=== PATIENT | male | born 1960 | race Caucasian/White ===

== ENCOUNTER 2017-03-24 09:18 | Outpatient (RCR) | payer MEDICARE, OTHER ==
[~2017-03-24 09:18] MED LIST: ALPR2TAB2 PO; ALPR2TAB6 PO; ASP81CT; CARI350T PO; DULO60CA6 PO; HYDR-3720 PO; HYDROCODONE; LISI10TA2 PO; LNS30CCR; LOTREL; OMEP20CA12; QUET50TA21 PO; SIMV20TA3 PO; SMV20T; WARF2.5T56 PO
== END 2017-04-02 12:17 | disposition home or self-care (01) ==
PROVIDERS: ATTEND Orthopaedic Surgery
DX: Z47.1 Aftercare following joint replacement surgery (principal); Z96.651 Presence of right artificial knee joint

== ENCOUNTER 2017-11-22 06:23 | Outpatient (CLI) | payer MEDICARE, OTHER ==
[~2017-11-22] VITALS: Ht 175.3 cm; Wt 81.6 kg
[2017-11-22] MEDS ORDERED: CARB200T PO (15:56)
[2017-11-22] MEDS ORDERED: ALPR2TAB6 PO (15:56)
[2017-11-22] MEDS ORDERED: DULO20CA18 PO (15:56)
[2017-11-22] MEDS ORDERED: LISI-552 PO (15:56)
[2017-11-22] MEDS ORDERED: PANT40TA3 PO (15:56)
[2017-11-22] MEDS ORDERED: MEMA10TA22 PO (15:56)
[2017-11-22] MEDS ORDERED: HYDR-3820 PO (15:56)
[2017-11-22] MEDS ORDERED: PRAV20TA3 PO (15:56)
[2017-11-22] MEDS ORDERED: CARV12.52 PO (15:56)
== END 2017-11-22 15:57 ==
LOC: PREOP 06:23
PROVIDERS: ATTEND Surgery
DX: Z01.818 Encounter for other preprocedural examination (principal)

== ENCOUNTER 2017-11-24 09:55 | Day surgery (SDC) | payer MEDICARE, OTHER ==
[~2017-11-24] VITALS: Ht 175.3 cm; Wt 81.6 kg
[~2017-11-24 09:55] MED LIST changes: +CARB200T PO; +CARV12.52 PO; +DULO20CA18 PO; +HYDR-3820 PO; +LISI-552 PO; +MEMA10TA22 PO; +PANT40TA3 PO; +PRAV20TA3 PO
[2017-11-24] MEDS ORDERED: fentaNYL INJECTION 100 MCG/2 ML AMP IVP PRN (10:15)
[2017-11-24] MEDS ORDERED: LIDOCAINE JELLY 2% (XYLOCAINE) 5 ML TUBE MM PRN (10:15)
[2017-11-24] MEDS ORDERED: MIDAZOLAM 2 MG/2 ML (VERSED) VIAL IVP PRN (10:15)
--- NOTE | 2017-11-24 10:25 | Conscious Sedation/ASA ---
Conscious Sedation Pre-Proced Time Reviewed: 10:20 ASA Class: 3 Airway Mallampati Classification: ([place] appropriate class) I. II. III, IV Lungs Heart ASA score ASA 1: a normal healthy patient ASA 2: a patient with a mild systemic disease (mid diabetes, controlled hypertension, obesity ASA 3: a patient with a severe systemic disease that limits activity (angina , COPD, prior Myocardial infarction) ASA 4: a patient with an incapacitating disease that is a constant threat to life (CHF, renal failure) ASA 5: a moribund patient not expected to survive 24 hrs. (ruptured aneurysm) ASA 6: a declared brain patient whose organs are being harvested. For emergent operations, add the letter E after the classification Grade 2 Sedation Plan: Analgesia, Amnesia, Plan communicated to team members, Discussed options with patient/fam, Discussed risks with patient/fam Note The patient is an appropriate candidate to undergo the planned procedure, sedation, and anesthesia. The patient immediately re-assessed prior to indication. SIENA MULLIGAN MD November 24, 2017 10:25 am
--- NOTE | 2017-11-24 10:29 | Progress Note-Pre Operative ---
Pre-Operative Progress Note H&P Reviewed The H&P was reviewed, patient examined and no changes noted. Date Seen by Provider: November 24, 2017 Time Seen by Provider: 10:20 Date H&P Reviewed: November 24, 2017 Time H&P Reviewed: 10:20 Pre-Operative Diagnosis: GERD, hx polyp SIENA MULLIGAN MD November 24, 2017 10:28 am
[2017-11-24] MEDS ORDERED: ACETAMINOPHEN 325 MG TABLET/CAPLET (TYLENOL) PO PRN (10:30)
[2017-11-24] MEDS ORDERED: ONDANSETRON 4 MG/2 ML (SDV) Z0FRAN IV PRN (10:30)
[2017-11-24] MEDS ORDERED: morphine INJ 10 MG/ML 1ML (SYR OR VIAL) IV PRN (10:30)
[2017-11-24] MEDS: NS IV 500 ML 500 ML IV SCH ×2 (10:30→13:40)
[2017-11-24] MEDS ORDERED: HYDROcodone/APAP 5 MG/325 MG (LORTAB) TAB PO PRN (10:30)
[2017-11-24 10:40] VITALS: BP 136/89
[2017-11-24] MEDS ORDERED: MIDAZOLAM 2 MG/2 ML (VERSED) VIAL ONE ×6 (11:41→13:26)
[2017-11-24] MEDS ORDERED: fentaNYL INJECTION 100 MCG/2 ML AMP ONE (11:41)
[2017-11-24] MEDS ORDERED: LIDOCAINE JELLY 2% (XYLOCAINE) 5 ML TUBE ONE (11:41)
[2017-11-24] MEDS ORDERED: HURRICAINE EXT TUBE (BENZOCAINE) ONE (11:42)
[2017-11-24] MEDS ORDERED: PROPOFOL INJECTION 50 ML IV ONE ×2 (12:12→13:05)
[2017-11-24] MEDS ORDERED: PHENYLEPHRINE 100 MCG/ML 10 ML (ANESTHESIA) SYR ONE (13:20)
[2017-11-24] MEDS ORDERED: NS IV 500 ML 500 ML ONE (13:31)
--- NOTE | 2017-11-24 13:58 | Progress Note-Post Operative ---
Post-Operative Progess Note Surgeon (s)/Flasher Adjuster (s) Surgeon SIENA MULLIGAN MD Flasher Adjuster: none Pre-Operative Diagnosis GERD, hx polyp Post-Operative Diagnosis reflux esophagitis(class B), no HH, mild-mod gastritis. chronic stage 1 ext and int hemorrhoids, mild sigmoid diverticulosis. Procedure & Operative Findings Date of Procedure 11/24/17 Procedure Performed/Findings EGD with bx. Colonoscopy. Anesthesia Type MAC Estimated Blood Loss Estimated blood loss (mL): minimal Specimens/Packing Specimens Removed GE jxn, antrum SIENA MULLIGAN MD November 24, 2017 13:58
[2017-11-24] MEDS ORDERED: HURRICAINE EXT TUBE (BENZOCAINE) XX ONE (14:00)
--- NOTE | 2017-11-24 14:00 | Discharge Inst-Surgical ---
D/C Lap Instructions-ESE Follow Up PRN Activity as tolerated High Fiber Diet 25g or more per day Avoid Alcohol, Caffeine, Spicy [place] and Acid foods. Drink 64 fluid oz or more of fluids per day. Symptoms to Report: Fever over 101 degree F, Nausea/Vomiting If any problems/questions: Contact your physician or go to Emergency Room SIENA MULLIGAN MD November 24, 2017 14:00
[2017-11-24 14:05] VITALS: BP 99/54
[2017-11-24 14:30] VITALS: BP 99/74
[2017-11-24 14:35] VITALS: BP 99/74
--- NOTE | 2017-11-24 14:51 | Anesthesia-General Post-Op ---
MAC Patient Condition Mental Status/LOC: Same as Preop Cardiovascular: Satisfactory Nausea/Vomiting: Absent Respiratory: Satisfactory Pain: Controlled Complications: Absent Post Op Complications Complications None Follow Up Care/Instructions Patient Instructions None needed. Anesthesiology Discharge Order Discharge Order Patient is doing well, no complaints, stable vital signs, no apparent adverse anesthesia problems. OSITO HERNANDEZ DO November 24, 2017 14:51
--- NOTE | 2017-11-24 23:29 | OPERATIVE REPORT ---
DATE OF SERVICE: 11/24/2017 ATTENDING PRIMARY CARE PHYSICIAN: Dr. Eid. PREOPERATIVE DIAGNOSES: Recurrent gastroesophageal reflux disease, screening colonoscopy. POSTOPERATIVE DIAGNOSES: Reflux esophagitis class B, no recurrent hiatal hernia, mild to moderate gastritis. Chronic stage II external and internal hemorrhoids, mild sigmoid diverticulosis. PROCEDURE: EGD with biopsy and colonoscopy. SURGEON: Siena Mulligan MD. ANESTHESIA: Monitored anesthesia care. ESTIMATED BLOOD LOSS: Minimal. FINDINGS: EGD reflux esophagitis class B. Recurrent previous wrap, no recurrent hiatal hernia, mild to moderate gastritis, no formal ulcerations, polyps or any neoplasms. Pylorus and duodenum appeared normal with no distal obstructions. Colonoscopy chronic stage I external and internal hemorrhoids, not actively edematous nor inflamed and no bleeding. There was a mild sigmoid diverticulosis. The remainder of the colon was normal. DISPOSITION: The patient tolerated the procedure well. INDICATIONS: The patient is a 57-year-old male who has had recurrent episodes of epigastric burning sensation as well as crampy pain. He has had a longstanding history of gastroesophageal reflux disease and found to have a hiatal hernia and underwent a hiatal hernia repair as well as a Hill gastropexy in 2006. He reports that this helped with his reflux type of symptoms; however, in the past several months, he reports mild recurrent episodes of discomfort in the epigastric region. He does have positive risk factors including taking nonsteroidal anti-inflammatories as well as chewing tobacco. He also is in need of a followup screening colonoscopy. His last one was approximately 10 years ago. He states that he did have a polyp, which was a tubular adenoma. DESCRIPTION OF PROCEDURE: The patient was brought to the endoscopy suite, laid in the left lateral decubitus position. After adequate IV pain and sedating medications and monitored anesthesia care, the mouthpiece was applied. Endoscope was placed in the mouth, visualizing the pharynx and hypopharyngeal region. Vocal cords, epiglottis and vallecula identified and appeared to be normal. The endoscope was then gently intubated in the esophageal opening and esophagus insufflated. The endoscope was then advanced to the first, second and third portions of the esophagus; at the level of the GE junction, a reflux esophagitis class B identified. There were no ulcers or strictures identified in this region. A biopsy was taken using forceps with visualization of good hemostasis. The endoscope was then easily advanced into the stomach and endoscope retroflexed visualizing no recurrent hiatal hernia with intact previous antireflux procedure. There was a mild to moderate gastritis. No formal ulcers, polyps or any neoplasms identified. A biopsy was taken of the antrum for H. pylori with forceps with visualization of good hemostasis. The endoscope was then advanced to the pylorus and the first and second portions of duodenum, which appeared normal with no distal obstructions. The endoscope was then slowly withdrawn while taking a second look and suctioning of residual air with no additional findings. The patient tolerated this portion of the procedure well. We will recommend the necessary lifestyle and diet accommodation including cessation of caffeinated beverages as well as chewing tobacco as well as small and more frequent meals, avoidance of eating at night as well as head elevation while lying supine. He also needs to avoid caffeine, spicy, greasy and acidic foods. Under the same monitored anesthesia care, we then proceeded with the colonoscopy portion of the procedure. A digital rectal examination was performed, which revealed chronic stage I external and internal hemorrhoids, not actively edematous nor inflamed and no bleeding. Normal sphincter tone was felt and there were no palpable masses. Prostate gland was palpable and appeared normal. The endoscope was then intubated to the anus and rectum gently insufflated. The endoscope was then advanced through the valves of [place] in the rectum with no polyps or any neoplasms identified. We then proceeded through the sigmoid colon where mild sigmoid diverticulosis identified. The endoscope was then advanced to the remainder of the descending, transverse and ascending colon to the cecum. These segments were normal. There were no polyps or any neoplasms identified throughout the colon or rectum. The endoscope was then slowly withdrawn while taking a second look and suctioning of residual air with no additional findings. The patient tolerated the procedure well. We will recommend a high-fiber diet with at least 30 grams of fiber per day as well as at least 64 fluid ounces of water daily to promote soft stools on a daily basis. He does not need another colonoscopy for another 10 years. 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
== END 2017-11-24 14:35 | disposition home or self-care (01) ==
LOC: ENDO 09:55
PROVIDERS: ATTEND Surgery
DX: Z12.11 Encounter for screening for malignant neoplasm of colon (principal); K21.0 Gastro-esophageal reflux disease with esophagitis; K29.70 Gastritis, unspecified, without bleeding; K57.30 Diverticulosis of large intestine without perforation or abscess without bleeding; K64.1 Second degree hemorrhoids; F17.220 Nicotine dependence, chewing tobacco, uncomplicated; Z86.010 Personal history of colon polyps; I10 Essential (primary) hypertension; E78.00 Pure hypercholesterolemia, unspecified; F03.90 Unspecified dementia, unspecified severity, without behavioral disturbance, psychotic disturbance, mood disturbance, and anxiety; F41.9 Anxiety disorder, unspecified; F32.9 Major depressive disorder, single episode, unspecified; Z79.899 Other long term (current) drug therapy; Z95.1 Presence of aortocoronary bypass graft
CPT/HCPCS: 43239; G0105; 88305

== ENCOUNTER → 2018-11-17 | Outpatient (CLI) | payer MEDICARE, OTHER ==
[2018-11-17 08:37] LABS: BASOPHILS % (AUTO) 0 % (0-10); EOSINOPHILS # (AUTO) 0.1 10^3/uL (0.0-0.3); EOSINOPHILS % (AUTO) 1 % (0-10); HEMATOCRIT 44 % (40-54); HEMOGLOBIN 15.4 G/DL (13.3-17.7); LYMPHOCYTES # (AUTO) 1.6 X 10^3 (1.0-4.0); LYMPHOCYTES % (AUTO) 23 % (12-44); MEAN CORPUSCULAR HEMOGLOBIN 30 PG (25-34); MEAN CORPUSCULAR HGB CONC 35 G/DL (32-36); MEAN CORPUSCULAR VOLUME 85 FL (80-99); MONOCYTES # (AUTO) 1.1 X 10^3 (0.0-1.0); MONOCYTES % (AUTO) 16 % (0-12); NEUTROPHILS # (AUTO) 4.2 X 10^3 (1.8-7.8); NEUTROPHILS % (AUTO) 60 % (42-75); PLATELET COUNT 229 10^3/uL (130-400)
--- NOTE | 2018-11-17 08:57 | Diagnostic Imaging Report ---
PROCEDURE: CT abdomen and pelvis without contrast. TECHNIQUE: Multiple contiguous axial images were obtained through the abdomen and pelvis without the use of intravenous contrast. Auto Exposure Controls were utilized during the CT exam to meet ALARA standards for radiation dose reduction. INDICATION: Generalized abdominal pain with nausea, vomiting and diarrhea. Correlation is made with prior study from 07/25/2013. Lung bases demonstrate scarring or atelectasis in the left lower lobe. No discrete liver mass is identified. The gallbladder is surgically absent. No biliary ductal dilatation is seen. There is some atrophy to the pancreas. Spleen is normal in size. No adrenal mass is detected. No renal calculi or hydronephrosis is identified. Cystic mass left kidney posteriorly measures 3.2 cm compared with 0.2 cm on prior study from 2013. Aorta is heavily calcified but nonaneurysmal. Bowel loops appear to be of normal caliber. No obstruction is seen. There is no ascites. The bladder is decompressed. No inflammatory process is seen. No definite abdominal or pelvic lymphadenopathy is detected. Bony structures are nonacute. IMPRESSION: 1. Left basilar atelectasis or scarring. 2. No acute feature in the abdomen or pelvis is identified. Dictated by: Dictated on workstation # [id number]
[2018-11-17 08:58] LABS: ALANINE AMINOTRANSFERASE 20 U/L (0-55); ALBUMIN 4.2 GM/DL (3.2-4.5); ALKALINE PHOSPHATASE 95 U/L (40-136); AMYLASE 36 U/L (25-125); BILIRUBIN,TOTAL 0.5 MG/DL (0.1-1.0); BUN/CREATININE RATIO 12; CALCIUM 9.2 MG/DL (8.5-10.1); CARBON DIOXIDE 27 MMOL/L (21-32); CHLORIDE 94 MMOL/L (98-107); CREATININE SERUM 0.97 MG/DL (0.60-1.30); GFR ESTIMATED > 60; GLUCOSE 108 MG/DL (70-105); LIPASE 15 U/L (8-78); POTASSIUM 3.2 MMOL/L (3.6-5.0); SODIUM 133 MMOL/L (135-145); TOTAL PROTEIN 7.2 GM/DL (6.4-8.2)
== END ==
LOC: RAD 08:21
PROVIDERS: ATTEND Nurse Practitioner Family
DX: R10.84 Generalized abdominal pain (principal); R11.2 Nausea with vomiting, unspecified; R19.7 Diarrhea, unspecified; Z90.49 Acquired absence of other specified parts of digestive tract
CPT/HCPCS: 36415; 74176; 80053; 82150; 83690; 85025

== ENCOUNTER → 2019-12-08 | Outpatient (CLI) | payer MEDICARE, OTHER ==
[~2019-12-08] MED LIST changes: +ACHYD1T PO; +CATHETER FLUSH 10 ML SYR IV PRN; -DULO20CA18 PO; +DULO20CA19 PO; +HOLD METFORMIN - RECEIVED CONTRAST 20 ML VIAL IV SCH; -HYDR-3820 PO; +IOHEXOL 350 MG/ML 100 ML (OMNIPAQUE 350) VIAL IV ONE; -MEMA10TA22 PO; +MEMA10TA57 PO; +NS 100 ML (IVPB) BAG IV ONE; +RT-ALBUTEROL SULF 2.5 MG/3 ML PRE-MIX VIAL INH ONE
[2019-12-08 14:29] LABS: BUN/CREATININE RATIO 9; CREATININE SERUM 0.93 MG/DL (0.60-1.30); GFR ESTIMATED > 60
[2019-12-08 16:20] LABS: ABG BASE EXCESS -1.1 MMOL/L (-2.5-2.5); ABG OXYGEN SATURATION 97 % (94-100); ABG PCO2 40 MMHG (35-45); ABG PH 7.38 (7.37-7.43); ABG PO2 89 MMHG (79-93); ABG TCO2 24.5 MMOL/L (21.0-31.0); ALLENS TEST YES-POS; INSPIRED O2 RA; PATIENT TEMP 36.7; VENTILATOR NO
--- NOTE | 2019-12-08 18:56 | Diagnostic Imaging Report ---
CT CHEST W TECHNIQUE: Multiple contiguous axial images were obtained through the chest with the use of intravenous contrast. All CT scans use one or more of the following dose optimizing techniques: automated exposure control, MA and/or KvP adjustment based on a patient size and exam type, or iterative reconstruction. INDICATION: Shortness of breath COMPARISON: CT chest from 12/17/2010 FINDINGS: Lungs and airway: No endoluminal nodule within the trachea. Left basilar bandlike atelectasis/scar is present. There is small amount of right basilar linear atelectasis. No pulmonary mass or nodule that would suggest neoplastic process. Pleura: No pleural effusion or pneumothorax. Heart and mediastinum: Thyroid is normal were seen. No supraclavicular or axillary lymphadenopathy. No mediastinal, hilar or juxtaphrenic lymphadenopathy. The heart is enlarged and has undergone CABG. No pericardial effusion. Normal caliber thoracic aorta. Esophagus is unremarkable. Upper abdomen: Cholecystectomy. No acute abnormality upper abdomen. Musculoskeletal: Sternotomy. No worrisome focal osseous lesions. IMPRESSION: 1. No acute abnormality in the chest. 2. No features of neoplasm. 3. Chronic left basilar linear atelectasis/scar. Dictated by: Dictated on workstation # [id number]
== END ==
LOC: RT 13:50
PROVIDERS: ATTEND Nurse Practitioner Family
DX: J98.4 Other disorders of lung (principal); R06.02 Shortness of breath; R05 Cough; Z95.1 Presence of aortocoronary bypass graft; Z90.49 Acquired absence of other specified parts of digestive tract; Z98.890 Other specified postprocedural states
CPT/HCPCS: 36415; 36600; 71260; 82565; 82805; 84520; 94060; 94726; 94729

== ENCOUNTER → 2020-01-04 | Outpatient (CLI) | payer MEDICARE, OTHER ==
[~2020-01-04] MED LIST changes: -CATHETER FLUSH 10 ML SYR IV PRN; -HOLD METFORMIN - RECEIVED CONTRAST 20 ML VIAL IV SCH; -IOHEXOL 350 MG/ML 100 ML (OMNIPAQUE 350) VIAL IV ONE; -NS 100 ML (IVPB) BAG IV ONE; -RT-ALBUTEROL SULF 2.5 MG/3 ML PRE-MIX VIAL INH ONE
== END ==
LOC: CARD 09:33
PROVIDERS: ATTEND Internal Medicine Cardiovascular Disease
DX: I34.0 Nonrheumatic mitral (valve) insufficiency (principal); R55 Syncope and collapse; E78.5 Hyperlipidemia, unspecified; I10 Essential (primary) hypertension; I25.10 Atherosclerotic heart disease of native coronary artery without angina pectoris; R00.2 Palpitations
CPT/HCPCS: 93306

== ENCOUNTER → 2020-01-08 | Outpatient (CLI) | payer MEDICARE, OTHER ==
[~2020-01-08] VITALS: Ht 175 cm; Wt 85.0 kg
[~2020-01-08] MED LIST changes: +CATHETER FLUSH 10 ML SYR IV PRN; +REGADENOSON 0.4 MG/5 ML SYR (LEXISCAN) IV ONE
[2020-01-08 11:42] VITALS: BP 155/97
--- NOTE | 2020-01-08 11:42 | Cardiology Stress Test Report ---
Stress Test Report Date of Procedure/Referring: Date of Procedure: Jan 08, 2020 PCP Josue Carver MD Admitting Physician Endy Grimm MD Indications: Syncope Baseline Heart Rate: 60 Baseline Blood Pressure: Blood Pressure Systolic: 155 Blood Pressure Diastolic: 97 Baseline EKG: Baseline EKG: Sinus rhythm Summary After explaining the procedure to the patient, he signed a consent and then br ought to the stress nuclear laboratory. Patient received 0.4 mg Lexiscan for stress test, ECG, heart rate and blood pressure were monitored continuously. Resting and stress dose of radio tracer were injected, imaging was acquired and reviewed in short axis, horizontal long axis and vertical long axis views. TID: 1.03 SSS: 9 SDS: 4 EF: 68 1. Patient tolerated Lexiscan well 2. Diaphragmatic attenuation with decreased uptake involving the whole inferior wall and inferolateral wall with mild reversibility 3. Normal left ventricular size, EF 68 percent JOSUE CARVER MD Jan 08, 2020 11:42
== END ==
LOC: CARD 07:56
PROVIDERS: ATTEND Internal Medicine Cardiovascular Disease
DX: I25.10 Atherosclerotic heart disease of native coronary artery without angina pectoris (principal); R00.2 Palpitations; I10 Essential (primary) hypertension; E78.5 Hyperlipidemia, unspecified; J98.6 Disorders of diaphragm
CPT/HCPCS: 78452; 93017; A9502

== ENCOUNTER → 2020-01-10 | Outpatient (CLI) | payer MEDICARE ==
[~2020-01-10] MED LIST changes: +ATOR40TA70 PO; +CARV25TA PO; -CATHETER FLUSH 10 ML SYR IV PRN; +CETI10TA17 PO; +DONE10TA41 PO; +HYDR25TA4 PO; +ISOS30TA3 PO; +LIPA1CAP67 PO; +LISI40TA PO; +METO5TAB2 PO; +MONT10TA26 PO; +PRAZ2CAP2 PO; +QUET100T PO; -REGADENOSON 0.4 MG/5 ML SYR (LEXISCAN) IV ONE; +RT-ALBUINH INH; +TOPI50TA13 PO; +TRZ50T PO; +VORT20TA PO
== END ==
LOC: LABNPT 06:59
PROVIDERS: ATTEND Internal Medicine Cardiovascular Disease
DX: Z01.812 Encounter for preprocedural laboratory examination (principal); Z20.828 Contact with and (suspected) exposure to other viral communicable diseases
CPT/HCPCS: 87635

== ENCOUNTER 2020-01-12 07:06 | Day surgery (SDC) | payer MEDICARE, OTHER ==
[2020-01-12] VITALS (12 sets, daily range): BP systolic 121–176; BP diastolic 80–89
[~2020-01-12] VITALS: Ht 175 cm; Wt 87.0 kg
[~2020-01-12 07:06] MED LIST changes: -ATOR40TA70 PO; -CARV25TA PO; -CETI10TA17 PO; -DONE10TA41 PO; -HYDR25TA4 PO; -ISOS30TA3 PO; -LIPA1CAP67 PO; -LISI40TA PO; -METO5TAB2 PO; -MONT10TA26 PO; -PRAZ2CAP2 PO; -QUET100T PO; -RT-ALBUINH INH; -TOPI50TA13 PO; -TRZ50T PO; -VORT20TA PO
[2020-01-12] MEDS ORDERED: NS IV 1000 ML 1,000 ML ONE (07:26)
[2020-01-12] MEDS ORDERED: LIDOCAINE 1% INJ 20 ML 20 ML VIAL ONE (07:26)
[2020-01-12] MEDS ORDERED: HEParin (CATH LAB) 2,000 ML IV ONE (07:26)
[2020-01-12] MEDS ORDERED: NS IV 1000 ML 1,000 ML IV SCH ×2 (07:30→09:26)
[2020-01-12 07:56] LABS: HEMOGLOBIN 13.9 G/DL (13.3-17.7); MEAN PLATELET VOLUME 8.7 FL (7.4-10.4); RED CELL DISTRIBUTION WIDTH 13.6 % (10.0-14.5); WHITE BLOOD COUNT 6.2 10^3/uL (4.3-11.0)
[2020-01-12 07:59] LABS: BILIRUBIN,URINE NEGATIVE (NEGATIVE); CLARITY,URINE CLEAR; COLOR,URINE YELLOW; GLUCOSE, URINE (UA) NEGATIVE (NEGATIVE); KETONES,URINE NEGATIVE (NEGATIVE); LEUKOCYTE ESTERASE ,URINE NEGATIVE (NEGATIVE); NITRITE,URINE NEGATIVE (NEGATIVE); PH,URINE 5.5 (5-9); PROTEIN,URINE NEGATIVE (NEGATIVE)
[2020-01-12] MEDS ORDERED: LIPA1CAP67 PO (08:03)
[2020-01-12] MEDS ORDERED: DONE10TA41 PO (08:03)
[2020-01-12] MEDS ORDERED: RT-ALBUINH INH (08:03)
[2020-01-12] MEDS ORDERED: QUET100T PO (08:03)
[2020-01-12] MEDS ORDERED: ATOR40TA70 PO (08:03)
[2020-01-12] MEDS ORDERED: ISOS30TA3 PO (08:03)
[2020-01-12] MEDS ORDERED: MONT10TA26 PO (08:03)
[2020-01-12] MEDS ORDERED: METO5TAB2 PO (08:03)
[2020-01-12] MEDS ORDERED: HYDR25TA4 PO (08:03)
[2020-01-12] MEDS ORDERED: PRAZ2CAP2 PO (08:03)
[2020-01-12] MEDS ORDERED: TRZ50T PO (08:03)
[2020-01-12] MEDS ORDERED: CETI10TA17 PO (08:03)
[2020-01-12] MEDS ORDERED: VORT20TA PO (08:03)
[2020-01-12] MEDS ORDERED: LISI40TA PO (08:03)
[2020-01-12] MEDS ORDERED: TOPI50TA13 PO (08:03)
[2020-01-12] MEDS ORDERED: CARV25TA PO (08:03)
[2020-01-12 08:14] LABS: BACTERIA,URINE NEGATIVE /HPF; WBC,URINE RARE /HPF
[2020-01-12 08:16] LABS: PROTHROMBIN TIME PATIENT 13.3 SEC (12.2-14.7)
[2020-01-12 08:24] LABS: ALBUMIN 4.2 GM/DL (3.2-4.5); BILIRUBIN,TOTAL 0.4 MG/DL (0.1-1.0); CALCIUM 8.7 MG/DL (8.5-10.1); CREATININE SERUM 1.23 MG/DL (0.60-1.30); POTASSIUM 3.4 MMOL/L (3.6-5.0); TOTAL PROTEIN 7.1 GM/DL (6.4-8.2)
[2020-01-12] MEDS ORDERED: MIDAZOLAM 5 MG/5 ML (VERSED) VIAL ONE (08:32)
[2020-01-12] MEDS ORDERED: fentaNYL INJECTION 100 MCG/2 ML AMP ONE (08:32)
--- NOTE | 2020-01-12 08:47 | Cardiac Procedure Note-CS/ASA ---
Pre-Procedure Note Pre-Op Procedure Note H&P Reviewed The H&P was reviewed, patient examined and no changes noted. Date H&P Reviewed: Jan 12, 2020 Time H&P Reviewed: 08:47 Conscious Sedation Pre-Proced Time 08:47 ASA Score 3 For ASA 3 and 4: Consider anesthesia and medical clearance. Also, for patients with a history of failed moderate sedation consider anesthesia. Airway Lungs Heart ASA score ASA 1: a normal healthy patient ASA 2: a patient with a mild systemic disease (mid diabetes, controlled hypertension, obesity x ASA 3: a patient with a severe systemic disease that limits activity (angina, COPD, prior Myocardial infarction) ASA 4: a patient with an incapacitating disease that is a constant threat to life (CHF, renal failure) ASA 5: a moribund patient not expected to survive 24 hrs. (ruptured aneurysm) ASA 6: a declared brain- patient whose organs are being harvested. For emergent operations, add the letter E after the classification Mallampati Classification Grade 3 Sedation Plan Analgesia, Amnesia, Plan communicated to team members, Discussed options with patient/fam, Discussed risks with patient/fam The patient is an appropriate candidate to undergo the planned procedure, sedation, and anesthesia. The patient immediately re-assessed prior to indication. JOSUE SWENSON MD Jan 12, 2020 08:47
[2020-01-12] MEDS ORDERED: PATIENT MAY USE OWN MEDS, ALL PO SCH (09:30)
--- NOTE | 2020-01-12 09:31 | Discharge Inst-Post CATH ---
Discharge Inst-CATH/EP Problems Reviewed?: Yes Post Cardiac Cath/EP D/C Inst Follow Up/Plan Appointment with Dr Carver's office in 2-4 weeks <b>CARDIAC CATH/EP PROCEDURE DISCHARGE INSTRUCTIONS</b> ACTIVITY * Go Home directly and rest. * Limit activity of the leg (or wrist if it was used) for 7 days including aerobics, swimming, jogging, bicycling, etc. * Restrict stair-climbing for 7 days if possible, if not, climb up with your non-cath leg, then bring together on the same step. * Avoid lifting, pushing, pulling or excessive movement of the affected extremity for 7 days. * Customary sexual activity may be resumed after 2 days-use caution not to use a position that strains or causes pain to the affected extremity. * No driving for 24 hours. * NO SMOKING. * Avoid straining for bowel movements for 7 days. * Gentle walking on level ground is allowed. * Returning to work will depend on the type of procedure and the results. Your doctor will discuss this with you. CALL YOUR DOCTOR FOR ANY OF THE FOLLOWING: *If bleeding from the puncture site occurs- Apply gentle pressure to site with clean cloth and call your doctor or EMS. * If a knot or lump forms under the skin, increases in size, or causes pain. * If bruising appears to be worsening or moving further down your leg instead of disappearing. * Temperature above 101 F. CARE OF YOUR GROIN INCISION; * Bruising or purple discoloration of the skin near the puncture site is common. * You may shower only, no bathtub bathing for 5 days. Be careful to avoid slipping as your leg may feel stiff. * If a closure device was used on your femoral artery, please see the attached guide regarding care of the device and your leg. * Leave dressing on FOR 24 hours. CARE OF YOUR WRIST INCISION; * Bruising or purple discoloration of the skin near the puncture site is common. * You may shower. * DO NOT submerge wrist. * Leave dressing on FOR 24 hours. JOSUE CARVER MD Jan 12, 2020 9:31 am
--- NOTE | 2020-01-12 09:37 | Cardiac Cath Report ---
Cardiac Cath Report Physician (s)/Family Service Worker (s) Physician JOSUE SWENSON MD Pre-Procedure Diagnosis Pre-Procedure Diagnosis: coronary artery disease Post-Procedure Note Procedure Start Date: Jan 12, 2020 Name of Procedure: Left heart catheterization Vein graft angiogram MCFADDEN angiogram Findings/Procedure Note PROCEDURE NOTE: 60-year-old gentleman with history of coronary artery disease, CABG, has been having chest pain, had an abnormal stress test scheduled for cardiac catheterization possible PTCA. After explaining the procedure to the patient, all pros and cons were explained, all questions were answered. The patient signed the consent and then he was placed on the cardiac catheterization laboratory. Groin was prepped SL fashion local anesthesia was used. Sheath placed in the right femoral artery. Alexandra right and left catheter were used to access the coronary system.Vein Graft evaluated. MCFADDEN evaluated. Pigtail was used to access the left ventricular cavity. Left ventriculogram was done At the end of the procedure the sheath was removed. Closure device was used FINDINGS: Hemodynamics LV 122/19, end-diastolic pressure of 19 Aorta 123/60 mean of 88 ANATOMY: Left Main has severe disease Left Anterior Descending is occluded, competitive flow through the MCFADDEN and a vein graft to the diagonal Left Circumflex is occluded, competitive flow through the vein graft to the obtuse marginal Right Coronory Artery is occluded, competitive flow through the vein graft to the right coronary artery MCFADDEN to LAD is patent with excellent flow Vein Graft evaluation showed 3 vein graft: Vein graft to the right coronary artery is patent with excellent flow distally, small vessel disease Vein graft/jump graft to the diagonal and obtuse marginal branch is patent with excellent flow distally, small vessel disease LV Gram was done showing normal left ventricular size with mild diffuse hypokine noel, estimated ejection fraction 50 percent CONCLUSION: 1. Patent MCFADDEN to LAD, vein graft to right coronary artery, vein graft/jump graft to the diagonal and obtuse marginal branches and MCFADDEN to LAD with excellent flow distally, small vessel disease distally noted 2. Severe [place] coronary artery disease, corrected by the bypasses described above 3. Normal left ventricular size, mild diffuse hypokinesia, EF 50 percent DISCUSSION AND RECOMMENDATION: Medical therapy is recommended no intervention is warranted Anesthesia Type: Conscious Sedation Estimated blood loss (mL): 25 ml Contrast Amount: 90 ml Total Radiation Dose: 638 mGy Post-Procedure Diagnosis Post-operative diagnosis: Coronary artery disease Chest pain Hypertension Hyperlipidemia JOSUE SWENSON MD Jan 12, 2020 9:37 am
--- NOTE | 2020-01-12 11:07 | Diagnostic Imaging Report ---
INDICATION: Pre-heart catheterization. Patient has chest pain and coronary artery disease. Time of exam: 7:53 AM Comparison is made with prior chest from 07/19/2014. Changes of median sternotomy and CABG noted. Left hemidiaphragm is elevated. There is resultant left basilar subsegmental atelectasis. Otherwise, the lungs are clear. Pulmonary vascularity is normal. There is no effusion or pneumothorax. IMPRESSION: Left basilar subsegmental atelectasis. No acute feature is detected. Dictated by: Dictated on workstation # [id number]
--- OUTSIDE RECORDS SUMMARY | 2020-01-12 11:23 | XMS REPORT ---
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 100-240 Hospita 04-2 [Mass/Vol] Interpreta mg/dL l 020 tion Code Distric 09:11-0 t [address] [place] [address] ([id number]) Cholesterol in HDL 44 mg/dL Invalid 30-85 Hospita 02-0 4-2 [Mass/Vol] Interpreta mg/dL l 020 tion Code Distric 09:11-0 t [address] [place] [address] ([id number]) Cholesterol in LDL 144 mg/dL High 0-100 Hospita 02-0 4-2 [Mass/Vol] mg/dL l 020 Distric 09:11-0 t [address] [place] [address] ([id number]) Cholesterol in VLDL 18 mg/dL Invalid 0-42 mg/dL Hospita 2 [Mass/Vol] Interpreta l 020 tion Code Distric 09:11-0 t [address] [place] [address] ([id number]) Cholesterol.total/Ch 4.7 {ratio} Invalid 3.7-6.7 Hospita olesterol in HDL Interpreta l 020 [Mass ratio] tion Code Distric 09:-0 t [address] [place] [address] ([id number]) Creatinine 0.94 mg/dL Invalid 0.50-1.50 Hospita 2 [Mass/Vol] Interpreta mg/dL l 020 tion Code Distric 09:11-0 t [address] [place] [address] ([id number]) Eosinophils (Bld) 0.1 10*3/uL Invalid 0.0-0.7 Hospita 2 [#/Vol] Interpreta K/uL l 020 tion Code Distric 09:11-0 t [address] [place] [address] ([id number]) Eosinophils/100 WBC 2.1 % Invalid 0.0-7.0 % Hospita 10-04 (Bld) Interpreta l 020 tion Code Distric 09:11-0 t #1 of 500 [facility] () Erythrocyte 12.6 % Invalid 11.6-14.8 Hospita distribution width Interpreta % l 020 (RBC) [Ratio] tion Code Distric 09:11-0 t #1 of 500 [facility] () GFR/1.73 sq 82 mL/min/{1.73_m2} Invalid >59 Hospita 0 2-04-2 M.predicted MDRD Interpreta mL/min/1.7 l 020 (S/P/Bld) [Vol tion Code 3m2 Distric 09:11-0 rate/Area] t [address] [place] [address] () Globulin (S) 2.8 g/dL Invalid 2.3-3.5 Hospita [Mass/Vol] Interpreta g/dL l 020 tion Code Distric 09:11-0 t [address] [place] [address] () Glucose [Mass/Vol] 111 mg/dL High 70-110 Hospita 02-0 4-2 mg/dL l 020 Distric 09:11-0 t [address] [place] [address] ([id number]) HCO3 (P) [Moles/Vol] 28 Invalid 22-33 Hospita Interpreta mEq/L l 020 tion Code Distric 09:11-0 t [address] [place] [address] () Hematocrit (Bld) 44.1 % Invalid 42.0-52.0 Hospita [Volume fraction] Interpreta % l 020 tion Code Distric 09:11-0 t [address] [place] [address] ([id number]) Hemoglobin (Bld) 15.6 g/dL Invalid 14.0-17.0 Hospita 08-08- 2 [Mass/Vol] Interpreta g/dL l 020 tion Code Distric 09:11-0 t [address] [place] [address] () Lymphocytes (Bld) 0.86 10*3/uL Invalid 0.60-3.40 Hospita [#/Vol] Interpreta K/uL l 020 tion Code Distric 09:11-0 t [address] [place] [address] ([id number]) Lymphocytes/100 WBC 20.2 % Invalid 10.0-50.0 Hospita 02- 04-2 (Bld) Interpreta % l 020 tion Code Distric 09:11-0 t #1 of 500 [facility] ([id number]) MCH (RBC) [Entitic 31.0 pg Invalid 27.0-31.2 Hospita 02-0 4-2 mass] Interpreta pg l 020 tion Code Distric 09:11-0 t #1 of 500 [facility] ([id number]) MCHC (RBC) 35.4 g/dL Invalid 32.0-36.0 Hospita 08-08-2 [Mass/Vol] Interpreta g/dL l 020 tion Code Distric 09:11-0 t #1 of 500 [facility] ([id number]) MCV (RBC) [Entitic 87.5 fL Invalid 80.0-97.0 Hospita 02-0 4-2 vol] Interpreta fL l 020 tion Code Distric 09:11-0 t #1 of 500 [facility] (63726) Monocytes (Bld) 0.7 10*3/uL Invalid 0.0-0.9 Hospita 08-08 -2 [#/Vol] Interpreta K/uL l 020 tion Code Distric 09:11-0 t #1 of 500 [facility] ([id number]) Monocytes/100 WBC 16.2 % High 0.0-12.0 % Hospita 02-0 4-2 (Bld) l 020 Distric 09:11-0 t #1 of 500 [facility] (52403) Neutrophils (Bld) 2.61 10*3/uL Invalid 2.00-6.90 Hospita 04-2 [#/Vol] Interpreta K/uL l 020 tion Code Distric 09:11-0 t #1 of 500 [facility] ([id number]) Neutrophils/100 WBC 61.3 % Invalid 37.0-80.0 Hospita 04-2 (Bld) Interpreta % l 020 tion Code Distric 09:11-0 t #1 of 500 [facility] (76137) Osmolality Calc 281 Invalid 280-295 Hospita 08-08-2 [Osmolality] Interpreta l 020 tion Code Distric 09:11-0 t #1 of 500 [facility] ([id number]) Platelet mean volume 9.7 fL Invalid 7.4-10.0 Hospita -2 (Bld) [Entitic vol] Interpreta fL l 020 tion Code Distric 09:11-0 t [address] [place] [address] () Platelets (Bld) 217 10*3/uL Invalid 150-400 Hospita 08-082 [#/Vol] Interpreta K/uL l 020 tion Code Distric 09:11-0 t [address] [place] [address] () Potassium 3.5 mmol/L Invalid 3.5-5.3 Hospita [Moles/Vol] Interpreta mmol/L l 020 tion Code Distric 09:11-0 t [address] [place] [address] () Protein [Mass/Vol] 7.4 g/dL Invalid 6.0-8.3 Hospita 02-0 4-2 Interpreta g/dL l 020 tion Code Distric 09:11-0 t [address] [place] [address] () RBC (Bld) [#/Vol] 5.04 10*6/uL Invalid 4.20-5.40 Hospita Interpreta M/uL l 020 tion Code Distric 09:11-0 t [address] [place] [address] () Sodium [Moles/Vol] 136 mmol/L Invalid 134-148 Hospita 10-04 Interpreta mmol/L l 020 tion Code Distric 09:11-0 t [address] [place] [address] () Triglyceride 90 mg/dL Invalid 35-160 Hospita 2 [Mass/Vol] Interpreta mg/dL l 020 tion Code Distric 09:11-0 t [address] [place] [address] () TSH Qn 0.58 Invalid 0.32-5.00 Hospita 2 Interpreta mIU/mL l 020 tion Code Distric 09:11-0 t [address] [place] [address] () Urea nitrogen 10 mg/dL Invalid 5-25 mg/dL Hospita 2 [Mass/Vol] Interpreta l 020 tion Code Distric 09:11-0 t [address] [place] [address] () WBC (Bld) [#/Vol] 4.26 10*3/uL Low 5.00-10.00 Hospita 0 2-04-2 K/uL l 020 Distric 09:11-0 t #1 of 500 [facility] ([id number]) laboratory on 2018-12-23 Base excess standard -1.00 Low 1.80-4.20 Hospita Calc (BldA) mmol/L l 019 [Moles/Vol] Distric 12:15-0 t #1 of 400 [facility] () CO2 (Bld) [Partial 41 Invalid 35-45 Hospita - 1-2 pressure] Interpreta mm/Hg l 019 tion Code Distric 12:15-0 t #1 of 400 [facility] () HCO3 (BldMV) 24 Invalid 20-31 Hospita [Moles/Vol] Interpreta mmol/L l 019 tion Code Distric 12:15-0 t #1 of 400 [facility] () Oxygen adjusted to 80 Invalid 80-95 Hospita 12-04 1-2 patient's actual Interpreta mm/Hg l 019 temperature (BldA) tion Code Distric 12:15-0 [Partial pressure] t #1 of 400 [facility] () Oxygen saturation 96 Invalid 95-100 % [facility] to 0.5 Interpreta l 019 (BldA) [Partial tion Code Distric 12:15-0 pressure] t #1 of 400 [facility] ([id number]) pH (Bld) 7.38 [pH] Invalid 7.35-7.45 Hospita Interpreta l 019 tion Code Distric 12:15-0 t #1 of 400 [facility] ([id number]) laboratory on 2018-12-22 F. tularensis IgG Negative Invalid Negative [facility] 12-22 (S) [Titer] Interpreta ([id number]) 019 tion Code 07:24-0 400 F. tularensis IgM Negative Invalid Negative [facility] 12-22 (S) [Titer] Interpreta ([id number]) 019 tion Code 07:24-0 400 laboratory on 2018-12-21 B. burgdorferi IgM <0.80 Invalid 0.00-0.79 [facility] 06- 9-2 IA Qn (S) Interpreta index ([id number]) 019 tion Code 12:22-0 400 R. rickettsii IgM Qn 0.30 Invalid 0.00-0.89 [facility] 06 -19-2 (S) Interpreta index ([id number]) 019 tion Code 05:01-0 400 laboratory on 2018-12-20 A. phagocytophilum Negative Invalid Neg:<1:64 [facility] 06-1 8-2 IgG IF (S) [Titer] Interpreta ([id number]) 019 tion Code 14:33-0 400 A. phagocytophilum Negative Invalid Neg:<1:20 [facility] 06-1 8-2 IgM IF (S) [Titer] Interpreta ([id number]) 019 tion Code 14:53-0 400 E. chaffeensis IgG Negative Invalid Neg:<1:64 [facility] 06-1 8-2 IF (S) [Titer] Interpreta ([id number]) 019 tion Code 14:33-0 400 E. chaffeensis IgM Negative Invalid Neg:<1:20 [facility] 06-1 8-2 IF (S) [Titer] Interpreta ([id number]) 019 tion Code 14:53-0 400 laboratory on 2018-12-18 R. rickettsii IgG IA Negative Invalid Negative [facility] 16-2 Ql (S) Interpreta ([id number]) 019 tion Code 18:03-0 400 laboratory on 2018-12-17 B. burgdorferi <0.91 Invalid 0.00-0.90 [facility] 15-2 IgG+IgM Qn (S) Interpreta ISR ([id number]) 019 tion Code 05:03-0 400 not yet categorized on 2018-12-15 CULTURE SOURCE drawn @ [facility] l 019 Distric 15:30-0 t #1 of 400 [facility] ([id number]) CULTURE SOURCE drawn @ [facility] l 019 Distric 16:00-0 t #1 of 400 [facility] ([id number]) E. CHAFFEENSIS (HME) Negative Invalid NEG:<1:64 [facility] Interpre[facility] l 019 tion Code Distric 15:30-0 t #1 of 400 [facility] ([id number]) E. CHAFFEENSIS (HME) Negative Invalid NEG:<1:20 Hospita IGM TITER Interpreta l 019 tion Code Distric 15:30-0 t [address] [place] [address] ([id number]) [facility] Distric 15:30-0 t [address] [place] [address] ([id number]) FRANCISELLA Negative Invalid NEGATIVE [facility] TULARENSIS IGG Interpreta l 019 tion Code Distric 15:30-0 t [address] [place] [address] ([id number]) FRANCISELLA Negative [facility]IVE [facility] TULARENSIS IGM Interpreta l 019 tion Code Distric 15:30-0 t [address] [place] [address] ([id number]) HGE IGG TITER Negative Invalid NEG:<1:64 [facility] Interpreta l 019 tion Code Distric 15:30-0 t [address] [place] [address] ([id number]) HGE IGM TITER Negative Invalid NEG:<1:[address] Interpreta l 019 tion Code Distric 15:30-0 t [address] [place] [address] ([id number]) LYME DISEASE AB, <0.80 Invalid 0.00-0.79 [facility] QUANT, IGM Interpreta INDEX l 019 tion Code Distric 15:30-0 t [address] [place] [address] ([id number]) LYME IGG/IGM AB <0.91 Invalid 0.00-0.90 [facility] Interpreta ISR l 019 tion Code Distric 15:30-0 t [address] [place] [address] ([id number]) MEDIA PLATED Setup at 21:26 on 12/15/2018 [facility] Blood Culture Media Position [id number] l 019 Distric 15:30-0 t [address] [place] [address] ([id number]) MEDIA PLATED Setup at 21:25 on 12/15/2018 [facility] Blood Culture Media Position A11 l 019 Distric 16:00-0 t [address] [place] [address] ([id number]) PRELIM CULTURE Negative [facility] RESULTS l 019 Distric 15:30-0 t [address] [place] [address] ([id number]) RMSF, IGG, EIA Negative Invalid NEGATIVE [facility] Interpreta l 019 tion Code Distric 15:30-0 t [address] [place] [address] ([id number]) CIERRA MTN SPOTTED 0.30 Invalid 0.00-0.89 Hospita 12-15 -2 FEVER, IGM Interpreta INDEX l 019 tion Code Distric 15:30-0 t [address] [place] [address] ([id number]) laboratory on 2018-12-15 Albumin BCG dye 3.9 Invalid 3.6-5.1 Hospita 12-15-2 [Mass/Vol] Interpreta g/dL l 019 tion Code Distric 15:30-0 t [address] [place] [address] ([id number]) ALP [Catalytic 120 U/L Invalid 35-130 U/L Hospita activity/Vol] Interpreta l 019 tion Code Distric 15:30-0 t [address] [place] [address] ([id number]) ALT [Catalytic 22 U/L Invalid 6-45 U/L Hospita activity/Vol] Interpreta l 019 tion Code Distric 15:30-0 t [address] [place] [address] ([id number]) Anion gap 14 mmol/L Invalid 6-14 Hospita 12-15-2 [Moles/Vol] Interpreta l 019 tion Code Distric 15:30-0 t [address] [place] [address] ([id number]) AST [Catalytic 16 U/L Invalid 2-40 U/L Hospita activity/Vol] Interpreta l 019 tion Code Distric 15:30-0 t [address] [place] [address] ([id number]) Basophils (Bld) 0.0 10*3/uL Invalid 0.0-0.2 Hospita 12-15 -2 [#/Vol] Interpreta K/uL l 019 tion Code Distric 15:30-0 [address] [place] [address] ([id number]) Basophils/100 WBC 0.30 % Invalid 0.00-2.50 Hospita 12-15 -2 (Bld) Interpreta % l 019 tion Code Distric 15:30-0 t [address] [place] [address] ([id number]) Bilirubin [Mass/Vol] 0.3 mg/dL Invalid 0.2-1.2 Hospita -2 Interpreta mg/dL l 019 tion Code Distric 15:30-0 t [address] [place] [address] ([id number]) Calcium [Mass/Vol] 9.4 mg/dL Invalid 8.3-10.4 Hospita 06-1 3-2 Interpreta mg/dL l 019 tion Code Distric 15:30-0 t [address] [place] [address] ([id number]) Chloride [Moles/Vol] 95 mmol/L Invalid 95-114 Hospita 06 -13-2 Interpreta mmol/L l 019 tion Code Distric 15:30-0 t [address] [place] [address] ([id number]) Creatinine 0.90 mg/dL Invalid 0.50-1.50 Hospita 06-13-2 [Mass/Vol] Interpreta mg/dL l 019 tion Code Distric 15:30-0 t [address] [place] [address] ([id number]) CRP [Mass/Vol] 0.19 Invalid 0.00-0.50 Hospita 13-2 Interpreta mg/dL l 019 tion Code Distric 15:30-0 [address] [place] [address] ([id number]) Eosinophils (Bld) 1.3 10*3/uL High 0.0-0.7 Hospita -2 [#/Vol] K/uL l 019 Distric 15:30-0 t [address] [place] [address] ([id number]) Eosinophils/100 WBC 12.2 % High 0.0-7.0 % Hospita -2 (Bld) l 019 Distric 15:30-0 [address] [place] [address] ([id number]) Erythrocyte 13.2 % Invalid 11.6-14.8 Hospita 13-2 distribution width Interpreta % l 019 (RBC) [Ratio] tion Code Distric 15:30-0 t [address] [place] [address] ([id number]) GFR/1.73 sq 86 mL/min/{1.73_m2} Invalid >59 Hospita 0 6-13-2 M.predicted MDRD Interpreta mL/min/1.7 l 019 (S/P/Bld) [Vol tion Code 3m2 Distric 15:30-0 rate/Area] t [address] [place] [address] ([id number]) Globulin (S) 2.4 g/dL Invalid 2.3-3.5 Hospita 06-13-2 [Mass/Vol] Interpreta g/dL l 019 tion Code Distric 15:30-0 t [address] [place] [address] ([id number]) Glucose [Mass/Vol] 136 mg/dL High 70-110 Hospita 06- 3-2 mg/dL l 019 Distric 15:30-0 t [address] [place] [address] () HCO3 (P) [Moles/Vol] 27 Invalid 22-33 Hospita -2 Interpreta mEq/L l 019 tion Code Distric 15:30-0 t [address] [place] [address] () Hematocrit (Bld) 43.5 % Invalid 42.0-52.0 Hospita [Volume fraction] Interpreta % l 019 tion Code Distric 15:30-0 t [address] [place] [address] () Hemoglobin (Bld) 15.0 g/dL Invalid 14.0-17.0 Hospita [Mass/Vol] Interpreta g/dL l 019 tion Code Distric 15:30-0 [address] [place] [address] () Lymphocytes (Bld) 1.85 10*3/uL Invalid 0.60-3.40 Hospita 2 [#/Vol] Interpreta K/uL l 019 tion Code Distric 15:30-0 t [address] [place] [address] () Lymphocytes/100 WBC 17.0 % Invalid 10.0-50.0 Hospita 2 (Bld) Interpreta % l 019 tion Code Distric 15:30-0 [address] [place] [address] ([id number]) MCH (RBC) [Entitic 29.8 pg Invalid 27.0-31.2 Hospita -1 3-2 mass] Interpreta pg l 019 tion Code Distric 15:30-0 [address] [place] [address] ([id number]) MCHC (RBC) 34.5 g/dL Invalid 32.0-36.0 Hospita 12-15-2 [Mass/Vol] Interpreta g/dL l 019 tion Code Distric 15:30-0 [address] [place] [address] ([id number]) MCV (RBC) [Entitic 86.3 fL Invalid 80.0-97.0 Hospita 06-1 3-2 vol] Interpreta fL l 019 tion Code Distric 15:30-0 [address] [place] [address] ([id number]) Monocytes (Bld) 1.0 10*3/uL High 0.0-0.9 Hospita 12-15 -2 [#/Vol] K/uL l 019 Distric 15:30-0 [address] [place] [address] ([id number]) Monocytes/100 WBC 9.3 % Invalid 0.0-12.0 % Hospita 06-1 3-2 (Bld) Interpreta l 019 tion Code Distric 15:30-0 [address] [place] [address] ([id number]) Neutrophils (Bld) 6.65 10*3/uL Invalid 2.00-6.90 Hospita -2 [#/Vol] Interpreta K/uL l 019 tion Code Distric 15:30-0 t [address] [place] [address] ([id number]) Neutrophils/100 WBC 61.2 % Invalid 37.0-80.0 Hospita -2 (Bld) Interpreta % l 019 tion Code Distric 15:30-0 [address] [place] [address] ([id number]) Osmolality Calc 276 Low 280-295 Hospita [Osmolality] l 019 Distric 15:30-0 t [address] [place] [address] ([id number]) Platelet mean volume 9.1 fL Invalid 7.4-10.0 Hospita -2 (Bld) [Entitic vol] Interpreta fL l 019 tion Code Distric 15:30-0 [address] [place] [address] ([id number]) Platelets (Bld) 212 10*3/uL Invalid 150-400 Hospita 12-152 [#/Vol] Interpreta K/uL l 019 tion Code Distric 15:30-0 [address] [place] [address] ([id number]) Potassium 3.4 mmol/L Low 3.5-5.3 Hospita 13-2 [Moles/Vol] mmol/L l 019 Distric 15:30-0 t [address] [place] [address] ([id number]) Protein [Mass/Vol] 6.3 g/dL Invalid 6.0-8.3 Hospita 06-1 3-2 Interpreta g/dL l 019 tion Code Distric 15:30-0 [address] [place] [address] ([id number]) RBC (Bld) [#/Vol] 5.04 10*6/uL Invalid 4.20-5.40 Hospita Interpreta M/uL l 019 tion Code Distric 15:30-0 t #1 of 400 [facility] ([id number]) Sodium [Moles/Vol] 133 mmol/L Low 134-148 Hospita mmol/L l 019 Distric 15:30-0 t #1 of 400 [facility] ([id number]) Urea nitrogen 9 mg/dL Invalid 5-25 mg/dL Hospita [Mass/Vol] Interpreta l 019 tion Code Distric 15:30-0 t #1 of 400 [facility] ([id number]) WBC (Bld) [#/Vol] 10.87 10*3/uL High 5.00-10.00 Hospita K/uL l 019 Distric 15:30-0 [address] [place] [address] ([id number]) laboratory on 2018-11-21 Metanephrine (24H U) 157 Invalid 45-290 [facility] 05 -20-2 [Mass/Time] Interpreta ug/24 hr ([id number]) 019 tion Code 18:26-0 400 Metanephrines (24H 131 Invalid Undefined [facility] 05-2 0-2 U) [Mass/Vol] Interpreta ug/L ([id number]) 019 tion Code 18:26-0 400 Normetanephrine (24H 440 Invalid 82-500 [facility] 05 -20-2 U) [Mass/Time] Interpreta ug/24 hr ([id number]) 019 tion Code 18:26-0 400 Normetanephrine (24H 367 Invalid Undefined [facility] 05 -20-2 U) [Mass/Vol] Interpreta ug/L ([id number]) 019 tion Code 18:26-0 400 not yet categorized on 2018-11-15 CULTURE SOURCE Left Arm Hospita l 019 Distric 17:47-0 t [address] [place] [address] ([id number]) CULTURE SOURCE Right Arm Hospita l 019 Distric 17:47-0 t [address] [place] [address] ([id number]) FINAL CULTURE Negative Hospita RESULTS l 019 Distric 17:47-0 t [address] [place] [address] ([id number]) MEDIA PLATED Blood Culture Media Position A13 Hospita 11-15-2 l 019 Distric 17:47-0 t [address] [place] [address] ([id number]) MEDIA PLATED Blood Culture Media Position C45 Hospita 11-15-2 l 019 Distric 17:47-0 t [address] [place] [address] ([id number]) METANEPHRINE, U,24HR 157 Invalid 45-290 Hospita -2 Interpreta UG/24 HR l 019 tion Code Distric 15:04-0 t [address] [place] [address] ([id number]) METANEPHRINE, UR 131 Invalid UNDEFINED Hospita 11-15- 2 Interpreta UG/L l 019 tion Code Distric 15:04-0 t [address] [place] [address] ([id number]) NORMETANEPHR.,U,24H 440 Invalid 82-500 Hospita -2 Interpreta UG/24 HR l 019 tion Code Distric 15:04-0 t [address] [place] [address] ([id number]) NORMETANEPHRINE, UR 367 Invalid UNDEFINED Hospita -2 Interpreta UG/L l 019 tion Code Distric 15:04-0 t [address] [place] [address] ([id number]) PRELIM CULTURE Negative Hospita RESULTS l 019 Distric 17:47-0 [address] [place] [address] ([id number]) laboratory on 2018-06-28 Albumin BCG dye 4.0 Invalid 3.6-5.1 Hospita 06-28-2 [Mass/Vol] Interpreta g/dL l 018 tion Code Distric 15:15-0 t [address] [place] [address] ([id number]) ALP [Catalytic 90 U/L Invalid 35-130 U/L Hospita 06-28-2 activity/Vol] Interpreta l 018 tion Code Distric 15:15-0 t [address] [place] [address] ([id number]) ALT [Catalytic 40 U/L Invalid 6-45 U/L Hospita 06-28-2 activity/Vol] Interpreta l 018 tion Code Distric 15:15-0 t [address] [place] [address] ([id number]) Amylase [Catalytic 25 U/L Invalid 20-100 U/L Hospita -2 activity/Vol] Interpreta l 018 tion Code Distric 15:15-0 t #1 of [address] [facility] ([id number]) Anion gap 17 mmol/L High 6-14 Hospita 06-28-2 [Moles/Vol] l 018 Distric 15:15-0 t #1 of [address] [facility] ([id number]) AST [Catalytic 26 U/L Invalid 2-40 U/L Hospita 06-28-2 activity/Vol] Interpreta l 018 tion Code Distric 15:15-0 t #1 of 500 [facility] ([id number]) Basophils (Bld) 0.0 10*3/uL Invalid 0.0-0.2 Hospita 06-28 -2 [#/Vol] Interpreta K/uL l 018 tion Code Distric 15:15-0 t #1 of 500 [facility] ([id number]) Basophils/100 WBC 0.20 % Invalid 0.00-2.50 Hospita 06-28 -2 (Bld) Interpreta % l 018 tion Code Distric 15:15-0 t [address] [place] [address] ([id number]) Bilirubin [Mass/Vol] 0.4 mg/dL Invalid 0.2-1.2 Hospita -2 Interpreta mg/dL l 018 tion Code Distric 15:15-0 t [address] [place] [address] ([id number]) Calcium [Mass/Vol] 9.5 mg/dL Invalid 8.3-10.4 Hospita 12-2 5-2 Interpreta mg/dL l 018 tion Code Distric 15:15-0 t #1 of 500 [facility] ([id number]) Chloride [Moles/Vol] 88 mmol/L Low 95-114 Hospita 25-2 mmol/L l 018 Distric 15:15-0 t #1 of 500 [facility] ([id number]) Creatinine 0.91 mg/dL Invalid 0.50-1.50 Hospita 25-2 [Mass/Vol] Interpreta mg/dL l 018 tion Code Distric 15:15-0 t [address] [place] [address] ([id number]) Eosinophils (Bld) 0.0 10*3/uL Invalid 0.0-0.7 Hospita 25-2 [#/Vol] Interpreta K/uL l 018 tion Code Distric 15:15-0 t [address] [place] [address] ([id number]) Eosinophils/100 WBC 0.3 % Invalid 0.0-7.0 % Hospita -2 (Bld) Interpreta l 018 tion Code Distric 15:15-0 t #1 of 500 [facility] () Erythrocyte 12.6 % Invalid 11.6-14.8 Hospita 06-28-2 distribution width Interpreta % l 018 (RBC) [Ratio] tion Code Distric 15:15-0 t #1 of 500 [facility] () GFR/1.73 sq 85 mL/min/{1.73_m2} Invalid >59 Hospita 1 2-25-2 M.predicted MDRD Interpreta mL/min/1.7 l 018 (S/P/Bld) [Vol tion Code 3m2 Distric 15:15-0 rate/Area] t #1 of 500 [facility] () Globulin (S) 3.5 g/dL Invalid 2.3-3.5 Hospita 25-2 [Mass/Vol] Interpreta g/dL l 018 tion Code Distric 15:15-0 t [address] [place] [address] ([id number]) Glucose [Mass/Vol] 143 mg/dL High 70-110 Hospita 12-2 5-2 mg/dL l 018 Distric 15:15-0 t [address] [place] [address] ([id number]) HCO3 (P) [Moles/Vol] 30 Invalid 22-33 Hospita -2 Interpreta mEq/L l 018 tion Code Distric 15:15-0 t #1 of 500 [facility] ([id number]) Hematocrit (Bld) 37.4 % Low 42.0-52.0 Hospita 25- 2 [Volume fraction] % l 018 Distric 15:15-0 t #1 of 500 [facility] ([id number]) Hemoglobin (Bld) 13.1 g/dL Low 14.0-17.0 Hospita 12-25- 2 [Mass/Vol] g/dL l 018 Distric 15:15-0 t #1 of 500 [facility] ([id number]) Lipase [Catalytic 17 U/L Invalid 7-59 U/L Hospita 06-28 -2 activity/Vol] Interpreta l 018 tion Code Distric 15:15-0 t #1 of 500 [facility] ([id number]) Lymphocytes (Bld) 1.06 10*3/uL Invalid 0.60-3.40 Hospita [#/Vol] Interpreta K/uL l 018 tion Code Distric 15:15-0 t #1 of 500 [facility] ([id number]) Lymphocytes/100 WBC 8.9 % Low 10.0-50.0 Hospita (Bld) % l 018 Distric 15:15-0 t #1 of 500 [facility] () MCH (RBC) [Entitic 30.7 pg Invalid 27.0-31.2 [facility] 08 09- mass] Interpreta pg l 018 tion Code Distric 15:15-0 t #1 of 500 [facility] () MCHC (RBC) 35.0 g/dL Invalid 32.0-36.0 [facility] [[facility]] Interpreta g/dL l 018 tion Code Distric 15:15-0 t #1 of 500 [facility] ([id number]) MCV (RBC) [Entitic 87.6 fL Invalid 80.0-97.0 [facility] 06-05 5-2 vol] Interpreta fL l 018 tion Code Distric 15:15-0 t #1 of 500 [facility] ([id number]) Monocytes (Bld) 1.0 10*3/uL High 0.0-0.9 [facility] 06-28 [#/Vol] K/uL l 018 Distric 15:15-0 t #1 of 500 [facility] ([id number]) Monocytes/100 WBC 8.2 % Invalid 0.0-12.0 % [facility] 11-03 (Bld) Interpreta l 018 tion Code Distric 15:15-0 t #1 of 500 [facility] ([id number]) Neutrophils (Bld) 9.81 10*3/uL High 2.00-6.90 Hospita [#/Vol] K/uL l 018 Distric 15:15-0 t #1 of 500 [facility] (23699) Neutrophils/100 WBC 82.4 % High 37.0-80.0 [facility] ([facility] % l 018 Distric 15:15-0 t #1 of 500 [facility] ([id number]) Osmolality Calc 273 Low 280-295 Hospita 06-28-2 [Osmolality] l 018 Distric 15:15-0 t #1 of 500 [facility] ([id number]) Platelet mean volume 8.1 fL Invalid 7.4-10.0 Hospita -2 (Bld) [Entitic vol] Interpreta fL l 018 tion Code Distric 15:15-0 t #1 of 500 [facility] ([id number]) Platelets (Bld) 427 10*3/uL High 150-400 Hospita 06-28 [#/Vol] K/uL l 018 Distric 15:15-0 t #1 of 500 [facility] ([id number]) Potassium 3.1 Result Verified by Repeat Analysis Low 3.5-5. 3 Hospita 06-28-2 [Moles/Vol] mmol/L l 018 Distric 15:15-0 t #1 of 500 [facility] ([id number]) Protein [Mass/Vol] 7.5 g/dL Invalid 6.0-8.3 Hospita 12-2 5-2 Interpreta g/dL l 018 tion Code Distric 15:15-0 t #1 of 500 [facility] ([id number]) RBC (Bld) [#/Vol] 4.27 10*6/uL Invalid 4.20-5.40 Hospita -2 Interpreta M/uL l 018 tion Code Distric 15:15-0 t #1 of 500 [facility] ([id number]) Sodium [Moles/Vol] 132 mmol/L Low 134-148 Hospita -2 mmol/L l 018 Distric 15:15-0 t [address] [place] [address] ([id number]) Urea nitrogen 5 mg/dL Invalid 5-25 mg/dL Hospita 06-28-2 [Mass/Vol] Interpreta l 018 tion Code Distric 15:15-0 t [address] [place] [address] ([id number]) WBC (Bld) [#/Vol] 11.90 10*3/uL High 5.00-10.00 Hospita 25-2 K/uL l 018 Distric 15:15-0 t [address] [place] [address] () not yet categorized on 2018-03-10 Holter monitor study 48 Hour Complete Invalid Hospita Interpreta l 018 tion Code Distric 10:22-0 t [address] [place] [address] ([id number]) not yet categorized on 2018-02-17 Urine Volume Urine Volume Sufficient (10mL) Invalid Hospita Interpreta l 018 tion Code Distric 15:42-0 t [address] [place] [address] ([id number]) Culture to follow Abnormal Hospita l 018 Distric 15:42-0 t [address] [place] [address] ([id number]) laboratory on 2018-02-17 Bacteria LM Ql 1+ Abnormal Hospita (Urine sed) l 018 Distric 15:42-0 t [address] [place] [address] ([id number]) Bilirubin Confirm Ql N/A Abnormal Negative Hospita (U) l 018 Distric 15:42-0 t [address] [place] [address] ([id number]) Bilirubin Ql (U) Negative Invalid Negative [facility] Interpreta l 018 tion Code Distric 15:42-0 t [address] [place] [address] ([id number]) Clarity (U) Clear Invalid Clear [facility] Interpreta l 018 tion Code Distric 15:42-0 t [address] [place] [address] ([id number]) Color (U) Yellow Invalid Colorless- Hospita Interpreta Lt. Yellow l 018 tion Code Distric 15:42-0 t [address] [place] [address] ([id number]) Epithelial 0-5/HPF Abnormal [facility] cells.squamous l 018 LM.HPF (Urine sed) Distric 15:42-0 [#/Area] t [address] [place] [address] ([id number]) Glucose Test strip Negative Invalid Negative Hospita - 6-2 (U) [Mass/Vol] Interpreta l 018 tion Code Distric 15:42-0 t [address] [place] [address] (74562) Hemoglobin Ql (U) Negative Invalid Negative Hospita 02-17 Interpreta l 018 tion Code Distric 15:42-0 t [address] [place] [address] (41593) Ketones (U) Negative Invalid Negative [facility]ospita 02-17- [Mass/Vol] Interpreta l 018 tion Code Distric 15:42-0 t [address] [place] [address] ([id number]) Leukocyte esterase Negative Invalid Negative [facility] 08 6-2 Test strip Ql (U) Interpreta l 018 tion Code Distric 15:42-0 t [address] [place] [address] ([id number]) Mucus Ql (Urine sed) 1+ Abnormal Hospita 02-17 l 018 Distric 15:42-0 t [address] [place] [address] ([id number]) Nitrite Ql (U) Negative Invalid Negative [facility]ospita Interpreta l 018 tion Code Distric 15:42-0 t [address] [place] [address] (36806) pH (U) 6.0 [pH] Invalid 5-8.5 Hospita Interpreta l 018 tion Code Distric 15:42-0 [address] [place] [address] ([id number]) Protein (U) Negative Invalid Negative [facility] [Mass/Vol] Interpreta l 018 tion Code Distric 15:42-0 t [address] [place] [address] ([id number]) RBC LM.HPF (Urine 2-5/HPF Abnormal Hospita sed) [#/Area] l 018 Distric 15:42-0 t [address] [place] [address] (61286) Specific gravity (U) 1.025 Invalid 1.000-1.03 Hospita 0 [Rel density] Interpreta 0 l 018 tion Code Distric 15:42-0 t [address] [place] [address] (33801) Urobilinogen Qn (U) [id number] {Anayeli'U}/dL Abnormal 0.2-1.0 Hospita l 018 Distric 15:42-0 t [address] [place] [address] ([id number]) WBC LM.HPF (Urine 2-5/HPF Abnormal Hospita sed) [#/Area] l 018 Distric 15:42-0 t [address] [place] [address] ([id number]) laboratory on 2017-12-16 Bacteria identified Note Invalid [facility] 2 Anaer cx Nom (Unsp Interpreta ([id number]) 018 spec) tion Code 19:12-0 400 laboratory on 2017-06-02 Albumin BCG dye 4.0 Invalid 3.6-5.1 Not [Mass/Vol] Interpreta g/dL Availab 017 tion Code le 12:23-0 (80520) 500 ALP [Catalytic 120 U/L Invalid 35-130 U/L Not activity/Vol] Interpreta Availab 017 tion Code le 12:23-0 (21301) 500 ALT [Catalytic 12 U/L Invalid 6-45 U/L Not activity/Vol] Interpreta Availab 017 tion Code le 12:23-0 (47124) 500 Anion gap 13 mmol/L Invalid 6-14 Not [Moles/Vol] Interpreta Availab 017 tion Code le 12:23-0 (58158) 500 AST [Catalytic 13 U/L Invalid 2-40 U/L Not activity/Vol] Interpreta Availab 017 tion Code le 12:230 (57010) 500 Basophils (Bld) 0.0 10*3/uL Invalid 0.0-0.2 [#/Vol] Interpreta K/uL 017 tion Code 11: 500 Basophils/100 WBC 0.20 % Invalid 0.00-2.50 (Bld) Interpreta % 017 tion Code 11:-0 500 Bilirubin [Mass/Vol] 0.2 mg/dL Invalid 0.2-1.2 Not Interpreta mg/dL Availab 017 tion Code le 12:23-0 (28152) 500 Calcium [Mass/Vol] 9.0 mg/dL Invalid 8.3-10.4 Not 05-06 9-2 Interpreta mg/dL Availab 017 tion Code le 12:0 (10951) 500 Chloride [Moles/Vol] 105 mmol/L Invalid 95-114 Not 1 Interpreta mmol/L Availab 017 tion Code le 12:23-0 (36007) 500 Creatinine 0.78 mg/dL Invalid 0.50-1.50 Not [Mass/Vol] Interpreta mg/dL Availab 017 tion Code le 12:23-0 (56505) 500 Eosinophils (Bld) 0.2 10*3/uL Invalid 0.0-0.7 [#/Vol] Interpreta K/uL 017 tion Code 11:23-0 500 Eosinophils/100 WBC 2.4 % Invalid 0.0-7.0 % (Bld) Interpreta 017 tion Code 11:23-0 500 Erythrocyte 13.8 % Invalid 11.6-14.8 distribution width Interpreta % 017 (RBC) [Ratio] tion Code 11:23-0 500 GFR/1.73 sq 102 mL/min/{1.73_m2} Invalid >59 Not M.predicted MDRD Interpreta mL/min/1.7 Availab 017 (S/P/Bld) [Vol tion Code 3m2 le 12:23-0 rate/Area] (02869) 500 Globulin (S) 3.1 g/dL Invalid 2.3-3.5 Not [Mass/Vol] Interpreta g/dL Availab 017 tion Code le 12:23-0 (94743) 500 Glucose [Mass/Vol] 116 mg/dL High 70-110 Not 05-06 9-2 mg/dL Availab 017 le 12:23-0 (50765) 500 HCO3 (P) [Moles/Vol] 30 Invalid 22-33 Not Interpreta mEq/L Availab 017 tion Code le 12:23-0 (90390) 500 Hematocrit (Bld) 45.3 % Invalid 42.0-52.0 [Volume fraction] Interpreta % 017 tion Code 11:23-0 500 Hemoglobin (Bld) 14.9 g/dL Invalid 14.0-17.0 [Mass/Vol] Interpreta g/dL 017 tion Code 11:23-0 500 Lipase [Catalytic 8 U/L Invalid 7-59 U/L Not 06-02 activity/Vol] Interpreta Availab 017 tion Code le 12:23-0 (38342) 500 Lymphocytes (Bld) 1.69 10*3/uL Invalid 0.60-3.40 [#/Vol] Interpreta K/uL 017 tion Code 11:23-0 500 Lymphocytes/100 WBC 19.5 % Invalid 10.0-50.0 (Bld) Interpreta % 017 tion Code 11:23-0 500 MCH (RBC) [Entitic 29.4 pg Invalid 27.0-31.2 mass] Interpreta pg 017 tion Code 11:23-0 500 MCHC (RBC) 32.9 g/dL Invalid 32.0-36.0 [Mass/Vol] Interpreta g/dL 017 tion Code 11:23-0 500 MCV (RBC) [Entitic 89.5 fL Invalid 80.0-97.0 vol] Interpreta fL 017 tion Code 11:23-0 500 Monocytes (Bld) 1.2 10*3/uL High 0.0-0.9 [#/Vol] K/uL 017 11:23-0 500 Monocytes/100 WBC 13.7 % High 0.0-12.0 % (Bld) 017 11:23-0 500 Neutrophils (Bld) 5.55 10*3/uL Invalid 2.00-6.90 [#/Vol] Interpreta K/uL 017 tion Code 11:23-0 500 Neutrophils/100 WBC 64.2 % Invalid 37.0-80.0 (Bld) Interpreta % 017 tion Code 11:23-0 500 Osmolality Calc 296 High 280-295 Not [Osmolality] Availab 017 le 12:23-0 (68783) 500 Platelet mean volume 9.3 fL Invalid 7.4-10.0 06-02 (Bld) [Entitic vol] Interpreta fL 017 tion Code 11:23-0 500 Platelets (Bld) 281 10*3/uL Invalid 150-400 [#/Vol] Interpreta K/uL 017 tion Code 11:23-0 500 Potassium 4.0 mmol/L Invalid 3.5-5.3 Not [Moles/Vol] Interpreta mmol/L Availab 017 tion Code le 12:23-0 (93025) 500 Protein [Mass/Vol] 7.1 g/dL Invalid 6.0-8.3 Not 05-06 9-2 Interpreta g/dL Availab 017 tion Code le 12:23-0 (32568) 500 RBC (Bld) [#/Vol] 5.06 10*6/uL Invalid 4.20-5.40 Interpreta M/uL 017 tion Code 11:-0 500 Sodium [Moles/Vol] 144 mmol/L Invalid 134-148 Not Interpreta mmol/L Availab 017 tion Code le 12: () 500 TSH Qn 0.89 Invalid 0.32-5.00 Not Interpreta mIU/mL Availab 017 tion Code le 12: (23907) 500 Urea nitrogen 8 mg/dL Invalid 5-25 mg/dL Not [Mass/Vol] Interpreta Availab 017 tion Code le 12: (77089) 500 WBC (Bld) [#/Vol] 8.66 10*3/uL Invalid 5.00-10.00 Interpreta K/uL 017 tion Code 11: 500 laboratory on 2017-03-28 Albumin BCG dye 3.4 Low 3.6-5.1 Not [Mass/Vol] g/dL Availab 017 le 06:250 (10412) 400 ALP [Catalytic 84 U/L Invalid 35-130 U/L Not activity/Vol] Interpreta Availab 017 tion Code le 06:0 (24321) 400 ALT [Catalytic 20 U/L Invalid 6-45 U/L Not activity/Vol] Interpreta Availab 017 tion Code le 06:250 (26791) 400 Anion gap 15 mmol/L High 6-14 Not [Moles/Vol] Availab 017 le 06:25-0 (30071) 400 AST [Catalytic 14 U/L Invalid 2-40 U/L Not activity/Vol] Interpreta Availab 017 tion Code le 06:25-0 (57712) 400 Basophils (Bld) 0.0 10*3/uL Invalid 0.0-0.2 Not 03-28 [#/Vol] Interpreta K/uL Availab 017 tion Code le 06:250 (55942) 400 Basophils/100 WBC 0.20 % Invalid 0.00-2.50 Not 03-28 (Bld) Interpreta % Availab 017 tion Code le 06:25-0 (09068) 400 Bilirubin [Mass/Vol] 0.4 mg/dL Invalid 0.2-1.2 Not Interpreta mg/dL Availab 017 tion Code le 06:25-0 (21551) 400 Calcium [Mass/Vol] 8.7 mg/dL Invalid 8.3-10.4 Not 03-06 4-2 Interpreta mg/dL Availab 017 tion Code le 06:25-0 (34066) 400 Chloride [Moles/Vol] 107 mmol/L Invalid 95-114 Not 0 Interpreta mmol/L Availab 017 tion Code le 06:25-0 (31173) 400 Creatinine 0.80 mg/dL Invalid 0.50-1.50 Not [Mass/Vol] Interpreta mg/dL Availab 017 tion Code le 06:25-0 (15332) 400 Eosinophils (Bld) 0.1 10*3/uL Invalid 0.0-0.7 Not [#/Vol] Interpreta K/uL Availab 017 tion Code le 06:25-0 (30551) 400 Eosinophils/100 WBC 1.5 % Invalid 0.0-7.0 % Not (Bld) Interpreta Availab 017 tion Code le 06:25-0 (13486) 400 Erythrocyte 13.0 % Invalid 11.6-14.8 Not distribution width Interpreta % Availab 017 (RBC) [Ratio] tion Code le 06:25-0 (27082) 400 GFR/1.73 sq 99 mL/min/{1.73_m2} Invalid >59 Not 0 M.predicted MDRD Interpreta mL/min/1.7 Avail[facility] 017 (S/P/Bld) [Vol tion Code 3m2 le 06:25-0 rate/Area] (62221) 400 Globulin (S) 3.0 g/dL Invalid 2.3-3.5 Not [Mass/Vol] Interpreta g/dL Availab 017 tion Code le 06:25-0 (08199) 400 Glucose [Mass/Vol] 108 mg/dL Invalid 70-110 Not 09-2 4-2 Interpreta mg/dL Availab 017 tion Code le 06:25-0 (25986) 400 HCO3 (P) [Moles/Vol] 19 Low 22-33 Not 24-2 mEq/L Availab 017 le 06:25-0 (49755) 400 Hematocrit (Bld) 31.0 % Low 42.0-52.0 Not 03-28- 2 [Volume fraction] % Availab 017 le 06:25-0 (49732) 400 Hemoglobin (Bld) 10.3 g/dL Low 14.0-17.0 Not 24- 2 [Mass/Vol] g/dL Availab 017 le 06:25-0 (35718) 400 Lymphocytes (Bld) 0.95 10*3/uL Invalid 0.60-3.40 Not -2 [#/Vol] Interpreta K/uL Availab 017 tion Code le 06:25-0 (94878) 400 Lymphocytes/100 WBC 11.1 % Invalid 10.0-50.0 Not -2 (Bld) Interpreta % Availab 017 tion Code le 06:25-0 (03091) 400 MCH (RBC) [Entitic 29.6 pg Invalid 27.0-31.2 Not 09-2 4-2 mass] Interpreta pg Availab 017 tion Code le 06:25-0 (60247) 400 MCHC (RBC) 33.2 g/dL Invalid 32.0-36.0 Not 24-2 [Mass/Vol] Interpreta g/dL Availab 017 tion Code le 06:25-0 (69964) 400 MCV (RBC) [Entitic 89.1 fL Invalid 80.0-97.0 Not 09-2 4-2 vol] Interpreta fL Availab 017 tion Code le 06:25-0 (94078) 400 Monocytes (Bld) 0.8 10*3/uL Invalid 0.0-0.9 Not 24 -2 [#/Vol] Interpreta K/uL Availab 017 tion Code le 06:25-0 (93543) 400 Monocytes/100 WBC 9.2 % Invalid 0.0-12.0 % Not -2 4-2 (Bld) Interpreta Availab 017 tion Code le 06:25-0 (87645) 400 Neutrophils (Bld) 6.69 10*3/uL Invalid 2.00-6.90 Not [#/Vol] Interpreta K/uL Availab 017 tion Code le 06:25-0 (56163) 400 Neutrophils/100 WBC 78.0 % Invalid 37.0-80.0 Not (Bld) Interpreta % Availab 017 tion Code le 06:25-0 (66460) 400 Osmolality Calc 281 Invalid 280-295 Not [Osmolality] Interpreta Availab 017 tion Code le 06:25-0 (06509) 400 Platelet mean volume 7.9 fL Invalid 7.4-10.0 Not (Bld) [Entitic vol] Interpreta fL Availab 017 tion Code le 06:25-0 (15634) 400 Platelets (Bld) 493 10*3/uL High 150-400 Not 03-28 [#/Vol] K/uL Availab 017 le 06:25-0 (68588) 400 Potassium 4.1 mmol/L Invalid 3.5-5.3 Not [Moles/Vol] Interpreta mmol/L Availab 017 tion Code le 06:25-0 (74500) 400 Protein [Mass/Vol] 6.4 g/dL Invalid 6.0-8.3 Not 03-06 4-2 Interpreta g/dL Availab 017 tion Code le 06:25-0 (69712) 400 RBC (Bld) [#/Vol] 3.48 10*6/uL Low 4.20-5.40 Not M/uL Availab 017 le 06:25-0 (39227) 400 Sodium [Moles/Vol] 137 mmol/L Invalid 134-148 Not Interpreta mmol/L Availab 017 tion Code le 06:25-0 (25656) 400 Urea nitrogen 6 mg/dL Invalid 5-25 mg/dL Not [Mass/Vol] Interpreta Availab 017 tion Code le 06:25-0 (83921) 400 WBC (Bld) [#/Vol] 8.58 10*3/uL Invalid 5.00-10.00 Not 0 03-28- Interpreta K/uL Availab 017 tion Code le 06:25-0 (30992) 400 laboratory on 2017-03-27 Basophils (Bld) 0.0 10*3/uL Invalid 0.0-0.2 Not 03-27 [#/Vol] Interpreta K/uL Availab 017 tion Code le 08:00-0 (33488) 400 Basophils/100 WBC 0.30 % Invalid 0.00-2.50 Not 03-27 (Bld) Interpreta % Availab 017 tion Code le 08:00-0 (69846) 400 Eosinophils (Bld) 0.2 10*3/uL Invalid 0.0-0.7 Not [#/Vol] Interpreta K/uL Availab 017 tion Code le 08:00-0 (99545) 400 Eosinophils/100 WBC 2.6 % Invalid 0.0-7.0 % Not (Bld) Interpreta Availab 017 tion Code le 08:00-0 (73395) 400 Erythrocyte 12.9 % Invalid 11.6-14.8 Not distribution width Interpreta % Availab 017 (RBC) [Ratio] tion Code le 08:00-0 (31614) 400 Hematocrit (Bld) 29.7 % Low 42.0-52.0 Not [Volume fraction] % Availab 017 le 08:00-0 (01321) 400 Hemoglobin (Bld) 9.4 g/dL Low 14.0-17.0 Not [Mass/Vol] g/dL Availab 017 le 08:00-0 (35369) 400 Lactate [Mass/Vol] 7.4 Invalid 4.5-19.8 Not 03-06 3-2 Interpreta mg/dL Availab 017 tion Code le 08:00-0 (42510) 400 Lymphocytes (Bld) 1.10 10*3/uL Invalid 0.60-3.40 Not [#/Vol] Interpreta K/uL Availab 017 tion Code le 08:00-0 (84365) 400 Lymphocytes/100 WBC 14.4 % Invalid 10.0-50.0 Not (Bld) Interpreta % Availab 017 tion Code le 08:00-0 (59368) 400 MCH (RBC) [Entitic 29.1 pg Invalid 27.0-31.2 Not 03-06 3-2 mass] Interpreta pg Availab 017 tion Code le 08:00-0 (06577) 400 MCHC (RBC) 31.6 g/dL Low 32.0-36.0 Not [Mass/Vol] g/dL Availab 017 le 08:00-0 (14929) 400 MCV (RBC) [Entitic 92.0 fL Invalid 80.0-97.0 Not 03-06 3-2 vol] Interpreta fL Availab 017 tion Code le 08:00-0 (33435) 400 Monocytes (Bld) 0.8 10*3/uL Invalid 0.0-0.9 Not 03-27 [#/Vol] Interpreta K/uL Availab 017 tion Code le 08:00-0 (57493) 400 Monocytes/100 WBC 11.0 % Invalid 0.0-12.0 % Not 03-06-2 (Bld) Interpreta Availab 017 tion Code le 08:00-0 (99928) 400 Neutrophils (Bld) 5.50 10*3/uL Invalid 2.00-6.90 Not [#/Vol] Interpreta K/uL Availab 017 tion Code le 08:00-0 (85960) 400 Neutrophils/100 WBC 71.7 % Invalid 37.0-80.0 Not (Bld) Interpreta % Availab 017 tion Code le 08:00-0 (49883) 400 Platelet mean volume 8.0 fL Invalid 7.4-10.0 Not (Bld) [Entitic vol] Interpreta fL Availab 017 tion Code le 08:00-0 (53489) 400 Platelets (Bld) 484 10*3/uL High 150-400 Not 03-27 [#/Vol] K/uL Availab 017 le 08:00-0 (36931) 400 RBC (Bld) [#/Vol] 3.23 10*6/uL Low 4.20-5.40 Not 09 -23-2 M/uL Availab 017 le 08:00-0 (94425) 400 WBC (Bld) [#/Vol] 7.66 10*3/uL Invalid 5.00-10.00 Not 0 Interpreta K/uL Availab 017 tion Code le 08:00-0 (70182) 400 not yet categorized on 2017-03-26 CULTURE SOURCE SECOND BLOOD SITE Invalid Not 03-26 Interpreta Avail[facility] 017 tion Code le 22:36-0 (13738) 400 FINAL CULTURE Negative Invalid Not RESULTS Interpreta [facility]ail[facility] 017 tion Code le 22:36-0 (76049) 400 MEDIA PLATED Blood Culture Media Position A13 Invalid Not Interpreta Avail[facility] 017 tion Code le 22:36-0 (28140) 400 PRELIM CULTURE Negative Invalid Not RESULTS Interpreta Avail[facility] 017 tion Code le 22:36-0 (58338) 400 Urine Volume Urine Volume Sufficient (10mL) Invalid Not Interpreta Availab 017 tion Code le 22:36-0 ([id number]) 400 Urine Saved if Culture Needed (48hrs from Abnormal Not time of collection) [facility] 017 le 22:36-0 ([id number]) 400 laboratory on 2017-03-26 Bacteria LM Ql Negative Invalid Not (Urine sed) [facility] tion Code le 22:36-0 ([id number]) 400 Bilirubin Confirm Ql N/A Abnormal Negative Not (U) [facility] 017 le 22:36-0 ([id number]) 400 Bilirubin Ql (U) Negative Invalid Negative Not [facility] tion Code le 22:36-0 ([id number]) 400 Clarity (U) Clear Invalid Clear Not [facility] tion Code le 22:36-0 ([id number]) 400 Color (U) Yellow Invalid Colorless- Not Interpreta Lt. Yellow [facility] tion Code le 22:36-0 ([id number]) 400 Glucose Test strip Negative Invalid Negative Not 03-06 2-2 (U) [Mass/Vol] [facility] tion Code le 22:36-0 ([id number]) 400 Hemoglobin Ql (U) Negative Invalid Negative Not 03-26 [facility] tion Code le 22:36-0 ([id number]) 400 INR Coag (Platelet 1.3 Invalid 1.0-4.0 Not 03-06 poor plasma or [facility] blood) [Relative tion Code le 22:36-0 time] ([id number]) 400 Ketones (U) Negative Invalid Negative Not [Mass/Vol] [facility] tion Code le 22:36-0 (05655) 400 Leukocyte esterase Negative Invalid Negative Not 03-06 Test strip Ql (U) [facility] tion Code le 22:36-0 (45293) 400 Nitrite Ql (U) Negative Invalid Negative Not [facility] tion Code le 22:36-0 (66976) 400 pH (U) 7.0 [pH] Invalid 5-8.5 Not [facility] tion Code le 22:36-0 ([id number]) 400 Protein (U) Negative Invalid Negative Not [Mass/Vol] [facility] tion Code le 22:36-0 ([id number]) 400 PT Coag (PPP) [Time] 14.8 s High 9.9-12.8 Not Sec [facility] 017 le 22:36-0 ([id number]) 400 RBC LM.HPF (Urine Negative Invalid Not sed) [#/Area] [facility] tion Code le 22:36-0 ([id number]) 400 Specific gravity (U) 1.015 Invalid 1.000-1.03 Not 0 [Rel density] Interpreta 0 [facility]17 tion Code le 22:36-0 (10109) 400 Urobilinogen Qn (U) 0.399996686 {Anayeli'U}/dL Abnormal 0.2-1.0 Not [facility] 017 le 22:36-0 (29745) 400 WBC LM.HPF (Urine Nothing Seen on Microscopic Invalid Not sed) [#/Area] [facility] tion Code le 22:36-0 ([id number]) 400 Yeast.budding Ql No Yeast present Invalid Not 03-06 (Urine sed) [facility] tion Code le 22:36-0 (25630) 400 not yet categorized on 2016-11-20 CULTURE SOURCE VOID Not [facility]17 le 13:17-0 (21757) 400 FINAL CULTURE No Growth 48 hours Invalid Not 11-20 RESULTS [facility] tion Code le 13:17-0 ([id number]) 400 MEDIA PLATED Setup at 12:39 on 11/20/2016 Not [facility] 017 le 13:17-0 ([id number]) 400 PRELIM CULTURE No Growth 24 hours Not RESULTS [facility] le 13:17-0 (86052) 400 Social History No Information Vital Signs Date Time Vital Sign Value Performing Clinician Facil ity 12-08-2019 Body temperature 36.7 NA NA PENDING L OCATION [facility] 12:05-0400 ([id number]) 12-08-2019 SaO2% (BldA) [Mass 97 % NA NA PENDING LOCATION [facility] 12:050400 fraction] ([id number]) 10-16-2013 Body height 175.26 cm [facility] [id number] Other Phone: [facility] ([id number]) 10-16-2013 Body temperature 97.8 [degF] [facility] 10:38-0400 Other Phone: [facility] ([id number]) 10-16-2013 Body weight 84.37 kg [facility] [id number] Other Phone: [facility] ([id number]) 09-07-2013 Body height 175.26 cm Doctor [facility] 12:39-0500 [facility] ([id number]) 09-07-2013 Body weight 84.01 kg [facility] 12:39-0500 [facility] ([id number]) Functional Status The data below is from unstructured sources Query Response Date Berhane rded Comprehension Ability Understands Co ncepts July 24, 2014 1:00pm Mental Status No Information History general Narrative - Reported Note Date & Note Facility Type History general Narrative - Reported Type Medical Major depressive disorder, recurrent, moderate History Medical Other and unspecified hyper lipidemia History Medical Anxiety disorder, unspecifi ed History Medical Generalized anxiety disorde r History Medical Major depressive disorder, single episode, unspecified History Medical Attention deficit disorder of childhood without mention of History hyperactivity Medical Attention deficit hyperacti vity disorder History Medical Pain in joint, lower leg History Medical Essential (primary) hyperte nsion History Medical PTSD History Surgical knee replacement x4 RT knee History Hospitalizatio UTI 12/04/2015 n History [facility] ([id number]) Summary Purpose eClinicalWorks SubmissioneClinicalWorks SubmissioneClinicalWorks SubmissioneClinicalWorks SubmissioneClinicalWorks SubmissioneClinicalWorks SubmissioneClinicalWorks SubmissioneClinicalWorks Submission Advance Directives Directive Response Recor ded Date/Time Advance Directives No 7:00am Health Care Power of Electric Frying Pan Repairer No 07/24/14 7:00am Organ Donor Yes 07/24/14 7:00am Directive Response Recor ded Date/Time Advance Directives No 7:00am Health Care Power of Electric Frying Pan Repairer No 07/24/14 7:00am Organ Donor Yes 07/24/14 7:00am Resuscitation Status Full Code 07/24/14 7:00am Directive Response Recor ded Date/Time Advance Directives No 10:39am Health Care Power of Electric Frying Pan Repairer No 11/24/17 10:39am Organ Donor Yes 11/24/17 10:39am Resuscitation Status Full Code 11/24/17 10:39am Discharge Instructions No hospital discharge instructions. Patient Instructions Physician Instructions New, Converted or Re-Newed RX: RX Given to Pt/Family Patient Instructions See printed TKA instructions Goal/Follow Up Appt.: F/U in tres office 2 1/2 weeks Patient Instructions: see DC instructions WBAT with walker, Walking Assistive Device: Cane, Walker Elevate Extremity: Elevate Above Heart Driving Instructions: No Driving/Refer to Incentive Spirometry: Every 2 Hours While Awake Discharge Diet: No Restrictions Symptoms to Report to Physicia: Extremity Discoloration, Numbness/Tingling, Swelling Increased, Bleeding Excessive, Fever Over 101 Degrees F, Pain/Pressure in Chest If Any Problems/Questions/Issu: Contact Your Physician Infection Signs and Symptoms: Increased Redness, Foul Odor of Wound, Increased Drainage, Increased Swelling, Temperature Above 101 F Bathing Instructions: Shower Operative Area Clean and Dry: You May Remove Bandage Stitches/[place]/Dermabond Dis: Care of [place] Polar Care: Yes-As Instructed No hospital discharge instruction information available. Additional Source Comments This clinical document has been generated using [employer] software that has been certified by the Office of the National Coordinator for Health Information Technology (ONC 15.99.04.3023.Diam.[id number]) and the National [employer] for [employer] (NCQA, as an eMeasure certified technology). FOR RECORDS PERTAINING TO PATIENTS WHO ARE OR HAVE BEEN ENROLLED IN A CHEMICAL D EPENDENCY/SUBSTANCE ABUSE PROGRAM, SOME INFORMATION MAY BE OMITTED. This clinica l summary was aggregated from multiple sources. Caution should be exercised in using it in the provision of clinical care. This summary normalizes information from multiple sources, and as a consequence, information in this document may ma terially change the coding, format and clinical context of patient data. In primo tion, data may be omitted in some cases. CLINICAL DECISIONS SHOULD BE BASED ON T HE PRIMARY CLINICAL RECORDS. [employer] provides no warranty or guara ntee of the accuracy or completeness of information in this document.The followi ng information is based on time limited clinical information UNRECOGNIZED CONTENT PROVIDED BELOW FOR UNRECOGNIZED SECTION REASON FOR VISIT [id number]
--- OUTSIDE RECORDS SUMMARY | 2020-01-12 11:24 | XMS REPORT ---
Author Author Cj PADILLA Organization [facility] [place] Address [address] [place] [address] Care Team Providers Care Beehive Kiln Supervisor Name Role Phone JUAN JOSÉ PADILLA Unavailable PROBLEMS Type Condition ICD9-CM Code MSS02-WO Code Onset Dates Condition S tatus SNOMED Code Problem Pain in joint, lower leg 719.46 Activ e 128023598 Problem Attention deficit disorder o f childhood 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 314.00 Active 03656353 Problem Essential hypertension, benign 401.1 Active 6341471 Problem Anxiety state, unspecified 300.00 Act disha 944800321 Problem Other and unspecified hyperlipidemia 272.4 Active 39672980 Problem Major depressive disorder, recurrent episode, moderate 296 .32 Active 03523916 Problem PTSD (post-traumatic stress disorder) F43.10 Active 76344243 Problem Generalized anxiety disorder 300.02 A ctive 22655523 Problem Anxiety F41.9 Active 58514908 Problem Depressive disorder, not elsewhere classified 311 Active 68998701 Problem Attention deficit hyperactivity disorder F90.9 Active 480588555 Problem Major depression F32.9 Active 370 418524 Problem Generalized anxiety disorder F41.1 A ctive 69827880 Problem Major depressive disorder, recurrent, moderate F33 .1 Active [id number] ALLERGIES No Information ENCOUNTERS Encounter Location Date Diagnosis [facility] [place] [address] [id number] [address] [place] [id number] May, [facility] [place] [address] [id number] [address] [place] [phone] May, Major depressive disorder, r ecurrent, moderate F33.1 ; Anxiety F41.9 ; PTSD (post-traumatic stress disorder) F43.10 and Neurocognitive disorder R41.9 [facility] [place] [address] [facility] [id number] [address] [place] [phone] Jun, [facility] [place] [address] [id number] [address] [place] [id number] May, Generalized anxiety disorder F41.1 ; Major depression F32.9 and Attention deficit hyperactivity disorder F90.9 [facility] [place] [address] [facility] [id number] [address] [place] [phone] Feb, [facility] [place] [address] [facility] [id number] [address] [place] [phone] Jan, [facility] [place] [address] [facility] [id number] [address] [place] [phone] Dec, [facility] [place] [address] [facility] [id number] [address] [place] [phone] Dec, [facility] [place] [address] [facility] [id number] [address] [place] [phone] Dec, Generalized anxiety disorder F41.1 ; Major depression F32.9 and Attention deficit hyperactivity disorder F90.9 [facility] [place] [address] [facility] [id number] [address] [place] [phone] Oct, [facility] [place] [address] [facility] [id number] [address] [place] [phone] Oct, [facility] [place] [address] [facility] [id number] [address] [place] [phone] Sep, [facility] [place] [address] [facility] [id number] [address] [place] [phone] Sep, [facility] [place] [address] [facility] [id number] [address] [place] [phone] Aug, [facility] [place] [address] [facility] [id number] [address] [place] [id number] Aug, Generalized anxiety disorder F41.1 ; Major depression F32.9 and Attention deficit hyperactivity disorder F90.9 [facility] [place] [address] [facility] [id number] [address] [place] [phone] Aug, [facility] [place] [address] [facility] [id number] [address] [place] [phone] Aug, [facility] [place] [address] [facility] [id number] [address] [place] [phone] Jun, [facility] [place] [address] [facility] [id number] [address] [place] [phone] Jun, [facility] [place] [address] [facility] [id number] [address] [place] [phone] Jun, Attention deficit hyperactiv ity disorder F90.9 ; Generalized anxiety disorder F41.1 and Major depression F32.9 [facility] [place] [address] [facility] [id number] [address] [place] [id number] Jun, [facility] [place] [address] [facility] [id number] [address] [place] [phone] Apr, [facility] [place] [address] [facility] [id number] [address] [place] [id number] Mar, [facility] [place] [address] [facility] [id number] [address] [place] [phone] Mar, [facility] [place] [address] [facility] [id number] [address] [place] [phone] Feb, ADD (attention deficit disor nerissa) 314.00 ; Major depressive disorder, recurrent episode, moderate 296.32 and Generalized anxiety disorder 300.02 [facility] [place] [address] [facility] [id number] [address] [place] [phone] Feb, [facility] [place] [address] [facility] [id number] [address] [place] [phone] Feb, [facility] [place] [address] [facility] [id number] [address] [place] [id number] Jan, [facility] [place] [address] [facility] [id number] [address] [place] [phone] Jan, [facility] [place] [address] [facility] [id number] [address] [place] [phone] Jan, [facility] [place] [address] [facility] [id number] [address] [place] [phone] Jan, [facility] [place] [address] [id number] [address] [place] [phone] Dec, [facility] [place] [address] [id number] [address] [place] [phone] Dec, [facility] [place] [address] [facility] [id number] [address] [place] [phone] Dec, [facility] [place] [address] [id number] [address] [place] [id number] November, Attention deficit disorder o f childhood 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 314.00 ; Generalized anxiety disorder 300.02 and Major depressive disorder, recurrent episode, moderate 296.32 [facility] [place] [address] [id number] [address] [place] [id number] November, [facility] [place] [address] [id number] [address] [place] [phone] November, [facility] [place] [address] [id number] [address] [place] [phone] November, Anxiety state 300.00 [facility] [place] [address] [id number] [address] [place] [phone] Oct, [facility] [place] [address] [facility] [id number] [address] [place] [phone] Oct, [facility] [place] [address] [id number] [address] [place] [phone] Sep, [facility] [place] [address] [id number] [address] [place] [phone] Sep, [facility] [place] [address] [id number] [address] [place] [phone] Sep, [facility] [place] [address] [facility] [id number] [address] [place] [phone] Sep, [facility] [place] [address] [facility] [id number] [address] [place] [phone] Sep, [facility] [address] [id number] [address] [place] [address], [place] [id number] Sep, [facility] [address] [id number] [address] [place] [address], [place] [id number] Aug, 2014 [facility] [address] [id number] [address] [place] [address], [place] [id number] Aug, 2014 [facility] [address] [id number] [address] [place] [address], [place] [id number] Aug, 2014 [facility] [address] [id number] [address] [place] [address], [place] [id number] Aug, 2014 [facility] [address] [id number] [address] [place] [address], [place] [id number] Aug, 2014 [facility] [address] [id number] [address] [place] [address], [place] [id number] Aug, [facility] [address] [id number] [address] [place] [address], [place] [id number] Aug, [facility] [address] [id number] [address] [place] [address], [place] [id number] Aug, [facility] [address] [id number] [address] [place] [address], [place] [id number] Jul, [facility] [address] [id number] [address] [place] [address], [place] [id number] Jul, [facility] [address] [id number] [address] [place] [phone] Jul, [facility] [address] [id number] [address] [place] [address], [place] [id number] Jul, [facility] [address] [id number] [address] [place] [address], [place] [id number] Jul, [facility] [address] [id number] [address] [place] [phone] Jul, [facility] [address] [id number] [address] [place] [phone] Jun, [facility] [address] [id number] [address] [place] [address], [place] [id number] Jun, [facility] [address] [id number] [address] [place] [address], [place] [id number] Jun, [facility] [address] [id number] [address] [place] [address], [place] [id number] Jun, [facility] [address] [id number] [address] [place] [address], [place] [id number] Jun, [facility] [address] [id number] [address] [place] [address], [place] [id number] Jun, [facility] [address] [id number] [address] [place] [address], [place] [id number] May, [facility] [address] [id number] [address] [place] [address], [place] [id number] May, [facility] [address] [id number] [address] [place] [address], [place] [id number] May, [facility] [address] [id number] [address] [place] [address], [place] [id number] May, [facility] [address] [id number] [address] [place] [address], [place] [address] May, [facility] [address] [id number] [address] [place] [address], [place] [address] May, [facility] [address] [id number] [address] [place] [address], [place] [address] May, [facility] [address] [id number] [address] [place] [address], [place] [id number] May, [facility] [address] [id number] [address] [place] [address], [place] [address] May, [facility] [address] [id number] [address] [place] [address], [place] [id number] May, [facility] [address] [id number] [address] [place] [address], [place] [id number] Apr, [facility] [address] [id number] [address] [place] [address], [place] [id number] Apr, [facility] [address] [id number] [address] [place] [address], [place] [id number] Apr, [facility] [address] [id number] [address] [place] [address], [place] [id number] Apr, [facility] [address] [id number] [address] [place] [address], [place] [id number] Apr, [facility] [address] [id number] [address] [place] [address], [place] [address] Apr, [facility] [address] [id number] [address] [place] [address], [place] [id number] Apr, [facility] [address] [id number] [address] [place] [address], [place] [id number] Apr, [facility] [address] [id number] [address] [place] [address], [place] [id number] 15 Mar, 2014 [facility] [address] [id number] [address] [place] [address], [place] [id number] 15 Mar, 2014 [facility] [address] [id number] [address] [place] [address], [place] [address] Mar, [facility] [address] [id number] [address] [place] [address], [place] [address] Mar, [facility] [address] [id number] [address] [place] [address], [place] [address] Mar, [facility] [address] [id number] [address] [place] [address], [place] [address] Mar, [facility] [address] [id number] [address] [place] [address], [place] [id number] Feb, [facility] [address] [id number] [address] [place] [address], [place] [address] Feb, [facility] [address] [id number] [facility] [place] [address] Feb, [facility] [address] [id number] [facility] [place] [address] Feb, [facility] [address] [id number] [facility] [place] [address] Feb, [facility] [address] [id number] [address] [place] [address], [place] [id number] Feb, [facility] [address] [id number] [address] [place] [address], [place] [address] Jan, [facility] [address] [id number] [address] [place] [address], [place] [address] Jan, [facility] [address] [id number] [address] [place] [address], [place] [address] Jan, [facility] [address] [id number] [address] [place] [address], [place] [address] Jan, [facility] [address] [id number] [address] [place] [address], [place] [address] Jan, [facility] [address] [id number] [address] [place] [address], [place] [address] Jan, [facility] [address] [id number] [address] [place] [address], [place] [address] Dec, [facility] [address] [id number] [address] [place] [address], [place] [address] Dec, [facility] [address] [id number] [address] [place] [address], [place] [address] Dec, [facility] [address] [id number] [address] [place] [address], [place] [address] Dec, [facility] [address] [id number] [address] [place] [address], [place] [address] Dec, [facility] [address] [id number] [address] [place] [address], [place] [address] November, [facility] [address] [id number] [address] [place] [address], [place] [id number] November, [facility] [address] [id number] [address] [place] [address], [place] [address] November, [facility] [address] [id number] [address] [place] [address], [place] [id number] November, [facility] [address] [id number] [address] [place] [address], [place] [id number] November, [facility] [address] [id number] [address] [place] [address], [place] [id number] November, [facility] [address] [id number] [address] [place] [address], [place] [address] November, [facility] [address] [id number] [address] [place] [address], [place] [address] November, [facility] [address] [id number] [address] [place] [address], [place] [address] Oct, [facility] [address] [id number] [address] [place] [address], [place] [id number] Oct, [facility] [address] [id number] [address] [place] [address], [place] [id number] Oct, [facility] [address] [id number] [address] [place] [address], [place] [address] Oct, [facility] [address] [id number] [address] [place] [address], [place] [address] Oct, [facility] [address] [id number] [address] [place] [address], [place] [address] Oct, [facility] [address] [id number] [address] [place] [address], [place] [address] Sep, [facility] [address] [id number] [address] [place] [address], [place] [address] Sep, [facility] [address] [id number] [facility] [place] [id number] 06 Sep, 2013 [facility] [address] [id number] [address] [place] [address], [place] [id number] 06 Sep, 2013 [facility] [address] [id number] [address] [place] [address], [place] [id number] 04 Sep, 2013 [facility] [address] [id number] [address] [place] [address], [place] [address] Sep, [facility] [address] [id number] [address] [place] [address], [place] [id number] Aug, [facility] [address] [id number] [address] [place] [address], [place] [id number] Aug, [facility] [address] [id number] [address] [place] [address], [place] [address] Jul, [facility] [address] [id number] [address] [place] [address], [place] [id number] Jul, [facility] [address] [id number] [address] [place] [address], [place] [address] Jul, [facility] [address] [id number] [address] [place] [address], [place] [id number] Jul, [facility] [address] [id number] [address] [place] [address], [place] [address] Jul, [facility] [address] [id number] [address] [place] [address], [place] [address] Jul, [facility] [address] [id number] [address] [place] [address], [place] [id number] Jul, [facility] [address] [id number] [address] [place] [address], [place] [id number] Jul, [facility] [address] [id number] [address] [place] [address], [place] [id number] Jul, [facility] [address] [id number] [address] [place] [address], [place] [id number] Jul, [facility] [address] [id number] [address] [place] [address], [place] [id number] Jul, [facility] [address] [id number] [address] [place] [address], [place] [id number] Jul, [facility] [address] [id number] [address] [place] [address], [place] [id number] Jun, [facility] [address] [id number] [address] [place] [address], [place] [id number] Jun, [facility] [address] [id number] [address] [place] [address], [place] [id number] Jun, [facility] [address] [id number] [address] [place] [address], [place] [id number] Jun, [facility] [address] [id number] [address] [place] [address], [place] [id number] Jun, [facility] [address] [id number] [address] [place] [address], [place] [id number] Jun, [facility] [address] [id number] [address] [place] [address], [place] [id number] Jun, [facility] [address] [id number] [address] [place] [address], [place] [id number] Jun, [facility] [address] [id number] [address] [place] [address], [place] [id number] 18 May, 2013 [facility] [address] [id number] [address] [place] [address], [place] [id number] 18 May, 2013 [facility] [address] [id number] [address] [place] [address], [place] [id number] 13 May, 2013 [facility] [address] [id number] [address] [place] [address], [place] [id number] 13 May, 2013 [facility] [address] [id number] [address] [place] [address], [place] [id number] 10 Apr, 2013 [facility] [address] [id number] [address] [place] [id number] 10 Apr, 2013 [facility] [place] [address] [facility] [id number] [address] [place] [id number] Apr, [facility] [place] [address] [facility] [id number] [address] [place] [id number] Mar, [facility] [place] [address] [facility] [id number] [address] [place] [id number] Feb, [facility] [place] [address] [facility] [id number] [address] [place] [id number] Jan, [facility] [place] [address] [facility] [id number] [address] [place] [id number] Jan, [facility] [place] [address] [facility] [id number] [address] [place] [id number] Jan, IMMUNIZATIONS No Known Immunizations SOCIAL HISTORY Never Assessed REASON FOR VISIT PLAN OF CARE VITAL SIGNS MEDICATIONS Unknown Medications RESULTS No Results PROCEDURES No Known procedures INSTRUCTIONS MEDICATIONS ADMINISTERED No Known Medications MEDICAL (GENERAL) HISTORY Type Description Date Medical History Major depressive disorder, recurrent, mo derate Medical History Other and unspecified hyperlipidemia Medical History Anxiety disorder, unspecified Medical History Generalized anxiety disorder Medical History Major depressive disorder, single episod e, unspecified Medical History Attention deficit disorder o f childhood 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 Medical History Attention deficit hyperactivity disorder Medical History Pain in joint, lower leg Medical History Essential (primary) hypertension Medical History PTSD Surgical History knee replacement x4 RT knee Hospitalization History UTI 12/04/2015
--- OUTSIDE RECORDS SUMMARY | 2020-01-12 11:24 | XMS REPORT ---
Author Author Cj PADILLA Organization [facility] Address [address] [place] [address] Care Team Providers Care Political Reporter Name Role Phone JUAN JOSÉ PADILLA Unavailable PROBLEMS Type Condition ICD9-CM Code OSX04-FB Code Onset Dates Condition S tatus SNOMED Code Problem Pain in joint, lower leg 719.46 Activ e 893349395 Problem Attention deficit disorder o f childhood 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 314.00 Active 49073916 Problem Essential hypertension, benign 401.1 Active 0379124 Problem Anxiety state, unspecified 300.00 Act disha 223076819 Problem Other and unspecified hyperlipidemia 272.4 Active 53267493 Problem Major depressive disorder, recurrent episode, moderate 296 .32 Active 29762629 Problem PTSD (post-traumatic stress disorder) F43.10 Active 24714665 Problem Generalized anxiety disorder 300.02 A ctive 58628918 Problem Anxiety F41.9 Active 72873425 Problem Depressive disorder, not elsewhere classified 311 Active 32662260 Problem Attention deficit hyperactivity disorder F90.9 Active 111335471 Problem Major depression F32.9 Active 370 470536 Problem Generalized anxiety disorder F41.1 A ctive 79189657 Problem Major depressive disorder, recurrent, moderate F33 .1 Active 24385522 ALLERGIES No Information ENCOUNTERS Encounter Location Date Diagnosis [facility] [address] [id number] [address] [place] [id number] May, [facility] [address] [id number] [address] [place] [address] May, Major depressive disorder, r ecurrent, moderate F33.1 ; Anxiety F41.9 ; PTSD (post-traumatic stress disorder) F43.10 and Neurocognitive disorder R41.9 [facility] [address] [facility] [id number] [address] [place] [address] Jun, [facility] [address] [id number] [address] [place] [address] May, Generalized anxiety disorder F41.1 ; Major depression F32.9 and Attention deficit hyperactivity disorder F90.9 [facility] [address] [facility] [id number] [address] [place] [phone] Feb, [facility] [address] [facility] [id number] [address] [place] [phone] Jan, [facility] [address] [facility] [id number] [address] [place] [phone] Dec, [facility] [address] [facility] [id number] [address] [place] [address] Dec, [facility] [address] [facility] [id number] [address] [place] [address] Dec, Generalized anxiety disorder F41.1 ; Major depression F32.9 and Attention deficit hyperactivity disorder F90.9 [facility] [address] [facility] [id number] [address] [place] [address] Oct, [facility] [address] [facility] [id number] [address] [place] [address] Oct, [facility] [address] [facility] [id number] [address] [place] [phone] Sep, [facility] [address] [facility] [id number] [address] [place] [address] Sep, [facility] [address] [facility] [id number] [address] [place] [phone] Aug, [facility] [address] [facility] [id number] [address] [place] [phone] Aug, Generalized anxiety disorder F41.1 ; Major depression F32.9 and Attention deficit hyperactivity disorder F90.9 [facility] [address] [facility] [id number] [address] [place] [phone] Aug, [facility] [address] [facility] [id number] [address] [place] [phone] Aug, [facility] [address] [facility] [id number] [address] [place] [phone] Jun, [facility] [address] [facility] [id number] [address] [place] [phone] Jun, [facility] [address] [facility] [id number] [address] [place] [phone] Jun, Attention deficit hyperactiv ity disorder F90.9 ; Generalized anxiety disorder F41.1 and Major depression F32.9 [facility] [address] [facility] [id number] [address] [place] [phone] Jun, [facility] [address] [facility] [id number] [address] [place] [address] Apr, [facility] [address] [facility] [id number] [address] [place] [phone] Mar, [facility] [address] [facility] [id number] [address] [place] [phone] Mar, [facility] [address] [facility] [id number] [address] [place] [phone] Feb, ADD (attention deficit disor nerissa) 314.00 ; Major depressive disorder, recurrent episode, moderate 296.32 and Generalized anxiety disorder 300.02 [facility] [address] [facility] [id number] [address] [place] [address] Feb, [facility] [address] [facility] [id number] [address] [place] [phone] Feb, [facility] [address] [facility] [id number] [address] [place] [phone] Jan, [facility] [address] [facility] [id number] [address] [place] [phone] Jan, [facility] [address] [facility] [id number] [address] [place] [phone] Jan, [facility] [address] [facility] [id number] [address] [place] [phone] Jan, [facility] [address] [id number] [address] [place] [address] Dec, [facility] [address] [id number] [address] [place] [phone] Dec, [facility] [address] [facility] [id number] [address] [place] [phone] Dec, [facility] [address] [id number] [address] [place] [address] November, Attention deficit disorder o f childhood 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 314.00 ; Generalized anxiety disorder 300.02 and Major depressive disorder, recurrent episode, moderate 296.32 [facility] [address] [id number] [address] [place] [address] November, [facility] [address] [id number] [address] [place] [phone] November, [facility] [address] [id number] [address] [place] [address] November, Anxiety state 300.00 [facility] [address] [id number] [address] [place] [phone] Oct, [facility] [address] [facility] [id number] [address] [place] [phone] Oct, [facility] [address] [id number] [address] [place] [phone] Sep, [facility] [address] [id number] [address] [place] [address] Sep, [facility] [address] [id number] [address] [place] [phone] Sep, [facility] [address] [facility] [id number] [address] [place] [phone] Sep, [facility] [address] [facility] [id number] [address] [place] [phone] Sep, [facility] [address] [id number] [address] [place] [address], [place] [address] Sep, [facility] [address] [id number] [address] [place] [address], [place] [address] Aug, 2014 [facility] [address] [id number] [address] [place] [address], [place] [address] Aug, 2014 [facility] [address] [id number] [address] [place] [address], [place] [address] Aug, 2014 [facility] [address] [id number] [address] [place] [address], [place] [address] Aug, 2014 [facility] [address] [id number] [address] [place] [address], [place] [address] Aug, 2014 [facility] [address] [id number] [address] [place] [address], [place] [address] Aug, [facility] [address] [id number] [address] [place] [address], [place] [address] Aug, [facility] [address] [id number] [address] [place] [address], [place] [address] Aug, [facility] [address] [id number] [address] [place] [address], [place] [address] Jul, [facility] [address] [id number] [address] [place] [address], [place] [address] Jul, [facility] [address] [id number] [address] [place] [phone] Jul, [facility] [address] [id number] [address] [place] [address], [place] [address] Jul, [facility] [address] [id number] [address] [place] [address], [place] [address] Jul, [facility] [address] [id number] [address] [place] [id number] Jul, [facility] [address] [id number] [address] [place] [phone] Jun, [facility] [address] [id number] [address] [place] [address], [place] [address] Jun, [facility] [address] [id number] [address] [place] [address], [place] [address] Jun, [facility] [address] [id number] [address] [place] [address], [place] [address] Jun, [facility] [address] [id number] [address] [place] [address], [place] [address] Jun, [facility] [address] [id number] [address] [place] [address], [place] [address] Jun, [facility] [address] [id number] [address] [place] [address], [place] [address] May, [facility] [address] [id number] [address] [place] [address], [place] [address] May, [facility] [address] [id number] [address] [place] [address], [place] [address] May, [facility] [address] [id number] [address] [place] [address], [place] [address] May, [facility] [address] [id number] [address] [place] [address], [place] [address] May, [facility] [address] [id number] [address] [place] [address], [place] [address] May, [facility] [address] [id number] [address] [place] [address], [place] [address] May, [facility] [address] [id number] [address] [place] [address], [place] [address] May, [facility] [address] [id number] [address] [place] [address], [place] [address] May, [facility] [address] [id number] [address] [place] [address], [place] [address] May, [facility] [address] [id number] [address] [place] [address], [place] [address] Apr, [facility] [address] [id number] [address] [place] [address], [place] [address] Apr, [facility] [address] [id number] [address] [place] [address], [place] [address] Apr, [facility] [address] [id number] [address] [place] [address], [place] [address] Apr, [facility] [address] [id number] [address] [place] [address], [place] [address] Apr, [facility] [address] [id number] [address] [place] [address], [place] [address] Apr, [facility] [address] [id number] [address] [place] [address], [place] [address] Apr, [facility] [address] [id number] [address] [place] [address], [place] [address] Apr, [facility] [address] [id number] [address] [place] [address], [place] [address] 15 Mar, 2014 [facility] [address] [id number] [address] [place] [address], [place] [address] 15 Mar, 2014 [facility] [address] [id number] [address] [place] [address], [place] [address] Mar, [facility] [address] [id number] [address] [place] [address], [place] [address] Mar, [facility] [address] [id number] [address] [place] [address], [place] [address] Mar, [facility] [address] [id number] [address] [place] [address], [place] [address] Mar, [facility] [address] [id number] [address] [place] [address], [place] [address] Feb, [facility] [address] [id number] [address] [place] [address], [place] [address] Feb, [facility] [address] [id number] [facility] [place] [address] Feb, [facility] [address] [id number] [facility] [place] [address] Feb, [facility] [address] [id number] [facility] [place] [address] Feb, [facility] [address] [id number] [address] [place] [address], [place] [address] Feb, [facility] [address] [id number] [address] [place] [address], [place] [address] Jan, [facility] [address] [id number] [address] [place] [address], [place] [address] Jan, [facility] [address] [id number] [address] [place] [address], [place] [address] Jan, [facility] [address] [id number] [address] [place] [address], [place] [address] Jan, [facility] [address] [id number] [address] [place] [address], [place] [address] Jan, [facility] [address] [id number] [address] [place] [address], [place] [address] Jan, [facility] [address] [id number] [address] [place] [address], [place] [address] Dec, [facility] [address] [id number] [address] [place] [address], [place] [address] Dec, [facility] [address] [id number] [address] [place] [address], [place] [address] Dec, [facility] [address] [id number] [address] [place] [address], [place] [address] Dec, [facility] [address] [id number] [address] [place] [address], [place] [address] Dec, [facility] [address] [id number] [address] [place] [address], [place] [address] November, [facility] [address] [id number] [address] [place] [address], [place] [address] November, [facility] [address] [id number] [address] [place] [address], [place] [address] November, [facility] [address] [id number] [address] [place] [address], [place] [address] November, [facility] [address] [id number] [address] [place] [address], [place] [address] November, [facility] [address] [id number] [address] [place] [address], [place] [address] November, [facility] [address] [id number] [address] [place] [address], [place] [address] November, [facility] [address] [id number] [address] [place] [address], [place] [address] November, [facility] [address] [id number] [address] [place] [address], [place] [address] Oct, [facility] [address] [id number] [address] [place] [address], [place] [address] Oct, [facility] [address] [id number] [address] [place] [address], [place] [address] Oct, [facility] [address] [id number] [address] [place] [address], [place] [address] Oct, [facility] [address] [id number] [address] [place] [address], [place] [address] Oct, [facility] [address] [id number] [address] [place] [address], [place] [address] Oct, [facility] [address] [id number] [address] [place] [address], [place] [address] Sep, [facility] [address] [id number] [address] [place] [address], [place] [address] Sep, [facility] [address] [id number] [facility] [place] [address] 06 Sep, 2013 [facility] [address] [id number] [address] [place] [address], [place] [address] 06 Sep, 2013 [facility] [address] [id number] [address] [place] [address], [place] [address] 04 Sep, 2013 [facility] [address] [id number] [address] [place] [address], [place] [address] Sep, [facility] [address] [id number] [address] [place] [address], [place] [address] Aug, [facility] [address] [id number] [address] [place] [address], [place] [address] Aug, [facility] [address] [id number] [address] [place] [address], [place] [address] Jul, [facility] [address] [id number] [address] [place] [address], [place] [address] Jul, [facility] [address] [id number] [address] [place] [address], [place] [address] Jul, [facility] [address] [id number] [address] [place] [address], [place] [address] Jul, [facility] [address] [id number] [address] [place] [address], [place] [address] Jul, [facility] [address] [id number] [address] [place] [address], [place] [address] Jul, [facility] [address] [id number] [address] [place] [address], [place] [address] Jul, [facility] [address] [id number] [address] [place] [address], [place] [address] Jul, [facility] [address] [id number] [address] [place] [address], [place] [address] Jul, [facility] [address] [id number] [address] [place] [address], [place] [address] Jul, [facility] [address] [id number] [address] [place] [address], [place] [address] Jul, [facility] [address] [id number] [address] [place] [address], [place] [address] Jul, [facility] [address] [id number] [address] [place] [address], [place] [address] Jun, [facility] [address] [id number] [address] [place] [address], [place] [address] Jun, [facility] [address] [id number] [address] [place] [address], [place] [address] Jun, [facility] [address] [id number] [address] [place] [address], [place] [id number] Jun, [facility] [address] [id number] [address] [place] [address], [place] [id number] Jun, [facility] [address] [id number] [address] [place] [address], [place] [id number] Jun, [facility] [address] [id number] [address] [place] [address], [place] [id number] Jun, [facility] [address] [id number] [address] [place] [address], [place] [id number] Jun, [facility] [address] [id number] [address] [place] [address], [place] [id number] 18 May, 2013 [facility] [address] [id number] [address] [place] [address], [place] [id number] 18 May, 2013 [facility] [address] [id number] [address] [place] [address], [place] [id number] 13 May, 2013 [facility] [address] [id number] [address] [place] [address], [place] [id number] 13 May, 2013 [facility] [address] [id number] [address] [place] [address], [place] [id number] 10 Apr, 2013 [facility] [address] [id number] [address] [place] [id number] 10 Apr, 2013 [facility] [address] [facility] [id number] [address] [place] [id number] Apr, [facility] [address] [facility] [id number] [address] [place] [id number] Mar, [facility] [address] [facility] [id number] [address] [place] [phone] Feb, [facility] [address] [facility] [id number] [address] [place] [id number] Jan, [facility] [address] [facility] [id number] [address] [place] [phone] Jan, [facility] [address] [facility] [id number] [address] [place] [phone] Jan, IMMUNIZATIONS No Known Immunizations SOCIAL HISTORY [...]
--- OUTSIDE RECORDS SUMMARY | 2020-01-12 11:24 | XMS REPORT ---
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 Name Role Phone JUAN JOSÉ PADILLA Unavailable PROBLEMS Type Condition ICD9-CM Code ANO23-LG Code Onset Dates Condition S tatus SNOMED Code Problem Pain in joint, lower leg 719.46 Activ e 746166407 Problem Attention deficit disorder o f childhood 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 314.00 Active 51475665 Problem Essential hypertension, benign 401.1 Active 9256337 Problem Anxiety state, unspecified 300.00 Act disha 155355994 Problem Other and unspecified hyperlipidemia 272.4 Active 15471210 Problem Major depressive disorder, recurrent episode, moderate 296 .32 Active 65251210 Problem PTSD (post-traumatic stress disorder) F43.10 Active 31034090 Problem Generalized anxiety disorder 300.02 A ctive 55399366 Problem Anxiety F41.9 Active 61179602 Problem Depressive disorder, not elsewhere classified 311 Active 04636851 Problem Attention deficit hyperactivity disorder F90.9 Active 956914784 Problem Major depression F32.9 Active 370 769533 Problem Generalized anxiety disorder F41.1 A ctive 65481525 Problem Major depressive disorder, recurrent, moderate F33 .1 Active 46065493 ALLERGIES No Information ENCOUNTERS Encounter Location Date Diagnosis [facility] [address] [id number] [address] [place] [address] May, [facility] [address] [id number] [address] [place] [address] May, Major depressive disorder, r ecurrent, moderate F33.1 ; Anxiety F41.9 ; PTSD (post-traumatic stress disorder) F43.10 and Neurocognitive disorder R41.9 [facility] [address] [facility] [id number] [address] [place] [address] Jun, [facility] [address] [id number] [address] [place] [address] May, Generalized anxiety disorder F41.1 ; Major depression F32.9 and Attention deficit hyperactivity disorder F90.9 [facility] [address] [facility] [id number] [address] [place] [address] Feb, [facility] [address] [facility] [id number] [address] [place] [address] Jan, [facility] [address] [facility] [id number] [address] [place] [address] Dec, [facility] [address] [facility] [id number] [address] [place] [address] Dec, [facility] [address] [facility] [id number] [address] [place] [address] Dec, Generalized anxiety disorder F41.1 ; Major depression F32.9 and Attention deficit hyperactivity disorder F90.9 [facility] [address] [facility] [id number] [address] [place] [address] Oct, [facility] [address] [facility] [id number] [address] [place] [address] Oct, [facility] [address] [facility] [id number] [address] [place] [address] Sep, [facility] [address] [facility] [id number] [address] [place] [address] Sep, [facility] [address] [facility] [id number] [address] [place] [address] Aug, [facility] [address] [facility] [id number] [address] [place] [address] Aug, Generalized anxiety disorder F41.1 ; Major depression F32.9 and Attention deficit hyperactivity disorder F90.9 [facility] [address] [facility] [id number] [address] [place] [address] Aug, [facility] [address] [facility] [id number] [address] [place] [address] Aug, [facility] [address] [facility] [id number] [address] [place] [address] Jun, [facility] [address] [facility] [id number] [address] [place] [address] Jun, [facility] [address] [facility] [id number] [address] [place] [address] Jun, Attention deficit hyperactiv ity disorder F90.9 ; Generalized anxiety disorder F41.1 and Major depression F32.9 [facility] [address] [facility] [id number] [address] [place] [address] Jun, [facility] [address] [facility] [id number] [address] [place] [address] Apr, [facility] [address] [facility] [id number] [address] [place] [address] Mar, [facility] [address] [facility] [id number] [address] [place] [address] Mar, [facility] [address] [facility] [id number] [address] [place] [address] Feb, ADD (attention deficit disor nerissa) 314.00 ; Major depressive disorder, recurrent episode, moderate 296.32 and Generalized anxiety disorder 300.02 [facility] [address] [facility] [id number] [address] [place] [address] Feb, [facility] [address] [facility] [id number] [address] [place] [address] Feb, [facility] [address] [facility] [id number] [address] [place] [address] Jan, [facility] [address] [facility] [id number] [address] [place] [address] Jan, [facility] [address] [facility] [id number] [address] [place] [address] Jan, [facility] [address] [facility] [id number] [address] [place] [address] Jan, [facility] [address] [id number] [address] [place] [address] Dec, [facility] [address] [id number] [address] [place] [address] Dec, [facility] [address] [facility] [id number] [address] [place] [address] Dec, [facility] [address] [id number] [address] [place] [address] November, Attention deficit disorder o f childhood 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 314.00 ; Generalized anxiety disorder 300.02 and Major depressive disorder, recurrent episode, moderate 296.32 [facility] [address] [id number] [address] [place] [address] November, [facility] [address] [id number] [address] [place] [address] November, [facility] [address] [id number] [address] [place] [address] November, Anxiety state 300.00 [facility] [address] [id number] [address] [place] [address] Oct, [facility] [address] [facility] [id number] [address] [place] [address] Oct, [facility] [address] [id number] [address] [place] [address] Sep, [facility] [address] [id number] [address] [place] [address] Sep, [facility] [address] [id number] [address] [place] [address] Sep, [facility] [address] [facility] [id number] [address] [place] [address] Sep, [facility] [address] [facility] [id number] [address] [place] [address] Sep, [facility] [address] [id number] [address] [place] [address], [place] [address] Sep, [facility] [address] [id number] [address] [place] [address], [place] [address] Aug, 2014 [facility] [address] [id number] [address] [place] [address], [place] [address] Aug, 2014 [facility] [address] [id number] [address] [place] [address], [place] [address] Aug, 2014 [facility] [address] [id number] [address] [place] [address], [place] [address] Aug, 2014 [facility] [address] [id number] [address] [place] [address], [place] [address] Aug, 2014 [facility] [address] [id number] [address] [place] [address], [place] [address] Aug, [facility] [address] [id number] [address] [place] [address], [place] [address] Aug, [facility] [address] [id number] [address] [place] [address], [place] [address] Aug, [facility] [address] [id number] [address] [place] [address], [place] [address] Jul, [facility] [address] [id number] [address] [place] [address], [place] [address] Jul, [facility] [address] [id number] [address] [place] [address] Jul, [facility] [address] [id number] [address] [place] [address], [place] [address] Jul, [facility] [address] [id number] [address] [place] [address], [place] [address] Jul, [facility] [address] [id number] [address] [place] [address] Jul, [facility] [address] [id number] [address] [place] [address] Jun, [facility] [address] [id number] [address] [place] [address], [place] [address] Jun, [facility] [address] [id number] [address] [place] [address], [place] [address] Jun, [facility] [address] [id number] [address] [place] [address], [place] [address] Jun, [facility] [address] [id number] [address] [place] [address], [place] [address] Jun, [facility] [address] [id number] [address] [place] [address], [place] [address] Jun, [facility] [address] [id number] [address] [place] [address], [place] [address] May, [facility] [address] [id number] [address] [place] [address], [place] [address] May, [facility] [address] [id number] [address] [place] [address], [place] [address] May, [facility] [address] [id number] [address] [place] [address], [place] [address] May, [facility] [address] [id number] [address] [place] [address], [place] [address] May, [facility] [address] [id number] [address] [place] [address], [place] [address] May, [facility] [address] [id number] [address] [place] [address], [place] [address] May, [facility] [address] [id number] [address] [place] [address], [place] [address] May, [facility] [address] [id number] [address] [place] [address], [place] [address] May, [facility] [address] [id number] [address] [place] [address], [place] [address] May, [facility] [address] [id number] [address] [place] [address], [place] [address] Apr, [facility] [address] [id number] [address] [place] [address], [place] [address] Apr, [facility] [address] [id number] [address] [place] [address], [place] [address] Apr, [facility] [address] [id number] [address] [place] [address], [place] [address] Apr, [facility] [address] [id number] [address] [place] [address], [place] [address] Apr, [facility] [address] [id number] [address] [place] [address], [place] [address] Apr, [facility] [address] [id number] [address] [place] [address], [place] [address] Apr, [facility] [address] [id number] [address] [place] [address], [place] [address] Apr, [facility] [address] [id number] [address] [place] [address], [place] [address] 15 Mar, 2014 [facility] [address] [id number] [address] [place] [address], [place] [address] 15 Mar, 2014 [facility] [address] [id number] [address] [place] [address], [place] [address] Mar, [facility] [address] [id number] [address] [place] [address], [place] [address] Mar, [facility] [address] [id number] [address] [place] [address], [place] [address] Mar, [facility] [address] [id number] [address] [place] [address], [place] [address] Mar, [facility] [address] [id number] [address] [place] [address], [place] [address] Feb, [facility] [address] [id number] [address] [place] [address], [place] [address] Feb, [facility] [address] [id number] [facility] [place] [address] Feb, [facility] [address] [id number] [facility] [place] [address] Feb, [facility] [address] [id number] [facility] [place] [address] Feb, [facility] [address] [id number] [address] [place] [address], [place] [address] Feb, [facility] [address] [id number] [address] [place] [address], [place] [address] Jan, [facility] [address] [id number] [address] [place] [address], [place] [address] Jan, [facility] [address] [id number] [address] [place] [address], [place] [address] Jan, [facility] [address] [id number] [address] [place] [address], [place] [address] Jan, [facility] [address] [id number] [address] [place] [address], [place] [address] Jan, [facility] [address] [id number] [address] [place] [address], [place] [address] Jan, [facility] [address] [id number] [address] [place] [address], [place] [address] Dec, [facility] [address] [id number] [address] [place] [address], [place] [address] Dec, [facility] [address] [id number] [address] [place] [address], [place] [address] Dec, [facility] [address] [id number] [address] [place] [address], [place] [address] Dec, [facility] [address] [id number] [address] [place] [address], [place] [address] Dec, [facility] [address] [id number] [address] [place] [address], [place] [address] November, [facility] [address] [id number] [address] [place] [address], [place] [address] November, [facility] [address] [id number] [address] [place] [address], [place] [address] November, [facility] [address] [id number] [address] [place] [address], [place] [address] November, [facility] [address] [id number] [address] [place] [address], [place] [address] November, [facility] [address] [id number] [address] [place] [address], [place] [address] November, [facility] [address] [id number] [address] [place] [address], [place] [address] November, [facility] [address] [id number] [address] [place] [address], [place] [address] November, [facility] [address] [id number] [address] [place] [address], [place] [address] Oct, [facility] [address] [id number] [address] [place] [address], [place] [address] Oct, [facility] [address] [id number] [address] [place] [address], [place] [address] Oct, [facility] [address] [id number] [address] [place] [address], [place] [address] Oct, [facility] [address] [id number] [address] [place] [address], [place] [address] Oct, [facility] [address] [id number] [address] [place] [address], [place] [address] Oct, [facility] [address] [id number] [address] [place] [address], [place] [address] Sep, [facility] [address] [id number] [address] [place] [address], [place] [address] Sep, [facility] [address] [id number] [facility] [place] [address] 06 Sep, 2013 [facility] [address] [id number] [address] [place] [address], [place] [address] 06 Sep, 2013 [facility] [address] [id number] [address] [place] [address], [place] [address] 04 Sep, 2013 [facility] [address] [id number] [address] [place] [address], [place] [address] Sep, [facility] [address] [id number] [address] [place] [address], [place] [address] Aug, [facility] [address] [id number] [address] [place] [address], [place] [address] Aug, [facility] [address] [id number] [address] [place] [address], [place] [address] Jul, [facility] [address] [id number] [address] [place] [address], [place] [address] Jul, [facility] [address] [id number] [address] [place] [address], [place] [address] Jul, [facility] [address] [id number] [address] [place] [address], [place] [address] Jul, [facility] [address] [id number] [address] [place] [address], [place] [address] Jul, [facility] [address] [id number] [address] [place] [address], [place] [address] Jul, [facility] [address] [id number] [address] [place] [address], [place] [address] Jul, [facility] [address] [id number] [address] [place] [address], [place] [address] Jul, [facility] [address] [id number] [address] [place] [address], [place] [address] Jul, [facility] [address] [id number] [address] [place] [address], [place] [address] Jul, [facility] [address] [id number] [address] [place] [address], [place] [address] Jul, [facility] [address] [id number] [address] [place] [address], [place] [address] Jul, [facility] [address] [id number] [address] [place] [address], [place] [address] Jun, [facility] [address] [id number] [address] [place] [address], [place] [address] Jun, [facility] [address] [id number] [address] [place] [address], [place] [address] Jun, [facility] [address] [id number] [address] [place] [address], [place] [address] Jun, [facility] [address] [id number] [address] [place] [address], [place] [address] Jun, [facility] [address] [id number] [address] [place] [address], [place] [address] Jun, [facility] [address] [id number] [address] [place] [address], [place] [address] Jun, [facility] [address] [id number] [address] [place] [address], [place] [address] Jun, [facility] [address] [id number] [address] [place] [address], [place] [address] 18 May, 2013 [facility] [address] [id number] [address] [place] [address], [place] [id number] 18 May, 2013 [facility] [address] [id number] [address] [place] [address], [place] [address] 13 May, 2013 [facility] [address] [id number] [address] [place] [address], [place] [address] 13 May, 2013 [facility] [address] [id number] [address] [place] [address], [place] [address] 10 Apr, 2013 [facility] [address] [id number] [address] [place] [phone] 10 Apr, 2013 [facility] [address] [facility] [id number] [address] [place] [id number] Apr, [facility] [address] [facility] [id number] [address] [place] [id number] Mar, [facility] [address] [facility] [id number] [address] [place] [id number] Feb, [facility] [address] [facility] [id number] [address] [place] [id number] Jan, [facility] [address] [facility] [id number] [address] [place] [id number] Jan, [facility] [address] [facility] [id number] [address] [place] [id number] Jan, IMMUNIZATIONS No Known Immunizations SOCIAL HISTORY [...]
--- OUTSIDE RECORDS SUMMARY | 2020-01-12 11:24 | XMS REPORT ---
Author Author Cj PADILLA Organization [facility] Address [address] [place] [address] Care Team Providers Care Sales Floor Team Member Name Role Phone JUAN JOSÉ PADILLA Unavailable PROBLEMS Type Condition ICD9-CM Code [id number] Code Onset Dates Condition S tatus SNOMED Code Problem Pain in joint, lower leg 719.46 Activ e 127120732 Problem Attention deficit disorder o f childhood 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 314.00 Active 91899481 Problem Essential hypertension, benign 401.1 Active 5095660 Problem Anxiety state, unspecified 300.00 Act disha 892839817 Problem Other and unspecified hyperlipidemia 272.4 Active 27023881 Problem Major depressive disorder, recurrent episode, moderate 296 .32 Active 03900109 Problem PTSD (post-traumatic stress disorder) F43.10 Active 68230219 Problem Generalized anxiety disorder 300.02 A ctive 98612741 Problem Anxiety F41.9 Active 34096236 Problem Depressive disorder, not elsewhere classified 311 Active 01958618 Problem Attention deficit hyperactivity disorder F90.9 Active 836839782 Problem Major depression F32.9 Active 370 754578 Problem Generalized anxiety disorder F41.1 A ctive 94789623 Problem Major depressive disorder, recurrent, moderate F33 .1 Active 17550563 ALLERGIES No Information ENCOUNTERS Encounter Location Date Diagnosis [facility] [address] [id number] [address] [place] [address] May, [facility] [address] [id number] [address] [place] [address] May, Major depressive disorder, r ecurrent, moderate F33.1 ; Anxiety F41.9 ; PTSD (post-traumatic stress disorder) F43.10 and Neurocognitive disorder R41.9 [facility] [address] [facility] [id number] [address] [place] [address] Jun, [facility] [address] [id number] [address] [place] [address] May, Generalized anxiety disorder F41.1 ; Major depression F32.9 and Attention deficit hyperactivity disorder F90.9 [facility] [address] [facility] [id number] [address] [place] [address] Feb, [facility] [address] [facility] [id number] [address] [place] [address] Jan, [facility] [address] [facility] [id number] [address] [place] [address] Dec, [facility] [address] [facility] [id number] [address] [place] [address] Dec, [facility] [address] [facility] [id number] [address] [place] [address] Dec, Generalized anxiety disorder F41.1 ; Major depression F32.9 and Attention deficit hyperactivity disorder F90.9 [facility] [address] [facility] [id number] [address] [place] [address] Oct, [facility] [address] [facility] [id number] [address] [place] [address] Oct, [facility] [address] [facility] [id number] [address] [place] [address] Sep, [facility] [address] [facility] [id number] [address] [place] [address] Sep, [facility] [address] [facility] [id number] [address] [place] [address] Aug, [facility] [address] [facility] [id number] [address] [place] [phone] Aug, Generalized anxiety disorder F41.1 ; Major depression F32.9 and Attention deficit hyperactivity disorder F90.9 [facility] [address] [facility] [id number] [address] [place] [phone] Aug, [facility] [address] [facility] [id number] [address] [place] [address] Aug, [facility] [address] [facility] [id number] [address] [place] [phone] Jun, [facility] [address] [facility] [id number] [address] [place] [phone] Jun, [facility] [address] [facility] [id number] [address] [place] [address] Jun, Attention deficit hyperactiv ity disorder F90.9 ; Generalized anxiety disorder F41.1 and Major depression F32.9 [facility] [address] [facility] [id number] [address] [place] [address] Jun, [facility] [address] [facility] [id number] [address] [place] [phone] Apr, [facility] [address] [facility] [id number] [address] [place] [address] Mar, [facility] [address] [facility] [id number] [address] [place] [address] Mar, [facility] [address] [facility] [id number] [address] [place] [phone] Feb, ADD (attention deficit disor nerissa) 314.00 ; Major depressive disorder, recurrent episode, moderate 296.32 and Generalized anxiety disorder 300.02 [facility] [address] [facility] [id number] [address] [place] [address] Feb, [facility] [address] [facility] [id number] [address] [place] [address] Feb, [facility] [address] [facility] [id number] [address] [place] [address] Jan, [facility] [address] [facility] [id number] [address] [place] [phone] Jan, [facility] [address] [facility] [id number] [address] [place] [address] Jan, [facility] [address] [facility] [id number] [address] [place] [phone] Jan, [facility] [address] [id number] [address] [place] [address] Dec, [facility] [address] [id number] [address] [place] [phone] Dec, [facility] [address] [facility] [id number] [address] [place] [address] Dec, [facility] [address] [id number] [address] [place] [address] November, Attention deficit disorder o f childhood 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 314.00 ; Generalized anxiety disorder 300.02 and Major depressive disorder, recurrent episode, moderate 296.32 [facility] [address] [id number] [address] [place] [address] November, [facility] [address] [id number] [address] [place] [address] November, [facility] [address] [id number] [address] [place] [address] November, Anxiety state 300.00 [facility] [address] [id number] [address] [place] [address] Oct, [facility] [address] [facility] [id number] [address] [place] [address] Oct, [facility] [address] [id number] [address] [place] [phone] Sep, [facility] [address] [id number] [address] [place] [phone] Sep, [facility] [address] [id number] [address] [place] [phone] Sep, [facility] [address] [facility] [id number] [address] [place] [phone] Sep, [facility] [address] [facility] [id number] [address] [place] [address] Sep, [facility] [address] [id number] [address] [place] [address], [place] [address] Sep, [facility] [address] [id number] [address] [place] [address], [place] [address] Aug, 2014 [facility] [address] [id number] [address] [place] [address], [place] [address] Aug, 2014 [facility] [address] [id number] [address] [place] [address], [place] [address] Aug, 2014 [facility] [address] [id number] [address] [place] [address], [place] [address] Aug, 2014 [facility] [address] [id number] [address] [place] [address], [place] [address] Aug, 2014 [facility] [address] [id number] [address] [place] [address], [place] [address] Aug, [facility] [address] [id number] [address] [place] [address], [place] [address] Aug, [facility] [address] [id number] [address] [place] [address], [place] [address] Aug, [facility] [address] [id number] [address] [place] [address], [place] [address] Jul, [facility] [address] [id number] [address] [place] [address], [place] [address] Jul, [facility] [address] [id number] [address] [place] [phone] Jul, [facility] [address] [id number] [address] [place] [address], [place] [address] Jul, [facility] [address] [id number] [address] [place] [address], [place] [address] Jul, [facility] [address] [id number] [address] [place] [phone] Jul, [facility] [address] [id number] [address] [place] [phone] Jun, [facility] [address] [id number] [address] [place] [address], [place] [address] Jun, [facility] [address] [id number] [address] [place] [address], [place] [address] Jun, [facility] [address] [id number] [address] [place] [address], [place] [address] Jun, [facility] [address] [id number] [address] [place] [address], [place] [address] Jun, [facility] [address] [id number] [address] [place] [address], [place] [address] Jun, [facility] [address] [id number] [address] [place] [address], [place] [address] May, [facility] [address] [id number] [address] [place] [address], [place] [address] May, [facility] [address] [id number] [address] [place] [address], [place] [address] May, [facility] [address] [id number] [address] [place] [address], [place] [address] May, [facility] [address] [id number] [address] [place] [address], [place] [address] May, [facility] [address] [id number] [address] [place] [address], [place] [address] May, [facility] [address] [id number] [address] [place] [address], [place] [address] May, [facility] [address] [id number] [address] [place] [address], [place] [address] May, [facility] [address] [id number] [address] [place] [address], [place] [address] May, [facility] [address] [id number] [address] [place] [address], [place] [address] May, [facility] [address] [id number] [address] [place] [address], [place] [address] Apr, [facility] [address] [id number] [address] [place] [address], [place] [address] Apr, [facility] [address] [id number] [address] [place] [address], [place] [address] Apr, [facility] [address] [id number] [address] [place] [address], [place] [address] Apr, [facility] [address] [id number] [address] [place] [address], [place] [address] Apr, [facility] [address] [id number] [address] [place] [address], [place] [address] Apr, [facility] [address] [id number] [address] [place] [address], [place] [address] Apr, [facility] [address] [id number] [address] [place] [address], [place] [address] Apr, [facility] [address] [id number] [address] [place] [address], [place] [address] 15 Mar, 2014 [facility] [address] [id number] [address] [place] [address], [place] [address] 15 Mar, 2014 [facility] [address] [id number] [address] [place] [address], [place] [address] Mar, [facility] [address] [id number] [address] [place] [address], [place] [address] Mar, [facility] [address] [id number] [address] [place] [address], [place] [address] Mar, [facility] [address] [id number] [address] [place] [address], [place] [address] Mar, [facility] [address] [id number] [address] [place] [address], [place] [address] Feb, [facility] [address] [id number] [address] [place] [address], [place] [address] Feb, [facility] [address] [id number] [facility] [place] [address] Feb, [facility] [address] [id number] [facility] [place] [address] Feb, [facility] [address] [id number] [facility] [place] [address] Feb, [facility] [address] [id number] [address] [place] [address], [place] [address] Feb, [facility] [address] [id number] [address] [place] [address], [place] [address] Jan, [facility] [address] [id number] [address] [place] [address], [place] [address] Jan, [facility] [address] [id number] [address] [place] [address], [place] [address] Jan, [facility] [address] [id number] [address] [place] [address], [place] [address] Jan, [facility] [address] [id number] [address] [place] [address], [place] [address] Jan, [facility] [address] [id number] [address] [place] [address], [place] [address] Jan, [facility] [address] [id number] [address] [place] [address], [place] [address] Dec, [facility] [address] [id number] [address] [place] [address], [place] [address] Dec, [facility] [address] [id number] [address] [place] [address], [place] [address] Dec, [facility] [address] [id number] [address] [place] [address], [place] [address] Dec, [facility] [address] [id number] [address] [place] [address], [place] [address] Dec, [facility] [address] [id number] [address] [place] [address], [place] [address] November, [facility] [address] [id number] [address] [place] [address], [place] [address] November, [facility] [address] [id number] [address] [place] [address], [place] [address] November, [facility] [address] [id number] [address] [place] [address], [place] [address] November, [facility] [address] [id number] [address] [place] [address], [place] [address] November, [facility] [address] [id number] [address] [place] [address], [place] [address] November, [facility] [address] [id number] [address] [place] [address], [place] [address] November, [facility] [address] [id number] [address] [place] [address], [place] [address] November, [facility] [address] [id number] [address] [place] [address], [place] [address] Oct, [facility] [address] [id number] [address] [place] [address], [place] [address] Oct, [facility] [address] [id number] [address] [place] [address], [place] [address] Oct, [facility] [address] [id number] [address] [place] [address], [place] [address] Oct, [facility] [address] [id number] [address] [place] [address], [place] [address] Oct, [facility] [address] [id number] [address] [place] [address], [place] [address] Oct, [facility] [address] [id number] [address] [place] [address], [place] [address] Sep, [facility] [address] [id number] [address] [place] [address], [place] [address] Sep, [facility] [address] [id number] [facility] [place] [address] 06 Sep, 2013 [facility] [address] [id number] [address] [place] [address], [place] [address] 06 Sep, 2013 [facility] [address] [id number] [address] [place] [address], [place] [address] 04 Sep, 2013 [facility] [address] [id number] [address] [place] [address], [place] [address] Sep, [facility] [address] [id number] [address] [place] [address], [place] [address] Aug, [facility] [address] [id number] [address] [place] [address], [place] [address] Aug, [facility] [address] [id number] [address] [place] [address], [place] [address] Jul, [facility] [address] [id number] [address] [place] [address], [place] [address] Jul, [facility] [address] [id number] [address] [place] [address], [place] [address] Jul, [facility] [address] [id number] [address] [place] [address], [place] [address] Jul, [facility] [address] [id number] [address] [place] [address], [place] [address] Jul, [facility] [address] [id number] [address] [place] [address], [place] [address] Jul, [facility] [address] [id number] [address] [place] [address], [place] [address] Jul, [facility] [address] [id number] [address] [place] [address], [place] [address] Jul, [facility] [address] [id number] [address] [place] [address], [place] [address] Jul, [facility] [address] [id number] [address] [place] [address], [place] [address] Jul, [facility] [address] [id number] [address] [place] [address], [place] [address] Jul, [facility] [address] [id number] [address] [place] [address], [place] [address] Jul, [facility] [address] [id number] [address] [place] [address], [place] [address] Jun, [facility] [address] [id number] [address] [place] [address], [place] [address] Jun, [facility] [address] [id number] [address] [place] [address], [place] [address] Jun, [facility] [address] [id number] [address] [place] [address], [place] [address] Jun, [facility] [address] [id number] [address] [place] [address], [place] [address] Jun, [facility] [address] [id number] [address] [place] [address], [place] [address] Jun, [facility] [address] [id number] [address] [place] [address], [place] [address] Jun, [facility] [address] [id number] [address] [place] [address], [place] [address] Jun, [facility] [address] [id number] [address] [place] [address], [place] [address] 18 May, 2013 [facility] [address] [id number] [address] [place] [address], [place] [phone] 18 May, 2013 [facility] [address] [id number] [address] [place] [address], [place] [address] 13 May, 2013 [facility] [address] [id number] [address] [place] [address], [place] [address] 13 May, 2013 [facility] [address] [id number] [address] [place] [address], [place] [address] 10 Apr, 2013 [facility] [address] [id number] [address] [place] [id number] 10 Apr, 2013 [facility] [address] [facility] [id number] [address] [place] [phone] Apr, [facility] [address] [facility] [id number] [address] [place] [id number] Mar, [facility] [address] [facility] [id number] [address] [place] [phone] Feb, [facility] [address] [facility] [id number] [address] [place] [id number] Jan, [facility] [address] [facility] [id number] [address] [place] [phone] Jan, [facility] [address] [facility] [id number] [address] [place] [phone] Jan, IMMUNIZATIONS No Known Immunizations SOCIAL HISTORY [...]
--- OUTSIDE RECORDS SUMMARY | 2020-01-12 11:25 | XMS REPORT ---
Author Author Cj Agudelo Doctor Organization [facility] Address Unknown Phone Unavailable Care Team Providers Care Service Order Dispatcher Name Role Phone Migration, Doctor Unavailable Unavailable PROBLEMS Type Condition ICD9-CM Code TPR55-UN Code Onset Dates Condition S tatus SNOMED Code Problem Pain in joint, lower leg 719.46 Activ e 797234586 Problem Attention deficit disorder o f childhood 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 314.00 Active 99572125 Problem Essential hypertension, benign 401.1 Active 5708524 Problem Anxiety state, unspecified 300.00 Act disha 377609240 Problem Other and unspecified hyperlipidemia 272.4 Active 19705935 Problem Major depressive disorder, recurrent episode, moderate 296 .32 Active 12451301 Problem PTSD (post-traumatic stress disorder) F43.10 Active 23508225 Problem Generalized anxiety disorder 300.02 A ctive 58307410 Problem Anxiety F41.9 Active 72417288 Problem Depressive disorder, not elsewhere classified 311 Active 07302430 Problem Attention deficit hyperactivity disorder F90.9 Active 095380646 Problem Major depression F32.9 Active 370 017762 Problem Generalized anxiety disorder F41.1 A ctive 02602470 Problem Major depressive disorder, recurrent, moderate F33 .1 Active 18801457 ALLERGIES No Information ENCOUNTERS Encounter Location Date Diagnosis [place] [address] [place] [id number] [address] [place] [address] May, [place] [address] [place] [id number] [address] [place] [address] May, Major depressive disorder, r ecurrent, moderate F33.1 ; Anxiety F41.9 ; PTSD (post-traumatic stress disorder) F43.10 and Neurocognitive disorder R41.9 [place] [place] [id number] [address] [place] [address] Jun, [place] [place] [id number] [address] [place] [address] 16 May, 2016 Generalized anxiety disorder F41.1 ; Major depression F32.9 and Attention deficit hyperactivity disorder F90.9 [facility] [address] [id number] [address] [place] [address] Feb, [facility] [address] [id number] [address] [place] [address] Jan, [facility] [address] [id number] [address] [place] [address] Dec, [facility] [address] [id number] [address] [place] [address] Dec, [facility] [address] [id number] [address] [place] [address] Dec, Generalized anxiety disorder F41.1 ; Major depression F32.9 and Attention deficit hyperactivity disorder F90.9 [facility] [address] [id number] [address] [place] [phone] Oct, [facility] [address] [id number] [address] [place] [phone] Oct, [facility] [address] [id number] [address] [place] [address] Sep, [facility] [address] [id number] [address] [place] [address] Sep, [facility] [address] [id number] [address] [place] [address] Aug, [facility] [address] [id number] [address] [place] [address] Aug, Generalized anxiety disorder F41.1 ; Major depression F32.9 and Attention deficit hyperactivity disorder F90.9 [facility] [address] [id number] [address] [place] [id number] 05 Aug, 2015 [facility] [address] [id number] [address] [place] [address] Aug, [facility] [address] [id number] [address] [place] [address] Jun, [facility] [address] [facility] [id number] [address] [place] [address] Jun, [facility] [address] [facility] [id number] [address] [place] [address] Jun, Attention deficit hyperactiv ity disorder F90.9 ; Generalized anxiety disorder F41.1 and Major depression F32.9 [facility] [address] [facility] [id number] [address] [place] [phone] Jun, [facility] [address] [facility] [id number] [address] [place] [address] Apr, [facility] [address] [facility] [id number] [address] [place] [phone] Mar, [facility] [address] [facility] [id number] [address] [place] [address] Mar, [facility] [address] [place] [id number] [address] [place] [address] Feb, ADD (attention deficit disor nerissa) 314.00 ; Major depressive disorder, recurrent episode, moderate 296.32 and Generalized anxiety disorder 300.02 [facility] [address] [facility] [id number] [address] [place] [phone] Feb, [facility] [address] [facility] [id number] [address] [place] [phone] Feb, [facility] [address] [facility] [id number] [address] [place] [address] Jan, [facility] [address] [facility] [id number] [address] [place] [address] Jan, [facility] [address] [facility] [id number] [address] [place] [phone] Jan, [facility] [address] [facility] [id number] [address] [place] [phone] Jan, [facility] [address] [id number] [address] [place] [phone] 15 Dec, 2014 [facility] [address] [id number] [address] [place] [phone] Dec, [facility] [address] [id number] [address] [place] [address] Dec, [facility] [address] [id number] [address] [place] [address] November, Attention deficit disorder o f childhood 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 314.00 ; Generalized anxiety disorder 300.02 and Major depressive disorder, recurrent episode, moderate 296.32 [facility] [address] [id number] [address] [place] [address] November, [facility] [address] [id number] [address] [place] [address] November, [facility] [address] [facility] [id number] [address] [place] [address] November, Anxiety state 300.00 [facility] [address] [id number] [address] [place] [address] Oct, [facility] [address] [id number] [address] [place] [phone] Oct, [facility] [address] [id number] [address] [place] [phone] Sep, [facility] [address] [id number] [address] [place] [phone] Sep, [facility] [address] [id number] [address] [place] [phone] Sep, [facility] [address] [id number] [address] [place] [phone] Sep, [facility] [address] [id number] [address] [place] [phone] Sep, [facility] [address] [id number] [address] [place] [phone] Sep, [facility] [address] [id number] [address] [place] [address], [place] [address] Aug, [facility] [address] [id number] [address] [place] [address], [place] [address] Aug, [facility] [address] [id number] [address] [place] [address], [place] [address] Aug, [facility] [address] [id number] [address] [place] [address], [place] [address] Aug, 2014 [facility] [address] [id number] [address] [place] [address], [place] [address] Aug, [facility] [address] [id number] [address] [place] [address], [place] [address] Aug, [facility] [address] [id number] [address] [place] [address], [place] [address] Aug, [facility] [address] [id number] [address] [place] [address], [place] [address] Aug, [facility] [address] [id number] [address] [place] [address], [place] [address] Jul, [facility] [address] [id number] [address] [place] [address], [place] [address] Jul, [facility] [address] [id number] [address] [place] [address], [place] [address] Jul, [facility] [address] [id number] [address] [place] [address], [place] [address] Jul, [facility] [address] [id number] [address] [place] [address], [place] [address] Jul, [facility] [address] [id number] [address] [place] [address], [place] [address] Jul, [facility] [address] [id number] [address] [place] [address], [place] [address] Jun, [facility] [address] [id number] [address] [place] [address], [place] [address] 29 Jun, 2014 [facility] [address] [id number] [address] [place] [address], [place] [address] Jun, [facility] [address] [id number] [address] [place] [address], [place] [address] Jun, [facility] [address] [id number] [address] [place] [address], [place] [address] Jun, [facility] [address] [id number] [address] [place] [address], [place] [address] Jun, [facility] [address] [id number] [address] [place] [address], [place] [address] May, [facility] [address] [id number] [address] [place] [address], [place] [address] May, [facility] [address] [id number] [address] [place] [address], [place] [address] May, [facility] [address] [id number] [address] [place] [address], [place] [address] May, [facility] [address] [id number] [address] [place] [address], [place] [address] May, [facility] [address] [id number] [address] [place] [address], [place] [address] May, [facility] [address] [id number] [address] [place] [address], [place] [address] May, [facility] [address] [id number] [address] [place] [address], [place] [address] May, [facility] [address] [id number] [address] [place] [address], [place] [address] May, [facility] [address] [id number] [address] [place] [address], [place] [address] 10 May, 2014 [facility] [address] [id number] [address] [place] [address], [place] [address] Apr, [facility] [address] [id number] [address] [place] [address], [place] [address] Apr, [facility] [address] [id number] [address] [place] [address], [place] [address] Apr, [facility] [address] [id number] [address] [place] [address], [place] [address] Apr, [facility] [address] [id number] [address] [place] [address], [place] [address] Apr, [facility] [address] [id number] [address] [place] [address], [place] [address] Apr, [facility] [address] [id number] [address] [place] [address], [place] [address] Apr, [facility] [address] [id number] [address] [place] [address], [place] [address] Apr, [facility] [address] [id number] [address] [place] [address], [place] [address] 15 Mar, 2014 [facility] [address] [id number] [address] [place] [address], [place] [address] 15 Mar, 2014 [facility] [address] [id number] [address] [place] [phone] Mar, [facility] [address] [id number] [address] [place] [address] Mar, [facility] [address] [id number] [address] [place] [id number] 08 Mar, 2014 [facility] [address] [id number] [address] [place] [address], [place] [address] Mar, [facility] [address] [id number] [address] [place] [address], [place] [address] Feb, [facility] [address] [id number] [address] [place] [phone] Feb, [facility] [address] [id number] [address] [place] [address] Feb, [facility] [address] [id number] [facility] [place] [address] Feb, [facility] [address] [id number] [address] [place] [address], [place] [address] Feb, [facility] [address] [id number] [address] [place] [address], [place] [address] Feb, [facility] [address] [id number] [address] [place] [address], [place] [address] Jan, [facility] [address] [id number] [address] [place] [address], [place] [address] Jan, [facility] [address] [id number] [address] [place] [address], [place] [address] Jan, [facility] [address] [id number] [address] [place] [address], [place] [address] Jan, [facility] [address] [id number] [address] [place] [address], [place] [address] Jan, [facility] [address] [id number] [address] [place] [address], [place] [address] Jan, [facility] [address] [id number] [address] [place] [address], [place] [address] Dec, [facility] [address] [id number] [address] [place] [address], [place] [address] Dec, [facility] [address] [id number] [address] [place] [address], [place] [address] Dec, [facility] [address] [id number] [address] [place] [address], [place] [address] Dec, [facility] [address] [id number] [address] [place] [address], [place] [address] Dec, [facility] [address] [id number] [address] [place] [address], [place] [address] November, [facility] [address] [id number] [facility] [place] [address] November, [facility] [address] [id number] [facility] [place] [address] November, [facility] [address] [id number] [address] [place] [address], [place] [address] November, [facility] [address] [id number] [address] [place] [address], [place] [address] November, [facility] [address] [id number] [address] [place] [address], [place] [address] November, [facility] [address] [id number] [address] [place] [address], [place] [address] November, [facility] [address] [id number] [address] [place] [address], [place] [address] November, [facility] [address] [id number] [address] [place] [address], [place] [address] Oct, [facility] [address] [id number] [address] [place] [address], [place] [address] Oct, [facility] [address] [id number] [address] [place] [address], [place] [address] Oct, [facility] [address] [id number] [address] [place] [address], [place] [address] Oct, [facility] [address] [id number] [address] [place] [address], [place] [address] Oct, [facility] [address] [id number] [address] [place] [address], [place] [address] Oct, [facility] [address] [id number] [address] [place] [address], [place] [address] Sep, [facility] [address] [id number] [address] [place] [address], [place] [address] Sep, [facility] [address] [id number] [address] [place] [address], [place] [address] Sep, [facility] [address] [id number] [facility] [place] [address] Sep, [facility] [address] [id number] [address] [place] [address], [place] [address] Sep, [facility] [address] [id number] [address] [place] [address], [place] [address] Sep, [facility] [address] [id number] [address] [place] [address], [place] [address] Aug, [facility] [address] [id number] [address] [place] [address], [place] [address] Aug, [facility] [address] [id number] [address] [place] [address], [place] [address] Jul, [facility] [address] [id number] [address] [place] [address], [place] [address] Jul, [facility] [address] [id number] [address] [place] [address], [place] [address] Jul, [facility] [address] [id number] [address] [place] [address], [place] [address] Jul, [facility] [address] [id number] [address] [place] [address], [place] [address] Jul, [facility] [address] [id number] [address] [place] [address], [place] [address] Jul, [facility] [address] [id number] [address] [place] [address], [place] [address] Jul, [facility] [address] [id number] [address] [place] [address], [place] [address] Jul, [facility] [address] [id number] [address] [place] [address], [place] [address] Jul, [facility] [address] [id number] [address] [place] [address], [place] [address] Jul, [facility] [address] [id number] [address] [place] [address], [place] [address] 07 Jul, 2013 [facility] [address] [id number] [address] [place] [address], [place] [address] 07 Jul, 2013 [facility] [address] [id number] [address] [place] [address], [place] [address] 23 Jun, 2013 [facility] [address] [id number] [address] [place] [address], [place] [address] Jun, [facility] [address] [id number] [address] [place] [address], [place] [address] Jun, [facility] [address] [id number] [address] [place] [address], [place] [address] Jun, [facility] [address] [id number] [address] [place] [address], [place] [address] Jun, [facility] [address] [id number] [address] [place] [address], [place] [address] Jun, [facility] [address] [id number] [address] [place] [address], [place] [address] Jun, [facility] [address] [id number] [address] [place] [address], [place] [address] Jun, [facility] [address] [id number] [address] [place] [address], [place] [address] 18 May, 2013 [facility] [address] [id number] [address] [place] [address], [place] [address] 18 May, 2013 [facility] [address] [id number] [address] [place] [address], [place] [address] 13 May, 2013 [facility] [address] [id number] [address] [place] [address], [place] [address] 13 May, 2013 [facility] [address] [id number] [address] [place] [address], [place] [address] 10 Apr, 2013 [facility] [address] [id number] [address] [place] [address], [place] [phone] 10 Apr, 2013 [facility] [address] [facility] [id number] [address] [place] [phone] Apr, [facility] [address] [facility] [id number] [address] [place] [phone] Mar, [facility] [address] [facility] [id number] [address] [place] [id number] Feb, [facility] [address] [facility] [id number] [address] [place] [id number] Jan, [facility] [address] [facility] [id number] [address] [place] [phone] Jan, [facility] [address] [facility] [id number] [address] [place] [phone] Jan, IMMUNIZATIONS No Known Immunizations SOCIAL HISTORY [...]
--- OUTSIDE RECORDS SUMMARY | 2020-01-12 11:25 | XMS REPORT ---
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 Name Role Phone JUAN JOSÉ PADILLA Unavailable PROBLEMS Type Condition ICD9-CM Code VJR29-HS Code Onset Dates Condition S tatus SNOMED Code Problem Pain in joint, lower leg 719.46 Activ e 885284808 Problem Attention deficit disorder o f childhood 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 314.00 Active 96183159 Problem Essential hypertension, benign 401.1 Active 6624428 Problem Anxiety state, unspecified 300.00 Act disha 315735048 Problem Other and unspecified hyperlipidemia 272.4 Active 41523667 Problem Major depressive disorder, recurrent episode, moderate 296 .32 Active 41363791 Problem PTSD (post-traumatic stress disorder) F43.10 Active 93112361 Problem Generalized anxiety disorder 300.02 A ctive 96477193 Problem Anxiety F41.9 Active 91670318 Problem Depressive disorder, not elsewhere classified 311 Active 42320310 Problem Attention deficit hyperactivity disorder F90.9 Active 498953762 Problem Major depression F32.9 Active 370 152933 Problem Generalized anxiety disorder F41.1 A ctive 81266821 Problem Major depressive disorder, recurrent, moderate F33 .1 Active [id number] ALLERGIES No Information ENCOUNTERS Encounter Location Date Diagnosis [facility] [address] [id number] [address] [place] [address] May, [facility] [address] [id number] [address] [place] [address] May, Major depressive disorder, r ecurrent, moderate F33.1 ; Anxiety F41.9 ; PTSD (post-traumatic stress disorder) F43.10 and Neurocognitive disorder R41.9 [facility] [address] [facility] [id number] [address] [place] [address] Jun, [facility] [address] [id number] [address] [place] [address] May, Generalized anxiety disorder F41.1 ; Major depression F32.9 and Attention deficit hyperactivity disorder F90.9 [facility] [address] [facility] [id number] [address] [place] [address] Feb, [facility] [address] [facility] [id number] [address] [place] [address] Jan, [facility] [address] [facility] [id number] [address] [place] [address] Dec, [facility] [address] [facility] [id number] [address] [place] [address] Dec, [facility] [address] [facility] [id number] [address] [place] [address] Dec, Generalized anxiety disorder F41.1 ; Major depression F32.9 and Attention deficit hyperactivity disorder F90.9 [facility] [address] [facility] [id number] [address] [place] [address] Oct, [facility] [address] [facility] [id number] [address] [place] [address] Oct, [facility] [address] [facility] [id number] [address] [place] [address] Sep, [facility] [address] [facility] [id number] [address] [place] [address] Sep, [facility] [address] [facility] [id number] [address] [place] [address] Aug, [facility] [address] [facility] [id number] [address] [place] [address] Aug, Generalized anxiety disorder F41.1 ; Major depression F32.9 and Attention deficit hyperactivity disorder F90.9 [facility] [address] [facility] [id number] [address] [place] [address] Aug, [facility] [address] [facility] [id number] [address] [place] [address] Aug, [facility] [address] [facility] [id number] [address] [place] [address] Jun, [facility] [address] [facility] [id number] [address] [place] [address] Jun, [facility] [address] [facility] [id number] [address] [place] [address] Jun, Attention deficit hyperactiv ity disorder F90.9 ; Generalized anxiety disorder F41.1 and Major depression F32.9 [facility] [address] [facility] [id number] [address] [place] [address] Jun, [facility] [address] [facility] [id number] [address] [place] [address] Apr, [facility] [address] [facility] [id number] [address] [place] [address] Mar, [facility] [address] [facility] [id number] [address] [place] [address] Mar, [facility] [address] [facility] [id number] [address] [place] [address] Feb, ADD (attention deficit disor nerissa) 314.00 ; Major depressive disorder, recurrent episode, moderate 296.32 and Generalized anxiety disorder 300.02 [facility] [address] [facility] [id number] [address] [place] [address] Feb, [facility] [address] [facility] [id number] [address] [place] [address] Feb, [facility] [address] [facility] [id number] [address] [place] [address] Jan, [facility] [address] [facility] [id number] [address] [place] [address] Jan, [facility] [address] [facility] [id number] [address] [place] [address] Jan, [facility] [address] [facility] [id number] [address] [place] [address] Jan, [facility] [address] [id number] [address] [place] [address] Dec, [facility] [address] [id number] [address] [place] [address] Dec, [facility] [address] [facility] [id number] [address] [place] [address] Dec, [facility] [address] [id number] [address] [place] [address] November, Attention deficit disorder o f childhood 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 314.00 ; Generalized anxiety disorder 300.02 and Major depressive disorder, recurrent episode, moderate 296.32 [facility] [address] [id number] [address] [place] [address] November, [facility] [address] [id number] [address] [place] [address] November, [facility] [address] [id number] [address] [place] [address] November, Anxiety state 300.00 [facility] [address] [id number] [address] [place] [address] Oct, [facility] [address] [facility] [id number] [address] [place] [address] Oct, [facility] [address] [id number] [address] [place] [address] Sep, [facility] [address] [id number] [address] [place] [address] Sep, [facility] [address] [id number] [address] [place] [address] Sep, [facility] [address] [facility] [id number] [address] [place] [address] Sep, [facility] [address] [facility] [id number] [address] [place] [address] Sep, [facility] [address] [id number] [address] [place] [address], [place] [address] Sep, [facility] [address] [id number] [address] [place] [address], [place] [address] Aug, 2014 [facility] [address] [id number] [address] [place] [address], [place] [address] Aug, 2014 [facility] [address] [id number] [address] [place] [address], [place] [address] Aug, 2014 [facility] [address] [id number] [address] [place] [address], [place] [address] Aug, 2014 [facility] [address] [id number] [address] [place] [address], [place] [address] Aug, 2014 [facility] [address] [id number] [address] [place] [address], [place] [address] Aug, [facility] [address] [id number] [address] [place] [address], [place] [address] Aug, [facility] [address] [id number] [address] [place] [address], [place] [address] Aug, [facility] [address] [id number] [address] [place] [address], [place] [address] Jul, [facility] [address] [id number] [address] [place] [address], [place] [address] Jul, [facility] [address] [id number] [address] [place] [address] Jul, [facility] [address] [id number] [address] [place] [address], [place] [address] Jul, [facility] [address] [id number] [address] [place] [address], [place] [address] Jul, [facility] [address] [id number] [address] [place] [address] Jul, [facility] [address] [id number] [address] [place] [address] Jun, [facility] [address] [id number] [address] [place] [address], [place] [address] Jun, [facility] [address] [id number] [address] [place] [address], [place] [address] Jun, [facility] [address] [id number] [address] [place] [address], [place] [address] Jun, [facility] [address] [id number] [address] [place] [address], [place] [address] Jun, [facility] [address] [id number] [address] [place] [address], [place] [address] Jun, [facility] [address] [id number] [address] [place] [address], [place] [address] May, [facility] [address] [id number] [address] [place] [address], [place] [address] May, [facility] [address] [id number] [address] [place] [address], [place] [address] May, [facility] [address] [id number] [address] [place] [address], [place] [address] May, [facility] [address] [id number] [address] [place] [address], [place] [address] May, [facility] [address] [id number] [address] [place] [address], [place] [address] May, [facility] [address] [id number] [address] [place] [address], [place] [address] May, [facility] [address] [id number] [address] [place] [address], [place] [address] May, [facility] [address] [id number] [address] [place] [address], [place] [address] May, [facility] [address] [id number] [address] [place] [address], [place] [address] May, [facility] [address] [id number] [address] [place] [address], [place] [address] Apr, [facility] [address] [id number] [address] [place] [address], [place] [address] Apr, [facility] [address] [id number] [address] [place] [address], [place] [address] Apr, [facility] [address] [id number] [address] [place] [address], [place] [address] Apr, [facility] [address] [id number] [address] [place] [address], [place] [address] Apr, [facility] [address] [id number] [address] [place] [address], [place] [address] Apr, [facility] [address] [id number] [address] [place] [address], [place] [address] Apr, [facility] [address] [id number] [address] [place] [address], [place] [address] Apr, [facility] [address] [id number] [address] [place] [address], [place] [address] 15 Mar, 2014 [facility] [address] [id number] [address] [place] [address], [place] [address] 15 Mar, 2014 [facility] [address] [id number] [address] [place] [address], [place] [address] Mar, [facility] [address] [id number] [address] [place] [address], [place] [address] Mar, [facility] [address] [id number] [address] [place] [address], [place] [address] Mar, [facility] [address] [id number] [address] [place] [address], [place] [address] Mar, [facility] [address] [id number] [address] [place] [address], [place] [address] Feb, [facility] [address] [id number] [address] [place] [address], [place] [address] Feb, [facility] [address] [id number] [facility] [place] [address] Feb, [facility] [address] [id number] [facility] [address] Feb, [facility] [address] [id number] [facility] [place] [address] Feb, [facility] [address] [id number] [address] [place] [address], [place] [address] Feb, [facility] [address] [id number] [address] [place] [address], [place] [address] Jan, [facility] [address] [id number] [address] [place] [address], [place] [address] Jan, [facility] [address] [id number] [address] [place] [address], [place] [address] Jan, [facility] [address] [id number] [address] [place] [address], [place] [address] Jan, [facility] [address] [id number] [address] [place] [address], [place] [address] Jan, [facility] [address] [id number] [address] [place] [address], [place] [address] Jan, [facility] [address] [id number] [address] [place] [address], [place] [address] Dec, [facility] [address] [id number] [address] [place] [address], [place] [address] Dec, [facility] [address] [id number] [address] [place] [address], [place] [address] Dec, [facility] [address] [id number] [address] [place] [address], [place] [address] Dec, [facility] [address] [id number] [address] [place] [address], [place] [address] Dec, [facility] [address] [id number] [address] [place] [address], [place] [address] November, [facility] [address] [id number] [address] [place] [address], [place] [address] November, [facility] [address] [id number] [address] [place] [address], [place] [address] November, [facility] [address] [id number] [address] [place] [address], [place] [address] November, [facility] [address] [id number] [address] [place] [address], [place] [address] November, [facility] [address] [id number] [address] [place] [address], [place] [address] November, [facility] [address] [id number] [address] [place] [address], [place] [address] November, [facility] [address] [id number] [address] [place] [address], [place] [address] November, [facility] [address] [id number] [address] [place] [address], [place] [address] Oct, [facility] [address] [id number] [address] [place] [address], [place] [address] Oct, [facility] [address] [id number] [address] [place] [address], [place] [address] Oct, [facility] [address] [id number] [address] [place] [address], [place] [address] Oct, [facility] [address] [id number] [address] [place] [address], [place] [address] Oct, [facility] [address] [id number] [address] [place] [address], [place] [address] Oct, [facility] [address] [id number] [address] [place] [address], [place] [address] Sep, [facility] [address] [id number] [address] [place] [address], [place] [address] Sep, [facility] [address] [id number] [facility] [address] 06 Sep, 2013 [facility] [address] [id number] [address] [place] [address], [place] [address] 06 Sep, 2013 [facility] [address] [id number] [address] [place] [address], [place] [address] 04 Sep, 2013 [facility] [address] [id number] [address] [place] [address], [place] [address] Sep, [facility] [address] [id number] [address] [place] [address], [place] [address] Aug, [facility] [address] [id number] [address] [place] [address], [place] [address] Aug, [facility] [address] [id number] [address] [place] [address], [place] [address] Jul, [facility] [address] [id number] [address] [place] [address], [place] [address] Jul, [facility] [address] [id number] [address] [place] [address], [place] [address] Jul, [facility] [address] [id number] [address] [place] [address], [place] [address] Jul, [facility] [address] [id number] [address] [place] [address], [place] [address] Jul, [facility] [address] [id number] [address] [place] [address], [place] [address] Jul, [facility] [address] [id number] [address] [place] [address], [place] [address] Jul, [facility] [address] [id number] [address] [place] [address], [place] [address] Jul, [facility] [address] [id number] [address] [place] [address], [place] [address] Jul, [facility] [address] [id number] [address] [place] [address], [place] [address] Jul, [facility] [address] [id number] [address] [place] [address], [place] [address] Jul, [facility] [address] [id number] [address] [place] [address], [place] [address] Jul, [facility] [address] [id number] [address] [place] [address], [place] [address] Jun, [facility] [address] [id number] [address] [place] [address], [place] [address] Jun, [facility] [address] [id number] [address] [place] [address], [place] [address] Jun, [facility] [address] [id number] [address] [place] [address], [place] [address] Jun, [facility] [address] [id number] [address] [place] [address], [place] [address] Jun, [facility] [address] [id number] [address] [place] [address], [place] [address] Jun, [facility] [address] [id number] [address] [place] [address], [place] [address] Jun, [facility] [address] [id number] [address] [place] [address], [place] [address] Jun, [facility] [address] [id number] [address] [place] [address], [place] [address] 18 May, 2013 [facility] [address] [id number] [address] [place] [address], [place] [address] 18 May, 2013 [facility] [address] [id number] [address] [place] [address], [place] [address] 13 May, 2013 [facility] [address] [id number] [address] [place] [address], [place] [address] 13 May, 2013 [facility] [address] [id number] [address] [place] [address], [place] [address] 10 Apr, 2013 [facility] [address] [id number] [address] [place] [id number] 10 Apr, 2013 [facility] [address] [facility] [id number] [address] [place] [id number] Apr, [facility] [address] [facility] [id number] [address] [place] [id number] Mar, [facility] [address] [facility] [id number] [address] [place] [id number] Feb, [facility] [address] [facility] [id number] [address] [place] [id number] Jan, [facility] [address] [facility] [id number] [address] [place] [phone] Jan, [facility] [address] [facility] [id number] [address] [place] [phone] Jan, IMMUNIZATIONS No Known Immunizations SOCIAL HISTORY [...]
--- OUTSIDE RECORDS SUMMARY | 2020-01-12 11:25 | XMS REPORT ---
Author Author Cj PADILLA Organization [facility] Address [address] [place] [address] Care Team Providers Care [employer] Name Role Phone JUAN JOSÉ PADILLA Unavailable PROBLEMS Type Condition ICD9-CM Code HMA81-BO Code Onset Dates Condition S tatus SNOMED Code Problem Pain in joint, lower leg 719.46 Activ e 603038411 Problem Attention deficit disorder o f childhood 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 314.00 Active 30290014 Problem Essential hypertension, benign 401.1 Active 9686193 Problem Anxiety state, unspecified 300.00 Act disha 059332585 Problem Other and unspecified hyperlipidemia 272.4 Active 56012427 Problem Major depressive disorder, recurrent episode, moderate 296 .32 Active 33719447 Problem PTSD (post-traumatic stress disorder) F43.10 Active 25217079 Problem Generalized anxiety disorder 300.02 A ctive 98587411 Problem Anxiety F41.9 Active 09024440 Problem Depressive disorder, not elsewhere classified 311 Active 39387056 Problem Attention deficit hyperactivity disorder F90.9 Active 906507611 Problem Major depression F32.9 Active 370 671979 Problem Generalized anxiety disorder F41.1 A ctive 93549282 Problem Major depressive disorder, recurrent, moderate F33 .1 Active 92048874 ALLERGIES No Information ENCOUNTERS Encounter Location Date Diagnosis [facility] [address] [id number] [address] [place] [address] May, [facility] [address] [id number] [address] [place] [address] May, Major depressive disorder, r ecurrent, moderate F33.1 ; Anxiety F41.9 ; PTSD (post-traumatic stress disorder) F43.10 and Neurocognitive disorder R41.9 [facility] [address] [facility] [id number] [address] [place] [address] Jun, [facility] [address] [id number] [address] [place] [address] May, Generalized anxiety disorder F41.1 ; Major depression F32.9 and Attention deficit hyperactivity disorder F90.9 [facility] [address] [facility] [id number] [address] [place] [address] Feb, [facility] [address] [facility] [id number] [address] [place] [address] Jan, [facility] [address] [facility] [id number] [address] [place] [address] Dec, [facility] [address] [facility] [id number] [address] [place] [address] Dec, [facility] [address] [facility] [id number] [address] [place] [address] Dec, Generalized anxiety disorder F41.1 ; Major depression F32.9 and Attention deficit hyperactivity disorder F90.9 [facility] [address] [facility] [id number] [address] [place] [address] Oct, [facility] [address] [facility] [id number] [address] [place] [address] Oct, [facility] [address] [facility] [id number] [address] [place] [address] Sep, [facility] [address] [facility] [id number] [address] [place] [address] Sep, [facility] [address] [facility] [id number] [address] [place] [address] Aug, [facility] [address] [facility] [id number] [address] [place] [address] Aug, Generalized anxiety disorder F41.1 ; Major depression F32.9 and Attention deficit hyperactivity disorder F90.9 [facility] [address] [facility] [id number] [address] [place] [address] Aug, [facility] [address] [facility] [id number] [address] [place] [address] Aug, [facility] [address] [facility] [id number] [address] [place] [address] Jun, [facility] [address] [facility] [id number] [address] [place] [address] Jun, [facility] [address] [facility] [id number] [address] [place] [address] Jun, Attention deficit hyperactiv ity disorder F90.9 ; Generalized anxiety disorder F41.1 and Major depression F32.9 [facility] [address] [facility] [id number] [address] [place] [address] Jun, [facility] [address] [facility] [id number] [address] [place] [address] Apr, [facility] [address] [facility] [id number] [address] [place] [address] Mar, [facility] [address] [facility] [id number] [address] [place] [address] Mar, [facility] [address] [facility] [id number] [address] [place] [address] Feb, ADD (attention deficit disor nerissa) 314.00 ; Major depressive disorder, recurrent episode, moderate 296.32 and Generalized anxiety disorder 300.02 [facility] [address] [facility] [id number] [address] [place] [address] Feb, [facility] [address] [facility] [id number] [address] [place] [address] Feb, [facility] [address] [facility] [id number] [address] [place] [address] Jan, [facility] [address] [facility] [id number] [address] [place] [address] Jan, [facility] [address] [facility] [id number] [address] [place] [address] Jan, [facility] [address] [facility] [id number] [address] [place] [address] Jan, [facility] [address] [id number] [address] [place] [address] Dec, [facility] [address] [id number] [address] [place] [address] Dec, [facility] [address] [facility] [id number] [address] [place] [address] Dec, [facility] [address] [id number] [address] [place] [address] November, Attention deficit disorder o f childhood 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 314.00 ; Generalized anxiety disorder 300.02 and Major depressive disorder, recurrent episode, moderate 296.32 [facility] [address] [id number] [address] [place] [address] November, [facility] [address] [id number] [address] [place] [address] November, [facility] [address] [id number] [address] [place] [address] November, Anxiety state 300.00 [facility] [address] [id number] [address] [place] [address] Oct, [facility] [address] [facility] [id number] [address] [place] [address] Oct, [facility] [address] [id number] [address] [place] [address] Sep, [facility] [address] [id number] [address] [place] [address] Sep, [facility] [address] [id number] [address] [place] [address] Sep, [facility] [address] [facility] [id number] [address] [place] [address] Sep, [facility] [address] [facility] [id number] [address] [place] [address] Sep, [facility] [address] [id number] [address] [place] [address], [place] [address] Sep, [facility] [address] [id number] [address] [place] [address], [place] [address] Aug, 2014 [facility] [address] [id number] [address] [place] [address], [place] [address] Aug, 2014 [facility] [address] [id number] [address] [place] [address], [place] [address] Aug, 2014 [facility] [address] [id number] [address] [place] [address], [place] [address] Aug, 2014 [facility] [address] [id number] [address] [place] [address], [place] [address] Aug, 2014 [facility] [address] [id number] [address] [place] [address], [place] [address] Aug, [facility] [address] [id number] [address] [place] [address], [place] [address] Aug, [facility] [address] [id number] [address] [place] [address], [place] [address] Aug, [facility] [address] [id number] [address] [place] [address], [place] [address] Jul, [facility] [address] [id number] [address] [place] [address], [place] [address] Jul, [facility] [address] [id number] [address] [place] [address] Jul, [facility] [address] [id number] [address] [place] [address], [place] [address] Jul, [facility] [address] [id number] [address] [place] [address], [place] [address] Jul, [facility] [address] [id number] [address] [place] [address] Jul, [facility] [address] [id number] [address] [place] [address] Jun, [facility] [address] [id number] [address] [place] [address], [place] [address] Jun, [facility] [address] [id number] [address] [place] [address], [place] [address] Jun, [facility] [address] [id number] [address] [place] [address], [place] [address] Jun, [facility] [address] [id number] [address] [place] [address], [place] [address] Jun, [facility] [address] [id number] [address] [place] [address], [place] [address] Jun, [facility] [address] [id number] [address] [place] [address], [place] [address] May, [facility] [address] [id number] [address] [place] [address], [place] [address] May, [facility] [address] [id number] [address] [place] [address], [place] [address] May, [facility] [address] [id number] [address] [place] [address], [place] [address] May, [facility] [address] [id number] [address] [place] [address], [place] [address] May, [facility] [address] [id number] [address] [place] [address], [place] [address] May, [facility] [address] [id number] [address] [place] [address], [place] [address] May, [facility] [address] [id number] [address] [place] [address], [place] [address] May, [facility] [address] [id number] [address] [place] [address], [place] [address] May, [facility] [address] [id number] [address] [place] [address], [place] [address] May, [facility] [address] [id number] [address] [place] [address], [place] [address] Apr, [facility] [address] [id number] [address] [place] [address], [place] [address] Apr, [facility] [address] [id number] [address] [place] [address], [place] [address] Apr, [facility] [address] [id number] [address] [place] [address], [place] [address] Apr, [facility] [address] [id number] [address] [place] [address], [place] [address] Apr, [facility] [address] [id number] [address] [place] [address], [place] [address] Apr, [facility] [address] [id number] [address] [place] [address], [place] [address] Apr, [facility] [address] [id number] [address] [place] [address], [place] [address] Apr, [facility] [address] [id number] [address] [place] [address], [place] [address] 15 Mar, 2014 [facility] [address] [id number] [address] [place] [address], [place] [address] 15 Mar, 2014 [facility] [address] [id number] [address] [place] [address], [place] [address] Mar, [facility] [address] [id number] [address] [place] [address], [place] [address] Mar, [facility] [address] [id number] [address] [place] [address], [place] [address] Mar, [facility] [address] [id number] [address] [place] [address], [place] [address] Mar, [facility] [address] [id number] [address] [place] [address], [place] [address] Feb, [facility] [address] [id number] [address] [place] [address], [place] [address] Feb, [facility] [address] [id number] [facility] [place] [address] Feb, [facility] [address] [id number] [facility] [place] [address] Feb, [facility] [address] [id number] [facility] [place] [address] Feb, [facility] [address] [id number] [address] [place] [address], [place] [address] Feb, [facility] [address] [id number] [address] [place] [address], [place] [address] Jan, [facility] [address] [id number] [address] [place] [address], [place] [address] Jan, [facility] [address] [id number] [address] [place] [address], [place] [address] Jan, [facility] [address] [id number] [address] [place] [address], [place] [address] Jan, [facility] [address] [id number] [address] [place] [address], [place] [address] Jan, [facility] [address] [id number] [address] [place] [address], [place] [address] Jan, [facility] [address] [id number] [address] [place] [address], [place] [address] Dec, [facility] [address] [id number] [address] [place] [address], [place] [address] Dec, [facility] [address] [id number] [address] [place] [address], [place] [address] Dec, [facility] [address] [id number] [address] [place] [address], [place] [address] Dec, [facility] [address] [id number] [address] [place] [address], [place] [address] Dec, [facility] [address] [id number] [address] [place] [address], [place] [address] November, [facility] [address] [id number] [address] [place] [address], [place] [address] November, [facility] [address] [id number] [address] [place] [address], [place] [address] November, [facility] [address] [id number] [address] [place] [address], [place] [address] November, [facility] [address] [id number] [address] [place] [address], [place] [address] November, [facility] [address] [id number] [address] [place] [address], [place] [address] November, [facility] [address] [id number] [address] [place] [address], [place] [address] November, [facility] [address] [id number] [address] [place] [address], [place] [address] November, [facility] [address] [id number] [address] [place] [address], [place] [address] Oct, [facility] [address] [id number] [address] [place] [address], [place] [address] Oct, [facility] [address] [id number] [address] [place] [address], [place] [address] Oct, [facility] [address] [id number] [address] [place] [address], [place] [address] Oct, [facility] [address] [id number] [address] [place] [address], [place] [address] Oct, [facility] [address] [id number] [address] [place] [address], [place] [address] Oct, [facility] [address] [id number] [address] [place] [address], [place] [address] Sep, [facility] [address] [id number] [address] [place] [address], [place] [address] Sep, [facility] [address] [id number] [facility] [place] [address] 06 Sep, 2013 [facility] [address] [id number] [address] [place] [address], [place] [address] 06 Sep, 2013 [facility] [address] [id number] [address] [place] [address], [place] [address] 04 Sep, 2013 [facility] [address] [id number] [address] [place] [address], [place] [address] Sep, [facility] [address] [id number] [address] [place] [address], [place] [address] Aug, [facility] [address] [id number] [address] [place] [address], [place] [address] Aug, [facility] [address] [id number] [address] [place] [address], [place] [address] Jul, [facility] [address] [id number] [address] [place] [address], [place] [address] Jul, [facility] [address] [id number] [address] [place] [address], [place] [address] Jul, [facility] [address] [id number] [address] [place] [address], [place] [address] Jul, [facility] [address] [id number] [address] [place] [address], [place] [address] Jul, [facility] [address] [id number] [address] [place] [address], [place] [address] Jul, [facility] [address] [id number] [address] [place] [address], [place] [address] Jul, [facility] [address] [id number] [address] [place] [address], [place] [address] Jul, [facility] [address] [id number] [address] [place] [address], [place] [address] Jul, [facility] [address] [id number] [address] [place] [address], [place] [address] Jul, [facility] [address] [id number] [address] [place] [address], [place] [address] Jul, [facility] [address] [id number] [address] [place] [address], [place] [address] Jul, [facility] [address] [id number] [address] [place] [address], [place] [address] Jun, [facility] [address] [id number] [address] [place] [address], [place] [address] Jun, [facility] [address] [id number] [address] [place] [address], [place] [address] Jun, [facility] [address] [id number] [address] [place] [address], [place] [address] Jun, [facility] [address] [id number] [address] [place] [address], [place] [address] Jun, [facility] [address] [id number] [address] [place] [address], [place] [address] Jun, [facility] [address] [id number] [address] [place] [address], [place] [address] Jun, [facility] [address] [id number] [address] [place] [address], [place] [address] Jun, [facility] [address] [id number] [address] [place] [address], [place] [address] 18 May, 2013 [facility] [address] [id number] [address] [place] [address], [place] [address] 18 May, 2013 [facility] [address] [id number] [address] [place] [address], [place] [address] 13 May, 2013 [facility] [address] [id number] [address] [place] [address], [place] [address] 13 May, 2013 [facility] [address] [id number] [address] [place] [address], [place] [address] 10 Apr, 2013 [facility] [address] [id number] [address] [place] [address] 10 Apr, 2013 [facility] [address] [facility] [id number] [address] [place] [address] Apr, [facility] [address] [facility] [id number] [address] [place] [address] Mar, [facility] [address] [facility] [id number] [address] [place] [address] Feb, [facility] [address] [facility] [id number] [address] [place] [phone] Jan, [facility] [address] [facility] [id number] [address] [place] [phone] Jan, [facility] [address] [facility] [id number] [address] [place] [phone] Jan, IMMUNIZATIONS No Known Immunizations SOCIAL HISTORY [...]
--- OUTSIDE RECORDS SUMMARY | 2020-01-12 11:25 | XMS REPORT ---
Author Author Cj Mcdermott Organization [facility] Address Unknown Care Team Providers Care Reservations Clerk Name Role Phone JULIO Mcdermott Unavailable PROBLEMS Type Condition ICD9-CM Code [id number] Code Onset Dates Condition S tatus SNOMED Code Problem Pain in joint, lower leg 719.46 Activ e 883167952 Problem Attention deficit disorder o f childhood 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 314.00 Active 01312410 Problem Essential hypertension, benign 401.1 Active 4501732 Problem Anxiety state, unspecified 300.00 Act disha 896293324 Problem Other and unspecified hyperlipidemia 272.4 Active 83135546 Problem Major depressive disorder, recurrent episode, moderate 296 .32 Active 33875808 Problem PTSD (post-traumatic stress disorder) F43.10 Active 54969573 Problem Generalized anxiety disorder 300.02 A ctive 03726400 Problem Anxiety F41.9 Active 66971645 Problem Depressive disorder, not elsewhere classified 311 Active 58033348 Problem Attention deficit hyperactivity disorder F90.9 Active 764944674 Problem Major depression F32.9 Active 370 468087 Problem Generalized anxiety disorder F41.1 A ctive 83908972 Problem Major depressive disorder, recurrent, moderate F33 .1 Active [id number] ALLERGIES No Information ENCOUNTERS Encounter Location Date Diagnosis [facility] [address] [id number] [address] [place] [address] May, [facility] [address] [id number] [address] [place] [address] May, Major depressive disorder, r ecurrent, moderate F33.1 ; Anxiety F41.9 ; PTSD (post-traumatic stress disorder) F43.10 and Neurocognitive disorder R41.9 [facility] [address] [facility] [id number] [address] [place] [address] Jun, [facility] [address] [id number] [address] [place] [address] May, Generalized anxiety disorder F41.1 ; Major depression F32.9 and Attention deficit hyperactivity disorder F90.9 [facility] [address] [facility] [id number] [address] [place] [address] Feb, [facility] [address] [facility] [id number] [address] [place] [address] Jan, [facility] [address] [facility] [id number] [address] [place] [address] Dec, [facility] [address] [facility] [id number] [address] [place] [address] Dec, [facility] [address] [facility] [id number] [address] [place] [address] Dec, Generalized anxiety disorder F41.1 ; Major depression F32.9 and Attention deficit hyperactivity disorder F90.9 [facility] [address] [facility] [id number] [address] [place] [address] Oct, [facility] [address] [facility] [id number] [address] [place] [address] Oct, [facility] [address] [facility] [id number] [address] [place] [address] Sep, [facility] [address] [facility] [id number] [address] [place] [address] Sep, [facility] [address] [facility] [id number] [address] [place] [address] Aug, [facility] [address] [facility] [id number] [address] [place] [address] Aug, Generalized anxiety disorder F41.1 ; Major depression F32.9 and Attention deficit hyperactivity disorder F90.9 [facility] [address] [facility] [id number] [address] [place] [address] Aug, [facility] [address] [facility] [id number] [address] [place] [address] Aug, [facility] [address] [facility] [id number] [address] [place] [address] Jun, [facility] [address] [facility] [id number] [address] [place] [address] Jun, [facility] [address] [facility] [id number] [address] [place] [address] Jun, Attention deficit hyperactiv ity disorder F90.9 ; Generalized anxiety disorder F41.1 and Major depression F32.9 [facility] [address] [facility] [id number] [address] [place] [address] Jun, [facility] [address] [facility] [id number] [address] [place] [address] Apr, [facility] [address] [facility] [id number] [address] [place] [address] Mar, [facility] [address] [facility] [id number] [address] [place] [address] Mar, [facility] [address] [facility] [id number] [address] [place] [address] Feb, ADD (attention deficit disor nerissa) 314.00 ; Major depressive disorder, recurrent episode, moderate 296.32 and Generalized anxiety disorder 300.02 [facility] [address] [facility] [id number] [address] [place] [address] Feb, [facility] [address] [facility] [id number] [address] [place] [address] Feb, [facility] [address] [facility] [id number] [address] [place] [address] Jan, [facility] [address] [facility] [id number] [address] [place] [address] Jan, [facility] [address] [facility] [id number] [address] [place] [address] Jan, [facility] [address] [facility] [id number] [address] [place] [address] Jan, [facility] [address] [id number] [address] [place] [address] Dec, [facility] [address] [id number] [address] [place] [address] Dec, [facility] [address] [facility] [id number] [address] [place] [address] Dec, [facility] [address] [id number] [address] [place] [address] November, Attention deficit disorder o f childhood 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 314.00 ; Generalized anxiety disorder 300.02 and Major depressive disorder, recurrent episode, moderate 296.32 [facility] [address] [id number] [address] [place] [address] November, [facility] [address] [id number] [address] [place] [address] November, [facility] [address] [id number] [address] [place] [address] November, Anxiety state 300.00 [facility] [address] [id number] [address] [place] [address] Oct, [facility] [address] [facility] [id number] [address] [place] [address] Oct, [facility] [address] [id number] [address] [place] [address] Sep, [facility] [address] [id number] [address] [place] [address] Sep, [facility] [address] [id number] [address] [place] [address] Sep, [facility] [address] [facility] [id number] [address] [place] [address] Sep, [facility] [address] [facility] [id number] [address] [place] [address] Sep, [facility] [address] [id number] [address] [place] [address], [place] [address] Sep, [facility] [address] [id number] [address] [place] [address], [place] [address] Aug, 2014 [facility] [address] [id number] [address] [place] [address], [place] [address] Aug, 2014 [facility] [address] [id number] [address] [place] [address], [place] [address] Aug, 2014 [facility] [address] [id number] [address] [place] [address], [place] [address] Aug, 2014 [facility] [address] [id number] [address] [place] [address], [place] [address] Aug, 2014 [facility] [address] [id number] [address] [place] [address], [place] [address] Aug, [facility] [address] [id number] [address] [place] [address], [place] [address] Aug, [facility] [address] [id number] [address] [place] [address], [place] [address] Aug, [facility] [address] [id number] [address] [place] [address], [place] [address] Jul, [facility] [address] [id number] [address] [place] [address], [place] [address] Jul, [facility] [address] [id number] [address] [place] [address] Jul, [facility] [address] [id number] [address] [place] [address], [place] [address] Jul, [facility] [address] [id number] [address] [place] [address], [place] [address] Jul, [facility] [address] [id number] [address] [place] [address] Jul, [facility] [address] [id number] [address] [place] [address] Jun, [facility] [address] [id number] [address] [place] [address], [place] [address] Jun, [facility] [address] [id number] [address] [place] [address], [place] [address] Jun, [facility] [address] [id number] [address] [place] [address], [place] [address] Jun, [facility] [address] [id number] [address] [place] [address], [place] [address] Jun, [facility] [address] [id number] [address] [place] [address], [place] [address] Jun, [facility] [address] [id number] [address] [place] [address], [place] [address] May, [facility] [address] [id number] [address] [place] [address], [place] [address] May, [facility] [address] [id number] [address] [place] [address], [place] [address] May, [facility] [address] [id number] [address] [place] [address], [place] [address] May, [facility] [address] [id number] [address] [place] [address], [place] [address] May, [facility] [address] [id number] [address] [place] [address], [place] [address] May, [facility] [address] [id number] [address] [place] [address], [place] [address] May, [facility] [address] [id number] [address] [place] [address], [place] [address] May, [facility] [address] [id number] [address] [place] [address], [place] [address] May, [facility] [address] [id number] [address] [place] [address], [place] [address] May, [facility] [address] [id number] [address] [place] [address], [place] [address] Apr, [facility] [address] [id number] [address] [place] [address], [place] [address] Apr, [facility] [address] [id number] [address] [place] [address], [place] [address] Apr, [facility] [address] [id number] [address] [place] [address], [place] [address] Apr, [facility] [address] [id number] [address] [place] [address], [place] [address] Apr, [facility] [address] [id number] [address] [place] [address], [place] [address] Apr, [facility] [address] [id number] [address] [place] [address], [place] [address] Apr, [facility] [address] [id number] [address] [place] [address], [place] [address] Apr, [facility] [address] [id number] [address] [place] [address], [place] [address] 15 Mar, 2014 [facility] [address] [id number] [address] [place] [address], [place] [address] 15 Mar, 2014 [facility] [address] [id number] [address] [place] [address], [place] [address] Mar, [facility] [address] [id number] [address] [place] [address], [place] [address] Mar, [facility] [address] [id number] [address] [place] [address], [place] [address] Mar, [facility] [address] [id number] [address] [place] [address], [place] [address] Mar, [facility] [address] [id number] [address] [place] [address], [place] [address] Feb, [facility] [address] [id number] [address] [place] [address], [place] [address] Feb, [facility] [address] [id number] [facility] [place] [address] Feb, [facility] [address] [id number] [facility] [place] [address] Feb, [facility] [address] [id number] [facility] [place] [address] Feb, [facility] [address] [id number] [address] [place] [address], [place] [address] Feb, [facility] [address] [id number] [address] [place] [address], [place] [address] Jan, [facility] [address] [id number] [address] [place] [address], [place] [address] Jan, [facility] [address] [id number] [address] [place] [address], [place] [address] Jan, [facility] [address] [id number] [address] [place] [address], [place] [address] Jan, [facility] [address] [id number] [address] [place] [address], [place] [address] Jan, [facility] [address] [id number] [address] [place] [address], [place] [address] Jan, [facility] [address] [id number] [address] [place] [address], [place] [address] Dec, [facility] [address] [id number] [address] [place] [address], [place] [address] Dec, [facility] [address] [id number] [address] [place] [address], [place] [address] Dec, [facility] [address] [id number] [address] [place] [address], [place] [address] Dec, [facility] [address] [id number] [address] [place] [address], [place] [address] Dec, [facility] [address] [id number] [address] [place] [address], [place] [address] November, [facility] [address] [id number] [address] [place] [address], [place] [address] November, [facility] [address] [id number] [address] [place] [address], [place] [address] November, [facility] [address] [id number] [address] [place] [address], [place] [address] November, [facility] [address] [id number] [address] [place] [address], [place] [address] November, [facility] [address] [id number] [address] [place] [address], [place] [address] November, [facility] [address] [id number] [address] [place] [address], [place] [address] November, [facility] [address] [id number] [address] [place] [address], [place] [address] November, [facility] [address] [id number] [address] [place] [address], [place] [address] Oct, [facility] [address] [id number] [address] [place] [address], [place] [address] Oct, [facility] [address] [id number] [address] [place] [address], [place] [address] Oct, [facility] [address] [id number] [address] [place] [address], [place] [address] Oct, [facility] [address] [id number] [address] [place] [address], [place] [address] Oct, [facility] [address] [id number] [address] [place] [address], [place] [address] Oct, [facility] [address] [id number] [address] [place] [address], [place] [address] Sep, [facility] [address] [id number] [address] [place] [address], [place] [address] Sep, [facility] [address] [id number] [facility] [place] [address] 06 Sep, 2013 [facility] [address] [id number] [address] [place] [address], [place] [address] 06 Sep, 2013 [facility] [address] [id number] [address] [place] [address], [place] [address] 04 Sep, 2013 [facility] [address] [id number] [address] [place] [address], [place] [address] Sep, [facility] [address] [id number] [address] [place] [address], [place] [address] Aug, [facility] [address] [id number] [address] [place] [address], [place] [address] Aug, [facility] [address] [id number] [address] [place] [address], [place] [address] Jul, [facility] [address] [id number] [address] [place] [address], [place] [address] Jul, [facility] [address] [id number] [address] [place] [address], [place] [address] Jul, [facility] [address] [id number] [address] [place] [address], [place] [address] Jul, [facility] [address] [id number] [address] [place] [address], [place] [address] Jul, [facility] [address] [id number] [address] [place] [address], [place] [address] Jul, [facility] [address] [id number] [address] [place] [address], [place] [address] Jul, [facility] [address] [id number] [address] [place] [address], [place] [address] Jul, [facility] [address] [id number] [address] [place] [address], [place] [address] Jul, [facility] [address] [id number] [address] [place] [address], [place] [address] Jul, [facility] [address] [id number] [address] [place] [address], [place] [address] Jul, [facility] [address] [id number] [address] [place] [address], [place] [address] Jul, [facility] [address] [id number] [address] [place] [address], [place] [address] Jun, [facility] [address] [id number] [address] [place] [address], [place] [address] Jun, [facility] [address] [id number] [address] [place] [address], [place] [address] Jun, [facility] [address] [id number] [address] [place] [address], [place] [address] Jun, [facility] [address] [id number] [address] [place] [address], [place] [address] Jun, [facility] [address] [id number] [address] [place] [address], [place] [address] Jun, [facility] [address] [id number] [address] [place] [address], [place] [id number] Jun, [facility] [address] [id number] [address] [place] [address], [place] [id number] Jun, [facility] [address] [id number] [address] [place] [address], [place] [id number] 18 May, 2013 [facility] [address] [id number] [address] [place] [address], [place] [id number] 18 May, 2013 [facility] [address] [id number] [address] [place] [address], [place] [id number] 13 May, 2013 [facility] [address] [id number] [address] [place] [address], [place] [id number] 13 May, 2013 [facility] [address] [id number] [address] [place] [address], [place] [id number] 10 Apr, 2013 [facility] [address] [id number] [address] [place] [id number] 10 Apr, 2013 [facility] [address] [facility] [id number] [address] [place] [id number] Apr, [facility] [address] [facility] [id number] [address] [place] [id number] Mar, [facility] [address] [facility] [id number] [address] [place] [id number] Feb, [facility] [address] [facility] [id number] [address] [place] [id number] Jan, [facility] [address] [facility] [id number] [address] [place] [id number] Jan, [facility] [address] [facility] [id number] [address] [place] [phone] Jan, IMMUNIZATIONS No Known Immunizations SOCIAL HISTORY [...]
--- OUTSIDE RECORDS SUMMARY | 2020-01-12 11:25 | XMS REPORT ---
Author Author Cj Agudelo Doctor Organization [facility] Address Unknown Phone Unavailable Care Team Providers Care Surveillance Sensor Officer Name Role Phone Migration, Doctor Unavailable Unavailable PROBLEMS Type Condition ICD9-CM Code NCB18-MU Code Onset Dates Condition S tatus SNOMED Code Problem Pain in joint, lower leg 719.46 Activ e 531985345 Problem Attention deficit disorder o f childhood 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 314.00 Active 99661919 Problem Essential hypertension, benign 401.1 Active 8143946 Problem Anxiety state, unspecified 300.00 Act disha 565541636 Problem Other and unspecified hyperlipidemia 272.4 Active 80085164 Problem Major depressive disorder, recurrent episode, moderate 296 .32 Active 43288956 Problem PTSD (post-traumatic stress disorder) F43.10 Active 25082359 Problem Generalized anxiety disorder 300.02 A ctive 17102274 Problem Anxiety F41.9 Active 84246001 Problem Depressive disorder, not elsewhere classified 311 Active 02938439 Problem Attention deficit hyperactivity disorder F90.9 Active 657767092 Problem Major depression F32.9 Active 370 970379 Problem Generalized anxiety disorder F41.1 A ctive 71216054 Problem Major depressive disorder, recurrent, moderate F33 .1 Active 39041668 ALLERGIES No Information ENCOUNTERS Encounter Location Date Diagnosis [place] [id number] [address] [place] [address] May, [place] [id number] [address] [place] [address] May, Major depressive disorder, r ecurrent, moderate F33.1 ; Anxiety F41.9 ; PTSD (post-traumatic stress disorder) F43.10 and Neurocognitive disorder R41.9 [place] [address] [id number] [place] [address] Jun, [place] [address] [place] [id number] [place] [address] 16 May, 2016 Generalized anxiety disorder F41.1 ; Major depression F32.9 and Attention deficit hyperactivity disorder F90.9 [facility] [address] [id number] [address] [place] [address] Feb, [facility] [address] [id number] [address] [place] [address] Jan, [facility] [address] [id number] [address] [place] [address] Dec, [facility] [address] [id number] [address] [place] [address] Dec, [facility] [address] [id number] [address] [place] [address] Dec, Generalized anxiety disorder F41.1 ; Major depression F32.9 and Attention deficit hyperactivity disorder F90.9 [facility] [address] [id number] [address] [place] [address] Oct, [facility] [address] [id number] [address] [place] [address] Oct, [facility] [address] [id number] [address] [place] [address] Sep, [facility] [address] [id number] [address] [place] [address] Sep, [facility] [address] [id number] [address] [place] [address] Aug, [facility] [address] [id number] [address] [place] [address] Aug, Generalized anxiety disorder F41.1 ; Major depression F32.9 and Attention deficit hyperactivity disorder F90.9 [facility] [address] [id number] [address] [place] [address] 05 Aug, 2015 [facility] [address] [id number] [address] [place] [address] Aug, [facility] [address] [id number] [address] [place] [address] Jun, [facility] [address] [facility] [id number] [address] [place] [address] Jun, [facility] [address] [facility] [id number] [address] [place] [address] Jun, Attention deficit hyperactiv ity disorder F90.9 ; Generalized anxiety disorder F41.1 and Major depression F32.9 [facility] [address] [facility] [id number] [address] [place] [address] Jun, [facility] [address] [facility] [id number] [address] [place] [address] Apr, [facility] [address] [facility] [id number] [address] [place] [address] Mar, [facility] [address] [facility] [id number] [address] [place] [address] Mar, [facility] [id number] [address] [place] [address] Feb, ADD (attention deficit disor nerissa) 314.00 ; Major depressive disorder, recurrent episode, moderate 296.32 and Generalized anxiety disorder 300.02 [facility] [address] [facility] [id number] [address] [place] [address] Feb, [facility] [address] [facility] [id number] [address] [place] [address] Feb, [facility] [address] [facility] [id number] [address] [place] [address] Jan, [facility] [address] [facility] [id number] [address] [place] [address] Jan, [facility] [address] [facility] [id number] [address] [place] [address] Jan, [facility] [address] [facility] [id number] [address] [place] [address] Jan, [facility] [address] [id number] [address] [place] [address] 15 Dec, 2014 [facility] [address] [id number] [address] [place] [address] Dec, [facility] [address] [id number] [address] [place] [address] Dec, [facility] [address] [id number] [address] [place] [address] November, Attention deficit disorder o f childhood 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 314.00 ; Generalized anxiety disorder 300.02 and Major depressive disorder, recurrent episode, moderate 296.32 [facility] [address] [id number] [address] [place] [address] November, [facility] [address] [id number] [address] [place] [address] November, [facility] [address] [facility] [id number] [address] [place] [address] November, Anxiety state 300.00 [facility] [address] [id number] [address] [place] [address] Oct, [facility] [address] [id number] [address] [place] [address] Oct, [facility] [address] [id number] [address] [place] [address] Sep, [facility] [address] [id number] [address] [place] [address] Sep, [facility] [address] [id number] [address] [place] [address] Sep, [facility] [address] [id number] [address] [place] [address] Sep, [facility] [address] [id number] [address] [place] [address] Sep, [facility] [address] [id number] [address] [place] [address] Sep, [facility] [address] [id number] [address] [place] [address], [place] [address] Aug, [facility] [address] [id number] [address] [place] [address], [place] [address] Aug, [facility] [address] [id number] [address] [place] [address], [place] [address] Aug, [facility] [address] [id number] [address] [place] [address], [place] [address] Aug, 2014 [facility] [address] [id number] [address] [place] [address], [place] [address] Aug, [facility] [address] [id number] [address] [place] [address], [place] [address] Aug, [facility] [address] [id number] [address] [place] [address], [place] [address] Aug, [facility] [address] [id number] [address] [place] [address], [place] [address] Aug, [facility] [address] [id number] [address] [place] [address], [place] [address] Jul, [facility] [address] [id number] [address] [place] [address], [place] [address] Jul, [facility] [address] [id number] [address] [place] [address], [place] [address] Jul, [facility] [address] [id number] [address] [place] [address], [place] [address] Jul, [facility] [address] [id number] [address] [place] [address], [place] [address] Jul, [facility] [address] [id number] [address] [place] [address], [place] [address] Jul, [facility] [address] [id number] [address] [place] [address], [place] [address] Jun, [facility] [address] [id number] [address] [place] [address], [place] [address] 29 Jun, 2014 [facility] [address] [id number] [address] [place] [address], [place] [address] Jun, [facility] [address] [id number] [address] [place] [address], [place] [address] Jun, [facility] [address] [id number] [address] [place] [address], [place] [address] Jun, [facility] [address] [id number] [address] [place] [address], [place] [address] Jun, [facility] [address] [id number] [address] [place] [address], [place] [address] May, [facility] [address] [id number] [address] [place] [address], [place] [address] May, [facility] [address] [id number] [address] [place] [address], [place] [address] May, [facility] [address] [id number] [address] [place] [address], [place] [address] May, [facility] [address] [id number] [address] [place] [address], [place] [address] May, [facility] [address] [id number] [address] [place] [address], [place] [address] May, [facility] [address] [id number] [address] [place] [address], [place] [address] May, [facility] [address] [id number] [address] [place] [address], [place] [address] May, [facility] [address] [id number] [address] [place] [address], [place] [address] May, [facility] [address] [id number] [address] [place] [address], [place] [address] 10 May, 2014 [facility] [address] [id number] [address] [place] [address], [place] [address] Apr, [facility] [address] [id number] [address] [place] [address], [place] [address] Apr, [facility] [address] [id number] [address] [place] [address], [place] [address] Apr, [facility] [address] [id number] [address] [place] [address], [place] [address] Apr, [facility] [address] [id number] [address] [place] [address], [place] [address] Apr, [facility] [address] [id number] [address] [place] [address], [place] [address] Apr, [facility] [address] [id number] [address] [place] [address], [place] [address] Apr, [facility] [address] [id number] [address] [place] [address], [place] [address] Apr, [facility] [address] [id number] [address] [place] [address], [place] [address] 15 Mar, 2014 [facility] [address] [id number] [address] [place] [address], [place] [address] 15 Mar, 2014 [facility] [address] [id number] [address] [place] [address] Mar, [facility] [address] [id number] [address] [place] [address] Mar, [facility] [address] [id number] [address] [place] [address] 08 Mar, 2014 [facility] [address] [id number] [address] [place] [address], [place] [address] Mar, [facility] [address] [id number] [address] [place] [address], [place] [address] Feb, [facility] [address] [id number] [address] [place] [address] Feb, [facility] [address] [id number] [address] [place] [address] Feb, [facility] [address] [id number] [facility] [place] [address] Feb, [facility] [address] [id number] [address] [place] [address], [place] [address] Feb, [facility] [address] [id number] [address] [place] [address], [place] [address] Feb, [facility] [address] [id number] [address] [place] [address], [place] [address] Jan, [facility] [address] [id number] [address] [place] [address], [place] [address] Jan, [facility] [address] [id number] [address] [place] [address], [place] [address] Jan, [facility] [address] [id number] [address] [place] [address], [place] [address] Jan, [facility] [address] [id number] [address] [place] [address], [place] [address] Jan, [facility] [address] [id number] [address] [place] [address], [place] [address] Jan, [facility] [address] [id number] [address] [place] [address], [place] [address] Dec, [facility] [address] [id number] [address] [place] [address], [place] [address] Dec, [facility] [address] [id number] [address] [place] [address], [place] [address] Dec, [facility] [address] [id number] [address] [place] [address], [place] [address] Dec, [facility] [address] [id number] [address] [place] [address], [place] [address] Dec, [facility] [address] [id number] [address] [place] [address], [place] [address] November, [facility] [address] [id number] [facility] [place] [address] November, [facility] [address] [id number] [facility] [place] [address] November, [facility] [address] [id number] [address] [place] [address], [place] [address] November, [facility] [address] [id number] [address] [place] [address], [place] [address] November, [facility] [address] [id number] [address] [place] [address], [place] [address] November, [facility] [address] [id number] [address] [place] [address], [place] [address] November, [facility] [address] [id number] [address] [place] [address], [place] [address] November, [facility] [address] [id number] [address] [place] [address], [place] [address] Oct, [facility] [address] [id number] [address] [place] [address], [place] [address] Oct, [facility] [address] [id number] [address] [place] [address], [place] [address] Oct, [facility] [address] [id number] [address] [place] [address], [place] [address] Oct, [facility] [address] [id number] [address] [place] [address], [place] [address] Oct, [facility] [address] [id number] [address] [place] [address], [place] [address] Oct, [facility] [address] [id number] [address] [place] [address], [place] [address] Sep, [facility] [address] [id number] [address] [place] [address], [place] [address] Sep, [facility] [address] [id number] [address] [place] [address], [place] [address] Sep, [facility] [address] [id number] [facility] [place] [address] Sep, [facility] [address] [id number] [address] [place] [address], [place] [address] Sep, [facility] [address] [id number] [address] [place] [address], [place] [address] Sep, [facility] [address] [id number] [address] [place] [address], [place] [address] Aug, [facility] [address] [id number] [address] [place] [address], [place] [address] Aug, [facility] [address] [id number] [address] [place] [address], [place] [address] Jul, [facility] [address] [id number] [address] [place] [address], [place] [address] Jul, [facility] [address] [id number] [address] [place] [address], [place] [address] Jul, [facility] [address] [id number] [address] [place] [address], [place] [address] Jul, [facility] [address] [id number] [address] [place] [address], [place] [address] Jul, [facility] [address] [id number] [address] [place] [address], [place] [address] Jul, [facility] [address] [id number] [address] [place] [address], [place] [address] Jul, [facility] [address] [id number] [address] [place] [address], [place] [address] Jul, [facility] [address] [id number] [address] [place] [address], [place] [address] Jul, [facility] [address] [id number] [address] [place] [address], [place] [address] Jul, [facility] [address] [id number] [address] [place] [address], [place] [address] 07 Jul, 2013 [facility] [address] [id number] [address] [place] [address], [place] [address] 07 Jul, 2013 [facility] [address] [id number] [address] [place] [address], [place] [address] 23 Jun, 2013 [facility] [address] [id number] [address] [place] [address], [place] [address] Jun, [facility] [address] [id number] [address] [place] [address], [place] [address] Jun, [facility] [address] [id number] [address] [place] [address], [place] [address] Jun, [facility] [address] [id number] [address] [place] [address], [place] [address] Jun, [facility] [address] [id number] [address] [place] [address], [place] [address] Jun, [facility] [address] [id number] [address] [place] [address], [place] [address] Jun, [facility] [address] [id number] [address] [place] [address], [place] [address] Jun, [facility] [address] [id number] [address] [place] [address], [place] [address] 18 May, 2013 [facility] [address] [id number] [address] [place] [address], [place] [address] 18 May, 2013 [facility] [address] [id number] [address] [place] [address], [place] [address] 13 May, 2013 [facility] [address] [id number] [address] [place] [address], [place] [address] 13 May, 2013 [facility] [address] [id number] [address] [place] [address], [place] [address] 10 Apr, 2013 [facility] [address] [id number] [address] [place] [address], [place] [address] 10 Apr, 2013 [facility] [address] [facility] [id number] [address] [place] [address] Apr, [facility] [address] [facility] [id number] [address] [place] [address] Mar, [facility] [address] [facility] [id number] [address] [place] [address] Feb, [facility] [address] [facility] [id number] [address] [place] [address] Jan, [facility] [address] [facility] [id number] [address] [place] [address] Jan, [facility] [address] [facility] [id number] [address] [place] [address] Jan, IMMUNIZATIONS No Known Immunizations SOCIAL HISTORY [...]
--- OUTSIDE RECORDS SUMMARY | 2020-01-12 11:26 | XMS REPORT ---
Author Author Cj Agudelo Doctor Organization [facility] Address Unknown Phone Unavailable Care Team Providers Care Systems Programmer Name Role Phone Migration, Doctor Unavailable Unavailable PROBLEMS Type Condition ICD9-CM Code RBS90-CM Code Onset Dates Condition S tatus SNOMED Code Problem Pain in joint, lower leg 719.46 Activ e 786842147 Problem Attention deficit disorder o f childhood 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 314.00 Active 86314180 Problem Essential hypertension, benign 401.1 Active 3082538 Problem Anxiety state, unspecified 300.00 Act disha 449389786 Problem Other and unspecified hyperlipidemia 272.4 Active 82048411 Problem Major depressive disorder, recurrent episode, moderate 296 .32 Active 93310580 Problem PTSD (post-traumatic stress disorder) F43.10 Active 62560709 Problem Generalized anxiety disorder 300.02 A ctive 90698006 Problem Anxiety F41.9 Active 86579731 Problem Depressive disorder, not elsewhere classified 311 Active 36695117 Problem Attention deficit hyperactivity disorder F90.9 Active 252484652 Problem Major depression F32.9 Active 370 113684 Problem Generalized anxiety disorder F41.1 A ctive 20407964 Problem Major depressive disorder, recurrent, moderate F33 .1 Active 00667238 ALLERGIES No Information ENCOUNTERS Encounter Location Date Diagnosis [place] [address] [address] May, [place] [address] [address] May, Major depressive disorder, recurrent, mo derate F33.1 ; Anxiety F41.9 ; PTSD (post-traumatic stress disorder) F43.10 and Neurocognitive disorder R41.9 [place] [address] [address] Jun, [place] [address] [address] May, Generalized anxiety disorder F41.1 ; Luis Angel or depression F32.9 and Attention deficit hyperactivity disorder F90.9 [facility], [place] [address] [id number] [place] [address] Feb, [facility], [place] [address] [id number] [place] [address] Jan, [facility], [place] [address] [id number] [place] [address] Dec, [facility], [place] [address] [place] [id number] [place] [address] Dec, [facility], [place] [address] [id number] [place] [address] Dec, Generalized anxiety disorder F41.1 ; Luis Angel or depression F32.9 and Attention deficit hyperactivity disorder F90.9 [facility], [place] [address] [place] [id number] [place] [address] Oct, [facility], [place] [address] [id number] [place] [address] Oct, [facility], [place] [id number] [place] [address] Sep, [facility], [place] [address] [id number] [place] [address] Sep, [facility], [place] [address] [id number] [place] [address] Aug, [facility], [place] [address] [id number] [place] [address] Aug, Generalized anxiety disorder F41.1 ; Luis Angel or depression F32.9 and Attention deficit hyperactivity disorder F90.9 [facility], [place] [address] [id number] [place] [address] Aug, [facility], [place] [address] [place] [id number] [place] [address] Aug, [facility], [place] [address] [id number] [place] [address] Jun, [facility], [place] [address] [place] [id number] [place] [address] Jun, [facility], [place] [address] [id number] [place] [address] Jun, Attention deficit hyperactivity disorder F90.9 ; Generalized anxiety disorder F41.1 and Major depression F32.9 [facility], [place] [address] [place] [id number] [place] [address] Jun, [facility], [place] [address] [place] [id number] [place] [address] Apr, [facility], [place] [address] [place] [id number] [place] [address] Mar, [facility], [place] [address] [address] Mar, [facility], [place] [address] [place] [id number] [place] [address] Feb, ADD (attention deficit disorder) 314.00 ; Major depressive disorder, recurrent episode, moderate 296.32 and Generalized anxiety disorder 300.02 [facility], [place] [address] [place] [id number] [place] [address] Feb, [facility], [place] [address] [place] [id number] [place] [address] Feb, [facility], [place] [address] [place] [id number] [place] [address] Jan, [facility], [place] [address] [place] [id number] [place] [address] Jan, [facility], [place] [address] [place] [id number] [place] [address] Jan, [facility], [place] [address] [place] [id number] [place] [address] Jan, [facility], [place] [address] [place] [id number] [place] [address] Dec, [facility], [place] [address] [place] [id number] [place] [address] Dec, [facility], [place] [address] [place] [id number] [place] [address] Dec, [facility], [place] [address] [place] [id number] [place] [address] November, Attention deficit disorder of childhood 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 314.00 ; Generalized anxiety disorder 300.02 and Major depressive disorder, recurrent episode, moderate 296.32 [facility], [place] [address] [place] [id number] [place] [address] November, [facility], [place] [address] [address] November, [facility], [place] [address] [place] [id number] [place] [address] November, Anxiety state 300.00 [facility], [place] [address] [address] Oct, [facility], [place] [address] [address] Oct, [facility], [place] [address] [place] [id number] [place] [address] Sep, [facility], [place] [address] [place] [id number] [place] [address] Sep, [facility], [place] [address] [address] Sep, [facility], [place] [address] [place] [id number] [place] [address] Sep, [facility], [place] [address] [place] [id number] [place] [address] Sep, [facility], [place] [address] [place] [id number] [place] [address] Sep, [facility], [place] [address] [place] [id number] [place] [address] Aug, [facility], [place] [address] [place] [id number] [place] [address] Aug, [facility], [place] [address] [place] [address] [id number] [place] [address] Aug, [facility] [place] [facility] [address] [id number] [place] [address] Aug, 2014 [facility] [place] [facility] [address] [facility] [id number] [place] [address] Aug, 2014 [facility] [place] [facility] [address] [id number] [place] [address] Aug, 2014 [facility] [place] [facility] [address] [id number] [place] [address] Aug, [facility] [place] [facility] [address] [id number] [place] [address] Aug, [facility] [place] [facility] [address] [id number] [place] [address] Jul, [facility] [place] [facility] [address] [id number] [place] [address] Jul, [facility] [place] [facility] [address] [id number] [place] [address] Jul, [facility] [place] [facility] [address] [id number] [place] [address] Jul, [facility] [place] [facility] [address] [id number] [place] [address] Jul, [facility] [place] [facility] [address] [id number] [place] [address] Jul, [facility] [place] [facility] [address] [id number] [place] [address] Jun, [facility] [place] [facility] [address] [id number] [place] [address] Jun, [facility] [place] [facility] [address] [id number] [place] [address] Jun, [facility] [place] [facility] [address] [id number] [place] [address] Jun, [facility] [place] [facility] [address] [id number] [place] [address] Jun, [facility] [place] [facility] [address] [id number] [place] [address] Jun, [facility] [place] [facility] [address] [facility] [id number] [place] [address] May, [facility] [place] [facility] [address] [id number] [place] [address] May, [facility] [place] [facility] [address] [id number] [place] [address] May, [facility] [place] [facility] [address] [id number] [place] [address] May, [facility] [place] [facility] [address] [id number] [place] [address] May, [facility] [place] [facility] [address] [id number] [place] [address] May, [facility] [place] [facility] [address] [id number] [place] [address] May, [facility] [place] [facility] [address] [id number] [place] [address] May, [facility] [place] [facility] [address] [id number] [place] [address] May, [facility] [place] [facility] [address] [id number] [place] [address] May, [facility] [place] [facility] [address] [id number] [place] [address] Apr, [facility] [place] [facility] [address] [id number] [place] [address] Apr, [facility] [place] [facility] [address] [id number] [place] [address] Apr, [facility] [place] [facility] [address] [id number] [place] [address] Apr, [facility] [place] [facility] [address] [id number] [place] [address] Apr, [facility] [place] [facility] [address] [id number] [place] [address] Apr, [facility] [place] [facility] [address] [id number] [place] [address] Apr, [facility] [place] [facility] [address] [facility] [id number] [place] [address] Apr, [facility] [place] [facility] [address] [facility] [id number] [place] [address] Mar, [facility] [place] [facility] [address] [id number] [place] [address] 15 Mar, 2014 [facility] [place] [facility] [address] [facility] [id number] [place] [address] Mar, [facility] [place] [facility] [address] [facility] [id number] [place] [address] Mar, [facility] [place] [facility] [address] [id number] [place] [address] Mar, [facility] [place] [facility] [address] [id number] [place] [address] Mar, [facility] [place] [facility] [address] [id number] [place] [address] Feb, [facility] [place] [facility] [address] [id number] [place] [address] Feb, [facility] [place] [facility] [address] [id number] [place] [address] Feb, [facility] [place] [facility] [address] [id number] [place] [address] Feb, [facility] [place] [facility] [address] [id number] [place] [address] Feb, [facility] [place] [facility] [address] [facility] [id number] [place] [address] Feb, [facility] [place] [facility] [address] [id number] [place] [address] Jan, [facility] [place] [facility] [address] [id number] [place] [address] Jan, [facility] [place] [facility] [address] [id number] [place] [address] Jan, [facility] [place] [facility] [address] [id number] [place] [address] Jan, [facility] [place] [facility] [address] [facility] [id number] [place] [address] Jan, [facility] [place] [facility] [address] [facility] [id number] [place] [address] Jan, [facility] [place] [facility] [address] [facility] [id number] [place] [address] Dec, [facility] [place] [facility] [address] [facility] [id number] [place] [address] Dec, [facility] [place] [facility] [address] [facility] [id number] [place] [address] Dec, [facility] [place] [facility] [address] [facility] [id number] [place] [address] Dec, [facility] [place] [facility] [address] [id number] [place] [address] Dec, [facility] [place] [facility] [address] [facility] [id number] [place] [address] November, [facility] [place] [facility] [address] [id number] [place] [address] November, [facility] [place] [facility] [address] [id number] [place] [address] November, [facility] [place] [facility] [address] [id number] [place] [address] November, [facility] [place] [facility] [address] [facility] [id number] [place] [address] November, [facility] [place] [facility] [address] [facility] [id number] [place] [address] November, [facility] [place] [facility] [address] [facility] [id number] [place] [address] November, [facility] [place] [facility] [address] [id number] [place] [address] November, [facility] [place] [facility] [address] [id number] [place] [address] Oct, [facility] [place] [facility] [address] [facility] [id number] [place] [address] Oct, [facility] [place] [facility] [address] [facility] [id number] [place] [address] Oct, [facility] [place] [facility] [address] [id number] [place] [address] Oct, [facility] [place] [facility] [address] [id number] [place] [address] Oct, [facility] [place] [facility] [address] [facility] [id number] [place] [address] Oct, [facility] [place] [facility] [address] [id number] [place] [address] Sep, [facility] [place] [facility] [address] [id number] [place] [address] Sep, [facility] [place] [facility] [address] [id number] [place] [address] Sep, [facility] [place] [facility] [address] [id number] [place] [address] Sep, [facility] [place] [facility] [address] [id number] [place] [address] Sep, [facility] [place] [facility] [address] [id number] [place] [address] Sep, [facility] [place] [facility] [address] [id number] [place] [address] Aug, [facility] [place] [facility] [address] [facility] [id number] [place] [address] Aug, [facility] [place] [facility] [address] [id number] [place] [address] Jul, [facility] [place] [facility] [address] [id number] [place] [address] Jul, [facility] [place] [facility] [address] [id number] [place] [address] Jul, [facility] [place] [facility] [address] [id number] [place] [address] 17 Jul, 2013 [facility] [place] [facility] [address] [id number] [place] [address] 15 Jul, 2013 [facility] [place] [facility] [address] [id number] [place] [address] 15 Jul, 2013 [facility] [place] [facility] [address] [id number] [place] [address] 13 Jul, 2013 [facility] [place] [facility] [address] [id number] [place] [address] 13 Jul, 2013 [facility] [place] [facility] [address] [id number] [place] [address] 07 Jul, 2013 [facility] [place] [facility] [address] [id number] [place] [address] 07 Jul, 2013 [facility] [place] [facility] [address] [id number] [place] [address] 07 Jul, 2013 [facility] [place] [facility] [address] [id number] [place] [address] 07 Jul, 2013 [facility] [place] [facility] [address] [id number] [place] [address] Jun, [facility] [place] [facility] [address] [id number] [place] [address] 23 Jun, 2013 [facility] [place] [facility] [address] [id number] [place] [address] 20 Jun, 2013 [facility] [place] [facility] [address] [id number] [place] [address] 20 Jun, 2013 [facility] [place] [facility] [address] [id number] [place] [address] 13 Jun, 2013 [facility] [place] [facility] [address] [id number] [place] [address] 13 Jun, 2013 [facility] [place] [facility] [address] [id number] [place] [address] 11 Jun, 2013 [facility] [place] [facility] [address] [id number] [place] [address] Jun, [facility] [place] [id number] [place] [address] May, [facility] [place] [id number] [place] [address] May, [facility] [place] [id number] [place] [address] May, [facility], [place] [id number] [place] [address] May, [facility] [place] [id number] [place] [address] Apr, [facility] [place] [address] [address] Apr, [facility] [place] [id number] [place] [address] Apr, [facility], [place] [id number] [place] [address] Mar, [facility], [place] [id number] [place] [address] Feb, [facility], [place] [id number] [place] [address] Jan, [facility], [place] [id number] [place] [address] Jan, [facility], [place] [id number] [place] [address] Jan, IMMUNIZATIONS No Known Immunizations SOCIAL HISTORY [...]
--- OUTSIDE RECORDS SUMMARY | 2020-01-12 11:26 | XMS REPORT ---
Author Author Cj Agudelo Doctor Organization [facility] Address Unknown Phone Unavailable Care Team Providers Care Can Filler Name Role Phone Migration, Doctor Unavailable Unavailable PROBLEMS Type Condition ICD9-CM Code SNE90-SY Code Onset Dates Condition S tatus SNOMED Code Problem Pain in joint, lower leg 719.46 Activ e 786020382 Problem Attention deficit disorder o f childhood 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 314.00 Active 90875084 Problem Essential hypertension, benign 401.1 Active 7330839 Problem Anxiety state, unspecified 300.00 Act disha 294070666 Problem Other and unspecified hyperlipidemia 272.4 Active 97363138 Problem Major depressive disorder, recurrent episode, moderate 296 .32 Active 54345498 Problem PTSD (post-traumatic stress disorder) F43.10 Active 93502502 Problem Generalized anxiety disorder 300.02 A ctive 92798987 Problem Anxiety F41.9 Active 97187916 Problem Depressive disorder, not elsewhere classified 311 Active 10463205 Problem Attention deficit hyperactivity disorder F90.9 Active 557089075 Problem Major depression F32.9 Active 370 058666 Problem Generalized anxiety disorder F41.1 A ctive 12301773 Problem Major depressive disorder, recurrent, moderate F33 .1 Active 88024743 ALLERGIES No Information ENCOUNTERS Encounter Location Date Diagnosis [place] [address] [address] May, [place] [address] [address] May, Major depressive disorder, recurrent, mo derate F33.1 ; Anxiety F41.9 ; PTSD (post-traumatic stress disorder) F43.10 and Neurocognitive disorder R41.9 [place] [address] [address] Jun, [place] [address] [address] May, Generalized anxiety disorder F41.1 ; [place] or depression F32.9 and Attention deficit hyperactivity disorder F90.9 [facility] [address] [id number] [place] [address] Feb, [facility] [address] [id number] [place] [address] Jan, [facility] [address] [id number] [place] [address] Dec, [facility] [address] [place] [id number] [place] [address] Dec, [facility] [address] [id number] [place] [address] Dec, Generalized anxiety disorder F41.1 ; [place] or depression F32.9 and Attention deficit hyperactivity disorder F90.9 [facility] [address] [place] [id number] [place] [address] Oct, [facility] [address] [place] [id number] [place] [address] Oct, [facility] [address] [place] [address] [id number] [place] [address] Sep, [facility] [address] [id number] [place] [address] Sep, [facility] [address] [id number] [place] [address] Aug, [facility] [address] [place] [id number] [place] [address] Aug, Generalized anxiety disorder F41.1 ; [place] or depression F32.9 and Attention deficit hyperactivity disorder F90.9 [facility] [address] [place] [id number] [place] [address] Aug, [facility] [address] [place] [id number] [place] [address] Aug, [facility] [address] [id number] [place] [address] Jun, [facility] [address] [place] [id number] [place] [address] Jun, [facility] [address] [place] [id number] [place] [address] Jun, Attention deficit hyperactivity disorder F90.9 ; Generalized anxiety disorder F41.1 and Major depression F32.9 [facility] [address] [place] [id number] [place] [address] Jun, [facility] [address] [place] [id number] [place] [address] Apr, [facility] [address] [place] [id number] [place] [address] Mar, [facility] [address] [address] Mar, [facility] [address] [place] [id number] [place] [address] Feb, ADD (attention deficit disorder) 314.00 ; Major depressive disorder, recurrent episode, moderate 296.32 and Generalized anxiety disorder 300.02 [facility] [address] [place] [id number] [place] [address] Feb, [facility] [address] [place] [id number] [place] [address] Feb, [facility] [address] [place] [id number] [place] [address] Jan, [facility] [address] [place] [id number] [place] [address] Jan, [facility] [address] [place] [id number] [place] [address] Jan, [facility] [address] [place] [id number] [place] [address] Jan, [facility] [address] [place] [id number] [place] [address] Dec, [facility] [address] [place] [id number] [place] [address] Dec, [facility] [address] [place] [id number] [place] [address] Dec, [facility] [address] [place] [id number] [place] [address] November, Attention deficit disorder of childhood 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 314.00 ; Generalized anxiety disorder 300.02 and Major depressive disorder, recurrent episode, moderate 296.32 [facility] [address] [place] [id number] [place] [address] November, [facility] [address] [address] November, [facility] [address] [place] [id number] [place] [address] November, Anxiety state 300.00 [facility] [address] [address] Oct, [facility] [address] [address] Oct, [facility] [address] [place] [id number] [place] [address] Sep, [facility] [address] [place] [id number] [place] [address] Sep, [facility] [address] [address] Sep, [facility] [address] [place] [id number] [place] [address] Sep, [facility] [address] [place] [id number] [place] [address] Sep, [facility] [address] [place] [id number] [place] [address] Sep, [facility] [address] [place] [id number] [place] [address] Aug, [facility] [address] [place] [id number] [place] [address] Aug, [facility] [address] [place] [id number] [place] [address] Aug, [facility] [place] [facility] [address] [id number] [place] [address] Aug, 2014 [facility] [place] [facility] [address] [id number] [place] [address] Aug, 2014 [facility] [place] [facility] [address] [id number] [place] [address] Aug, 2014 [facility] [place] [facility] [address] [id number] [place] [address] Aug, [facility] [place] [facility] [address] [id number] [place] [address] Aug, [facility] [place] [facility] [address] [id number] [place] [address] Jul, [facility] [place] [facility] [address] [id number] [place] [address] Jul, [facility] [place] [facility] [address] [id number] [place] [address] Jul, [facility] [place] [facility] [address] [id number] [place] [address] Jul, [facility] [place] [facility] [address] [id number] [place] [address] Jul, [facility] [place] [facility] [address] [id number] [place] [address] Jul, [facility] [place] [facility] [address] [id number] [place] [address] Jun, [facility] [place] [facility] [address] [id number] [place] [address] Jun, [facility] [place] [facility] [address] [id number] [place] [address] Jun, [facility] [place] [facility] [address] [id number] [place] [address] Jun, [facility] [place] [facility] [address] [id number] [place] [address] Jun, [facility] [place] [facility] [address] [id number] [place] [address] Jun, [facility] [place] [facility] [address] [facility] [id number] [place] [address] May, [facility] [place] [facility] [address] [id number] [place] [address] May, [facility] [place] [facility] [address] [id number] [place] [address] May, [facility] [place] [facility] [address] [id number] [place] [address] May, [facility] [place] [facility] [address] [id number] [place] [address] May, [facility] [place] [facility] [address] [id number] [place] [address] May, [facility] [place] [facility] [address] [id number] [place] [address] May, [facility] [place] [facility] [address] [id number] [place] [address] May, [facility] [place] [facility] [address] [id number] [place] [address] May, [facility] [place] [facility] [address] [id number] [place] [address] May, [facility] [place] [facility] [address] [id number] [place] [address] Apr, [facility] [place] [facility] [address] [id number] [place] [address] Apr, [facility] [place] [facility] [address] [id number] [place] [address] Apr, [facility] [place] [facility] [address] [id number] [place] [address] Apr, [facility] [place] [facility] [address] [id number] [place] [address] Apr, [facility] [place] [facility] [address] [id number] [place] [address] Apr, [facility] [place] [facility] [address] [id number] [place] [address] Apr, [facility] [place] [facility] [address] [facility] [id number] [place] [address] Apr, [facility] [place] [facility] [address] [facility] [id number] [place] [address] Mar, [facility] [place] [facility] [address] [id number] [place] [address] 15 Mar, 2014 [facility] [place] [facility] [address] [facility] [id number] [place] [address] Mar, [facility] [place] [facility] [address] [facility] [id number] [place] [address] Mar, [facility] [place] [facility] [address] [id number] [place] [address] Mar, [facility] [place] [facility] [address] [id number] [place] [address] Mar, [facility] [place] [facility] [address] [id number] [place] [address] Feb, [facility] [place] [facility] [address] [id number] [place] [address] Feb, [facility] [place] [facility] [address] [id number] [place] [address] Feb, [facility] [place] [facility] [address] [id number] [place] [address] Feb, [facility] [place] [facility] [address] [id number] [place] [address] Feb, [facility] [place] [facility] [address] [facility] [id number] [place] [address] Feb, [facility] [place] [facility] [address] [id number] [place] [address] Jan, [facility] [place] [facility] [address] [id number] [place] [address] Jan, [facility] [place] [facility] [address] [id number] [place] [address] Jan, [facility] [place] [facility] [address] [id number] [facility] [address] Jan, [facility] [place] [facility] [address] [facility] [id number] [facility] [place] [address] Jan, [facility] [place] [facility] [address] [facility] [id number] [facility] [address] Jan, [facility] [place] [facility] [address] [facility] [id number] [place] [address] Dec, [facility] [place] [facility] [address] [facility] [id number] [place] [address] Dec, [facility] [place] [facility] [address] [facility] [id number] [facility] [address] Dec, [facility] [place] [facility] [address] [facility] [id number] [place] [address] Dec, [facility] [place] [facility] [address] [id number] [facility] [address] Dec, [facility] [place] [facility] [address] [facility] [id number] [facility] [address] November, [facility] [place] [facility] [address] [id number] [facility] [address] November, [facility] [place] [facility] [address] [id number] [place] [address] November, [facility] [place] [facility] [address] [id number] [place] [address] November, [facility] [place] [facility] [address] [facility] [id number] [facility] [address] November, [facility] [place] [facility] [address] [facility] [id number] [place] [address] November, [facility] [place] [facility] [address] [facility] [id number] [place] [address] November, [facility] [place] [facility] [address] [id number] [place] [address] November, [facility] [place] [facility] [address] [id number] [place] [address] Oct, [facility] [place] [facility] [address] [facility] [id number] [facility] [address] Oct, [facility] [place] [facility] [address] [facility] [id number] [place] [address] Oct, [facility] [place] [facility] [address] [id number] [place] [address] Oct, [facility] [place] [facility] [address] [id number] [place] [address] Oct, [facility] [place] [facility] [address] [facility] [id number] [place] [address] Oct, [facility] [place] [facility] [address] [id number] [place] [address] Sep, [facility] [place] [facility] [address] [id number] [place] [address] Sep, [facility] [place] [facility] [address] [id number] [place] [address] Sep, [facility] [place] [facility] [address] [id number] [place] [address] Sep, [facility] [place] [facility] [address] [id number] [place] [address] Sep, [facility] [place] [facility] [address] [id number] [place] [address] Sep, [facility] [place] [facility] [address] [id number] [place] [address] Aug, [facility] [place] [facility] [address] [facility] [id number] [place] [address] Aug, [facility] [place] [facility] [address] [id number] [place] [address] Jul, [facility] [place] [facility] [address] [id number] [place] [address] Jul, [facility] [place] [facility] [address] [id number] [place] [address] Jul, [facility] [place] [facility] [address] [id number] [place] [address] 17 Jul, 2013 [facility] [place] [facility] [address] [id number] [place] [address] 15 Jul, 2013 [facility] [place] [facility] [address] [id number] [place] [address] 15 Jul, 2013 [facility] [place] [facility] [address] [id number] [place] [address] 13 Jul, 2013 [facility] [place] [facility] [address] [id number] [place] [address] 13 Jul, 2013 [facility] [place] [facility] [address] [id number] [place] [address] 07 Jul, 2013 [facility] [place] [facility] [address] [id number] [place] [address] 07 Jul, 2013 [facility] [place] [facility] [address] [id number] [place] [address] 07 Jul, 2013 [facility] [place] [facility] [address] [id number] [place] [address] 07 Jul, 2013 [facility] [place] [facility] [address] [id number] [place] [address] Jun, [facility] [place] [facility] [address] [id number] [place] [address] 23 Jun, 2013 [facility] [place] [facility] [address] [id number] [place] [address] 20 Jun, 2013 [facility] [place] [facility] [address] [id number] [place] [address] 20 Jun, 2013 [facility] [place] [facility] [address] [id number] [place] [address] 13 Jun, 2013 [facility] [place] [facility] [address] [id number] [place] [address] 13 Jun, 2013 [facility] [place] [facility] [address] [id number] [place] [address] 11 Jun, 2013 [facility] [place] [facility] [address] [id number] [place] [address] Jun, [facility] [id number] [place] [address] May, [facility] [id number] [place] [address] May, [facility] [id number] [place] [address] May, [facility] [id number] [place] [address] May, [facility] [id number] [place] [address] Apr, [facility] [address] [address] Apr, [facility] [id number] [place] [address] Apr, [facility] [id number] [place] [address] Mar, [facility] [id number] [place] [address] Feb, [facility] [id number] [place] [address] Jan, [facility] [id number] [place] [address] Jan, [facility] [id number] [place] [address] Jan, IMMUNIZATIONS No Known Immunizations SOCIAL HISTORY [...]
--- OUTSIDE RECORDS SUMMARY | 2020-01-12 11:26 | XMS REPORT ---
Author Author Cj PADILLA Organization [facility] Address [address] [place] [address] Care Team Providers Care Counselor Camp Name Role Phone JUAN JOSÉ PADILLA Unavailable PROBLEMS Type Condition ICD9-CM Code [id number] Code Onset Dates Condition S tatus SNOMED Code Problem Pain in joint, lower leg 719.46 Activ e 735612910 Problem Attention deficit disorder o f childhood 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 314.00 Active 14158244 Problem Essential hypertension, benign 401.1 Active 9928420 Problem Anxiety state, unspecified 300.00 Act disha 837102456 Problem Other and unspecified hyperlipidemia 272.4 Active 25960661 Problem Major depressive disorder, recurrent episode, moderate 296 .32 Active 82360862 Problem PTSD (post-traumatic stress disorder) F43.10 Active 75809740 Problem Generalized anxiety disorder 300.02 A ctive 04770133 Problem Anxiety F41.9 Active 26900584 Problem Depressive disorder, not elsewhere classified 311 Active 46521896 Problem Attention deficit hyperactivity disorder F90.9 Active 697987188 Problem Major depression F32.9 Active 370 803912 Problem Generalized anxiety disorder F41.1 A ctive 03244826 Problem Major depressive disorder, recurrent, moderate F33 .1 Active 25115465 ALLERGIES No Information ENCOUNTERS Encounter Location Date Diagnosis [facility] [address] [id number] [address] [place] [phone] May, [facility] [address] [id number] [address] [place] [phone] May, Major depressive disorder, r ecurrent, moderate F33.1 ; Anxiety F41.9 ; PTSD (post-traumatic stress disorder) F43.10 and Neurocognitive disorder R41.9 [facility] [address] [facility] [id number] [address] [place] [phone] Jun, [facility] [address] [id number] [address] [place] [phone] May, Generalized anxiety disorder F41.1 ; Major depression F32.9 and Attention deficit hyperactivity disorder F90.9 [facility] [address] [facility] [id number] [address] [place] [phone] Feb, [facility] [address] [facility] [id number] [address] [place] [phone] Jan, [facility] [address] [facility] [id number] [address] [place] [phone] Dec, [facility] [address] [facility] [id number] [address] [place] [phone] Dec, [facility] [address] [facility] [id number] [address] [place] [phone] Dec, Generalized anxiety disorder F41.1 ; Major depression F32.9 and Attention deficit hyperactivity disorder F90.9 [facility] [address] [facility] [id number] [address] [place] [phone] Oct, [facility] [address] [facility] [id number] [address] [place] [phone] Oct, [facility] [address] [facility] [id number] [address] [place] [phone] Sep, [facility] [address] [facility] [id number] [address] [place] [phone] Sep, [facility] [address] [facility] [id number] [address] [place] [phone] Aug, [facility] [address] [facility] [id number] [address] [place] [phone] Aug, Generalized anxiety disorder F41.1 ; Major depression F32.9 and Attention deficit hyperactivity disorder F90.9 [facility] [address] [facility] [id number] [address] [place] [phone] Aug, [facility] [address] [facility] [id number] [address] [place] [phone] Aug, [facility] [address] [facility] [id number] [address] [place] [phone] Jun, [facility] [address] [facility] [id number] [address] [place] [phone] Jun, [facility] [address] [facility] [id number] [address] [place] [phone] Jun, Attention deficit hyperactiv ity disorder F90.9 ; Generalized anxiety disorder F41.1 and Major depression F32.9 [facility] [address] [facility] [id number] [address] [place] [phone] Jun, [facility] [address] [facility] [id number] [address] [place] [phone] Apr, [facility] [address] [facility] [id number] [address] [place] [phone] Mar, [facility] [address] [facility] [id number] [address] [place] [phone] Mar, [facility] [address] [facility] [id number] [address] [place] [phone] Feb, ADD (attention deficit disor nerissa) 314.00 ; Major depressive disorder, recurrent episode, moderate 296.32 and Generalized anxiety disorder 300.02 [facility] [address] [facility] [id number] [address] [place] [phone] Feb, [facility] [address] [facility] [id number] [address] [place] [phone] Feb, [facility] [address] [facility] [id number] [address] [place] [phone] Jan, [facility] [address] [facility] [id number] [address] [place] [phone] Jan, [facility] [address] [facility] [id number] [address] [place] [phone] Jan, [facility] [address] [facility] [id number] [address] [place] [phone] Jan, [facility] [address] [id number] [address] [place] [phone] Dec, [facility] [address] [id number] [address] [place] [phone] Dec, [facility] [address] [facility] [id number] [address] [place] [phone] Dec, [facility] [address] [id number] [address] [place] [phone] November, Attention deficit disorder o f childhood 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 314.00 ; Generalized anxiety disorder 300.02 and Major depressive disorder, recurrent episode, moderate 296.32 [facility] [address] [id number] [address] [place] [phone] November, [facility] [address] [id number] [address] [place] [phone] November, [facility] [address] [id number] [address] [place] [phone] November, Anxiety state 300.00 [facility] [address] [id number] [address] [place] [phone] Oct, [facility] [address] [facility] [id number] [address] [place] [phone] Oct, [facility] [address] [id number] [address] [place] [phone] Sep, [facility] [address] [id number] [address] [place] [phone] Sep, [facility] [address] [id number] [address] [place] [phone] Sep, [facility] [address] [facility] [id number] [address] [place] [phone] Sep, [facility] [address] [facility] [id number] [address] [place] [phone] Sep, [facility] [address] [id number] [address] [place] [address], [place] [address] Sep, [facility] [address] [id number] [address] [place] [address], [place] [address] Aug, 2014 [facility] [address] [id number] [address] [place] [address], [place] [address] Aug, 2014 [facility] [address] [id number] [address] [place] [address], [place] [address] Aug, 2014 [facility] [address] [id number] [address] [place] [address], [place] [address] Aug, 2014 [facility] [address] [id number] [address] [place] [address], [place] [address] Aug, 2014 [facility] [address] [id number] [address] [place] [address], [place] [address] Aug, [facility] [address] [id number] [address] [place] [address], [place] [address] Aug, [facility] [address] [id number] [address] [place] [address], [place] [address] Aug, [facility] [address] [id number] [address] [place] [address], [place] [address] Jul, [facility] [address] [id number] [address] [place] [address], [place] [address] Jul, [facility] [address] [id number] [address] [place] [phone] Jul, [facility] [address] [id number] [address] [place] [address], [place] [address] Jul, [facility] [address] [id number] [address] [place] [address], [place] [address] Jul, [facility] [address] [id number] [address] [place] [phone] Jul, [facility] [address] [id number] [address] [place] [phone] Jun, [facility] [address] [id number] [address] [place] [address], [place] [address] Jun, [facility] [address] [id number] [address] [place] [address], [place] [address] Jun, [facility] [address] [id number] [address] [place] [address], [place] [address] Jun, [facility] [address] [id number] [address] [place] [address], [place] [address] Jun, [facility] [address] [id number] [address] [place] [address], [place] [address] Jun, [facility] [address] [id number] [address] [place] [address], [place] [address] May, [facility] [address] [id number] [address] [place] [address], [place] [address] May, [facility] [address] [id number] [address] [place] [address], [place] [address] May, [facility] [address] [id number] [address] [place] [address], [place] [address] May, [facility] [address] [id number] [address] [place] [address], [place] [address] May, [facility] [address] [id number] [address] [place] [address], [place] [address] May, [facility] [address] [id number] [address] [place] [address], [place] [address] May, [facility] [address] [id number] [address] [place] [address], [place] [address] May, [facility] [address] [id number] [address] [place] [address], [place] [address] May, [facility] [address] [id number] [address] [place] [address], [place] [address] May, [facility] [address] [id number] [address] [place] [address], [place] [address] Apr, [facility] [address] [id number] [address] [place] [address], [place] [address] Apr, [facility] [address] [id number] [address] [place] [address], [place] [address] Apr, [facility] [address] [id number] [address] [place] [address], [place] [address] Apr, [facility] [address] [id number] [address] [place] [address], [place] [address] Apr, [facility] [address] [id number] [address] [place] [address], [place] [address] Apr, [facility] [address] [id number] [address] [place] [address], [place] [address] Apr, [facility] [address] [id number] [address] [place] [address], [place] [address] Apr, [facility] [address] [id number] [address] [place] [address], [place] [address] 15 Mar, 2014 [facility] [address] [id number] [address] [place] [address], [place] [address] 15 Mar, 2014 [facility] [address] [id number] [address] [place] [address], [place] [address] Mar, [facility] [address] [id number] [address] [place] [address], [place] [address] Mar, [facility] [address] [id number] [address] [place] [address], [place] [address] Mar, [facility] [address] [id number] [address] [place] [address], [place] [address] Mar, [facility] [address] [id number] [address] [place] [address], [place] [address] Feb, [facility] [address] [id number] [address] [place] [address], [place] [address] Feb, [facility] [address] [id number] [facility] [place] [address] Feb, [facility] [address] [id number] [facility] [place] [address] Feb, [facility] [address] [id number] [facility] [place] [address] Feb, [facility] [address] [id number] [address] [place] [address], [place] [address] Feb, [facility] [address] [id number] [address] [place] [address], [place] [address] Jan, [facility] [address] [id number] [address] [place] [address], [place] [address] Jan, [facility] [address] [id number] [address] [place] [address], [place] [address] Jan, [facility] [address] [id number] [address] [place] [address], [place] [address] Jan, [facility] [address] [id number] [address] [place] [address], [place] [address] Jan, [facility] [address] [id number] [address] [place] [address], [place] [address] Jan, [facility] [address] [id number] [address] [place] [address], [place] [address] Dec, [facility] [address] [id number] [address] [place] [address], [place] [address] Dec, [facility] [address] [id number] [address] [place] [address], [place] [address] Dec, [facility] [address] [id number] [address] [place] [address], [place] [address] Dec, [facility] [address] [id number] [address] [place] [address], [place] [address] Dec, [facility] [address] [id number] [address] [place] [address], [place] [address] November, [facility] [address] [id number] [address] [place] [address], [place] [address] November, [facility] [address] [id number] [address] [place] [address], [place] [address] November, [facility] [address] [id number] [address] [place] [address], [place] [address] November, [facility] [address] [id number] [address] [place] [address], [place] [address] November, [facility] [address] [id number] [address] [place] [address], [place] [address] November, [facility] [address] [id number] [address] [place] [address], [place] [address] November, [facility] [address] [id number] [address] [place] [address], [place] [address] November, [facility] [address] [id number] [address] [place] [address], [place] [address] Oct, [facility] [address] [id number] [address] [place] [address], [place] [address] Oct, [facility] [address] [id number] [address] [place] [address], [place] [address] Oct, [facility] [address] [id number] [address] [place] [address], [place] [address] Oct, [facility] [address] [id number] [address] [place] [address], [place] [address] Oct, [facility] [address] [id number] [address] [place] [address], [place] [address] Oct, [facility] [address] [id number] [address] [place] [address], [place] [address] Sep, [facility] [address] [id number] [address] [place] [address], [place] [address] Sep, [facility] [address] [id number] [facility] [address] 06 Sep, 2013 [facility] [address] [id number] [address] [place] [address], [place] [address] 06 Sep, 2013 [facility] [address] [id number] [address] [place] [address], [place] [address] 04 Sep, 2013 [facility] [address] [id number] [address] [place] [address], [place] [address] Sep, [facility] [address] [id number] [address] [place] [address], [place] [address] Aug, [facility] [address] [id number] [address] [place] [address], [place] [address] Aug, [facility] [address] [id number] [address] [place] [address], [place] [address] Jul, [facility] [address] [id number] [address] [place] [address], [place] [address] Jul, [facility] [address] [id number] [address] [place] [address], [place] [address] Jul, [facility] [address] [id number] [address] [place] [address], [place] [address] Jul, [facility] [address] [id number] [address] [place] [address], [place] [address] Jul, [facility] [address] [id number] [address] [place] [address], [place] [address] Jul, [facility] [address] [id number] [address] [place] [address], [place] [address] Jul, [facility] [address] [id number] [address] [place] [address], [place] [address] Jul, [facility] [address] [id number] [address] [place] [address], [place] [address] Jul, [facility] [address] [id number] [address] [place] [address], [place] [address] Jul, [facility] [address] [id number] [address] [place] [address], [place] [address] Jul, [facility] [address] [id number] [address] [place] [address], [place] [address] Jul, [facility] [address] [id number] [address] [place] [address], [place] [address] Jun, [facility] [address] [id number] [address] [place] [address], [place] [address] Jun, [facility] [address] [id number] [address] [place] [address], [place] [address] Jun, [facility] [address] [id number] [address] [place] [address], [place] [address] Jun, [facility] [address] [id number] [address] [place] [address], [place] [address] Jun, [facility] [address] [id number] [address] [place] [address], [place] [address] Jun, [facility] [address] [id number] [address] [place] [address], [place] [address] Jun, [facility] [address] [id number] [address] [place] [address], [place] [id number] Jun, [facility] [address] [id number] [address] [place] [address], [place] [id number] 18 May, 2013 [facility] [address] [id number] [address] [place] [address], [place] [id number] 18 May, 2013 [facility] [address] [id number] [address] [place] [address], [place] [id number] 13 May, 2013 [facility] [address] [id number] [address] [place] [address], [place] [id number] 13 May, 2013 [facility] [address] [id number] [address] [place] [address], [place] [id number] 10 Apr, 2013 [facility] [address] [id number] [address] [place] [phone] 10 Apr, 2013 [facility] [address] [facility] [id number] [address] [place] [phone] Apr, [facility] [address] [facility] [id number] [address] [place] [phone] Mar, [facility] [address] [facility] [id number] [address] [place] [phone] Feb, [facility] [address] [facility] [id number] [address] [place] [phone] Jan, [facility] [address] [facility] [id number] [address] [place] [phone] Jan, [facility] [address] [facility] [id number] [address] [place] [phone] Jan, IMMUNIZATIONS No Known Immunizations SOCIAL HISTORY [...]
--- OUTSIDE RECORDS SUMMARY | 2020-01-12 11:26 | XMS REPORT ---
Author Author Cj Agudelo Doctor Organization [facility] Address Unknown Phone Unavailable Care Team Providers Care Motor Driver Name Role Phone Migration, Doctor Unavailable Unavailable PROBLEMS Type Condition ICD9-CM Code [id number] Code Onset Dates Condition S tatus SNOMED Code Problem Pain in joint, lower leg 719.46 Activ e 731334026 Problem Attention deficit disorder o f childhood 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 314.00 Active 55281846 Problem Essential hypertension, benign 401.1 Active 0935321 Problem Anxiety state, unspecified 300.00 Act disha 351552165 Problem Other and unspecified hyperlipidemia 272.4 Active 48981395 Problem Major depressive disorder, recurrent episode, moderate 296 .32 Active 63498628 Problem PTSD (post-traumatic stress disorder) F43.10 Active 87229731 Problem Generalized anxiety disorder 300.02 A ctive 91566646 Problem Anxiety F41.9 Active 50746214 Problem Depressive disorder, not elsewhere classified 311 Active 35258462 Problem Attention deficit hyperactivity disorder F90.9 Active 895957420 Problem Major depression F32.9 Active 370 509441 Problem Generalized anxiety disorder F41.1 A ctive 22597199 Problem Major depressive disorder, recurrent, moderate F33 .1 Active 35747024 ALLERGIES No Information ENCOUNTERS Encounter Location Date Diagnosis [place] [address] [place] [id number] [address] [place] [address] May, [place] [address] [place] [id number] [address] [place] [address] May, Major depressive disorder, r ecurrent, moderate F33.1 ; Anxiety F41.9 ; PTSD (post-traumatic stress disorder) F43.10 and Neurocognitive disorder R41.9 [place] [address] [place] [id number] [address] [place] [address] Jun, [place] [address] [place] [id number] [address] [place] [address] 16 May, 2016 Generalized anxiety disorder F41.1 ; Major depression F32.9 and Attention deficit hyperactivity disorder F90.9 [facility] [place] [address] [id number] [address] [place] [address] Feb, [facility] [place] [address] [id number] [address] [place] [address] Jan, [facility] [place] [address] [id number] [address] [place] [address] Dec, [facility] [place] [address] [id number] [address] [place] [address] Dec, [facility] [place] [address] [id number] [address] [place] [address] Dec, Generalized anxiety disorder F41.1 ; Major depression F32.9 and Attention deficit hyperactivity disorder F90.9 [facility] [place] [address] [id number] [address] [place] [address] Oct, [facility] [place] [address] [id number] [address] [place] [address] Oct, [facility] [place] [address] [id number] [address] [place] [address] Sep, [facility] [place] [address] [id number] [address] [place] [address] Sep, [facility] [place] [address] [id number] [address] [place] [address] Aug, [facility] [place] [address] [id number] [address] [place] [address] Aug, Generalized anxiety disorder F41.1 ; Major depression F32.9 and Attention deficit hyperactivity disorder F90.9 [facility] [place] [address] [id number] [address] [place] [address] 05 Aug, 2015 [facility] [place] [address] [id number] [address] [place] [address] Aug, [facility] [place] [address] [id number] [address] [place] [address] Jun, [facility] [place] [address] [facility] [id number] [address] [place] [address] Jun, [facility] [place] [address] [facility] [id number] [address] [place] [address] Jun, Attention deficit hyperactiv ity disorder F90.9 ; Generalized anxiety disorder F41.1 and Major depression F32.9 [facility] [place] [address] [facility] [id number] [address] [place] [address] Jun, [facility] [place] [address] [facility] [id number] [address] [place] [address] Apr, [facility] [place] [address] [facility] [id number] [address] [place] [address] Mar, [facility] [place] [address] [facility] [id number] [address] [place] [address] Mar, [facility] [place] [address] [place] [id number] [address] [place] [address] Feb, ADD (attention deficit disor nerissa) 314.00 ; Major depressive disorder, recurrent episode, moderate 296.32 and Generalized anxiety disorder 300.02 [facility] [place] [address] [facility] [id number] [address] [place] [address] Feb, [facility] [place] [address] [facility] [id number] [address] [place] [address] Feb, [facility] [place] [address] [facility] [id number] [address] [place] [address] Jan, [facility] [place] [address] [facility] [id number] [address] [place] [address] Jan, [facility] [place] [address] [facility] [id number] [address] [place] [address] Jan, [facility] [place] [address] [facility] [id number] [address] [place] [address] Jan, [facility] [place] [address] [id number] [address] [place] [address] 15 Dec, 2014 [facility] [place] [address] [id number] [address] [place] [address] Dec, [facility] [place] [address] [id number] [address] [place] [address] Dec, [facility] [place] [address] [id number] [address] [place] [address] November, Attention deficit disorder o f childhood 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 314.00 ; Generalized anxiety disorder 300.02 and Major depressive disorder, recurrent episode, moderate 296.32 [facility] [place] [address] [id number] [address] [place] [address] November, [facility] [place] [address] [id number] [address] [place] [address] November, [facility] [place] [address] [facility] [id number] [address] [place] [address] November, Anxiety state 300.00 [facility] [place] [address] [id number] [address] [place] [address] Oct, [facility] [place] [address] [id number] [address] [place] [address] Oct, [facility] [place] [address] [id number] [address] [place] [address] Sep, [facility] [place] [address] [id number] [address] [place] [address] Sep, [facility] [place] [address] [id number] [address] [place] [address] Sep, [facility] [place] [address] [id number] [address] [place] [address] Sep, [facility] [place] [address] [id number] [address] [place] [address] Sep, [facility] [place] [address] [id number] [address] [place] [address] Sep, [facility] [address] [id number] [address] [place] [address], [place] [address] Aug, [facility] [address] [id number] [address] [place] [address], [place] [address] Aug, [facility] [address] [id number] [address] [place] [address], [place] [address] Aug, [facility] [address] [id number] [address] [place] [address], [place] [address] Aug, 2014 [facility] [address] [id number] [address] [place] [address], [place] [address] Aug, [facility] [address] [id number] [address] [place] [address], [place] [address] Aug, [facility] [address] [id number] [address] [place] [address], [place] [address] Aug, [facility] [address] [id number] [address] [place] [address], [place] [address] Aug, [facility] [address] [id number] [address] [place] [address], [place] [address] Jul, [facility] [address] [id number] [address] [place] [address], [place] [address] Jul, [facility] [address] [id number] [address] [place] [address], [place] [address] Jul, [facility] [address] [id number] [address] [place] [address], [place] [address] Jul, [facility] [address] [id number] [address] [place] [address], [place] [address] Jul, [facility] [address] [id number] [address] [place] [address], [place] [address] Jul, [facility] [address] [id number] [address] [place] [address], [place] [address] Jun, [facility] [address] [id number] [address] [place] [address], [place] [address] 29 Jun, 2014 [facility] [address] [id number] [address] [place] [address], [place] [address] Jun, [facility] [address] [id number] [address] [place] [address], [place] [address] Jun, [facility] [address] [id number] [address] [place] [address], [place] [address] Jun, [facility] [address] [id number] [address] [place] [address], [place] [address] Jun, [facility] [address] [id number] [address] [place] [address], [place] [address] May, [facility] [address] [id number] [address] [place] [address], [place] [address] May, [facility] [address] [id number] [address] [place] [address], [place] [address] May, [facility] [address] [id number] [address] [place] [address], [place] [address] May, [facility] [address] [id number] [address] [place] [address], [place] [address] May, [facility] [address] [id number] [address] [place] [address], [place] [address] May, [facility] [address] [id number] [address] [place] [address], [place] [address] May, [facility] [address] [id number] [address] [place] [address], [place] [address] May, [facility] [address] [id number] [address] [place] [address], [place] [address] May, [facility] [address] [id number] [address] [place] [address], [place] [address] 10 May, 2014 [facility] [address] [id number] [address] [place] [address], [place] [address] Apr, [facility] [address] [id number] [address] [place] [address], [place] [address] Apr, [facility] [address] [id number] [address] [place] [address], [place] [address] Apr, [facility] [address] [id number] [address] [place] [address], [place] [address] Apr, [facility] [address] [id number] [address] [place] [address], [place] [address] Apr, [facility] [address] [id number] [address] [place] [address], [place] [address] Apr, [facility] [address] [id number] [address] [place] [address], [place] [address] Apr, [facility] [address] [id number] [address] [place] [address], [place] [address] Apr, [facility] [address] [id number] [address] [place] [address], [place] [address] 15 Mar, 2014 [facility] [address] [id number] [address] [place] [address], [place] [address] 15 Mar, 2014 [facility] [address] [id number] [address] [place] [address] Mar, [facility] [address] [id number] [address] [place] [address] Mar, [facility] [address] [id number] [address] [place] [address] 08 Mar, 2014 [facility] [address] [id number] [address] [place] [address], [place] [address] Mar, [facility] [address] [id number] [address] [place] [address], [place] [address] Feb, [facility] [address] [id number] [address] [place] [address] Feb, [facility] [address] [id number] [address] [place] [address] Feb, [facility] [address] [id number] [facility] [place] [address] Feb, [facility] [address] [id number] [address] [place] [address], [place] [address] Feb, [facility] [address] [id number] [address] [place] [address], [place] [address] Feb, [facility] [address] [id number] [address] [place] [address], [place] [address] Jan, [facility] [address] [id number] [address] [place] [address], [place] [address] Jan, [facility] [address] [id number] [address] [place] [address], [place] [address] Jan, [facility] [address] [id number] [address] [place] [address], [place] [address] Jan, [facility] [address] [id number] [address] [place] [address], [place] [address] Jan, [facility] [address] [id number] [address] [place] [address], [place] [address] Jan, [facility] [address] [id number] [address] [place] [address], [place] [address] Dec, [facility] [address] [id number] [address] [place] [address], [place] [address] Dec, [facility] [address] [id number] [address] [place] [address], [place] [address] Dec, [facility] [address] [id number] [address] [place] [address], [place] [address] Dec, [facility] [address] [id number] [address] [place] [address], [place] [address] Dec, [facility] [address] [id number] [address] [place] [address], [place] [address] November, [facility] [address] [id number] [facility] [place] [address] November, [facility] [address] [id number] [facility] [place] [address] November, [facility] [address] [id number] [address] [place] [address], [place] [address] November, [facility] [address] [id number] [address] [place] [address], [place] [address] November, [facility] [address] [id number] [address] [place] [address], [place] [address] November, [facility] [address] [id number] [address] [place] [address], [place] [address] November, [facility] [address] [id number] [address] [place] [address], [place] [address] November, [facility] [address] [id number] [address] [place] [address], [place] [address] Oct, [facility] [address] [id number] [address] [place] [address], [place] [address] Oct, [facility] [address] [id number] [address] [place] [address], [place] [address] Oct, [facility] [address] [id number] [address] [place] [address], [place] [address] Oct, [facility] [address] [id number] [address] [place] [address], [place] [address] Oct, [facility] [address] [id number] [address] [place] [address], [place] [address] Oct, [facility] [address] [id number] [address] [place] [address], [place] [address] Sep, [facility] [address] [id number] [address] [place] [address], [place] [address] Sep, [facility] [address] [id number] [address] [place] [address], [place] [address] Sep, [facility] [address] [id number] [facility] [place] [address] Sep, [facility] [address] [id number] [address] [place] [address], [place] [address] Sep, [facility] [address] [id number] [address] [place] [address], [place] [address] Sep, [facility] [address] [id number] [address] [place] [address], [place] [address] Aug, [facility] [address] [id number] [address] [place] [address], [place] [address] Aug, [facility] [address] [id number] [address] [place] [address], [place] [address] Jul, [facility] [address] [id number] [address] [place] [address], [place] [address] Jul, [facility] [address] [id number] [address] [place] [address], [place] [address] Jul, [facility] [address] [id number] [address] [place] [address], [place] [address] Jul, [facility] [address] [id number] [address] [place] [address], [place] [address] Jul, [facility] [address] [id number] [address] [place] [address], [place] [address] Jul, [facility] [address] [id number] [address] [place] [address], [place] [address] Jul, [facility] [address] [id number] [address] [place] [address], [place] [address] Jul, [facility] [address] [id number] [address] [place] [address], [place] [address] Jul, [facility] [address] [id number] [address] [place] [address], [place] [address] Jul, [facility] [address] [id number] [address] [place] [address], [place] [address] 07 Jul, 2013 [facility] [address] [id number] [address] [place] [address], [place] [address] 07 Jul, 2013 [facility] [address] [id number] [address] [place] [address], [place] [address] 23 Jun, 2013 [facility] [address] [id number] [address] [place] [address], [place] [address] Jun, [facility] [address] [id number] [address] [place] [address], [place] [address] Jun, [facility] [address] [id number] [address] [place] [address], [place] [address] Jun, [facility] [address] [id number] [address] [place] [address], [place] [address] Jun, [facility] [address] [id number] [address] [place] [address], [place] [address] Jun, [facility] [address] [id number] [address] [place] [address], [place] [address] Jun, [facility] [address] [id number] [address] [place] [address], [place] [address] Jun, [facility] [address] [id number] [address] [place] [address], [place] [address] 18 May, 2013 [facility] [address] [id number] [address] [place] [address], [place] [address] 18 May, 2013 [facility] [address] [id number] [address] [place] [address], [place] [address] 13 May, 2013 [facility] [address] [id number] [address] [place] [address], [place] [address] 13 May, 2013 [facility] [address] [id number] [address] [place] [address], [place] [address] 10 Apr, 2013 [facility] [address] [id number] [address] [place] [address], [place] [address] 10 Apr, 2013 [facility] [place] [address] [facility] [id number] [address] [place] [id number] Apr, [facility] [place] [address] [facility] [id number] [address] [place] [id number] Mar, [facility] [place] [address] [facility] [id number] [address] [place] [id number] Feb, [facility] [place] [address] [facility] [id number] [address] [place] [id number] Jan, [facility] [place] [address] [facility] [id number] [address] [place] [id number] Jan, [facility] [place] [address] [facility] [id number] [address] [place] [id number] Jan, IMMUNIZATIONS No Known Immunizations SOCIAL HISTORY [...]
--- OUTSIDE RECORDS SUMMARY | 2020-01-12 11:26 | XMS REPORT ---
Author Author Cj Agudelo Doctor Organization [facility] Address Unknown Phone Unavailable Care Team Providers Care Project Lead Name Role Phone Migration, Doctor Unavailable Unavailable PROBLEMS Type Condition ICD9-CM Code DYL43-QD Code Onset Dates Condition S tatus SNOMED Code Problem Pain in joint, lower leg 719.46 Activ e 400791818 Problem Attention deficit disorder o f childhood 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 314.00 Active 78443727 Problem Essential hypertension, benign 401.1 Active 4255885 Problem Anxiety state, unspecified 300.00 Act disha 313644972 Problem Other and unspecified hyperlipidemia 272.4 Active 67869564 Problem Major depressive disorder, recurrent episode, moderate 296 .32 Active 33696573 Problem PTSD (post-traumatic stress disorder) F43.10 Active 63425720 Problem Generalized anxiety disorder 300.02 A ctive 99519793 Problem Anxiety F41.9 Active 06048599 Problem Depressive disorder, not elsewhere classified 311 Active 83250534 Problem Attention deficit hyperactivity disorder F90.9 Active 592321547 Problem Major depression F32.9 Active 370 608251 Problem Generalized anxiety disorder F41.1 A ctive 14033204 Problem Major depressive disorder, recurrent, moderate F33 .1 Active 15042041 ALLERGIES No Information ENCOUNTERS Encounter Location Date Diagnosis [place] [address] [address] May, [place] [address] [address] May, Major depressive disorder, recurrent, mo derate F33.1 ; Anxiety F41.9 ; PTSD (post-traumatic stress disorder) F43.10 and Neurocognitive disorder R41.9 [place] [address] [address] Jun, [place] [address] [address] May, Generalized anxiety disorder F41.1 ; Luis Angel or depression F32.9 and Attention deficit hyperactivity disorder F90.9 [facility] [address] [id number] [place] [address] Feb, [facility] [address] [id number] [place] [address] Jan, [facility] [address] [id number] [place] [address] Dec, [facility] [address] [place] [id number] [place] [address] Dec, [facility] [address] [id number] [place] [address] Dec, Generalized anxiety disorder F41.1 ; Luis Angel or depression F32.9 and Attention deficit hyperactivity disorder F90.9 [facility] [address] [place] [id number] [place] [address] Oct, [facility] [id number] [place] [address] Oct, [facility] [id number] [place] [address] Sep, [facility] [id number] [place] [address] Sep, [facility] [id number] [place] [address] Aug, [facility] [id number] [place] [address] Aug, Generalized anxiety disorder F41.1 ; Luis Angel or depression F32.9 and Attention deficit hyperactivity disorder F90.9 [facility] [id number] [place] [address] Aug, [facility] [id number] [place] [address] Aug, [facility] [address] [id number] [place] [address] Jun, [facility] [id number] [place] [address] Jun, [facility] [id number] [place] [address] Jun, Attention deficit hyperactivity disorder F90.9 ; Generalized anxiety disorder F41.1 and Major depression F32.9 [facility] [id number] [place] [address] Jun, [facility] [address] [place] [id number] [place] [address] Apr, [facility] [id number] [place] [address] Mar, [facility] [address] [address] Mar, [facility] [id number] [place] [address] Feb, ADD (attention deficit disorder) 314.00 ; Major depressive disorder, recurrent episode, moderate 296.32 and Generalized anxiety disorder 300.02 [facility] [id number] [place] [address] Feb, [facility] [id number] [place] [address] Feb, [facility] [id number] [place] [address] Jan, [facility] [id number] [place] [address] Jan, [facility] [id number] [place] [address] Jan, [facility] [id number] [place] [address] Jan, [facility] [id number] [place] [address] Dec, [facility] [address] [id number] [place] [address] Dec, [facility] [address] [id number] [place] [address] Dec, [facility] [id number] [place] [address] November, Attention deficit disorder of childhood 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 314.00 ; Generalized anxiety disorder 300.02 and Major depressive disorder, recurrent episode, moderate 296.32 [facility] [address] [place] [address] [id number] [place] [address] November, [facility] [address] [address] November, [facility] [address] [address] [id number] [place] [address] November, Anxiety state 300.00 [facility] [address] [address] Oct, [facility] [address] [address] Oct, [facility] [address] [place] [id number] [place] [address] Sep, [facility] [address] [place] [address] [id number] [place] [address] Sep, [facility] [address] [address] Sep, [facility] [address] [place] [address] [id number] [place] [address] Sep, [facility] [address] [place] [address] [id number] [place] [address] Sep, [facility] [address] [place] [address] [id number] [place] [address] Sep, [facility] [address] [place] [id number] [place] [address] Aug, [facility] [address] [place] [id number] [place] [address] Aug, [facility] [address] [place] [id number] [place] [address] Aug, [facility] [place] [facility] [address] [id number] [place] [address] Aug, 2014 [facility] [place] [facility] [address] [id number] [place] [address] Aug, 2014 [facility] [place] [facility] [address] [id number] [place] [address] Aug, 2014 [facility] [place] [facility] [address] [id number] [place] [address] Aug, [facility] [place] [facility] [address] [id number] [place] [address] Aug, [facility] [place] [facility] [address] [id number] [place] [address] Jul, [facility] [place] [facility] [address] [id number] [place] [address] Jul, [facility] [place] [facility] [address] [id number] [place] [address] Jul, [facility] [place] [facility] [address] [id number] [place] [address] Jul, [facility] [place] [facility] [address] [id number] [place] [address] Jul, [facility] [place] [facility] [address] [id number] [place] [address] Jul, [facility] [place] [facility] [address] [id number] [place] [address] Jun, [facility] [place] [facility] [address] [id number] [place] [address] Jun, [facility] [place] [facility] [address] [id number] [place] [address] Jun, [facility] [place] [facility] [address] [id number] [place] [address] Jun, [facility] [place] [facility] [address] [id number] [place] [address] Jun, [facility] [place] [facility] [address] [id number] [place] [address] Jun, [facility] [place] [facility] [address] [facility] [id number] [place] [address] May, [facility] [place] [facility] [address] [id number] [place] [address] May, [facility] [place] [facility] [address] [id number] [place] [address] May, [facility] [place] [facility] [address] [id number] [place] [address] May, [facility] [place] [facility] [address] [id number] [place] [address] May, [facility] [place] [facility] [address] [id number] [place] [address] May, [facility] [place] [facility] [address] [id number] [place] [address] May, [facility] [place] [facility] [address] [id number] [place] [address] May, [facility] [place] [facility] [address] [id number] [place] [address] May, [facility] [place] [facility] [address] [id number] [place] [address] May, [facility] [place] [facility] [address] [id number] [place] [address] Apr, [facility] [place] [facility] [address] [id number] [place] [address] Apr, [facility] [place] [facility] [address] [id number] [place] [address] Apr, [facility] [place] [facility] [address] [id number] [place] [address] Apr, [facility] [place] [facility] [address] [id number] [place] [address] Apr, [facility] [place] [facility] [address] [id number] [place] [address] Apr, [facility] [place] [facility] [address] [id number] [place] [address] Apr, [facility] [place] [facility] [address] [facility]] [id number] [place] [address] Apr, [facility] [place] [facility] [address] [facility]NOTE [facility]] [id number] [place] [address] Mar, [facility] [place] [facility] [address] [id number] [place] [address] 15 Mar, 2014 [facility] [place] [facility] [address] [facility]] [id number] [place] [address] Mar, [facility] [place] [facility] [address] [facility]] [id number] [place] [address] Mar, [facility] [place] [facility] [address] [id number] [place] [address] Mar, [facility] [place] [facility] [address] [id number] [place] [address] Mar, [facility] [place] [facility] [address] [id number] [place] [address] Feb, [facility] [place] [facility] [address] [id number] [place] [address] Feb, [facility] [place] [facility] [address] [id number] [place] [address] Feb, [facility] [place] [facility] [address] [id number] [place] [address] Feb, [facility] [place] [facility] [address] [id number] [place] [address] Feb, [facility] [place] [facility] [address] [facility]NOTE [facility]] [id number] [place] [address] Feb, [facility] [place] [facility] [address] [id number] [place] [address] Jan, [facility] [place] [facility] [address] [id number] [place] [address] Jan, [facility] [place] [facility] [address] [id number] [place] [address] Jan, [facility] [place] [facility] [address] [id number] [facility] [place] [address] Jan, [facility] [place] [facility] [address] [facility] [address]] [id number] [facility] [place] [place] [address] Jan, [facility] [place] [facility] [address] [facility] [address]] [id number] [facility] [place] [address] Jan, [facility] [place] [facility] [address] [facility]NOTE [facility]] [id number] [place] [address] Dec, [facility] [place] [facility] [address] [facility]NOTE [facility]] [id number] [place] [address] Dec, [facility] [place] [facility] [address] [facility] [address]] [id number] [facility] [place] [address] Dec, [facility] [place] [facility] [address] [facility]NOTE 3] [id number] [place] [address] Dec, [facility] [place] [facility] [address] [id number] [facility] [place] [address] Dec, [facility] [place] [facility] [address] [facility]] [id number] [facility] [place] [address] November, [facility] [place] [facility] [address] [id number] [facility] [place] [address] November, [facility] [place] [facility] [address] [id number] [place] [address] November, [facility] [place] [facility] [address] [id number] [place] [address] November, [facility] [place] [facility] [address] [facility]NOTE 3] [id number] [facility] [place] [address] November, [facility] [place] [facility] [address] [facility]NOTE [facility]] [id number] [place] [address] November, [facility] [place] [facility] [address] [facility]] [id number] [place] [address] November, [facility] [place] [facility] [address] [id number] [place] [address] November, [facility] [place] [facility] [address] [id number] [place] [address] Oct, [facility] [place] [facility] [address] [facility]NOTE [facility]] [id number] [facility] [place] [address] Oct, [facility] [place] [facility] [address] [facility]NOTE 3] [id number] [place] [address] Oct, [facility] [place] [facility] [address] [id number] [place] [address] Oct, [facility] [place] [facility] [address] [id number] [place] [address] Oct, [facility] [place] [facility] [address] [facility]] [id number] [place] [address] Oct, [facility] [place] [facility] [address] [id number] [place] [address] Sep, [facility] [place] [facility] [address] [id number] [place] [address] Sep, [facility] [place] [facility] [address] [id number] [place] [address] Sep, [facility] [place] [facility] [address] [id number] [place] [address] Sep, [facility] [place] [facility] [address] [id number] [place] [address] Sep, [facility] [place] [facility] [address] [id number] [place] [address] Sep, [facility] [place] [facility] [address] [id number] [place] [address] Aug, [facility] [place] [facility] [address] [facility]NOTE 3] [id number] [place] [address] Aug, [facility] [place] [facility] [address] [id number] [place] [address] Jul, [facility] [place] [facility] [address] [id number] [place] [address] Jul, [facility] [place] [facility] [address] [id number] [place] [address] Jul, [facility] [place] [facility] [address] [id number] [place] [address] 17 Jul, 2013 [facility] [place] [facility] [address] [id number] [place] [address] 15 Jul, 2013 [facility] [place] [facility] [address] [id number] [place] [address] 15 Jul, 2013 [facility] [place] [facility] [address] [id number] [place] [address] 13 Jul, 2013 [facility] [place] [facility] [address] [id number] [place] [address] 13 Jul, 2013 [facility] [place] [facility] [address] [id number] [place] [address] 07 Jul, 2013 [facility] [place] [facility] [address] [id number] [place] [address] 07 Jul, 2013 [facility] [place] [facility] [address] [id number] [place] [address] 07 Jul, 2013 [facility] [place] [facility] [address] [id number] [place] [address] 07 Jul, 2013 [facility] [place] [facility] [address] [id number] [place] [address] Jun, [facility] [place] [facility] [address] [id number] [place] [address] 23 Jun, 2013 [facility] [place] [facility] [address] [id number] [place] [address] 20 Jun, 2013 [facility] [place] [facility] [address] [id number] [place] [address] 20 Jun, 2013 [facility] [place] [facility] [address] [id number] [place] [address] 13 Jun, 2013 [facility] [place] [facility] [address] [id number] [place] [address] 13 Jun, 2013 [facility] [place] [facility] [address] [id number] [place] [address] 11 Jun, 2013 [facility] [place] [facility] [address] [id number] [place] [address] Jun, [facility] [id number] [place] [address] May, [facility] [id number] [place] [address] May, [facility] [id number] [place] [address] May, [facility] [id number] [place] [address] May, [facility] [id number] [place] [address] Apr, [facility] [address] [address] Apr, [facility] [id number] [place] [address] Apr, [facility] [id number] [place] [address] Mar, [facility] [id number] [place] [address] Feb, [facility] [id number] [place] [address] Jan, [facility] [id number] [place] [address] Jan, [facility] [id number] [place] [address] Jan, IMMUNIZATIONS No Known Immunizations SOCIAL HISTORY [...]
--- OUTSIDE RECORDS SUMMARY | 2020-01-12 11:27 | XMS REPORT ---
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 Name Role Phone JUAN JOSÉ PADILLA Unavailable PROBLEMS Type Condition ICD9-CM Code BIS16-HP Code Onset Dates Condition S tatus SNOMED Code Problem Pain in joint, lower leg 719.46 Activ e 187069531 Problem Attention deficit disorder o f childhood 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 314.00 Active 57369491 Problem Essential hypertension, benign 401.1 Active 8043368 Problem Anxiety state, unspecified 300.00 Act disha 700497595 Problem Other and unspecified hyperlipidemia 272.4 Active 29772502 Problem Major depressive disorder, recurrent episode, moderate 296 .32 Active 48219360 Problem PTSD (post-traumatic stress disorder) F43.10 Active 75744222 Problem Generalized anxiety disorder 300.02 A ctive 86055115 Problem Anxiety F41.9 Active 55258659 Problem Depressive disorder, not elsewhere classified 311 Active 51422052 Problem Attention deficit hyperactivity disorder F90.9 Active 619173978 Problem Major depression F32.9 Active 370 814302 Problem Generalized anxiety disorder F41.1 A ctive 80567885 Problem Major depressive disorder, recurrent, moderate F33 .1 Active 55211373 ALLERGIES No Information ENCOUNTERS Encounter Location Date Diagnosis [place] [id number] [address] May, [place] [address] [address] May, Major depressive disorder, recurrent, mo derate F33.1 ; Anxiety F41.9 ; PTSD (post-traumatic stress disorder) F43.10 and Neurocognitive disorder R41.9 [place] [address] [address] 13 Jun, 2016 [facility] [address] [address] May, Generalized anxiety disorder F41.1 ; Luis Angel or depression F32.9 and Attention deficit hyperactivity disorder F90.9 [facility] [address] [address] Feb, [facility] [address] [place] [id number] [place] [address] Jan, [facility] [address] [address] Dec, [facility] [address] [address] Dec, [facility] [address] [address] Dec, Generalized anxiety disorder F41.1 ; Luis Angel or depression F32.9 and Attention deficit hyperactivity disorder F90.9 [facility] [address] [address] Oct, [facility] [address] [address] Oct, [facility] [address] [address] Sep, [facility] [address] [address] Sep, [facility] [address] [address] Aug, [facility] [address] [address] Aug, Generalized anxiety disorder F41.1 ; Luis Angel or depression F32.9 and Attention deficit hyperactivity disorder F90.9 [facility] [address] [address] Aug, [facility] [address] [address] Aug, [facility] [address] [address] Jun, [facility] [address] [place] [id number] [place] [address] Jun, [facility] [address] [address] Jun, Attention deficit hyperactivity disorder F90.9 ; Generalized anxiety disorder F41.1 and Major depression F32.9 [facility] [address] [address] Jun, [facility] [address] [address] Apr, [facility] [address] [address] Mar, [facility] [address] [address] Mar, [facility] [address] [address] Feb, ADD (attention deficit disorder) 314.00 ; Major depressive disorder, recurrent episode, moderate 296.32 and Generalized anxiety disorder 300.02 [facility] [address] [address] Feb, [facility] [address] [address] Feb, [facility] [address] [address] Jan, [facility] [address] [address] Jan, [facility] [address] [address] Jan, [facility] [address] [address] Jan, [facility] [address] [place] [id number] [place] [address] Dec, [facility] [address] [address] Dec, [facility] [address] [place] [id number] [place] [address] Dec, [facility] [address] [place] [address] [id number] [place] [address] November, Attention deficit disorder of childhood 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 314.00 ; Generalized anxiety disorder 300.02 and Major depressive disorder, recurrent episode, moderate 296.32 [facility] [address] [place] [id number] [place] [address] November, [facility] [address] [place] [id number] [place] [address] November, [facility] [address] [place] [id number] [place] [address] November, Anxiety state 300.00 [facility] [address] [place] [id number] [place] [address] Oct, [facility] [address] [place] [id number] [place] [address] Oct, [facility] [address] [place] [id number] [place] [address] Sep, [facility] [address] [place] [id number] [place] [address] Sep, [facility] [address] [place] [id number] [place] [address] Sep, [facility] [address] [place] [id number] [place] [address] Sep, [facility] [address] [place] [id number] [place] [address] Sep, [facility] [address] [place] [id number] [place] [address] Sep, [facility] [address] [place] [id number] [place] [address] Aug, [facility] [address] [place] [id number] [place] [address] Aug, [facility] [address] [id number] [place] [address] 10 Aug, 2014 [facility] [address] [id number] [place] [address] Aug, 2014 [facility] [address] [id number] [place] [address] Aug, 2014 [facility] [address] [id number] [place] [address] Aug, 2014 [facility] [address] [id number] [place] [address] Aug, [facility] [address] [id number] [place] [address] Aug, [facility] [address] [id number] [place] [address] Jul, [facility] [address] [id number] [place] [address] Jul, [facility] [address] [id number] [place] [address] Jul, [facility] [address] [id number] [place] [address] Jul, [facility] [address] [id number] [place] [address] Jul, [facility] [address] [id number] [place] [address] Jul, [facility] [address] [id number] [place] [address] Jun, [facility] [address] [id number] [place] [address] Jun, [facility] [address] [id number] [place] [address] Jun, [facility] [address] [id number] [place] [address] Jun, [facility] [address] [id number] [place] [address] Jun, [facility] [address] [facility] [id number] [place] [address] Jun, [facility] [address] [facility] [id number] [place] [address] May, [facility] [address] [id number] [place] [address] May, [facility] [address] [id number] [place] [address] May, [facility] [address] [facility] [id number] [place] [address] May, [facility] [address] [id number] [place] [address] May, [facility] [address] [id number] [place] [address] May, [facility] [address] [id number] [place] [address] May, [facility] [address] [id number] [place] [address] May, [facility] [address] [id number] [place] [address] May, [facility] [address] [id number] [place] [address] May, [facility] [address] [id number] [place] [address] Apr, [facility] [address] [facility] [id number] [place] [address] Apr, [facility] [address] [id number] [place] [address] Apr, [facility] [address] [id number] [place] [address] Apr, [facility] [address] [id number] [place] [address] Apr, [facility] [address] [id number] [place] [address] Apr, [facility] [address] [id number] [place] [address] Apr, [facility] [address] [facility] [id number] [place] [address] Apr, [facility] [address] [id number] [place] [address] 15 Mar, 2014 [facility] [address] [facility] [id number] [place] [address] 15 Mar, 2014 [facility] [address] [id number] [place] [address] Mar, [facility] [address] [id number] [place] [address] Mar, [facility] [address] [id number] [place] [address] Mar, [facility] [address] [id number] [place] [address] Mar, [facility] [address] [id number] [place] [address] Feb, [facility] [address] [id number] [place] [address] Feb, [facility] [address] [id number] [place] [address] Feb, [facility] [address] [id number] [place] [address] Feb, [facility] [address] [facility] [id number] [place] [address] Feb, [facility] [address] [id number] [place] [address] Feb, [facility] [address] [id number] [place] [address] Jan, [facility] [address] [id number] [place] [address] Jan, [facility] [address] [id number] [place] [address] Jan, [facility] [address] [facility] [id number] [place] [address] Jan, [facility] [address] [facility] [id number] [place] [address] Jan, [facility] [address] [id number] [place] [address] Jan, [facility] [address] [facility] [id number] [place] [address] Dec, [facility] [address] [id number] [place] [address] Dec, [facility] [address] [id number] [place] [address] Dec, [facility] [address] [id number] [place] [address] Dec, [facility] [address] [id number] [place] [address] Dec, [facility] [address] [id number] [place] [address] November, [facility] [address] [id number] [place] [address] November, [facility] [address] [id number] [place] [address] November, [facility] [address] [id number] [place] [address] November, [facility] [address] [facility] [id number] [place] [address] November, [facility] [address] [id number] [place] [address] November, [facility] [address] [id number] [place] [address] November, [facility] [address] [id number] [place] [address] November, [facility] [address] [facility] [id number] [place] [address] Oct, [facility] [address] [facility] [id number] [place] [address] Oct, [facility] [address] [id number] [place] [address] Oct, [facility] [address] [id number] [place] [address] Oct, [facility] [address] [facility] [id number] [place] [address] Oct, [facility] [address] [id number] [place] [address] Oct, [facility] [address] [id number] [place] [address] Sep, [facility] [address] [id number] [place] [address] Sep, [facility] [address] [id number] [place] [address] Sep, [facility] [address] [id number] [place] [address] Sep, [facility] [address] [id number] [place] [address] Sep, [facility] [address] [id number] [place] [address] Sep, [facility] [address] [facility] [id number] [place] [address] Aug, [facility] [address] [facility] [id number] [place] [address] Aug, [facility] [address] [id number] [place] [address] Jul, [facility] [address] [id number] [place] [address] Jul, [facility] [address] [id number] [place] [address] 17 Jul, 2013 [facility] [address] [facility] [id number] [place] [address] 17 Jul, 2013 [facility] [address] [id number] [place] [address] 15 Jul, 2013 [facility] [address] [id number] [place] [address] 15 Jul, 2013 [facility] [address] [id number] [place] [address] 13 Jul, 2013 [facility] [address] [id number] [place] [address] Jul, [facility] [address] [id number] [place] [address] Jul, [facility] [address] [id number] [place] [address] Jul, [facility] [address] [id number] [place] [address] 07 Jul, 2013 [facility] [address] [id number] [place] [address] Jul, [facility] [address] [id number] [place] [address] Jun, [facility] [address] [id number] [place] [address] Jun, [facility] [address] [id number] [place] [address] Jun, [facility] [address] [id number] [place] [address] 20 Jun, 2013 [facility] [address] [id number] [place] [address] 13 Jun, 2013 [facility] [address] [id number] [place] [address] 13 Jun, 2013 [facility] [address] [id number] [place] [address] Jun, [facility] [address] [id number] [place] [address] Jun, [facility] [address] [id number] [place] [address] May, [facility] [id number] [place] [address] May, [facility] [address] [id number] [place] [address] May, [facility] [address] [id number] [place] [address] May, [facility] [id number] [place] [address] Apr, [facility] [id number] [place] [address] Apr, [facility] [id number] [place] [address] Apr, [facility] [id number] [place] [address] Mar, [facility] [id number] [place] [address] Feb, [facility] [id number] [place] [address] Jan, [facility] [id number] [place] [address] Jan, [facility] [id number] [place] [address] Jan, IMMUNIZATIONS No Known Immunizations SOCIAL HISTORY Never Assessed REASON FOR VISIT PLAN OF CARE VITAL SIGNS Height 69 in 2013-10-16 Weight 186 lbs 2013-10-16 Temperature 97.8 degrees Fahrenheit 2013-10-16 Heart Rate 90 bpm 2013-10-16 Respiratory Rate 20 2013-10-16 Blood pressure systolic 148 mmHg 2013-10-16 Blood pressure diastolic 82 mmHg 2013-10-16 MEDICATIONS Unknown Medications RESULTS No Results PROCEDURES Procedure Date Ordered Result Body Site URINALYSIS, AUTO, W/O SCOPE October 16, 2013 INSTRUCTIONS MEDICATIONS ADMINISTERED No Known Medications MEDICAL [...]
--- OUTSIDE RECORDS SUMMARY | 2020-01-12 11:27 | XMS REPORT ---
Author Author Cj Agudelo Doctor Organization [facility] Address Unknown Phone Unavailable Care Team Providers Care Evaluation Analyst Name Role Phone Migration, Doctor Unavailable Unavailable PROBLEMS Type Condition ICD9-CM Code [id number] Code Onset Dates Condition S tatus SNOMED Code Problem Pain in joint, lower leg 719.46 Activ e 101028531 Problem Attention deficit disorder o f childhood 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 314.00 Active 53745089 Problem Essential hypertension, benign 401.1 Active 8519111 Problem Anxiety state, unspecified 300.00 Act disha 721809253 Problem Other and unspecified hyperlipidemia 272.4 Active 52550444 Problem Major depressive disorder, recurrent episode, moderate 296 .32 Active 37013610 Problem PTSD (post-traumatic stress disorder) F43.10 Active 73057598 Problem Generalized anxiety disorder 300.02 A ctive 70170777 Problem Anxiety F41.9 Active 54452076 Problem Depressive disorder, not elsewhere classified 311 Active 15678203 Problem Attention deficit hyperactivity disorder F90.9 Active 614790447 Problem Major depression F32.9 Active 370 602490 Problem Generalized anxiety disorder F41.1 A ctive 76960266 Problem Major depressive disorder, recurrent, moderate F33 .1 Active 43469168 ALLERGIES No Information ENCOUNTERS Encounter Location Date Diagnosis [place] [address] [address] May, [place] [address] [address] May, Major depressive disorder, recurrent, mo derate F33.1 ; Anxiety F41.9 ; PTSD (post-traumatic stress disorder) F43.10 and Neurocognitive disorder R41.9 [place] [address] [address] Jun, [place] [address] [address] May, Generalized anxiety disorder F41.1 ; [place] or depression F32.9 and Attention deficit hyperactivity disorder F90.9 [facility] [address] [id number] [place] [address] Feb, [facility] [address] [id number] [place] [address] Jan, [facility] [address] [id number] [place] [address] Dec, [facility] [address] [place] [id number] [place] [address] Dec, [facility] [address] [id number] [place] [address] Dec, Generalized anxiety disorder F41.1 ; [place] or depression F32.9 and Attention deficit hyperactivity disorder F90.9 [facility] [address] [place] [id number] [place] [address] Oct, [facility] [address] [place] [id number] [place] [address] Oct, [facility] [address] [place] [id number] [place] [address] Sep, [facility] [address] [place] [id number] [place] [address] Sep, [facility] [address] [place] [id number] [place] [address] Aug, [facility] [address] [place] [id number] [place] [address] Aug, Generalized anxiety disorder F41.1 ; [place] Angel or depression F32.9 and Attention deficit hyperactivity disorder F90.9 [facility] [address] [place] [id number] [place] [address] Aug, [facility] [address] [place] [id number] [place] [address] Aug, [facility] [address] [id number] [place] [address] Jun, [facility] [address] [place] [id number] [place] [address] Jun, [facility] [address] [place] [id number] [place] [address] Jun, Attention deficit hyperactivity disorder F90.9 ; Generalized anxiety disorder F41.1 and Major depression F32.9 [facility] [address] [place] [id number] [place] [address] Jun, [facility] [address] [place] [id number] [place] [address] Apr, [facility] [address] [place] [id number] [place] [address] Mar, [facility] [address] [address] Mar, [facility] [address] [place] [id number] [place] [address] Feb, ADD (attention deficit disorder) 314.00 ; Major depressive disorder, recurrent episode, moderate 296.32 and Generalized anxiety disorder 300.02 [facility] [address] [place] [id number] [place] [address] Feb, [facility] [address] [place] [id number] [place] [address] Feb, [facility] [address] [place] [id number] [place] [address] Jan, [facility] [address] [place] [id number] [place] [address] Jan, [facility] [address] [place] [id number] [place] [address] Jan, [facility] [address] [place] [id number] [place] [address] Jan, [facility] [address] [place] [id number] [place] [address] Dec, [facility] [address] [place] [id number] [place] [address] Dec, [facility] [address] [place] [id number] [place] [address] Dec, [facility] [address] [place] [id number] [place] [address] November, Attention deficit disorder of childhood 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 314.00 ; Generalized anxiety disorder 300.02 and Major depressive disorder, recurrent episode, moderate 296.32 [facility] [address] [place] [id number] [place] [address] November, [facility] [address] [address] November, [facility] [address] [place] [id number] [place] [address] November, Anxiety state 300.00 [facility] [address] [address] Oct, [facility] [address] [address] Oct, [facility] [address] [place] [id number] [place] [address] Sep, [facility] [address] [place] [id number] [place] [address] Sep, [facility] [address] [address] Sep, [facility] [address] [place] [id number] [place] [address] Sep, [facility] [address] [place] [id number] [place] [address] Sep, [facility] [address] [place] [id number] [place] [address] Sep, [facility] [address] [place] [id number] [place] [address] Aug, [facility] [address] [place] [id number] [place] [address] Aug, [facility] [address] [place] [id number] [place] [address] Aug, [facility] [place] [facility] [address] [id number] [place] [address] Aug, 2014 [facility] [place] [facility] [address] [id number] [place] [address] Aug, 2014 [facility] [place] [facility] [address] [id number] [place] [address] Aug, 2014 [facility] [place] [facility] [address] [id number] [place] [address] Aug, [facility] [place] [facility] [address] [id number] [place] [address] Aug, [facility] [place] [facility] [address] [id number] [place] [address] Jul, [facility] [place] [facility] [address] [id number] [place] [address] Jul, [facility] [place] [facility] [address] [id number] [place] [address] Jul, [facility] [place] [facility] [address] [id number] [place] [address] Jul, [facility] [place] [facility] [address] [id number] [place] [address] Jul, [facility] [place] [facility] [address] [id number] [place] [address] Jul, [facility] [place] [facility] [address] [id number] [place] [address] Jun, [facility] [place] [facility] [address] [id number] [place] [address] Jun, [facility] [place] [facility] [address] [id number] [place] [address] Jun, [facility] [place] [facility] [address] [id number] [place] [address] Jun, [facility] [place] [facility] [address] [id number] [place] [address] Jun, [facility] [place] [facility] [address] [id number] [place] [address] Jun, [facility] [place] [facility] [address] [facility] [id number] [place] [address] May, [facility] [place] [facility] [address] [id number] [place] [address] May, [facility] [place] [facility] [address] [id number] [place] [address] May, [facility] [place] [facility] [address] [id number] [place] [address] May, [facility] [place] [facility] [address] [id number] [place] [address] May, [facility] [place] [facility] [address] [id number] [place] [address] May, [facility] [place] [facility] [address] [id number] [place] [address] May, [facility] [place] [facility] [address] [id number] [place] [address] May, [facility] [place] [facility] [address] [id number] [place] [address] May, [facility] [place] [facility] [address] [id number] [place] [address] May, [facility] [place] [facility] [address] [id number] [place] [address] Apr, [facility] [place] [facility] [address] [id number] [place] [address] Apr, [facility] [place] [facility] [address] [id number] [place] [address] Apr, [facility] [place] [facility] [address] [id number] [place] [address] Apr, [facility] [place] [facility] [address] [id number] [place] [address] Apr, [facility] [place] [facility] [address] [id number] [place] [address] Apr, [facility] [place] [facility] [address] [id number] [place] [address] Apr, [facility] [place] [facility] [address] [facility] [id number] [place] [address] Apr, [facility] [place] [facility] [address] [facility] [id number] [place] [address] Mar, [facility] [place] [facility] [address] [id number] [place] [address] 15 Mar, 2014 [facility] [place] [facility] [address] [facility] [id number] [place] [address] Mar, [facility] [place] [facility] [address] [facility] [id number] [place] [address] Mar, [facility] [place] [facility] [address] [id number] [place] [address] Mar, [facility] [place] [facility] [address] [id number] [place] [address] Mar, [facility] [place] [facility] [address] [id number] [place] [address] Feb, [facility] [place] [facility] [address] [id number] [place] [address] Feb, [facility] [place] [facility] [address] [id number] [place] [address] Feb, [facility] [place] [facility] [address] [id number] [place] [address] Feb, [facility] [place] [facility] [address] [id number] [place] [address] Feb, [facility] [place] [facility] [address] [facility] [id number] [place] [address] Feb, [facility] [place] [facility] [address] [id number] [place] [address] Jan, [facility] [place] [facility] [address] [id number] [place] [address] Jan, [facility] [place] [facility] [address] [id number] [place] [address] Jan, [facility] [place] [facility] [address] [id number] [facility] [place] [address] Jan, [facility] [place] [facility] [address] [facility] [id number] [facility] [place] [address] Jan, [facility] [place] [facility] [address] [facility] [id number] [facility] [place] [address] Jan, [facility] [place] [facility] [address] [facility] [id number] [place] [address] Dec, [facility] [place] [facility] [address] [facility] [id number] [place] [address] Dec, [facility] [place] [facility] [address] [facility] [id number] [facility] [place] [address] Dec, [facility] [place] [facility] [address] [facility] [id number] [place] [address] Dec, [facility] [place] [facility] [address] [id number] [facility] [place] [address] Dec, [facility] [place] [facility] [address] [facility] [id number] [facility] [place] [address] November, [facility] [place] [facility] [address] [id number] [facility] [place] [address] November, [facility] [place] [facility] [address] [id number] [place] [address] November, [facility] [place] [facility] [address] [id number] [place] [address] November, [facility] [place] [facility] [address] [facility] [id number] [facility] [place] [address] November, [facility] [place] [facility] [address] [facility] [id number] [place] [address] November, [facility] [place] [facility] [address] [facility] [id number] [place] [address] November, [facility] [place] [facility] [address] [id number] [place] [address] November, [facility] [place] [facility] [address] [id number] [place] [address] Oct, [facility] [place] [facility] [address] [facility] [id number] [facility] [place] [address] Oct, [facility] [place] [facility] [address] [facility] [id number] [place] [address] Oct, [facility] [place] [facility] [address] [id number] [place] [address] Oct, [facility] [place] [facility] [address] [id number] [place] [address] Oct, [facility] [place] [facility] [address] [facility] [id number] [place] [address] Oct, [facility] [place] [facility] [address] [id number] [place] [address] Sep, [facility] [place] [facility] [address] [id number] [place] [address] Sep, [facility] [place] [facility] [address] [id number] [place] [address] Sep, [facility] [place] [facility] [address] [id number] [place] [address] Sep, [facility] [place] [facility] [address] [id number] [place] [address] Sep, [facility] [place] [facility] [address] [id number] [place] [address] Sep, [facility] [place] [facility] [address] [id number] [place] [address] Aug, [facility] [place] [facility] [address] [facility] [id number] [place] [address] Aug, [facility] [place] [facility] [address] [id number] [place] [address] Jul, [facility] [place] [facility] [address] [id number] [place] [address] Jul, [facility] [place] [facility] [address] [id number] [place] [address] Jul, [facility] [place] [facility] [address] [id number] [place] [address] 17 Jul, 2013 [facility] [place] [facility] [address] [id number] [place] [address] 15 Jul, 2013 [facility] [place] [facility] [address] [id number] [place] [address] 15 Jul, 2013 [facility] [place] [facility] [address] [id number] [place] [address] 13 Jul, 2013 [facility] [place] [facility] [address] [id number] [place] [address] 13 Jul, 2013 [facility] [place] [facility] [address] [id number] [place] [address] 07 Jul, 2013 [facility] [place] [facility] [address] [id number] [place] [address] 07 Jul, 2013 [facility] [place] [facility] [address] [id number] [place] [address] 07 Jul, 2013 [facility] [place] [facility] [address] [id number] [place] [address] 07 Jul, 2013 [facility] [place] [facility] [address] [id number] [place] [address] Jun, [facility] [place] [facility] [address] [id number] [place] [address] 23 Jun, 2013 [facility] [place] [facility] [address] [id number] [place] [address] 20 Jun, 2013 [facility] [place] [facility] [address] [id number] [place] [address] 20 Jun, 2013 [facility] [place] [facility] [address] [id number] [place] [address] 13 Jun, 2013 [facility] [place] [facility] [address] [id number] [place] [address] 13 Jun, 2013 [facility] [place] [facility] [address] [id number] [place] [address] 11 Jun, 2013 [facility] [place] [facility] [address] [id number] [place] [address] Jun, [facility] [id number] [place] [address] May, [facility] [address] [place] [id number] [place] [address] May, [facility] [address] [place] [id number] [place] [address] May, [facility] [address] [id number] [place] [address] May, [facility] [id number] [place] [address] Apr, [facility] [address] [address] Apr, [facility] [address] [id number] [place] [address] Apr, [facility] [id number] [place] [address] Mar, [facility] [id number] [place] [address] Feb, [facility] [id number] [place] [address] Jan, [facility] [id number] [place] [address] Jan, [facility] [id number] [place] [address] Jan, IMMUNIZATIONS No Known Immunizations SOCIAL HISTORY [...]
--- OUTSIDE RECORDS SUMMARY | 2020-01-12 11:27 | XMS REPORT ---
Author Author Cj PADILLA Organization [facility] Address [address] [place] [address] Care Team Providers Care Contemporary Or Modern Dancer Name Role Phone JUAN JOSÉ PADILLA Unavailable PROBLEMS Type Condition ICD9-CM Code ZUE17-XO Code Onset Dates Condition S tatus SNOMED Code Problem Pain in joint, lower leg 719.46 Activ e 399217273 Problem Depressive disorder, not elsewhere classified 311 Active 45242612 Problem Essential hypertension, benign 401.1 Active 5243758 Problem Other and unspecified hyperlipidemia 272.4 Active 69530232 Problem Major depressive disorder, recurrent episode, moderate 296 .32 Active 96823519 Problem Attention deficit disorder o f childhood 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 314.00 Active 03153197 Problem Anxiety F41.9 Active 17958899 Problem Anxiety state, unspecified 300.00 Act disha 511175254 Problem PTSD (post-traumatic stress disorder) F43.10 Active 63061377 Problem Generalized anxiety disorder 300.02 A ctive 99223137 Problem Attention deficit hyperactivity disorder F90.9 Active 626505009 Problem Major depression F32.9 Active 370 537448 Problem Generalized anxiety disorder F41.1 A ctive 80054423 Problem Major depressive disorder, recurrent, moderate F33 .1 Active 36469398 ALLERGIES No Information ENCOUNTERS Encounter Location Date Diagnosis [facility] [address] [address] May, [facility] [address] [address] May, Major depressive disorder, recurrent, mo derate F33.1 ; Anxiety F41.9 ; PTSD (post-traumatic stress disorder) F43.10 and Neurocognitive disorder R41.9 [facility] [address] [address] 13 Jun, 2016 [facility] [address] [address] May, Generalized anxiety disorder F41.1 ; Luis Angel or depression F32.9 and Attention deficit hyperactivity disorder F90.9 [facility] [address] [address] Feb, [facility] [id number] [place] [address] Jan, [facility] [address] [address] Dec, [facility] [address] [address] Dec, [facility] [address] [address] Dec, Generalized anxiety disorder F41.1 ; Luis Angel or depression F32.9 and Attention deficit hyperactivity disorder F90.9 [facility] [address] [address] Oct, [facility] [address] [address] Oct, [facility] [address] [address] Sep, [facility] [address] [address] Sep, [facility] [address] [address] Aug, [facility] [address] [address] Aug, Generalized anxiety disorder F41.1 ; Luis Angel or depression F32.9 and Attention deficit hyperactivity disorder F90.9 [facility] [address] [address] Aug, [facility] [address] [address] Aug, [facility] [address] [address] Jun, [facility] [id number] [place] [address] Jun, [facility] [address] [address] Jun, Attention deficit hyperactivity disorder F90.9 ; Generalized anxiety disorder F41.1 and Major depression F32.9 [facility] [address] [address] Jun, [facility] [address] [address] Apr, [facility] [address] [address] Mar, [facility] [address] [address] Mar, [facility] [address] [address] Feb, ADD (attention deficit disorder) 314.00 ; Major depressive disorder, recurrent episode, moderate 296.32 and Generalized anxiety disorder 300.02 [facility] [address] [address] Feb, [facility] [address] [address] Feb, [facility] [address] [address] Jan, [facility] [address] [address] Jan, [facility] [address] [address] Jan, [facility] [address] [address] Jan, [facility] [id number] [place] [address] Dec, [facility] [address] [address] Dec, [facility] [id number] [place] [address] Dec, [facility] [id number] [place] [address] November, Attention deficit disorder of childhood 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 314.00 ; Generalized anxiety disorder 300.02 and Major depressive disorder, recurrent episode, moderate 296.32 [facility] [id number] [place] [address] November, [facility] [id number] [place] [address] November, [facility] [id number] [place] [address] November, Anxiety state 300.00 [facility] [id number] [place] [address] Oct, [facility] [id number] [place] [address] Oct, [facility] [id number] [place] [address] Sep, [facility] [id number] [place] [address] Sep, [facility] [id number] [place] [address] Sep, [facility] [id number] [place] [address] Sep, [facility] [id number] [place] [address] Sep, [facility] [id number] [place] [address] Sep, [facility] [id number] [place] [address] Aug, [facility] [id number] [place] [address] Aug, [facility] [address] [id number] [place] [address] 10 Aug, 2014 [facility] [address] [id number] [place] [address] Aug, 2014 [facility] [address] [id number] [place] [address] Aug, 2014 [facility] [address] [id number] [place] [address] Aug, 2014 [facility] [address] [id number] [place] [address] Aug, [facility] [address] [id number] [place] [address] Aug, [facility] [address] [id number] [place] [address] Jul, [facility] [address] [id number] [place] [address] Jul, [facility] [address] [id number] [place] [address] Jul, [facility] [address] [id number] [place] [address] Jul, [facility] [address] [id number] [place] [address] Jul, [facility] [address] [id number] [place] [address] Jul, [facility] [address] [id number] [place] [address] Jun, [facility] [address] [id number] [place] [address] Jun, [facility] [address] [id number] [place] [address] Jun, [facility] [address] [id number] [place] [address] Jun, [facility] [address] [id number] [place] [address] Jun, [facility] [address] [facility] [id number] [place] [address] Jun, [facility] [address] [facility] [id number] [place] [address] May, [facility] [address] [id number] [place] [address] May, [facility] [address] [id number] [place] [address] May, [facility] [address] [facility] [id number] [place] [address] May, [facility] [address] [id number] [place] [address] May, [facility] [address] [id number] [place] [address] May, [facility] [address] [id number] [place] [address] May, [facility] [address] [id number] [place] [address] May, [facility] [address] [id number] [place] [address] May, [facility] [address] [id number] [place] [address] May, [facility] [address] [id number] [place] [address] Apr, [facility] [address] [facility] [id number] [place] [address] Apr, [facility] [address] [id number] [place] [address] Apr, [facility] [address] [id number] [place] [address] Apr, [facility] [address] [id number] [place] [address] Apr, [facility] [address] [id number] [place] [address] Apr, [facility] [address] [id number] [place] [address] Apr, [facility] [address] [facility] [id number] [place] [address] Apr, [facility] [address] [id number] [place] [address] 15 Mar, 2014 [facility] [address] [facility] [id number] [place] [address] 15 Mar, 2014 [facility] [address] [id number] [place] [address] Mar, [facility] [address] [id number] [place] [address] Mar, [facility] [address] [id number] [place] [address] Mar, [facility] [address] [id number] [place] [address] Mar, [facility] [address] [id number] [place] [address] Feb, [facility] [address] [id number] [place] [address] Feb, [facility] [address] [id number] [place] [address] Feb, [facility] [address] [id number] [place] [address] Feb, [facility] [address] [facility] [id number] [place] [address] Feb, [facility] [address] [id number] [place] [address] Feb, [facility] [address] [id number] [place] [address] Jan, [facility] [address] [id number] [place] [address] Jan, [facility] [address] [id number] [place] [address] Jan, [facility] [address] [facility] [id number] [place] [address] Jan, [facility] [address] [facility] [id number] [place] [address] Jan, [facility] [address] [id number] [place] [address] Jan, [facility] [address] [facility] [id number] [place] [address] Dec, [facility] [address] [id number] [place] [address] Dec, [facility] [address] [id number] [place] [address] Dec, [facility] [address] [id number] [place] [address] Dec, [facility] [address] [id number] [place] [address] Dec, [facility] [address] [id number] [place] [address] November, [facility] [address] [id number] [place] [address] November, [facility] [address] [id number] [place] [address] November, [facility] [address] [id number] [place] [address] November, [facility] [address] [facility] [id number] [place] [address] November, [facility] [address] [id number] [place] [address] November, [facility] [address] [id number] [place] [address] November, [facility] [address] [id number] [place] [address] November, [facility] [address] [facility] [id number] [place] [address] Oct, [facility] [address] [facility] [id number] [place] [address] Oct, [facility] [address] [id number] [place] [address] Oct, [facility] [address] [id number] [place] [address] Oct, [facility] [address] [facility] [id number] [place] [address] Oct, [facility] [address] [id number] [place] [address] Oct, [facility] [address] [id number] [place] [address] Sep, [facility] [address] [id number] [place] [address] Sep, [facility] [address] [id number] [place] [address] Sep, [facility] [address] [id number] [place] [address] Sep, [facility] [address] [id number] [place] [address] Sep, [facility] [address] [id number] [place] [address] Sep, [facility] [address] [facility] [id number] [place] [address] Aug, [facility] [address] [facility] [id number] [place] [address] Aug, [facility] [address] [id number] [place] [address] Jul, [facility] [address] [id number] [place] [address] Jul, [facility] [address] [id number] [place] [address] 17 Jul, 2013 [facility] [address] [facility] [id number] [place] [address] 17 Jul, 2013 [facility] [address] [id number] [place] [address] 15 Jul, 2013 [facility] [address] [id number] [place] [address] 15 Jul, 2013 [facility] [address] [id number] [place] [address] 13 Jul, 2013 [facility] [address] [id number] [place] [address] Jul, [facility] [address] [id number] [place] [address] Jul, [facility] [address] [id number] [place] [address] Jul, [facility] [address] [id number] [place] [address] 07 Jul, 2013 [facility] [address] [id number] [place] [address] Jul, [facility] [address] [id number] [place] [address] Jun, [facility] [address] [id number] [place] [address] Jun, [facility] [address] [id number] [place] [address] Jun, [facility] [address] [id number] [place] [address] 20 Jun, 2013 [facility] [address] [id number] [place] [address] 13 Jun, 2013 [facility] [address] [id number] [place] [address] 13 Jun, 2013 [facility] [address] [id number] [place] [address] Jun, [facility] [address] [id number] [place] [address] Jun, [facility] [id number] [place] [address] May, [facility] [address] [id number] [place] [address] May, [facility] [id number] [place] [address] May, [facility] [id number] [place] [address] May, [facility] [id number] [place] [address] Apr, [facility] [id number] [place] [address] Apr, [facility] [id number] [place] [address] Apr, [facility] [id number] [place] [address] Mar, [facility] [id number] [place] [address] Feb, [facility] [id number] [place] [address] Jan, [facility] [id number] [place] [address] Jan, [facility] [id number] [place] [address] Jan, IMMUNIZATIONS No Known Immunizations SOCIAL HISTORY [...]
--- OUTSIDE RECORDS SUMMARY | 2020-01-12 11:27 | XMS REPORT ---
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 Active 30032327 Problem Essential hypertension, benign 401.1 Active 0978480 Problem Anxiety state, unspecified 300.00 Act disha 887387855 Problem Other and unspecified hyperlipidemia 272.4 Active 79180402 Problem Major depressive disorder, recurrent episode, moderate 296 .32 Active 58649019 Problem PTSD (post-traumatic stress disorder) F43.10 Active 22916889 Problem Generalized anxiety disorder 300.02 A ctive 77926621 Problem Anxiety F41.9 Active 29274855 Problem Depressive disorder, not elsewhere classified 311 Active 26560476 Problem Attention deficit hyperactivity disorder F90.9 Active 989093943 Problem Major depression F32.9 Active 370 027447 Problem Generalized anxiety disorder F41.1 A ctive 92200475 Problem Major depressive disorder, recurrent, moderate F33 .1 Active [id number] ALLERGIES No Information ENCOUNTERS Encounter Location Date Diagnosis [place] [id number] [address] May, [place] [address] [address] May, Major depressive disorder, recurrent, mo derate F33.1 ; Anxiety F41.9 ; PTSD (post-traumatic stress disorder) F43.10 and Neurocognitive disorder R41.9 [place] [address] [address] 13 Jun, 2016 [facility] [address] [address] May, Generalized anxiety disorder F41.1 ; Luis Angel or depression F32.9 and Attention deficit hyperactivity disorder F90.9 [facility] [address] [address] Feb, [facility] [address] [place] [id number] [place] [address] Jan, [facility] [address] [address] Dec, [facility] [address] [address] Dec, [facility] [address] [address] Dec, Generalized anxiety disorder F41.1 ; Luis Angel or depression F32.9 and Attention deficit hyperactivity disorder F90.9 [facility] [address] [address] Oct, [facility] [address] [address] Oct, [facility] [address] [address] Sep, [facility] [address] [address] Sep, [facility] [address] [address] Aug, [facility] [address] [address] Aug, Generalized anxiety disorder F41.1 ; Luis Angel or depression F32.9 and Attention deficit hyperactivity disorder F90.9 [facility] [address] [address] Aug, [facility] [address] [address] Aug, [facility] [address] [address] Jun, [facility] [address] [place] [id number] [place] [address] Jun, [facility] [address] [address] Jun, Attention deficit hyperactivity disorder F90.9 ; Generalized anxiety disorder F41.1 and Major depression F32.9 [facility] [address] [address] Jun, [facility] [address] [address] Apr, [facility] [address] [address] Mar, [facility] [address] [address] Mar, [facility] [address] [address] Feb, ADD (attention deficit disorder) 314.00 ; Major depressive disorder, recurrent episode, moderate 296.32 and Generalized anxiety disorder 300.02 [facility] [address] [address] Feb, [facility] [address] [address] Feb, [facility] [address] [address] Jan, [facility] [address] [address] Jan, [facility] [address] [address] Jan, [facility] [address] [address] Jan, [facility] [address] [place] [address] [id number] [place] [address] Dec, [facility] [address] [address] Dec, [facility] [address] [place] [id number] [place] [address] Dec, [facility] [address] [place] [address] [id number] [place] [address] November, Attention deficit disorder of childhood 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 314.00 ; Generalized anxiety disorder 300.02 and Major depressive disorder, recurrent episode, moderate 296.32 [facility] [address] [place] [id number] [place] [address] November, [facility] [address] [place] [id number] [place] [address] November, [facility] [address] [place] [address] [id number] [place] [address] November, Anxiety state 300.00 [facility] [address] [place] [id number] [place] [address] Oct, [facility] [address] [place] [address] [id number] [place] [address] Oct, [facility] [address] [place] [address] [id number] [place] [address] Sep, [facility] [address] [place] [address] [id number] [place] [address] Sep, [facility] [address] [place] [address] [id number] [place] [address] Sep, [facility] [address] [place] [address] [id number] [place] [address] Sep, [facility] [address] [place] [address] [id number] [place] [address] Sep, [facility] [address] [place] [address] [id number] [place] [address] Sep, [facility] [address] [place] [address] [id number] [place] [address] Aug, [facility] [address] [place] [address] [id number] [place] [address] Aug, [facility] [address] [id number] [place] [address] 10 Aug, 2014 [facility] [address] [id number] [place] [address] Aug, 2014 [facility] [address] [id number] [place] [address] Aug, 2014 [facility] [address] [id number] [place] [address] Aug, 2014 [facility] [address] [id number] [place] [address] Aug, [facility] [address] [id number] [place] [address] Aug, [facility] [address] [id number] [place] [address] Jul, [facility] [address] [id number] [place] [address] Jul, [facility] [address] [id number] [place] [address] Jul, [facility] [address] [id number] [place] [address] Jul, [facility] [address] [id number] [place] [address] Jul, [facility] [address] [id number] [place] [address] Jul, [facility] [address] [id number] [place] [address] Jun, [facility] [address] [id number] [place] [address] Jun, [facility] [address] [id number] [place] [address] Jun, [facility] [address] [id number] [place] [address] Jun, [facility] [address] [id number] [place] [address] Jun, [facility] [address] [facility] [id number] [place] [address] Jun, [facility] [address] [facility] [id number] [place] [address] May, [facility] [address] [id number] [place] [address] May, [facility] [address] [id number] [place] [address] May, [facility] [address] [facility] [id number] [place] [address] May, [facility] [address] [id number] [place] [address] May, [facility] [address] [id number] [place] [address] May, [facility] [address] [id number] [place] [address] May, [facility] [address] [id number] [place] [address] May, [facility] [address] [id number] [place] [address] May, [facility] [address] [id number] [place] [address] May, [facility] [address] [id number] [place] [address] Apr, [facility] [address] [facility] [id number] [place] [address] Apr, [facility] [address] [id number] [place] [address] Apr, [facility] [address] [id number] [place] [address] Apr, [facility] [address] [id number] [place] [address] Apr, [facility] [address] [id number] [place] [address] Apr, [facility] [id number] [place] [address] Apr, [facility] [address] [facility] [id number] [place] [address] Apr, [facility] [address] [id number] [place] [address] 15 Mar, 2014 [facility] [address] [facility] [id number] [place] [address] 15 Mar, 2014 [facility] [address] [id number] [place] [address] Mar, [facility] [address] [id number] [place] [address] Mar, [facility] [address] [id number] [place] [address] Mar, [facility] [address] [id number] [place] [address] Mar, [facility] [address] [id number] [place] [address] Feb, [facility] [address] [id number] [place] [address] Feb, [facility] [address] [id number] [place] [address] Feb, [facility] [address] [id number] [place] [address] Feb, [facility] [address] [facility] [id number] [place] [address] Feb, [facility] [address] [id number] [place] [address] Feb, [facility] [address] [id number] [place] [address] Jan, [facility] [address] [id number] [place] [address] Jan, [facility] [address] [id number] [place] [address] Jan, [facility] [address] [facility] [id number] [place] [address] Jan, [facility] [address] [facility] [id number] [place] [address] Jan, [facility] [address] [id number] [place] [address] Jan, [facility] [address] [facility] [id number] [place] [address] Dec, [facility] [address] [id number] [place] [address] Dec, [facility] [address] [id number] [place] [address] Dec, [facility] [address] [id number] [place] [address] Dec, [facility] [address] [id number] [place] [address] Dec, [facility] [address] [id number] [place] [address] November, [facility] [address] [id number] [place] [address] November, [facility] [address] [id number] [place] [address] November, [facility] [address] [id number] [place] [address] November, [facility] [address] [facility] [id number] [place] [address] November, [facility] [address] [id number] [place] [address] November, [facility] [address] [id number] [place] [address] November, [facility] [address] [id number] [place] [address] November, [facility] [address] [facility] [id number] [place] [address] Oct, [facility] [address] [facility] [id number] [place] [address] Oct, [facility] [address] [id number] [place] [address] Oct, [facility] [address] [id number] [place] [address] Oct, [facility] [address] [facility] [id number] [place] [address] Oct, [facility] [address] [id number] [place] [address] Oct, [facility] [address] [id number] [place] [address] Sep, [facility] [address] [id number] [place] [address] Sep, [facility] [address] [id number] [place] [address] Sep, [facility] [address] [id number] [place] [address] Sep, [facility] [address] [id number] [place] [address] Sep, [facility] [address] [id number] [place] [address] Sep, [facility] [address] [facility] [id number] [place] [address] Aug, [facility] [address] [facility] [id number] [place] [address] Aug, [facility] [address] [id number] [place] [address] Jul, [facility] [address] [id number] [place] [address] Jul, [facility] [address] [id number] [place] [address] 17 Jul, 2013 [facility] [address] [facility] [id number] [place] [address] 17 Jul, 2013 [facility] [address] [id number] [place] [address] 15 Jul, 2013 [facility] [address] [id number] [place] [address] 15 Jul, 2013 [facility] [address] [id number] [place] [address] 13 Jul, 2013 [facility] [address] [id number] [place] [address] Jul, [facility] [address] [id number] [place] [address] Jul, [facility] [address] [id number] [place] [address] Jul, [facility] [address] [id number] [place] [address] 07 Jul, 2013 [facility] [address] [id number] [place] [address] Jul, [facility] [address] [id number] [place] [address] Jun, [facility] [address] [id number] [place] [address] Jun, [facility] [address] [id number] [place] [address] Jun, [facility] [address] [id number] [place] [address] 20 Jun, 2013 [facility] [address] [id number] [place] [address] 13 Jun, 2013 [facility] [address] [id number] [place] [address] 13 Jun, 2013 [facility] [address] [id number] [place] [address] Jun, [facility] [address] [id number] [place] [address] Jun, [facility] [id number] [place] [address] May, [facility] [address] [id number] [place] [address] May, [facility] [id number] [place] [address] May, [facility] [id number] [place] [address] May, [facility] [id number] [place] [address] Apr, [facility] [id number] [place] [address] Apr, [facility] [id number] [place] [address] Apr, [facility] [id number] [place] [address] Mar, [facility] [id number] [place] [address] Feb, [facility] [id number] [place] [address] Jan, [facility] [id number] [place] [address] Jan, [facility] [id number] [place] [address] Jan, IMMUNIZATIONS No Known Immunizations SOCIAL HISTORY [...]
--- OUTSIDE RECORDS SUMMARY | 2020-01-12 11:27 | XMS REPORT ---
Author Author Cj PADILLA Organization [facility] Address [address] [place] [address] Care Team Providers Care Hide Tanner Name Role Phone JUAN JOSÉ PADILLA Unavailable PROBLEMS Type Condition ICD9-CM Code HUV69-DP Code Onset Dates Condition S tatus SNOMED Code Problem Pain in joint, lower leg 719.46 Activ e 872899533 Problem Attention deficit disorder o f childhood 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 314.00 Active 59706891 Problem Essential hypertension, benign 401.1 Active 8807865 Problem Anxiety state, unspecified 300.00 Act disha 416476666 Problem Other and unspecified hyperlipidemia 272.4 Active 76214754 Problem Major depressive disorder, recurrent episode, moderate 296 .32 Active 46893529 Problem PTSD (post-traumatic stress disorder) F43.10 Active 05817968 Problem Generalized anxiety disorder 300.02 A ctive 06976495 Problem Anxiety F41.9 Active 17371197 Problem Depressive disorder, not elsewhere classified 311 Active 98950410 Problem Attention deficit hyperactivity disorder F90.9 Active 608900490 Problem Major depression F32.9 Active 370 436796 Problem Generalized anxiety disorder F41.1 A ctive 73370952 Problem Major depressive disorder, recurrent, moderate F33 .1 Active 04462313 ALLERGIES No Information ENCOUNTERS Encounter Location Date Diagnosis [place] [id number] [address] May, [place] [address] [address] May, Major depressive disorder, recurrent, mo derate F33.1 ; Anxiety F41.9 ; PTSD (post-traumatic stress disorder) F43.10 and Neurocognitive disorder R41.9 [place] [address] [address] 13 Jun, 2016 [facility] [address] [address] May, Generalized anxiety disorder F41.1 ; Luis Angel or depression F32.9 and Attention deficit hyperactivity disorder F90.9 [facility] [address] [address] Feb, [facility] [address] [id number] [place] [address] Jan, [facility] [address] [address] Dec, [facility] [address] [address] Dec, [facility] [address] [address] Dec, Generalized anxiety disorder F41.1 ; Luis Angel or depression F32.9 and Attention deficit hyperactivity disorder F90.9 [facility] [address] [address] Oct, [facility] [address] [address] Oct, [facility] [address] [address] Sep, [facility] [address] [address] Sep, [facility] [address] [address] Aug, [facility] [address] [address] Aug, Generalized anxiety disorder F41.1 ; Luis Angel or depression F32.9 and Attention deficit hyperactivity disorder F90.9 [facility] [address] [address] Aug, [facility] [address] [address] Aug, [facility] [address] [address] Jun, [facility] [address] [place] [id number] [place] [address] Jun, [facility] [address] [address] Jun, Attention deficit hyperactivity disorder F90.9 ; Generalized anxiety disorder F41.1 and Major depression F32.9 [facility] [address] [address] Jun, [facility] [address] [address] Apr, [facility] [address] [address] Mar, [facility] [address] [address] Mar, [facility] [address] [address] Feb, ADD (attention deficit disorder) 314.00 ; Major depressive disorder, recurrent episode, moderate 296.32 and Generalized anxiety disorder 300.02 [facility] [address] [address] Feb, [facility] [address] [address] Feb, [facility] [address] [address] Jan, [facility] [address] [address] Jan, [facility] [address] [address] Jan, [facility] [address] [address] Jan, [facility] [address] [place] [id number] [place] [address] Dec, [facility] [address] [address] Dec, [facility] [id number] [place] [address] Dec, [facility] [address] [place] [id number] [place] [address] November, Attention deficit disorder of childhood 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 314.00 ; Generalized anxiety disorder 300.02 and Major depressive disorder, recurrent episode, moderate 296.32 [facility] [address] [place] [address] [id number] [place] [address] November, [facility] [address] [place] [address] [id number] [place] [address] November, [facility] [address] [place] [address] [id number] [place] [address] November, Anxiety state 300.00 [facility] [address] [place] [address] [id number] [place] [address] Oct, [facility] [address] [place] [address] [id number] [place] [address] Oct, [facility] [address] [place] [address] [id number] [place] [address] Sep, [facility] [address] [place] [address] [id number] [place] [address] Sep, [facility] [address] [place] [id number] [place] [address] Sep, [facility] [id number] [place] [address] Sep, [facility] [address] [place] [address] [id number] [place] [address] Sep, [facility] [address] [place] [address] [id number] [place] [address] Sep, [facility] [address] [place] [address] [id number] [place] [address] Aug, [facility] [address] [place] [address] [id number] [place] [address] Aug, [facility] [address] [facility] [id number] [place] [address] 10 Aug, 2014 [facility] [address] [facility] [id number] [place] [address] Aug, 2014 [facility] [address] [facility] [id number] [place] [address] Aug, 2014 [facility] [address] [facility] [id number] [place] [address] Aug, 2014 [facility] [address] [facility] [id number] [place] [address] Aug, [facility] [address] [facility] [id number] [place] [address] Aug, [facility] [address] [facility] [id number] [place] [address] Jul, [facility] [address] [facility] [id number] [place] [address] Jul, [facility] [address] [facility] [id number] [place] [address] Jul, [facility] [address] [facility] [id number] [place] [address] Jul, [facility] [address] [facility] [id number] [place] [address] Jul, [facility] [address] [facility] [id number] [place] [address] Jul, [facility] [address] [facility] [id number] [place] [address] Jun, [facility] [address] [facility] [id number] [place] [address] Jun, [facility] [address] [facility] [id number] [place] [address] Jun, [facility] [address] [facility] [id number] [place] [address] Jun, [facility] [address] [facility] [id number] [place] [address] Jun, [facility] [address] [id number] [place] [address] Jun, [facility] [address] [facility] [id number] [place] [address] May, [facility] [address] [facility] [id number] [place] [address] May, [facility] [address] [facility] [id number] [place] [address] May, [facility] [address] [facility] [address] [id number] [place] [address] May, [facility] [address] [facility] [id number] [place] [address] May, [facility] [address] [facility] [id number] [place] [address] May, [facility] [address] [facility] [id number] [place] [address] May, [facility] [address] [facility] [id number] [place] [address] May, [facility] [address] [facility] [id number] [place] [address] May, [facility] [address] [facility] [id number] [place] [address] May, [facility] [address] [facility] [id number] [place] [address] Apr, [facility] [address] [facility] [id number] [place] [address] Apr, [facility] [address] [facility] [id number] [place] [address] Apr, [facility] [address] [facility] [id number] [place] [address] Apr, [facility] [address] [facility] [id number] [place] [address] Apr, [facility] [address] [facility] [id number] [place] [address] Apr, [facility] [address] [id number] [place] [address] Apr, [facility] [address] [facility] [id number] [place] [address] Apr, [facility] [address] [facility] [id number] [place] [address] 15 Mar, 2014 [facility] [address] [facility] [address] [id number] [place] [address] 15 Mar, 2014 [facility] [address] [id number] [place] [address] Mar, [facility] [address] [facility] [id number] [place] [address] Mar, [facility] [address] [facility] [id number] [place] [address] Mar, [facility] [address] [facility] [id number] [place] [address] Mar, [facility] [address] [facility] [id number] [place] [address] Feb, [facility] [address] [facility] [id number] [place] [address] Feb, [facility] [address] [facility] [id number] [place] [address] Feb, [facility] [address] [facility] [id number] [place] [address] Feb, [facility] [address] [facility] [id number] [place] [address] Feb, [facility] [address] [facility] [id number] [place] [address] Feb, [facility] [address] [facility] [id number] [place] [address] Jan, [facility] [address] [facility] [id number] [place] [address] Jan, [facility] [address] [id number] [place] [address] Jan, [facility] [address] [id number] [place] [address] Jan, [facility] [address] [id number] [place] [address] Jan, [facility] [address] [facility] [id number] [place] [address] Jan, [facility] [address] [id number] [place] [address] Dec, [facility] [address] [facility] [id number] [place] [address] Dec, [facility] [address] [facility] [id number] [place] [address] Dec, [facility] [address] [facility] [id number] [place] [address] Dec, [facility] [address] [facility] [id number] [place] [address] Dec, [facility] [address] [facility] [id number] [place] [address] November, [facility] [address] [facility] [id number] [place] [address] November, [facility] [address] [facility] [id number] [place] [address] November, [facility] [address] [facility] [id number] [place] [address] November, [facility] [address] [facility] [id number] [place] [address] November, [facility] [address] [facility] [id number] [place] [address] November, [facility] [address] [facility] [id number] [place] [address] November, [facility] [address] [facility] [id number] [place] [address] November, [facility] [address] [facility] [id number] [place] [address] Oct, [facility] [address] [id number] [place] [address] Oct, [facility] [address] [facility] [id number] [place] [address] Oct, [facility] [address] [facility] [id number] [place] [address] Oct, [facility] [address] [id number] [place] [address] Oct, [facility] [address] [facility] [id number] [place] [address] Oct, [facility] [address] [facility] [id number] [place] [address] Sep, [facility] [address] [facility] [id number] [place] [address] Sep, [facility] [address] [facility] [id number] [place] [address] Sep, [facility] [address] [facility] [id number] [place] [address] Sep, [facility] [address] [facility] [id number] [place] [address] Sep, [facility] [address] [facility] [id number] [place] [address] Sep, [facility] [address] [id number] [place] [address] Aug, [facility] [address] [facility] [id number] [place] [address] Aug, [facility] [address] [facility] [id number] [place] [address] Jul, [facility] [address] [facility] [id number] [place] [address] Jul, [facility] [address] [facility] [id number] [place] [address] 17 Jul, 2013 [facility] [address] [id number] [place] [address] 17 Jul, 2013 [facility] [address] [facility] [id number] [place] [address] 15 Jul, 2013 [facility] [address] [facility] [id number] [place] [address] 15 Jul, 2013 [facility] [address] [id number] [place] [address] 13 Jul, 2013 [facility] [address] [id number] [place] [address] Jul, [facility] [address] [id number] [place] [address] Jul, [facility] [address] [id number] [place] [address] Jul, [facility] [address] [id number] [place] [address] 07 Jul, 2013 [facility] [address] [id number] [place] [address] Jul, [facility] [address] [id number] [place] [address] Jun, [facility] [address] [id number] [place] [address] Jun, [facility] [address] [id number] [place] [address] Jun, [facility] [address] [id number] [place] [address] 20 Jun, 2013 [facility] [address] [id number] [place] [address] 13 Jun, 2013 [facility] [address] [id number] [place] [address] 13 Jun, 2013 [facility] [address] [id number] [place] [address] Jun, [facility] [address] [id number] [place] [address] Jun, [facility] [id number] [place] [address] May, [facility] [address] [id number] [place] [address] May, [facility] [id number] [place] [address] May, [facility] [id number] [place] [address] May, [facility] [id number] [place] [address] Apr, [facility] [id number] [place] [address] Apr, [facility] [id number] [place] [address] Apr, [facility] [id number] [place] [address] Mar, [facility] [id number] [place] [address] Feb, [facility] [id number] [place] [address] Jan, [facility] [id number] [place] [address] Jan, [facility] [id number] [place] [address] Jan, IMMUNIZATIONS No Known Immunizations SOCIAL HISTORY [...]
--- OUTSIDE RECORDS SUMMARY | 2020-01-12 11:28 | XMS REPORT ---
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 Active 29463952 Problem Depressive disorder, not elsewhere classified 311 Active 11167234 Problem Generalized anxiety disorder 300.02 A ctive 76747053 Problem Major depression F32.9 Active 370 754311 Problem Essential hypertension, benign 401.1 Active 6890445 Problem Generalized anxiety disorder F41.1 A ctive 35847782 Problem Pain in joint, lower leg 719.46 Activ e 138024690 Problem Anxiety state, unspecified 300.00 Act disha 205027800 Problem Other and unspecified hyperlipidemia 272.4 Active 27983509 Problem Major depressive disorder, recurrent episode, moderate 296 .32 Active 32272213 Problem Attention deficit hyperactivity disorder F90.9 Active 462039511 ALLERGIES No Information ENCOUNTERS Encounter Location Date Diagnosis [facility] [address] [facility] [id number] [address] [place] [phone] Jun, [facility] [address] [place] [place] [id number] [address] [place] [phone] May, Generalized anxiety disorder F41.1 ; Major depression F32.9 and Attention deficit hyperactivity disorder F90.9 [facility] [address] [facility] [id number] [address] [place] [phone] Feb, [facility] [address] [facility] [id number] [address] [place] [phone] Jan, [facility] [address] [facility] [id number] [address] [place] [phone] Dec, [facility] [address] [facility] [id number] [address] [place] [phone] Dec, [facility] [address] [facility] [id number] [address] [place] [phone] Dec, Generalized anxiety disorder F41.1 ; Major depression F32.9 and Attention deficit hyperactivity disorder F90.9 [facility] [address] [id number] [address] [place] [phone] Oct, [facility] [address] [facility] [id number] [address] [place] [phone] Oct, [facility] [address] [facility] [id number] [address] [place] [phone] Sep, [facility] [address] [facility] [id number] [address] [place] [phone] Sep, [facility] [address] [facility] [id number] [address] [place] [phone] Aug, [facility] [address] [facility] [id number] [address] [place] [phone] Aug, Generalized anxiety disorder F41.1 ; Major depression F32.9 and Attention deficit hyperactivity disorder F90.9 [facility] [address] [facility] [id number] [address] [place] [phone] Aug, [facility] [address] [facility] [id number] [address] [place] [phone] Aug, [facility] [address] [facility] [id number] [address] [place] [phone] Jun, [facility] [address] [facility] [id number] [address] [place] [phone] Jun, [facility] [address] [facility] [id number] [address] [place] [phone] Jun, Attention deficit hyperactiv ity disorder F90.9 ; Generalized anxiety disorder F41.1 and Major depression F32.9 [facility] [address] [facility] [id number] [address] [place] [phone] Jun, [facility] [address] [id number] [address] [place] [id number] Apr, [facility] [address] [id number] [address] [place] [phone] Mar, [facility] [address] [id number] [address] [place] [phone] Mar, [facility] [address] [id number] [address] [place] [phone] Feb, ADD (attention deficit disor nerissa) 314.00 ; Major depressive disorder, recurrent episode, moderate 296.32 and Generalized anxiety disorder 300.02 [facility] [address] [id number] [address] [place] [phone] Feb, [facility] [address] [id number] [address] [place] [id number] Feb, [facility] [address] [facility] [id number] [address] [place] [address] Jan, [facility] [address] [id number] [address] [place] [phone] Jan, [facility] [address] [facility] [id number] [address] [place] [phone] Jan, [facility] [address] [facility] [id number] [address] [place] [address] Jan, [facility] [address] [id number] [address] [place] [phone] Dec, [facility] [address] [id number] [address] [place] [phone] Dec, [facility] [address] [id number] [address] [place] [phone] Dec, [facility] [address] [facility] [id number] [address] [place] [address] November, Attention deficit disorder o f childhood 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 314.00 ; Generalized anxiety disorder 300.02 and Major depressive disorder, recurrent episode, moderate 296.32 [facility] [address] [id number] [address] [place] [phone] November, [facility] [address] [id number] [address] [place] [phone] November, [facility] [address] [id number] [address] [place] [phone] November, Anxiety state 300.00 [facility] [address] [id number] [address] [place] [phone] Oct, [facility] [address] [id number] [address] [place] [address], [place] [id number] Oct, [facility] [address] [id number] [address] [place] [phone] Sep, [facility] [address] [id number] [address] [place] [phone] Sep, [facility] [address] [id number] [address] [place] [address] Sep, [facility] [address] [id number] [address] [place] [phone] Sep, [facility] [address] [id number] [address] [place] [phone] Sep, [facility] [address] [id number] [address] [place] [phone] Sep, [facility] [address] [id number] [address] [place] [address] Aug, [facility] [address] [id number] [address] [place] [phone] Aug, [facility] [address] [id number] [address] [place] [phone] Aug, [facility] [address] [id number] [address] [place] [phone] Aug, [facility] [address] [id number] [address] [place] [address], [place] [id number] Aug, 2014 [facility] [address] [id number] [address] [place] [address], [place] [id number] Aug, 2014 [facility] [address] [id number] [address] [place] [address], [place] [id number] Aug, [facility] [address] [id number] [address] [place] [address], [place] [id number] Aug, [facility] [address] [id number] [address] [place] [address], [place] [id number] Jul, [facility] [address] [id number] [address] [place] [address], [place] [id number] Jul, [facility] [address] [id number] [address] [place] [address], [place] [id number] Jul, [facility] [address] [id number] [address] [place] [address], [place] [id number] Jul, [facility] [address] [id number] [address] [place] [address], [place] [id number] Jul, [facility] [address] [id number] [address] [place] [address], [place] [id number] Jul, [facility] [address] [id number] [address] [place] [address], [place] [id number] Jun, [facility] [address] [id number] [address] [place] [address], [place] [id number] Jun, [facility] [address] [id number] [address] [place] [address], [place] [id number] Jun, [facility] [address] [id number] [address] [place] [address], [place] [id number] Jun, [facility] [address] [id number] [address] [place] [address], [place] [id number] Jun, [facility] [address] [id number] [address] [place] [address], [place] [id number] Jun, [facility] [address] [id number] [address] [place] [address], [place] [id number] May, [facility] [address] [id number] [address] [place] [address], [place] [id number] May, [facility] [address] [id number] [address] [place] [address], [place] [id number] May, [facility] [address] [id number] [address] [place] [address], [place] [id number] May, [facility] [address] [id number] [address] [place] [address], [place] [id number] May, [facility] [address] [id number] [address] [place] [address], [place] [id number] May, [facility] [address] [id number] [address] [place] [address], [place] [id number] May, [facility] [address] [id number] [address] [place] [address], [place] [id number] May, [facility] [address] [id number] [address] [place] [address], [place] [id number] May, [facility] [address] [id number] [address] [place] [address], [place] [id number] May, [facility] [address] [id number] [address] [place] [address], [place] [id number] Apr, [facility] [address] [id number] [address] [place] [address], [place] [id number] Apr, [facility] [address] [id number] [address] [place] [address], [place] [id number] Apr, [facility] [address] [id number] [address] [place] [address], [place] [id number] Apr, [facility] [address] [id number] [address] [place] [address], [place] [id number] 09 Apr, 2014 [facility] [address] [id number] [address] [place] [address], [place] [id number] Apr, [facility] [address] [id number] [address] [place] [address], [place] [id number] Apr, [facility] [address] [id number] [address] [place] [address], [place] [id number] Apr, [facility] [address] [id number] [address] [place] [address], [place] [id number] 15 Mar, 2014 [facility] [address] [id number] [address] [place] [address], [place] [id number] 15 Mar, 2014 [facility] [address] [id number] [address] [place] [address], [place] [id number] Mar, [facility] [address] [id number] [address] [place] [address], [place] [id number] Mar, [facility] [address] [id number] [address] [place] [address], [place] [id number] Mar, [facility] [address] [id number] [address] [place] [address], [place] [id number] Mar, [facility] [address] [id number] [address] [place] [address], [place] [id number] Feb, [facility] [address] [id number] [address] [place] [address], [place] [id number] Feb, [facility] [address] [id number] [address] [place] [address], [place] [id number] Feb, [facility] [address] [id number] [address] [place] [address], [place] [id number] Feb, [facility] [address] [id number] [address] [place] [address], [place] [id number] Feb, [facility] [address] [id number] [address] [place] [address], [place] [id number] Feb, [facility] [address] [id number] [address] [place] [address], [place] [id number] Jan, [facility] [address] [id number] [facility] [place] [id number] Jan, [facility] [address] [id number] [facility] [place] [id number] Jan, [facility] [address] [id number] [facility] [place] [id number] Jan, [facility] [address] [id number] [facility] [place] [address] Jan, [facility] [address] [id number] [facility] [place] [address] Jan, [facility] [address] [id number] [address] [place] [address], [place] [id number] Dec, [facility] [address] [id number] [address] [place] [address], [place] [id number] Dec, [facility] [address] [id number] [address] [place] [address], [place] [id number] Dec, [facility] [address] [id number] [address] [place] [address], [place] [id number] Dec, [facility] [address] [id number] [address] [place] [address], [place] [id number] Dec, [facility] [address] [id number] [address] [place] [address], [place] [id number] November, [facility] [address] [id number] [address] [place] [address], [place] [id number] November, [facility] [address] [id number] [address] [place] [address], [place] [id number] November, [facility] [address] [id number] [address] [place] [address], [place] [id number] November, [facility] [address] [id number] [address] [place] [address], [place] [id number] November, [facility] [address] [id number] [address] [place] [address], [place] [id number] November, [facility] [address] [id number] [address] [place] [address], [place] [id number] November, [facility] [address] [id number] [address] [place] [address], [place] [id number] November, [facility] [address] [id number] [address] [place] [address], [place] [id number] Oct, [facility] [address] [id number] [address] [place] [address], [place] [id number] Oct, [facility] [address] [id number] [address] [place] [address], [place] [id number] Oct, [facility] [address] [id number] [address] [place] [address], [place] [id number] Oct, [facility] [address] [id number] [address] [place] [address], [place] [id number] Oct, [facility] [address] [id number] [address] [place] [address], [place] [id number] Oct, [facility] [address] [id number] [address] [place] [address], [place] [id number] Sep, [facility] [address] [id number] [address] [place] [address], [place] [id number] Sep, [facility] [address] [id number] [address] [place] [address], [place] [id number] Sep, [facility] [address] [id number] [address] [place] [address], [place] [id number] Sep, [facility] [address] [id number] [address] [place] [address], [place] [id number] Sep, [facility] [address] [id number] [address] [place] [address], [place] [id number] Sep, [facility] [address] [id number] [address] [place] [address], [place] [id number] Aug, [facility] [address] [id number] [address] [place] [address], [place] [id number] Aug, [facility] [address] [id number] [address] [place] [address], [place] [id number] Jul, [facility] [address] [id number] [address] [place] [address], [place] [id number] Jul, [facility] [address] [id number] [address] [place] [address], [place] [id number] Jul, [facility] [address] [id number] [address] [place] [address], [place] [id number] Jul, [facility] [address] [id number] [address] [place] [address], [place] [id number] Jul, [facility] [address] [id number] [address] [place] [address], [place] [id number] Jul, [facility] [address] [id number] [address] [place] [address], [place] [id number] Jul, [facility] [address] [id number] [address] [place] [address], [place] [id number] Jul, [facility] [address] [id number] [address] [place] [address], [place] [id number] Jul, [facility] [address] [id number] [address] [place] [address], [place] [id number] Jul, [facility] [address] [id number] [address] [place] [address], [place] [id number] Jul, [facility] [address] [id number] [address] [place] [address], [place] [id number] Jul, [facility] [address] [id number] [address] [place] [address], [place] [id number] Jun, [facility] [address] [id number] [address] [place] [address], [place] [id number] Jun, [facility] [address] [id number] [address] [place] [address], [place] [id number] Jun, [facility] [address] [id number] [address] [place] [address], [place] [id number] Jun, [facility] [address] [id number] [address] [place] [address], [place] [id number] Jun, [facility] [address] [id number] [address] [place] [address], [place] [id number] Jun, [facility] [address] [id number] [address] [place] [address], [place] [id number] Jun, [facility] [address] [id number] [address] [place] [address], [place] [id number] Jun, [facility] [address] [id number] [address] [place] [address], [place] [id number] May, [facility] [address] [id number] [address] [place] [address], [place] [id number] May, [facility] [address] [id number] [address] [place] [phone] May, [facility] [address] [id number] [address] [place] [address], [place] [id number] May, [facility] [address] [id number] [address] [place] [phone] Apr, [facility] [address] [id number] [address] [place] [phone] Apr, [facility] [address] [id number] [address] [place] [id number] 07 Apr, 2013 [facility] [address] [id number] [address] [place] [id number] 10 Mar, 2013 [facility] [address] [id number] [address] [place] [phone] 09 Feb, 2013 [facility] [address] [id number] [address] [place] [phone] 15 Jan, 2013 [facility] [address] [id number] [address] [place] [phone] Jan, [facility] [address] [facility] [id number] [address] [place] [id number] Jan, IMMUNIZATIONS No Known Immunizations SOCIAL HISTORY Never Assessed REASON FOR VISIT PLAN OF CARE VITAL SIGNS MEDICATIONS Unknown Medications RESULTS No Results PROCEDURES No Known procedures INSTRUCTIONS MEDICATIONS ADMINISTERED No Known Medications MEDICAL (GENERAL) HISTORY Type Description Date Hospitalization History UTI 12/04/2015
--- OUTSIDE RECORDS SUMMARY | 2020-01-12 11:28 | XMS REPORT ---
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 Active 47235227 Problem Depressive disorder, not elsewhere classified 311 Active 84324074 Problem Generalized anxiety disorder 300.02 A ctive 48421391 Problem Major depression F32.9 Active 370 996730 Problem Essential hypertension, benign 401.1 Active 2541141 Problem Generalized anxiety disorder F41.1 A ctive 50778901 Problem Pain in joint, lower leg 719.46 Activ e 986008333 Problem Anxiety state, unspecified 300.00 Act disha 099104333 Problem Other and unspecified hyperlipidemia 272.4 Active 00267902 Problem Major depressive disorder, recurrent episode, moderate 296 .32 Active 44988966 Problem Attention deficit hyperactivity disorder F90.9 Active [id number] ALLERGIES No Information ENCOUNTERS Encounter Location Date Diagnosis [facility] [address] [facility] [id number] [address] [place] [id number] Jun, [facility] [address] [place] [id number] [address] [place] [address] May, Generalized anxiety disorder F41.1 ; Major depression F32.9 and Attention deficit hyperactivity disorder F90.9 [facility] [address] [facility] [id number] [address] [place] [address] Feb, [facility] [address] [facility] [id number] [address] [place] [address] Jan, [facility] [address] [facility] [id number] [address] [place] [address] Dec, [facility] [address] [facility] [id number] [address] [place] [address] Dec, [facility] [address] [facility] [id number] [address] [place] [address] Dec, Generalized anxiety disorder F41.1 ; Major depression F32.9 and Attention deficit hyperactivity disorder F90.9 [facility] [address] [id number] [address] [place] [id number] Oct, [facility] [address] [facility] [id number] [address] [place] [address] Oct, [facility] [address] [facility] [id number] [address] [place] [address] Sep, [facility] [address] [facility] [id number] [address] [place] [address] Sep, [facility] [address] [facility] [id number] [address] [place] [address] Aug, [facility] [address] [facility] [id number] [address] [place] [address] Aug, Generalized anxiety disorder F41.1 ; Major depression F32.9 and Attention deficit hyperactivity disorder F90.9 [facility] [address] [facility] [id number] [address] [place] [phone] Aug, [facility] [address] [facility] [id number] [address] [place] [id number] Aug, [facility] [address] [facility] [id number] [address] [place] [phone] Jun, [facility] [address] [facility] [id number] [address] [place] [id number] Jun, [facility] [address] [facility] [id number] [address] [place] [address] Jun, Attention deficit hyperactiv ity disorder F90.9 ; Generalized anxiety disorder F41.1 and Major depression F32.9 [facility] [address] [facility] [id number] [address] [place] [address] Jun, [facility] [address] [id number] [address] [place] [phone] Apr, [facility] [address] [id number] [address] [place] [id number] Mar, [facility] [address] [id number] [address] [place] [address] Mar, [facility] [address] [id number] [address] [place] [id number] Feb, ADD (attention deficit disor nerissa) 314.00 ; Major depressive disorder, recurrent episode, moderate 296.32 and Generalized anxiety disorder 300.02 [facility] [address] [id number] [address] [place] [id number] Feb, [facility] [address] [id number] [address] [place] [id number] Feb, [facility] [address] [facility] [id number] [address] [place] [address] Jan, [facility] [address] [id number] [address] [place] [address] Jan, [facility] [address] [facility] [id number] [address] [place] [id number] Jan, [facility] [address] [facility] [id number] [address] [place] [id number] Jan, [facility] [address] [id number] [address] [place] [address] Dec, [facility] [address] [id number] [address] [place] [id number] Dec, [facility] [address] [id number] [address] [place] [address] Dec, [facility] [address] [facility] [id number] [address] [place] [address] November, Attention deficit disorder o f childhood 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 314.00 ; Generalized anxiety disorder 300.02 and Major depressive disorder, recurrent episode, moderate 296.32 [facility] [address] [id number] [address] [place] [id number] November, [facility] [address] [id number] [address] [place] [address] November, [facility] [address] [id number] [address] [place] [id number] November, Anxiety state 300.00 [facility] [address] [id number] [address] [place] [id number] Oct, [facility] [address] [id number] [address] [place] [address], [place] [address] Oct, [facility] [address] [id number] [address] [place] [phone] Sep, [facility] [address] [id number] [address] [place] [id number] Sep, [facility] [address] [id number] [address] [place] [id number] Sep, [facility] [address] [id number] [address] [place] [id number] Sep, [facility] [address] [id number] [address] [place] [id number] Sep, [facility] [address] [id number] [address] [place] [id number] Sep, [facility] [address] [id number] [address] [place] [id number] Aug, [facility] [address] [id number] [address] [place] [phone] Aug, [facility] [address] [id number] [address] [place] [id number] Aug, [facility] [address] [id number] [address] [place] [id number] Aug, [facility] [address] [id number] [address] [place] [address], [place] [address] Aug, 2014 [facility] [address] [id number] [address] [place] [address], [place] [address] Aug, 2014 [facility] [address] [id number] [address] [place] [address], [place] [address] Aug, [facility] [address] [id number] [address] [place] [address], [place] [address] Aug, [facility] [address] [id number] [address] [place] [address], [place] [address] Jul, [facility] [address] [id number] [address] [place] [address], [place] [address] Jul, [facility] [address] [id number] [address] [place] [address], [place] [address] Jul, [facility] [address] [id number] [address] [place] [address], [place] [address] Jul, [facility] [address] [id number] [address] [place] [address], [place] [address] Jul, [facility] [address] [id number] [address] [place] [address], [place] [address] Jul, [facility] [address] [id number] [address] [place] [address], [place] [address] Jun, [facility] [address] [id number] [address] [place] [address], [place] [address] Jun, [facility] [address] [id number] [address] [place] [address], [place] [address] Jun, [facility] [address] [id number] [address] [place] [address], [place] [address] Jun, [facility] [address] [id number] [address] [place] [address], [place] [address] Jun, [facility] [address] [id number] [address] [place] [address], [place] [address] Jun, [facility] [address] [id number] [address] [place] [address], [place] [address] May, [facility] [address] [id number] [address] [place] [address], [place] [address] May, [facility] [address] [id number] [address] [place] [address], [place] [address] May, [facility] [address] [id number] [address] [place] [address], [place] [address] May, [facility] [address] [id number] [address] [place] [address], [place] [address] May, [facility] [address] [id number] [address] [place] [address], [place] [address] May, [facility] [address] [id number] [address] [place] [address], [place] [address] May, [facility] [address] [id number] [address] [place] [address], [place] [address] May, [facility] [address] [id number] [address] [place] [address], [place] [address] May, [facility] [address] [id number] [address] [place] [address], [place] [address] May, [facility] [address] [id number] [address] [place] [address], [place] [address] Apr, [facility] [address] [id number] [address] [place] [address], [place] [address] Apr, [facility] [address] [id number] [address] [place] [address], [place] [address] Apr, [facility] [address] [id number] [address] [place] [address], [place] [address] Apr, [facility] [address] [id number] [address] [place] [address], [place] [address] 09 Apr, 2014 [facility] [address] [id number] [address] [place] [address], [place] [address] Apr, [facility] [address] [id number] [address] [place] [address], [place] [address] Apr, [facility] [address] [id number] [address] [place] [address], [place] [address] Apr, [facility] [address] [id number] [address] [place] [address], [place] [address] 15 Mar, 2014 [facility] [address] [id number] [address] [place] [address], [place] [address] 15 Mar, 2014 [facility] [address] [id number] [address] [place] [address], [place] [address] Mar, [facility] [address] [id number] [address] [place] [address], [place] [address] Mar, [facility] [address] [id number] [address] [place] [address], [place] [address] Mar, [facility] [address] [id number] [address] [place] [address], [place] [address] Mar, [facility] [address] [id number] [address] [place] [address], [place] [address] Feb, [facility] [address] [id number] [address] [place] [address], [place] [address] Feb, [facility] [address] [id number] [address] [place] [address], [place] [address] Feb, [facility] [address] [id number] [address] [place] [address], [place] [address] Feb, [facility] [address] [id number] [address] [place] [address], [place] [address] Feb, [facility] [address] [id number] [address] [place] [address], [place] [address] Feb, [facility] [address] [id number] [address] [place] [address], [place] [address] Jan, [facility] [address] [id number] [facility] [place] [address] Jan, [facility] [address] [id number] [facility] [place] [address] Jan, [facility] [address] [id number] [facility] [place] [address] Jan, [facility] [address] [id number] [facility] [place] [address] Jan, [facility] [address] [id number] [facility] [place] [address] Jan, [facility] [address] [id number] [address] [place] [address], [place] [address] Dec, [facility] [address] [id number] [address] [place] [address], [place] [address] Dec, [facility] [address] [id number] [address] [place] [address], [place] [address] Dec, [facility] [address] [id number] [address] [place] [address], [place] [address] Dec, [facility] [address] [id number] [address] [place] [address], [place] [address] Dec, [facility] [address] [id number] [address] [place] [address], [place] [address] November, [facility] [address] [id number] [address] [place] [address], [place] [address] November, [facility] [address] [id number] [address] [place] [address], [place] [address] November, [facility] [address] [id number] [address] [place] [address], [place] [address] November, [facility] [address] [id number] [address] [place] [address], [place] [address] November, [facility] [address] [id number] [address] [place] [address], [place] [address] November, [facility] [address] [id number] [address] [place] [address], [place] [address] November, [facility] [address] [id number] [address] [place] [address], [place] [address] November, [facility] [address] [id number] [address] [place] [address], [place] [address] Oct, [facility] [address] [id number] [address] [place] [address], [place] [address] Oct, [facility] [address] [id number] [address] [place] [address], [place] [address] Oct, [facility] [address] [id number] [address] [place] [address], [place] [address] Oct, [facility] [address] [id number] [address] [place] [address], [place] [address] Oct, [facility] [address] [id number] [address] [place] [address], [place] [address] Oct, [facility] [address] [id number] [address] [place] [address], [place] [address] Sep, [facility] [address] [id number] [address] [place] [address], [place] [address] Sep, [facility] [address] [id number] [address] [place] [address], [place] [address] Sep, [facility] [address] [id number] [address] [place] [address], [place] [address] Sep, [facility] [address] [id number] [address] [place] [address], [place] [address] Sep, [facility] [address] [id number] [address] [place] [address], [place] [address] Sep, [facility] [address] [id number] [address] [place] [address], [place] [address] Aug, [facility] [address] [id number] [address] [place] [address], [place] [address] Aug, [facility] [address] [id number] [address] [place] [address], [place] [address] Jul, [facility] [address] [id number] [address] [place] [address], [place] [address] Jul, [facility] [address] [id number] [address] [place] [address], [place] [address] Jul, [facility] [address] [id number] [address] [place] [address], [place] [address] Jul, [facility] [address] [id number] [address] [place] [address], [place] [address] Jul, [facility] [address] [id number] [address] [place] [address], [place] [address] Jul, [facility] [address] [id number] [address] [place] [address], [place] [address] Jul, [facility] [address] [id number] [address] [place] [address], [place] [address] Jul, [facility] [address] [id number] [address] [place] [address], [place] [address] Jul, [facility] [address] [id number] [address] [place] [address], [place] [address] Jul, [facility] [address] [id number] [address] [place] [address], [place] [address] Jul, [facility] [address] [id number] [address] [place] [address], [place] [address] Jul, [facility] [address] [id number] [address] [place] [address], [place] [address] Jun, [facility] [address] [id number] [address] [place] [address], [place] [address] Jun, [facility] [address] [id number] [address] [place] [address], [place] [address] Jun, [facility] [address] [id number] [address] [place] [address], [place] [address] Jun, [facility] [address] [id number] [address] [place] [address], [place] [address] Jun, [facility] [address] [id number] [address] [place] [address], [place] [address] Jun, [facility] [address] [id number] [address] [place] [address], [place] [address] Jun, [facility] [address] [id number] [address] [place] [address], [place] [address] Jun, [facility] [address] [id number] [address] [place] [address], [place] [address] May, [facility] [address] [id number] [address] [place] [address], [place] [address] May, [facility] [address] [id number] [address] [place] [phone] May, [facility] [address] [id number] [address] [place] [address], [place] [address] May, [facility] [address] [id number] [address] [place] [id number] Apr, [facility] [address] [id number] [address] [place] [phone] Apr, [facility] [address] [id number] [address] [place] [phone] 07 Apr, 2013 [facility] [address] [id number] [address] [place] [id number] 10 Mar, 2013 [facility] [address] [id number] [address] [place] [id number] 09 Feb, 2013 [facility] [address] [id number] [address] [place] [phone] 15 Jan, 2013 [facility] [address] [id number] [address] [place] [phone] Jan, [facility] [address] [facility] [id number] [address] [place] [phone] Jan, IMMUNIZATIONS No Known Immunizations SOCIAL HISTORY Never Assessed REASON FOR VISIT PLAN OF CARE VITAL SIGNS MEDICATIONS Unknown Medications RESULTS No Results PROCEDURES No Known procedures INSTRUCTIONS MEDICATIONS ADMINISTERED No Known Medications MEDICAL (GENERAL) HISTORY Type Description Date Hospitalization History UTI 12/04/2015
--- OUTSIDE RECORDS SUMMARY | 2020-01-12 11:28 | XMS REPORT ---
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 Active 01828419 Problem Depressive disorder, not elsewhere classified 311 Active 16230843 Problem Generalized anxiety disorder 300.02 A ctive 41020450 Problem Major depression F32.9 Active 370 325974 Problem Essential hypertension, benign 401.1 Active 5913380 Problem Generalized anxiety disorder F41.1 A ctive 37642037 Problem Pain in joint, lower leg 719.46 Activ e 333021879 Problem Anxiety state, unspecified 300.00 Act disha 468568351 Problem Other and unspecified hyperlipidemia 272.4 Active 95336673 Problem Major depressive disorder, recurrent episode, moderate 296 .32 Active 73148498 Problem Attention deficit hyperactivity disorder F90.9 Active [id number] ALLERGIES No Information ENCOUNTERS Encounter Location Date Diagnosis [facility] [address] [facility] [id number] [address] [place] [phone] Jun, [facility] [address] [place] [id number] [address] [place] [phone] May, Generalized anxiety disorder F41.1 ; Major depression F32.9 and Attention deficit hyperactivity disorder F90.9 [facility] [address] [facility] [id number] [address] [place] [phone] Feb, [facility] [address] [facility] [id number] [address] [place] [phone] Jan, [facility] [address] [facility] [id number] [address] [place] [phone] Dec, [facility] [address] [facility] [id number] [address] [place] [id number] Dec, [facility] [address] [facility] [id number] [address] [place] [phone] Dec, Generalized anxiety disorder F41.1 ; Major depression F32.9 and Attention deficit hyperactivity disorder F90.9 [facility] [address] [id number] [address] [place] [phone] Oct, [facility] [address] [facility] [id number] [address] [place] [phone] Oct, [facility] [address] [facility] [id number] [address] [place] [phone] Sep, [facility] [address] [facility] [id number] [address] [place] [phone] Sep, [facility] [address] [facility] [id number] [address] [place] [phone] Aug, [facility] [address] [facility] [id number] [address] [place] [phone] Aug, Generalized anxiety disorder F41.1 ; Major depression F32.9 and Attention deficit hyperactivity disorder F90.9 [facility] [address] [facility] [id number] [address] [place] [phone] Aug, [facility] [address] [facility] [id number] [address] [place] [phone] Aug, [facility] [address] [facility] [id number] [address] [place] [phone] Jun, [facility] [address] [facility] [id number] [address] [place] [phone] Jun, [facility] [address] [facility] [id number] [address] [place] [phone] Jun, Attention deficit hyperactiv ity disorder F90.9 ; Generalized anxiety disorder F41.1 and Major depression F32.9 [facility] [address] [facility] [id number] [address] [place] [phone] Jun, [facility] [address] [id number] [address] [place] [id number] Apr, [facility] [address] [id number] [address] [place] [phone] Mar, [facility] [address] [id number] [address] [place] [phone] Mar, [facility] [address] [id number] [address] [place] [phone] Feb, ADD (attention deficit disor nerissa) 314.00 ; Major depressive disorder, recurrent episode, moderate 296.32 and Generalized anxiety disorder 300.02 [facility] [address] [id number] [address] [place] [id number] Feb, [facility] [address] [id number] [address] [place] [id number] Feb, [facility] [address] [facility] [id number] [address] [place] [phone] Jan, [facility] [address] [id number] [address] [place] [phone] Jan, [facility] [address] [facility] [id number] [address] [place] [phone] Jan, [facility] [address] [facility] [id number] [address] [place] [phone] Jan, [facility] [address] [id number] [address] [place] [phone] Dec, [facility] [address] [id number] [address] [place] [phone] Dec, [facility] [address] [id number] [address] [place] [id number] Dec, [facility] [address] [facility] [id number] [address] [place] [phone] November, Attention deficit disorder o f childhood 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 314.00 ; Generalized anxiety disorder 300.02 and Major depressive disorder, recurrent episode, moderate 296.32 [facility] [address] [id number] [address] [place] [phone] November, [facility] [address] [id number] [address] [place] [phone] November, [facility] [address] [id number] [address] [place] [id number] November, Anxiety state 300.00 [facility] [address] [id number] [address] [place] [phone] Oct, [facility] [address] [id number] [address] [place] [address], [place] [address] Oct, [facility] [address] [id number] [address] [place] [phone] Sep, [facility] [address] [id number] [address] [place] [phone] Sep, [facility] [address] [id number] [address] [place] [phone] Sep, [facility] [address] [id number] [address] [place] [phone] Sep, [facility] [address] [id number] [address] [place] [id number] Sep, [facility] [address] [id number] [address] [place] [phone] Sep, [facility] [address] [id number] [address] [place] [phone] Aug, [facility] [address] [id number] [address] [place] [phone] Aug, [facility] [address] [id number] [address] [place] [phone] Aug, [facility] [address] [id number] [address] [place] [phone] Aug, [facility] [address] [id number] [address] [place] [address], [place] [address] Aug, 2014 [facility] [address] [id number] [address] [place] [address], [place] [address] Aug, 2014 [facility] [address] [id number] [address] [place] [address], [place] [address] Aug, [facility] [address] [id number] [address] [place] [address], [place] [address] Aug, [facility] [address] [id number] [address] [place] [address], [place] [address] Jul, [facility] [address] [id number] [address] [place] [address], [place] [address] Jul, [facility] [address] [id number] [address] [place] [address], [place] [address] Jul, [facility] [address] [id number] [address] [place] [address], [place] [address] Jul, [facility] [address] [id number] [address] [place] [address], [place] [address] Jul, [facility] [address] [id number] [address] [place] [address], [place] [address] Jul, [facility] [address] [id number] [address] [place] [address], [place] [address] Jun, [facility] [address] [id number] [address] [place] [address], [place] [address] Jun, [facility] [address] [id number] [address] [place] [address], [place] [address] Jun, [facility] [address] [id number] [address] [place] [address], [place] [address] Jun, [facility] [address] [id number] [address] [place] [address], [place] [address] Jun, [facility] [address] [id number] [address] [place] [address], [place] [address] Jun, [facility] [address] [id number] [address] [place] [address], [place] [address] May, [facility] [address] [id number] [address] [place] [address], [place] [address] May, [facility] [address] [id number] [address] [place] [address], [place] [address] May, [facility] [address] [id number] [address] [place] [address], [place] [address] May, [facility] [address] [id number] [address] [place] [address], [place] [address] May, [facility] [address] [id number] [address] [place] [address], [place] [address] May, [facility] [address] [id number] [address] [place] [address], [place] [address] May, [facility] [address] [id number] [address] [place] [address], [place] [address] May, [facility] [address] [id number] [address] [place] [address], [place] [address] May, [facility] [address] [id number] [address] [place] [address], [place] [address] May, [facility] [address] [id number] [address] [place] [address], [place] [address] Apr, [facility] [address] [id number] [address] [place] [address], [place] [address] Apr, [facility] [address] [id number] [address] [place] [address], [place] [address] Apr, [facility] [address] [id number] [address] [place] [address], [place] [address] Apr, [facility] [address] [id number] [address] [place] [address], [place] [address] 09 Apr, 2014 [facility] [address] [id number] [address] [place] [address], [place] [address] Apr, [facility] [address] [id number] [address] [place] [address], [place] [address] Apr, [facility] [address] [id number] [address] [place] [address], [place] [address] Apr, [facility] [address] [id number] [address] [place] [address], [place] [address] 15 Mar, 2014 [facility] [address] [id number] [address] [place] [address], [place] [address] 15 Mar, 2014 [facility] [address] [id number] [address] [place] [address], [place] [address] Mar, [facility] [address] [id number] [address] [place] [address], [place] [address] Mar, [facility] [address] [id number] [address] [place] [address], [place] [address] Mar, [facility] [address] [id number] [address] [place] [address], [place] [address] Mar, [facility] [address] [id number] [address] [place] [address], [place] [address] Feb, [facility] [address] [id number] [address] [place] [address], [place] [address] Feb, [facility] [address] [id number] [address] [place] [address], [place] [address] Feb, [facility] [address] [id number] [address] [place] [address], [place] [address] Feb, [facility] [address] [id number] [address] [place] [address], [place] [address] Feb, [facility] [address] [id number] [address] [place] [address], [place] [address] Feb, [facility] [address] [id number] [address] [place] [address], [place] [address] Jan, [facility] [address] [id number] [facility] [place] [address] Jan, [facility] [address] [id number] [facility] [place] [address] Jan, [facility] [address] [id number] [facility] [place] [address] Jan, [facility] [address] [id number] [facility] [place] [address] Jan, [facility] [address] [id number] [facility] [place] [address] Jan, [facility] [address] [id number] [address] [place] [address], [place] [address] Dec, [facility] [address] [id number] [address] [place] [address], [place] [address] Dec, [facility] [address] [id number] [address] [place] [address], [place] [address] Dec, [facility] [address] [id number] [address] [place] [address], [place] [address] Dec, [facility] [address] [id number] [address] [place] [address], [place] [address] Dec, [facility] [address] [id number] [address] [place] [address], [place] [address] November, [facility] [address] [id number] [address] [place] [address], [place] [address] November, [facility] [address] [id number] [address] [place] [address], [place] [address] November, [facility] [address] [id number] [address] [place] [address], [place] [address] November, [facility] [address] [id number] [address] [place] [address], [place] [address] November, [facility] [address] [id number] [address] [place] [address], [place] [address] November, [facility] [address] [id number] [address] [place] [address], [place] [address] November, [facility] [address] [id number] [address] [place] [address], [place] [address] November, [facility] [address] [id number] [address] [place] [address], [place] [address] Oct, [facility] [address] [id number] [address] [place] [address], [place] [address] Oct, [facility] [address] [id number] [address] [place] [address], [place] [address] Oct, [facility] [address] [id number] [address] [place] [address], [place] [address] Oct, [facility] [address] [id number] [address] [place] [address], [place] [address] Oct, [facility] [address] [id number] [address] [place] [address], [place] [address] Oct, [facility] [address] [id number] [address] [place] [address], [place] [address] Sep, [facility] [address] [id number] [address] [place] [address], [place] [address] Sep, [facility] [address] [id number] [address] [place] [address], [place] [address] Sep, [facility] [address] [id number] [address] [place] [address], [place] [address] Sep, [facility] [address] [id number] [address] [place] [address], [place] [address] Sep, [facility] [address] [id number] [address] [place] [address], [place] [address] Sep, [facility] [address] [id number] [address] [place] [address], [place] [address] Aug, [facility] [address] [id number] [address] [place] [address], [place] [address] Aug, [facility] [address] [id number] [address] [place] [address], [place] [address] Jul, [facility] [address] [id number] [address] [place] [address], [place] [address] Jul, [facility] [address] [id number] [address] [place] [address], [place] [address] Jul, [facility] [address] [id number] [address] [place] [address], [place] [address] Jul, [facility] [address] [id number] [address] [place] [address], [place] [address] Jul, [facility] [address] [id number] [address] [place] [address], [place] [address] Jul, [facility] [address] [id number] [address] [place] [address], [place] [address] Jul, [facility] [address] [id number] [address] [place] [address], [place] [address] Jul, [facility] [address] [id number] [address] [place] [address], [place] [address] Jul, [facility] [address] [id number] [address] [place] [address], [place] [address] Jul, [facility] [address] [id number] [address] [place] [address], [place] [address] Jul, [facility] [address] [id number] [address] [place] [address], [place] [address] Jul, [facility] [address] [id number] [address] [place] [address], [place] [address] Jun, [facility] [address] [id number] [address] [place] [address], [place] [address] Jun, [facility] [address] [id number] [address] [place] [address], [place] [address] Jun, [facility] [address] [id number] [address] [place] [address], [place] [address] Jun, [facility] [address] [id number] [address] [place] [address], [place] [address] Jun, [facility] [address] [id number] [address] [place] [address], [place] [address] Jun, [facility] [address] [id number] [address] [place] [address], [place] [address] Jun, [facility] [address] [id number] [address] [place] [address], [place] [address] Jun, [facility] [address] [id number] [address] [place] [address], [place] [address] May, [facility] [address] [id number] [address] [place] [address], [place] [address] May, [facility] [address] [id number] [address] [place] [id number] May, [facility] [address] [id number] [address] [place] [address], [place] [address] May, [facility] [address] [id number] [address] [place] [id number] Apr, [facility] [address] [id number] [address] [place] [phone] Apr, [facility] [address] [id number] [address] [place] [id number] 07 Apr, 2013 [facility] [address] [id number] [address] [place] [id number] 10 Mar, 2013 [facility] [address] [id number] [address] [place] [id number] 09 Feb, 2013 [facility] [address] [id number] [address] [place] [id number] 15 Jan, 2013 [facility] [address] [id number] [address] [place] [id number] Jan, [facility] [address] [facility] [id number] [address] [place] [phone] Jan, IMMUNIZATIONS No Known Immunizations SOCIAL HISTORY Never Assessed REASON FOR VISIT PLAN OF CARE VITAL SIGNS MEDICATIONS Unknown Medications RESULTS No Results PROCEDURES No Known procedures INSTRUCTIONS MEDICATIONS ADMINISTERED No Known Medications MEDICAL (GENERAL) HISTORY Type Description Date Hospitalization History UTI 12/04/2015
--- OUTSIDE RECORDS SUMMARY | 2020-01-12 11:28 | XMS REPORT ---
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 Active 60939395 Problem Depressive disorder, not elsewhere classified 311 Active 28936631 Problem Generalized anxiety disorder 300.02 A ctive 95010348 Problem Major depression F32.9 Active 370 667890 Problem Essential hypertension, benign 401.1 Active 1485078 Problem Generalized anxiety disorder F41.1 A ctive 79991048 Problem Pain in joint, lower leg 719.46 Activ e 711446360 Problem Anxiety state, unspecified 300.00 Act disha 858495074 Problem Other and unspecified hyperlipidemia 272.4 Active 90247856 Problem Major depressive disorder, recurrent episode, moderate 296 .32 Active 64153661 Problem Attention deficit hyperactivity disorder F90.9 Active [id number] ALLERGIES No Information ENCOUNTERS Encounter Location Date Diagnosis [facility] [address] [facility] [id number] [address] [place] [address] Jun, [facility] [address] [id number] [address] [place] [address] May, Generalized anxiety disorder F41.1 ; Major depression F32.9 and Attention deficit hyperactivity disorder F90.9 [facility] [address] [facility] [id number] [address] [place] [address] Feb, [facility] [address] [facility] [id number] [address] [place] [address] Jan, [facility] [address] [facility] [id number] [address] [place] [address] Dec, [facility] [address] [facility] [id number] [address] [place] [address] Dec, [facility] [address] [facility] [id number] [address] [place] [address] Dec, Generalized anxiety disorder F41.1 ; Major depression F32.9 and Attention deficit hyperactivity disorder F90.9 [facility] [address] [id number] [address] [place] [address] Oct, [facility] [address] [facility] [id number] [address] [place] [address] Oct, [facility] [address] [facility] [id number] [address] [place] [address] Sep, [facility] [address] [facility] [id number] [address] [place] [address] Sep, [facility] [address] [facility] [id number] [address] [place] [address] Aug, [facility] [address] [facility] [id number] [address] [place] [address] Aug, Generalized anxiety disorder F41.1 ; Major depression F32.9 and Attention deficit hyperactivity disorder F90.9 [facility] [address] [facility] [id number] [address] [place] [address] Aug, [facility] [address] [facility] [id number] [address] [place] [address] Aug, [facility] [address] [facility] [id number] [address] [place] [address] Jun, [facility] [address] [facility] [id number] [address] [place] [id number] Jun, [facility] [address] [facility] [id number] [address] [place] [address] Jun, Attention deficit hyperactiv ity disorder F90.9 ; Generalized anxiety disorder F41.1 and Major depression F32.9 [facility] [address] [facility] [id number] [address] [place] [id number] Jun, [facility] [address] [id number] [address] [place] [address] Apr, [facility] [address] [id number] [address] [place] [address] Mar, [facility] [address] [id number] [address] [place] [address] Mar, [facility] [address] [id number] [address] [place] [id number] Feb, ADD (attention deficit disor nerissa) 314.00 ; Major depressive disorder, recurrent episode, moderate 296.32 and Generalized anxiety disorder 300.02 [facility] [address] [id number] [address] [place] [address] Feb, [facility] [address] [id number] [address] [place] [id number] Feb, [facility] [address] [facility] [id number] [address] [place] [id number] Jan, [facility] [address] [id number] [address] [place] [address] Jan, [facility] [address] [facility] [id number] [address] [place] [address] Jan, [facility] [address] [facility] [id number] [address] [place] [address] Jan, [facility] [address] [id number] [address] [place] [address] Dec, [facility] [address] [id number] [address] [place] [address] Dec, [facility] [address] [id number] [address] [place] [address] Dec, [facility] [address] [facility] [id number] [address] [place] [address] November, Attention deficit disorder o f childhood 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 314.00 ; Generalized anxiety disorder 300.02 and Major depressive disorder, recurrent episode, moderate 296.32 [facility] [address] [id number] [address] [place] [address] November, [facility] [address] [id number] [address] [place] [address] November, [facility] [address] [id number] [address] [place] [address] November, Anxiety state 300.00 [facility] [address] [id number] [address] [place] [address] Oct, [facility] [address] [id number] [address] [place] [address], [place] [address] Oct, [facility] [address] [id number] [address] [place] [id number] Sep, [facility] [address] [id number] [address] [place] [address] Sep, [facility] [address] [id number] [address] [place] [address] Sep, [facility] [address] [id number] [address] [place] [address] Sep, [facility] [address] [id number] [address] [place] [address] Sep, [facility] [address] [id number] [address] [place] [id number] Sep, [facility] [address] [id number] [address] [place] [id number] Aug, [facility] [address] [id number] [address] [place] [id number] Aug, [facility] [address] [id number] [address] [place] [address] Aug, [facility] [address] [id number] [address] [place] [address] Aug, [facility] [address] [id number] [address] [place] [address], [place] [address] Aug, 2014 [facility] [address] [id number] [address] [place] [address], [place] [address] Aug, 2014 [facility] [address] [id number] [address] [place] [address], [place] [address] Aug, [facility] [address] [id number] [address] [place] [address], [place] [address] Aug, [facility] [address] [id number] [address] [place] [address], [place] [address] Jul, [facility] [address] [id number] [address] [place] [address], [place] [address] Jul, [facility] [address] [id number] [address] [place] [address], [place] [address] Jul, [facility] [address] [id number] [address] [place] [address], [place] [address] Jul, [facility] [address] [id number] [address] [place] [address], [place] [address] Jul, [facility] [address] [id number] [address] [place] [address], [place] [address] Jul, [facility] [address] [id number] [address] [place] [address], [place] [address] Jun, [facility] [address] [id number] [address] [place] [address], [place] [address] Jun, [facility] [address] [id number] [address] [place] [address], [place] [address] Jun, [facility] [address] [id number] [address] [place] [address], [place] [address] Jun, [facility] [address] [id number] [address] [place] [address], [place] [address] Jun, [facility] [address] [id number] [address] [place] [address], [place] [address] Jun, [facility] [address] [id number] [address] [place] [address], [place] [address] May, [facility] [address] [id number] [address] [place] [address], [place] [address] May, [facility] [address] [id number] [address] [place] [address], [place] [address] May, [facility] [address] [id number] [address] [place] [address], [place] [address] May, [facility] [address] [id number] [address] [place] [address], [place] [address] May, [facility] [address] [id number] [address] [place] [address], [place] [address] May, [facility] [address] [id number] [address] [place] [address], [place] [address] May, [facility] [address] [id number] [address] [place] [address], [place] [address] May, [facility] [address] [id number] [address] [place] [address], [place] [address] May, [facility] [address] [id number] [address] [place] [address], [place] [address] May, [facility] [address] [id number] [address] [place] [address], [place] [address] Apr, [facility] [address] [id number] [address] [place] [address], [place] [address] Apr, [facility] [address] [id number] [address] [place] [address], [place] [address] Apr, [facility] [address] [id number] [address] [place] [address], [place] [address] Apr, [facility] [address] [id number] [address] [place] [address], [place] [address] 09 Apr, 2014 [facility] [address] [id number] [address] [place] [address], [place] [address] Apr, [facility] [address] [id number] [address] [place] [address], [place] [address] Apr, [facility] [address] [id number] [address] [place] [address], [place] [address] Apr, [facility] [address] [id number] [address] [place] [address], [place] [address] 15 Mar, 2014 [facility] [address] [id number] [address] [place] [address], [place] [address] 15 Mar, 2014 [facility] [address] [id number] [address] [place] [address], [place] [address] Mar, [facility] [address] [id number] [address] [place] [address], [place] [address] Mar, [facility] [address] [id number] [address] [place] [address], [place] [address] Mar, [facility] [address] [id number] [address] [place] [address], [place] [address] Mar, [facility] [address] [id number] [address] [place] [address], [place] [address] Feb, [facility] [address] [id number] [address] [place] [address], [place] [address] Feb, [facility] [address] [id number] [address] [place] [address], [place] [address] Feb, [facility] [address] [id number] [address] [place] [address], [place] [address] Feb, [facility] [address] [id number] [address] [place] [address], [place] [address] Feb, [facility] [address] [id number] [address] [place] [address], [place] [address] Feb, [facility] [address] [id number] [address] [place] [address], [place] [address] Jan, [facility] [address] [id number] [facility] [place] [address] Jan, [facility] [address] [id number] [facility] [place] [address] Jan, [facility] [address] [id number] [facility] [place] [address] Jan, [facility] [address] [id number] [facility] [place] [address] Jan, [facility] [address] [id number] [facility] [place] [address] Jan, [facility] [address] [id number] [address] [place] [address], [place] [address] Dec, [facility] [address] [id number] [address] [place] [address], [place] [address] Dec, [facility] [address] [id number] [address] [place] [address], [place] [address] Dec, [facility] [address] [id number] [address] [place] [address], [place] [address] Dec, [facility] [address] [id number] [address] [place] [address], [place] [address] Dec, [facility] [address] [id number] [address] [place] [address], [place] [address] November, [facility] [address] [id number] [address] [place] [address], [place] [address] November, [facility] [address] [id number] [address] [place] [address], [place] [address] November, [facility] [address] [id number] [address] [place] [address], [place] [address] November, [facility] [address] [id number] [address] [place] [address], [place] [address] November, [facility] [address] [id number] [address] [place] [address], [place] [address] November, [facility] [address] [id number] [address] [place] [address], [place] [address] November, [facility] [address] [id number] [address] [place] [address], [place] [address] November, [facility] [address] [id number] [address] [place] [address], [place] [address] Oct, [facility] [address] [id number] [address] [place] [address], [place] [address] Oct, [facility] [address] [id number] [address] [place] [address], [place] [address] Oct, [facility] [address] [id number] [address] [place] [address], [place] [address] Oct, [facility] [address] [id number] [address] [place] [address], [place] [address] Oct, [facility] [address] [id number] [address] [place] [address], [place] [address] Oct, [facility] [address] [id number] [address] [place] [address], [place] [address] Sep, [facility] [address] [id number] [address] [place] [address], [place] [address] Sep, [facility] [address] [id number] [address] [place] [address], [place] [address] Sep, [facility] [address] [id number] [address] [place] [address], [place] [address] Sep, [facility] [address] [id number] [address] [place] [address], [place] [address] Sep, [facility] [address] [id number] [address] [place] [address], [place] [address] Sep, [facility] [address] [id number] [address] [place] [address], [place] [address] Aug, [facility] [address] [id number] [address] [place] [address], [place] [address] Aug, [facility] [address] [id number] [address] [place] [address], [place] [address] Jul, [facility] [address] [id number] [address] [place] [address], [place] [address] Jul, [facility] [address] [id number] [address] [place] [address], [place] [address] Jul, [facility] [address] [id number] [address] [place] [address], [place] [address] Jul, [facility] [address] [id number] [address] [place] [address], [place] [address] Jul, [facility] [address] [id number] [address] [place] [address], [place] [address] Jul, [facility] [address] [id number] [address] [place] [address], [place] [address] Jul, [facility] [address] [id number] [address] [place] [address], [place] [address] Jul, [facility] [address] [id number] [address] [place] [address], [place] [address] Jul, [facility] [address] [id number] [address] [place] [address], [place] [address] Jul, [facility] [address] [id number] [address] [place] [address], [place] [address] Jul, [facility] [address] [id number] [address] [place] [address], [place] [address] Jul, [facility] [address] [id number] [address] [place] [address], [place] [address] Jun, [facility] [address] [id number] [address] [place] [address], [place] [address] Jun, [facility] [address] [id number] [address] [place] [address], [place] [address] Jun, [facility] [address] [id number] [address] [place] [address], [place] [address] Jun, [facility] [address] [id number] [address] [place] [address], [place] [address] Jun, [facility] [address] [id number] [address] [place] [address], [place] [address] Jun, [facility] [address] [id number] [address] [place] [address], [place] [address] Jun, [facility] [address] [id number] [address] [place] [address], [place] [address] Jun, [facility] [address] [id number] [address] [place] [address], [place] [address] May, [facility] [address] [id number] [address] [place] [address], [place] [address] May, [facility] [address] [id number] [address] [place] [address] May, [facility] [address] [id number] [address] [place] [address], [place] [address] May, [facility] [address] [id number] [address] [place] [address] Apr, [facility] [address] [id number] [address] [place] [address] Apr, [facility] [address] [id number] [address] [place] [address] 07 Apr, 2013 [facility] [address] [id number] [address] [place] [address] 10 Mar, 2013 [facility] [address] [id number] [address] [place] [address] 09 Feb, 2013 [facility] [address] [id number] [address] [place] [id number] 15 Jan, 2013 [facility] [address] [id number] [address] [place] [id number] Jan, [facility] [address] [facility] [id number] [address] [address] Jan, IMMUNIZATIONS No Known Immunizations SOCIAL HISTORY Never Assessed REASON FOR VISIT PLAN OF CARE VITAL SIGNS Weight 196.25 lbs 2014-02-14 Temperature 98.1 degrees Fahrenheit 2014-02-14 Heart Rate 100 bpm 2014-02-14 Respiratory Rate 24 2014-02-14 Blood pressure systolic 148 mmHg 2014-02-14 Blood pressure diastolic 104 mmHg 2014-02-14 MEDICATIONS Unknown Medications RESULTS No Results PROCEDURES No Known procedures INSTRUCTIONS MEDICATIONS ADMINISTERED No Known Medications MEDICAL (GENERAL) HISTORY Type Description Date Hospitalization History UTI 12/04/2015
--- OUTSIDE RECORDS SUMMARY | 2020-01-12 11:28 | XMS REPORT ---
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 Active 51559045 Problem Depressive disorder, not elsewhere classified 311 Active 68865833 Problem Generalized anxiety disorder 300.02 A ctive 83186881 Problem Major depression F32.9 Active 370 521427 Problem Essential hypertension, benign 401.1 Active 6920405 Problem Generalized anxiety disorder F41.1 A ctive 27927430 Problem Pain in joint, lower leg 719.46 Activ e 515925150 Problem Anxiety state, unspecified 300.00 Act disha 255243553 Problem Other and unspecified hyperlipidemia 272.4 Active 09811346 Problem Major depressive disorder, recurrent episode, moderate 296 .32 Active 49835436 Problem Attention deficit hyperactivity disorder F90.9 Active [id number] ALLERGIES No Information ENCOUNTERS Encounter Location Date Diagnosis [facility] [address] [facility] [id number] [address] [place] [address] Jun, [facility] [address] [facility] [id number] [address] [place] [address] May, Generalized anxiety disorder F41.1 ; Major depression F32.9 and Attention deficit hyperactivity disorder F90.9 [facility] [address] [facility] [id number] [address] [place] [address] Feb, [facility] [address] [facility] [id number] [address] [place] [address] Jan, [facility] [address] [facility] [id number] [address] [place] [address] Dec, [facility] [address] [facility] [id number] [address] [place] [address] Dec, [facility] [address] [id number] [address] [place] [address] Dec, Generalized anxiety disorder F41.1 ; Major depression F32.9 and Attention deficit hyperactivity disorder F90.9 [facility] [address] [id number] [address] [place] [address] Oct, [facility] [address] [id number] [address] [place] [address] Oct, [facility] [address] [facility] [id number] [address] [place] [address] Sep, [facility] [address] [facility] [id number] [address] [place] [address] Sep, [facility] [address] [facility] [id number] [address] [place] [address] Aug, [facility] [address] [facility] [id number] [address] [place] [address] Aug, Generalized anxiety disorder F41.1 ; Major depression F32.9 and Attention deficit hyperactivity disorder F90.9 [facility] [address] [facility] [id number] [address] [place] [address] Aug, [facility] [address] [facility] [id number] [address] [place] [address] Aug, [facility] [address] [facility] [id number] [address] [place] [address] Jun, [facility] [address] [facility] [id number] [address] [place] [address] Jun, [facility] [address] [facility] [id number] [address] [place] [address] Jun, Attention deficit hyperactiv ity disorder F90.9 ; Generalized anxiety disorder F41.1 and Major depression F32.9 [facility] [address] [facility] [id number] [address] [place] [address] Jun, [facility] [address] [id number] [address] [place] [address] Apr, [facility] [address] [id number] [address] [place] [address] Mar, [facility] [address] [facility] [id number] [address] [place] [address] Mar, [facility] [address] [id number] [address] [place] [address] Feb, ADD (attention deficit disor nerissa) 314.00 ; Major depressive disorder, recurrent episode, moderate 296.32 and Generalized anxiety disorder 300.02 [facility] [address] [id number] [address] [place] [address] Feb, [facility] [address] [facility] [id number] [address] [place] [address] Feb, [facility] [address] [facility] [id number] [address] [place] [address] Jan, [facility] [address] [id number] [address] [place] [address] Jan, [facility] [address] [facility] [id number] [address] [place] [address] Jan, [facility] [address] [facility] [id number] [address] [place] [address] Jan, [facility] [address] [facility] [id number] [address] [place] [address] Dec, [facility] [address] [id number] [address] [place] [address] Dec, [facility] [address] [facility] [id number] [address] [place] [address] Dec, [facility] [address] [facility] [id number] [address] [place] [address] November, Attention deficit disorder o f childhood 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 314.00 ; Generalized anxiety disorder 300.02 and Major depressive disorder, recurrent episode, moderate 296.32 [facility] [address] [id number] [address] [place] [address] November, [facility] [address] [id number] [address] [place] [address] November, [facility] [address] [id number] [address] [place] [address] November, Anxiety state 300.00 [facility] [address] [id number] [address] [place] [address] Oct, [facility] [address] [id number] [address] [place] [address] Oct, [facility] [address] [id number] [address] [place] [address] Sep, [facility] [address] [id number] [address] [place] [address] Sep, [facility] [address] [id number] [address] [place] [address] Sep, [facility] [address] [id number] [address] [place] [address] Sep, [facility] [address] [facility] [id number] [address] [place] [address] Sep, [facility] [address] [id number] [address] [place] [address] Sep, [facility] [address] [id number] [address] [place] [address] Aug, [facility] [address] [id number] [address] [place] [address] Aug, [facility] [address] [id number] [address] [place] [address] Aug, [facility] [address] [id number] [address] [place] [address] Aug, [facility] [address] [id number] [address] [place] [address], [place] [address] Aug, [facility] [address] [id number] [address] [place] [address], [place] [address] Aug, 2014 [facility] [address] [id number] [address] [place] [address], [place] [address] Aug, [facility] [address] [id number] [address] [place] [address], [place] [address] Aug, [facility] [address] [id number] [address] [place] [address], [place] [address] Jul, [facility] [address] [id number] [address] [place] [address], [place] [address] Jul, [facility] [address] [id number] [address] [place] [address], [place] [address] Jul, [facility] [address] [id number] [address] [place] [address], [place] [address] Jul, [facility] [address] [id number] [address] [place] [address], [place] [address] Jul, [facility] [address] [id number] [address] [place] [address], [place] [address] Jul, [facility] [address] [id number] [address] [place] [address], [place] [address] Jun, [facility] [address] [id number] [address] [place] [address] Jun, [facility] [address] [id number] [address] [place] [address], [place] [address] Jun, [facility] [address] [id number] [address] [place] [address], [place] [address] Jun, [facility] [address] [id number] [address] [place] [address], [place] [address] Jun, [facility] [address] [id number] [address] [place] [address], [place] [address] Jun, [facility] [address] [id number] [address] [place] [address], [place] [address] May, [facility] [address] [id number] [address] [place] [address], [place] [address] May, [facility] [address] [id number] [address] [place] [address], [place] [address] May, [facility] [address] [id number] [address] [place] [address], [place] [address] May, [facility] [address] [id number] [address] [place] [address], [place] [address] May, [facility] [address] [id number] [address] [place] [address], [place] [address] May, [facility] [address] [id number] [address] [place] [address], [place] [address] May, [facility] [address] [id number] [address] [place] [address], [place] [address] May, [facility] [address] [id number] [address] [place] [address], [place] [address] May, [facility] [address] [id number] [address] [place] [address], [place] [address] May, [facility] [address] [id number] [address] [place] [address], [place] [address] Apr, [facility] [address] [id number] [address] [place] [address], [place] [address] Apr, [facility] [address] [id number] [address] [place] [address], [place] [address] Apr, [facility] [address] [id number] [address] [place] [address], [place] [address] Apr, [facility] [address] [id number] [address] [place] [address], [place] [address] Apr, [facility] [address] [id number] [address] [place] [address], [place] [address] Apr, [facility] [address] [id number] [address] [place] [address], [place] [address] Apr, [facility] [address] [id number] [address] [place] [address], [place] [address] Apr, [facility] [address] [id number] [address] [place] [address], [place] [address] Mar, [facility] [address] [id number] [address] [place] [address], [place] [address] 15 Mar, 2014 [facility] [address] [id number] [address] [place] [address], [place] [address] Mar, [facility] [address] [id number] [address] [place] [address], [place] [address] Mar, [facility] [address] [id number] [address] [place] [address], [place] [address] Mar, [facility] [address] [id number] [address] [place] [address], [place] [address] Mar, [facility] [address] [id number] [address] [place] [address], [place] [address] Feb, [facility] [address] [id number] [address] [place] [address], [place] [address] Feb, [facility] [address] [id number] [address] [place] [address], [place] [address] Feb, [facility] [address] [id number] [address] [place] [address], [place] [address] Feb, [facility] [address] [id number] [address] [place] [address], [place] [address] Feb, [facility] [address] [id number] [address] [place] [address], [place] [address] Feb, [facility] [address] [id number] [facility] [place] [address] Jan, [facility] [address] [id number] [address] [place] [address], [place] [address] Jan, [facility] [address] [id number] [facility] [place] [address] Jan, [facility] [address] [id number] [address] [place] [address], [place] [address] Jan, [facility] [address] [id number] [address] [place] [address], [place] [address] Jan, [facility] [address] [id number] [address] [place] [address], [place] [address] Jan, [facility] [address] [id number] [address] [place] [address], [place] [address] Dec, [facility] [address] [id number] [address] [place] [address], [place] [address] Dec, [facility] [address] [id number] [address] [place] [address], [place] [address] Dec, [facility] [address] [id number] [address] [place] [address], [place] [address] Dec, [facility] [address] [id number] [address] [place] [address], [place] [address] Dec, [facility] [address] [id number] [address] [place] [address], [place] [address] November, [facility] [address] [id number] [address] [place] [address], [place] [address] November, [facility] [address] [id number] [address] [place] [address], [place] [address] November, [facility] [address] [id number] [address] [place] [address], [place] [address] November, [facility] [address] [id number] [address] [place] [address], [place] [address] November, [facility] [address] [id number] [address] [place] [address], [place] [address] November, [facility] [address] [id number] [address] [place] [address], [place] [address] November, [facility] [address] [id number] [address] [place] [address], [place] [address] November, [facility] [address] [id number] [address] [place] [address], [place] [address] Oct, [facility] [address] [id number] [address] [place] [address], [place] [address] Oct, [facility] [address] [id number] [address] [place] [address], [place] [address] Oct, [facility] [address] [id number] [address] [place] [address], [place] [address] Oct, [facility] [address] [id number] [address] [place] [address], [place] [address] Oct, [facility] [address] [id number] [address] [place] [address], [place] [address] Oct, [facility] [address] [id number] [address] [place] [address], [place] [address] Sep, [facility] [address] [id number] [address] [place] [address], [place] [address] Sep, [facility] [address] [id number] [address] [place] [address], [place] [address] Sep, [facility] [address] [id number] [address] [place] [address], [place] [address] Sep, [facility] [address] [id number] [address] [place] [address], [place] [address] Sep, [facility] [address] [id number] [address] [place] [address], [place] [address] Sep, [facility] [address] [id number] [address] [place] [address], [place] [address] Aug, [facility] [address] [id number] [address] [place] [address], [place] [address] Aug, [facility] [address] [id number] [address] [place] [address], [place] [address] Jul, [facility] [address] [id number] [address] [place] [address], [place] [address] Jul, [facility] [address] [id number] [address] [place] [address], [place] [address] Jul, [facility] [address] [id number] [address] [place] [address], [place] [address] Jul, [facility] [address] [id number] [address] [place] [address], [place] [address] Jul, [facility] [address] [id number] [address] [place] [address], [place] [address] Jul, [facility] [address] [id number] [address] [place] [address], [place] [address] Jul, [facility] [address] [id number] [address] [place] [address], [place] [address] Jul, [facility] [address] [id number] [address] [place] [address], [place] [address] Jul, [facility] [address] [id number] [address] [place] [address], [place] [address] Jul, [facility] [address] [id number] [address] [place] [address], [place] [address] Jul, [facility] [address] [id number] [address] [place] [address], [place] [address] Jul, [facility] [address] [id number] [address] [place] [address], [place] [address] Jun, [facility] [address] [id number] [address] [place] [address], [place] [address] Jun, [facility] [address] [id number] [address] [place] [address], [place] [address] 20 Jun, 2013 [facility] [address] [id number] [address] [place] [address], [place] [address] 20 Jun, 2013 [facility] [address] [id number] [address] [place] [address], [place] [address] Jun, [facility] [address] [id number] [address] [place] [address], [place] [address] Jun, [facility] [address] [id number] [address] [place] [address], [place] [address] Jun, [facility] [address] [id number] [address] [place] [address], [place] [address] Jun, [facility] [address] [id number] [address] [place] [address], [place] [address] 18 May, 2013 [facility] [address] [id number] [address] [place] [address], [place] [address] 18 May, 2013 [facility] [address] [id number] [address] [place] [address], [place] [address] May, [facility] [address] [id number] [address] [place] [address], [place] [address] May, [facility] [address] [id number] [address] [place] [address], [place] [address] 10 Apr, 2013 [facility] [address] [id number] [address] [place] [address], [place] [address] 10 Apr, 2013 [facility] [address] [id number] [address] [place] [address], [place] [address] 07 Apr, 2013 [facility] [address] [id number] [address] [place] [address], [place] [address] 10 Mar, 2013 [facility] [address] [id number] [address] [place] [address], [place] [id number] 09 Feb, 2013 [facility] [address] [id number] [address] [place] [address], [place] [id number] Jan, [facility] [address] [facility] [id number] [address] [place] [id number] Jan, [facility] [address] [facility] [id number] [address] [place] [phone] Jan, IMMUNIZATIONS No Known Immunizations SOCIAL HISTORY Never Assessed REASON FOR VISIT PLAN OF CARE VITAL SIGNS Height 69 in 2014-07-16 Weight 188.25 lbs 2014-07-16 Temperature 97.9 degrees Fahrenheit 2014-07-16 Heart Rate 98 bpm 2014-07-16 Respiratory Rate 28 2014-07-16 Blood pressure systolic 158 mmHg 2014-07-16 Blood pressure diastolic 102 mmHg 2014-07-16 MEDICATIONS Unknown Medications RESULTS No Results PROCEDURES No Known procedures INSTRUCTIONS MEDICATIONS ADMINISTERED No Known Medications MEDICAL (GENERAL) HISTORY Type Description Date Hospitalization History UTI 12/04/2015
--- OUTSIDE RECORDS SUMMARY | 2020-01-12 11:28 | XMS REPORT ---
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 Active 48140467 Problem Depressive disorder, not elsewhere classified 311 Active 83646231 Problem Generalized anxiety disorder 300.02 A ctive 03357426 Problem Major depression F32.9 Active 370 074577 Problem Essential hypertension, benign 401.1 Active 6188206 Problem Generalized anxiety disorder F41.1 A ctive 33872932 Problem Pain in joint, lower leg 719.46 Activ e 063023792 Problem Anxiety state, unspecified 300.00 Act disha 798549679 Problem Other and unspecified hyperlipidemia 272.4 Active 79713268 Problem Major depressive disorder, recurrent episode, moderate 296 .32 Active 23605782 Problem Attention deficit hyperactivity disorder F90.9 Active [id number] ALLERGIES No Information ENCOUNTERS Encounter Location Date Diagnosis [facility] [address] [facility] [id number] [address] [place] [id number] Jun, [facility] [address] [place] [id number] [address] [place] [address] May, Generalized anxiety disorder F41.1 ; Major depression F32.9 and Attention deficit hyperactivity disorder F90.9 [facility] [address] [facility] [id number] [address] [place] [phone] Feb, [facility] [address] [id number] [address] [place] [address] Jan, [facility] [address] [facility] [id number] [address] [place] [address] Dec, [facility] [address] [facility] [id number] [address] [place] [phone] Dec, [facility] [address] [facility] [id number] [address] [place] [address] Dec, Generalized anxiety disorder F41.1 ; Major depression F32.9 and Attention deficit hyperactivity disorder F90.9 [facility] [address] [id number] [address] [place] [address] Oct, [facility] [address] [facility] [id number] [address] [place] [address] Oct, [facility] [address] [facility] [id number] [address] [place] [id number] Sep, [facility] [address] [facility] [id number] [address] [place] [phone] Sep, [facility] [address] [facility] [id number] [address] [place] [address] Aug, [facility] [address] [facility] [id number] [address] [place] [phone] Aug, Generalized anxiety disorder F41.1 ; Major depression F32.9 and Attention deficit hyperactivity disorder F90.9 [facility] [address] [facility] [id number] [address] [place] [phone] Aug, [facility] [address] [facility] [id number] [address] [place] [phone] Aug, [facility] [address] [facility] [id number] [address] [place] [phone] Jun, [facility] [address] [facility] [id number] [address] [place] [phone] Jun, [facility] [address] [facility] [id number] [address] [place] [address] Jun, Attention deficit hyperactiv ity disorder F90.9 ; Generalized anxiety disorder F41.1 and Major depression F32.9 [facility] [address] [facility] [id number] [address] [place] [address] Jun, [facility] [address] [id number] [address] [place] [address] Apr, [facility] [address] [id number] [address] [place] [id number] Mar, [facility] [address] [id number] [address] [place] [phone] Mar, [facility] [address] [id number] [address] [place] [address] Feb, ADD (attention deficit disor nerissa) 314.00 ; Major depressive disorder, recurrent episode, moderate 296.32 and Generalized anxiety disorder 300.02 [facility] [address] [id number] [address] [place] [id number] Feb, [facility] [address] [id number] [address] [place] [phone] Feb, [facility] [address] [facility] [id number] [address] [place] [phone] Jan, [facility] [address] [id number] [address] [place] [phone] Jan, [facility] [address] [facility] [id number] [address] [place] [address] Jan, [facility] [address] [facility] [id number] [address] [place] [phone] Jan, [facility] [address] [id number] [address] [place] [address] Dec, [facility] [address] [id number] [address] [place] [address] Dec, [facility] [address] [id number] [address] [place] [phone] Dec, [facility] [address] [facility] [id number] [address] [place] [address] November, Attention deficit disorder o f childhood 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 314.00 ; Generalized anxiety disorder 300.02 and Major depressive disorder, recurrent episode, moderate 296.32 [facility] [address] [id number] [address] [place] [phone] November, [facility] [address] [id number] [address] [place] [phone] November, [facility] [address] [id number] [address] [place] [phone] November, Anxiety state 300.00 [facility] [address] [id number] [address] [place] [phone] Oct, [facility] [address] [id number] [address] [place] [address], [place] [address] Oct, [facility] [address] [id number] [address] [place] [phone] Sep, [facility] [address] [id number] [address] [place] [id number] Sep, [facility] [address] [id number] [address] [place] [phone] Sep, [facility] [address] [id number] [address] [place] [phone] Sep, [facility] [address] [id number] [address] [place] [id number] Sep, [facility] [address] [id number] [address] [place] [phone] Sep, [facility] [address] [id number] [address] [place] [phone] Aug, [facility] [address] [id number] [address] [place] [phone] Aug, [facility] [address] [id number] [address] [place] [phone] Aug, [facility] [address] [id number] [address] [place] [phone] Aug, [facility] [address] [id number] [address] [place] [address], [place] [address] Aug, 2014 [facility] [address] [id number] [address] [place] [address], [place] [address] Aug, 2014 [facility] [address] [id number] [address] [place] [address], [place] [address] Aug, [facility] [address] [id number] [address] [place] [address], [place] [address] Aug, [facility] [address] [id number] [address] [place] [address], [place] [address] Jul, [facility] [address] [id number] [address] [place] [address], [place] [address] Jul, [facility] [address] [id number] [address] [place] [address], [place] [address] Jul, [facility] [address] [id number] [address] [place] [address], [place] [address] Jul, [facility] [address] [id number] [address] [place] [address], [place] [address] Jul, [facility] [address] [id number] [address] [place] [address], [place] [address] Jul, [facility] [address] [id number] [address] [place] [address], [place] [address] Jun, [facility] [address] [id number] [address] [place] [address], [place] [address] Jun, [facility] [address] [id number] [address] [place] [address], [place] [address] Jun, [facility] [address] [id number] [address] [place] [address], [place] [address] Jun, [facility] [address] [id number] [address] [place] [address], [place] [address] Jun, [facility] [address] [id number] [address] [place] [address], [place] [address] Jun, [facility] [address] [id number] [address] [place] [address], [place] [address] May, [facility] [address] [id number] [address] [place] [address], [place] [address] May, [facility] [address] [id number] [address] [place] [address], [place] [address] May, [facility] [address] [id number] [address] [place] [address], [place] [address] May, [facility] [address] [id number] [address] [place] [address], [place] [address] May, [facility] [address] [id number] [address] [place] [address], [place] [address] May, [facility] [address] [id number] [address] [place] [address], [place] [address] May, [facility] [address] [id number] [address] [place] [address], [place] [address] May, [facility] [address] [id number] [address] [place] [address], [place] [address] May, [facility] [address] [id number] [address] [place] [address], [place] [address] May, [facility] [address] [id number] [address] [place] [address], [place] [address] Apr, [facility] [address] [id number] [address] [place] [address], [place] [address] Apr, [facility] [address] [id number] [address] [place] [address], [place] [address] Apr, [facility] [address] [id number] [address] [place] [address], [place] [address] Apr, [facility] [address] [id number] [address] [place] [address], [place] [address] 09 Apr, 2014 [facility] [address] [id number] [address] [place] [address], [place] [address] Apr, [facility] [address] [id number] [address] [place] [address], [place] [address] Apr, [facility] [address] [id number] [address] [place] [address], [place] [address] Apr, [facility] [address] [id number] [address] [place] [address], [place] [address] 15 Mar, 2014 [facility] [address] [id number] [address] [place] [address], [place] [address] 15 Mar, 2014 [facility] [address] [id number] [address] [place] [address], [place] [address] Mar, [facility] [address] [id number] [address] [place] [address], [place] [address] Mar, [facility] [address] [id number] [address] [place] [address], [place] [address] Mar, [facility] [address] [id number] [address] [place] [address], [place] [address] Mar, [facility] [address] [id number] [address] [place] [address], [place] [address] Feb, [facility] [address] [id number] [address] [place] [address], [place] [address] Feb, [facility] [address] [id number] [address] [place] [address], [place] [address] Feb, [facility] [address] [id number] [address] [place] [address], [place] [address] Feb, [facility] [address] [id number] [address] [place] [address], [place] [address] Feb, [facility] [address] [id number] [address] [place] [address], [place] [address] Feb, [facility] [address] [id number] [address] [place] [address], [place] [address] Jan, [facility] [address] [id number] [address] [address] Jan, [facility] [address] [id number] [facility] [address] Jan, [facility] [address] [id number] [facility] [address] Jan, [facility] [address] [id number] [facility] [address] Jan, [facility] [address] [id number] [facility] [address] Jan, [facility] [address] [id number] [address] [place] [address], [place] [address] Dec, [facility] [address] [id number] [address] [place] [address], [place] [address] Dec, [facility] [address] [id number] [address] [place] [address], [place] [address] Dec, [facility] [address] [id number] [address] [place] [address], [place] [address] Dec, [facility] [address] [id number] [address] [place] [address], [place] [address] Dec, [facility] [address] [id number] [address] [place] [address], [place] [address] November, [facility] [address] [id number] [address] [place] [address], [place] [address] November, [facility] [address] [id number] [address] [place] [address], [place] [address] November, [facility] [address] [id number] [address] [place] [address], [place] [address] November, [facility] [address] [id number] [address] [place] [address], [place] [address] November, [facility] [address] [id number] [address] [place] [address], [place] [address] November, [facility] [address] [id number] [address] [place] [address], [place] [address] November, [facility] [address] [id number] [address] [place] [address], [place] [address] November, [facility] [address] [id number] [address] [place] [address], [place] [address] Oct, [facility] [address] [id number] [address] [place] [address], [place] [address] Oct, [facility] [address] [id number] [address] [place] [address], [place] [address] Oct, [facility] [address] [id number] [address] [place] [address], [place] [address] Oct, [facility] [address] [id number] [address] [place] [address], [place] [address] Oct, [facility] [address] [id number] [address] [place] [address], [place] [address] Oct, [facility] [address] [id number] [address] [place] [address], [place] [address] Sep, [facility] [address] [id number] [address] [place] [address], [place] [address] Sep, [facility] [address] [id number] [address] [place] [address], [place] [address] Sep, [facility] [address] [id number] [address] [place] [address], [place] [address] Sep, [facility] [address] [id number] [address] [place] [address], [place] [address] Sep, [facility] [address] [id number] [address] [place] [address], [place] [address] Sep, [facility] [address] [id number] [address] [place] [address], [place] [address] Aug, [facility] [address] [id number] [address] [place] [address], [place] [address] Aug, [facility] [address] [id number] [address] [place] [address], [place] [address] Jul, [facility] [address] [id number] [address] [place] [address], [place] [address] Jul, [facility] [address] [id number] [address] [place] [address], [place] [address] Jul, [facility] [address] [id number] [address] [place] [address], [place] [address] Jul, [facility] [address] [id number] [address] [place] [address], [place] [address] Jul, [facility] [address] [id number] [address] [place] [address], [place] [address] Jul, [facility] [address] [id number] [address] [place] [address], [place] [address] Jul, [facility] [address] [id number] [address] [place] [address], [place] [address] Jul, [facility] [address] [id number] [address] [place] [address], [place] [address] Jul, [facility] [address] [id number] [address] [place] [address], [place] [address] Jul, [facility] [address] [id number] [address] [place] [address], [place] [address] Jul, [facility] [address] [id number] [address] [place] [address], [place] [address] Jul, [facility] [address] [id number] [address] [place] [address], [place] [address] Jun, [facility] [address] [id number] [address] [place] [address], [place] [address] Jun, [facility] [address] [id number] [address] [place] [address], [place] [address] Jun, [facility] [address] [id number] [address] [place] [address], [place] [address] Jun, [facility] [address] [id number] [address] [place] [address], [place] [address] Jun, [facility] [address] [id number] [address] [place] [address], [place] [address] Jun, [facility] [address] [id number] [address] [place] [address], [place] [address] Jun, [facility] [address] [id number] [address] [place] [address], [place] [address] Jun, [facility] [address] [id number] [address] [place] [address], [place] [address] May, [facility] [address] [id number] [address] [place] [address], [place] [id number] May, [facility] [address] [id number] [address] [place] [id number] May, [facility] [address] [id number] [address] [place] [address], [place] [id number] May, [facility] [address] [id number] [address] [place] [id number] Apr, [facility] [address] [id number] [address] [place] [id number] Apr, [facility] [address] [id number] [address] [place] [id number] 07 Apr, 2013 [facility] [address] [id number] [address] [place] [id number] 10 Mar, 2013 [facility] [address] [id number] [address] [place] [id number] 09 Feb, 2013 [facility] [address] [id number] [address] [place] [id number] 15 Jan, 2013 [facility] [address] [id number] [address] [place] [id number] Jan, [facility] [address] [facility] [id number] [address] [place] [phone] Jan, IMMUNIZATIONS No Known Immunizations SOCIAL HISTORY Never Assessed REASON FOR VISIT PLAN OF CARE VITAL SIGNS MEDICATIONS Unknown Medications RESULTS No Results PROCEDURES No Known procedures INSTRUCTIONS MEDICATIONS ADMINISTERED No Known Medications MEDICAL (GENERAL) HISTORY Type Description Date Hospitalization History UTI 12/04/2015
--- OUTSIDE RECORDS SUMMARY | 2020-01-12 11:29 | XMS REPORT ---
Author Author Cj RASHID Organization 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 Active [id number] Problem Depressive disorder, not elsewhere classified 311 Active 70530139 Problem Generalized anxiety disorder 300.02 A ctive 31523719 Problem Major depression F32.9 Active 370 808745 Problem Essential hypertension, benign 401.1 Active 1358504 Problem Generalized anxiety disorder F41.1 A ctive 01201395 Problem Pain in joint, lower leg 719.46 Activ e 919951335 Problem Anxiety state, unspecified 300.00 Act disha 500136349 Problem Other and unspecified hyperlipidemia 272.4 Active 70678732 Problem Major depressive disorder, recurrent episode, moderate 296 .32 Active 22497993 Problem Attention deficit hyperactivity disorder F90.9 Active [id number] ALLERGIES No Information ENCOUNTERS Encounter Location Date Diagnosis [facility] [address] [facility] [id number] [address] [place] [address] Jun, [facility] [address] [facility] [id number] [address] [place] [address] May, Generalized anxiety disorder F41.1 ; Major depression F32.9 and Attention deficit hyperactivity disorder F90.9 [facility] [address] [facility] [id number] [address] [place] [address] Feb, [facility] [address] [facility] [id number] [address] [place] [address] Jan, [facility] [address] [facility] [id number] [address] [place] [address] Dec, [facility] [address] [place] [id number] [address] [place] [address] Dec, [facility] [address] [facility] [id number] [address] [place] [address] Dec, Generalized anxiety disorder F41.1 ; Major depression F32.9 and Attention deficit hyperactivity disorder F90.9 [facility] [address] [id number] [address] [place] [address] Oct, [facility] [address] [facility] [id number] [address] [place] [address] Oct, [facility] [address] [facility] [id number] [address] [place] [address] Sep, [facility] [address] [facility] [id number] [address] [place] [address] Sep, [facility] [address] [facility] [id number] [address] [place] [address] Aug, [facility] [address] [facility] [id number] [address] [place] [address] Aug, Generalized anxiety disorder F41.1 ; Major depression F32.9 and Attention deficit hyperactivity disorder F90.9 [facility] [address] [facility] [id number] [address] [place] [address] Aug, [facility] [address] [facility] [id number] [address] [place] [address] Aug, [facility] [address] [facility] [id number] [address] [place] [address] Jun, [facility] [address] [facility] [id number] [address] [place] [address] Jun, [facility] [address] [facility] [id number] [address] [place] [address] Jun, Attention deficit hyperactiv ity disorder F90.9 ; Generalized anxiety disorder F41.1 and Major depression F32.9 [facility] [address] [facility] [id number] [address] [place] [address] Jun, [facility] [address] [id number] [address] [place] [address] Apr, [facility] [address] [facility] [id number] [address] [place] [address] Mar, [facility] [address] [facility] [id number] [address] [place] [address] Mar, [facility] [address] [id number] [address] [place] [address] Feb, ADD (attention deficit disor nerissa) 314.00 ; Major depressive disorder, recurrent episode, moderate 296.32 and Generalized anxiety disorder 300.02 [facility] [address] [id number] [address] [place] [address] Feb, [facility] [address] [facility] [id number] [address] [place] [address] Feb, [facility] [address] [facility] [id number] [address] [place] [address] Jan, [facility] [address] [facility] [id number] [address] [place] [address] Jan, [facility] [address] [facility] [id number] [address] [place] [address] Jan, [facility] [address] [facility] [id number] [address] [place] [address] Jan, [facility] [address] [facility] [id number] [address] [place] [address] Dec, [facility] [address] [id number] [address] [place] [address] Dec, [facility] [address] [facility] [id number] [address] [place] [address] Dec, [facility] [address] [facility] [id number] [address] [place] [address] November, Attention deficit disorder o f childhood 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 314.00 ; Generalized anxiety disorder 300.02 and Major depressive disorder, recurrent episode, moderate 296.32 [facility] [address] [id number] [address] [place] [address] November, [facility] [address] [id number] [address] [place] [address] November, [facility] [address] [id number] [address] [place] [address] November, Anxiety state 300.00 [facility] [address] [id number] [address] [place] [address] Oct, [facility] [address] [id number] [address] [place] [address] Oct, [facility] [address] [facility] [id number] [address] [place] [address] Sep, [facility] [address] [id number] [address] [place] [address] Sep, [facility] [address] [id number] [address] [place] [address] Sep, [facility] [address] [facility] [id number] [address] [place] [address] Sep, [facility] [address] [facility] [id number] [address] [place] [address] Sep, [facility] [address] [id number] [address] [place] [address] Sep, [facility] [address] [id number] [address] [place] [address] Aug, [facility] [address] [id number] [address] [place] [address] Aug, [facility] [address] [facility] [id number] [address] [place] [address] Aug, [facility] [address] [facility] [id number] [address] [place] [address] Aug, 2014 [facility] [address] [id number] [address] [place] [address], [place] [address] Aug, 2014 [facility] [address] [id number] [address] [place] [address], [place] [address] Aug, 2014 [facility] [address] [id number] [address] [place] [address], [place] [address] Aug, [facility] [address] [id number] [address] [place] [address], [place] [address] Aug, [facility] [address] [id number] [address] [place] [address], [place] [address] Jul, [facility] [address] [id number] [address] [place] [address], [place] [address] Jul, [facility] [address] [id number] [address] [place] [address], [place] [address] Jul, [facility] [address] [id number] [address] [place] [address], [place] [address] Jul, [facility] [address] [id number] [address] [place] [address], [place] [address] Jul, [facility] [address] [id number] [address] [place] [address], [place] [address] Jul, [facility] [address] [id number] [address] [place] [address], [place] [address] Jun, [facility] [address] [id number] [address] [place] [address], [place] [address] Jun, [facility] [address] [id number] [address] [place] [address], [place] [address] Jun, [facility] [address] [id number] [address] [place] [address], [place] [address] Jun, [facility] [address] [id number] [address] [place] [address], [place] [address] Jun, [facility] [address] [id number] [address] [place] [address], [place] [address] Jun, [facility] [address] [id number] [address] [place] [address], [place] [address] May, [facility] [address] [id number] [address] [place] [address], [place] [address] May, [facility] [address] [id number] [address] [place] [address], [place] [address] May, [facility] [address] [id number] [address] [place] [address], [place] [address] May, [facility] [address] [id number] [address] [place] [address], [place] [address] May, [facility] [address] [id number] [address] [place] [address], [place] [address] May, [facility] [address] [id number] [address] [place] [address], [place] [address] May, [facility] [address] [id number] [address] [place] [address], [place] [address] May, [facility] [address] [id number] [address] [place] [address], [place] [address] May, [facility] [address] [id number] [address] [place] [address], [place] [address] May, [facility] [address] [id number] [address] [place] [address], [place] [address] Apr, [facility] [address] [id number] [address] [place] [address], [place] [address] Apr, [facility] [address] [id number] [address] [place] [address], [place] [address] Apr, [facility] [address] [id number] [address] [place] [address], [place] [address] Apr, [facility] [address] [id number] [address] [place] [address], [place] [address] Apr, [facility] [address] [id number] [address] [place] [address], [place] [address] Apr, [facility] [address] [id number] [address] [place] [address], [place] [address] Apr, [facility] [address] [id number] [address] [place] [address], [place] [address] Apr, [facility] [address] [id number] [address] [place] [address], [place] [address] Mar, [facility] [address] [id number] [address] [place] [address], [place] [address] 15 Mar, 2014 [facility] [address] [id number] [address] [place] [address], [place] [address] Mar, [facility] [address] [id number] [address] [place] [address], [place] [address] Mar, [facility] [address] [id number] [address] [place] [address], [place] [address] Mar, [facility] [address] [id number] [address] [place] [address], [place] [address] Mar, [facility] [address] [id number] [address] [place] [address], [place] [address] Feb, [facility] [address] [id number] [address] [place] [address], [place] [address] Feb, [facility] [address] [id number] [address] [place] [address], [place] [address] Feb, [facility] [address] [id number] [address] [place] [address], [place] [address] Feb, [facility] [address] [id number] [address] [place] [address], [place] [address] Feb, [facility] [address] [id number] [address] [place] [address], [place] [address] Feb, [facility] [address] [id number] [facility] [place] [address] Jan, [facility] [address] [id number] [facility] [place] [address] Jan, [facility] [address] [id number] [facility] [place] [address] Jan, [facility] [address] [id number] [facility] [place] [address] Jan, [facility] [address] [id number] [facility] [place] [address] Jan, [facility] [address] [id number] [address] [place] [address], [place] [address] Jan, [facility] [address] [id number] [address] [place] [address], [place] [address] Dec, [facility] [address] [id number] [address] [place] [address], [place] [address] Dec, [facility] [address] [id number] [address] [place] [address], [place] [address] Dec, [facility] [address] [id number] [address] [place] [address], [place] [address] Dec, [facility] [address] [id number] [address] [place] [address], [place] [address] Dec, [facility] [address] [id number] [address] [place] [address], [place] [address] November, [facility] [address] [id number] [address] [place] [address], [place] [address] November, [facility] [address] [id number] [address] [place] [address], [place] [address] November, [facility] [address] [id number] [address] [place] [address], [place] [address] November, [facility] [address] [id number] [address] [place] [address], [place] [address] November, [facility] [address] [id number] [address] [place] [address], [place] [address] November, [facility] [address] [id number] [address] [place] [address], [place] [address] November, [facility] [address] [id number] [address] [place] [address], [place] [address] November, [facility] [address] [id number] [address] [place] [address], [place] [address] Oct, [facility] [address] [id number] [address] [place] [address], [place] [address] Oct, [facility] [address] [id number] [address] [place] [address], [place] [address] Oct, [facility] [address] [id number] [address] [place] [address], [place] [address] Oct, [facility] [address] [id number] [address] [place] [address], [place] [address] Oct, [facility] [address] [id number] [address] [place] [address], [place] [address] Oct, [facility] [address] [id number] [address] [place] [address], [place] [address] Sep, [facility] [address] [id number] [address] [place] [address], [place] [address] Sep, [facility] [address] [id number] [address] [place] [address], [place] [address] Sep, [facility] [address] [id number] [address] [place] [address], [place] [address] Sep, [facility] [address] [id number] [address] [place] [address], [place] [address] Sep, [facility] [address] [id number] [address] [place] [address], [place] [address] Sep, [facility] [address] [id number] [address] [place] [address], [place] [address] 03 Aug, 2013 [facility] [address] [id number] [address] [place] [address], [place] [address] Aug, [facility] [address] [id number] [address] [place] [address], [place] [address] Jul, [facility] [address] [id number] [address] [place] [address], [place] [address] Jul, [facility] [address] [id number] [address] [place] [address], [place] [address] Jul, [facility] [address] [id number] [address] [place] [address], [place] [address] Jul, [facility] [address] [id number] [address] [place] [address], [place] [address] Jul, [facility] [address] [id number] [address] [place] [address], [place] [address] Jul, [facility] [address] [id number] [address] [place] [address], [place] [address] Jul, [facility] [address] [id number] [address] [place] [address], [place] [address] Jul, [facility] [address] [id number] [address] [place] [address], [place] [address] Jul, [facility] [address] [id number] [address] [place] [address], [place] [address] Jul, [facility] [address] [id number] [address] [place] [address], [place] [address] Jul, [facility] [address] [id number] [address] [place] [address], [place] [address] Jul, [facility] [address] [id number] [address] [place] [address], [place] [address] Jun, [facility] [address] [id number] [address] [place] [address], [place] [address] Jun, [facility] [address] [id number] [address] [place] [address], [place] [address] Jun, [facility] [address] [id number] [address] [place] [address], [place] [address] Jun, [facility] [address] [id number] [address] [place] [address], [place] [address] Jun, [facility] [address] [id number] [address] [place] [address], [place] [address] Jun, [facility] [address] [id number] [address] [place] [address], [place] [address] Jun, [facility] [address] [id number] [address] [place] [address], [place] [address] Jun, [facility] [address] [id number] [address] [place] [address], [place] [address] May, [facility] [address] [id number] [address] [place] [address], [place] [address] May, [facility] [address] [id number] [address] [place] [address], [place] [address] May, [facility] [address] [id number] [address] [place] [address], [place] [address] May, [facility] [address] [id number] [address] [place] [address], [place] [address] Apr, [facility] [address] [id number] [address] [place] [address], [place] [address] Apr, [facility] [address] [id number] [address] [place] [address], [place] [address] Apr, [facility] [address] [id number] [address] [place] [address], [place] [address] Mar, [facility] [address] [id number] [address] [place] [address], [place] [address] Feb, [facility] [address] [id number] [address] [place] [address], [place] [address] Jan, [facility] [address] [facility] [id number] [address] [address] Jan, [facility] [address] [facility] [id number] [address] [place] [address] Jan, IMMUNIZATIONS No Known Immunizations SOCIAL HISTORY Never Assessed REASON FOR VISIT PLAN OF CARE VITAL SIGNS MEDICATIONS Unknown Medications RESULTS No Results PROCEDURES No Known procedures INSTRUCTIONS MEDICATIONS ADMINISTERED No Known Medications MEDICAL (GENERAL) HISTORY Type Description Date Hospitalization History UTI 12/04/2015
--- OUTSIDE RECORDS SUMMARY | 2020-01-12 11:29 | XMS REPORT ---
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 Active 97299050 Problem Depressive disorder, not elsewhere classified 311 Active 80670086 Problem Generalized anxiety disorder 300.02 A ctive 25986757 Problem Major depression F32.9 Active 370 157880 Problem Essential hypertension, benign 401.1 Active 2797072 Problem Generalized anxiety disorder F41.1 A ctive 98806302 Problem Pain in joint, lower leg 719.46 Activ e 162142309 Problem Anxiety state, unspecified 300.00 Act disha 298714155 Problem Other and unspecified hyperlipidemia 272.4 Active 91537920 Problem Major depressive disorder, recurrent episode, moderate 296 .32 Active 26694661 Problem Attention deficit hyperactivity disorder F90.9 Active [id number] ALLERGIES No Information ENCOUNTERS Encounter Location Date Diagnosis [facility] [address] [facility] [id number] [address] [place] [address] Jun, [facility] [address] [facility] [id number] [address] [place] [address] May, Generalized anxiety disorder F41.1 ; Major depression F32.9 and Attention deficit hyperactivity disorder F90.9 [facility] [address] [facility] [id number] [address] [place] [address] Feb, [facility] [address] [facility] [id number] [address] [place] [address] Jan, [facility] [address] [facility] [id number] [address] [place] [address] Dec, [facility] [address] [facility] [id number] [address] [place] [address] Dec, [facility] [address] [id number] [address] [place] [address] Dec, Generalized anxiety disorder F41.1 ; Major depression F32.9 and Attention deficit hyperactivity disorder F90.9 [facility] [address] [id number] [address] [place] [address] Oct, [facility] [address] [id number] [address] [place] [address] Oct, [facility] [address] [facility] [id number] [address] [place] [address] Sep, [facility] [address] [facility] [id number] [address] [place] [address] Sep, [facility] [address] [facility] [id number] [address] [place] [address] Aug, [facility] [address] [facility] [id number] [address] [place] [address] Aug, Generalized anxiety disorder F41.1 ; Major depression F32.9 and Attention deficit hyperactivity disorder F90.9 [facility] [address] [facility] [id number] [address] [place] [address] Aug, [facility] [address] [facility] [id number] [address] [place] [address] Aug, [facility] [address] [facility] [id number] [address] [place] [address] Jun, [facility] [address] [facility] [id number] [address] [place] [address] Jun, [facility] [address] [facility] [id number] [address] [place] [address] Jun, Attention deficit hyperactiv ity disorder F90.9 ; Generalized anxiety disorder F41.1 and Major depression F32.9 [facility] [address] [facility] [id number] [address] [place] [id number] Jun, [facility] [address] [id number] [address] [place] [address] Apr, [facility] [address] [id number] [address] [place] [id number] Mar, [facility] [address] [facility] [id number] [address] [place] [address] Mar, [facility] [address] [id number] [address] [place] [address] Feb, ADD (attention deficit disor nerissa) 314.00 ; Major depressive disorder, recurrent episode, moderate 296.32 and Generalized anxiety disorder 300.02 [facility] [address] [id number] [address] [place] [address] Feb, [facility] [address] [facility] [id number] [address] [place] [address] Feb, [facility] [address] [facility] [id number] [address] [place] [address] Jan, [facility] [address] [id number] [address] [place] [address] Jan, [facility] [address] [facility] [id number] [address] [place] [id number] Jan, [facility] [address] [facility] [id number] [address] [place] [address] Jan, [facility] [address] [facility] [id number] [address] [place] [address] Dec, [facility] [address] [id number] [address] [place] [address] Dec, [facility] [address] [facility] [id number] [address] [place] [address] Dec, [facility] [address] [facility] [id number] [address] [place] [address] November, Attention deficit disorder o f childhood 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 314.00 ; Generalized anxiety disorder 300.02 and Major depressive disorder, recurrent episode, moderate 296.32 [facility] [address] [id number] [address] [place] [address] November, [facility] [address] [id number] [address] [place] [address] November, [facility] [address] [id number] [address] [place] [address] November, Anxiety state 300.00 [facility] [address] [id number] [address] [place] [address] Oct, [facility] [address] [id number] [address] [place] [address] Oct, [facility] [address] [id number] [address] [place] [address] Sep, [facility] [address] [id number] [address] [place] [address] Sep, [facility] [address] [id number] [address] [place] [phone] Sep, [facility] [address] [id number] [address] [place] [id number] Sep, [facility] [address] [facility] [id number] [address] [place] [address] Sep, [facility] [address] [id number] [address] [place] [address] Sep, [facility] [address] [id number] [address] [place] [address] Aug, [facility] [address] [id number] [address] [place] [id number] Aug, [facility] [address] [id number] [address] [place] [phone] Aug, [facility] [address] [id number] [address] [place] [address] Aug, [facility] [address] [id number] [address] [place] [address], [place] [address] Aug, [facility] [address] [id number] [address] [place] [address], [place] [address] Aug, 2014 [facility] [address] [id number] [address] [place] [address], [place] [address] Aug, [facility] [address] [id number] [address] [place] [address], [place] [address] Aug, [facility] [address] [id number] [address] [place] [address], [place] [address] Jul, [facility] [address] [id number] [address] [place] [address], [place] [address] Jul, [facility] [address] [id number] [address] [place] [address], [place] [address] Jul, [facility] [address] [id number] [address] [place] [address], [place] [address] Jul, [facility] [address] [id number] [address] [place] [address], [place] [address] Jul, [facility] [address] [id number] [address] [place] [address], [place] [address] Jul, [facility] [address] [id number] [address] [place] [address], [place] [address] Jun, [facility] [address] [id number] [address] [place] [id number] Jun, [facility] [address] [id number] [address] [place] [address], [place] [address] Jun, [facility] [address] [id number] [address] [place] [address], [place] [address] Jun, [facility] [address] [id number] [address] [place] [address], [place] [address] Jun, [facility] [address] [id number] [address] [place] [address], [place] [address] Jun, [facility] [address] [id number] [address] [place] [address], [place] [address] May, [facility] [address] [id number] [address] [place] [address], [place] [address] May, [facility] [address] [id number] [address] [place] [address], [place] [address] May, [facility] [address] [id number] [address] [place] [address], [place] [address] May, [facility] [address] [id number] [address] [place] [address], [place] [address] May, [facility] [address] [id number] [address] [place] [address], [place] [address] May, [facility] [address] [id number] [address] [place] [address], [place] [address] May, [facility] [address] [id number] [address] [place] [address], [place] [address] May, [facility] [address] [id number] [address] [place] [address], [place] [address] May, [facility] [address] [id number] [address] [place] [address], [place] [address] May, [facility] [address] [id number] [address] [place] [address], [place] [address] Apr, [facility] [address] [id number] [address] [place] [address], [place] [address] Apr, [facility] [address] [id number] [address] [place] [address], [place] [address] Apr, [facility] [address] [id number] [address] [place] [address], [place] [address] Apr, [facility] [address] [id number] [address] [place] [address], [place] [address] Apr, [facility] [address] [id number] [address] [place] [address], [place] [address] Apr, [facility] [address] [id number] [address] [place] [address], [place] [address] Apr, [facility] [address] [id number] [address] [place] [address], [place] [address] Apr, [facility] [address] [id number] [address] [place] [address], [place] [address] Mar, [facility] [address] [id number] [address] [place] [address], [place] [address] 15 Mar, 2014 [facility] [address] [id number] [address] [place] [address], [place] [address] Mar, [facility] [address] [id number] [address] [place] [address], [place] [address] Mar, [facility] [address] [id number] [address] [place] [address], [place] [address] Mar, [facility] [address] [id number] [address] [place] [address], [place] [address] Mar, [facility] [address] [id number] [address] [place] [address], [place] [address] Feb, [facility] [address] [id number] [address] [place] [address], [place] [address] Feb, [facility] [address] [id number] [address] [place] [address], [place] [address] Feb, [facility] [address] [id number] [address] [place] [address], [place] [address] Feb, [facility] [address] [id number] [address] [place] [address], [place] [address] Feb, [facility] [address] [id number] [address] [place] [address], [place] [address] Feb, [facility] [address] [id number] [facility] [place] [address] Jan, [facility] [address] [id number] [address] [place] [address], [place] [address] Jan, [facility] [address] [id number] [facility] [place] [address] Jan, [facility] [address] [id number] [address] [place] [address], [place] [address] Jan, [facility] [address] [id number] [address] [place] [address], [place] [address] Jan, [facility] [address] [id number] [address] [place] [address], [place] [address] Jan, [facility] [address] [id number] [address] [place] [address], [place] [address] Dec, [facility] [address] [id number] [address] [place] [address], [place] [address] Dec, [facility] [address] [id number] [address] [place] [address], [place] [address] Dec, [facility] [address] [id number] [address] [place] [address], [place] [address] Dec, [facility] [address] [id number] [address] [place] [address], [place] [address] Dec, [facility] [address] [id number] [address] [place] [address], [place] [address] November, [facility] [address] [id number] [address] [place] [address], [place] [address] November, [facility] [address] [id number] [address] [place] [address], [place] [address] November, [facility] [address] [id number] [address] [place] [address], [place] [address] November, [facility] [address] [id number] [address] [place] [address], [place] [address] November, [facility] [address] [id number] [address] [place] [address], [place] [address] November, [facility] [address] [id number] [address] [place] [address], [place] [address] November, [facility] [address] [id number] [address] [place] [address], [place] [address] November, [facility] [address] [id number] [address] [place] [address], [place] [address] Oct, [facility] [address] [id number] [address] [place] [address], [place] [address] Oct, [facility] [address] [id number] [address] [place] [address], [place] [address] Oct, [facility] [address] [id number] [address] [place] [address], [place] [address] Oct, [facility] [address] [id number] [address] [place] [address], [place] [address] Oct, [facility] [address] [id number] [address] [place] [address], [place] [address] Oct, [facility] [address] [id number] [address] [place] [address], [place] [address] Sep, [facility] [address] [id number] [address] [place] [address], [place] [address] Sep, [facility] [address] [id number] [address] [place] [address], [place] [address] Sep, [facility] [address] [id number] [address] [place] [address], [place] [address] Sep, [facility] [address] [id number] [address] [place] [address], [place] [address] Sep, [facility] [address] [id number] [address] [place] [address], [place] [address] Sep, [facility] [address] [id number] [address] [place] [address], [place] [address] Aug, [facility] [address] [id number] [address] [place] [address], [place] [address] Aug, [facility] [address] [id number] [address] [place] [address], [place] [address] Jul, [facility] [address] [id number] [address] [place] [address], [place] [address] Jul, [facility] [address] [id number] [address] [place] [address], [place] [address] Jul, [facility] [address] [id number] [address] [place] [address], [place] [address] Jul, [facility] [address] [id number] [address] [place] [address], [place] [address] Jul, [facility] [address] [id number] [address] [place] [address], [place] [address] Jul, [facility] [address] [id number] [address] [place] [address], [place] [address] Jul, [facility] [address] [id number] [address] [place] [address], [place] [address] Jul, [facility] [address] [id number] [address] [place] [address], [place] [address] Jul, [facility] [address] [id number] [address] [place] [address], [place] [address] Jul, [facility] [address] [id number] [address] [place] [address], [place] [address] Jul, [facility] [address] [id number] [address] [place] [address], [place] [address] Jul, [facility] [address] [id number] [address] [place] [address], [place] [address] Jun, [facility] [address] [id number] [address] [place] [address], [place] [address] Jun, [facility] [address] [id number] [address] [place] [address], [place] [address] 20 Jun, 2013 [facility] [address] [id number] [address] [place] [address], [place] [address] 20 Jun, 2013 [facility] [address] [id number] [address] [place] [address], [place] [address] Jun, [facility] [address] [id number] [address] [place] [address], [place] [address] Jun, [facility] [address] [id number] [address] [place] [address], [place] [address] Jun, [facility] [address] [id number] [address] [place] [address], [place] [address] Jun, [facility] [address] [id number] [address] [place] [address], [place] [address] 18 May, 2013 [facility] [address] [id number] [address] [place] [address], [place] [address] 18 May, 2013 [facility] [address] [id number] [address] [place] [address], [place] [address] May, [facility] [address] [id number] [address] [place] [address], [place] [address] May, [facility] [address] [id number] [address] [place] [address], [place] [id number] 10 Apr, 2013 [facility] [address] [id number] [address] [place] [address], [place] [id number] 10 Apr, 2013 [facility] [address] [id number] [address] [place] [address], [place] [id number] 07 Apr, 2013 [facility] [address] [id number] [address] [place] [address], [place] [id number] 10 Mar, 2013 [facility] [address] [id number] [address] [place] [address], [place] [id number] 09 Feb, 2013 [facility] [address] [id number] [address] [place] [address], [place] [id number] Jan, [facility] [address] [facility] [id number] [address] [place] [id number] Jan, [facility] [address] [facility] [id number] [address] [place] [id number] Jan, IMMUNIZATIONS No Known Immunizations SOCIAL HISTORY Never Assessed REASON FOR VISIT PLAN OF CARE VITAL SIGNS MEDICATIONS Unknown Medications RESULTS No Results PROCEDURES No Known procedures INSTRUCTIONS MEDICATIONS ADMINISTERED No Known Medications MEDICAL (GENERAL) HISTORY Type Description Date Hospitalization History UTI 12/04/2015
--- OUTSIDE RECORDS SUMMARY | 2020-01-12 11:29 | XMS REPORT ---
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.00 Active 76273842 Problem Depressive disorder, not elsewhere classified 311 Active 16742068 Problem Generalized anxiety disorder 300.02 A ctive 68350576 Problem Major depression F32.9 Active 370 499119 Problem Essential hypertension, benign 401.1 Active 5881711 Problem Generalized anxiety disorder F41.1 A ctive 93138768 Problem Pain in joint, lower leg 719.46 Activ e 811891566 Problem Anxiety state, unspecified 300.00 Act disha 090006049 Problem Other and unspecified hyperlipidemia 272.4 Active 21970629 Problem Major depressive disorder, recurrent episode, moderate 296 .32 Active 47190732 Problem Attention deficit hyperactivity disorder F90.9 Active [id number] ALLERGIES No Information ENCOUNTERS Encounter Location Date Diagnosis [facility] [address] [facility] [id number] [address] [place] [phone] Jun, [facility] [address] [place] [id number] [address] [place] [phone] May, Generalized anxiety disorder F41.1 ; Major depression F32.9 and Attention deficit hyperactivity disorder F90.9 [facility] [address] [facility] [id number] [address] [place] [phone] Feb, [facility] [address] [facility] [id number] [address] [place] [phone] Jan, [facility] [address] [facility] [id number] [address] [place] [phone] Dec, [facility] [address] [facility] [id number] [address] [place] [phone] Dec, [facility] [address] [facility] [id number] [address] [place] [phone] Dec, Generalized anxiety disorder F41.1 ; Major depression F32.9 and Attention deficit hyperactivity disorder F90.9 [facility] [address] [id number] [address] [place] [phone] Oct, [facility] [address] [facility] [id number] [address] [place] [phone] Oct, [facility] [address] [facility] [id number] [address] [place] [phone] Sep, [facility] [address] [facility] [id number] [address] [place] [phone] Sep, [facility] [address] [facility] [id number] [address] [place] [phone] Aug, [facility] [address] [facility] [id number] [address] [place] [phone] Aug, Generalized anxiety disorder F41.1 ; Major depression F32.9 and Attention deficit hyperactivity disorder F90.9 [facility] [address] [facility] [id number] [address] [place] [phone] Aug, [facility] [address] [facility] [id number] [address] [place] [phone] Aug, [facility] [address] [facility] [id number] [address] [place] [phone] Jun, [facility] [address] [facility] [id number] [address] [place] [phone] Jun, [facility] [address] [facility] [id number] [address] [place] [phone] Jun, Attention deficit hyperactiv ity disorder F90.9 ; Generalized anxiety disorder F41.1 and Major depression F32.9 [facility] [address] [facility] [id number] [address] [place] [phone] Jun, [facility] [address] [id number] [address] [place] [phone] Apr, [facility] [address] [id number] [address] [place] [phone] Mar, [facility] [address] [id number] [address] [place] [phone] Mar, [facility] [address] [id number] [address] [place] [phone] Feb, ADD (attention deficit disor nerissa) 314.00 ; Major depressive disorder, recurrent episode, moderate 296.32 and Generalized anxiety disorder 300.02 [facility] [address] [id number] [address] [place] [phone] Feb, [facility] [address] [id number] [address] [place] [phone] Feb, [facility] [address] [facility] [id number] [address] [place] [phone] Jan, [facility] [address] [id number] [address] [place] [phone] Jan, [facility] [address] [facility] [id number] [address] [place] [phone] Jan, [facility] [address] [facility] [id number] [address] [place] [phone] Jan, [facility] [address] [id number] [address] [place] [phone] Dec, [facility] [address] [id number] [address] [place] [phone] Dec, [facility] [address] [id number] [address] [place] [phone] Dec, [facility] [address] [facility] [id number] [address] [place] [phone] November, Attention deficit disorder o f childhood 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 314.00 ; Generalized anxiety disorder 300.02 and Major depressive disorder, recurrent episode, moderate 296.32 [facility] [address] [id number] [address] [place] [phone] November, [facility] [address] [id number] [address] [place] [phone] November, [facility] [address] [id number] [address] [place] [phone] November, Anxiety state 300.00 [facility] [address] [id number] [address] [place] [phone] Oct, [facility] [address] [id number] [address] [place] [address], [place] [address] Oct, [facility] [address] [id number] [address] [place] [phone] Sep, [facility] [address] [id number] [address] [place] [phone] Sep, [facility] [address] [id number] [address] [place] [phone] Sep, [facility] [address] [id number] [address] [place] [phone] Sep, [facility] [address] [id number] [address] [place] [phone] Sep, [facility] [address] [id number] [address] [place] [phone] Sep, [facility] [address] [id number] [address] [place] [phone] Aug, [facility] [address] [id number] [address] [place] [phone] Aug, [facility] [address] [id number] [address] [place] [phone] Aug, [facility] [address] [id number] [address] [place] [phone] Aug, [facility] [address] [id number] [address] [place] [address], [place] [address] Aug, 2014 [facility] [address] [id number] [address] [place] [address], [place] [address] Aug, 2014 [facility] [address] [id number] [address] [place] [address], [place] [address] Aug, [facility] [address] [id number] [address] [place] [address], [place] [address] Aug, [facility] [address] [id number] [address] [place] [address], [place] [address] Jul, [facility] [address] [id number] [address] [place] [address], [place] [address] Jul, [facility] [address] [id number] [address] [place] [address], [place] [address] Jul, [facility] [address] [id number] [address] [place] [address], [place] [address] Jul, [facility] [address] [id number] [address] [place] [address], [place] [address] Jul, [facility] [address] [id number] [address] [place] [address], [place] [address] Jul, [facility] [address] [id number] [address] [place] [address], [place] [address] Jun, [facility] [address] [id number] [address] [place] [address], [place] [address] Jun, [facility] [address] [id number] [address] [place] [address], [place] [address] Jun, [facility] [address] [id number] [address] [place] [address], [place] [address] Jun, [facility] [address] [id number] [address] [place] [address], [place] [address] Jun, [facility] [address] [id number] [address] [place] [address], [place] [address] Jun, [facility] [address] [id number] [address] [place] [address], [place] [address] May, [facility] [address] [id number] [address] [place] [address], [place] [address] May, [facility] [address] [id number] [address] [place] [address], [place] [address] May, [facility] [address] [id number] [address] [place] [address], [place] [address] May, [facility] [address] [id number] [address] [place] [address], [place] [address] May, [facility] [address] [id number] [address] [place] [address], [place] [address] May, [facility] [address] [id number] [address] [place] [address], [place] [address] May, [facility] [address] [id number] [address] [place] [address], [place] [address] May, [facility] [address] [id number] [address] [place] [address], [place] [address] May, [facility] [address] [id number] [address] [place] [address], [place] [address] May, [facility] [address] [id number] [address] [place] [address], [place] [address] Apr, [facility] [address] [id number] [address] [place] [address], [place] [address] Apr, [facility] [address] [id number] [address] [place] [address], [place] [address] Apr, [facility] [address] [id number] [address] [place] [address], [place] [address] Apr, [facility] [address] [id number] [address] [place] [address], [place] [address] 09 Apr, 2014 [facility] [address] [id number] [address] [place] [address], [place] [address] Apr, [facility] [address] [id number] [address] [place] [address], [place] [address] Apr, [facility] [address] [id number] [address] [place] [address], [place] [address] Apr, [facility] [address] [id number] [address] [place] [address], [place] [address] 15 Mar, 2014 [facility] [address] [id number] [address] [place] [address], [place] [address] 15 Mar, 2014 [facility] [address] [id number] [address] [place] [address], [place] [address] Mar, [facility] [address] [id number] [address] [place] [address], [place] [address] Mar, [facility] [address] [id number] [address] [place] [address], [place] [address] Mar, [facility] [address] [id number] [address] [place] [address], [place] [address] Mar, [facility] [address] [id number] [address] [place] [address], [place] [address] Feb, [facility] [address] [id number] [address] [place] [address], [place] [address] Feb, [facility] [address] [id number] [address] [place] [address], [place] [address] Feb, [facility] [address] [id number] [address] [place] [address], [place] [address] Feb, [facility] [address] [id number] [address] [place] [address], [place] [address] Feb, [facility] [address] [id number] [address] [place] [address], [place] [address] Feb, [facility] [address] [id number] [address] [place] [address], [place] [address] Jan, [facility] [address] [id number] [facility] [place] [address] Jan, [facility] [address] [id number] [facility] [place] [address] Jan, [facility] [address] [id number] [facility] [place] [address] Jan, [facility] [address] [id number] [facility] [place] [address] Jan, [facility] [address] [id number] [facility] [place] [address] Jan, [facility] [address] [id number] [address] [place] [address], [place] [address] Dec, [facility] [address] [id number] [address] [place] [address], [place] [address] Dec, [facility] [address] [id number] [address] [place] [address], [place] [address] Dec, [facility] [address] [id number] [address] [place] [address], [place] [address] Dec, [facility] [address] [id number] [address] [place] [address], [place] [address] Dec, [facility] [address] [id number] [address] [place] [address], [place] [address] November, [facility] [address] [id number] [address] [place] [address], [place] [address] November, [facility] [address] [id number] [address] [place] [address], [place] [address] November, [facility] [address] [id number] [address] [place] [address], [place] [address] November, [facility] [address] [id number] [address] [place] [address], [place] [address] November, [facility] [address] [id number] [address] [place] [address], [place] [address] November, [facility] [address] [id number] [address] [place] [address], [place] [address] November, [facility] [address] [id number] [address] [place] [address], [place] [address] November, [facility] [address] [id number] [address] [place] [address], [place] [address] Oct, [facility] [address] [id number] [address] [place] [address], [place] [address] Oct, [facility] [address] [id number] [address] [place] [address], [place] [address] Oct, [facility] [address] [id number] [address] [place] [address], [place] [address] Oct, [facility] [address] [id number] [address] [place] [address], [place] [address] Oct, [facility] [address] [id number] [address] [place] [address], [place] [address] Oct, [facility] [address] [id number] [address] [place] [address], [place] [address] Sep, [facility] [address] [id number] [address] [place] [address], [place] [address] Sep, [facility] [address] [id number] [address] [place] [address], [place] [address] Sep, [facility] [address] [id number] [address] [place] [address], [place] [address] Sep, [facility] [address] [id number] [address] [place] [address], [place] [address] Sep, [facility] [address] [id number] [address] [place] [address], [place] [address] Sep, [facility] [address] [id number] [address] [place] [address], [place] [address] Aug, [facility] [address] [id number] [address] [place] [address], [place] [address] Aug, [facility] [address] [id number] [address] [place] [address], [place] [address] Jul, [facility] [address] [id number] [address] [place] [address], [place] [address] Jul, [facility] [address] [id number] [address] [place] [address], [place] [address] Jul, [facility] [address] [id number] [address] [place] [address], [place] [address] Jul, [facility] [address] [id number] [address] [place] [address], [place] [address] Jul, [facility] [address] [id number] [address] [place] [address], [place] [address] Jul, [facility] [address] [id number] [address] [place] [address], [place] [address] Jul, [facility] [address] [id number] [address] [place] [address], [place] [address] Jul, [facility] [address] [id number] [address] [place] [address], [place] [address] Jul, [facility] [address] [id number] [address] [place] [address], [place] [address] Jul, [facility] [address] [id number] [address] [place] [address], [place] [address] Jul, [facility] [address] [id number] [address] [place] [address], [place] [address] Jul, [facility] [address] [id number] [address] [place] [address], [place] [address] Jun, [facility] [address] [id number] [address] [place] [address], [place] [address] Jun, [facility] [address] [id number] [address] [place] [address], [place] [address] Jun, [facility] [address] [id number] [address] [place] [address], [place] [address] Jun, [facility] [address] [id number] [address] [place] [address], [place] [address] Jun, [facility] [address] [id number] [address] [place] [address], [place] [phone] Jun, [facility] [address] [id number] [address] [place] [address], [place] [address] Jun, [facility] [address] [id number] [address] [place] [address], [place] [phone] Jun, [facility] [address] [id number] [address] [place] [address], [place] [address] May, [facility] [address] [id number] [address] [place] [address], [place] [address] May, [facility] [address] [id number] [address] [place] [phone] May, [facility] [address] [id number] [address] [place] [address], [place] [address] May, [facility] [address] [id number] [address] [place] [phone] Apr, [facility] [address] [id number] [address] [place] [phone] Apr, [facility] [address] [id number] [address] [place] [phone] 07 Apr, 2013 [facility] [address] [id number] [address] [place] [id number] 10 Mar, 2013 [facility] [address] [id number] [address] [place] [id number] 09 Feb, 2013 [facility] [address] [id number] [address] [place] [phone] 15 Jan, 2013 [facility] [address] [id number] [address] [place] [phone] Jan, [facility] [address] [facility] [id number] [address] [place] [phone] Jan, IMMUNIZATIONS No Known Immunizations SOCIAL HISTORY Never Assessed REASON FOR VISIT PLAN OF CARE VITAL SIGNS MEDICATIONS Unknown Medications RESULTS No Results PROCEDURES No Known procedures INSTRUCTIONS MEDICATIONS ADMINISTERED No Known Medications MEDICAL (GENERAL) HISTORY Type Description Date Hospitalization History UTI 12/04/2015
--- OUTSIDE RECORDS SUMMARY | 2020-01-12 11:29 | XMS REPORT ---
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 Active 92483073 Problem Depressive disorder, not elsewhere classified 311 Active 83397504 Problem Generalized anxiety disorder 300.02 A ctive 05976859 Problem Major depression F32.9 Active 370 331488 Problem Essential hypertension, benign 401.1 Active 6535709 Problem Generalized anxiety disorder F41.1 A ctive 43176357 Problem Pain in joint, lower leg 719.46 Activ e 491962164 Problem Anxiety state, unspecified 300.00 Act disha 099024348 Problem Other and unspecified hyperlipidemia 272.4 Active 39809381 Problem Major depressive disorder, recurrent episode, moderate 296 .32 Active 39638659 Problem Attention deficit hyperactivity disorder F90.9 Active [id number] ALLERGIES No Information ENCOUNTERS Encounter Location Date Diagnosis [facility] [address] [facility] [id number] [address] [place] [address] Jun, [facility] [address] [facility] [id number] [address] [place] [address] May, Generalized anxiety disorder F41.1 ; Major depression F32.9 and Attention deficit hyperactivity disorder F90.9 [facility] [address] [facility] [id number] [address] [place] [address] Feb, [facility] [address] [facility] [id number] [address] [place] [address] Jan, [facility] [address] [facility] [id number] [address] [place] [address] Dec, [facility] [address] [place] [id number] [address] [place] [address] Dec, [facility] [address] [facility] [id number] [address] [place] [address] Dec, Generalized anxiety disorder F41.1 ; Major depression F32.9 and Attention deficit hyperactivity disorder F90.9 [facility] [address] [id number] [address] [place] [address] Oct, [facility] [address] [facility] [id number] [address] [place] [address] Oct, [facility] [address] [facility] [id number] [address] [place] [address] Sep, [facility] [address] [facility] [id number] [address] [place] [address] Sep, [facility] [address] [facility] [id number] [address] [place] [address] Aug, [facility] [address] [facility] [id number] [address] [place] [address] Aug, Generalized anxiety disorder F41.1 ; Major depression F32.9 and Attention deficit hyperactivity disorder F90.9 [facility] [address] [facility] [id number] [address] [place] [address] Aug, [facility] [address] [facility] [id number] [address] [place] [address] Aug, [facility] [address] [facility] [id number] [address] [place] [address] Jun, [facility] [address] [facility] [id number] [address] [place] [phone] Jun, [facility] [address] [facility] [id number] [address] [place] [address] Jun, Attention deficit hyperactiv ity disorder F90.9 ; Generalized anxiety disorder F41.1 and Major depression F32.9 [facility] [address] [facility] [id number] [address] [place] [address] Jun, [facility] [address] [id number] [address] [place] [address] Apr, [facility] [address] [facility] [id number] [address] [place] [address] Mar, [facility] [address] [facility] [id number] [address] [place] [address] Mar, [facility] [address] [id number] [address] [place] [address] Feb, ADD (attention deficit disor nerissa) 314.00 ; Major depressive disorder, recurrent episode, moderate 296.32 and Generalized anxiety disorder 300.02 [facility] [address] [id number] [address] [place] [address] Feb, [facility] [address] [facility] [id number] [address] [place] [address] Feb, [facility] [address] [facility] [id number] [address] [place] [address] Jan, [facility] [address] [facility] [id number] [address] [place] [address] Jan, [facility] [address] [facility] [id number] [address] [place] [address] Jan, [facility] [address] [facility] [id number] [address] [place] [address] Jan, [facility] [address] [facility] [id number] [address] [place] [address] Dec, [facility] [address] [id number] [address] [place] [address] Dec, [facility] [address] [facility] [id number] [address] [place] [address] Dec, [facility] [address] [facility] [id number] [address] [place] [address] November, Attention deficit disorder o f childhood 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 314.00 ; Generalized anxiety disorder 300.02 and Major depressive disorder, recurrent episode, moderate 296.32 [facility] [address] [id number] [address] [place] [address] November, [facility] [address] [id number] [address] [place] [address] November, [facility] [address] [id number] [address] [place] [address] November, Anxiety state 300.00 [facility] [address] [id number] [address] [place] [address] Oct, [facility] [address] [id number] [address] [place] [address] Oct, [facility] [address] [facility] [id number] [address] [place] [address] Sep, [facility] [address] [id number] [address] [place] [phone] Sep, [facility] [address] [id number] [address] [place] [address] Sep, [facility] [address] [facility] [id number] [address] [place] [address] Sep, [facility] [address] [facility] [id number] [address] [place] [address] Sep, [facility] [address] [id number] [address] [place] [address] Sep, [facility] [address] [id number] [address] [place] [phone] Aug, [facility] [address] [id number] [address] [place] [address] Aug, [facility] [address] [facility] [id number] [address] [place] [phone] Aug, [facility] [address] [facility] [id number] [address] [place] [address] Aug, [address] [facility] [address] [id number] [address] [place] [address], [place] [address] Aug, 2014 [facility] [address] [id number] [address] [place] [address], [place] [address] Aug, 2014 [facility] [address] [id number] [address] [place] [address], [place] [address] Aug, [facility] [address] [id number] [address] [place] [address], [place] [address] Aug, [facility] [address] [id number] [address] [place] [address], [place] [address] Jul, [facility] [address] [id number] [address] [place] [address], [place] [address] Jul, [facility] [address] [id number] [address] [place] [address], [place] [address] Jul, [facility] [address] [id number] [address] [place] [address], [place] [address] Jul, [facility] [address] [id number] [address] [place] [address], [place] [address] Jul, [facility] [address] [id number] [address] [place] [address], [place] [address] Jul, [facility] [address] [id number] [address] [place] [address], [place] [address] Jun, [facility] [address] [id number] [address] [place] [address], [place] [address] Jun, [facility] [address] [id number] [address] [place] [address], [place] [address] Jun, [facility] [address] [id number] [address] [place] [address], [place] [address] Jun, [facility] [address] [id number] [address] [place] [address], [place] [address] Jun, [facility] [address] [id number] [address] [place] [address], [place] [address] Jun, [facility] [address] [id number] [address] [place] [address], [place] [address] May, [facility] [address] [id number] [address] [place] [address], [place] [address] May, [facility] [address] [id number] [address] [place] [address], [place] [address] May, [facility] [address] [id number] [address] [place] [address], [place] [address] May, [facility] [address] [id number] [address] [place] [address], [place] [address] May, [facility] [address] [id number] [address] [place] [address], [place] [address] May, [facility] [address] [id number] [address] [place] [address], [place] [address] May, [facility] [address] [id number] [address] [place] [address], [place] [address] May, [facility] [address] [id number] [address] [place] [address], [place] [address] May, [facility] [address] [id number] [address] [place] [address], [place] [address] May, [facility] [address] [id number] [address] [place] [address], [place] [address] Apr, [facility] [address] [id number] [address] [place] [address], [place] [address] Apr, [facility] [address] [id number] [address] [place] [address], [place] [address] Apr, [facility] [address] [id number] [address] [place] [address], [place] [address] Apr, [facility] [address] [id number] [address] [place] [address], [place] [address] Apr, [facility] [address] [id number] [address] [place] [address], [place] [address] Apr, [facility] [address] [id number] [address] [place] [address], [place] [address] Apr, [facility] [address] [id number] [address] [place] [address], [place] [address] Apr, [facility] [address] [id number] [address] [place] [address], [place] [address] Mar, [facility] [address] [id number] [address] [place] [address], [place] [address] 15 Mar, 2014 [facility] [address] [id number] [address] [place] [address], [place] [address] Mar, [facility] [address] [id number] [address] [place] [address], [place] [address] Mar, [facility] [address] [id number] [address] [place] [address], [place] [address] Mar, [facility] [address] [id number] [address] [place] [address], [place] [address] Mar, [facility] [address] [id number] [address] [place] [address], [place] [address] Feb, [facility] [address] [id number] [address] [place] [address], [place] [address] Feb, [facility] [address] [id number] [address] [place] [address], [place] [address] Feb, [facility] [address] [id number] [address] [place] [address], [place] [address] Feb, [facility] [address] [id number] [address] [place] [address], [place] [address] Feb, [facility] [address] [id number] [address] [place] [address], [place] [address] Feb, [facility] [address] [id number] [facility] [place] [address] Jan, [facility] [address] [id number] [facility] [place] [place] [address] Jan, [facility] [address] [id number] [facility] [address] Jan, [facility] [address] [id number] [facility] [place] [address] Jan, [facility] [address] [id number] [facility] [place] [address] Jan, [facility] [address] [id number] [address] [place] [address], [place] [address] Jan, [facility] [address] [id number] [address] [place] [address], [place] [address] Dec, [facility] [address] [id number] [address] [place] [address], [place] [address] Dec, [facility] [address] [id number] [address] [place] [address], [place] [address] Dec, [facility] [address] [id number] [address] [place] [address], [place] [address] Dec, [facility] [address] [id number] [address] [place] [address], [place] [address] Dec, [facility] [address] [id number] [address] [place] [address], [place] [address] November, [facility] [address] [id number] [address] [place] [address], [place] [address] November, [facility] [address] [id number] [address] [place] [address], [place] [address] November, [facility] [address] [id number] [address] [place] [address], [place] [address] November, [facility] [address] [id number] [address] [place] [address], [place] [address] November, [facility] [address] [id number] [address] [place] [address], [place] [address] November, [facility] [address] [id number] [address] [place] [address], [place] [address] November, [facility] [address] [id number] [address] [place] [address], [place] [address] November, [facility] [address] [id number] [address] [place] [address], [place] [address] Oct, [facility] [address] [id number] [address] [place] [address], [place] [address] Oct, [facility] [address] [id number] [address] [place] [address], [place] [address] Oct, [facility] [address] [id number] [address] [place] [address], [place] [address] Oct, [facility] [address] [id number] [address] [place] [address], [place] [address] Oct, [facility] [address] [id number] [address] [place] [address], [place] [address] Oct, [facility] [address] [id number] [address] [place] [address], [place] [address] Sep, [facility] [address] [id number] [address] [place] [address], [place] [address] Sep, [facility] [address] [id number] [address] [place] [address], [place] [address] Sep, [facility] [address] [id number] [address] [place] [address], [place] [address] Sep, [facility] [address] [id number] [address] [place] [address], [place] [address] Sep, [facility] [address] [id number] [address] [place] [address], [place] [address] Sep, [facility] [address] [id number] [address] [place] [address], [place] [address] 03 Aug, [address] [facility] [address] [id number] [address] [place] [address], [place] [address] Aug, [facility] [address] [id number] [address] [place] [address], [place] [address] Jul, [facility] [address] [id number] [address] [place] [address], [place] [address] Jul, [facility] [address] [id number] [address] [place] [address], [place] [address] Jul, [facility] [address] [id number] [address] [place] [address], [place] [address] Jul, [facility] [address] [id number] [address] [place] [address], [place] [address] Jul, [facility] [address] [id number] [address] [place] [address], [place] [address] Jul, [facility] [address] [id number] [address] [place] [address], [place] [address] Jul, [facility] [address] [id number] [address] [place] [address], [place] [address] Jul, [facility] [address] [id number] [address] [place] [address], [place] [address] Jul, [facility] [address] [id number] [address] [place] [address], [place] [address] Jul, [facility] [address] [id number] [address] [place] [address], [place] [address] Jul, [facility] [address] [id number] [address] [place] [address], [place] [address] Jul, [facility] [address] [id number] [address] [place] [address], [place] [address] Jun, [facility] [address] [id number] [address] [place] [address], [place] [address] Jun, [facility] [address] [id number] [address] [place] [address], [place] [address] Jun, [facility] [address] [id number] [address] [place] [address], [place] [address] Jun, [facility] [address] [id number] [address] [place] [address], [place] [address] Jun, [facility] [address] [id number] [address] [place] [address], [place] [address] Jun, [facility] [address] [id number] [address] [place] [address], [place] [address] Jun, [facility] [address] [id number] [address] [place] [address], [place] [address] Jun, [facility] [address] [id number] [address] [place] [address], [place] [address] May, [facility] [address] [id number] [address] [place] [address], [place] [address] May, [facility] [address] [id number] [address] [place] [address], [place] [address] May, [facility] [address] [id number] [address] [place] [address], [place] [address] May, [facility] [address] [id number] [address] [place] [address], [place] [address] Apr, [facility] [address] [id number] [address] [place] [address], [place] [address] Apr, [facility] [address] [id number] [address] [place] [address], [place] [address] Apr, [facility] [address] [id number] [address] [place] [address], [place] [address] Mar, [facility] [address] [id number] [address] [place] [address], [place] [address] Feb, [facility] [address] [id number] [address] [place] [address], [place] [address] Jan, [facility] [address] [facility] [id number] [address] [address] Jan, [facility] [address] [facility] [id number] [address] [address] Jan, IMMUNIZATIONS No Known Immunizations SOCIAL HISTORY Never Assessed REASON FOR VISIT PLAN OF CARE VITAL SIGNS MEDICATIONS Unknown Medications RESULTS No Results PROCEDURES No Known procedures INSTRUCTIONS MEDICATIONS ADMINISTERED No Known Medications MEDICAL (GENERAL) HISTORY Type Description Date Hospitalization History UTI 12/04/2015
--- OUTSIDE RECORDS SUMMARY | 2020-01-12 11:29 | XMS REPORT ---
Author Author Cj PADILLA [facility] Address [address] [place] [address] Care Team Providers Care Metal Burnisher Name Role Phone JUAN JOSÉ PADILLA Unavailable PROBLEMS ALLERGIES No Information ENCOUNTERS IMMUNIZATIONS No Known Immunizations SOCIAL HISTORY No smoking Hx information available REASON FOR VISIT PLAN OF CARE VITAL SIGNS MEDICATIONS Unknown Medications RESULTS No Results PROCEDURES No Known procedures INSTRUCTIONS MEDICATIONS ADMINISTERED No Known Medications MEDICAL (GENERAL) HISTORY
--- OUTSIDE RECORDS SUMMARY | 2020-01-12 11:29 | XMS REPORT ---
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 Active 75842500 Problem Depressive disorder, not elsewhere classified 311 Active 27008353 Problem Generalized anxiety disorder 300.02 A ctive 73749712 Problem Major depression F32.9 Active 370 627330 Problem Essential hypertension, benign 401.1 Active 5487254 Problem Generalized anxiety disorder F41.1 A ctive 92351788 Problem Pain in joint, lower leg 719.46 Activ e 222225269 Problem Anxiety state, unspecified 300.00 Act disha 455368269 Problem Other and unspecified hyperlipidemia 272.4 Active 77099591 Problem Major depressive disorder, recurrent episode, moderate 296 .32 Active 47710726 Problem Attention deficit hyperactivity disorder F90.9 Active [id number] ALLERGIES No Information ENCOUNTERS Encounter Location Date Diagnosis [facility] [address] [facility] [id number] [address] [place] [phone] Jun, [facility] [address] [facility] [id number] [address] [place] [address] May, Generalized anxiety disorder F41.1 ; Major depression F32.9 and Attention deficit hyperactivity disorder F90.9 [facility] [address] [facility] [id number] [address] [place] [address] Feb, [facility] [address] [facility] [id number] [address] [place] [address] Jan, [facility] [address] [facility] [id number] [address] [place] [address] Dec, [facility] [address] [facility] [id number] [address] [place] [address] Dec, [facility] [address] [id number] [address] [place] [address] Dec, Generalized anxiety disorder F41.1 ; Major depression F32.9 and Attention deficit hyperactivity disorder F90.9 [facility] [address] [id number] [address] [place] [address] Oct, [facility] [address] [id number] [address] [place] [address] Oct, [facility] [address] [facility] [id number] [address] [place] [address] Sep, [facility] [address] [facility] [id number] [address] [place] [address] Sep, [facility] [address] [facility] [id number] [address] [place] [address] Aug, [facility] [address] [facility] [id number] [address] [place] [address] Aug, Generalized anxiety disorder F41.1 ; Major depression F32.9 and Attention deficit hyperactivity disorder F90.9 [facility] [address] [facility] [id number] [address] [place] [address] Aug, [facility] [address] [facility] [id number] [address] [place] [address] Aug, [facility] [address] [facility] [id number] [address] [place] [address] Jun, [facility] [address] [facility] [id number] [address] [place] [address] Jun, [facility] [address] [facility] [id number] [address] [place] [address] Jun, Attention deficit hyperactiv ity disorder F90.9 ; Generalized anxiety disorder F41.1 and Major depression F32.9 [facility] [address] [facility] [id number] [address] [place] [address] Jun, [facility] [address] [id number] [address] [place] [address] Apr, [facility] [address] [id number] [address] [place] [address] Mar, [facility] [address] [facility] [id number] [address] [place] [address] Mar, [facility] [address] [id number] [address] [place] [address] Feb, ADD (attention deficit disor nerissa) 314.00 ; Major depressive disorder, recurrent episode, moderate 296.32 and Generalized anxiety disorder 300.02 [facility] [address] [id number] [address] [place] [id number] Feb, [facility] [address] [facility] [id number] [address] [place] [address] Feb, [facility] [address] [facility] [id number] [address] [place] [address] Jan, [facility] [address] [id number] [address] [place] [address] Jan, [facility] [address] [facility] [id number] [address] [place] [id number] Jan, [facility] [address] [facility] [id number] [address] [place] [address] Jan, [facility] [address] [facility] [id number] [address] [place] [address] Dec, [facility] [address] [id number] [address] [place] [address] Dec, [facility] [address] [facility] [id number] [address] [place] [address] Dec, [facility] [address] [facility] [id number] [address] [place] [address] November, Attention deficit disorder o f childhood 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 314.00 ; Generalized anxiety disorder 300.02 and Major depressive disorder, recurrent episode, moderate 296.32 [facility] [address] [id number] [address] [place] [address] November, [facility] [address] [id number] [address] [place] [address] November, [facility] [address] [id number] [address] [place] [address] November, Anxiety state 300.00 [facility] [address] [id number] [address] [place] [address] Oct, [facility] [address] [id number] [address] [place] [address] Oct, [facility] [address] [id number] [address] [place] [address] Sep, [facility] [address] [id number] [address] [place] [address] Sep, [facility] [address] [id number] [address] [place] [address] Sep, [facility] [address] [id number] [address] [place] [address] Sep, [facility] [address] [facility] [id number] [address] [place] [id number] Sep, [facility] [address] [id number] [address] [place] [address] Sep, [facility] [address] [id number] [address] [place] [address] Aug, [facility] [address] [id number] [address] [place] [id number] Aug, [facility] [address] [id number] [address] [place] [id number] Aug, [facility] [address] [id number] [address] [place] [address] Aug, [facility] [address] [id number] [address] [place] [address], [place] [address] Aug, [facility] [address] [id number] [address] [place] [address], [place] [address] Aug, 2014 [facility] [address] [id number] [address] [place] [address], [place] [address] Aug, [facility] [address] [id number] [address] [place] [address], [place] [address] Aug, [facility] [address] [id number] [address] [place] [address], [place] [address] Jul, [facility] [address] [id number] [address] [place] [address], [place] [address] Jul, [facility] [address] [id number] [address] [place] [address], [place] [address] Jul, [facility] [address] [id number] [address] [place] [address], [place] [address] Jul, [facility] [address] [id number] [address] [place] [address], [place] [address] Jul, [facility] [address] [id number] [address] [place] [address], [place] [address] Jul, [facility] [address] [id number] [address] [place] [address], [place] [address] Jun, [facility] [address] [id number] [address] [place] [address] Jun, [facility] [address] [id number] [address] [place] [address], [place] [address] Jun, [facility] [address] [id number] [address] [place] [address], [place] [address] Jun, [facility] [address] [id number] [address] [place] [address], [place] [address] Jun, [facility] [address] [id number] [address] [place] [address], [place] [address] Jun, [facility] [address] [id number] [address] [place] [address], [place] [address] May, [facility] [address] [id number] [address] [place] [address], [place] [address] May, [facility] [address] [id number] [address] [place] [address], [place] [address] May, [facility] [address] [id number] [address] [place] [address], [place] [address] May, [facility] [address] [id number] [address] [place] [address], [place] [address] May, [facility] [address] [id number] [address] [place] [address], [place] [address] May, [facility] [address] [id number] [address] [place] [address], [place] [address] May, [facility] [address] [id number] [address] [place] [address], [place] [address] May, [facility] [address] [id number] [address] [place] [address], [place] [address] May, [facility] [address] [id number] [address] [place] [address], [place] [address] May, [facility] [address] [id number] [address] [place] [address], [place] [address] Apr, [facility] [address] [id number] [address] [place] [address], [place] [address] Apr, [facility] [address] [id number] [address] [place] [address], [place] [address] Apr, [facility] [address] [id number] [address] [place] [address], [place] [address] Apr, [facility] [address] [id number] [address] [place] [address], [place] [address] Apr, [facility] [address] [id number] [address] [place] [address], [place] [address] Apr, [facility] [address] [id number] [address] [place] [address], [place] [address] Apr, [facility] [address] [id number] [address] [place] [address], [place] [address] Apr, [facility] [address] [id number] [address] [place] [address], [place] [address] Mar, [facility] [address] [id number] [address] [place] [address], [place] [address] 15 Mar, 2014 [facility] [address] [id number] [address] [place] [address], [place] [address] Mar, [facility] [address] [id number] [address] [place] [address], [place] [address] Mar, [facility] [address] [id number] [address] [place] [address], [place] [address] Mar, [facility] [address] [id number] [address] [place] [address], [place] [address] Mar, [facility] [address] [id number] [address] [place] [address], [place] [address] Feb, [facility] [address] [id number] [address] [place] [address], [place] [address] Feb, [facility] [address] [id number] [address] [place] [address], [place] [address] Feb, [facility] [address] [id number] [address] [place] [address], [place] [address] Feb, [facility] [address] [id number] [address] [place] [address], [place] [address] Feb, [facility] [address] [id number] [address] [place] [address], [place] [address] Feb, [facility] [address] [id number] [facility] [place] [address] Jan, [facility] [address] [id number] [address] [place] [address], [place] [address] Jan, [facility] [address] [id number] [facility] [place] [address] Jan, [facility] [address] [id number] [address] [place] [address], [place] [address] Jan, [facility] [address] [id number] [address] [place] [address], [place] [address] Jan, [facility] [address] [id number] [address] [place] [address], [place] [address] Jan, [facility] [address] [id number] [address] [place] [address], [place] [address] Dec, [facility] [address] [id number] [address] [place] [address], [place] [address] Dec, [facility] [address] [id number] [address] [place] [address], [place] [address] Dec, [facility] [address] [id number] [address] [place] [address], [place] [address] Dec, [facility] [address] [id number] [address] [place] [address], [place] [address] Dec, [facility] [address] [id number] [address] [place] [address], [place] [address] November, [facility] [address] [id number] [address] [place] [address], [place] [address] November, [facility] [address] [id number] [address] [place] [address], [place] [address] November, [facility] [address] [id number] [address] [place] [address], [place] [address] November, [facility] [address] [id number] [address] [place] [address], [place] [address] November, [facility] [address] [id number] [address] [place] [address], [place] [address] November, [facility] [address] [id number] [address] [place] [address], [place] [address] November, [facility] [address] [id number] [address] [place] [address], [place] [address] November, [facility] [address] [id number] [address] [place] [address], [place] [address] Oct, [facility] [address] [id number] [address] [place] [address], [place] [address] Oct, [facility] [address] [id number] [address] [place] [address], [place] [address] Oct, [facility] [address] [id number] [address] [place] [address], [place] [address] Oct, [facility] [address] [id number] [address] [place] [address], [place] [address] Oct, [facility] [address] [id number] [address] [place] [address], [place] [address] Oct, [facility] [address] [id number] [address] [place] [address], [place] [address] Sep, [facility] [address] [id number] [address] [place] [address], [place] [address] Sep, [facility] [address] [id number] [address] [place] [address], [place] [address] Sep, [facility] [address] [id number] [address] [place] [address], [place] [address] Sep, [facility] [address] [id number] [address] [place] [address], [place] [address] Sep, [facility] [address] [id number] [address] [place] [address], [place] [address] Sep, [facility] [address] [id number] [address] [place] [address], [place] [address] Aug, [facility] [address] [id number] [address] [place] [address], [place] [address] Aug, [facility] [address] [id number] [address] [place] [address], [place] [address] Jul, [facility] [address] [id number] [address] [place] [address], [place] [address] Jul, [facility] [address] [id number] [address] [place] [address], [place] [address] Jul, [facility] [address] [id number] [address] [place] [address], [place] [address] Jul, [facility] [address] [id number] [address] [place] [address], [place] [address] Jul, [facility] [address] [id number] [address] [place] [address], [place] [address] Jul, [facility] [address] [id number] [address] [place] [address], [place] [address] Jul, [facility] [address] [id number] [address] [place] [address], [place] [address] Jul, [facility] [address] [id number] [address] [place] [address], [place] [address] Jul, [facility] [address] [id number] [address] [place] [address], [place] [address] Jul, [facility] [address] [id number] [address] [place] [address], [place] [address] Jul, [facility] [address] [id number] [address] [place] [address], [place] [address] Jul, [facility] [address] [id number] [address] [place] [address], [place] [address] Jun, [facility] [address] [id number] [address] [place] [address], [place] [address] Jun, [facility] [address] [id number] [address] [place] [address], [place] [address] 20 Jun, 2013 [facility] [address] [id number] [address] [place] [address], [place] [address] 20 Jun, 2013 [facility] [address] [id number] [address] [place] [address], [place] [address] Jun, [facility] [address] [id number] [address] [place] [address], [place] [address] Jun, [facility] [address] [id number] [address] [place] [address], [place] [address] Jun, [facility] [address] [id number] [address] [place] [address], [place] [address] Jun, [facility] [address] [id number] [address] [place] [address], [place] [address] 18 May, 2013 [facility] [address] [id number] [address] [place] [address], [place] [id number] 18 May, 2013 [facility] [address] [id number] [address] [place] [address], [place] [address] May, [facility] [address] [id number] [address] [place] [address], [place] [address] May, [facility] [address] [id number] [address] [place] [address], [place] [id number] 10 Apr, 2013 [facility] [address] [id number] [address] [place] [address], [place] [phone] 10 Apr, 2013 [facility] [address] [id number] [address] [place] [address], [place] [id number] 07 Apr, 2013 [facility] [address] [id number] [address] [place] [address], [place] [address] 10 Mar, 2013 [facility] [address] [id number] [address] [place] [address], [place] [id number] 09 Feb, 2013 [facility] [address] [id number] [address] [place] [address], [place] [address] Jan, [facility] [address] [facility] [id number] [address] [place] [id number] Jan, [facility] [address] [facility] [id number] [address] [place] [id number] Jan, IMMUNIZATIONS No Known Immunizations SOCIAL HISTORY Never Assessed REASON FOR VISIT PLAN OF CARE VITAL SIGNS MEDICATIONS Unknown Medications RESULTS No Results PROCEDURES No Known procedures INSTRUCTIONS MEDICATIONS ADMINISTERED No Known Medications MEDICAL (GENERAL) HISTORY Type Description Date Hospitalization History UTI 12/04/2015
--- OUTSIDE RECORDS SUMMARY | 2020-01-12 11:30 | XMS REPORT ---
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 Active 53563646 Problem Depressive disorder, not elsewhere classified 311 Active 48975870 Problem Generalized anxiety disorder 300.02 A ctive 19908408 Problem Major depression F32.9 Active 370 501325 Problem Essential hypertension, benign 401.1 Active 6170461 Problem Generalized anxiety disorder F41.1 A ctive 90555206 Problem Pain in joint, lower leg 719.46 Activ e 281016883 Problem Anxiety state, unspecified 300.00 Act disha 826592949 Problem Other and unspecified hyperlipidemia 272.4 Active 86779782 Problem Major depressive disorder, recurrent episode, moderate 296 .32 Active 09055687 Problem Attention deficit hyperactivity disorder F90.9 Active [id number] ALLERGIES No Information ENCOUNTERS Encounter Location Date Diagnosis [facility] [address] [facility] [id number] [address] [place] [address] Jun, [facility] [address] [facility] [id number] [address] [place] [address] May, Generalized anxiety disorder F41.1 ; Major depression F32.9 and Attention deficit hyperactivity disorder F90.9 [facility] [address] [facility] [id number] [address] [place] [address] Feb, [facility] [address] [facility] [id number] [address] [place] [address] Jan, [facility] [address] [facility] [id number] [address] [place] [address] Dec, [facility] [address] [facility] [id number] [address] [place] [address] Dec, [facility] [address] [id number] [address] [place] [address] Dec, Generalized anxiety disorder F41.1 ; Major depression F32.9 and Attention deficit hyperactivity disorder F90.9 [facility] [address] [id number] [address] [place] [address] Oct, [facility] [address] [id number] [address] [place] [address] Oct, [facility] [address] [facility] [id number] [address] [place] [address] Sep, [facility] [address] [facility] [id number] [address] [place] [address] Sep, [facility] [address] [facility] [id number] [address] [place] [address] Aug, [facility] [address] [facility] [id number] [address] [place] [address] Aug, Generalized anxiety disorder F41.1 ; Major depression F32.9 and Attention deficit hyperactivity disorder F90.9 [facility] [address] [facility] [id number] [address] [place] [address] Aug, [facility] [address] [facility] [id number] [address] [place] [address] Aug, [facility] [address] [facility] [id number] [address] [place] [address] Jun, [facility] [address] [facility] [id number] [address] [place] [address] Jun, [facility] [address] [facility] [id number] [address] [place] [address] Jun, Attention deficit hyperactiv ity disorder F90.9 ; Generalized anxiety disorder F41.1 and Major depression F32.9 [facility] [address] [facility] [id number] [address] [place] [address] Jun, [facility] [address] [id number] [address] [place] [address] Apr, [facility] [address] [id number] [address] [place] [address] Mar, [facility] [address] [facility] [id number] [address] [place] [address] Mar, [facility] [address] [id number] [address] [place] [address] Feb, ADD (attention deficit disor nerissa) 314.00 ; Major depressive disorder, recurrent episode, moderate 296.32 and Generalized anxiety disorder 300.02 [facility] [address] [id number] [address] [place] [address] Feb, [facility] [address] [facility] [id number] [address] [place] [address] Feb, [facility] [address] [facility] [id number] [address] [place] [address] Jan, [facility] [address] [id number] [address] [place] [address] Jan, [facility] [address] [facility] [id number] [address] [place] [address] Jan, [facility] [address] [facility] [id number] [address] [place] [address] Jan, [facility] [address] [facility] [id number] [address] [place] [address] Dec, [facility] [address] [id number] [address] [place] [address] Dec, [facility] [address] [facility] [id number] [address] [place] [address] Dec, [facility] [address] [facility] [id number] [address] [place] [address] November, Attention deficit disorder o f childhood 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 314.00 ; Generalized anxiety disorder 300.02 and Major depressive disorder, recurrent episode, moderate 296.32 [facility] [address] [id number] [address] [place] [address] November, [facility] [address] [id number] [address] [place] [address] November, [facility] [address] [id number] [address] [place] [address] November, Anxiety state 300.00 [facility] [address] [id number] [address] [place] [address] Oct, [facility] [address] [id number] [address] [place] [address] Oct, [facility] [address] [id number] [address] [place] [address] Sep, [facility] [address] [id number] [address] [place] [address] Sep, [facility] [address] [id number] [address] [place] [address] Sep, [facility] [address] [id number] [address] [place] [address] Sep, [facility] [address] [facility] [id number] [address] [place] [address] Sep, [facility] [address] [id number] [address] [place] [address] Sep, [facility] [address] [id number] [address] [place] [address] Aug, [facility] [address] [id number] [address] [place] [address] Aug, [facility] [address] [id number] [address] [place] [address] Aug, [facility] [address] [id number] [address] [place] [address] Aug, [facility] [address] [id number] [address] [place] [address], [place] [address] Aug, [facility] [address] [id number] [address] [place] [address], [place] [address] Aug, 2014 [facility] [address] [id number] [address] [place] [address], [place] [address] Aug, [facility] [address] [id number] [address] [place] [address], [place] [address] Aug, [facility] [address] [id number] [address] [place] [address], [place] [address] Jul, [facility] [address] [id number] [address] [place] [address], [place] [address] Jul, [facility] [address] [id number] [address] [place] [address], [place] [address] Jul, [facility] [address] [id number] [address] [place] [address], [place] [address] Jul, [facility] [address] [id number] [address] [place] [address], [place] [address] Jul, [facility] [address] [id number] [address] [place] [address], [place] [address] Jul, [facility] [address] [id number] [address] [place] [address], [place] [address] Jun, [facility] [address] [id number] [address] [place] [address] Jun, [facility] [address] [id number] [address] [place] [address], [place] [address] Jun, [facility] [address] [id number] [address] [place] [address], [place] [address] Jun, [facility] [address] [id number] [address] [place] [address], [place] [address] Jun, [facility] [address] [id number] [address] [place] [address], [place] [address] Jun, [facility] [address] [id number] [address] [place] [address], [place] [address] May, [facility] [address] [id number] [address] [place] [address], [place] [address] May, [facility] [address] [id number] [address] [place] [address], [place] [address] May, [facility] [address] [id number] [address] [place] [address], [place] [address] May, [facility] [address] [id number] [address] [place] [address], [place] [address] May, [facility] [address] [id number] [address] [place] [address], [place] [address] May, [facility] [address] [id number] [address] [place] [address], [place] [address] May, [facility] [address] [id number] [address] [place] [address], [place] [address] May, [facility] [address] [id number] [address] [place] [address], [place] [address] May, [facility] [address] [id number] [address] [place] [address], [place] [address] May, [facility] [address] [id number] [address] [place] [address], [place] [address] Apr, [facility] [address] [id number] [address] [place] [address], [place] [address] Apr, [facility] [address] [id number] [address] [place] [address], [place] [address] Apr, [facility] [address] [id number] [address] [place] [address], [place] [address] Apr, [facility] [address] [id number] [address] [place] [address], [place] [address] Apr, [facility] [address] [id number] [address] [place] [address], [place] [address] Apr, [facility] [address] [id number] [address] [place] [address], [place] [address] Apr, [facility] [address] [id number] [address] [place] [address], [place] [address] Apr, [facility] [address] [id number] [address] [place] [address], [place] [address] Mar, [facility] [address] [id number] [address] [place] [address], [place] [address] 15 Mar, 2014 [facility] [address] [id number] [address] [place] [address], [place] [address] Mar, [facility] [address] [id number] [address] [place] [address], [place] [address] Mar, [facility] [address] [id number] [address] [place] [address], [place] [address] Mar, [facility] [address] [id number] [address] [place] [address], [place] [address] Mar, [facility] [address] [id number] [address] [place] [address], [place] [address] Feb, [facility] [address] [id number] [address] [place] [address], [place] [address] Feb, [facility] [address] [id number] [address] [place] [address], [place] [address] Feb, [facility] [address] [id number] [address] [place] [address], [place] [address] Feb, [facility] [address] [id number] [address] [place] [address], [place] [address] Feb, [facility] [address] [id number] [address] [place] [address], [place] [address] Feb, [facility] [address] [id number] [address] [place] [address] Jan, [facility] [address] [id number] [address] [place] [address], [place] [address] Jan, [facility] [address] [id number] [address] [address] Jan, [facility] [address] [id number] [address] [place] [address], [place] [address] Jan, [facility] [address] [id number] [address] [place] [address], [place] [address] Jan, [facility] [address] [id number] [address] [place] [address], [place] [address] Jan, [facility] [address] [id number] [address] [place] [address], [place] [address] Dec, [facility] [address] [id number] [address] [place] [address], [place] [address] Dec, [facility] [address] [id number] [address] [place] [address], [place] [address] Dec, [facility] [address] [id number] [address] [place] [address], [place] [address] Dec, [facility] [address] [id number] [address] [place] [address], [place] [address] Dec, [facility] [address] [id number] [address] [place] [address], [place] [address] November, [facility] [address] [id number] [address] [place] [address], [place] [address] November, [facility] [address] [id number] [address] [place] [address], [place] [address] November, [facility] [address] [id number] [address] [place] [address], [place] [address] November, [facility] [address] [id number] [address] [place] [address], [place] [address] November, [facility] [address] [id number] [address] [place] [address], [place] [address] November, [facility] [address] [id number] [address] [place] [address], [place] [address] November, [facility] [address] [id number] [address] [place] [address], [place] [address] November, [facility] [address] [id number] [address] [place] [address], [place] [address] Oct, [facility] [address] [id number] [address] [place] [address], [place] [address] Oct, [facility] [address] [id number] [address] [place] [address], [place] [address] Oct, [facility] [address] [id number] [address] [place] [address], [place] [address] Oct, [facility] [address] [id number] [address] [place] [address], [place] [address] Oct, [facility] [address] [id number] [address] [place] [address], [place] [address] Oct, [facility] [address] [id number] [address] [place] [address], [place] [address] Sep, [facility] [address] [id number] [address] [place] [address], [place] [address] Sep, [facility] [address] [id number] [address] [place] [address], [place] [address] Sep, [facility] [address] [id number] [address] [place] [address], [place] [address] Sep, [facility] [address] [id number] [address] [place] [address], [place] [address] Sep, [facility] [address] [id number] [address] [place] [address], [place] [address] Sep, [facility] [address] [id number] [address] [place] [address], [place] [address] Aug, [facility] [address] [id number] [address] [place] [address], [place] [address] Aug, [facility] [address] [id number] [address] [place] [address], [place] [address] Jul, [facility] [address] [id number] [address] [place] [address], [place] [address] Jul, [facility] [address] [id number] [address] [place] [address], [place] [address] Jul, [facility] [address] [id number] [address] [place] [address], [place] [address] Jul, [facility] [address] [id number] [address] [place] [address], [place] [address] Jul, [facility] [address] [id number] [address] [place] [address], [place] [address] Jul, [facility] [address] [id number] [address] [place] [address], [place] [address] Jul, [facility] [address] [id number] [address] [place] [address], [place] [address] Jul, [facility] [address] [id number] [address] [place] [address], [place] [address] Jul, [facility] [address] [id number] [address] [place] [address], [place] [address] Jul, [facility] [address] [id number] [address] [place] [address], [place] [address] Jul, [facility] [address] [id number] [address] [place] [address], [place] [address] Jul, [facility] [address] [id number] [address] [place] [address], [place] [address] Jun, [facility] [address] [id number] [address] [place] [address], [place] [address] Jun, [facility] [address] [id number] [address] [place] [address], [place] [address] 20 Jun, 2013 [facility] [address] [id number] [address] [place] [address], [place] [address] 20 Jun, 2013 [facility] [address] [id number] [address] [place] [address], [place] [address] Jun, [facility] [address] [id number] [address] [place] [address], [place] [address] Jun, [facility] [address] [id number] [address] [place] [address], [place] [address] Jun, [facility] [address] [id number] [address] [place] [address], [place] [address] Jun, [facility] [address] [id number] [address] [place] [address], [place] [address] 18 May, 2013 [facility] [address] [id number] [address] [place] [address], [place] [address] 18 May, 2013 [facility] [address] [id number] [address] [place] [address], [place] [address] May, [facility] [address] [id number] [address] [place] [address], [place] [address] May, [facility] [address] [id number] [address] [place] [address], [place] [address] 10 Apr, 2013 [facility] [address] [id number] [address] [place] [address], [place] [address] 10 Apr, 2013 [facility] [address] [id number] [address] [place] [address], [place] [address] 07 Apr, 2013 [facility] [address] [id number] [address] [place] [address], [place] [address] 10 Mar, 2013 [facility] [address] [id number] [address] [place] [address], [place] [address] 09 Feb, 2013 [facility] [address] [id number] [address] [place] [address], [place] [address] Jan, [facility] [address] [facility] [id number] [address] [place] [id number] Jan, [facility] [address] [facility] [id number] [address] [place] [id number] Jan, IMMUNIZATIONS No Known Immunizations SOCIAL HISTORY Never Assessed REASON FOR VISIT PLAN OF CARE VITAL SIGNS MEDICATIONS Unknown Medications RESULTS No Results PROCEDURES No Known procedures INSTRUCTIONS MEDICATIONS ADMINISTERED No Known Medications MEDICAL (GENERAL) HISTORY Type Description Date Hospitalization History UTI 12/04/2015
--- OUTSIDE RECORDS SUMMARY | 2020-01-12 11:30 | XMS REPORT ---
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 Active 74446208 Problem Depressive disorder, not elsewhere classified 311 Active 89094215 Problem Generalized anxiety disorder 300.02 A ctive 59849398 Problem Major depression F32.9 Active 370 160916 Problem Essential hypertension, benign 401.1 Active 9765134 Problem Generalized anxiety disorder F41.1 A ctive 53036152 Problem Pain in joint, lower leg 719.46 Activ e 772116859 Problem Anxiety state, unspecified 300.00 Act disha 169181406 Problem Other and unspecified hyperlipidemia 272.4 Active 43787489 Problem Major depressive disorder, recurrent episode, moderate 296 .32 Active 39694784 Problem Attention deficit hyperactivity disorder F90.9 Active [id number] ALLERGIES No Information ENCOUNTERS Encounter Location Date Diagnosis [facility] [address] [facility] [id number] [address] [place] [phone] Jun, [facility] [address] [place] [id number] [address] [place] [id number] May, Generalized anxiety disorder F41.1 ; Major depression F32.9 and Attention deficit hyperactivity disorder F90.9 [facility] [address] [facility] [id number] [address] [place] [id number] Feb, [facility] [address] [place] [id number] [address] [place] [phone] Jan, [facility] [address] [facility] [id number] [address] [place] [address] Dec, [facility] [address] [facility] [id number] [address] [place] [phone] Dec, [facility] [address] [facility] [id number] [address] [place] [id number] Dec, Generalized anxiety disorder F41.1 ; Major depression F32.9 and Attention deficit hyperactivity disorder F90.9 [facility] [address] [id number] [address] [place] [address] Oct, [facility] [address] [facility] [id number] [address] [place] [phone] Oct, [facility] [address] [facility] [id number] [address] [place] [phone] Sep, [facility] [address] [facility] [id number] [address] [place] [phone] Sep, [facility] [address] [facility] [id number] [address] [place] [phone] Aug, [facility] [address] [facility] [id number] [address] [place] [phone] Aug, Generalized anxiety disorder F41.1 ; Major depression F32.9 and Attention deficit hyperactivity disorder F90.9 [facility] [address] [facility] [id number] [address] [place] [phone] Aug, [facility] [address] [facility] [id number] [address] [place] [phone] Aug, [facility] [address] [facility] [id number] [address] [place] [phone] Jun, [facility] [address] [facility] [id number] [address] [place] [phone] Jun, [facility] [address] [facility] [id number] [address] [place] [phone] Jun, Attention deficit hyperactiv ity disorder F90.9 ; Generalized anxiety disorder F41.1 and Major depression F32.9 [facility] [address] [facility] [id number] [address] [place] [phone] Jun, [facility] [address] [id number] [address] [place] [phone] Apr, [facility] [address] [id number] [address] [place] [phone] Mar, [facility] [address] [id number] [address] [place] [phone] Mar, [facility] [address] [id number] [address] [place] [id number] Feb, ADD (attention deficit disor nerissa) 314.00 ; Major depressive disorder, recurrent episode, moderate 296.32 and Generalized anxiety disorder 300.02 [facility] [address] [id number] [address] [place] [phone] Feb, [facility] [address] [id number] [address] [place] [phone] Feb, [facility] [address] [facility] [id number] [address] [place] [phone] Jan, [facility] [address] [id number] [address] [place] [phone] Jan, [facility] [address] [facility] [id number] [address] [place] [phone] Jan, [facility] [address] [facility] [id number] [address] [place] [id number] Jan, [facility] [address] [id number] [address] [place] [phone] Dec, [facility] [address] [id number] [address] [place] [phone] Dec, [facility] [address] [id number] [address] [place] [phone] Dec, [facility] [address] [facility] [id number] [address] [place] [phone] November, Attention deficit disorder o f childhood 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 314.00 ; Generalized anxiety disorder 300.02 and Major depressive disorder, recurrent episode, moderate 296.32 [facility] [address] [id number] [address] [place] [phone] November, [facility] [address] [id number] [address] [place] [phone] November, [facility] [address] [id number] [address] [place] [phone] November, Anxiety state 300.00 [facility] [address] [id number] [address] [place] [phone] Oct, [facility] [address] [id number] [address] [place] [address], [place] [address] Oct, [facility] [address] [id number] [address] [place] [phone] Sep, [facility] [address] [id number] [address] [place] [phone] Sep, [facility] [address] [id number] [address] [place] [phone] Sep, [facility] [address] [id number] [address] [place] [phone] Sep, [facility] [address] [id number] [address] [place] [phone] Sep, [facility] [address] [id number] [address] [place] [phone] Sep, [facility] [address] [id number] [address] [place] [phone] Aug, [facility] [address] [id number] [address] [place] [phone] Aug, [facility] [address] [id number] [address] [place] [phone] Aug, [facility] [address] [id number] [address] [place] [phone] Aug, [facility] [address] [id number] [address] [place] [address], [place] [address] Aug, 2014 [facility] [address] [id number] [address] [place] [address], [place] [address] Aug, 2014 [facility] [address] [id number] [address] [place] [address], [place] [address] Aug, [facility] [address] [id number] [address] [place] [address], [place] [address] Aug, [facility] [address] [id number] [address] [place] [address], [place] [address] Jul, [facility] [address] [id number] [address] [place] [address], [place] [address] Jul, [facility] [address] [id number] [address] [place] [address], [place] [address] Jul, [facility] [address] [id number] [address] [place] [address], [place] [address] Jul, [facility] [address] [id number] [address] [place] [address], [place] [address] Jul, [facility] [address] [id number] [address] [place] [address], [place] [address] Jul, [facility] [address] [id number] [address] [place] [address], [place] [address] Jun, [facility] [address] [id number] [address] [place] [address], [place] [address] Jun, [facility] [address] [id number] [address] [place] [address], [place] [address] Jun, [facility] [address] [id number] [address] [place] [address], [place] [address] Jun, [facility] [address] [id number] [address] [place] [address], [place] [address] Jun, [facility] [address] [id number] [address] [place] [address], [place] [address] Jun, [facility] [address] [id number] [address] [place] [address], [place] [address] May, [facility] [address] [id number] [address] [place] [address], [place] [address] May, [facility] [address] [id number] [address] [place] [address], [place] [address] May, [facility] [address] [id number] [address] [place] [address], [place] [address] May, [facility] [address] [id number] [address] [place] [address], [place] [address] May, [facility] [address] [id number] [address] [place] [address], [place] [address] May, [facility] [address] [id number] [address] [place] [address], [place] [address] May, [facility] [address] [id number] [address] [place] [address], [place] [address] May, [facility] [address] [id number] [address] [place] [address], [place] [address] May, [facility] [address] [id number] [address] [place] [address], [place] [address] May, [facility] [address] [id number] [address] [place] [address], [place] [address] Apr, [facility] [address] [id number] [address] [place] [address], [place] [address] Apr, [facility] [address] [id number] [address] [place] [address], [place] [address] Apr, [facility] [address] [id number] [address] [place] [address], [place] [address] Apr, [facility] [address] [id number] [address] [place] [address], [place] [address] 09 Apr, 2014 [facility] [address] [id number] [address] [place] [address], [place] [address] Apr, [facility] [address] [id number] [address] [place] [address], [place] [address] Apr, [facility] [address] [id number] [address] [place] [address], [place] [address] Apr, [facility] [address] [id number] [address] [place] [address], [place] [address] 15 Mar, 2014 [facility] [address] [id number] [address] [place] [address], [place] [address] 15 Mar, 2014 [facility] [address] [id number] [address] [place] [address], [place] [address] Mar, [facility] [address] [id number] [address] [place] [address], [place] [address] Mar, [facility] [address] [id number] [address] [place] [address], [place] [address] Mar, [facility] [address] [id number] [address] [place] [address], [place] [address] Mar, [facility] [address] [id number] [address] [place] [address], [place] [address] Feb, [facility] [address] [id number] [address] [place] [address], [place] [address] Feb, [facility] [address] [id number] [address] [place] [address], [place] [address] Feb, [facility] [address] [id number] [address] [place] [address], [place] [address] Feb, [facility] [address] [id number] [address] [place] [address], [place] [address] Feb, [facility] [address] [id number] [address] [place] [address], [place] [address] Feb, [facility] [address] [id number] [address] [place] [address], [place] [address] Jan, [facility] [address] [id number] [facility] [place] [address] Jan, [facility] [address] [id number] [facility] [place] [address] Jan, [facility] [address] [id number] [facility] [place] [address] Jan, [facility] [address] [id number] [facility] [place] [address] Jan, [facility] [address] [id number] [facility] [place] [address] Jan, [facility] [address] [id number] [address] [place] [address], [place] [address] Dec, [facility] [address] [id number] [address] [place] [address], [place] [address] Dec, [facility] [address] [id number] [address] [place] [address], [place] [address] Dec, [facility] [address] [id number] [address] [place] [address], [place] [address] Dec, [facility] [address] [id number] [address] [place] [address], [place] [address] Dec, [facility] [address] [id number] [address] [place] [address], [place] [address] November, [facility] [address] [id number] [address] [place] [address], [place] [address] November, [facility] [address] [id number] [address] [place] [address], [place] [address] November, [facility] [address] [id number] [address] [place] [address], [place] [address] November, [facility] [address] [id number] [address] [place] [address], [place] [address] November, [facility] [address] [id number] [address] [place] [address], [place] [address] November, [facility] [address] [id number] [address] [place] [address], [place] [address] November, [facility] [address] [id number] [address] [place] [address], [place] [address] November, [facility] [address] [id number] [address] [place] [address], [place] [address] Oct, [facility] [address] [id number] [address] [place] [address], [place] [address] Oct, [facility] [address] [id number] [address] [place] [address], [place] [address] Oct, [facility] [address] [id number] [address] [place] [address], [place] [address] Oct, [facility] [address] [id number] [address] [place] [address], [place] [address] Oct, [facility] [address] [id number] [address] [place] [address], [place] [address] Oct, [facility] [address] [id number] [address] [place] [address], [place] [address] Sep, [facility] [address] [id number] [address] [place] [address], [place] [address] Sep, [facility] [address] [id number] [address] [place] [address], [place] [address] Sep, [facility] [address] [id number] [address] [place] [address], [place] [address] Sep, [facility] [address] [id number] [address] [place] [address], [place] [address] Sep, [facility] [address] [id number] [address] [place] [address], [place] [address] Sep, [facility] [address] [id number] [address] [place] [address], [place] [address] Aug, [facility] [address] [id number] [address] [place] [address], [place] [address] Aug, [facility] [address] [id number] [address] [place] [address], [place] [address] Jul, [facility] [address] [id number] [address] [place] [address], [place] [address] Jul, [facility] [address] [id number] [address] [place] [address], [place] [address] Jul, [facility] [address] [id number] [address] [place] [address], [place] [address] Jul, [facility] [address] [id number] [address] [place] [address], [place] [address] Jul, [facility] [address] [id number] [address] [place] [address], [place] [address] Jul, [facility] [address] [id number] [address] [place] [address], [place] [address] Jul, [facility] [address] [id number] [address] [place] [address], [place] [address] Jul, [facility] [address] [id number] [address] [place] [address], [place] [address] Jul, [facility] [address] [id number] [address] [place] [address], [place] [address] Jul, [facility] [address] [id number] [address] [place] [address], [place] [address] Jul, [facility] [address] [id number] [address] [place] [address], [place] [address] Jul, [facility] [address] [id number] [address] [place] [address], [place] [address] Jun, [facility] [address] [id number] [address] [place] [address], [place] [address] Jun, [facility] [address] [id number] [address] [place] [address], [place] [address] Jun, [facility] [address] [id number] [address] [place] [address], [place] [address] Jun, [facility] [address] [id number] [address] [place] [address], [place] [address] Jun, [facility] [address] [id number] [address] [place] [address], [place] [address] Jun, [facility] [address] [id number] [address] [place] [address], [place] [address] Jun, [facility] [address] [id number] [address] [place] [address], [place] [address] Jun, [facility] [address] [id number] [address] [place] [address], [place] [address] May, [facility] [address] [id number] [address] [place] [address], [place] [address] May, [facility] [address] [id number] [address] [place] [address] May, [facility] [address] [id number] [address] [place] [address], [place] [address] May, [facility] [address] [id number] [address] [place] [address] Apr, [facility] [address] [id number] [address] [place] [id number] Apr, [facility] [address] [id number] [address] [place] [phone] 07 Apr, 2013 [facility] [address] [id number] [address] [place] [phone] 10 Mar, 2013 [facility] [address] [id number] [address] [place] [id number] 09 Feb, 2013 [facility] [address] [id number] [address] [place] [id number] 15 Jan, 2013 [facility] [address] [id number] [address] [place] [phone] Jan, [facility] [address] [facility] [id number] [address] [place] [phone] Jan, IMMUNIZATIONS No Known Immunizations SOCIAL HISTORY Never Assessed REASON FOR VISIT PLAN OF CARE VITAL SIGNS MEDICATIONS Unknown Medications RESULTS No Results PROCEDURES No Known procedures INSTRUCTIONS MEDICATIONS ADMINISTERED No Known Medications MEDICAL (GENERAL) HISTORY Type Description Date Hospitalization History UTI 12/04/2015
--- OUTSIDE RECORDS SUMMARY | 2020-01-12 11:30 | XMS REPORT ---
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 Active 13313095 Problem Depressive disorder, not elsewhere classified 311 Active 05332873 Problem Generalized anxiety disorder 300.02 A ctive 67614271 Problem Major depression F32.9 Active 370 965171 Problem Essential hypertension, benign 401.1 Active 0385658 Problem Generalized anxiety disorder F41.1 A ctive 81907658 Problem Pain in joint, lower leg 719.46 Activ e [id number] Problem Anxiety state, unspecified 300.00 Act disha 499140813 Problem Other and unspecified hyperlipidemia 272.4 Active 71898763 Problem Major depressive disorder, recurrent episode, moderate 296 .32 Active 70474169 Problem Attention deficit hyperactivity disorder F90.9 Active [id number] ALLERGIES No Information ENCOUNTERS Encounter Location Date Diagnosis [facility] [address] [facility] [id number] [address] [place] [address] Jun, [facility] [address] [facility] [id number] [address] [place] [address] May, Generalized anxiety disorder F41.1 ; Major depression F32.9 and Attention deficit hyperactivity disorder F90.9 [facility] [address] [facility] [id number] [address] [place] [address] Feb, [facility] [address] [facility] [id number] [address] [place] [id number] Jan, [facility] [address] [facility] [id number] [address] [place] [address] Dec, [facility] [address] [facility] [id number] [address] [place] [id number] Dec, [facility] [address] [id number] [address] [place] [id number] Dec, Generalized anxiety disorder F41.1 ; Major depression F32.9 and Attention deficit hyperactivity disorder F90.9 [facility] [address] [id number] [address] [place] [phone] Oct, [facility] [address] [id number] [address] [place] [address] Oct, [facility] [address] [facility] [id number] [address] [place] [address] Sep, [facility] [address] [facility] [id number] [address] [place] [address] Sep, [facility] [address] [facility] [id number] [address] [place] [phone] Aug, [facility] [address] [facility] [id number] [address] [place] [address] Aug, Generalized anxiety disorder F41.1 ; Major depression F32.9 and Attention deficit hyperactivity disorder F90.9 [facility] [address] [facility] [id number] [address] [place] [phone] Aug, [facility] [address] [facility] [id number] [address] [place] [address] Aug, [facility] [address] [facility] [id number] [address] [place] [address] Jun, [facility] [address] [facility] [id number] [address] [place] [id number] Jun, [facility] [address] [facility] [id number] [address] [place] [address] Jun, Attention deficit hyperactiv ity disorder F90.9 ; Generalized anxiety disorder F41.1 and Major depression F32.9 [facility] [address] [facility] [id number] [address] [place] [address] Jun, [facility] [address] [id number] [address] [place] [address] Apr, [facility] [address] [id number] [address] [place] [address] Mar, [facility] [address] [facility] [id number] [address] [place] [address] Mar, [facility] [address] [id number] [address] [place] [phone] Feb, ADD (attention deficit disor nerissa) 314.00 ; Major depressive disorder, recurrent episode, moderate 296.32 and Generalized anxiety disorder 300.02 [facility] [address] [id number] [address] [place] [id number] Feb, [facility] [address] [facility] [id number] [address] [place] [address] Feb, [facility] [address] [facility] [id number] [address] [place] [address] Jan, [facility] [address] [id number] [address] [place] [address] Jan, [facility] [address] [facility] [id number] [address] [place] [address] Jan, [facility] [address] [facility] [id number] [address] [place] [id number] Jan, [facility] [address] [facility] [id number] [address] [place] [address] Dec, [facility] [address] [id number] [address] [place] [address] Dec, [facility] [address] [facility] [id number] [address] [place] [address] Dec, [facility] [address] [facility] [id number] [address] [place] [address] November, Attention deficit disorder o f childhood 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 314.00 ; Generalized anxiety disorder 300.02 and Major depressive disorder, recurrent episode, moderate 296.32 [facility] [address] [id number] [address] [place] [address] November, [facility] [address] [id number] [address] [place] [address] November, [facility] [address] [id number] [address] [place] [address] November, Anxiety state 300.00 [facility] [address] [id number] [address] [place] [address] Oct, [facility] [address] [id number] [address] [place] [address] Oct, [facility] [address] [id number] [address] [place] [address] Sep, [facility] [address] [id number] [address] [place] [address] Sep, [facility] [address] [id number] [address] [place] [address] Sep, [facility] [address] [id number] [address] [place] [address] Sep, [facility] [address] [facility] [id number] [address] [place] [address] Sep, [facility] [address] [id number] [address] [place] [address] Sep, [facility] [address] [id number] [address] [place] [address] Aug, [facility] [address] [id number] [address] [place] [id number] Aug, [facility] [address] [id number] [address] [place] [address] Aug, [facility] [address] [id number] [address] [place] [address] Aug, [facility] [address] [id number] [address] [place] [address], [place] [address] Aug, [facility] [address] [id number] [address] [place] [address], [place] [address] Aug, 2014 [facility] [address] [id number] [address] [place] [address], [place] [address] Aug, [facility] [address] [id number] [address] [place] [address], [place] [address] Aug, [facility] [address] [id number] [address] [place] [address], [place] [address] Jul, [facility] [address] [id number] [address] [place] [address], [place] [address] Jul, [facility] [address] [id number] [address] [place] [address], [place] [address] Jul, [facility] [address] [id number] [address] [place] [address], [place] [address] Jul, [facility] [address] [id number] [address] [place] [address], [place] [address] Jul, [facility] [address] [id number] [address] [place] [address], [place] [address] Jul, [facility] [address] [id number] [address] [place] [address], [place] [address] Jun, [facility] [address] [id number] [address] [place] [phone] Jun, [facility] [address] [id number] [address] [place] [address], [place] [address] Jun, [facility] [address] [id number] [address] [place] [address], [place] [address] Jun, [facility] [address] [id number] [address] [place] [address], [place] [address] Jun, [facility] [address] [id number] [address] [place] [address], [place] [address] Jun, [facility] [address] [id number] [address] [place] [address], [place] [address] May, [facility] [address] [id number] [address] [place] [address], [place] [address] May, [facility] [address] [id number] [address] [place] [address], [place] [address] May, [facility] [address] [id number] [address] [place] [address], [place] [address] May, [facility] [address] [id number] [address] [place] [address], [place] [address] May, [facility] [address] [id number] [address] [place] [address], [place] [address] May, [facility] [address] [id number] [address] [place] [address], [place] [address] May, [facility] [address] [id number] [address] [place] [address], [place] [address] May, [facility] [address] [id number] [address] [place] [address], [place] [address] May, [facility] [address] [id number] [address] [place] [address], [place] [address] May, [facility] [address] [id number] [address] [place] [address], [place] [address] Apr, [facility] [address] [id number] [address] [place] [address], [place] [address] Apr, [facility] [address] [id number] [address] [place] [address], [place] [address] Apr, [facility] [address] [id number] [address] [place] [address], [place] [address] Apr, [facility] [address] [id number] [address] [place] [address], [place] [address] Apr, [facility] [address] [id number] [address] [place] [address], [place] [address] Apr, [facility] [address] [id number] [address] [place] [address], [place] [address] Apr, [facility] [address] [id number] [address] [place] [address], [place] [address] Apr, [facility] [address] [id number] [address] [place] [address], [place] [address] Mar, [facility] [address] [id number] [address] [place] [address], [place] [address] 15 Mar, 2014 [facility] [address] [id number] [address] [place] [address], [place] [address] Mar, [facility] [address] [id number] [address] [place] [address], [place] [address] Mar, [facility] [address] [id number] [address] [place] [address], [place] [address] Mar, [facility] [address] [id number] [address] [place] [address], [place] [address] Mar, [facility] [address] [id number] [address] [place] [address], [place] [address] Feb, [facility] [address] [id number] [address] [place] [address], [place] [address] Feb, [facility] [address] [id number] [address] [place] [address], [place] [address] Feb, [facility] [address] [id number] [address] [place] [address], [place] [address] Feb, [facility] [address] [id number] [address] [place] [address], [place] [address] Feb, [facility] [address] [id number] [address] [place] [address], [place] [address] Feb, [facility] [address] [id number] [facility] [place] [address] Jan, [facility] [address] [id number] [address] [place] [address], [place] [address] Jan, [facility] [address] [id number] [facility] [place] [address] Jan, [facility] [address] [id number] [address] [place] [address], [place] [address] Jan, [facility] [address] [id number] [address] [place] [address], [place] [address] Jan, [facility] [address] [id number] [address] [place] [address], [place] [address] Jan, [facility] [address] [id number] [address] [place] [address], [place] [address] Dec, [facility] [address] [id number] [address] [place] [address], [place] [address] Dec, [facility] [address] [id number] [address] [place] [address], [place] [address] Dec, [facility] [address] [id number] [address] [place] [address], [place] [address] Dec, [facility] [address] [id number] [address] [place] [address], [place] [address] Dec, [facility] [address] [id number] [address] [place] [address], [place] [address] November, [facility] [address] [id number] [address] [place] [address], [place] [address] November, [facility] [address] [id number] [address] [place] [address], [place] [address] November, [facility] [address] [id number] [address] [place] [address], [place] [address] November, [facility] [address] [id number] [address] [place] [address], [place] [address] November, [facility] [address] [id number] [address] [place] [address], [place] [address] November, [facility] [address] [id number] [address] [place] [address], [place] [address] November, [facility] [address] [id number] [address] [place] [address], [place] [address] November, [facility] [address] [id number] [address] [place] [address], [place] [address] Oct, [facility] [address] [id number] [address] [place] [address], [place] [address] Oct, [facility] [address] [id number] [address] [place] [address], [place] [address] Oct, [facility] [address] [id number] [address] [place] [address], [place] [address] Oct, [facility] [address] [id number] [address] [place] [address], [place] [address] Oct, [facility] [address] [id number] [address] [place] [address], [place] [address] Oct, [facility] [address] [id number] [address] [place] [address], [place] [address] Sep, [facility] [address] [id number] [address] [place] [address], [place] [address] Sep, [facility] [address] [id number] [address] [place] [address], [place] [address] Sep, [facility] [address] [id number] [address] [place] [address], [place] [address] Sep, [facility] [address] [id number] [address] [place] [address], [place] [address] Sep, [facility] [address] [id number] [address] [place] [address], [place] [address] Sep, [facility] [address] [id number] [address] [place] [address], [place] [address] Aug, [facility] [address] [id number] [address] [place] [address], [place] [address] Aug, [facility] [address] [id number] [address] [place] [address], [place] [address] Jul, [facility] [address] [id number] [address] [place] [address], [place] [address] Jul, [facility] [address] [id number] [address] [place] [address], [place] [address] Jul, [facility] [address] [id number] [address] [place] [address], [place] [address] Jul, [facility] [address] [id number] [address] [place] [address], [place] [address] Jul, [facility] [address] [id number] [address] [place] [address], [place] [address] Jul, [facility] [address] [id number] [address] [place] [address], [place] [address] Jul, [facility] [address] [id number] [address] [place] [address], [place] [address] Jul, [facility] [address] [id number] [address] [place] [address], [place] [address] Jul, [facility] [address] [id number] [address] [place] [address], [place] [address] Jul, [facility] [address] [id number] [address] [place] [address], [place] [address] Jul, [facility] [address] [id number] [address] [place] [address], [place] [id number] Jul, [facility] [address] [id number] [address] [place] [address], [place] [address] Jun, [facility] [address] [id number] [address] [place] [address], [place] [address] Jun, [facility] [address] [id number] [address] [place] [address], [place] [id number] 20 Jun, 2013 [facility] [address] [id number] [address] [place] [address], [place] [id number] 20 Jun, 2013 [facility] [address] [id number] [address] [place] [address], [place] [address] Jun, [facility] [address] [id number] [address] [place] [address], [place] [address] Jun, [facility] [address] [id number] [address] [place] [address], [place] [address] Jun, [facility] [address] [id number] [address] [place] [address], [place] [id number] Jun, [facility] [address] [id number] [address] [place] [address], [place] [id number] 18 May, 2013 [facility] [address] [id number] [address] [place] [address], [place] [address] 18 May, 2013 [facility] [address] [id number] [address] [place] [address], [place] [address] May, [facility] [address] [id number] [address] [place] [address], [place] [id number] May, [facility] [address] [id number] [address] [place] [address], [place] [id number] 10 Apr, 2013 [facility] [address] [id number] [address] [place] [address], [place] [id number] 10 Apr, 2013 [facility] [address] [id number] [address] [place] [address], [place] [id number] 07 Apr, 2013 [facility] [address] [id number] [address] [place] [address], [place] [id number] 10 Mar, 2013 [facility] [address] [id number] [address] [place] [address], [place] [id number] 09 Feb, 2013 [facility] [address] [id number] [address] [place] [address], [place] [id number] Jan, [facility] [address] [facility] [id number] [address] [place] [id number] Jan, [facility] [address] [facility] [id number] [address] [place] [id number] Jan, IMMUNIZATIONS No Known Immunizations SOCIAL HISTORY Never Assessed REASON FOR VISIT PLAN OF CARE VITAL SIGNS MEDICATIONS Unknown Medications RESULTS No Results PROCEDURES No Known procedures INSTRUCTIONS MEDICATIONS ADMINISTERED No Known Medications MEDICAL (GENERAL) HISTORY Type Description Date Hospitalization History UTI 12/04/2015
--- OUTSIDE RECORDS SUMMARY | 2020-01-12 11:30 | XMS REPORT ---
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 Active 84609154 Problem Depressive disorder, not elsewhere classified 311 Active 65695609 Problem Generalized anxiety disorder 300.02 A ctive 58087984 Problem Major depression F32.9 Active 370 491310 Problem Essential hypertension, benign 401.1 Active 5647352 Problem Generalized anxiety disorder F41.1 A ctive 98367231 Problem Pain in joint, lower leg 719.46 Activ e 973359096 Problem Anxiety state, unspecified 300.00 Act disha 380976935 Problem Other and unspecified hyperlipidemia 272.4 Active 53941034 Problem Major depressive disorder, recurrent episode, moderate 296 .32 Active 59848495 Problem Attention deficit hyperactivity disorder F90.9 Active [id number] ALLERGIES No Information ENCOUNTERS Encounter Location Date Diagnosis [facility] [address] [facility] [id number] [address] [place] [id number] Jun, [facility] [address] [place] [id number] [address] [place] [phone] May, Generalized anxiety disorder F41.1 ; Major depression F32.9 and Attention deficit hyperactivity disorder F90.9 [facility] [address] [facility] [id number] [address] [place] [id number] Feb, [facility] [address] [facility] [id number] [address] [place] [phone] Jan, [facility] [address] [facility] [id number] [address] [place] [id number] Dec, [facility] [address] [facility] [id number] [address] [place] [id number] Dec, [facility] [address] [facility] [id number] [address] [place] [id number] Dec, Generalized anxiety disorder F41.1 ; Major depression F32.9 and Attention deficit hyperactivity disorder F90.9 [facility] [address] [id number] [address] [place] [id number] Oct, [facility] [address] [facility] [id number] [address] [place] [address] Oct, [facility] [address] [facility] [id number] [address] [place] [id number] Sep, [facility] [address] [facility] [id number] [address] [place] [phone] Sep, [facility] [address] [facility] [id number] [address] [place] [id number] Aug, [facility] [address] [facility] [id number] [address] [place] [id number] Aug, Generalized anxiety disorder F41.1 ; Major depression F32.9 and Attention deficit hyperactivity disorder F90.9 [facility] [address] [facility] [id number] [address] [place] [id number] Aug, [facility] [address] [facility] [id number] [address] [place] [id number] Aug, [facility] [address] [facility] [id number] [address] [place] [id number] Jun, [facility] [address] [facility] [id number] [address] [place] [phone] Jun, [facility] [address] [facility] [id number] [address] [place] [phone] Jun, Attention deficit hyperactiv ity disorder F90.9 ; Generalized anxiety disorder F41.1 and Major depression F32.9 [facility] [address] [facility] [id number] [address] [place] [phone] Jun, [facility] [address] [id number] [address] [place] [phone] Apr, [facility] [address] [id number] [address] [place] [id number] Mar, [facility] [address] [id number] [address] [place] [id number] Mar, [facility] [address] [id number] [address] [place] [phone] Feb, ADD (attention deficit disor nerissa) 314.00 ; Major depressive disorder, recurrent episode, moderate 296.32 and Generalized anxiety disorder 300.02 [facility] [address] [id number] [address] [place] [phone] Feb, [facility] [address] [id number] [address] [place] [address] Feb, [facility] [address] [facility] [id number] [address] [place] [phone] Jan, [facility] [address] [id number] [address] [place] [phone] Jan, [facility] [address] [facility] [id number] [address] [place] [phone] Jan, [facility] [address] [facility] [id number] [address] [place] [phone] Jan, [facility] [address] [id number] [address] [place] [address] Dec, [facility] [address] [id number] [address] [place] [phone] Dec, [facility] [address] [id number] [address] [place] [address] Dec, [facility] [address] [facility] [id number] [address] [place] [phone] November, Attention deficit disorder o f childhood 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 314.00 ; Generalized anxiety disorder 300.02 and Major depressive disorder, recurrent episode, moderate 296.32 [facility] [address] [id number] [address] [place] [id number] November, [facility] [address] [id number] [address] [place] [phone] November, [facility] [address] [id number] [address] [place] [address] November, Anxiety state 300.00 [facility] [address] [id number] [address] [place] [phone] Oct, [facility] [address] [id number] [address] [place] [address], [place] [address] Oct, [facility] [address] [id number] [address] [place] [phone] Sep, [facility] [address] [id number] [address] [place] [address] Sep, [facility] [address] [id number] [address] [place] [id number] Sep, [facility] [address] [id number] [address] [place] [phone] Sep, [facility] [address] [id number] [address] [place] [phone] Sep, [facility] [address] [id number] [address] [place] [phone] Sep, [facility] [address] [id number] [address] [place] [phone] Aug, [facility] [address] [id number] [address] [place] [phone] Aug, [facility] [address] [id number] [address] [place] [phone] Aug, [facility] [address] [id number] [address] [place] [phone] Aug, [facility] [address] [id number] [address] [place] [address], [place] [address] Aug, 2014 [facility] [address] [id number] [address] [place] [address], [place] [address] Aug, 2014 [facility] [address] [id number] [address] [place] [address], [place] [address] Aug, [facility] [address] [id number] [address] [place] [address], [place] [address] Aug, [facility] [address] [id number] [address] [place] [address], [place] [address] Jul, [facility] [address] [id number] [address] [place] [address], [place] [address] Jul, [facility] [address] [id number] [address] [place] [address], [place] [address] Jul, [facility] [address] [id number] [address] [place] [address], [place] [address] Jul, [facility] [address] [id number] [address] [place] [address], [place] [address] Jul, [facility] [address] [id number] [address] [place] [address], [place] [address] Jul, [facility] [address] [id number] [address] [place] [address], [place] [address] Jun, [facility] [address] [id number] [address] [place] [address], [place] [address] Jun, [facility] [address] [id number] [address] [place] [address], [place] [address] Jun, [facility] [address] [id number] [address] [place] [address], [place] [address] Jun, [facility] [address] [id number] [address] [place] [address], [place] [address] Jun, [facility] [address] [id number] [address] [place] [address], [place] [address] Jun, [facility] [address] [id number] [address] [place] [address], [place] [address] May, [facility] [address] [id number] [address] [place] [address], [place] [address] May, [facility] [address] [id number] [address] [place] [address], [place] [address] May, [facility] [address] [id number] [address] [place] [address], [place] [address] May, [facility] [address] [id number] [address] [place] [address], [place] [address] May, [facility] [address] [id number] [address] [place] [address], [place] [address] May, [facility] [address] [id number] [address] [place] [address], [place] [address] May, [facility] [address] [id number] [address] [place] [address], [place] [address] May, [facility] [address] [id number] [address] [place] [address], [place] [address] May, [facility] [address] [id number] [address] [place] [address], [place] [address] May, [facility] [address] [id number] [address] [place] [address], [place] [address] Apr, [facility] [address] [id number] [address] [place] [address], [place] [address] Apr, [facility] [address] [id number] [address] [place] [address], [place] [address] Apr, [facility] [address] [id number] [address] [place] [address], [place] [address] Apr, [facility] [address] [id number] [address] [place] [address], [place] [address] 09 Apr, 2014 [facility] [address] [id number] [address] [place] [address], [place] [address] Apr, [facility] [address] [id number] [address] [place] [address], [place] [address] Apr, [facility] [address] [id number] [address] [place] [address], [place] [address] Apr, [facility] [address] [id number] [address] [place] [address], [place] [address] 15 Mar, 2014 [facility] [address] [id number] [address] [place] [address], [place] [address] 15 Mar, 2014 [facility] [address] [id number] [address] [place] [address], [place] [address] Mar, [facility] [address] [id number] [address] [place] [address], [place] [address] Mar, [facility] [address] [id number] [address] [place] [address], [place] [address] Mar, [facility] [address] [id number] [address] [place] [address], [place] [address] Mar, [facility] [address] [id number] [address] [place] [address], [place] [address] Feb, [facility] [address] [id number] [address] [place] [address], [place] [address] Feb, [facility] [address] [id number] [address] [place] [address], [place] [address] Feb, [facility] [address] [id number] [address] [place] [address], [place] [address] Feb, [facility] [address] [id number] [address] [place] [address], [place] [address] Feb, [facility] [address] [id number] [address] [place] [address], [place] [address] Feb, [facility] [address] [id number] [address] [place] [address], [place] [address] Jan, [facility] [address] [id number] [facility] [place] [address] Jan, [facility] [address] [id number] [facility] [place] [address] Jan, [facility] [address] [id number] [facility] [place] [address] Jan, [facility] [address] [id number] [facility] [place] [address] Jan, [facility] [address] [id number] [facility] [place] [address] Jan, [facility] [address] [id number] [address] [place] [address], [place] [address] Dec, [facility] [address] [id number] [address] [place] [address], [place] [address] Dec, [facility] [address] [id number] [address] [place] [address], [place] [address] Dec, [facility] [address] [id number] [address] [place] [address], [place] [address] Dec, [facility] [address] [id number] [address] [place] [address], [place] [address] Dec, [facility] [address] [id number] [address] [place] [address], [place] [address] November, [facility] [address] [id number] [address] [place] [address], [place] [address] November, [facility] [address] [id number] [address] [place] [address], [place] [address] November, [facility] [address] [id number] [address] [place] [address], [place] [address] November, [facility] [address] [id number] [address] [place] [address], [place] [address] November, [facility] [address] [id number] [address] [place] [address], [place] [address] November, [facility] [address] [id number] [address] [place] [address], [place] [address] November, [facility] [address] [id number] [address] [place] [address], [place] [address] November, [facility] [address] [id number] [address] [place] [address], [place] [address] Oct, [facility] [address] [id number] [address] [place] [address], [place] [address] Oct, [facility] [address] [id number] [address] [place] [address], [place] [address] Oct, [facility] [address] [id number] [address] [place] [address], [place] [address] Oct, [facility] [address] [id number] [address] [place] [address], [place] [address] Oct, [facility] [address] [id number] [address] [place] [address], [place] [address] Oct, [facility] [address] [id number] [address] [place] [address], [place] [address] Sep, [facility] [address] [id number] [address] [place] [address], [place] [address] Sep, [facility] [address] [id number] [address] [place] [address], [place] [address] Sep, [facility] [address] [id number] [address] [place] [address], [place] [address] Sep, [facility] [address] [id number] [address] [place] [address], [place] [address] Sep, [facility] [address] [id number] [address] [place] [address], [place] [address] Sep, [facility] [address] [id number] [address] [place] [address], [place] [address] Aug, [facility] [address] [id number] [address] [place] [address], [place] [address] Aug, [facility] [address] [id number] [address] [place] [address], [place] [address] Jul, [facility] [address] [id number] [address] [place] [address], [place] [address] Jul, [facility] [address] [id number] [address] [place] [address], [place] [address] Jul, [facility] [address] [id number] [address] [place] [address], [place] [address] Jul, [facility] [address] [id number] [address] [place] [address], [place] [address] Jul, [facility] [address] [id number] [address] [place] [address], [place] [address] Jul, [facility] [address] [id number] [address] [place] [address], [place] [address] Jul, [facility] [address] [id number] [address] [place] [address], [place] [address] Jul, [facility] [address] [id number] [address] [place] [address], [place] [address] Jul, [facility] [address] [id number] [address] [place] [address], [place] [address] Jul, [facility] [address] [id number] [address] [place] [address], [place] [address] Jul, [facility] [address] [id number] [address] [place] [address], [place] [address] Jul, [facility] [address] [id number] [address] [place] [address], [place] [address] Jun, [facility] [address] [id number] [address] [place] [address], [place] [address] Jun, [facility] [address] [id number] [address] [place] [address], [place] [address] Jun, [facility] [address] [id number] [address] [place] [address], [place] [address] Jun, [facility] [address] [id number] [address] [place] [address], [place] [address] Jun, [facility] [address] [id number] [address] [place] [address], [place] [address] Jun, [facility] [address] [id number] [address] [place] [address], [place] [address] Jun, [facility] [address] [id number] [address] [place] [address], [place] [address] Jun, [facility] [address] [id number] [address] [place] [address], [place] [address] May, [facility] [address] [id number] [address] [place] [address], [place] [address] May, [facility] [address] [id number] [address] [place] [address] May, [facility] [address] [id number] [address] [place] [address], [place] [phone] May, [facility] [address] [id number] [address] [place] [id number] Apr, [facility] [address] [id number] [address] [place] [id number] Apr, [facility] [address] [id number] [address] [place] [id number] 07 Apr, 2013 [facility] [address] [id number] [address] [place] [phone] 10 Mar, 2013 [facility] [address] [id number] [address] [place] [id number] 09 Feb, 2013 [facility] [address] [id number] [address] [place] [id number] 15 Jan, 2013 [facility] [address] [id number] [address] [place] [id number] Jan, [facility] [address] [facility] [id number] [address] [place] [phone] Jan, IMMUNIZATIONS No Known Immunizations SOCIAL HISTORY Never Assessed REASON FOR VISIT PLAN OF CARE VITAL SIGNS MEDICATIONS Unknown Medications RESULTS No Results PROCEDURES No Known procedures INSTRUCTIONS MEDICATIONS ADMINISTERED No Known Medications MEDICAL (GENERAL) HISTORY Type Description Date Hospitalization History UTI 12/04/2015
--- OUTSIDE RECORDS SUMMARY | 2020-01-12 11:30 | XMS REPORT ---
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 Active 00493073 Problem Depressive disorder, not elsewhere classified 311 Active 96051615 Problem Generalized anxiety disorder 300.02 A ctive 18143677 Problem Major depression F32.9 Active 370 976255 Problem Essential hypertension, benign 401.1 Active 1141915 Problem Generalized anxiety disorder F41.1 A ctive 11339665 Problem Pain in joint, lower leg 719.46 Activ e 472931194 Problem Anxiety state, unspecified 300.00 Act disha 963508358 Problem Other and unspecified hyperlipidemia 272.4 Active 04832540 Problem Major depressive disorder, recurrent episode, moderate 296 .32 Active 93156589 Problem Attention deficit hyperactivity disorder F90.9 Active [id number] ALLERGIES No Information ENCOUNTERS Encounter Location Date Diagnosis [facility] [address] [facility] [id number] [address] [place] [address] Jun, [facility] [address] [facility] [id number] [address] [place] [address] May, Generalized anxiety disorder F41.1 ; Major depression F32.9 and Attention deficit hyperactivity disorder F90.9 [facility] [address] [facility] [id number] [address] [place] [address] Feb, [facility] [address] [facility] [id number] [address] [place] [address] Jan, [facility] [address] [facility] [id number] [address] [place] [address] Dec, [facility] [address] [place] [id number] [address] [place] [address] Dec, [facility] [address] [facility] [id number] [address] [place] [address] Dec, Generalized anxiety disorder F41.1 ; Major depression F32.9 and Attention deficit hyperactivity disorder F90.9 [facility] [address] [id number] [address] [place] [address] Oct, [facility] [address] [facility] [id number] [address] [place] [address] Oct, [facility] [address] [facility] [id number] [address] [place] [address] Sep, [facility] [address] [facility] [id number] [address] [place] [address] Sep, [facility] [address] [facility] [id number] [address] [place] [address] Aug, [facility] [address] [facility] [id number] [address] [place] [address] Aug, Generalized anxiety disorder F41.1 ; Major depression F32.9 and Attention deficit hyperactivity disorder F90.9 [facility] [address] [facility] [id number] [address] [place] [address] Aug, [facility] [address] [facility] [id number] [address] [place] [address] Aug, [facility] [address] [facility] [id number] [address] [place] [address] Jun, [facility] [address] [facility] [id number] [address] [place] [address] Jun, [facility] [address] [facility] [id number] [address] [place] [address] Jun, Attention deficit hyperactiv ity disorder F90.9 ; Generalized anxiety disorder F41.1 and Major depression F32.9 [facility] [address] [facility] [id number] [address] [place] [address] Jun, [facility] [address] [id number] [address] [place] [address] Apr, [facility] [address] [facility] [id number] [address] [place] [address] Mar, [facility] [address] [facility] [id number] [address] [place] [address] Mar, [facility] [address] [id number] [address] [place] [address] Feb, ADD (attention deficit disor nerissa) 314.00 ; Major depressive disorder, recurrent episode, moderate 296.32 and Generalized anxiety disorder 300.02 [facility] [address] [id number] [address] [place] [address] Feb, [facility] [address] [facility] [id number] [address] [place] [address] Feb, [facility] [address] [facility] [id number] [address] [place] [address] Jan, [facility] [address] [facility] [id number] [address] [place] [address] Jan, [facility] [address] [facility] [id number] [address] [place] [address] Jan, [facility] [address] [facility] [id number] [address] [place] [address] Jan, [facility] [address] [facility] [id number] [address] [place] [address] Dec, [facility] [address] [id number] [address] [place] [address] Dec, [facility] [address] [facility] [id number] [address] [place] [address] Dec, [facility] [address] [facility] [id number] [address] [place] [address] November, Attention deficit disorder o f childhood 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 314.00 ; Generalized anxiety disorder 300.02 and Major depressive disorder, recurrent episode, moderate 296.32 [facility] [address] [id number] [address] [place] [address] November, [facility] [address] [id number] [address] [place] [address] November, [facility] [address] [id number] [address] [place] [address] November, Anxiety state 300.00 [facility] [address] [id number] [address] [place] [address] Oct, [facility] [address] [id number] [address] [place] [address] Oct, [facility] [address] [facility] [id number] [address] [place] [address] Sep, [facility] [address] [id number] [address] [place] [address] Sep, [facility] [address] [id number] [address] [place] [id number] Sep, [facility] [address] [facility] [id number] [address] [place] [address] Sep, [facility] [address] [facility] [id number] [address] [place] [address] Sep, [facility] [address] [id number] [address] [place] [address] Sep, [facility] [address] [id number] [address] [place] [address] Aug, [facility] [address] [id number] [address] [place] [address] Aug, [facility] [address] [facility] [id number] [address] [place] [address] Aug, [facility] [address] [facility] [id number] [address] [place] [address] Aug, 2014 [facility] [address] [id number] [address] [place] [address], [place] [address] Aug, 2014 [facility] [address] [id number] [address] [place] [address], [place] [address] Aug, 2014 [facility] [address] [id number] [address] [place] [address], [place] [address] Aug, [facility] [address] [id number] [address] [place] [address], [place] [address] Aug, [facility] [address] [id number] [address] [place] [address], [place] [address] Jul, [facility] [address] [id number] [address] [place] [address], [place] [address] Jul, [facility] [address] [id number] [address] [place] [address], [place] [address] Jul, [facility] [address] [id number] [address] [place] [address], [place] [address] Jul, [facility] [address] [id number] [address] [place] [address], [place] [address] Jul, [facility] [address] [id number] [address] [place] [address], [place] [address] Jul, [facility] [address] [id number] [address] [place] [address], [place] [address] Jun, [facility] [address] [id number] [address] [place] [address], [place] [address] Jun, [facility] [address] [id number] [address] [place] [address], [place] [address] Jun, [facility] [address] [id number] [address] [place] [address], [place] [address] Jun, [facility] [address] [id number] [address] [place] [address], [place] [address] Jun, [facility] [address] [id number] [address] [place] [address], [place] [address] Jun, [facility] [address] [id number] [address] [place] [address], [place] [address] May, [facility] [address] [id number] [address] [place] [address], [place] [address] May, [facility] [address] [id number] [address] [place] [address], [place] [address] May, [facility] [address] [id number] [address] [place] [address], [place] [address] May, [facility] [address] [id number] [address] [place] [address], [place] [address] May, [facility] [address] [id number] [address] [place] [address], [place] [address] May, [facility] [address] [id number] [address] [place] [address], [place] [address] May, [facility] [address] [id number] [address] [place] [address], [place] [address] May, [facility] [address] [id number] [address] [place] [address], [place] [address] May, [facility] [address] [id number] [address] [place] [address], [place] [address] May, [facility] [address] [id number] [address] [place] [address], [place] [address] Apr, [facility] [address] [id number] [address] [place] [address], [place] [address] Apr, [facility] [address] [id number] [address] [place] [address], [place] [address] Apr, [facility] [address] [id number] [address] [place] [address], [place] [address] Apr, [facility] [address] [id number] [address] [place] [address], [place] [address] Apr, [facility] [address] [id number] [address] [place] [address], [place] [address] Apr, [facility] [address] [id number] [address] [place] [address], [place] [address] Apr, [facility] [address] [id number] [address] [place] [address], [place] [address] Apr, [facility] [address] [id number] [address] [place] [address], [place] [address] Mar, [facility] [address] [id number] [address] [place] [address], [place] [address] 15 Mar, 2014 [facility] [address] [id number] [address] [place] [address], [place] [address] Mar, [facility] [address] [id number] [address] [place] [address], [place] [address] Mar, [facility] [address] [id number] [address] [place] [address], [place] [address] Mar, [facility] [address] [id number] [address] [place] [address], [place] [address] Mar, [facility] [address] [id number] [address] [place] [address], [place] [address] Feb, [facility] [address] [id number] [address] [place] [address], [place] [address] Feb, [facility] [address] [id number] [address] [place] [address], [place] [address] Feb, [facility] [address] [id number] [address] [place] [address], [place] [address] Feb, [facility] [address] [id number] [address] [place] [address], [place] [address] Feb, [facility] [address] [id number] [address] [place] [address], [place] [address] Feb, [facility] [address] [id number] [facility] [address] Jan, [facility] [address] [id number] [facility] [address] Jan, [facility] [address] [id number] [facility] [address] Jan, [facility] [address] [id number] [facility] [address] Jan, [facility] [address] [id number] [facility] [address] Jan, [facility] [address] [id number] [address] [place] [address], [place] [address] Jan, [facility] [address] [id number] [address] [place] [address], [place] [address] Dec, [facility] [address] [id number] [address] [place] [address], [place] [address] Dec, [facility] [address] [id number] [address] [place] [address], [place] [address] Dec, [facility] [address] [id number] [address] [place] [address], [place] [address] Dec, [facility] [address] [id number] [address] [place] [address], [place] [address] Dec, [facility] [address] [id number] [address] [place] [address], [place] [address] November, [facility] [address] [id number] [address] [place] [address], [place] [address] November, [facility] [address] [id number] [address] [place] [address], [place] [address] November, [facility] [address] [id number] [address] [place] [address], [place] [address] November, [facility] [address] [id number] [address] [place] [address], [place] [address] November, [facility] [address] [id number] [address] [place] [address], [place] [address] November, [facility] [address] [id number] [address] [place] [address], [place] [address] November, [facility] [address] [id number] [address] [place] [address], [place] [address] November, [facility] [address] [id number] [address] [place] [address], [place] [address] Oct, [facility] [address] [id number] [address] [place] [address], [place] [address] Oct, [facility] [address] [id number] [address] [place] [address], [place] [address] Oct, [facility] [address] [id number] [address] [place] [address], [place] [address] Oct, [facility] [address] [id number] [address] [place] [address], [place] [address] Oct, [facility] [address] [id number] [address] [place] [address], [place] [address] Oct, [facility] [address] [id number] [address] [place] [address], [place] [address] Sep, [facility] [address] [id number] [address] [place] [address], [place] [address] Sep, [facility] [address] [id number] [address] [place] [address], [place] [address] Sep, [facility] [address] [id number] [address] [place] [address], [place] [address] Sep, [facility] [address] [id number] [address] [place] [address], [place] [address] Sep, [facility] [address] [id number] [address] [place] [address], [place] [address] Sep, [facility] [address] [id number] [address] [place] [address], [place] [address] 03 Aug, 2013 [facility] [address] [id number] [address] [place] [address], [place] [address] Aug, [facility] [address] [id number] [address] [place] [address], [place] [address] Jul, [facility] [address] [id number] [address] [place] [address], [place] [address] Jul, [facility] [address] [id number] [address] [place] [address], [place] [address] Jul, [facility] [address] [id number] [address] [place] [address], [place] [address] Jul, [facility] [address] [id number] [address] [place] [address], [place] [address] Jul, [facility] [address] [id number] [address] [place] [address], [place] [address] Jul, [facility] [address] [id number] [address] [place] [address], [place] [address] Jul, [facility] [address] [id number] [address] [place] [address], [place] [address] Jul, [facility] [address] [id number] [address] [place] [address], [place] [address] Jul, [facility] [address] [id number] [address] [place] [address], [place] [address] Jul, [facility] [address] [id number] [address] [place] [address], [place] [address] Jul, [facility] [address] [id number] [address] [place] [address], [place] [address] Jul, [facility] [address] [id number] [address] [place] [address], [place] [address] Jun, [facility] [address] [id number] [address] [place] [address], [place] [address] Jun, [facility] [address] [id number] [address] [place] [address], [place] [address] Jun, [facility] [address] [id number] [address] [place] [address], [place] [address] Jun, [facility] [address] [id number] [address] [place] [address], [place] [address] Jun, [facility] [address] [id number] [address] [place] [address], [place] [address] Jun, [facility] [address] [id number] [address] [place] [address], [place] [address] Jun, [facility] [address] [id number] [address] [place] [address], [place] [address] Jun, [facility] [address] [id number] [address] [place] [address], [place] [address] May, [facility] [address] [id number] [address] [place] [address], [place] [address] May, [facility] [address] [id number] [address] [place] [address], [place] [address] May, [facility] [address] [id number] [address] [place] [address], [place] [address] May, [facility] [address] [id number] [address] [place] [address], [place] [address] Apr, [facility] [address] [id number] [address] [place] [address], [place] [address] Apr, [facility] [address] [id number] [address] [place] [address], [place] [address] Apr, [facility] [address] [id number] [address] [place] [address], [place] [address] Mar, [facility] [address] [id number] [address] [place] [address], [place] [address] Feb, [facility] [address] [id number] [address] [place] [address], [place] [address] Jan, [facility] [address] [facility] [id number] [address] [address] Jan, [facility] [address] [facility] [id number] [address] [place] [address] Jan, IMMUNIZATIONS No Known Immunizations SOCIAL HISTORY Never Assessed REASON FOR VISIT PLAN OF CARE VITAL SIGNS MEDICATIONS Unknown Medications RESULTS No Results PROCEDURES No Known procedures INSTRUCTIONS MEDICATIONS ADMINISTERED No Known Medications MEDICAL (GENERAL) HISTORY Type Description Date Hospitalization History UTI 12/04/2015
--- OUTSIDE RECORDS SUMMARY | 2020-01-12 11:31 | XMS REPORT ---
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 Active 66068877 Problem Depressive disorder, not elsewhere classified 311 Active 07720032 Problem Generalized anxiety disorder 300.02 A ctive 91531773 Problem Major depression F32.9 Active 370 435756 Problem Essential hypertension, benign 401.1 Active 8343582 Problem Generalized anxiety disorder F41.1 A ctive 01551758 Problem Pain in joint, lower leg 719.46 Activ e 176444029 Problem Anxiety state, unspecified 300.00 Act disha 566380218 Problem Other and unspecified hyperlipidemia 272.4 Active 15998914 Problem Major depressive disorder, recurrent episode, moderate 296 .32 Active 80067019 Problem Attention deficit hyperactivity disorder F90.9 Active [id number] ALLERGIES No Information ENCOUNTERS Encounter Location Date Diagnosis [facility] [address] [facility] [id number] [address] [place] [phone] Jun, [facility] [address] [facility] [id number] [address] [place] [phone] May, Generalized anxiety disorder F41.1 ; Major depression F32.9 and Attention deficit hyperactivity disorder F90.9 [facility] [address] [facility] [id number] [address] [place] [phone] Feb, [facility] [address] [facility] [id number] [address] [place] [phone] Jan, [facility] [address] [facility] [id number] [address] [place] [phone] Dec, [facility] [address] [place] [id number] [address] [place] [phone] Dec, [facility] [address] [facility] [id number] [address] [place] [phone] Dec, Generalized anxiety disorder F41.1 ; Major depression F32.9 and Attention deficit hyperactivity disorder F90.9 [facility] [address] [id number] [address] [place] [phone] Oct, [facility] [address] [facility] [id number] [address] [place] [phone] Oct, [facility] [address] [facility] [id number] [address] [place] [phone] Sep, [facility] [address] [facility] [id number] [address] [place] [phone] Sep, [facility] [address] [facility] [id number] [address] [place] [phone] Aug, [facility] [address] [facility] [id number] [address] [place] [phone] Aug, Generalized anxiety disorder F41.1 ; Major depression F32.9 and Attention deficit hyperactivity disorder F90.9 [facility] [address] [facility] [id number] [address] [place] [phone] Aug, [facility] [address] [facility] [id number] [address] [place] [phone] Aug, [facility] [address] [facility] [id number] [address] [place] [phone] Jun, [facility] [address] [facility] [id number] [address] [place] [phone] Jun, [facility] [address] [facility] [id number] [address] [place] [phone] Jun, Attention deficit hyperactiv ity disorder F90.9 ; Generalized anxiety disorder F41.1 and Major depression F32.9 [facility] [address] [facility] [id number] [address] [place] [phone] Jun, [facility] [address] [id number] [address] [place] [phone] Apr, [facility] [address] [facility] [id number] [address] [place] [phone] Mar, [facility] [address] [facility] [id number] [address] [place] [phone] Mar, [facility] [address] [id number] [address] [place] [phone] Feb, ADD (attention deficit disor nerissa) 314.00 ; Major depressive disorder, recurrent episode, moderate 296.32 and Generalized anxiety disorder 300.02 [facility] [address] [id number] [address] [place] [phone] Feb, [facility] [address] [facility] [id number] [address] [place] [phone] Feb, [facility] [address] [facility] [id number] [address] [place] [phone] Jan, [facility] [address] [facility] [id number] [address] [place] [phone] Jan, [facility] [address] [facility] [id number] [address] [place] [phone] Jan, [facility] [address] [facility] [id number] [address] [place] [phone] Jan, [facility] [address] [facility] [id number] [address] [place] [phone] Dec, [facility] [address] [id number] [address] [place] [phone] Dec, [facility] [address] [facility] [id number] [address] [place] [phone] Dec, [facility] [address] [facility] [id number] [address] [place] [phone] November, Attention deficit disorder o f childhood 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 314.00 ; Generalized anxiety disorder 300.02 and Major depressive disorder, recurrent episode, moderate 296.32 [facility] [address] [id number] [address] [place] [phone] November, [facility] [address] [id number] [address] [place] [phone] November, [facility] [address] [id number] [address] [place] [phone] November, Anxiety state 300.00 [facility] [address] [id number] [address] [place] [phone] Oct, [facility] [address] [id number] [address] [place] [phone] Oct, [facility] [address] [facility] [id number] [address] [place] [phone] Sep, [facility] [address] [id number] [address] [place] [phone] Sep, [facility] [address] [id number] [address] [place] [phone] Sep, [facility] [address] [facility] [id number] [address] [place] [phone] Sep, [facility] [address] [facility] [id number] [address] [place] [phone] Sep, [facility] [address] [id number] [address] [place] [phone] Sep, [facility] [address] [id number] [address] [place] [phone] Aug, [facility] [address] [id number] [address] [place] [phone] Aug, [facility] [address] [facility] [id number] [address] [place] [phone] Aug, [facility] [address] [facility] [id number] [address] [place] [phone] Aug, 2014 [facility] [address] [id number] [address] [place] [address], [place] [phone] Aug, 2014 [facility] [address] [id number] [address] [place] [address], [place] [address] Aug, 2014 [facility] [address] [id number] [address] [place] [address], [place] [address] Aug, [facility] [address] [id number] [address] [place] [address], [place] [phone] Aug, [facility] [address] [id number] [address] [place] [address], [place] [address] Jul, [facility] [address] [id number] [address] [place] [address], [place] [address] Jul, [facility] [address] [id number] [address] [place] [address], [place] [phone] Jul, [facility] [address] [id number] [address] [place] [address], [place] [address] Jul, [facility] [address] [id number] [address] [place] [address], [place] [phone] Jul, [facility] [address] [id number] [address] [place] [address], [place] [address] Jul, [facility] [address] [id number] [address] [place] [address], [place] [address] Jun, [facility] [address] [id number] [address] [place] [address], [place] [address] Jun, [facility] [address] [id number] [address] [place] [address], [place] [address] Jun, [facility] [address] [id number] [address] [place] [address], [place] [address] Jun, [facility] [address] [id number] [address] [place] [address], [place] [address] Jun, [facility] [address] [id number] [address] [place] [address], [place] [address] Jun, [facility] [address] [id number] [address] [place] [address], [place] [address] May, [facility] [address] [id number] [address] [place] [address], [place] [address] May, [facility] [address] [id number] [address] [place] [address], [place] [address] May, [facility] [address] [id number] [address] [place] [address], [place] [address] May, [facility] [address] [id number] [address] [place] [address], [place] [address] May, [facility] [address] [id number] [address] [place] [address], [place] [address] May, [facility] [address] [id number] [address] [place] [address], [place] [address] May, [facility] [address] [id number] [address] [place] [address], [place] [address] May, [facility] [address] [id number] [address] [place] [address], [place] [address] May, [facility] [address] [id number] [address] [place] [address], [place] [address] May, [facility] [address] [id number] [address] [place] [address], [place] [address] Apr, [facility] [address] [id number] [address] [place] [address], [place] [address] Apr, [facility] [address] [id number] [address] [place] [address], [place] [phone] Apr, [facility] [address] [id number] [address] [place] [address], [place] [address] Apr, [facility] [address] [id number] [address] [place] [address], [place] [address] Apr, [facility] [address] [id number] [address] [place] [address], [place] [address] Apr, [facility] [address] [id number] [address] [place] [address], [place] [address] Apr, [facility] [address] [id number] [address] [place] [address], [place] [address] Apr, [facility] [address] [id number] [address] [place] [address], [place] [address] Mar, [facility] [address] [id number] [address] [place] [address], [place] [address] 15 Mar, 2014 [facility] [address] [id number] [address] [place] [address], [place] [address] Mar, [facility] [address] [id number] [address] [place] [address], [place] [address] Mar, [facility] [address] [id number] [address] [place] [address], [place] [address] Mar, [facility] [address] [id number] [address] [place] [address], [place] [address] Mar, [facility] [address] [id number] [address] [place] [address], [place] [address] Feb, [facility] [address] [id number] [address] [place] [address], [place] [address] Feb, [facility] [address] [id number] [address] [place] [address], [place] [address] Feb, [facility] [address] [id number] [address] [place] [address], [place] [address] Feb, [facility] [address] [id number] [address] [place] [address], [place] [address] Feb, [facility] [address] [id number] [address] [place] [address], [place] [address] Feb, [facility] [address] [id number] [facility] [place] [address] Jan, [facility] [address] [id number] [facility] [place] [address] Jan, [facility] [address] [id number] [facility] [place] [address] Jan, [facility] [address] [id number] [facility] [place] [address] Jan, [facility] [address] [id number] [facility] [place] [address] Jan, [facility] [address] [id number] [address] [place] [address], [place] [address] Jan, [facility] [address] [id number] [address] [place] [address], [place] [address] Dec, [facility] [address] [id number] [address] [place] [address], [place] [address] Dec, [facility] [address] [id number] [address] [place] [address], [place] [address] Dec, [facility] [address] [id number] [address] [place] [address], [place] [address] Dec, [facility] [address] [id number] [address] [place] [address], [place] [address] Dec, [facility] [address] [id number] [address] [place] [address], [place] [address] November, [facility] [address] [id number] [address] [place] [address], [place] [address] November, [facility] [address] [id number] [address] [place] [address], [place] [address] November, [facility] [address] [id number] [address] [place] [address], [place] [address] November, [facility] [address] [id number] [address] [place] [address], [place] [address] November, [facility] [address] [id number] [address] [place] [address], [place] [address] November, [facility] [address] [id number] [address] [place] [address], [place] [address] November, [facility] [address] [id number] [address] [place] [address], [place] [address] November, [facility] [address] [id number] [address] [place] [address], [place] [address] Oct, [facility] [address] [id number] [address] [place] [address], [place] [address] Oct, [facility] [address] [id number] [address] [place] [address], [place] [address] Oct, [facility] [address] [id number] [address] [place] [address], [place] [address] Oct, [facility] [address] [id number] [address] [place] [address], [place] [address] Oct, [facility] [address] [id number] [address] [place] [address], [place] [address] Oct, [facility] [address] [id number] [address] [place] [address], [place] [address] Sep, [facility] [address] [id number] [address] [place] [address], [place] [address] Sep, [facility] [address] [id number] [address] [place] [address], [place] [address] Sep, [facility] [address] [id number] [address] [place] [address], [place] [address] Sep, [facility] [address] [id number] [address] [place] [address], [place] [address] Sep, [facility] [address] [id number] [address] [place] [address], [place] [address] Sep, [facility] [address] [id number] [address] [place] [address], [place] [address] 03 Aug, 2013 [facility] [address] [id number] [address] [place] [address], [place] [address] Aug, [facility] [address] [id number] [address] [place] [address], [place] [address] Jul, [facility] [address] [id number] [address] [place] [address], [place] [address] Jul, [facility] [address] [id number] [address] [place] [address], [place] [address] Jul, [facility] [address] [id number] [address] [place] [address], [place] [address] Jul, [facility] [address] [id number] [address] [place] [address], [place] [address] Jul, [facility] [address] [id number] [address] [place] [address], [place] [address] Jul, [facility] [address] [id number] [address] [place] [address], [place] [address] Jul, [facility] [address] [id number] [address] [place] [address], [place] [address] Jul, [facility] [address] [id number] [address] [place] [address], [place] [address] Jul, [facility] [address] [id number] [address] [place] [address], [place] [address] Jul, [facility] [address] [id number] [address] [place] [address], [place] [address] Jul, [facility] [address] [id number] [address] [place] [address], [place] [address] Jul, [facility] [address] [id number] [address] [place] [address], [place] [id number] Jun, [facility] [address] [id number] [address] [place] [address], [place] [id number] Jun, [facility] [address] [id number] [address] [place] [address], [place] [id number] Jun, [facility] [address] [id number] [address] [place] [address], [place] [id number] Jun, [facility] [address] [id number] [address] [place] [address], [place] [id number] Jun, [facility] [address] [id number] [address] [place] [address], [place] [id number] Jun, [facility] [address] [id number] [address] [place] [address], [place] [id number] Jun, [facility] [address] [id number] [address] [place] [address], [place] [id number] Jun, [facility] [address] [id number] [address] [place] [address], [place] [phone] May, [facility] [address] [id number] [address] [place] [address], [place] [phone] May, [facility] [address] [id number] [address] [place] [address], [place] [id number] May, [facility] [address] [id number] [address] [place] [address], [place] [id number] May, [facility] [address] [id number] [address] [place] [address], [place] [phone] Apr, [facility] [address] [id number] [address] [place] [address], [place] [id number] Apr, [facility] [address] [id number] [address] [place] [address], [place] [id number] Apr, [facility] [address] [id number] [address] [place] [address], [place] [phone] Mar, [facility] [address] [id number] [address] [place] [address], [place] [id number] Feb, [facility] [address] [id number] [address] [place] [address], [place] [id number] Jan, [facility] [address] [facility] [id number] [address] [address] Jan, [facility] [address] [facility] [id number] [address] [address] Jan, IMMUNIZATIONS No Known Immunizations SOCIAL HISTORY Never Assessed REASON FOR VISIT PLAN OF CARE VITAL SIGNS MEDICATIONS Unknown Medications RESULTS No Results PROCEDURES No Known procedures INSTRUCTIONS MEDICATIONS ADMINISTERED No Known Medications MEDICAL (GENERAL) HISTORY Type Description Date Hospitalization History UTI 12/04/2015
--- OUTSIDE RECORDS SUMMARY | 2020-01-12 11:31 | XMS REPORT ---
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 Active 64432806 Problem Depressive disorder, not elsewhere classified 311 Active 81208868 Problem Generalized anxiety disorder 300.02 A ctive 90926423 Problem Major depression F32.9 Active 370 544238 Problem Essential hypertension, benign 401.1 Active 5366443 Problem Generalized anxiety disorder F41.1 A ctive 72124885 Problem Pain in joint, lower leg 719.46 Activ e 708606427 Problem Anxiety state, unspecified 300.00 Act disha 181366647 Problem Other and unspecified hyperlipidemia 272.4 Active 87008384 Problem Major depressive disorder, recurrent episode, moderate 296 .32 Active 67448611 Problem Attention deficit hyperactivity disorder F90.9 Active [id number] ALLERGIES No Information ENCOUNTERS Encounter Location Date Diagnosis [facility] [address] [facility] [id number] [address] [place] [phone] Jun, [facility] [address] [facility] [id number] [address] [place] [phone] May, Generalized anxiety disorder F41.1 ; Major depression F32.9 and Attention deficit hyperactivity disorder F90.9 [facility] [address] [facility] [id number] [address] [place] [phone] Feb, [facility] [address] [facility] [id number] [address] [place] [phone] Jan, [facility] [address] [facility] [id number] [address] [place] [phone] Dec, [facility] [address] [facility] [id number] [address] [place] [address] Dec, [facility] [address] [id number] [address] [place] [address] Dec, Generalized anxiety disorder F41.1 ; Major depression F32.9 and Attention deficit hyperactivity disorder F90.9 [facility] [address] [id number] [address] [place] [phone] Oct, [facility] [address] [id number] [address] [place] [phone] Oct, [facility] [address] [facility] [id number] [address] [place] [phone] Sep, [facility] [address] [facility] [id number] [address] [place] [phone] Sep, [facility] [address] [facility] [id number] [address] [place] [phone] Aug, [facility] [address] [facility] [id number] [address] [place] [phone] Aug, Generalized anxiety disorder F41.1 ; Major depression F32.9 and Attention deficit hyperactivity disorder F90.9 [facility] [address] [facility] [id number] [address] [place] [phone] Aug, [facility] [address] [facility] [id number] [address] [place] [phone] Aug, [facility] [address] [facility] [id number] [address] [place] [address] Jun, [facility] [address] [facility] [id number] [address] [place] [phone] Jun, [facility] [address] [facility] [id number] [address] [place] [phone] Jun, Attention deficit hyperactiv ity disorder F90.9 ; Generalized anxiety disorder F41.1 and Major depression F32.9 [facility] [address] [facility] [id number] [address] [place] [address] Jun, [facility] [address] [id number] [address] [place] [address] Apr, [facility] [address] [id number] [address] [place] [phone] Mar, [facility] [address] [facility] [id number] [address] [place] [phone] Mar, [facility] [address] [id number] [address] [place] [address] Feb, ADD (attention deficit disor nerissa) 314.00 ; Major depressive disorder, recurrent episode, moderate 296.32 and Generalized anxiety disorder 300.02 [facility] [address] [id number] [address] [place] [phone] Feb, [facility] [address] [facility] [id number] [address] [place] [phone] Feb, [facility] [address] [facility] [id number] [address] [place] [phone] Jan, [facility] [address] [id number] [address] [place] [phone] Jan, [facility] [address] [facility] [id number] [address] [place] [phone] Jan, [facility] [address] [facility] [id number] [address] [place] [phone] Jan, [facility] [address] [facility] [id number] [address] [place] [phone] Dec, [facility] [address] [id number] [address] [place] [phone] Dec, [facility] [address] [facility] [id number] [address] [place] [phone] Dec, [facility] [address] [facility] [id number] [address] [place] [address] November, Attention deficit disorder o f childhood 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 314.00 ; Generalized anxiety disorder 300.02 and Major depressive disorder, recurrent episode, moderate 296.32 [facility] [address] [id number] [address] [place] [address] November, [facility] [address] [id number] [address] [place] [phone] November, [facility] [address] [id number] [address] [place] [address] November, Anxiety state 300.00 [facility] [address] [id number] [address] [place] [phone] Oct, [facility] [address] [id number] [address] [place] [phone] Oct, [facility] [address] [id number] [address] [place] [phone] Sep, [facility] [address] [id number] [address] [place] [phone] Sep, [facility] [address] [id number] [address] [place] [phone] Sep, [facility] [address] [id number] [address] [place] [phone] Sep, [facility] [address] [facility] [id number] [address] [place] [phone] Sep, [facility] [address] [id number] [address] [place] [phone] Sep, [facility] [address] [id number] [address] [place] [phone] Aug, [facility] [address] [id number] [address] [place] [phone] Aug, [facility] [address] [id number] [address] [place] [phone] Aug, [facility] [address] [id number] [address] [place] [phone] Aug, [facility] [address] [id number] [address] [place] [address], [place] [address] Aug, [facility] [address] [id number] [address] [place] [address], [place] [address] Aug, 2014 [facility] [address] [id number] [address] [place] [address], [place] [address] Aug, [facility] [address] [id number] [address] [place] [address], [place] [address] Aug, [facility] [address] [id number] [address] [place] [address], [place] [address] Jul, [facility] [address] [id number] [address] [place] [address], [place] [address] Jul, [facility] [address] [id number] [address] [place] [address], [place] [address] Jul, [facility] [address] [id number] [address] [place] [address], [place] [address] Jul, [facility] [address] [id number] [address] [place] [address], [place] [address] Jul, [facility] [address] [id number] [address] [place] [address], [place] [address] Jul, [facility] [address] [id number] [address] [place] [address], [place] [address] Jun, [facility] [address] [id number] [address] [place] [phone] Jun, [facility] [address] [id number] [address] [place] [address], [place] [address] Jun, [facility] [address] [id number] [address] [place] [address], [place] [address] Jun, [facility] [address] [id number] [address] [place] [address], [place] [address] Jun, [facility] [address] [id number] [address] [place] [address], [place] [address] Jun, [facility] [address] [id number] [address] [place] [address], [place] [address] May, [facility] [address] [id number] [address] [place] [address], [place] [address] May, [facility] [address] [id number] [address] [place] [address], [place] [address] May, [facility] [address] [id number] [address] [place] [address], [place] [address] May, [facility] [address] [id number] [address] [place] [address], [place] [address] May, [facility] [address] [id number] [address] [place] [address], [place] [address] May, [facility] [address] [id number] [address] [place] [address], [place] [address] May, [facility] [address] [id number] [address] [place] [address], [place] [address] May, [facility] [address] [id number] [address] [place] [address], [place] [address] May, [facility] [address] [id number] [address] [place] [address], [place] [address] May, [facility] [address] [id number] [address] [place] [address], [place] [address] Apr, [facility] [address] [id number] [address] [place] [address], [place] [address] Apr, [facility] [address] [id number] [address] [place] [address], [place] [address] Apr, [facility] [address] [id number] [address] [place] [address], [place] [address] Apr, [facility] [address] [id number] [address] [place] [address], [place] [address] Apr, [facility] [address] [id number] [address] [place] [address], [place] [address] Apr, [facility] [address] [id number] [address] [place] [address], [place] [address] Apr, [facility] [address] [id number] [address] [place] [address], [place] [address] Apr, [facility] [address] [id number] [address] [place] [address], [place] [address] Mar, [facility] [address] [id number] [address] [place] [address], [place] [address] 15 Mar, 2014 [facility] [address] [id number] [address] [place] [address], [place] [address] Mar, [facility] [address] [id number] [address] [place] [address], [place] [address] Mar, [facility] [address] [id number] [address] [place] [address], [place] [address] Mar, [facility] [address] [id number] [address] [place] [address], [place] [address] Mar, [facility] [address] [id number] [address] [place] [address], [place] [address] Feb, [facility] [address] [id number] [address] [place] [address], [place] [address] Feb, [facility] [address] [id number] [address] [place] [address], [place] [address] Feb, [facility] [address] [id number] [address] [place] [address], [place] [address] Feb, [facility] [address] [id number] [address] [place] [address], [place] [address] Feb, [facility] [address] [id number] [address] [place] [address], [place] [address] Feb, [facility] [address] [id number] [facility] [place] [address] Jan, [facility] [address] [id number] [address] [place] [address], [place] [address] Jan, [facility] [address] [id number] [facility] [place] [address] Jan, [facility] [address] [id number] [address] [place] [address], [place] [address] Jan, [facility] [address] [id number] [address] [place] [address], [place] [address] Jan, [facility] [address] [id number] [address] [place] [address], [place] [address] Jan, [facility] [address] [id number] [address] [place] [address], [place] [address] Dec, [facility] [address] [id number] [address] [place] [address], [place] [address] Dec, [facility] [address] [id number] [address] [place] [address], [place] [address] Dec, [facility] [address] [id number] [address] [place] [address], [place] [address] Dec, [facility] [address] [id number] [address] [place] [address], [place] [address] Dec, [facility] [address] [id number] [address] [place] [address], [place] [address] November, [facility] [address] [id number] [address] [place] [address], [place] [address] November, [facility] [address] [id number] [address] [place] [address], [place] [address] November, [facility] [address] [id number] [address] [place] [address], [place] [address] November, [facility] [address] [id number] [address] [place] [address], [place] [address] November, [facility] [address] [id number] [address] [place] [address], [place] [address] November, [facility] [address] [id number] [address] [place] [address], [place] [address] November, [facility] [address] [id number] [address] [place] [address], [place] [address] November, [facility] [address] [id number] [address] [place] [address], [place] [address] Oct, [facility] [address] [id number] [address] [place] [address], [place] [address] Oct, [facility] [address] [id number] [address] [place] [address], [place] [address] Oct, [facility] [address] [id number] [address] [place] [address], [place] [address] Oct, [facility] [address] [id number] [address] [place] [address], [place] [address] Oct, [facility] [address] [id number] [address] [place] [address], [place] [address] Oct, [facility] [address] [id number] [address] [place] [address], [place] [address] Sep, [facility] [address] [id number] [address] [place] [address], [place] [address] Sep, [facility] [address] [id number] [address] [place] [address], [place] [address] Sep, [facility] [address] [id number] [address] [place] [address], [place] [address] Sep, [facility] [address] [id number] [address] [place] [address], [place] [address] Sep, [facility] [address] [id number] [address] [place] [address], [place] [address] Sep, [facility] [address] [id number] [address] [place] [address], [place] [address] Aug, [facility] [address] [id number] [address] [place] [address], [place] [address] Aug, [facility] [address] [id number] [address] [place] [address], [place] [address] Jul, [facility] [address] [id number] [address] [place] [address], [place] [address] Jul, [facility] [address] [id number] [address] [place] [address], [place] [address] Jul, [facility] [address] [id number] [address] [place] [address], [place] [address] Jul, [facility] [address] [id number] [address] [place] [address], [place] [address] Jul, [facility] [address] [id number] [address] [place] [address], [place] [address] Jul, [facility] [address] [id number] [address] [place] [address], [place] [address] Jul, [facility] [address] [id number] [address] [place] [address], [place] [address] Jul, [facility] [address] [id number] [address] [place] [address], [place] [address] Jul, [facility] [address] [id number] [address] [place] [address], [place] [address] Jul, [facility] [address] [id number] [address] [place] [address], [place] [address] Jul, [facility] [address] [id number] [address] [place] [address], [place] [address] Jul, [facility] [address] [id number] [address] [place] [address], [place] [address] Jun, [facility] [address] [id number] [address] [place] [address], [place] [address] Jun, [facility] [address] [id number] [address] [place] [address], [place] [address] 20 Jun, 2013 [facility] [address] [id number] [address] [place] [address], [place] [address] 20 Jun, [address] [facility] [address] [id number] [address] [place] [address], [place] [address] Jun, [facility] [address] [id number] [address] [place] [address], [place] [address] Jun, [facility] [address] [id number] [address] [place] [address], [place] [address] Jun, [facility] [address] [id number] [address] [place] [address], [place] [address] Jun, [facility] [address] [id number] [address] [place] [address], [place] [phone] 18 May, 2013 [facility] [address] [id number] [address] [place] [address], [place] [phone] 18 May, 2013 [facility] [address] [id number] [address] [place] [address], [place] [address] May, [facility] [address] [id number] [address] [place] [address], [place] [phone] May, [facility] [address] [id number] [address] [place] [address], [place] [phone] 10 Apr, 2013 [facility] [address] [id number] [address] [place] [address], [place] [phone] 10 Apr, 2013 [facility] [address] [id number] [address] [place] [address], [place] [address] 07 Apr, [address] [facility] [address] [id number] [address] [place] [address], [place] [phone] 10 Mar, 2013 [facility] [address] [id number] [address] [place] [address], [place] [id number] 09 Feb, 2013 [facility] [address] [id number] [address] [place] [address], [place] [phone] Jan, [facility] [address] [facility] [id number] [address] [place] [phone] Jan, [facility] [address] [facility] [id number] [address] [place] [phone] Jan, IMMUNIZATIONS No Known Immunizations SOCIAL HISTORY Never Assessed REASON FOR VISIT PLAN OF CARE VITAL SIGNS MEDICATIONS Unknown Medications RESULTS No Results PROCEDURES No Known procedures INSTRUCTIONS MEDICATIONS ADMINISTERED No Known Medications MEDICAL (GENERAL) HISTORY Type Description Date Hospitalization History UTI 12/04/2015
--- OUTSIDE RECORDS SUMMARY | 2020-01-12 11:31 | XMS REPORT ---
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 Active 05114580 Problem Depressive disorder, not elsewhere classified 311 Active 92380800 Problem Generalized anxiety disorder 300.02 A ctive 21863163 Problem Major depression F32.9 Active 370 653937 Problem Essential hypertension, benign 401.1 Active 8938140 Problem Generalized anxiety disorder F41.1 A ctive 03251325 Problem Pain in joint, lower leg 719.46 Activ e 072546635 Problem Anxiety state, unspecified 300.00 Act disha 110120132 Problem Other and unspecified hyperlipidemia 272.4 Active 78519119 Problem Major depressive disorder, recurrent episode, moderate 296 .32 Active 46728769 Problem Attention deficit hyperactivity disorder F90.9 Active [id number] ALLERGIES No Information ENCOUNTERS Encounter Location Date Diagnosis [facility] [address] [facility] [id number] [address] [place] [phone] Jun, [facility] [address] [place] [id number] [address] [place] [phone] May, Generalized anxiety disorder F41.1 ; Major depression F32.9 and Attention deficit hyperactivity disorder F90.9 [facility] [address] [facility] [id number] [address] [place] [phone] Feb, [facility] [address] [facility] [id number] [address] [place] [phone] Jan, [facility] [address] [facility] [id number] [address] [place] [phone] Dec, [facility] [address] [facility] [id number] [address] [place] [phone] Dec, [facility] [address] [facility] [id number] [address] [place] [address] Dec, Generalized anxiety disorder F41.1 ; Major depression F32.9 and Attention deficit hyperactivity disorder F90.9 [facility] [address] [id number] [address] [place] [phone] Oct, [facility] [address] [facility] [id number] [address] [place] [phone] Oct, [facility] [address] [facility] [id number] [address] [place] [phone] Sep, [facility] [address] [facility] [id number] [address] [place] [phone] Sep, [facility] [address] [facility] [id number] [address] [place] [address] Aug, [facility] [address] [facility] [id number] [address] [place] [phone] Aug, Generalized anxiety disorder F41.1 ; Major depression F32.9 and Attention deficit hyperactivity disorder F90.9 [facility] [address] [facility] [id number] [address] [place] [phone] Aug, [facility] [address] [facility] [id number] [address] [place] [phone] Aug, [facility] [address] [facility] [id number] [address] [place] [phone] Jun, [facility] [address] [facility] [id number] [address] [place] [phone] Jun, [facility] [address] [facility] [id number] [address] [place] [phone] Jun, Attention deficit hyperactiv ity disorder F90.9 ; Generalized anxiety disorder F41.1 and Major depression F32.9 [facility] [address] [facility] [id number] [address] [place] [phone] Jun, [facility] [address] [id number] [address] [place] [phone] Apr, [facility] [address] [id number] [address] [place] [phone] Mar, [facility] [address] [id number] [address] [place] [phone] Mar, [facility] [address] [id number] [address] [place] [id number] Feb, ADD (attention deficit disor nerissa) 314.00 ; Major depressive disorder, recurrent episode, moderate 296.32 and Generalized anxiety disorder 300.02 [facility] [address] [id number] [address] [place] [phone] Feb, [facility] [address] [id number] [address] [place] [phone] Feb, [facility] [address] [facility] [id number] [address] [place] [phone] Jan, [facility] [address] [id number] [address] [place] [phone] Jan, [facility] [address] [facility] [id number] [address] [place] [phone] Jan, [facility] [address] [facility] [id number] [address] [place] [id number] Jan, [facility] [address] [id number] [address] [place] [phone] Dec, [facility] [address] [id number] [address] [place] [phone] Dec, [facility] [address] [id number] [address] [place] [phone] Dec, [facility] [address] [facility] [id number] [address] [place] [phone] November, Attention deficit disorder o f childhood 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 314.00 ; Generalized anxiety disorder 300.02 and Major depressive disorder, recurrent episode, moderate 296.32 [facility] [address] [id number] [address] [place] [address] November, [facility] [address] [id number] [address] [place] [address] November, [facility] [address] [id number] [address] [place] [address] November, Anxiety state 300.00 [facility] [address] [id number] [address] [place] [phone] Oct, [facility] [address] [id number] [address] [place] [address], [place] [address] Oct, [facility] [address] [id number] [address] [place] [phone] Sep, [facility] [address] [id number] [address] [place] [phone] Sep, [facility] [address] [id number] [address] [place] [phone] Sep, [facility] [address] [id number] [address] [place] [phone] Sep, [facility] [address] [id number] [address] [place] [phone] Sep, [facility] [address] [id number] [address] [place] [phone] Sep, [facility] [address] [id number] [address] [place] [phone] Aug, [facility] [address] [id number] [address] [place] [phone] Aug, [facility] [address] [id number] [address] [place] [phone] Aug, [facility] [address] [id number] [address] [place] [phone] Aug, [facility] [address] [id number] [address] [place] [address], [place] [address] Aug, 2014 [facility] [address] [id number] [address] [place] [address], [place] [address] Aug, 2014 [facility] [address] [id number] [address] [place] [address], [place] [address] Aug, [facility] [address] [id number] [address] [place] [address], [place] [address] Aug, [facility] [address] [id number] [address] [place] [address], [place] [address] Jul, [facility] [address] [id number] [address] [place] [address], [place] [address] Jul, [facility] [address] [id number] [address] [place] [address], [place] [address] Jul, [facility] [address] [id number] [address] [place] [address], [place] [address] Jul, [facility] [address] [id number] [address] [place] [address], [place] [address] Jul, [facility] [address] [id number] [address] [place] [address], [place] [address] Jul, [facility] [address] [id number] [address] [place] [address], [place] [address] Jun, [facility] [address] [id number] [address] [place] [address], [place] [address] Jun, [facility] [address] [id number] [address] [place] [address], [place] [address] Jun, [facility] [address] [id number] [address] [place] [address], [place] [address] Jun, [facility] [address] [id number] [address] [place] [address], [place] [address] Jun, [facility] [address] [id number] [address] [place] [address], [place] [address] Jun, [facility] [address] [id number] [address] [place] [address], [place] [address] May, [facility] [address] [id number] [address] [place] [address], [place] [address] May, [facility] [address] [id number] [address] [place] [address], [place] [address] May, [facility] [address] [id number] [address] [place] [address], [place] [address] May, [facility] [address] [id number] [address] [place] [address], [place] [address] May, [facility] [address] [id number] [address] [place] [address], [place] [address] May, [facility] [address] [id number] [address] [place] [address], [place] [address] May, [facility] [address] [id number] [address] [place] [address], [place] [address] May, [facility] [address] [id number] [address] [place] [address], [place] [address] May, [facility] [address] [id number] [address] [place] [address], [place] [address] May, [facility] [address] [id number] [address] [place] [address], [place] [address] Apr, [facility] [address] [id number] [address] [place] [address], [place] [address] Apr, [facility] [address] [id number] [address] [place] [address], [place] [address] Apr, [facility] [address] [id number] [address] [place] [address], [place] [address] Apr, [facility] [address] [id number] [address] [place] [address], [place] [address] 09 Apr, 2014 [facility] [address] [id number] [address] [place] [address], [place] [address] Apr, [facility] [address] [id number] [address] [place] [address], [place] [address] Apr, [facility] [address] [id number] [address] [place] [address], [place] [address] Apr, [facility] [address] [id number] [address] [place] [address], [place] [address] 15 Mar, 2014 [facility] [address] [id number] [address] [place] [address], [place] [address] 15 Mar, 2014 [facility] [address] [id number] [address] [place] [address], [place] [address] Mar, [facility] [address] [id number] [address] [place] [address], [place] [address] Mar, [facility] [address] [id number] [address] [place] [address], [place] [address] Mar, [facility] [address] [id number] [address] [place] [address], [place] [address] Mar, [facility] [address] [id number] [address] [place] [address], [place] [address] Feb, [facility] [address] [id number] [address] [place] [address], [place] [address] Feb, [facility] [address] [id number] [address] [place] [address], [place] [address] Feb, [facility] [address] [id number] [address] [place] [address], [place] [address] Feb, [facility] [address] [id number] [address] [place] [address], [place] [address] Feb, [facility] [address] [id number] [address] [place] [address], [place] [address] Feb, [facility] [address] [id number] [address] [place] [address], [place] [address] Jan, [facility] [address] [id number] [facility] [place] [address] Jan, [facility] [address] [id number] [facility] [place] [address] Jan, [facility] [address] [id number] [facility] [place] [address] Jan, [facility] [address] [id number] [facility] [place] [address] Jan, [facility] [address] [id number] [facility] [place] [address] Jan, [facility] [address] [id number] [address] [place] [address], [place] [address] Dec, [facility] [address] [id number] [address] [place] [address], [place] [address] Dec, [facility] [address] [id number] [address] [place] [address], [place] [address] Dec, [facility] [address] [id number] [address] [place] [address], [place] [address] Dec, [facility] [address] [id number] [address] [place] [address], [place] [address] Dec, [facility] [address] [id number] [address] [place] [address], [place] [address] November, [facility] [address] [id number] [address] [place] [address], [place] [address] November, [facility] [address] [id number] [address] [place] [address], [place] [address] November, [facility] [address] [id number] [address] [place] [address], [place] [address] November, [facility] [address] [id number] [address] [place] [address], [place] [address] November, [facility] [address] [id number] [address] [place] [address], [place] [address] November, [facility] [address] [id number] [address] [place] [address], [place] [address] November, [facility] [address] [id number] [address] [place] [address], [place] [address] November, [facility] [address] [id number] [address] [place] [address], [place] [address] Oct, [facility] [address] [id number] [address] [place] [address], [place] [address] Oct, [facility] [address] [id number] [address] [place] [address], [place] [address] Oct, [facility] [address] [id number] [address] [place] [address], [place] [address] Oct, [facility] [address] [id number] [address] [place] [address], [place] [address] Oct, [facility] [address] [id number] [address] [place] [address], [place] [address] Oct, [facility] [address] [id number] [address] [place] [address], [place] [address] Sep, [facility] [address] [id number] [address] [place] [address], [place] [address] Sep, [facility] [address] [id number] [address] [place] [address], [place] [address] Sep, [facility] [address] [id number] [address] [place] [address], [place] [address] Sep, [facility] [address] [id number] [address] [place] [address], [place] [address] Sep, [facility] [address] [id number] [address] [place] [address], [place] [address] Sep, [facility] [address] [id number] [address] [place] [address], [place] [address] Aug, [facility] [address] [id number] [address] [place] [address], [place] [address] Aug, [facility] [address] [id number] [address] [place] [address], [place] [address] Jul, [facility] [address] [id number] [address] [place] [address], [place] [address] Jul, [facility] [address] [id number] [address] [place] [address], [place] [address] Jul, [facility] [address] [id number] [address] [place] [address], [place] [address] Jul, [facility] [address] [id number] [address] [place] [address], [place] [address] Jul, [facility] [address] [id number] [address] [place] [address], [place] [address] Jul, [facility] [address] [id number] [address] [place] [address], [place] [address] Jul, [facility] [address] [id number] [address] [place] [address], [place] [address] Jul, [facility] [address] [id number] [address] [place] [address], [place] [address] Jul, [facility] [address] [id number] [address] [place] [address], [place] [address] Jul, [facility] [address] [id number] [address] [place] [address], [place] [address] Jul, [facility] [address] [id number] [address] [place] [address], [place] [address] Jul, [facility] [address] [id number] [address] [place] [address], [place] [address] Jun, [facility] [address] [id number] [address] [place] [address], [place] [address] Jun, [facility] [address] [id number] [address] [place] [address], [place] [address] Jun, [facility] [address] [id number] [address] [place] [address], [place] [address] Jun, [facility] [address] [id number] [address] [place] [address], [place] [address] Jun, [facility] [address] [id number] [address] [place] [address], [place] [address] Jun, [facility] [address] [id number] [address] [place] [address], [place] [address] Jun, [facility] [address] [id number] [address] [place] [address], [place] [address] Jun, [facility] [address] [id number] [address] [place] [address], [place] [address] May, [facility] [address] [id number] [address] [place] [address], [place] [address] May, [facility] [address] [id number] [address] [place] [address] May, [facility] [address] [id number] [address] [place] [address], [place] [address] May, [facility] [address] [id number] [address] [place] [address] Apr, [facility] [address] [id number] [address] [place] [address] Apr, [facility] [address] [id number] [address] [place] [id number] 07 Apr, 2013 [facility] [address] [id number] [address] [place] [phone] 10 Mar, 2013 [facility] [address] [id number] [address] [place] [phone] 09 Feb, 2013 [facility] [address] [id number] [address] [place] [phone] 15 Jan, 2013 [facility] [address] [id number] [address] [place] [id number] Jan, [facility] [address] [facility] [id number] [address] [place] [address] Jan, IMMUNIZATIONS No Known Immunizations SOCIAL HISTORY Never Assessed REASON FOR VISIT PLAN OF CARE VITAL SIGNS Height 69 in 2013-05-22 Weight 175.25 lbs 2013-05-22 Temperature 98.5 degrees Fahrenheit 2013-05-22 Heart Rate 100 bpm 2013-05-22 Respiratory Rate 24 2013-05-22 Blood pressure systolic 162 mmHg 2013-05-22 Blood pressure diastolic 102 mmHg 2013-05-22 MEDICATIONS Unknown Medications RESULTS No Results PROCEDURES No Known procedures INSTRUCTIONS MEDICATIONS ADMINISTERED No Known Medications MEDICAL (GENERAL) HISTORY Type Description Date Hospitalization History UTI 12/04/2015
--- OUTSIDE RECORDS SUMMARY | 2020-01-12 11:31 | XMS REPORT ---
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 Active 46817891 Problem Depressive disorder, not elsewhere classified 311 Active 64489738 Problem Generalized anxiety disorder 300.02 A ctive 98546147 Problem Major depression F32.9 Active 370 150974 Problem Essential hypertension, benign 401.1 Active 6279623 Problem Generalized anxiety disorder F41.1 A ctive 02018481 Problem Pain in joint, lower leg 719.46 Activ e 498921690 Problem Anxiety state, unspecified 300.00 Act disha 326988859 Problem Other and unspecified hyperlipidemia 272.4 Active 51723191 Problem Major depressive disorder, recurrent episode, moderate 296 .32 Active 66360111 Problem Attention deficit hyperactivity disorder F90.9 Active [id number] ALLERGIES No Information ENCOUNTERS Encounter Location Date Diagnosis [facility] [address] [facility] [id number] [address] [place] [address] Jun, [facility] [address] [facility] [id number] [address] [place] [address] May, Generalized anxiety disorder F41.1 ; Major depression F32.9 and Attention deficit hyperactivity disorder F90.9 [facility] [address] [facility] [id number] [address] [place] [phone] Feb, [facility] [address] [facility] [id number] [address] [place] [phone] Jan, [facility] [address] [facility] [id number] [address] [place] [address] Dec, [facility] [address] [facility] [id number] [address] [place] [address] Dec, [facility] [address] [id number] [address] [place] [address] Dec, Generalized anxiety disorder F41.1 ; Major depression F32.9 and Attention deficit hyperactivity disorder F90.9 [facility] [address] [id number] [address] [place] [phone] Oct, [facility] [address] [id number] [address] [place] [phone] Oct, [facility] [address] [facility] [id number] [address] [place] [phone] Sep, [facility] [address] [facility] [id number] [address] [place] [phone] Sep, [facility] [address] [facility] [id number] [address] [place] [phone] Aug, [facility] [address] [facility] [id number] [address] [place] [address] Aug, Generalized anxiety disorder F41.1 ; Major depression F32.9 and Attention deficit hyperactivity disorder F90.9 [facility] [address] [facility] [id number] [address] [place] [phone] Aug, [facility] [address] [facility] [id number] [address] [place] [phone] Aug, [facility] [address] [facility] [id number] [address] [place] [phone] Jun, [facility] [address] [facility] [id number] [address] [place] [phone] Jun, [facility] [address] [facility] [id number] [address] [place] [phone] Jun, Attention deficit hyperactiv ity disorder F90.9 ; Generalized anxiety disorder F41.1 and Major depression F32.9 [facility] [address] [facility] [id number] [address] [place] [phone] Jun, [facility] [address] [id number] [address] [place] [phone] Apr, [facility] [address] [id number] [address] [place] [phone] Mar, [facility] [address] [facility] [id number] [address] [place] [address] Mar, [facility] [address] [id number] [address] [place] [phone] Feb, ADD (attention deficit disor nerissa) 314.00 ; Major depressive disorder, recurrent episode, moderate 296.32 and Generalized anxiety disorder 300.02 [facility] [address] [id number] [address] [place] [phone] Feb, [facility] [address] [facility] [id number] [address] [place] [phone] Feb, [facility] [address] [facility] [id number] [address] [place] [phone] Jan, [facility] [address] [id number] [address] [place] [phone] Jan, [facility] [address] [facility] [id number] [address] [place] [phone] Jan, [facility] [address] [facility] [id number] [address] [place] [phone] Jan, [facility] [address] [facility] [id number] [address] [place] [phone] Dec, [facility] [address] [id number] [address] [place] [phone] Dec, [facility] [address] [facility] [id number] [address] [place] [phone] Dec, [facility] [address] [facility] [id number] [address] [place] [phone] November, Attention deficit disorder o f childhood 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 314.00 ; Generalized anxiety disorder 300.02 and Major depressive disorder, recurrent episode, moderate 296.32 [facility] [address] [id number] [address] [place] [phone] November, [facility] [address] [id number] [address] [place] [phone] November, [facility] [address] [id number] [address] [place] [phone] November, Anxiety state 300.00 [facility] [address] [id number] [address] [place] [phone] Oct, [facility] [address] [id number] [address] [place] [phone] Oct, [facility] [address] [id number] [address] [place] [phone] Sep, [facility] [address] [id number] [address] [place] [phone] Sep, [facility] [address] [id number] [address] [place] [phone] Sep, [facility] [address] [id number] [address] [place] [phone] Sep, [facility] [address] [facility] [id number] [address] [place] [phone] Sep, [facility] [address] [id number] [address] [place] [phone] Sep, [facility] [address] [id number] [address] [place] [phone] Aug, [facility] [address] [id number] [address] [place] [phone] Aug, [facility] [address] [id number] [address] [place] [phone] Aug, [facility] [address] [id number] [address] [place] [phone] Aug, [facility] [address] [id number] [address] [place] [address], [place] [address] Aug, [facility] [address] [id number] [address] [place] [address], [place] [address] Aug, 2014 [facility] [address] [id number] [address] [place] [address], [place] [address] Aug, [facility] [address] [id number] [address] [place] [address], [place] [address] Aug, [facility] [address] [id number] [address] [place] [address], [place] [address] Jul, [facility] [address] [id number] [address] [place] [address], [place] [address] Jul, [facility] [address] [id number] [address] [place] [address], [place] [address] Jul, [facility] [address] [id number] [address] [place] [address], [place] [address] Jul, [facility] [address] [id number] [address] [place] [address], [place] [address] Jul, [facility] [address] [id number] [address] [place] [address], [place] [address] Jul, [facility] [address] [id number] [address] [place] [address], [place] [address] Jun, [facility] [address] [id number] [address] [place] [phone] Jun, [facility] [address] [id number] [address] [place] [address], [place] [address] Jun, [facility] [address] [id number] [address] [place] [address], [place] [address] Jun, [facility] [address] [id number] [address] [place] [address], [place] [address] Jun, [facility] [address] [id number] [address] [place] [address], [place] [address] Jun, [facility] [address] [id number] [address] [place] [address], [place] [address] May, [facility] [address] [id number] [address] [place] [address], [place] [address] May, [facility] [address] [id number] [address] [place] [address], [place] [address] May, [facility] [address] [id number] [address] [place] [address], [place] [address] May, [facility] [address] [id number] [address] [place] [address], [place] [address] May, [facility] [address] [id number] [address] [place] [address], [place] [address] May, [facility] [address] [id number] [address] [place] [address], [place] [address] May, [facility] [address] [id number] [address] [place] [address], [place] [address] May, [facility] [address] [id number] [address] [place] [address], [place] [address] May, [facility] [address] [id number] [address] [place] [address], [place] [address] May, [facility] [address] [id number] [address] [place] [address], [place] [address] Apr, [facility] [address] [id number] [address] [place] [address], [place] [address] Apr, [facility] [address] [id number] [address] [place] [address], [place] [address] Apr, [facility] [address] [id number] [address] [place] [address], [place] [address] Apr, [facility] [address] [id number] [address] [place] [address], [place] [address] Apr, [facility] [address] [id number] [address] [place] [address], [place] [address] Apr, [facility] [address] [id number] [address] [place] [address], [place] [address] Apr, [facility] [address] [id number] [address] [place] [address], [place] [address] Apr, [facility] [address] [id number] [address] [place] [address], [place] [address] Mar, [facility] [address] [id number] [address] [place] [address], [place] [address] 15 Mar, 2014 [facility] [address] [id number] [address] [place] [address], [place] [address] Mar, [facility] [address] [id number] [address] [place] [address], [place] [address] Mar, [facility] [address] [id number] [address] [place] [address], [place] [address] Mar, [facility] [address] [id number] [address] [place] [address], [place] [address] Mar, [facility] [address] [id number] [address] [place] [address], [place] [address] Feb, [facility] [address] [id number] [address] [place] [address], [place] [address] Feb, [facility] [address] [id number] [address] [place] [address], [place] [address] Feb, [facility] [address] [id number] [address] [place] [address], [place] [address] Feb, [facility] [address] [id number] [address] [place] [address], [place] [address] Feb, [facility] [address] [id number] [address] [place] [address], [place] [address] Feb, [facility] [address] [id number] [facility] [place] [address] Jan, [facility] [address] [id number] [address] [place] [address], [place] [address] Jan, [facility] [address] [id number] [facility] [place] [address] Jan, [facility] [address] [id number] [address] [place] [address], [place] [address] Jan, [facility] [address] [id number] [address] [place] [address], [place] [address] Jan, [facility] [address] [id number] [address] [place] [address], [place] [address] Jan, [facility] [address] [id number] [address] [place] [address], [place] [address] Dec, [facility] [address] [id number] [address] [place] [address], [place] [address] Dec, [facility] [address] [id number] [address] [place] [address], [place] [address] Dec, [facility] [address] [id number] [address] [place] [address], [place] [address] Dec, [facility] [address] [id number] [address] [place] [address], [place] [address] Dec, [facility] [address] [id number] [address] [place] [address], [place] [address] November, [facility] [address] [id number] [address] [place] [address], [place] [address] November, [facility] [address] [id number] [address] [place] [address], [place] [address] November, [facility] [address] [id number] [address] [place] [address], [place] [address] November, [facility] [address] [id number] [address] [place] [address], [place] [address] November, [facility] [address] [id number] [address] [place] [address], [place] [address] November, [facility] [address] [id number] [address] [place] [address], [place] [address] November, [facility] [address] [id number] [address] [place] [address], [place] [address] November, [facility] [address] [id number] [address] [place] [address], [place] [address] Oct, [facility] [address] [id number] [address] [place] [address], [place] [address] Oct, [facility] [address] [id number] [address] [place] [address], [place] [address] Oct, [facility] [address] [id number] [address] [place] [address], [place] [address] Oct, [facility] [address] [id number] [address] [place] [address], [place] [address] Oct, [facility] [address] [id number] [address] [place] [address], [place] [address] Oct, [facility] [address] [id number] [address] [place] [address], [place] [address] Sep, [facility] [address] [id number] [address] [place] [address], [place] [address] Sep, [facility] [address] [id number] [address] [place] [address], [place] [address] Sep, [facility] [address] [id number] [address] [place] [address], [place] [address] Sep, [facility] [address] [id number] [address] [place] [address], [place] [address] Sep, [facility] [address] [id number] [address] [place] [address], [place] [address] Sep, [facility] [address] [id number] [address] [place] [address], [place] [address] Aug, [facility] [address] [id number] [address] [place] [address], [place] [address] Aug, [facility] [address] [id number] [address] [place] [address], [place] [address] Jul, [facility] [address] [id number] [address] [place] [address], [place] [address] Jul, [facility] [address] [id number] [address] [place] [address], [place] [address] Jul, [facility] [address] [id number] [address] [place] [address], [place] [address] Jul, [facility] [address] [id number] [address] [place] [address], [place] [address] Jul, [facility] [address] [id number] [address] [place] [address], [place] [address] Jul, [facility] [address] [id number] [address] [place] [address], [place] [address] Jul, [facility] [address] [id number] [address] [place] [address], [place] [address] Jul, [facility] [address] [id number] [address] [place] [address], [place] [address] Jul, [facility] [address] [id number] [address] [place] [address], [place] [address] Jul, [facility] [address] [id number] [address] [place] [address], [place] [address] Jul, [facility] [address] [id number] [address] [place] [address], [place] [address] Jul, [facility] [address] [id number] [address] [place] [address], [place] [address] Jun, [facility] [address] [id number] [address] [place] [address], [place] [address] Jun, [facility] [address] [id number] [address] [place] [address], [place] [address] 20 Jun, 2013 [facility] [address] [id number] [address] [place] [address], [place] [address] 20 Jun, 2013 [facility] [address] [id number] [address] [place] [address], [place] [address] Jun, [facility] [address] [id number] [address] [place] [address], [place] [address] Jun, [facility] [address] [id number] [address] [place] [address], [place] [address] Jun, [facility] [address] [id number] [address] [place] [address], [place] [address] Jun, [facility] [address] [id number] [address] [place] [address], [place] [address] 18 May, 2013 [facility] [address] [id number] [address] [place] [address], [place] [address] 18 May, 2013 [facility] [address] [id number] [address] [place] [address], [place] [address] May, [facility] [address] [id number] [address] [place] [address], [place] [address] May, [facility] [address] [id number] [address] [place] [address], [place] [address] 10 Apr, 2013 [facility] [address] [id number] [address] [place] [address], [place] [address] 10 Apr, 2013 [facility] [address] [id number] [address] [place] [address], [place] [address] 07 Apr, 2013 [facility] [address] [id number] [address] [place] [address], [place] [address] 10 Mar, 2013 [facility] [address] [id number] [address] [place] [address], [place] [address] 09 Feb, 2013 [facility] [address] [id number] [address] [place] [address], [place] [address] Jan, [facility] [address] [facility] [id number] [address] [place] [id number] Jan, [facility] [address] [facility] [id number] [address] [place] [id number] Jan, IMMUNIZATIONS No Known Immunizations SOCIAL HISTORY Never Assessed REASON FOR VISIT PLAN OF CARE VITAL SIGNS MEDICATIONS Unknown Medications RESULTS No Results PROCEDURES No Known procedures INSTRUCTIONS MEDICATIONS ADMINISTERED No Known Medications MEDICAL (GENERAL) HISTORY Type Description Date Hospitalization History UTI 12/04/2015
--- OUTSIDE RECORDS SUMMARY | 2020-01-12 11:31 | XMS REPORT ---
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 Active 41304311 Problem Depressive disorder, not elsewhere classified 311 Active 89555520 Problem Generalized anxiety disorder 300.02 A ctive 77200321 Problem Major depression F32.9 Active 370 082941 Problem Essential hypertension, benign 401.1 Active 7740661 Problem Generalized anxiety disorder F41.1 A ctive 82864808 Problem Pain in joint, lower leg 719.46 Activ e 363925723 Problem Anxiety state, unspecified 300.00 Act disha 173592008 Problem Other and unspecified hyperlipidemia 272.4 Active 13944299 Problem Major depressive disorder, recurrent episode, moderate 296 .32 Active 11068001 Problem Attention deficit hyperactivity disorder F90.9 Active [id number] ALLERGIES No Information ENCOUNTERS Encounter Location Date Diagnosis [facility] [address] [facility] [id number] [address] [place] [phone] Jun, [facility] [address] [facility] [id number] [address] [place] [address] May, Generalized anxiety disorder F41.1 ; Major depression F32.9 and Attention deficit hyperactivity disorder F90.9 [facility] [address] [facility] [id number] [address] [place] [phone] Feb, [facility] [address] [facility] [id number] [address] [place] [phone] Jan, [facility] [address] [facility] [id number] [address] [place] [phone] Dec, [facility] [address] [facility] [id number] [address] [place] [phone] Dec, [facility] [address] [id number] [address] [place] [phone] Dec, Generalized anxiety disorder F41.1 ; Major depression F32.9 and Attention deficit hyperactivity disorder F90.9 [facility] [address] [id number] [address] [place] [phone] Oct, [facility] [address] [id number] [address] [place] [phone] Oct, [facility] [address] [facility] [id number] [address] [place] [phone] Sep, [facility] [address] [facility] [id number] [address] [place] [phone] Sep, [facility] [address] [facility] [id number] [address] [place] [phone] Aug, [facility] [address] [facility] [id number] [address] [place] [address] Aug, Generalized anxiety disorder F41.1 ; Major depression F32.9 and Attention deficit hyperactivity disorder F90.9 [facility] [address] [facility] [id number] [address] [place] [phone] Aug, [facility] [address] [facility] [id number] [address] [place] [phone] Aug, [facility] [address] [facility] [id number] [address] [place] [phone] Jun, [facility] [address] [facility] [id number] [address] [place] [phone] Jun, [facility] [address] [facility] [id number] [address] [place] [phone] Jun, Attention deficit hyperactiv ity disorder F90.9 ; Generalized anxiety disorder F41.1 and Major depression F32.9 [facility] [address] [facility] [id number] [address] [place] [phone] Jun, [facility] [address] [id number] [address] [place] [phone] Apr, [facility] [address] [id number] [address] [place] [phone] Mar, [facility] [address] [facility] [id number] [address] [place] [phone] Mar, [facility] [address] [id number] [address] [place] [phone] Feb, ADD (attention deficit disor nerissa) 314.00 ; Major depressive disorder, recurrent episode, moderate 296.32 and Generalized anxiety disorder 300.02 [facility] [address] [id number] [address] [place] [phone] Feb, [facility] [address] [facility] [id number] [address] [place] [phone] Feb, [facility] [address] [facility] [id number] [address] [place] [phone] Jan, [facility] [address] [id number] [address] [place] [phone] Jan, [facility] [address] [facility] [id number] [address] [place] [phone] Jan, [facility] [address] [facility] [id number] [address] [place] [phone] Jan, [facility] [address] [facility] [id number] [address] [place] [phone] Dec, [facility] [address] [id number] [address] [place] [phone] Dec, [facility] [address] [facility] [id number] [address] [place] [phone] Dec, [facility] [address] 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 ; Generalized anxiety disorder 300.02 and Major depressive disorder, recurrent episode, moderate 296.32 [facility] [address] [id number] [address] [place] [phone] November, [facility] [address] [id number] [address] [place] [phone] November, [facility] [address] [id number] [address] [place] [phone] November, Anxiety state 300.00 [facility] [address] [id number] [address] [place] [phone] Oct, [facility] [address] [id number] [address] [place] [phone] Oct, [facility] [address] [id number] [address] [place] [phone] Sep, [facility] [address] [id number] [address] [place] [phone] Sep, [facility] [address] [id number] [address] [place] [phone] Sep, [facility] [address] [id number] [address] [place] [phone] Sep, [facility] [address] [facility] [id number] [address] [place] [phone] Sep, [facility] [address] [id number] [address] [place] [phone] Sep, [facility] [address] [id number] [address] [place] [phone] Aug, [facility] [address] [id number] [address] [place] [phone] Aug, [facility] [address] [id number] [address] [place] [phone] Aug, [facility] [address] [id number] [address] [place] [phone] Aug, [facility] [address] [id number] [address] [place] [address], [place] [address] Aug, [facility] [address] [id number] [address] [place] [address], [place] [address] Aug, 2014 [facility] [address] [id number] [address] [place] [address], [place] [address] Aug, [facility] [address] [id number] [address] [place] [address], [place] [address] Aug, [facility] [address] [id number] [address] [place] [address], [place] [address] Jul, [facility] [address] [id number] [address] [place] [address], [place] [address] Jul, [facility] [place] [address] [id number] [address] [place] [address], [place] [address] Jul, [facility] [address] [id number] [address] [place] [address], [place] [address] Jul, [facility] [place] [address] [id number] [address] [place] [address], [place] [address] Jul, [facility] [address] [id number] [address] [place] [address], [place] [address] Jul, [facility] [place] [address] [id number] [address] [place] [address], [place] [address] Jun, [facility] [address] [id number] [address] [place] [phone] Jun, [facility] [address] [id number] [address] [place] [address], [place] [address] Jun, [facility] [address] [id number] [address] [place] [address], [place] [address] Jun, [facility] [address] [id number] [address] [place] [address], [place] [address] Jun, [facility] [address] [id number] [address] [place] [address], [place] [address] Jun, [facility] [address] [id number] [address] [place] [address], [place] [address] May, [facility] [address] [id number] [address] [place] [address], [place] [address] May, [facility] [address] [id number] [address] [place] [address], [place] [address] May, [facility] [address] [id number] [address] [place] [address], [place] [address] May, [facility] [address] [id number] [address] [place] [address], [place] [address] May, [facility] [address] [id number] [address] [place] [address], [place] [address] May, [facility] [address] [id number] [address] [place] [address], [place] [address] May, [facility] [address] [id number] [address] [place] [address], [place] [address] May, [facility] [address] [id number] [address] [place] [address], [place] [address] May, [facility] [address] [id number] [address] [place] [address], [place] [address] May, [facility] [address] [id number] [address] [place] [address], [place] [address] Apr, [facility] [address] [id number] [address] [place] [address], [place] [address] Apr, [facility] [address] [id number] [address] [place] [address], [place] [address] Apr, [facility] [address] [id number] [address] [place] [address], [place] [address] Apr, [facility] [address] [id number] [address] [place] [address], [place] [address] Apr, [facility] [address] [id number] [address] [place] [address], [place] [address] Apr, [facility] [address] [id number] [address] [place] [address], [place] [address] Apr, [facility] [address] [id number] [address] [place] [address], [place] [address] Apr, [facility] [address] [id number] [address] [place] [address], [place] [address] Mar, [facility] [address] [id number] [address] [place] [address], [place] [address] 15 Mar, 2014 [facility] [address] [id number] [address] [place] [address], [place] [address] Mar, [facility] [address] [id number] [address] [place] [address], [place] [address] Mar, [facility] [address] [id number] [address] [place] [address], [place] [address] Mar, [facility] [address] [id number] [address] [place] [address], [place] [address] Mar, [facility] [address] [id number] [address] [place] [address], [place] [address] Feb, [facility] [address] [id number] [address] [place] [address], [place] [address] Feb, [facility] [address] [id number] [address] [place] [address], [place] [address] Feb, [facility] [address] [id number] [address] [place] [address], [place] [address] Feb, [facility] [address] [id number] [address] [place] [address], [place] [address] Feb, [facility] [address] [id number] [address] [place] [address], [place] [address] Feb, [facility] [address] [id number] [facility] [place] [address] Jan, [facility] [address] [id number] [address] [place] [address], [place] [address] Jan, [facility] [address] [id number] [facility] [place] [address] Jan, [facility] [address] [id number] [address] [place] [address], [place] [address] Jan, [facility] [address] [id number] [address] [place] [address], [place] [address] Jan, [facility] [address] [id number] [address] [place] [address], [place] [address] Jan, [facility] [address] [id number] [address] [place] [address], [place] [address] Dec, [facility] [address] [id number] [address] [place] [address], [place] [address] Dec, [facility] [address] [id number] [address] [place] [address], [place] [address] Dec, [facility] [address] [id number] [address] [place] [address], [place] [address] Dec, [facility] [address] [id number] [address] [place] [address], [place] [address] Dec, [facility] [address] [id number] [address] [place] [address], [place] [address] November, [facility] [address] [id number] [address] [place] [address], [place] [address] November, [facility] [address] [id number] [address] [place] [address], [place] [address] November, [facility] [address] [id number] [address] [place] [address], [place] [address] November, [facility] [address] [id number] [address] [place] [address], [place] [address] November, [facility] [address] [id number] [address] [place] [address], [place] [address] November, [facility] [address] [id number] [address] [place] [address], [place] [address] November, [facility] [address] [id number] [address] [place] [address], [place] [address] November, [facility] [address] [id number] [address] [place] [address], [place] [address] Oct, [facility] [address] [id number] [address] [place] [address], [place] [address] Oct, [facility] [address] [id number] [address] [place] [address], [place] [address] Oct, [facility] [address] [id number] [address] [place] [address], [place] [address] Oct, [facility] [address] [id number] [address] [place] [address], [place] [address] Oct, [facility] [address] [id number] [address] [place] [address], [place] [address] Oct, [facility] [address] [id number] [address] [place] [address], [place] [address] Sep, [facility] [address] [id number] [address] [place] [address], [place] [address] Sep, [facility] [address] [id number] [address] [place] [address], [place] [address] Sep, [facility] [address] [id number] [address] [place] [address], [place] [address] Sep, [facility] [address] [id number] [address] [place] [address], [place] [address] Sep, [facility] [address] [id number] [address] [place] [address], [place] [address] Sep, [facility] [address] [id number] [address] [place] [address], [place] [address] Aug, [facility] [address] [id number] [address] [place] [address], [place] [address] Aug, [facility] [address] [id number] [address] [place] [address], [place] [address] Jul, [facility] [address] [id number] [address] [place] [address], [place] [address] Jul, [facility] [address] [id number] [address] [place] [address], [place] [address] Jul, [facility] [address] [id number] [address] [place] [address], [place] [address] Jul, [facility] [address] [id number] [address] [place] [address], [place] [address] Jul, [facility] [address] [id number] [address] [place] [address], [place] [address] Jul, [facility] [address] [id number] [address] [place] [address], [place] [address] Jul, [facility] [address] [id number] [address] [place] [address], [place] [address] Jul, [facility] [address] [id number] [address] [place] [address], [place] [address] Jul, [facility] [address] [id number] [address] [place] [address], [place] [address] Jul, [facility] [address] [id number] [address] [place] [address], [place] [address] Jul, [facility] [address] [id number] [address] [place] [address], [place] [address] Jul, [facility] [address] [id number] [address] [place] [address], [place] [address] Jun, [facility] [address] [id number] [address] [place] [address], [place] [address] Jun, [facility] [address] [id number] [address] [place] [address], [place] [address] 20 Jun, 2013 [facility] [address] [id number] [address] [place] [address], [place] [address] 20 Jun, 2013 [facility] [address] [id number] [address] [place] [address], [place] [address] Jun, [facility] [address] [id number] [address] [place] [address], [place] [address] Jun, [facility] [address] [id number] [address] [place] [address], [place] [address] Jun, [facility] [address] [id number] [address] [place] [address], [place] [address] Jun, [facility] [address] [id number] [address] [place] [address], [place] [address] 18 May, 2013 [facility] [address] [id number] [address] [place] [address], [place] [address] 18 May, 2013 [facility] [address] [id number] [address] [place] [address], [place] [address] May, [facility] [address] [id number] [address] [place] [address], [place] [address] May, [facility] [address] [id number] [address] [place] [address], [place] [address] 10 Apr, 2013 [facility] [address] [id number] [address] [place] [address], [place] [address] 10 Apr, 2013 [facility] [address] [id number] [address] [place] [address], [place] [address] 07 Apr, 2013 [facility] [address] [id number] [address] [place] [address], [place] [address] 10 Mar, 2013 [facility] [address] [id number] [address] [place] [address], [place] [address] 09 Feb, 2013 [facility] [address] [id number] [address] [place] [address], [place] [address] Jan, [facility] [address] [facility] [id number] [address] [place] [phone] Jan, [facility] [address] [facility] [id number] [address] [place] [phone] Jan, IMMUNIZATIONS No Known Immunizations SOCIAL HISTORY Never Assessed REASON FOR VISIT PLAN OF CARE VITAL SIGNS MEDICATIONS Unknown Medications RESULTS No Results PROCEDURES No Known procedures INSTRUCTIONS MEDICATIONS ADMINISTERED No Known Medications MEDICAL (GENERAL) HISTORY Type Description Date Hospitalization History UTI 12/04/2015
--- OUTSIDE RECORDS SUMMARY | 2020-01-12 11:32 | XMS REPORT ---
Author Cj Ordoñez [employer] Address Unknown Phone Unavailable Care Team Providers Care Management Associate Name Role Phone JULIO LINDO CP Unavailable Allergies, Adverse Reactions, Alerts Substance Reaction Event Type N.K.D.A. 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 Active Problem Generalized anxiety disorder 300.02 Active Problem Anxiety state, unspecified 300.00 A ctive Problem Depressive disorder, not elsewhere classified 311 Active Medications Medication Code System Code Instructions Start Date End Date Status Dosage Celebrex [facility] [place] [address]-41 200 MG Orally Once a day 1 capsule Alprazolam [facility] [place] [address]-07 2 MG Orally Thre e times a day PRN anxiety MUST LAST 30 Days Clementine to sign for Lei November 12, 2014 1 tablet Adderall [facility] [place] [address]-39 30 MG Orally Once a day Sanchez Barber to sign for Alfonzo 2 tablets Amitriptyline HCl [facility] [place] [id number] 150 MG Orally Once a day 1 tablet at bedtime [employer] [facility] [place] [address]-85 10-325 MG September 24, 2014 take 1 tablet by oral route every 6 hours as needed for pain PRN pain Lisinopril [facility] [place] [address]-40 10 mg Aug 17, 2014 ta ke 1 tablet by Oral route 1 time per day Take in am Procedures Procedure Coding System Code Date Office Visit, Est Pt., Level 3 CPT-4 85587 Jun 10, 2015 [facility] VISIT ESTABLISHED PATIENT CPT-4 G0467 D 2014 Vital Signs Date/Time: Jun 10, 2015 Cardiac Monitoring Heart Rate 84 bpm Weight 183.2 lbs Height 68 in BMI 27.85 Index Blood Pressure Diastolic 66 mmHg Blood Pressure Systolic 135 mmHg Results No Known Results Summary Purpose [employer] Submission
--- OUTSIDE RECORDS SUMMARY | 2020-01-12 11:32 | XMS REPORT ---
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 Active 81537281 Problem Anxiety state, unspecified 300.00 Act disha [id number] Problem Depressive disorder, not elsewhere classified 311 Active 50564307 Problem Major depressive disorder, recurrent episode, moderate 296 .32 Active 99633643 Problem Generalized anxiety disorder 300.02 A ctive 50287690 Problem Generalized anxiety disorder F41.1 A ctive 66958409 Problem Major depression F32.9 Active 370 922609 Problem Essential hypertension, benign 401.1 Active 9348693 Problem Pain in joint, lower leg 719.46 Activ e 238868302 Problem Attention deficit hyperactivity disorder F90.9 Active 286761008 Problem Other and unspecified hyperlipidemia 272.4 Active 71944232 ALLERGIES Unknown Allergies SOCIAL HISTORY No smoking Hx information available PLAN OF CARE Activity Details Follow Up 6 Weeks Reason: VITAL SIGNS Height 68 in 2016-05-20 Weight 184.9 lbs 2016-05-20 Heart Rate 80 bpm 2016-05-20 Respiratory Rate 20 2016-05-20 BMI 28.11 kg/m2 2016-05-20 Blood pressure systolic 142 mmHg 2016-05-20 Blood pressure diastolic 78 mmHg 2016-05-20 MEDICATIONS Medication Instructions Dosage Frequency Start Date End Date Duration S tatus Adderall 30 MG Orally Once a day 2 tablets 24h May, 30 days Active Amitriptyline HCl 150 MG Orally Once a day 1 tablet 24h 30 days Active Alprazolam 2 MG Orally as needed Three times a day 1 tablet 8h November, 30 days Active Mirtazapine 15 MG Orally Once a day 1 tablet before bedtime in the evening 24h Dec, 30 days Active [place] 10-325 MG take 1 tablet by ora l route every 6 hours as needed for pain PRN pain Sep, Active Metoprolol Tartrate 25 MG Orally Twice a day 1 tablet with food 12h Active Celebrex 200 MG Orally Once a day 1 capsule 24h 30 d ays Active RESULTS No Results PROCEDURES Procedure Date Ordered Related Diagnosis Body Site [facility] VISIT ESTABLISHED PATIENT May 20, 2016 Office Visit, Est Pt., Level 3 May 20, 2016 IMMUNIZATIONS No Known Immunizations
--- OUTSIDE RECORDS SUMMARY | 2020-01-12 11:32 | XMS REPORT ---
Author Cj Ordoñez Organization [employer] Address Unknown Phone Unavailable Care Team Providers Care [employer] Certified Orthotist Name Role Phone JULIO LINDO Unavailable Allergies No Known Allergies Problems Problem Type Condition Code Onset Dates Condition Statu s Problem Major depressive disorder, recurrent episode, moderate 296.32 Active Problem Essential hypertension, benign 401.1 Active [...] Instructions Start Date End Date Status Dosage Adderall [facility] [address]-55 30 MG Orally Onc e a day qAM Dr Romero to sign for Alfonzo 2 tablets Results No Known Results Summary Purpose [employer]Clinical[employer] Submission
--- OUTSIDE RECORDS SUMMARY | 2020-01-12 11:32 | XMS REPORT ---
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 Active [id number] Problem Depressive disorder, not elsewhere classified 311 Active [id number] Problem Generalized anxiety disorder 300.02 A ctive [id number] Problem Major depression F32.9 Active 370 048744 Problem Essential hypertension, benign 401.1 Active 5824238 Problem Generalized anxiety disorder F41.1 A ctive 86834176 Problem Pain in joint, lower leg 719.46 Activ e 547909355 Problem Anxiety state, unspecified 300.00 Act disha [id number] Problem Other and unspecified hyperlipidemia 272.4 Active 37856162 Problem Major depressive disorder, recurrent episode, moderate 296 .32 Active 31438980 Problem Attention deficit hyperactivity disorder F90.9 Active [id number] ALLERGIES No Information ENCOUNTERS Encounter Location Date Diagnosis [facility] [place] [address] [facility] [id number] [address] [place] [phone] Jun, [facility] [place] [address] [facility] [id number] [address] [place] [phone] May, Generalized anxiety disorder F41.1 ; Major depression F32.9 and Attention deficit hyperactivity disorder F90.9 [facility] [place] [address] [facility] [id number] [address] [place] [id number] Feb, [facility] [place] [address] [facility] [id number] [address] [place] [address] Jan, [facility] [place] [address] [facility] [id number] [address] [place] [id number] Dec, [facility] [place] [address] [facility] [id number] [address] [place] [phone] Dec, [facility] [place] [address] [id number] [address] [place] [address] Dec, Generalized anxiety disorder F41.1 ; Major depression F32.9 and Attention deficit hyperactivity disorder F90.9 [facility] [place] [address] [id number] [address] [place] [id number] Oct, [facility] [place] [address] [id number] [address] [place] [id number] Oct, [facility] [place] [address] [facility] [id number] [address] [place] [phone] Sep, [facility] [place] [address] [facility] [id number] [address] [place] [phone] Sep, [facility] [place] [address] [facility] [id number] [address] [place] [phone] Aug, [facility] [place] [address] [facility] [id number] [address] [place] [phone] Aug, Generalized anxiety disorder F41.1 ; Major depression F32.9 and Attention deficit hyperactivity disorder F90.9 [facility] [place] [address] [facility] [id number] [address] [place] [phone] Aug, [facility] [place] [address] [facility] [id number] [address] [place] [phone] Aug, [facility] [place] [address] [facility] [id number] [address] [place] [phone] Jun, [facility] [place] [address] [facility] [id number] [address] [place] [id number] Jun, [facility] [place] [address] [facility] [id number] [address] [place] [phone] Jun, Attention deficit hyperactiv ity disorder F90.9 ; Generalized anxiety disorder F41.1 and Major depression F32.9 [facility] [place] [address] [facility] [id number] [address] [place] [id number] Jun, [facility] [place] [address] [id number] [address] [place] [address] Apr, [facility] [place] [address] [id number] [address] [place] [phone] Mar, [facility] [place] [address] [facility] [id number] [address] [place] [phone] Mar, [facility] [place] [address] [id number] [address] [place] [id number] Feb, ADD (attention deficit disor nerissa) 314.00 ; Major depressive disorder, recurrent episode, moderate 296.32 and Generalized anxiety disorder 300.02 [facility] [place] [address] [id number] [address] [place] [phone] Feb, [facility] [place] [address] [facility] [id number] [address] [place] [phone] Feb, [facility] [place] [address] [facility] [id number] [address] [place] [phone] Jan, [facility] [place] [address] [id number] [address] [place] [phone] Jan, [facility] [place] [address] [facility] [id number] [address] [place] [phone] Jan, [facility] [place] [address] [facility] [id number] [address] [place] [id number] Jan, [facility] [place] [address] [facility] [id number] [address] [place] [phone] Dec, [facility] [place] [address] [id number] [address] [place] [id number] Dec, [facility] [place] [address] [facility] [id number] [address] [place] [id number] Dec, [facility] [place] [address] [facility] [id number] [address] [place] [id number] November, Attention deficit disorder o f childhood 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 314.00 ; Generalized anxiety disorder 300.02 and Major depressive disorder, recurrent episode, moderate 296.32 [facility] [place] [address] [id number] [address] [place] [phone] November, [facility] [place] [address] [id number] [address] [place] [phone] November, [facility] [place] [address] [id number] [address] [place] [id number] November, Anxiety state 300.00 [facility] [place] [address] [id number] [address] [place] [phone] Oct, [facility] [place] [address] [id number] [address] [place] [id number] Oct, [facility] [place] [address] [id number] [address] [place] [phone] Sep, [facility] [place] [address] [id number] [address] [place] [id number] Sep, [facility] [place] [address] [id number] [address] [place] [phone] Sep, [facility] [place] [address] [id number] [address] [place] [phone] Sep, [facility] [place] [address] [facility] [id number] [address] [place] [id number] Sep, [facility] [place] [address] [id number] [address] [place] [id number] Sep, [facility] [place] [address] [id number] [address] [place] [phone] Aug, [facility] [place] [address] [id number] [address] [place] [phone] Aug, [facility] [place] [address] [id number] [address] [place] [phone] Aug, [facility] [place] [address] [id number] [address] [place] [phone] Aug, [facility] [address] [id number] [address] [place] [address], [place] [address] Aug, [facility] [address] [id number] [address] [place] [address], [place] [address] Aug, 2014 [facility] [address] [id number] [address] [place] [address], [place] [address] Aug, [facility] [address] [id number] [address] [place] [address], [place] [address] Aug, [facility] [address] [id number] [address] [place] [address], [place] [address] Jul, [facility] [address] [id number] [address] [place] [address], [place] [address] Jul, [facility] [address] [id number] [address] [place] [address], [place] [address] Jul, [facility] [address] [id number] [address] [place] [address], [place] [address] Jul, [facility] [address] [id number] [address] [place] [address], [place] [address] Jul, [facility] [address] [id number] [address] [place] [address], [place] [address] Jul, [facility] [address] [id number] [address] [place] [address], [place] [address] Jun, [facility] [address] [id number] [address] [place] [phone] Jun, [facility] [address] [id number] [address] [place] [address], [place] [address] Jun, [facility] [address] [id number] [address] [place] [address], [place] [address] Jun, [facility] [address] [id number] [address] [place] [address], [place] [address] Jun, [facility] [address] [id number] [address] [place] [address], [place] [address] Jun, [facility] [address] [id number] [address] [place] [address], [place] [address] May, [facility] [address] [id number] [address] [place] [address], [place] [address] May, [facility] [address] [id number] [address] [place] [address], [place] [address] May, [facility] [address] [id number] [address] [place] [address], [place] [address] May, [facility] [address] [id number] [address] [place] [address], [place] [address] May, [facility] [address] [id number] [address] [place] [address], [place] [address] May, [facility] [address] [id number] [address] [place] [address], [place] [address] May, [facility] [address] [id number] [address] [place] [address], [place] [address] May, [facility] [address] [id number] [address] [place] [address], [place] [address] May, [facility] [address] [id number] [address] [place] [address], [place] [address] May, [facility] [address] [id number] [address] [place] [address], [place] [address] Apr, [facility] [address] [id number] [address] [place] [address], [place] [address] Apr, [facility] [address] [id number] [address] [place] [address], [place] [address] Apr, [facility] [address] [id number] [address] [place] [address], [place] [address] Apr, [facility] [address] [id number] [address] [place] [address], [place] [address] Apr, [facility] [address] [id number] [address] [place] [address], [place] [address] Apr, [facility] [address] [id number] [address] [place] [address], [place] [address] Apr, [facility] [address] [id number] [address] [place] [address], [place] [address] Apr, [facility] [address] [id number] [address] [place] [address], [place] [address] Mar, [facility] [address] [id number] [address] [place] [address], [place] [address] 15 Mar, 2014 [facility] [address] [id number] [address] [place] [address], [place] [address] Mar, [facility] [address] [id number] [address] [place] [address], [place] [address] Mar, [facility] [address] [id number] [address] [place] [address], [place] [address] Mar, [facility] [address] [id number] [address] [place] [address], [place] [address] Mar, [facility] [address] [id number] [address] [place] [address], [place] [address] Feb, [facility] [address] [id number] [address] [place] [address], [place] [address] Feb, [facility] [address] [id number] [address] [place] [address], [place] [address] Feb, [facility] [address] [id number] [address] [place] [address], [place] [address] Feb, [facility] [address] [id number] [address] [place] [address], [place] [address] Feb, [facility] [address] [id number] [address] [place] [address], [place] [address] Feb, [facility] [address] [id number] [facility] [place] [address] Jan, [facility] [address] [id number] [address] [place] [address], [place] [address] Jan, [facility] [address] [id number] [facility] [address] Jan, [facility] [address] [id number] [address] [place] [address], [place] [address] Jan, [facility] [address] [id number] [address] [place] [address], [place] [address] Jan, [facility] [address] [id number] [address] [place] [address], [place] [address] Jan, [facility] [address] [id number] [address] [place] [address], [place] [address] Dec, [facility] [address] [id number] [address] [place] [address], [place] [address] Dec, [facility] [address] [id number] [address] [place] [address], [place] [address] Dec, [facility] [address] [id number] [address] [place] [address], [place] [address] Dec, [facility] [address] [id number] [address] [place] [address], [place] [address] Dec, [facility] [address] [id number] [address] [place] [address], [place] [address] November, [facility] [address] [id number] [address] [place] [address], [place] [address] November, [facility] [address] [id number] [address] [place] [address], [place] [address] November, [facility] [address] [id number] [address] [place] [address], [place] [address] November, [facility] [address] [id number] [address] [place] [address], [place] [address] November, [facility] [address] [id number] [address] [place] [address], [place] [address] November, [facility] [address] [id number] [address] [place] [address], [place] [address] November, [facility] [address] [id number] [address] [place] [address], [place] [address] November, [facility] [address] [id number] [address] [place] [address], [place] [address] Oct, [facility] [address] [id number] [address] [place] [address], [place] [address] Oct, [facility] [address] [id number] [address] [place] [address], [place] [address] Oct, [facility] [address] [id number] [address] [place] [address], [place] [address] Oct, [facility] [address] [id number] [address] [place] [address], [place] [address] Oct, [facility] [address] [id number] [address] [place] [address], [place] [address] Oct, [facility] [address] [id number] [address] [place] [address], [place] [address] Sep, [facility] [address] [id number] [address] [place] [address], [place] [address] Sep, [facility] [address] [id number] [address] [place] [address], [place] [address] Sep, [facility] [address] [id number] [address] [place] [address], [place] [address] Sep, [facility] [address] [id number] [address] [place] [address], [place] [address] Sep, [facility] [address] [id number] [address] [place] [address], [place] [address] Sep, [facility] [address] [id number] [address] [place] [address], [place] [address] Aug, [facility] [address] [id number] [address] [place] [address], [place] [address] Aug, [facility] [address] [id number] [address] [place] [address], [place] [address] Jul, [facility] [address] [id number] [address] [place] [address], [place] [address] Jul, [facility] [address] [id number] [address] [place] [address], [place] [address] Jul, [facility] [address] [id number] [address] [place] [address], [place] [address] Jul, [facility] [address] [id number] [address] [place] [address], [place] [address] Jul, [facility] [address] [id number] [address] [place] [address], [place] [address] Jul, [facility] [address] [id number] [address] [place] [address], [place] [address] Jul, [facility] [address] [id number] [address] [place] [address], [place] [address] Jul, [facility] [address] [id number] [address] [place] [address], [place] [address] Jul, [facility] [address] [id number] [address] [place] [address], [place] [id number] Jul, [facility] [address] [id number] [address] [place] [address], [place] [address] Jul, [facility] [address] [id number] [address] [place] [address], [place] [id number] Jul, [facility] [address] [id number] [address] [place] [address], [place] [address] Jun, [facility] [address] [id number] [address] [place] [address], [place] [address] Jun, [facility] [address] [id number] [address] [place] [address], [place] [address] 20 Jun, 2013 [facility] [address] [id number] [address] [place] [address], [place] [address] 20 Jun, 2013 [facility] [address] [id number] [address] [place] [address], [place] [address] Jun, [facility] [address] [id number] [address] [place] [address], [place] [address] Jun, [facility] [address] [id number] [address] [place] [address], [place] [address] Jun, [facility] [address] [id number] [address] [place] [address], [place] [address] Jun, [facility] [address] [id number] [address] [place] [address], [place] [address] 18 May, 2013 [facility] [address] [id number] [address] [place] [address], [place] [address] 18 May, 2013 [facility] [address] [id number] [address] [place] [address], [place] [address] May, [facility] [address] [id number] [address] [place] [address], [place] [address] May, [facility] [address] [id number] [address] [place] [address], [place] [address] 10 Apr, 2013 [facility] [address] [id number] [address] [place] [address], [place] [address] 10 Apr, 2013 [facility] [address] [id number] [address] [place] [address], [place] [address] 07 Apr, 2013 [facility] [address] [id number] [address] [place] [address], [place] [address] 10 Mar, 2013 [facility] [address] [id number] [address] [place] [address], [place] [address] 09 Feb, 2013 [facility] [address] [id number] [address] [place] [address], [place] [address] Jan, [facility] [place] [address] [facility] [id number] [address] [place] [id number] Jan, [facility] [place] [address] [facility] [id number] [address] [place] [id number] Jan, IMMUNIZATIONS No Known Immunizations SOCIAL HISTORY Never Assessed REASON FOR VISIT PLAN OF CARE VITAL SIGNS Height 68 in 2014-08-17 Weight 184.2 lbs 2014-08-17 Temperature 99.7 degrees Fahrenheit 2014-08-17 Heart Rate 98 bpm 2014-08-17 Respiratory Rate 20 2014-08-17 Blood pressure systolic 150 mmHg 2014-08-17 Blood pressure diastolic 90 mmHg 2014-08-17 MEDICATIONS Unknown Medications RESULTS No Results PROCEDURES No Known procedures INSTRUCTIONS MEDICATIONS ADMINISTERED No Known Medications MEDICAL (GENERAL) HISTORY Type Description Date Hospitalization History UTI 12/04/2015
--- OUTSIDE RECORDS SUMMARY | 2020-01-12 11:32 | XMS REPORT ---
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.00 Active 98823424 Problem Depressive disorder, not elsewhere classified 311 Active 01127373 Problem Generalized anxiety disorder 300.02 A ctive 13901486 Problem Major depression F32.9 Active 370 316321 Problem Essential hypertension, benign 401.1 Active 1491927 Problem Generalized anxiety disorder F41.1 A ctive 88218576 Problem Pain in joint, lower leg 719.46 Activ e 966293479 Problem Anxiety state, unspecified 300.00 Act disha 999372034 Problem Other and unspecified hyperlipidemia 272.4 Active 10797758 Problem Major depressive disorder, recurrent episode, moderate 296 .32 Active 07329960 Problem Attention deficit hyperactivity disorder F90.9 Active [id number] ALLERGIES No Information ENCOUNTERS Encounter Location Date Diagnosis [facility] [address] [facility] [id number] [address] [address] Jun, [facility] [address] [place] [id number] [address] [address] May, Generalized anxiety disorder F41.1 ; Major depression F32.9 and Attention deficit hyperactivity disorder F90.9 [facility] [address] [facility]] [id number] [address] [address] Feb, [facility] [address] [place] [id number] [address] [place] [address] Jan, [facility] [address] [facility]] [id number] [address] [address] Dec, [facility] [address] [facility]] [id number] [address] [address] Dec, [facility] [address] [facility]] [id number] [address] [address] Dec, Generalized anxiety disorder F41.1 ; Major depression F32.9 and Attention deficit hyperactivity disorder F90.9 [facility] [address] [id number] [address] [place] [address] Oct, [facility] [address] [facility]] [id number] [address] [place] [address] Oct, [facility] [address] [facility]] [id number] [address] [place] [address] Sep, [facility] [address] [facility]] [id number] [address] [place] [address] Sep, [facility] [address] [facility]] [id number] [address] [place] [address] Aug, [facility] [address] [facility]] [id number] [address] [place] [address] Aug, Generalized anxiety disorder F41.1 ; Major depression F32.9 and Attention deficit hyperactivity disorder F90.9 [facility] [address] [facility]] [id number] [address] [place] [address] Aug, [facility] [address] [facility]] [id number] [address] [place] [address] Aug, [facility] [address] [facility]] [id number] [address] [place] [address] Jun, [facility] [address] [facility]] [id number] [address] [place] [address] Jun, [facility] [address] [facility]] [id number] [address] [place] [address] Jun, Attention deficit hyperactiv ity disorder F90.9 ; Generalized anxiety disorder F41.1 and Major depression F32.9 [facility] [address] [facility]] [id number] [address] [place] [address] Jun, [facility] [address] [id number] [address] [place] [address] Apr, [facility] [address] [id number] [address] [place] [address] Mar, [facility] [address] [id number] [address] [place] [address] Mar, [facility] [address] [id number] [address] [place] [address] Feb, ADD (attention deficit disor nerissa) 314.00 ; Major depressive disorder, recurrent episode, moderate 296.32 and Generalized anxiety disorder 300.02 [facility] [address] [id number] [address] [place] [address] Feb, [facility] [address] [id number] [address] [place] [address] Feb, [facility] [address] [facility]] [id number] [address] [place] [address] Jan, [facility] [address] [id number] [address] [place] [address] Jan, [facility] [address] [facility]] [id number] [address] [place] [address] Jan, [facility] [address] [facility]] [id number] [address] [place] [address] Jan, [facility] [address] [id number] [address] [place] [address] Dec, [facility] [address] [id number] [address] [place] [address] Dec, [facility] [address] [id number] [address] [place] [address] Dec, [facility] [address] [facility]] [id number] [address] [place] [address] November, Attention deficit disorder o f childhood 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 314.00 ; Generalized anxiety disorder 300.02 and Major depressive disorder, recurrent episode, moderate 296.32 [facility] [address] [id number] [address] [place] [address] November, [facility] [address] [id number] [address] [place] [address] November, [facility] [address] [id number] [address] [place] [address] November, Anxiety state 300.00 [facility] [address] [id number] [address] [place] [address] Oct, [facility] [address] [id number] [address] [place] [address], [place] [address] Oct, [facility] [address] [id number] [address] [place] [address] Sep, [facility] [address] [id number] [address] [place] [address] Sep, [facility] [address] [id number] [address] [place] [address] Sep, [facility] [address] [id number] [address] [place] [address] Sep, [facility] [address] [id number] [address] [place] [address] Sep, [facility] [address] [id number] [address] [place] [address] Sep, [facility] [address] [id number] [address] [place] [address] Aug, [facility] [address] [id number] [address] [place] [address] Aug, [facility] [address] [id number] [address] [place] [address] Aug, [facility] [address] [id number] [address] [place] [address] Aug, [facility] [address] [id number] [address] [place] [address], [place] [address] Aug, 2014 [facility] [address] [id number] [address] [place] [address], [place] [address] Aug, 2014 [facility] [address] [id number] [address] [place] [address], [place] [address] Aug, [facility] [address] [id number] [address] [place] [address], [place] [address] Aug, [facility] [address] [id number] [address] [place] [address], [place] [address] Jul, [facility] [address] [id number] [address] [place] [address], [place] [address] Jul, [facility] [address] [id number] [address] [place] [address], [place] [address] Jul, [facility] [address] [id number] [address] [place] [address], [place] [address] Jul, [facility] [address] [id number] [address] [place] [address], [place] [address] Jul, [facility] [address] [id number] [address] [place] [address], [place] [address] Jul, [facility] [address] [id number] [address] [place] [address], [place] [address] Jun, [facility] [address] [id number] [address] [place] [address], [place] [address] Jun, [facility] [address] [id number] [address] [place] [address], [place] [address] Jun, [facility] [address] [id number] [address] [place] [address], [place] [address] Jun, [facility] [address] [id number] [address] [place] [address], [place] [address] Jun, [facility] [address] [id number] [address] [place] [address], [place] [address] Jun, [facility] [address] [id number] [address] [place] [address], [place] [address] May, [facility] [address] [id number] [address] [place] [address], [place] [address] May, [facility] [address] [id number] [address] [place] [address], [place] [address] May, [facility] [address] [id number] [address] [place] [address], [place] [address] May, [facility] [address] [id number] [address] [place] [address], [place] [address] May, [facility] [address] [id number] [address] [place] [address], [place] [address] May, [facility] [address] [id number] [address] [place] [address], [place] [address] May, [facility] [address] [id number] [address] [place] [address], [place] [address] May, [facility] [address] [id number] [address] [place] [address], [place] [address] May, [facility] [address] [id number] [address] [place] [address], [place] [address] May, [facility] [address] [id number] [address] [place] [address], [place] [address] Apr, [facility] [address] [id number] [address] [place] [address], [place] [address] Apr, [facility] [address] [id number] [address] [place] [address], [place] [address] Apr, [facility] [address] [id number] [address] [place] [address], [place] [address] Apr, [facility] [address] [id number] [address] [place] [address], [place] [address] 09 Apr, 2014 [facility] [address] [id number] [address] [place] [address], [place] [address] Apr, [facility] [address] [id number] [address] [place] [address], [place] [address] Apr, [facility] [address] [id number] [address] [place] [address], [place] [address] Apr, [facility] [address] [id number] [address] [place] [address], [place] [address] 15 Mar, 2014 [facility] [address] [id number] [address] [place] [address], [place] [address] 15 Mar, 2014 [facility] [address] [id number] [address] [place] [address], [place] [address] Mar, [facility] [address] [id number] [address] [place] [address], [place] [address] Mar, [facility] [address] [id number] [address] [place] [address], [place] [address] Mar, [facility] [address] [id number] [address] [place] [address], [place] [address] Mar, [facility] [address] [id number] [address] [place] [address], [place] [address] Feb, [facility] [address] [id number] [address] [place] [address], [place] [address] Feb, [facility] [address] [id number] [address] [place] [address], [place] [address] Feb, [facility] [address] [id number] [address] [place] [address], [place] [address] Feb, [facility] [address] [id number] [address] [place] [address], [place] [address] Feb, [facility] [address] [id number] [address] [place] [address], [place] [address] Feb, [facility] [address] [id number] [address] [place] [address], [place] [address] Jan, [facility] [address] [id number] [facility] [place] [address] Jan, [facility] [address] [id number] [facility] [place] [address] Jan, [facility] [address] [id number] [facility] [place] [address] Jan, [facility] [address] [id number] [facility] [place] [address] Jan, [facility] [address] [id number] [facility] [place] [address] Jan, [facility] [address] [id number] [address] [place] [address], [place] [address] Dec, [facility] [address] [id number] [address] [place] [address], [place] [address] Dec, [facility] [address] [id number] [address] [place] [address], [place] [address] Dec, [facility] [address] [id number] [address] [place] [address], [place] [address] Dec, [facility] [address] [id number] [address] [place] [address], [place] [address] Dec, [facility] [address] [id number] [address] [place] [address], [place] [address] November, [facility] [address] [id number] [address] [place] [address], [place] [address] November, [facility] [address] [id number] [address] [place] [address], [place] [address] November, [facility] [address] [id number] [address] [place] [address], [place] [address] November, [facility] [address] [id number] [address] [place] [address], [place] [address] November, [facility] [address] [id number] [address] [place] [address], [place] [address] November, [facility] [address] [id number] [address] [place] [address], [place] [address] November, [facility] [address] [id number] [address] [place] [address], [place] [address] November, [facility] [address] [id number] [address] [place] [address], [place] [address] Oct, [facility] [address] [id number] [address] [place] [address], [place] [address] Oct, [facility] [address] [id number] [address] [place] [address], [place] [address] Oct, [facility] [address] [id number] [address] [place] [address], [place] [address] Oct, [facility] [address] [id number] [address] [place] [address], [place] [address] Oct, [facility] [address] [id number] [address] [place] [address], [place] [address] Oct, [facility] [address] [id number] [address] [place] [address], [place] [address] Sep, [facility] [address] [id number] [address] [place] [address], [place] [address] Sep, [facility] [address] [id number] [address] [place] [address], [place] [address] Sep, [facility] [address] [id number] [address] [place] [address], [place] [address] Sep, [facility] [address] [id number] [address] [place] [address], [place] [address] Sep, [facility] [address] [id number] [address] [place] [address], [place] [address] Sep, [facility] [address] [id number] [address] [place] [address], [place] [address] Aug, [facility] [address] [id number] [address] [place] [address], [place] [address] Aug, [facility] [address] [id number] [address] [place] [address], [place] [address] Jul, [facility] [address] [id number] [address] [place] [address], [place] [address] Jul, [facility] [address] [id number] [address] [place] [address], [place] [address] Jul, [facility] [address] [id number] [address] [place] [address], [place] [address] Jul, [facility] [address] [id number] [address] [place] [address], [place] [address] Jul, [facility] [address] [id number] [address] [place] [address], [place] [address] Jul, [facility] [address] [id number] [address] [place] [address], [place] [address] Jul, [facility] [address] [id number] [address] [place] [address], [place] [address] Jul, [facility] [address] [id number] [address] [place] [address], [place] [address] Jul, [facility] [address] [id number] [address] [place] [address], [place] [address] Jul, [facility] [address] [id number] [address] [place] [address], [place] [address] Jul, [facility] [address] [id number] [address] [place] [address], [place] [address] Jul, [facility] [address] [id number] [address] [place] [address], [place] [address] Jun, [facility] [address] [id number] [address] [place] [address], [place] [address] Jun, [facility] [address] [id number] [address] [place] [address], [place] [address] Jun, [facility] [address] [id number] [address] [place] [address], [place] [address] Jun, [facility] [address] [id number] [address] [place] [address], [place] [address] Jun, [facility] [address] [id number] [address] [place] [address], [place] [address] Jun, [facility] [address] [id number] [address] [place] [address], [place] [address] Jun, [facility] [address] [id number] [address] [place] [address], [place] [address] Jun, [facility] [address] [id number] [address] [place] [address], [place] [address] May, [facility] [address] [id number] [address] [place] [address], [place] [address] May, [facility] [address] [id number] [address] [place] [id number] May, [facility] [address] [id number] [address] [place] [address], [place] [address] May, [facility] [address] [id number] [address] [place] [address] Apr, [facility] [address] [id number] [address] [place] [id number] Apr, [facility] [address] [id number] [address] [place] [id number] 07 Apr, 2013 [facility] [address] [id number] [address] [place] [id number] 10 Mar, 2013 [facility] [address] [id number] [address] [place] [id number] 09 Feb, 2013 [facility] [address] [id number] [address] [place] [id number] 15 Jan, 2013 [facility] [address] [id number] [address] [place] [address] Jan, [facility] [address] [facility]NOTE [facility] [id number] [address] [place] [id number] Jan, IMMUNIZATIONS No Known Immunizations SOCIAL HISTORY Never Assessed REASON FOR VISIT EMR-[facility] PLAN OF CARE VITAL SIGNS MEDICATIONS Unknown Medications RESULTS No Results PROCEDURES No Known procedures INSTRUCTIONS MEDICATIONS ADMINISTERED No Known Medications MEDICAL (GENERAL) HISTORY Type Description Date Hospitalization History UTI 12/04/2015
--- OUTSIDE RECORDS SUMMARY | 2020-01-12 11:32 | XMS REPORT ---
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 Active 11950607 Problem Depressive disorder, not elsewhere classified 311 Active 35477998 Problem Generalized anxiety disorder 300.02 A ctive 91285753 Problem Major depression F32.9 Active 370 678165 Problem Essential hypertension, benign 401.1 Active 1053111 Problem Generalized anxiety disorder F41.1 A ctive 25595054 Problem Pain in joint, lower leg 719.46 Activ e 610341826 Problem Anxiety state, unspecified 300.00 Act disha 647145420 Problem Other and unspecified hyperlipidemia 272.4 Active 60790745 Problem Major depressive disorder, recurrent episode, moderate 296 .32 Active 49586892 Problem Attention deficit hyperactivity disorder F90.9 Active [id number] ALLERGIES No Information ENCOUNTERS Encounter Location Date Diagnosis [facility] [address] [facility] [id number] [address] [place] [address] Jun, [facility] [address] [place] [id number] [address] [place] [address] May, Generalized anxiety disorder F41.1 ; Major depression F32.9 and Attention deficit hyperactivity disorder F90.9 [facility] [address] [facility] [id number] [address] [place] [address] Feb, [facility] [address] [id number] [address] [place] [address] Jan, [facility] [address] [facility] [id number] [address] [place] [address] Dec, [facility] [address] [facility] [id number] [address] [place] [address] Dec, [facility] [address] [facility] [id number] [address] [place] [address] Dec, Generalized anxiety disorder F41.1 ; Major depression F32.9 and Attention deficit hyperactivity disorder F90.9 [facility] [address] [id number] [address] [place] [address] Oct, [facility] [address] [facility] [id number] [address] [place] [address] Oct, [facility] [address] [facility] [id number] [address] [place] [address] Sep, [facility] [address] [facility] [id number] [address] [place] [address] Sep, [facility] [address] [facility] [id number] [address] [place] [address] Aug, [facility] [address] [facility] [id number] [address] [place] [address] Aug, Generalized anxiety disorder F41.1 ; Major depression F32.9 and Attention deficit hyperactivity disorder F90.9 [facility] [address] [facility] [id number] [address] [place] [address] Aug, [facility] [address] [facility] [id number] [address] [place] [address] Aug, [facility] [address] [facility] [id number] [address] [place] [address] Jun, [facility] [address] [facility] [id number] [address] [place] [address] Jun, [facility] [address] [facility] [id number] [address] [place] [address] Jun, Attention deficit hyperactiv ity disorder F90.9 ; Generalized anxiety disorder F41.1 and Major depression F32.9 [facility] [address] [facility] [id number] [address] [place] [address] Jun, [facility] [address] [id number] [address] [place] [address] Apr, [facility] [address] [id number] [address] [place] [address] Mar, [facility] [address] [id number] [address] [place] [address] Mar, [facility] [address] [id number] [address] [place] [address] Feb, ADD (attention deficit disor nerissa) 314.00 ; Major depressive disorder, recurrent episode, moderate 296.32 and Generalized anxiety disorder 300.02 [facility] [address] [id number] [address] [place] [address] Feb, [facility] [address] [id number] [address] [place] [address] Feb, [facility] [address] [facility] [id number] [address] [place] [address] Jan, [facility] [address] [id number] [address] [place] [address] Jan, [facility] [address] [facility] [id number] [address] [place] [address] Jan, [facility] [address] [facility] [id number] [address] [place] [address] Jan, [facility] [address] [id number] [address] [place] [address] Dec, [facility] [address] [id number] [address] [place] [address] Dec, [facility] [address] [id number] [address] [place] [address] Dec, [facility] [address] [facility] [id number] [address] [place] [address] November, Attention deficit disorder o f childhood 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 314.00 ; Generalized anxiety disorder 300.02 and Major depressive disorder, recurrent episode, moderate 296.32 [facility] [address] [id number] [address] [place] [address] November, [facility] [address] [id number] [address] [place] [address] November, [facility] [address] [id number] [address] [place] [address] November, Anxiety state 300.00 [facility] [address] [id number] [address] [place] [address] Oct, [facility] [address] [id number] [address] [place] [address], [place] [address] Oct, [facility] [address] [id number] [address] [place] [address] Sep, [facility] [address] [id number] [address] [place] [address] Sep, [facility] [address] [id number] [address] [place] [address] Sep, [facility] [address] [id number] [address] [place] [phone] Sep, [facility] [address] [id number] [address] [place] [address] Sep, [facility] [address] [id number] [address] [place] [address] Sep, [facility] [address] [id number] [address] [place] [phone] Aug, [facility] [address] [id number] [address] [place] [address] Aug, [facility] [address] [id number] [address] [place] [address] Aug, [facility] [address] [id number] [address] [place] [phone] Aug, [facility] [address] [id number] [address] [place] [address], [place] [address] Aug, 2014 [facility] [address] [id number] [address] [place] [address], [place] [address] Aug, 2014 [facility] [address] [id number] [address] [place] [address], [place] [address] Aug, [facility] [address] [id number] [address] [place] [address], [place] [address] Aug, [facility] [address] [id number] [address] [place] [address], [place] [address] Jul, [facility] [address] [id number] [address] [place] [address], [place] [address] Jul, [facility] [address] [id number] [address] [place] [address], [place] [address] Jul, [facility] [address] [id number] [address] [place] [address], [place] [address] Jul, [facility] [address] [id number] [address] [place] [address], [place] [address] Jul, [facility] [address] [id number] [address] [place] [address], [place] [address] Jul, [facility] [address] [id number] [address] [place] [address], [place] [address] Jun, [facility] [address] [id number] [address] [place] [address], [place] [address] Jun, [facility] [address] [id number] [address] [place] [address], [place] [address] Jun, [facility] [address] [id number] [address] [place] [address], [place] [address] Jun, [facility] [address] [id number] [address] [place] [address], [place] [address] Jun, [facility] [address] [id number] [address] [place] [address], [place] [address] Jun, [facility] [address] [id number] [address] [place] [address], [place] [address] May, [facility] [address] [id number] [address] [place] [address], [place] [address] May, [facility] [address] [id number] [address] [place] [address], [place] [address] May, [facility] [address] [id number] [address] [place] [address], [place] [address] May, [facility] [address] [id number] [address] [place] [address], [place] [address] May, [facility] [address] [id number] [address] [place] [address], [place] [address] May, [facility] [address] [id number] [address] [place] [address], [place] [address] May, [facility] [address] [id number] [address] [place] [address], [place] [address] May, [facility] [address] [id number] [address] [place] [address], [place] [address] May, [facility] [address] [id number] [address] [place] [address], [place] [address] May, [facility] [address] [id number] [address] [place] [address], [place] [address] Apr, [facility] [address] [id number] [address] [place] [address], [place] [address] Apr, [facility] [address] [id number] [address] [place] [address], [place] [address] Apr, [facility] [address] [id number] [address] [place] [address], [place] [address] Apr, [facility] [address] [id number] [address] [place] [address], [place] [address] 09 Apr, 2014 [facility] [address] [id number] [address] [place] [address], [place] [address] Apr, [facility] [address] [id number] [address] [place] [address], [place] [address] Apr, [facility] [address] [id number] [address] [place] [address], [place] [address] Apr, [facility] [address] [id number] [address] [place] [address], [place] [address] 15 Mar, 2014 [facility] [address] [id number] [address] [place] [address], [place] [address] 15 Mar, 2014 [facility] [address] [id number] [address] [place] [address], [place] [address] Mar, [facility] [address] [id number] [address] [place] [address], [place] [address] Mar, [facility] [address] [id number] [address] [place] [address], [place] [address] Mar, [facility] [address] [id number] [address] [place] [address], [place] [address] Mar, [facility] [address] [id number] [address] [place] [address], [place] [address] Feb, [facility] [address] [id number] [address] [place] [address], [place] [address] Feb, [facility] [address] [id number] [address] [place] [address], [place] [address] Feb, [facility] [address] [id number] [address] [place] [address], [place] [address] Feb, [facility] [address] [id number] [address] [place] [address], [place] [address] Feb, [facility] [address] [id number] [address] [place] [address], [place] [address] Feb, [facility] [address] [id number] [address] [place] [address], [place] [address] Jan, [facility] [address] [id number] [facility] [place] [address] Jan, [facility] [address] [id number] [facility] [place] [address] Jan, [facility] [address] [id number] [facility] [place] [address] Jan, [facility] [address] [id number] [facility] [place] [address] Jan, [facility] [address] [id number] [facility] [place] [address] Jan, [facility] [address] [id number] [address] [place] [address], [place] [address] Dec, [facility] [address] [id number] [address] [place] [address], [place] [address] Dec, [facility] [address] [id number] [address] [place] [address], [place] [address] Dec, [facility] [address] [id number] [address] [place] [address], [place] [address] Dec, [facility] [address] [id number] [address] [place] [address], [place] [address] Dec, [facility] [address] [id number] [address] [place] [address], [place] [address] November, [facility] [address] [id number] [address] [place] [address], [place] [address] November, [facility] [address] [id number] [address] [place] [address], [place] [address] November, [facility] [address] [id number] [address] [place] [address], [place] [address] November, [facility] [address] [id number] [address] [place] [address], [place] [address] November, [facility] [address] [id number] [address] [place] [address], [place] [address] November, [facility] [address] [id number] [address] [place] [address], [place] [address] November, [facility] [address] [id number] [address] [place] [address], [place] [address] November, [facility] [address] [id number] [address] [place] [address], [place] [address] Oct, [facility] [address] [id number] [address] [place] [address], [place] [address] Oct, [facility] [address] [id number] [address] [place] [address], [place] [address] Oct, [facility] [address] [id number] [address] [place] [address], [place] [address] Oct, [facility] [address] [id number] [address] [place] [address], [place] [address] Oct, [facility] [address] [id number] [address] [place] [address], [place] [address] Oct, [facility] [address] [id number] [address] [place] [address], [place] [address] Sep, [facility] [address] [id number] [address] [place] [address], [place] [address] Sep, [facility] [address] [id number] [address] [place] [address], [place] [address] Sep, [facility] [address] [id number] [address] [place] [address], [place] [address] Sep, [facility] [address] [id number] [address] [place] [address], [place] [address] Sep, [facility] [address] [id number] [address] [place] [address], [place] [address] Sep, [facility] [address] [id number] [address] [place] [address], [place] [address] Aug, [facility] [address] [id number] [address] [place] [address], [place] [address] Aug, [facility] [address] [id number] [address] [place] [address], [place] [address] Jul, [facility] [address] [id number] [address] [place] [address], [place] [address] Jul, [facility] [address] [id number] [address] [place] [address], [place] [address] Jul, [facility] [address] [id number] [address] [place] [address], [place] [address] Jul, [facility] [address] [id number] [address] [place] [address], [place] [address] Jul, [facility] [address] [id number] [address] [place] [address], [place] [address] Jul, [facility] [address] [id number] [address] [place] [address], [place] [address] Jul, [facility] [address] [id number] [address] [place] [address], [place] [address] Jul, [facility] [address] [id number] [address] [place] [address], [place] [address] Jul, [facility] [address] [id number] [address] [place] [address], [place] [address] Jul, [facility] [address] [id number] [address] [place] [address], [place] [address] Jul, [facility] [address] [id number] [address] [place] [address], [place] [address] Jul, [facility] [address] [id number] [address] [place] [address], [place] [address] Jun, [facility] [address] [id number] [address] [place] [address], [place] [address] Jun, [facility] [address] [id number] [address] [place] [address], [place] [address] Jun, [facility] [address] [id number] [address] [place] [address], [place] [address] Jun, [facility] [address] [id number] [address] [place] [address], [place] [address] Jun, [facility] [address] [id number] [address] [place] [address], [place] [address] Jun, [facility] [address] [id number] [address] [place] [address], [place] [address] Jun, [facility] [address] [id number] [address] [place] [address], [place] [address] Jun, [facility] [address] [id number] [address] [place] [address], [place] [address] May, [facility] [address] [id number] [address] [place] [address], [place] [address] May, [facility] [address] [id number] [address] [place] [address] May, [facility] [address] [id number] [address] [place] [address], [place] [address] May, [facility] [address] [id number] [address] [place] [address] Apr, [facility] [address] [id number] [address] [place] [phone] Apr, [facility] [address] [id number] [address] [place] [id number] 07 Apr, 2013 [facility] [address] [id number] [address] [place] [id number] 10 Mar, 2013 [facility] [address] [id number] [address] [place] [phone] 09 Feb, 2013 [facility] [address] [id number] [address] [place] [id number] 15 Jan, 2013 [facility] [address] [id number] [address] [place] [phone] Jan, [facility] [address] [facility] [id number] [address] [place] [phone] Jan, IMMUNIZATIONS No Known Immunizations SOCIAL HISTORY Never Assessed REASON FOR VISIT EMR-[facility] PLAN OF CARE VITAL SIGNS MEDICATIONS Unknown Medications RESULTS No Results PROCEDURES No Known procedures INSTRUCTIONS MEDICATIONS ADMINISTERED No Known Medications MEDICAL (GENERAL) HISTORY Type Description Date Hospitalization History UTI 12/04/2015
--- OUTSIDE RECORDS SUMMARY | 2020-01-12 11:32 | XMS REPORT ---
Author Cj Ordoñez [facility] eClinicalWorks Address Unknown Phone Unavailable Care Team Providers Care Emergency Communications Operator Name Role Phone JULIO LINDO CP Unavailable Allergies, Adverse Reactions, Alerts Substance Reaction Event Type N.K.D.A. Info Not Available Non Drug Allergy Problems Problem Type Condition ICD-9 Code Onset Dates Condition Statu s Assessment Major depressive disorder, recurrent episode, moderate 296.32 Active Problem Major depressive disorder, recurrent episode, moderate 296.32 Active Assessment ADD (attention deficit disorder) 314.00 Active Assessment Generalized anxiety disorder 300.02 Active Problem Essential hypertension, benign 401.1 Active [...] Start Date End Date Status Dosage Celebrex [facility] [address]-93 200 MG Orally Once a day 1 capsule Alprazolam [facility] [address]-65 2 MG Orally Three times a d ay PRN anxiety November 12, 2014 1 tablet Lisinopril [facility] [address]-09 10 mg Aug 17, 2014 ta ke 1 tablet by Oral route 1 time per day Take in am Adderall [facility] [address]-89 30 MG Orally Once a day qAM 2 tablets Amitriptyline HCl [facility] [address]-81 150 MG Orally Once a day November 28, 2014 1 tablet at bedtime Bruner [facility] [address]-20 10-325 MG September 24, 2014 take 1 tablet by oral route every 6 hours as needed for pain PRN pain Procedures Procedure Coding System Code Date Office Visit, Est Pt., Level 2 CPT-4 33940 Feb 25, 2015 PENDING SALE TO [facility] VISIT ESTABLISHED PATIENT CPT-4 G0467 A 2014 Vital Signs Date/Time: Feb 25, 2015 Temperature 98.6 F Weight 186.7 lbs Height 68 in BMI 28.38 Index Blood Pressure Diastolic 105 mmHg Blood Pressure Systolic 165 mmHg Cardiac Monitoring Heart Rate 88 bpm Results No Known Results Summary Purpose eClinicalWorks Submission
--- OUTSIDE RECORDS SUMMARY | 2020-01-12 11:32 | XMS REPORT ---
Author Cj Ordoñez Organization e[employer] Address Unknown Phone Unavailable Care Team Providers Care Leak Detection Engineer Name Role Phone JULIO LINDO CP Unavailable Allergies No Known Allergies Problems Problem Type Condition ICD-9 Code Onset Dates Condition Statu s Problem [...] Start Date End Date Status Dosage Adderall [facility] [address]-46 30 MG Orally Once a day qAM 2 tablets Results No Known Results Summary Purpose eClinicalWorks Submission
--- OUTSIDE RECORDS SUMMARY | 2020-01-12 11:32 | XMS REPORT ---
Author Cj Ordoñez Organization [employer] Address Unknown Phone Unavailable Care Team Providers Care Direct Customer Service Representative Name Role Phone JULIO LINDO Unavailable Allergies [...] Start Date End Date Status Dosage Adderall [facility] [id number] 30 MG Orally Onc e a day qAM Dr Romero to sign for Alfonzo 2 tablets Results No Known Results Summary Purpose [employer] Submission
--- OUTSIDE RECORDS SUMMARY | 2020-01-12 11:32 | XMS REPORT ---
Author Cj Ordoñez Organization [employer] Address Unknown Phone Unavailable Care Team Providers Care Manager State Name Role Phone JULIO LINDO Unavailable Allergies [...] Start Date End Date Status Dosage Adderall [facility] [id number] 30 MG Orally Once a day qAM Sunil to sign for Alfonzo 2 tablets Results No Known Results Summary Purpose [employer] Submission
--- OUTSIDE RECORDS SUMMARY | 2020-01-12 11:32 | XMS REPORT ---
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.00 Active 16806353 Problem Depressive disorder, not elsewhere classified 311 Active 14142795 Problem Generalized anxiety disorder 300.02 A ctive 39269464 Problem Major depression F32.9 Active 370 797612 Problem Essential hypertension, benign 401.1 Active 4561935 Problem Generalized anxiety disorder F41.1 A ctive 09037743 Problem Pain in joint, lower leg 719.46 Activ e 236152291 Problem Anxiety state, unspecified 300.00 Act disha 824912092 Problem Other and unspecified hyperlipidemia 272.4 Active 71866452 Problem Major depressive disorder, recurrent episode, moderate 296 .32 Active 54665827 Problem Attention deficit hyperactivity disorder F90.9 Active [id number] ALLERGIES No Information ENCOUNTERS Encounter Location Date Diagnosis [facility] [address] [facility] [id number] [address] [place] [phone] Jun, [facility] [address] [place] [id number] [address] [place] [phone] May, Generalized anxiety disorder F41.1 ; Major depression F32.9 and Attention deficit hyperactivity disorder F90.9 [facility] [address] [facility] [id number] [address] [place] [phone] Feb, [facility] [address] [facility] [id number] [address] [place] [phone] Jan, [facility] [address] [facility] [id number] [address] [place] [phone] Dec, [facility] [address] [facility] [id number] [address] [place] [phone] Dec, [facility] [address] [facility] [id number] [address] [place] [phone] Dec, Generalized anxiety disorder F41.1 ; Major depression F32.9 and Attention deficit hyperactivity disorder F90.9 [facility] [address] [id number] [address] [place] [phone] Oct, [facility] [address] [facility] [id number] [address] [place] [phone] Oct, [facility] [address] [facility] [id number] [address] [place] [phone] Sep, [facility] [address] [facility] [id number] [address] [place] [phone] Sep, [facility] [address] [facility] [id number] [address] [place] [phone] Aug, [facility] [address] [facility] [id number] [address] [place] [phone] Aug, Generalized anxiety disorder F41.1 ; Major depression F32.9 and Attention deficit hyperactivity disorder F90.9 [facility] [address] [facility] [id number] [address] [place] [phone] Aug, [facility] [address] [facility] [id number] [address] [place] [phone] Aug, [facility] [address] [facility] [id number] [address] [place] [phone] Jun, [facility] [address] [facility] [id number] [address] [place] [phone] Jun, [facility] [address] [facility] [id number] [address] [place] [phone] Jun, Attention deficit hyperactiv ity disorder F90.9 ; Generalized anxiety disorder F41.1 and Major depression F32.9 [facility] [address] [facility] [id number] [address] [place] [phone] Jun, [facility] [address] [id number] [address] [place] [phone] Apr, [facility] [address] [id number] [address] [place] [phone] Mar, [facility] [address] [id number] [address] [place] [phone] Mar, [facility] [address] [id number] [address] [place] [phone] Feb, ADD (attention deficit disor nerissa) 314.00 ; Major depressive disorder, recurrent episode, moderate 296.32 and Generalized anxiety disorder 300.02 [facility] [address] [id number] [address] [place] [phone] Feb, [facility] [address] [id number] [address] [place] [phone] Feb, [facility] [address] [facility] [id number] [address] [place] [phone] Jan, [facility] [address] [id number] [address] [place] [phone] Jan, [facility] [address] [facility] [id number] [address] [place] [phone] Jan, [facility] [address] [facility] [id number] [address] [place] [phone] Jan, [facility] [address] [id number] [address] [place] [phone] Dec, [facility] [address] [id number] [address] [place] [phone] Dec, [facility] [address] [id number] [address] [place] [phone] Dec, [facility] [address] [facility] [id number] [address] [place] [phone] November, Attention deficit disorder o f childhood 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 314.00 ; Generalized anxiety disorder 300.02 and Major depressive disorder, recurrent episode, moderate 296.32 [facility] [address] [id number] [address] [place] [phone] November, [facility] [address] [id number] [address] [place] [phone] November, [facility] [address] [id number] [address] [place] [phone] November, Anxiety state 300.00 [facility] [address] [id number] [address] [place] [phone] Oct, [facility] [address] [id number] [address] [place] [address], [place] [address] Oct, [facility] [address] [id number] [address] [place] [phone] Sep, [facility] [address] [id number] [address] [place] [phone] Sep, [facility] [address] [id number] [address] [place] [phone] Sep, [facility] [address] [id number] [address] [place] [phone] Sep, [facility] [address] [id number] [address] [place] [phone] Sep, [facility] [address] [id number] [address] [place] [phone] Sep, [facility] [address] [id number] [address] [place] [phone] Aug, [facility] [address] [id number] [address] [place] [phone] Aug, [facility] [address] [id number] [address] [place] [phone] Aug, [facility] [address] [id number] [address] [place] [phone] Aug, [facility] [address] [id number] [address] [place] [address], [place] [address] Aug, 2014 [facility] [address] [id number] [address] [place] [address], [place] [address] Aug, 2014 [facility] [address] [id number] [address] [place] [address], [place] [address] Aug, [facility] [address] [id number] [address] [place] [address], [place] [address] Aug, [facility] [address] [id number] [address] [place] [address], [place] [address] Jul, [facility] [address] [id number] [address] [place] [address], [place] [address] Jul, [facility] [address] [id number] [address] [place] [address], [place] [address] Jul, [facility] [address] [id number] [address] [place] [address], [place] [address] Jul, [facility] [address] [id number] [address] [place] [address], [place] [address] Jul, [facility] [address] [id number] [address] [place] [address], [place] [address] Jul, [facility] [address] [id number] [address] [place] [address], [place] [address] Jun, [facility] [address] [id number] [address] [place] [address], [place] [address] Jun, [facility] [address] [id number] [address] [place] [address], [place] [address] Jun, [facility] [address] [id number] [address] [place] [address], [place] [address] Jun, [facility] [address] [id number] [address] [place] [address], [place] [address] Jun, [facility] [address] [id number] [address] [place] [address], [place] [address] Jun, [facility] [address] [id number] [address] [place] [address], [place] [address] May, [facility] [address] [id number] [address] [place] [address], [place] [address] May, [facility] [address] [id number] [address] [place] [address], [place] [address] May, [facility] [address] [id number] [address] [place] [address], [place] [address] May, [facility] [address] [id number] [address] [place] [address], [place] [address] May, [facility] [address] [id number] [address] [place] [address], [place] [address] May, [facility] [address] [id number] [address] [place] [address], [place] [address] May, [facility] [address] [id number] [address] [place] [address], [place] [address] May, [facility] [address] [id number] [address] [place] [address], [place] [address] May, [facility] [address] [id number] [address] [place] [address], [place] [address] May, [facility] [address] [id number] [address] [place] [address], [place] [address] Apr, [facility] [address] [id number] [address] [place] [address], [place] [address] Apr, [facility] [address] [id number] [address] [place] [address], [place] [address] Apr, [facility] [address] [id number] [address] [place] [address], [place] [address] Apr, [facility] [address] [id number] [address] [place] [address], [place] [address] 09 Apr, 2014 [facility] [address] [id number] [address] [place] [address], [place] [address] Apr, [facility] [address] [id number] [address] [place] [address], [place] [address] Apr, [facility] [address] [id number] [address] [place] [address], [place] [address] Apr, [facility] [address] [id number] [address] [place] [address], [place] [address] 15 Mar, 2014 [facility] [address] [id number] [address] [place] [address], [place] [address] 15 Mar, 2014 [facility] [address] [id number] [address] [place] [address], [place] [address] Mar, [facility] [address] [id number] [address] [place] [address], [place] [address] Mar, [facility] [address] [id number] [address] [place] [address], [place] [address] Mar, [facility] [address] [id number] [address] [place] [address], [place] [address] Mar, [facility] [address] [id number] [address] [place] [address], [place] [address] Feb, [facility] [address] [id number] [address] [place] [address], [place] [address] Feb, [facility] [address] [id number] [address] [place] [address], [place] [address] Feb, [facility] [address] [id number] [address] [place] [address], [place] [address] Feb, [facility] [address] [id number] [address] [place] [address], [place] [address] Feb, [facility] [address] [id number] [address] [place] [address], [place] [address] Feb, [facility] [address] [id number] [address] [place] [address], [place] [address] Jan, [facility] [address] [id number] [facility] [place] [address] Jan, [facility] [address] [id number] [facility] [place] [place] [address] Jan, [facility] [address] [id number] [facility] [place] [address] Jan, [facility] [address] [id number] [facility] [place] [address] Jan, [facility] [address] [id number] [facility] [place] [place] [address] Jan, [facility] [address] [id number] [address] [place] [address], [place] [address] Dec, [facility] [address] [id number] [address] [place] [address], [place] [address] Dec, [facility] [address] [id number] [address] [place] [address], [place] [address] Dec, [facility] [address] [id number] [address] [place] [address], [place] [address] Dec, [facility] [address] [id number] [address] [place] [address], [place] [address] Dec, [facility] [address] [id number] [address] [place] [address], [place] [address] November, [facility] [address] [id number] [address] [place] [address], [place] [address] November, [facility] [address] [id number] [address] [place] [address], [place] [address] November, [facility] [address] [id number] [address] [place] [address], [place] [address] November, [facility] [address] [id number] [address] [place] [address], [place] [address] November, [facility] [address] [id number] [address] [place] [address], [place] [address] November, [facility] [address] [id number] [address] [place] [address], [place] [address] November, [facility] [address] [id number] [address] [place] [address], [place] [address] November, [facility] [address] [id number] [address] [place] [address], [place] [address] Oct, [facility] [address] [id number] [address] [place] [address], [place] [address] Oct, [facility] [address] [id number] [address] [place] [address], [place] [address] Oct, [facility] [address] [id number] [address] [place] [address], [place] [address] Oct, [facility] [address] [id number] [address] [place] [address], [place] [address] Oct, [facility] [address] [id number] [address] [place] [address], [place] [address] Oct, [facility] [address] [id number] [address] [place] [address], [place] [address] Sep, [facility] [address] [id number] [address] [place] [address], [place] [address] Sep, [facility] [address] [id number] [address] [place] [address], [place] [address] Sep, [facility] [address] [id number] [address] [place] [address], [place] [address] Sep, [facility] [address] [id number] [address] [place] [address], [place] [address] Sep, [facility] [address] [id number] [address] [place] [address], [place] [address] Sep, [facility] [address] [id number] [address] [place] [address], [place] [address] Aug, [facility] [address] [id number] [address] [place] [address], [place] [address] Aug, [facility] [address] [id number] [address] [place] [address], [place] [address] Jul, [facility] [address] [id number] [address] [place] [address], [place] [address] Jul, [facility] [address] [id number] [address] [place] [address], [place] [address] Jul, [facility] [address] [id number] [address] [place] [address], [place] [address] Jul, [facility] [address] [id number] [address] [place] [address], [place] [address] Jul, [facility] [address] [id number] [address] [place] [address], [place] [address] Jul, [facility] [address] [id number] [address] [place] [address], [place] [address] Jul, [facility] [address] [id number] [address] [place] [address], [place] [address] Jul, [facility] [address] [id number] [address] [place] [address], [place] [address] Jul, [facility] [address] [id number] [address] [place] [address], [place] [address] Jul, [facility] [address] [id number] [address] [place] [address], [place] [address] Jul, [facility] [address] [id number] [address] [place] [address], [place] [address] Jul, [facility] [address] [id number] [address] [place] [address], [place] [address] Jun, [facility] [address] [id number] [address] [place] [address], [place] [address] Jun, [facility] [address] [id number] [address] [place] [address], [place] [address] Jun, [facility] [address] [id number] [address] [place] [address], [place] [address] Jun, [facility] [address] [id number] [address] [place] [address], [place] [address] Jun, [facility] [address] [id number] [address] [place] [address], [place] [address] Jun, [facility] [address] [id number] [address] [place] [address], [place] [address] Jun, [facility] [address] [id number] [address] [place] [address], [place] [address] Jun, [facility] [address] [id number] [address] [place] [address], [place] [address] May, [facility] [address] [id number] [address] [place] [address], [place] [address] May, [facility] [address] [id number] [address] [place] [phone] May, [facility] [address] [id number] [address] [place] [address], [place] [address] May, [facility] [address] [id number] [address] [place] [phone] Apr, [facility] [address] [id number] [address] [place] [phone] Apr, [facility] [address] [id number] [address] [place] [id number] 07 Apr, 2013 [facility] [address] [id number] [address] [place] [phone] 10 Mar, 2013 [facility] [address] [id number] [address] [place] [phone] 09 Feb, 2013 [facility] [address] [id number] [address] [place] [id number] 15 Jan, 2013 [facility] [address] [id number] [address] [place] [phone] Jan, [facility] [address] [facility] [id number] [address] [place] [address] Jan, IMMUNIZATIONS No Known Immunizations SOCIAL HISTORY Never Assessed REASON FOR VISIT [facility] [place] [facility] PLAN OF CARE VITAL SIGNS MEDICATIONS Medication Instructions Dosage Frequency Start Date End Date Duration S tatus amitriptyline 50 mg 1-2 tablet by Oral route 1 time pe r day qhs Sep, Active Brainard 10-325 mg take 1 tablet by ora l route every 6 hours as needed for pain PRN pain Sep, Active Xanax 2 mg 1 tablet by Oral route 3 times per day PRN anxi ety Sep, Active Simvastatin 20 mg 1 tablet by Oral route 1 time per day Aug, Active Naprosyn 500 mg 1 tablet by Oral route 2 times per day 0 Mar, Active Keflex 500 mg take 1 capsule by Oral route every 8 braden rs for 10 days Mar, Active Lisinopril 10 mg take 1 tablet by Oral route 1 time pe r day Take in am Aug, Active Adderall 30 mg 2 tablet by Oral route 1 time per day for A DHD Sep, Active RESULTS No Results PROCEDURES No Known procedures INSTRUCTIONS MEDICATIONS ADMINISTERED No Known Medications MEDICAL (GENERAL) HISTORY Type Description Date Hospitalization History UTI 12/04/2015
--- OUTSIDE RECORDS SUMMARY | 2020-01-12 11:33 | XMS REPORT ---
Author Author Cj Agudelo Doctor Organization [facility] Address Unknown Phone Unavailable Care Team Providers Care Image Processing Engineer Name Role Phone Migration, Doctor Unavailable Unavailable PROBLEMS Type Condition ICD9-CM Code [id number] Code Onset Dates Condition S tatus SNOMED Code Problem Pain in joint, lower leg 719.46 Activ e 287599006 Problem Attention deficit disorder o f childhood 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 314.00 Active 06274590 Problem Essential hypertension, benign 401.1 Active 2429907 Problem Anxiety state, unspecified 300.00 Act disha 059297156 Problem Other and unspecified hyperlipidemia 272.4 Active 65605401 Problem Major depressive disorder, recurrent episode, moderate 296 .32 Active 30485292 Problem PTSD (post-traumatic stress disorder) F43.10 Active 17134939 Problem Generalized anxiety disorder 300.02 A ctive 61237449 Problem Anxiety F41.9 Active 41662824 Problem Depressive disorder, not elsewhere classified 311 Active 91593887 Problem Attention deficit hyperactivity disorder F90.9 Active 463165196 Problem Major depression F32.9 Active 370 503520 Problem Generalized anxiety disorder F41.1 A ctive 49185360 Problem Major depressive disorder, recurrent, moderate F33 .1 Active 94394115 ALLERGIES No Information ENCOUNTERS Encounter Location Date Diagnosis [place] [address] [address] May, [place] [address] [address] May, Major depressive disorder, recurrent, mo derate F33.1 ; Anxiety F41.9 ; PTSD (post-traumatic stress disorder) F43.10 and Neurocognitive disorder R41.9 [place] [address] [address] Jun, [place] [address] [address] May, Generalized anxiety disorder F41.1 ; Luis Angel or depression F32.9 and Attention deficit hyperactivity disorder F90.9 [facility] [id number] [place] [address] Feb, [facility] [id number] [place] [address] Jan, [facility] [id number] [place] [address] Dec, [facility] [address] [place] [id number] [place] [address] Dec, [facility] [id number] [place] [address] Dec, Generalized anxiety disorder F41.1 ; Luis Angel or depression F32.9 and Attention deficit hyperactivity disorder F90.9 [facility] [address] [place] [id number] [place] [address] Oct, [facility] [id number] [place] [address] Oct, [facility] [id number] [place] [address] Sep, [facility] [id number] [place] [address] Sep, [facility] [id number] [place] [address] Aug, [facility] [id number] [place] [address] Aug, Generalized anxiety disorder F41.1 ; Luis Angel or depression F32.9 and Attention deficit hyperactivity disorder F90.9 [facility] [id number] [place] [address] Aug, [facility] [id number] [place] [address] Aug, [facility] [id number] [place] [address] Jun, [facility] [address] [place] [address] [id number] [place] [address] Jun, [facility] [id number] [place] [address] Jun, Attention deficit hyperactivity disorder F90.9 ; Generalized anxiety disorder F41.1 and Major depression F32.9 [facility] [address] [id number] [place] [address] Jun, [facility] [address] [id number] [place] [address] Apr, [facility] [id number] [place] [address] Mar, [facility] [address] [address] Mar, [facility] [id number] [place] [address] Feb, ADD (attention deficit disorder) 314.00 ; Major depressive disorder, recurrent episode, moderate 296.32 and Generalized anxiety disorder 300.02 [facility] [address] [place] [id number] [place] [address] Feb, [facility] [id number] [place] [address] Feb, [facility] [id number] [place] [address] Jan, [facility] [id number] [place] [address] Jan, [facility] [address] [id number] [place] [address] Jan, [facility] [id number] [place] [address] Jan, [facility] [address] [address] [id number] [place] [address] Dec, [facility] [address] [place] [address] [id number] [place] [address] Dec, [facility] [address] [place] [id number] [place] [address] Dec, [facility] [address] [place] [address] [id number] [place] [address] November, Attention deficit disorder of childhood 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 314.00 ; Generalized anxiety disorder 300.02 and Major depressive disorder, recurrent episode, moderate 296.32 [facility] [address] [place] [address] [id number] [place] [address] November, [facility] [address] [address] November, [facility] [address] [place] [id number] [place] [address] November, Anxiety state 300.00 [facility] [address] [address] Oct, [facility] [address] [address] Oct, [facility] [address] [place] [id number] [place] [address] Sep, [facility] [address] [place] [id number] [place] [address] Sep, [facility] [address] [address] Sep, [facility] [address] [place] [id number] [place] [address] Sep, [facility] [address] [place] [id number] [place] [address] Sep, [facility] [address] [address] [id number] [place] [address] Sep, [facility] [address] [place] [id number] [place] [address] Aug, [facility] [address] [id number] [place] [address] Aug, [facility] [address] [place] [address] [id number] [place] [address] Aug, [facility] [place] [facility] [id number] [place] [address] Aug, 2014 [facility] [place] [facility] [id number] [place] [address] Aug, 2014 [facility] [place] [facility] [id number] [place] [address] Aug, 2014 [facility] [place] [facility] [id number] [place] [address] Aug, [facility] [place] [facility] [id number] [place] [address] Aug, [facility] [place] [facility] [id number] [place] [address] Jul, [facility] [place] [facility] [id number] [place] [address] Jul, [facility] [place] [facility] [id number] [place] [address] Jul, [facility] [place] [facility] [id number] [place] [address] Jul, [facility] [place] [facility] [id number] [place] [address] Jul, [facility] [place] [facility] [id number] [place] [address] Jul, [facility] [place] [facility] [id number] [place] [address] Jun, [facility] [place] [facility] [id number] [place] [address] Jun, [facility] [place] [facility] [id number] [place] [address] Jun, [facility] [place] [facility] [id number] [place] [address] Jun, [facility] [place] [facility] [id number] [place] [address] Jun, [facility] [place] [facility] [id number] [place] [address] Jun, [facility] [place] [facility] [address] [facility] [id number] [place] [address] May, [facility] [place] [facility] [id number] [place] [address] May, [facility] [place] [facility] [id number] [place] [address] May, [facility] [place] [facility] [id number] [place] [address] May, [facility] [place] [facility] [id number] [place] [address] May, [facility] [place] [facility] [id number] [place] [address] May, [facility] [place] [facility] [id number] [place] [address] May, [facility] [place] [facility] [id number] [place] [address] May, [facility] [place] [facility] [id number] [place] [address] May, [facility] [place] [facility] [id number] [place] [address] May, [facility] [place] [facility] [id number] [place] [address] Apr, [facility] [place] [facility] [id number] [place] [address] Apr, [facility] [place] [facility] [id number] [place] [address] Apr, [facility] [place] [facility] [id number] [place] [address] Apr, [facility] [place] [facility] [id number] [place] [address] Apr, [facility] [place] [facility] [id number] [place] [address] Apr, [facility] [place] [facility] [address] [id number] [place] [address] Apr, [facility] [place] [facility] [address] [facility] [id number] [place] [address] Apr, [facility] [place] [facility] [address] [facility] [id number] [place] [address] Mar, [facility] [place] [facility] [id number] [place] [address] 15 Mar, 2014 [facility] [place] [facility] [address] [facility] [id number] [place] [address] Mar, [facility] [place] [facility] [address] [facility] [id number] [place] [address] Mar, [facility] [place] [facility] [id number] [place] [address] Mar, [facility] [place] [facility] [id number] [place] [address] Mar, [facility] [place] [facility] [id number] [place] [address] Feb, [facility] [place] [facility] [id number] [place] [address] Feb, [facility] [place] [facility] [id number] [place] [address] Feb, [facility] [place] [facility] [id number] [place] [address] Feb, [facility] [place] [facility] [id number] [place] [address] Feb, [facility] [place] [facility] [address] [facility] [id number] [place] [address] Feb, [facility] [place] [facility] [id number] [place] [address] Jan, [facility] [place] [facility] [id number] [place] [address] Jan, [facility] [place] [facility] [id number] [place] [address] Jan, [facility] [place] [facility] [address] [id number] [facility] [place] [address] Jan, [facility] [place] [facility] [address] [facility] [id number] [facility] [place] [address] Jan, [facility] [place] [facility] [address] [facility] [id number] [facility] [place] [address] Jan, [facility] [place] [facility] [address] [facility] [id number] [place] [address] Dec, [facility] [place] [facility] [address] [facility] [id number] [place] [address] Dec, [facility] [place] [facility] [address] [facility] [id number] [facility] [place] [address] Dec, [facility] [place] [facility] [address] [facility] [id number] [place] [address] Dec, [facility] [place] [facility] [id number] [facility] [place] [address] Dec, [facility] [place] [facility] [address] [facility] [id number] [facility] [place] [address] November, [facility] [place] [facility] [id number] [facility] [place] [address] November, [facility] [place] [facility] [id number] [place] [address] November, [facility] [place] [facility] [address] [facility] [address] [id number] [place] [address] November, [facility] [place] [facility] [address] [facility] [id number] [facility] [place] [address] November, [facility] [place] [facility] [address] [facility] [id number] [place] [address] November, [facility] [place] [facility] [address] [facility] [id number] [place] [address] November, [facility] [place] [facility] [id number] [place] [address] November, [facility] [place] [facility] [address] [id number] [place] [address] Oct, [facility] [place] [facility] [address] [facility] [id number] [facility] [place] [address] Oct, [facility] [place] [facility] [address] [facility] [id number] [place] [address] Oct, [facility] [place] [facility] [address] [facility] [address] [id number] [place] [address] Oct, [facility] [place] [facility] [address] [id number] [place] [address] Oct, [facility] [place] [facility] [address] [facility] [id number] [place] [address] Oct, [facility] [place] [facility] [address] [facility] [address] [id number] [place] [address] Sep, [facility] [place] [facility] [address] [facility] [address] [id number] [place] [address] Sep, [facility] [place] [facility] [address] [facility] [id number] [place] [address] Sep, [facility] [place] [facility] [address] [facility] [address] [id number] [place] [address] Sep, [facility] [place] [facility] [address] [facility] [address] [id number] [place] [address] Sep, [facility] [place] [facility] [address] [facility] [address] [id number] [place] [address] Sep, [facility] [place] [facility] [address] [facility] [address] [id number] [place] [address] Aug, [facility] [place] [facility] [address] [facility] [id number] [place] [address] Aug, [facility] [place] [facility] [address] [facility] [id number] [place] [address] Jul, [facility] [place] [facility] [address] [id number] [place] [address] Jul, [facility] [place] [facility] [address] [id number] [place] [address] Jul, [facility] [place] [facility] [address] [facility] [id number] [place] [address] 17 Jul, 2013 [facility] [place] [facility] [address] [facility] [id number] [place] [address] 15 Jul, 2013 [facility] [place] [facility] [address] [id number] [place] [address] 15 Jul, 2013 [facility] [place] [facility] [id number] [place] [address] 13 Jul, 2013 [facility] [place] [facility] [address] [facility] [id number] [place] [address] 13 Jul, 2013 [facility] [place] [facility] [id number] [place] [address] 07 Jul, 2013 [facility] [place] [facility] [address] [facility] [id number] [place] [address] 07 Jul, 2013 [facility] [place] [facility] [address] [facility] [id number] [place] [address] 07 Jul, 2013 [facility] [place] [facility] [address] [facility] [id number] [place] [address] 07 Jul, 2013 [facility] [place] [facility] [address] [id number] [place] [address] Jun, [facility] [place] [facility] [id number] [place] [address] 23 Jun, 2013 [facility] [place] [facility] [address] [id number] [place] [address] 20 Jun, 2013 [facility] [place] [facility] [address] [id number] [place] [address] 20 Jun, 2013 [facility] [place] [facility] [address] [id number] [place] [address] 13 Jun, 2013 [facility] [place] [facility] [address] [id number] [place] [address] 13 Jun, 2013 [facility] [place] [facility] [address] [id number] [place] [address] 11 Jun, 2013 [facility] [place] [facility] [address] [id number] [place] [address] Jun, [facility] [id number] [place] [address] May, [facility] [id number] [place] [address] May, [facility] [id number] [place] [address] May, [facility] [id number] [place] [address] May, [facility] [id number] [place] [address] Apr, [facility] [address] [address] Apr, [facility] [id number] [place] [address] Apr, [facility] [id number] [place] [address] Mar, [facility] [id number] [place] [address] Feb, [facility] [id number] [place] [address] Jan, [facility] [id number] [place] [address] Jan, [facility] [id number] [place] [address] Jan, IMMUNIZATIONS No Known Immunizations SOCIAL HISTORY [...]
--- OUTSIDE RECORDS SUMMARY | 2020-01-12 11:33 | XMS REPORT ---
Author Author Cj Agudelo Doctor Organization [facility] Address Unknown Phone Unavailable Care Team Providers Care Commercial Intern Name Role Phone Migration, Doctor Unavailable Unavailable PROBLEMS Type Condition ICD9-CM Code QDD96-XV Code Onset Dates Condition S tatus SNOMED Code Problem Pain in joint, lower leg 719.46 Activ e 796952778 Problem Attention deficit disorder o f childhood 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 314.00 Active 21016525 Problem Essential hypertension, benign 401.1 Active 6319574 Problem Anxiety state, unspecified 300.00 Act disha 674408516 Problem Other and unspecified hyperlipidemia 272.4 Active 54844285 Problem Major depressive disorder, recurrent episode, moderate 296 .32 Active 60600636 Problem PTSD (post-traumatic stress disorder) F43.10 Active 44991145 Problem Generalized anxiety disorder 300.02 A ctive 17971488 Problem Anxiety F41.9 Active 95760205 Problem Depressive disorder, not elsewhere classified 311 Active 10478390 Problem Attention deficit hyperactivity disorder F90.9 Active 024094885 Problem Major depression F32.9 Active 370 366697 Problem Generalized anxiety disorder F41.1 A ctive 88819354 Problem Major depressive disorder, recurrent, moderate F33 .1 Active 67632647 ALLERGIES No Information ENCOUNTERS Encounter Location Date Diagnosis [place] [address] [address] May, [place] [address] [address] May, Major depressive disorder, recurrent, mo derate F33.1 ; Anxiety F41.9 ; PTSD (post-traumatic stress disorder) F43.10 and Neurocognitive disorder R41.9 [place] [address] [address] Jun, [place] [address] [address] May, Generalized anxiety disorder F41.1 ; Luis Angel or depression F32.9 and Attention deficit hyperactivity disorder F90.9 [facility] [address] [id number] [place] [address] Feb, [facility] [address] [id number] [place] [address] Jan, [facility] [address] [id number] [place] [address] Dec, [facility] [address] [place] [id number] [place] [address] Dec, [facility] [address] [id number] [place] [address] Dec, Generalized anxiety disorder F41.1 ; Luis Angel or depression F32.9 and Attention deficit hyperactivity disorder F90.9 [facility] [id number] [place] [address] Oct, [facility] [id number] [place] [address] Oct, [facility] [id number] [place] [address] Sep, [facility] [id number] [place] [address] Sep, [facility] [id number] [place] [address] Aug, [facility] [id number] [place] [address] Aug, Generalized anxiety disorder F41.1 ; Luis Angel or depression F32.9 and Attention deficit hyperactivity disorder F90.9 [facility] [id number] [place] [address] Aug, [facility] [id number] [place] [address] Aug, [facility] [address] [id number] [place] [address] Jun, [facility] [id number] [place] [address] Jun, [facility] [id number] [place] [address] Jun, Attention deficit hyperactivity disorder F90.9 ; Generalized anxiety disorder F41.1 and Major depression F32.9 [facility] [address] [id number] [place] [address] Jun, [facility] [address] [place] [id number] [place] [address] Apr, [facility] [id number] [place] [address] Mar, [facility] [address] [address] Mar, [facility] [address] [address] [id number] [place] [address] Feb, ADD (attention deficit disorder) 314.00 ; Major depressive disorder, recurrent episode, moderate 296.32 and Generalized anxiety disorder 300.02 [facility] [id number] [place] [address] Feb, [facility] [address] [place] [address] [id number] [place] [address] Feb, [facility] [id number] [place] [address] Jan, [facility] [address] [id number] [place] [address] Jan, [facility] [address] [id number] [place] [address] Jan, [facility] [address] [id number] [place] [address] Jan, [facility] [address] [id number] [place] [address] Dec, [facility] [address] [place] [address] [id number] [place] [address] Dec, [facility] [address] [place] [id number] [place] [address] Dec, [facility] [address] [id number] [place] [address] November, Attention deficit disorder of childhood 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 314.00 ; Generalized anxiety disorder 300.02 and Major depressive disorder, recurrent episode, moderate 296.32 [facility] [address] [place] [id number] [place] [address] November, [facility] [address] [address] November, [facility] [address] [place] [id number] [place] [address] November, Anxiety state 300.00 [facility] [address] [address] Oct, [facility] [address] [address] Oct, [facility] [address] [place] [id number] [place] [address] Sep, [facility] [address] [place] [id number] [place] [address] Sep, [facility] [address] [address] Sep, [facility] [address] [place] [id number] [place] [address] Sep, [facility] [address] [place] [id number] [place] [address] Sep, [facility] [address] [place] [id number] [place] [address] Sep, [facility] [address] [place] [id number] [place] [address] Aug, [facility] [address] [place] [id number] [place] [address] Aug, [facility] [address] [place] [id number] [place] [address] Aug, [facility] [place] [facility] [address] [id number] [place] [address] Aug, 2014 [facility] [place] [facility] [address] [id number] [place] [address] Aug, 2014 [facility] [place] [facility] [address] [id number] [place] [address] Aug, 2014 [facility] [place] [facility] [address] [id number] [place] [address] Aug, [facility] [place] [facility] [address] [id number] [place] [address] Aug, [facility] [place] [facility] [address] [id number] [place] [address] Jul, [facility] [place] [facility] [address] [id number] [place] [address] Jul, [facility] [place] [facility] [address] [id number] [place] [address] Jul, [facility] [place] [facility] [address] [id number] [place] [address] Jul, [facility] [place] [facility] [address] [id number] [place] [address] Jul, [facility] [place] [facility] [address] [id number] [place] [address] Jul, [facility] [place] [facility] [address] [id number] [place] [address] Jun, [facility] [place] [facility] [address] [id number] [place] [address] Jun, [facility] [place] [facility] [address] [id number] [place] [address] Jun, [facility] [place] [facility] [address] [id number] [place] [address] Jun, [facility] [place] [facility] [address] [id number] [place] [address] Jun, [facility] [place] [facility] [address] [id number] [place] [address] Jun, [facility] [place] [facility] [address] [facility] [id number] [place] [address] May, [facility] [place] [facility] [address] [id number] [place] [address] May, [facility] [place] [facility] [address] [id number] [place] [address] May, [facility] [place] [facility] [address] [id number] [place] [address] May, [facility] [place] [facility] [address] [id number] [place] [address] May, [facility] [place] [facility] [address] [id number] [place] [address] May, [facility] [place] [facility] [address] [id number] [place] [address] May, [facility] [place] [facility] [address] [id number] [place] [address] May, [facility] [place] [facility] [address] [id number] [place] [address] May, [facility] [place] [facility] [address] [id number] [place] [address] May, [facility] [place] [facility] [address] [id number] [place] [address] Apr, [facility] [place] [facility] [address] [id number] [place] [address] Apr, [facility] [place] [facility] [address] [id number] [place] [address] Apr, [facility] [place] [facility] [address] [id number] [place] [address] Apr, [facility] [place] [facility] [address] [id number] [place] [address] Apr, [facility] [place] [facility] [address] [id number] [place] [address] Apr, [facility] [place] [facility] [address] [id number] [place] [address] Apr, [facility] [place] [facility] [address] [facility] [id number] [place] [address] Apr, [facility] [place] [facility] [address] [facility] [id number] [place] [address] Mar, [facility] [place] [facility] [address] [id number] [place] [address] 15 Mar, 2014 [facility] [place] [facility] [address] [facility] [id number] [place] [address] Mar, [facility] [place] [facility] [address] [facility] [id number] [place] [address] Mar, [facility] [place] [facility] [address] [id number] [place] [address] Mar, [facility] [place] [facility] [address] [id number] [place] [address] Mar, [facility] [place] [facility] [address] [id number] [place] [address] Feb, [facility] [place] [facility] [address] [id number] [place] [address] Feb, [facility] [place] [facility] [address] [id number] [place] [address] Feb, [facility] [place] [facility] [address] [id number] [place] [address] Feb, [facility] [place] [facility] [address] [id number] [place] [address] Feb, [facility] [place] [facility] [address] [facility] [id number] [place] [address] Feb, [facility] [place] [facility] [address] [id number] [place] [address] Jan, [facility] [place] [facility] [address] [id number] [place] [address] Jan, [facility] [place] [facility] [address] [id number] [place] [address] Jan, [facility] [place] [facility] [address] [id number] [facility] [place] [address] Jan, [facility] [place] [facility] [address] [facility] [id number] [facility] [place] [address] Jan, [facility] [place] [facility] [address] [facility] [id number] [facility] [place] [address] Jan, [facility] [place] [facility] [address] [facility] [id number] [place] [address] Dec, [facility] [place] [facility] [address] [facility] [id number] [place] [address] Dec, [facility] [place] [facility] [address] [facility] [id number] [facility] [place] [address] Dec, [facility] [place] [facility] [address] [facility] [id number] [place] [address] Dec, [facility] [place] [facility] [address] [id number] [facility] [place] [address] Dec, [facility] [place] [facility] [address] [facility] [id number] [facility] [place] [address] November, [facility] [place] [facility] [address] [id number] [facility] [place] [address] November, [facility] [place] [facility] [address] [id number] [place] [address] November, [facility] [place] [facility] [address] [id number] [place] [address] November, [facility] [place] [facility] [address] [facility] [id number] [facility] [place] [address] November, [facility] [place] [facility] [address] [facility] [id number] [place] [address] November, [facility] [place] [facility] [address] [facility] [id number] [place] [address] November, [facility] [place] [facility] [address] [id number] [place] [address] November, [facility] [place] [facility] [address] [id number] [place] [address] Oct, [facility] [place] [facility] [address] [facility] [id number] [facility] [place] [address] Oct, [facility] [place] [facility] [address] [facility] [id number] [place] [address] Oct, [facility] [place] [facility] [address] [id number] [place] [address] Oct, [facility] [place] [facility] [address] [id number] [place] [address] Oct, [facility] [place] [facility] [address] [facility] [id number] [place] [address] Oct, [facility] [place] [facility] [address] [id number] [place] [address] Sep, [facility] [place] [facility] [address] [id number] [place] [address] Sep, [facility] [place] [facility] [address] [id number] [place] [address] Sep, [facility] [place] [facility] [address] [id number] [place] [address] Sep, [facility] [place] [facility] [address] [id number] [place] [address] Sep, [facility] [place] [facility] [address] [id number] [place] [address] Sep, [facility] [place] [facility] [address] [id number] [place] [address] Aug, [facility] [place] [facility] [address] [facility] [id number] [place] [address] Aug, [facility] [place] [facility] [address] [id number] [place] [address] Jul, [facility] [place] [facility] [address] [id number] [place] [address] Jul, [facility] [place] [facility] [address] [id number] [place] [address] Jul, [facility] [place] [facility] [address] [id number] [place] [address] 17 Jul, 2013 [facility] [place] [facility] [address] [id number] [place] [address] 15 Jul, 2013 [facility] [place] [facility] [address] [id number] [place] [address] 15 Jul, 2013 [facility] [place] [facility] [address] [id number] [place] [address] 13 Jul, 2013 [facility] [place] [facility] [address] [id number] [place] [address] 13 Jul, 2013 [facility] [place] [facility] [address] [id number] [place] [address] 07 Jul, 2013 [facility] [place] [facility] [address] [id number] [place] [address] 07 Jul, 2013 [facility] [place] [facility] [address] [id number] [place] [address] 07 Jul, 2013 [facility] [place] [facility] [address] [id number] [place] [address] 07 Jul, 2013 [facility] [place] [facility] [address] [id number] [place] [address] Jun, [facility] [place] [facility] [address] [id number] [place] [address] 23 Jun, 2013 [facility] [place] [facility] [address] [id number] [place] [address] 20 Jun, 2013 [facility] [place] [facility] [address] [id number] [place] [address] 20 Jun, 2013 [facility] [place] [facility] [address] [id number] [place] [address] 13 Jun, 2013 [facility] [place] [facility] [address] [id number] [place] [address] 13 Jun, 2013 [facility] [place] [facility] [address] [id number] [place] [address] 11 Jun, 2013 [facility] [place] [facility] [address] [id number] [place] [address] Jun, [facility] [id number] [place] [address] May, [facility] [id number] [place] [address] May, [facility] [id number] [place] [address] May, [facility] [id number] [place] [address] May, [facility] [id number] [place] [address] Apr, [facility] [address] [address] Apr, [facility] [id number] [place] [address] Apr, [facility] [id number] [place] [address] Mar, [facility] [id number] [place] [address] Feb, [facility] [id number] [place] [address] Jan, [facility] [id number] [place] [address] Jan, [facility] [id number] [place] [address] Jan, IMMUNIZATIONS No Known Immunizations SOCIAL HISTORY [...]
--- OUTSIDE RECORDS SUMMARY | 2020-01-12 11:33 | XMS REPORT ---
Author Author Cj PADILLA Organization [facility] Address [address] [place] [address] Care Team Providers Care Storeroom Keeper Name Role Phone JUAN JOSÉ PADILLA Unavailable PROBLEMS Type Condition ICD9-CM Code SJS02-FA Code Onset Dates Condition S tatus SNOMED Code Problem Pain in joint, lower leg 719.46 Activ e 103732856 Problem Attention deficit disorder o f childhood 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 314.00 Active 16005547 Problem Essential hypertension, benign 401.1 Active 3928653 Problem Anxiety state, unspecified 300.00 Act disha 575917678 Problem Other and unspecified hyperlipidemia 272.4 Active 24888260 Problem Major depressive disorder, recurrent episode, moderate 296 .32 Active 10779353 Problem PTSD (post-traumatic stress disorder) F43.10 Active 46809835 Problem Generalized anxiety disorder 300.02 A ctive 56284352 Problem Anxiety F41.9 Active 44458251 Problem Depressive disorder, not elsewhere classified 311 Active 85197532 Problem Attention deficit hyperactivity disorder F90.9 Active 654492345 Problem Major depression F32.9 Active 370 104145 Problem Generalized anxiety disorder F41.1 A ctive 40031071 Problem Major depressive disorder, recurrent, moderate F33 .1 Active 83172873 ALLERGIES No Information ENCOUNTERS Encounter Location Date Diagnosis [place] [address] [address] May, [place] [address] [address] May, Major depressive disorder, recurrent, mo derate F33.1 ; Anxiety F41.9 ; PTSD (post-traumatic stress disorder) F43.10 and Neurocognitive disorder R41.9 [place] [address] [address] 13 Jun, 2016 [facility] [address] [address] May, Generalized anxiety disorder F41.1 ; Luis Angel or depression F32.9 and Attention deficit hyperactivity disorder F90.9 [facility] [address] [address] Feb, [facility] [address] [place] [address] [id number] [place] [address] Jan, [facility] [address] [address] Dec, [facility] [address] [address] Dec, [facility] [address] [address] Dec, Generalized anxiety disorder F41.1 ; Luis Angel or depression F32.9 and Attention deficit hyperactivity disorder F90.9 [facility] [address] [address] Oct, [facility] [address] [address] Oct, [facility] [address] [address] Sep, [facility] [address] [address] Sep, [facility] [address] [address] Aug, [facility] [address] [address] Aug, Generalized anxiety disorder F41.1 ; Luis Angel or depression F32.9 and Attention deficit hyperactivity disorder F90.9 [facility] [address] [address] Aug, [facility] [address] [address] Aug, [facility] [address] [address] Jun, [facility] [address] [place] [id number] [place] [address] Jun, [facility] [address] [address] Jun, Attention deficit hyperactivity disorder F90.9 ; Generalized anxiety disorder F41.1 and Major depression F32.9 [facility] [address] [address] Jun, [facility] [address] [address] Apr, [facility] [address] [address] Mar, [facility] [address] [address] Mar, [facility] [address] [address] Feb, ADD (attention deficit disorder) 314.00 ; Major depressive disorder, recurrent episode, moderate 296.32 and Generalized anxiety disorder 300.02 [facility] [address] [address] Feb, [facility] [address] [address] Feb, [facility] [address] [address] Jan, [facility] [address] [address] Jan, [facility] [address] [address] Jan, [facility] [address] [address] Jan, [facility] [address] [place] [id number] [place] [address] Dec, [facility] [address] [address] Dec, [facility] [address] [place] [id number] [place] [address] Dec, [facility] [address] [place] [address] [id number] [place] [address] November, Attention deficit disorder of childhood 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 314.00 ; Generalized anxiety disorder 300.02 and Major depressive disorder, recurrent episode, moderate 296.32 [facility] [address] [place] [id number] [place] [address] November, [facility] [address] [place] [address] [id number] [place] [address] November, [facility] [address] [place] [address] [id number] [place] [address] November, Anxiety state 300.00 [facility] [address] [place] [address] [id number] [place] [address] Oct, [facility] [address] [place] [address] [id number] [place] [address] Oct, [facility] [address] [place] [address] [id number] [place] [address] Sep, [facility] [address] [place] [address] [id number] [place] [address] Sep, [facility] [address] [place] [address] [id number] [place] [address] Sep, [facility] [address] [place] [id number] [place] [address] Sep, [facility] [address] [place] [id number] [place] [address] Sep, [facility] [address] [place] [id number] [place] [address] Sep, [facility] [address] [place] [id number] [place] [address] Aug, [facility] [address] [place] [id number] [place] [address] Aug, [facility] [address] [id number] [place] [address] 10 Aug, 2014 [facility] [address] [id number] [place] [address] Aug, 2014 [facility] [address] [id number] [place] [address] Aug, 2014 [facility] [address] [id number] [place] [address] Aug, 2014 [facility] [address] [id number] [place] [address] Aug, [facility] [address] [id number] [place] [address] Aug, [facility] [address] [id number] [place] [address] Jul, [facility] [address] [id number] [place] [address] Jul, [facility] [address] [id number] [place] [address] Jul, [facility] [address] [id number] [place] [address] Jul, [facility] [address] [id number] [place] [address] Jul, [facility] [address] [id number] [place] [address] Jul, [facility] [address] [id number] [place] [address] Jun, [facility] [address] [id number] [place] [address] Jun, [facility] [address] [id number] [place] [address] Jun, [facility] [address] [id number] [place] [address] Jun, [facility] [address] [id number] [place] [address] Jun, [facility] [address] [facility] [id number] [place] [address] Jun, [facility] [address] [facility] [id number] [place] [address] May, [facility] [address] [id number] [place] [address] May, [facility] [address] [id number] [place] [address] May, [facility] [address] [facility] [id number] [place] [address] May, [facility] [address] [id number] [place] [address] May, [facility] [address] [id number] [place] [address] May, [facility] [address] [id number] [place] [address] May, [facility] [address] [id number] [place] [address] May, [facility] [address] [id number] [place] [address] May, [facility] [address] [id number] [place] [address] May, [facility] [address] [id number] [place] [address] Apr, [facility] [address] [facility] [id number] [place] [address] Apr, [facility] [address] [id number] [place] [address] Apr, [facility] [address] [id number] [place] [address] Apr, [facility] [address] [id number] [place] [address] Apr, [facility] [address] [id number] [place] [address] Apr, [facility] [address] [id number] [place] [address] Apr, [facility] [address] [facility] [id number] [place] [address] Apr, [facility] [address] [id number] [place] [address] 15 Mar, 2014 [facility] [address] [facility] [id number] [place] [address] 15 Mar, 2014 [facility] [address] [id number] [place] [address] Mar, [facility] [address] [id number] [place] [address] Mar, [facility] [address] [id number] [place] [address] Mar, [facility] [address] [id number] [place] [address] Mar, [facility] [address] [id number] [place] [address] Feb, [facility] [address] [id number] [place] [address] Feb, [facility] [address] [id number] [place] [address] Feb, [facility] [address] [id number] [place] [address] Feb, [facility] [address] [facility] [id number] [place] [address] Feb, [facility] [address] [id number] [place] [address] Feb, [facility] [address] [id number] [place] [address] Jan, [facility] [address] [id number] [place] [address] Jan, [facility] [address] [id number] [place] [address] Jan, [facility] [address] [facility] [id number] [place] [address] Jan, [facility] [address] [facility] [id number] [place] [address] Jan, [facility] [address] [id number] [place] [address] Jan, [facility] [address] [facility] [id number] [place] [address] Dec, [facility] [address] [id number] [place] [address] Dec, [facility] [address] [id number] [place] [address] Dec, [facility] [address] [id number] [place] [address] Dec, [facility] [address] [id number] [place] [address] Dec, [facility] [address] [id number] [place] [address] November, [facility] [address] [id number] [place] [address] November, [facility] [address] [id number] [place] [address] November, [facility] [address] [id number] [place] [address] November, [facility] [address] [facility] [id number] [place] [address] November, [facility] [address] [id number] [place] [address] November, [facility] [address] [id number] [place] [address] November, [facility] [address] [id number] [place] [address] November, [facility] [address] [facility] [id number] [place] [address] Oct, [facility] [address] [facility] [id number] [place] [address] Oct, [facility] [address] [id number] [place] [address] Oct, [facility] [address] [id number] [place] [address] Oct, [facility] [address] [facility] [id number] [place] [address] Oct, [facility] [address] [id number] [place] [address] Oct, [facility] [address] [id number] [place] [address] Sep, [facility] [address] [id number] [place] [address] Sep, [facility] [address] [id number] [place] [address] Sep, [facility] [address] [id number] [place] [address] Sep, [facility] [address] [id number] [place] [address] Sep, [facility] [address] [id number] [place] [address] Sep, [facility] [address] [facility] [id number] [place] [address] Aug, [facility] [address] [facility] [id number] [place] [address] Aug, [facility] [address] [id number] [place] [address] Jul, [facility] [address] [id number] [place] [address] Jul, [facility] [address] [id number] [place] [address] 17 Jul, 2013 [facility] [address] [facility] [id number] [place] [address] 17 Jul, 2013 [facility] [address] [id number] [place] [address] 15 Jul, 2013 [facility] [address] [id number] [place] [address] 15 Jul, 2013 [facility] [address] [id number] [place] [address] 13 Jul, 2013 [facility] [address] [id number] [place] [address] Jul, [facility] [address] [id number] [place] [address] Jul, [facility] [address] [id number] [place] [address] Jul, [facility] [address] [id number] [place] [address] 07 Jul, 2013 [facility] [address] [id number] [place] [address] Jul, [facility] [address] [id number] [place] [address] Jun, [facility] [address] [id number] [place] [address] Jun, [facility] [address] [id number] [place] [address] Jun, [facility] [address] [id number] [place] [address] 20 Jun, 2013 [facility] [address] [id number] [place] [address] 13 Jun, 2013 [facility] [address] [id number] [place] [address] 13 Jun, 2013 [facility] [address] [id number] [place] [address] Jun, [facility] [address] [id number] [place] [address] Jun, [facility] [id number] [place] [address] May, [facility] [address] [id number] [place] [address] May, [facility] [id number] [place] [address] May, [facility] [id number] [place] [address] May, [facility] [id number] [place] [address] Apr, [facility] [id number] [place] [address] Apr, [facility] [id number] [place] [address] Apr, [facility] [id number] [place] [address] Mar, [facility] [id number] [place] [address] Feb, [facility] [id number] [place] [address] Jan, [facility] [id number] [place] [address] Jan, [facility] [id number] [place] [address] Jan, IMMUNIZATIONS No Known Immunizations SOCIAL HISTORY [...]
--- OUTSIDE RECORDS SUMMARY | 2020-01-12 11:33 | XMS REPORT ---
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 Active 16136517 Problem Essential hypertension, benign 401.1 Active 5383622 Problem Anxiety state, unspecified 300.00 Act disha 734698283 Problem Other and unspecified hyperlipidemia 272.4 Active 06113776 Problem Major depressive disorder, recurrent episode, moderate 296 .32 Active 06949800 Problem PTSD (post-traumatic stress disorder) F43.10 Active 15226563 Problem Generalized anxiety disorder 300.02 A ctive 92287771 Problem Anxiety F41.9 Active 60273845 Problem Depressive disorder, not elsewhere classified 311 Active 49059464 Problem Attention deficit hyperactivity disorder F90.9 Active 134485752 Problem Major depression F32.9 Active 370 743289 Problem Generalized anxiety disorder F41.1 A ctive 38211626 Problem Major depressive disorder, recurrent, moderate F33 .1 Active 19934511 ALLERGIES No Information ENCOUNTERS Encounter Location Date Diagnosis [place] [id number] [address] May, [place] [address] [address] May, Major depressive disorder, recurrent, mo derate F33.1 ; Anxiety F41.9 ; PTSD (post-traumatic stress disorder) F43.10 and Neurocognitive disorder R41.9 [place] [address] [address] 13 Jun, 2016 [facility] [address] [address] May, Generalized anxiety disorder F41.1 ; Luis Angel or depression F32.9 and Attention deficit hyperactivity disorder F90.9 [facility] [address] [address] Feb, [facility] [address] [place] [id number] [place] [address] Jan, [facility] [address] [address] Dec, [facility] [address] [address] Dec, [facility] [address] [address] Dec, Generalized anxiety disorder F41.1 ; Luis Angel or depression F32.9 and Attention deficit hyperactivity disorder F90.9 [facility] [address] [address] Oct, [facility] [address] [address] Oct, [facility] [address] [address] Sep, [facility] [address] [address] Sep, [facility] [address] [address] Aug, [facility] [address] [address] Aug, Generalized anxiety disorder F41.1 ; Luis Angel or depression F32.9 and Attention deficit hyperactivity disorder F90.9 [facility] [address] [address] Aug, [facility] [address] [address] Aug, [facility] [address] [address] Jun, [facility] [address] [place] [id number] [place] [address] Jun, [facility] [address] [address] Jun, Attention deficit hyperactivity disorder F90.9 ; Generalized anxiety disorder F41.1 and Major depression F32.9 [facility] [address] [address] Jun, [facility] [address] [address] Apr, [facility] [address] [address] Mar, [facility] [address] [address] Mar, [facility] [address] [address] Feb, ADD (attention deficit disorder) 314.00 ; Major depressive disorder, recurrent episode, moderate 296.32 and Generalized anxiety disorder 300.02 [facility] [address] [address] Feb, [facility] [address] [address] Feb, [facility] [address] [address] Jan, [facility] [address] [address] Jan, [facility] [address] [address] Jan, [facility] [address] [address] Jan, [facility] [address] [place] [id number] [place] [address] Dec, [facility] [address] [address] Dec, [facility] [address] [place] [id number] [place] [address] Dec, [facility] [address] [place] [address] [id number] [place] [address] November, Attention deficit disorder of childhood 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 314.00 ; Generalized anxiety disorder 300.02 and Major depressive disorder, recurrent episode, moderate 296.32 [facility] [address] [place] [id number] [place] [address] November, [facility] [address] [address] [id number] [place] [address] November, [facility] [address] [address] [id number] [place] [address] November, Anxiety state 300.00 [facility] [address] [place] [id number] [place] [address] Oct, [facility] [address] [place] [id number] [place] [address] Oct, [facility] [address] [place] [id number] [place] [address] Sep, [facility] [address] [place] [id number] [place] [address] Sep, [facility] [address] [place] [id number] [place] [address] Sep, [facility] [address] [place] [id number] [place] [address] Sep, [facility] [address] [place] [id number] [place] [address] Sep, [facility] [address] [address] [id number] [place] [address] Sep, [facility] [address] [id number] [place] [address] Aug, [facility] [address] [address] [id number] [place] [address] Aug, [facility] [address] [id number] [place] [address] 10 Aug, 2014 [facility] [address] [id number] [place] [address] Aug, 2014 [facility] [address] [id number] [place] [address] Aug, 2014 [facility] [address] [id number] [place] [address] Aug, 2014 [facility] [address] [id number] [place] [address] Aug, [facility] [address] [id number] [place] [address] Aug, [facility] [address] [id number] [place] [address] Jul, [facility] [address] [id number] [place] [address] Jul, [facility] [address] [id number] [place] [address] Jul, [facility] [address] [id number] [place] [address] Jul, [facility] [address] [id number] [place] [address] Jul, [facility] [address] [id number] [place] [address] Jul, [facility] [address] [id number] [place] [address] Jun, [facility] [address] [id number] [place] [address] Jun, [facility] [address] [id number] [place] [address] Jun, [facility] [address] [id number] [place] [address] Jun, [facility] [address] [id number] [place] [address] Jun, [facility] [address] [facility] [id number] [place] [address] Jun, [facility] [address] [facility] [id number] [place] [address] May, [facility] [address] [id number] [place] [address] May, [facility] [address] [id number] [place] [address] May, [facility] [address] [facility] [id number] [place] [address] May, [facility] [address] [id number] [place] [address] May, [facility] [address] [id number] [place] [address] May, [facility] [address] [id number] [place] [address] May, [facility] [address] [id number] [place] [address] May, [facility] [address] [id number] [place] [address] May, [facility] [address] [id number] [place] [address] May, [facility] [address] [id number] [place] [address] Apr, [facility] [address] [facility] [id number] [place] [address] Apr, [facility] [address] [id number] [place] [address] Apr, [facility] [address] [id number] [place] [address] Apr, [facility] [address] [id number] [place] [address] Apr, [facility] [address] [id number] [place] [address] Apr, [facility] [address] [id number] [place] [address] Apr, [facility] [address] [facility] [id number] [place] [address] Apr, [facility] [address] [id number] [place] [address] 15 Mar, 2014 [facility] [address] [facility] [id number] [place] [address] 15 Mar, 2014 [facility] [address] [id number] [place] [address] Mar, [facility] [address] [id number] [place] [address] Mar, [facility] [address] [id number] [place] [address] Mar, [facility] [address] [id number] [place] [address] Mar, [facility] [address] [id number] [place] [address] Feb, [facility] [address] [id number] [place] [address] Feb, [facility] [address] [id number] [place] [address] Feb, [facility] [address] [id number] [place] [address] Feb, [facility] [address] [facility] [id number] [place] [address] Feb, [facility] [address] [id number] [place] [address] Feb, [facility] [address] [id number] [place] [address] Jan, [facility] [address] [id number] [place] [address] Jan, [facility] [address] [id number] [place] [address] Jan, [facility] [address] [facility] [id number] [place] [address] Jan, [facility] [address] [facility] [id number] [place] [address] Jan, [facility] [address] [id number] [place] [address] Jan, [facility] [address] [facility] [id number] [place] [address] Dec, [facility] [address] [id number] [place] [address] Dec, [facility] [address] [id number] [place] [address] Dec, [facility] [address] [id number] [place] [address] Dec, [facility] [address] [id number] [place] [address] Dec, [facility] [address] [id number] [place] [address] November, [facility] [address] [id number] [place] [address] November, [facility] [address] [id number] [place] [address] November, [facility] [address] [id number] [place] [address] November, [facility] [address] [facility] [id number] [place] [address] November, [facility] [address] [id number] [place] [address] November, [facility] [address] [id number] [place] [address] November, [facility] [address] [id number] [place] [address] November, [facility] [address] [facility] [id number] [place] [address] Oct, [facility] [address] [facility] [id number] [place] [address] Oct, [facility] [address] [id number] [place] [address] Oct, [facility] [address] [id number] [place] [address] Oct, [facility] [address] [facility] [id number] [place] [address] Oct, [facility] [address] [id number] [place] [address] Oct, [facility] [address] [id number] [place] [address] Sep, [facility] [address] [id number] [place] [address] Sep, [facility] [address] [id number] [place] [address] Sep, [facility] [address] [id number] [place] [address] Sep, [facility] [address] [id number] [place] [address] Sep, [facility] [address] [id number] [place] [address] Sep, [facility] [address] [facility] [id number] [place] [address] Aug, [facility] [address] [facility] [id number] [place] [address] Aug, [facility] [address] [id number] [place] [address] Jul, [facility] [address] [id number] [place] [address] Jul, [facility] [address] [id number] [place] [address] 17 Jul, 2013 [facility] [address] [facility] [id number] [place] [address] 17 Jul, 2013 [facility] [address] [id number] [place] [address] 15 Jul, 2013 [facility] [address] [id number] [place] [address] 15 Jul, 2013 [facility] [address] [id number] [place] [address] 13 Jul, 2013 [facility] [address] [id number] [place] [address] Jul, [facility] [address] [id number] [place] [address] Jul, [facility] [address] [id number] [place] [address] Jul, [facility] [address] [id number] [place] [address] 07 Jul, 2013 [facility] [address] [id number] [place] [address] Jul, [facility] [address] [id number] [place] [address] Jun, [facility] [address] [id number] [place] [address] Jun, [facility] [address] [id number] [place] [address] Jun, [facility] [address] [id number] [place] [address] 20 Jun, 2013 [facility] [address] [id number] [place] [address] 13 Jun, 2013 [facility] [address] [id number] [place] [address] 13 Jun, 2013 [facility] [address] [id number] [place] [address] Jun, [facility] [address] [id number] [place] [address] Jun, [facility] [id number] [place] [address] May, [facility] [address] [id number] [place] [address] May, [facility] [id number] [place] [address] May, [facility] [id number] [place] [address] May, [facility] [id number] [place] [address] Apr, [facility] [id number] [place] [address] Apr, [facility] [id number] [place] [address] Apr, [facility] [id number] [place] [address] Mar, [facility] [id number] [place] [address] Feb, [facility] [id number] [place] [address] Jan, [facility] [id number] [place] [address] Jan, [facility] [id number] [place] [address] Jan, IMMUNIZATIONS No Known Immunizations SOCIAL HISTORY [...]
--- OUTSIDE RECORDS SUMMARY | 2020-01-12 11:33 | XMS REPORT ---
Author Cj Ordoñez Organization [employer] Address Unknown Phone Unavailable Care Team Providers Care Looping Machine Operator Name Role Phone JULIO LINDO Unavailable Allergies [...] Instructions Start Date End Date Status Dosage Alprazolam [facility] [address]-68 2 MG Orally Thre e times a day PRN anxiety MUST LAST 30 Days Clementine to sign for Lei November 12, 2014 1 tablet Adderall [facility] [address]-93 30 MG Orally Onc e a day qAM Clementine to sign for Lei 2 tablets Results No Known Results Summary Purpose [employer] Submission
--- OUTSIDE RECORDS SUMMARY | 2020-01-12 11:33 | XMS REPORT ---
Author Author Cj PADILLA Organization [facility] Address [address] [place] [address] Care Team Providers Care Opal Polisher Name Role Phone JUAN JOSÉ PADILLA Unavailable PROBLEMS Type Condition ICD9-CM Code SQY78-KB Code Onset Dates Condition S tatus SNOMED Code Problem Pain in joint, lower leg 719.46 Activ e 819551275 Problem Attention deficit disorder o f childhood 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 314.00 Active 64656298 Problem Essential hypertension, benign 401.1 Active 7717612 Problem Anxiety state, unspecified 300.00 Act disha 711736808 Problem Other and unspecified hyperlipidemia 272.4 Active 48014218 Problem Major depressive disorder, recurrent episode, moderate 296 .32 Active 83496442 Problem PTSD (post-traumatic stress disorder) F43.10 Active 83264197 Problem Generalized anxiety disorder 300.02 A ctive 19502622 Problem Anxiety F41.9 Active 32182199 Problem Depressive disorder, not elsewhere classified 311 Active 56866229 Problem Attention deficit hyperactivity disorder F90.9 Active 370119480 Problem Major depression F32.9 Active 370 682035 Problem Generalized anxiety disorder F41.1 A ctive 82200878 Problem Major depressive disorder, recurrent, moderate F33 .1 Active 58440083 ALLERGIES No Information ENCOUNTERS Encounter Location Date Diagnosis [place] [id number] [address] May, [place] [address] [address] May, Major depressive disorder, recurrent, mo derate F33.1 ; Anxiety F41.9 ; PTSD (post-traumatic stress disorder) F43.10 and Neurocognitive disorder R41.9 [place] [address] [address] 13 Jun, 2016 [facility] [address] [address] May, Generalized anxiety disorder F41.1 ; Luis Angel or depression F32.9 and Attention deficit hyperactivity disorder F90.9 [facility] [address] [address] Feb, [facility] [address] [place] [id number] [place] [address] Jan, [facility] [address] [address] Dec, [facility] [address] [address] Dec, [facility] [address] [address] Dec, Generalized anxiety disorder F41.1 ; Luis Angel or depression F32.9 and Attention deficit hyperactivity disorder F90.9 [facility] [address] [address] Oct, [facility] [address] [address] Oct, [facility] [address] [address] Sep, [facility] [address] [address] Sep, [facility] [address] [address] Aug, [facility] [address] [address] Aug, Generalized anxiety disorder F41.1 ; Luis Angel or depression F32.9 and Attention deficit hyperactivity disorder F90.9 [facility] [address] [address] Aug, [facility] [address] [address] Aug, [facility] [address] [address] Jun, [facility] [address] [place] [id number] [place] [address] Jun, [facility] [address] [address] Jun, Attention deficit hyperactivity disorder F90.9 ; Generalized anxiety disorder F41.1 and Major depression F32.9 [facility] [address] [address] Jun, [facility] [address] [address] Apr, [facility] [address] [address] Mar, [facility] [address] [address] Mar, [facility] [address] [address] Feb, ADD (attention deficit disorder) 314.00 ; Major depressive disorder, recurrent episode, moderate 296.32 and Generalized anxiety disorder 300.02 [facility] [address] [address] Feb, [facility] [address] [address] Feb, [facility] [address] [address] Jan, [facility] [address] [address] Jan, [facility] [address] [address] Jan, [facility] [address] [address] Jan, [facility] [address] [place] [id number] [place] [address] Dec, [facility] [address] [address] Dec, [facility] [address] [place] [id number] [place] [address] Dec, [facility] [address] [place] [address] [id number] [place] [address] November, Attention deficit disorder of childhood 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 314.00 ; Generalized anxiety disorder 300.02 and Major depressive disorder, recurrent episode, moderate 296.32 [facility] [address] [place] [id number] [place] [address] November, [facility] [address] [place] [id number] [place] [address] November, [facility] [address] [place] [address] [id number] [place] [address] November, Anxiety state 300.00 [facility] [address] [address] [id number] [place] [address] Oct, [facility] [address] [address] [id number] [place] [address] Oct, [facility] [address] [place] [address] [id number] [place] [address] Sep, [facility] [address] [place] [id number] [place] [address] Sep, [facility] [address] [place] [id number] [place] [address] Sep, [facility] [address] [place] [id number] [place] [address] Sep, [facility] [address] [place] [id number] [place] [address] Sep, [facility] [address] [place] [id number] [place] [address] Sep, [facility] [address] [place] [id number] [place] [address] Aug, [facility] [address] [place] [id number] [place] [address] Aug, [facility] [id number] [place] [address] 10 Aug, 2014 [facility] [id number] [place] [address] Aug, 2014 [facility] [id number] [place] [address] Aug, 2014 [facility] [id number] [place] [address] Aug, 2014 [facility] [id number] [place] [address] Aug, [facility] [id number] [place] [address] Aug, [facility] [id number] [place] [address] Jul, [facility] [id number] [place] [address] Jul, [facility] [id number] [place] [address] Jul, [facility] [id number] [place] [address] Jul, [facility] [id number] [place] [address] Jul, [facility] [id number] [place] [address] Jul, [facility] [id number] [place] [address] Jun, [facility] [id number] [place] [address] Jun, [facility] [id number] [place] [address] Jun, [facility] [id number] [place] [address] Jun, [facility] [id number] [place] [address] Jun, [facility] [address] [facility] [id number] [place] [address] Jun, [facility] [address] [facility] [id number] [place] [address] May, [facility] [id number] [place] [address] May, [facility] [id number] [place] [address] May, [facility] [address] [facility] [id number] [place] [address] May, [facility] [id number] [place] [address] May, [facility] [id number] [place] [address] May, [facility] [id number] [place] [address] May, [facility] [id number] [place] [address] May, [facility] [id number] [place] [address] May, [facility] [id number] [place] [address] May, [facility] [id number] [place] [address] Apr, [facility] [address] [facility] [id number] [place] [address] Apr, [facility] [id number] [place] [address] Apr, [facility] [id number] [place] [address] Apr, [facility] [id number] [place] [address] Apr, [facility] [id number] [place] [address] Apr, [facility] [address] [id number] [place] [address] Apr, [facility] [address] [facility] [id number] [place] [address] Apr, [facility] [id number] [place] [address] 15 Mar, 2014 [facility] [address] [facility] [id number] [place] [address] 15 Mar, 2014 [facility] [address] [id number] [place] [address] Mar, [facility] [address] [id number] [place] [address] Mar, [facility] [id number] [place] [address] Mar, [facility] [id number] [place] [address] Mar, [facility] [id number] [place] [address] Feb, [facility] [id number] [place] [address] Feb, [facility] [id number] [place] [address] Feb, [facility] [id number] [place] [address] Feb, [facility] [address] [facility] [id number] [place] [address] Feb, [facility] [id number] [place] [address] Feb, [facility] [id number] [place] [address] Jan, [facility] [id number] [place] [address] Jan, [facility] [address] [id number] [place] [address] Jan, [facility] [address] [facility] [id number] [place] [address] Jan, [facility] [address] [facility] [id number] [place] [address] Jan, [facility] [id number] [place] [address] Jan, [facility] [address] [facility] [id number] [place] [address] Dec, [facility] [id number] [place] [address] Dec, [facility] [id number] [place] [address] Dec, [facility] [id number] [place] [address] Dec, [facility] [id number] [place] [address] Dec, [facility] [id number] [place] [address] November, [facility] [id number] [place] [address] November, [facility] [id number] [place] [address] November, [facility] [id number] [place] [address] November, [facility] [address] [facility] [id number] [place] [address] November, [facility] [address] [id number] [place] [address] November, [facility] [id number] [place] [address] November, [facility] [id number] [place] [address] November, [facility] [address] [facility] [id number] [place] [address] Oct, [facility] [address] [facility] [id number] [place] [address] Oct, [facility] [id number] [place] [address] Oct, [facility] [id number] [place] [address] Oct, [facility] [address] [facility] [id number] [place] [address] Oct, [facility] [id number] [place] [address] Oct, [facility] [id number] [place] [address] Sep, [facility] [id number] [place] [address] Sep, [facility] [id number] [place] [address] Sep, [facility] [id number] [place] [address] Sep, [facility] [id number] [place] [address] Sep, [facility] [id number] [place] [address] Sep, [facility] [address] [facility] [id number] [place] [address] Aug, [facility] [address] [facility] [id number] [place] [address] Aug, [facility] [address] [facility] [id number] [place] [address] Jul, [facility] [id number] [place] [address] Jul, [facility] [id number] [place] [address] 17 Jul, 2013 [facility] [address] [facility] [id number] [place] [address] 17 Jul, 2013 [facility] [id number] [place] [address] 15 Jul, 2013 [facility] [id number] [place] [address] 15 Jul, 2013 [facility] [id number] [place] [address] 13 Jul, 2013 [facility] [id number] [place] [address] Jul, [facility] [id number] [place] [address] Jul, [facility] [id number] [place] [address] Jul, [facility] [id number] [place] [address] 07 Jul, 2013 [facility] [id number] [place] [address] Jul, [facility] [id number] [place] [address] Jun, [facility] [id number] [place] [address] Jun, [facility] [id number] [place] [address] Jun, [facility] [id number] [place] [address] 20 Jun, 2013 [facility] [id number] [place] [address] 13 Jun, 2013 [facility] [id number] [place] [address] 13 Jun, 2013 [facility] [id number] [place] [address] Jun, [facility] [id number] [place] [address] Jun, [facility] [id number] [place] [address] May, [facility] [id number] [place] [address] May, [facility] [id number] [place] [address] May, [facility] [id number] [place] [address] May, [facility] [id number] [place] [address] Apr, [facility] [id number] [place] [address] Apr, [facility] [id number] [place] [address] Apr, [facility] [id number] [place] [address] Mar, [facility] [id number] [place] [address] Feb, [facility] [id number] [place] [address] Jan, [facility] [id number] [place] [address] Jan, [facility] [id number] [place] [address] Jan, IMMUNIZATIONS No Known Immunizations SOCIAL HISTORY [...]
--- OUTSIDE RECORDS SUMMARY | 2020-01-12 11:34 | XMS REPORT ---
Author Author Cj PADILLA Organization [facility] Address [address] [place] [address] Care Team Providers Care Thermostat Maker Name Role Phone JUAN JOSÉ PADILLA Unavailable PROBLEMS Type Condition ICD9-CM Code [id number] Code Onset Dates Condition S tatus SNOMED Code Problem Pain in joint, lower leg 719.46 Activ e 598117203 Problem Attention deficit disorder o f childhood 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 314.00 Active 44730763 Problem Essential hypertension, benign 401.1 Active 5423934 Problem Anxiety state, unspecified 300.00 Act disha 389457941 Problem Other and unspecified hyperlipidemia 272.4 Active 26645050 Problem Major depressive disorder, recurrent episode, moderate 296 .32 Active 32318052 Problem PTSD (post-traumatic stress disorder) F43.10 Active 20861133 Problem Generalized anxiety disorder 300.02 A ctive 26432691 Problem Anxiety F41.9 Active 76145782 Problem Depressive disorder, not elsewhere classified 311 Active 44728072 Problem Attention deficit hyperactivity disorder F90.9 Active 582331185 Problem Major depression F32.9 Active 370 057601 Problem Generalized anxiety disorder F41.1 A ctive 40759176 Problem Major depressive disorder, recurrent, moderate F33 .1 Active 78259132 ALLERGIES No Information ENCOUNTERS Encounter Location Date Diagnosis [place] [id number] [address] May, [facility] [address] [address] May, Major depressive disorder, recurrent, mo derate F33.1 ; Anxiety F41.9 ; PTSD (post-traumatic stress disorder) F43.10 and Neurocognitive disorder R41.9 [place] [address] [address] 13 Jun, 2016 [facility] [address] [address] May, Generalized anxiety disorder F41.1 ; Luis Angel or depression F32.9 and Attention deficit hyperactivity disorder F90.9 [facility] [address] [address] Feb, [facility] [address] [place] [id number] [place] [address] Jan, [facility] [address] [address] Dec, [facility] [address] [address] Dec, [facility] [address] [address] Dec, Generalized anxiety disorder F41.1 ; Luis Angel or depression F32.9 and Attention deficit hyperactivity disorder F90.9 [facility] [address] [address] Oct, [facility] [address] [address] Oct, [facility] [address] [address] Sep, [facility] [address] [address] Sep, [facility] [address] [address] Aug, [facility] [address] [address] Aug, Generalized anxiety disorder F41.1 ; Luis Angel or depression F32.9 and Attention deficit hyperactivity disorder F90.9 [facility] [address] [address] Aug, [facility] [address] [address] Aug, [facility] [address] [address] Jun, [facility] [address] [place] [id number] [place] [address] Jun, [facility] [address] [address] Jun, Attention deficit hyperactivity disorder F90.9 ; Generalized anxiety disorder F41.1 and Major depression F32.9 [facility] [address] [address] Jun, [facility] [address] [address] Apr, [facility] [address] [address] Mar, [facility] [address] [address] Mar, [facility] [address] [address] Feb, ADD (attention deficit disorder) 314.00 ; Major depressive disorder, recurrent episode, moderate 296.32 and Generalized anxiety disorder 300.02 [facility] [address] [address] Feb, [facility] [address] [address] Feb, [facility] [address] [address] Jan, [facility] [address] [address] Jan, [facility] [address] [address] Jan, [facility] [address] [address] Jan, [facility] [address] [place] [address] [id number] [place] [address] Dec, [facility] [address] [address] Dec, [facility] [id number] [place] [address] Dec, [facility] [id number] [place] [address] November, Attention deficit disorder of childhood 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 314.00 ; Generalized anxiety disorder 300.02 and Major depressive disorder, recurrent episode, moderate 296.32 [facility] [id number] [place] [address] November, [facility] [id number] [place] [address] November, [facility] [id number] [place] [address] November, Anxiety state 300.00 [facility] [id number] [place] [address] Oct, [facility] [address] [place] [address] [id number] [place] [address] Oct, [facility] [id number] [place] [address] Sep, [facility] [id number] [place] [address] Sep, [facility] [id number] [place] [address] Sep, [facility] [id number] [place] [address] Sep, [facility] [id number] [place] [address] Sep, [facility] [id number] [place] [address] Sep, [facility] [id number] [place] [address] Aug, [facility] [id number] [place] [address] Aug, [facility] [address] [id number] [place] [address] 10 Aug, 2014 [facility] [address] [id number] [place] [address] Aug, 2014 [facility] [address] [id number] [place] [address] Aug, 2014 [facility] [address] [id number] [place] [address] Aug, 2014 [facility] [address] [id number] [place] [address] Aug, [facility] [address] [id number] [place] [address] Aug, [facility] [address] [id number] [place] [address] Jul, [facility] [address] [id number] [place] [address] Jul, [facility] [address] [id number] [place] [address] Jul, [facility] [address] [id number] [place] [address] Jul, [facility] [address] [id number] [place] [address] Jul, [facility] [address] [id number] [place] [address] Jul, [facility] [address] [id number] [place] [address] Jun, [facility] [address] [id number] [place] [address] Jun, [facility] [address] [id number] [place] [address] Jun, [facility] [address] [id number] [place] [address] Jun, [facility] [address] [id number] [place] [address] Jun, [facility] [address] [facility] [id number] [place] [address] Jun, [facility] [address] [facility] [id number] [place] [address] May, [facility] [address] [id number] [place] [address] May, [facility] [address] [id number] [place] [address] May, [facility] [address] [facility] [id number] [place] [address] May, [facility] [address] [id number] [place] [address] May, [facility] [address] [id number] [place] [address] May, [facility] [address] [id number] [place] [address] May, [facility] [address] [id number] [place] [address] May, [facility] [address] [id number] [place] [address] May, [facility] [address] [id number] [place] [address] May, [facility] [address] [id number] [place] [address] Apr, [facility] [address] [facility] [id number] [place] [address] Apr, [facility] [address] [id number] [place] [address] Apr, [facility] [address] [id number] [place] [address] Apr, [facility] [address] [id number] [place] [address] Apr, [facility] [address] [id number] [place] [address] Apr, [facility] [address] [id number] [place] [address] Apr, [facility] [address] [facility] [id number] [place] [address] Apr, [facility] [address] [id number] [place] [address] 15 Mar, 2014 [facility] [address] [facility] [id number] [place] [address] 15 Mar, 2014 [facility] [address] [id number] [place] [address] Mar, [facility] [address] [id number] [place] [address] Mar, [facility] [address] [id number] [place] [address] Mar, [facility] [address] [id number] [place] [address] Mar, [facility] [address] [id number] [place] [address] Feb, [facility] [address] [id number] [place] [address] Feb, [facility] [address] [id number] [place] [address] Feb, [facility] [address] [id number] [place] [address] Feb, [facility] [address] [facility] [id number] [place] [address] Feb, [facility] [address] [id number] [place] [address] Feb, [facility] [address] [id number] [place] [address] Jan, [facility] [address] [id number] [place] [address] Jan, [facility] [address] [id number] [place] [address] Jan, [facility] [address] [facility] [id number] [place] [address] Jan, [facility] [address] [facility] [id number] [place] [address] Jan, [facility] [address] [id number] [place] [address] Jan, [facility] [address] [facility] [id number] [place] [address] Dec, [facility] [address] [id number] [place] [address] Dec, [facility] [address] [id number] [place] [address] Dec, [facility] [address] [id number] [place] [address] Dec, [facility] [address] [id number] [place] [address] Dec, [facility] [address] [id number] [place] [address] November, [facility] [address] [id number] [place] [address] November, [facility] [address] [id number] [place] [address] November, [facility] [address] [id number] [place] [address] November, [facility] [address] [facility] [id number] [place] [address] November, [facility] [address] [id number] [place] [address] November, [facility] [address] [id number] [place] [address] November, [facility] [address] [id number] [place] [address] November, [facility] [address] [facility] [id number] [place] [address] Oct, [facility] [address] [facility] [id number] [place] [address] Oct, [facility] [address] [id number] [place] [address] Oct, [facility] [address] [id number] [place] [address] Oct, [facility] [address] [facility] [id number] [place] [address] Oct, [facility] [address] [id number] [place] [address] Oct, [facility] [address] [id number] [place] [address] Sep, [facility] [address] [id number] [place] [address] Sep, [facility] [address] [id number] [place] [address] Sep, [facility] [address] [id number] [place] [address] Sep, [facility] [address] [id number] [place] [address] Sep, [facility] [address] [id number] [place] [address] Sep, [facility] [address] [facility] [id number] [place] [address] Aug, [facility] [address] [facility] [id number] [place] [address] Aug, [facility] [address] [id number] [place] [address] Jul, [facility] [address] [id number] [place] [address] Jul, [facility] [address] [id number] [place] [address] 17 Jul, 2013 [facility] [address] [facility] [id number] [place] [address] 17 Jul, 2013 [facility] [address] [id number] [place] [address] 15 Jul, 2013 [facility] [address] [id number] [place] [address] 15 Jul, 2013 [facility] [address] [id number] [place] [address] 13 Jul, 2013 [facility] [address] [id number] [place] [address] Jul, [facility] [address] [id number] [place] [address] Jul, [facility] [address] [id number] [place] [address] Jul, [facility] [address] [id number] [place] [address] 07 Jul, 2013 [facility] [address] [id number] [place] [address] Jul, [facility] [address] [id number] [place] [address] Jun, [facility] [address] [id number] [place] [address] Jun, [facility] [address] [id number] [place] [address] Jun, [facility] [address] [id number] [place] [address] 20 Jun, 2013 [facility] [address] [id number] [place] [address] 13 Jun, 2013 [facility] [address] [id number] [place] [address] 13 Jun, 2013 [facility] [address] [id number] [place] [address] Jun, [facility] [address] [id number] [place] [address] Jun, [facility] [id number] [place] [address] May, [facility] [address] [id number] [place] [address] May, [facility] [id number] [place] [address] May, [facility] [id number] [place] [address] May, [facility] [id number] [place] [address] Apr, [facility] [id number] [place] [address] Apr, [facility] [id number] [place] [address] Apr, [facility] [id number] [place] [address] Mar, [facility] [id number] [place] [address] Feb, [facility] [id number] [place] [address] Jan, [facility] [id number] [place] [address] Jan, [facility] [id number] [place] [address] Jan, IMMUNIZATIONS No Known Immunizations SOCIAL HISTORY [...]
--- OUTSIDE RECORDS SUMMARY | 2020-01-12 11:34 | XMS REPORT ---
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 314.00 Active 22378106 Problem Essential hypertension, benign 401.1 Active 6285628 Problem Anxiety state, unspecified 300.00 Act disha 946967608 Problem Other and unspecified hyperlipidemia 272.4 Active 50863804 Problem Major depressive disorder, recurrent episode, moderate 296 .32 Active 38706898 Problem PTSD (post-traumatic stress disorder) F43.10 Active 52331170 Problem Generalized anxiety disorder 300.02 A ctive 83204655 Problem Anxiety F41.9 Active 91650374 Problem Depressive disorder, not elsewhere classified 311 Active 50662934 Problem Attention deficit hyperactivity disorder F90.9 Active 557497543 Problem Major depression F32.9 Active 370 113966 Problem Generalized anxiety disorder F41.1 A ctive 16868488 Problem Major depressive disorder, recurrent, moderate F33 .1 Active 70339129 ALLERGIES No Information ENCOUNTERS Encounter Location Date Diagnosis [place] [id number] [address] May, [place] [address] [address] May, Major depressive disorder, recurrent, mo derate F33.1 ; Anxiety F41.9 ; PTSD (post-traumatic stress disorder) F43.10 and Neurocognitive disorder R41.9 [place] [address] [address] 13 Jun, 2016 [facility] [address] [address] May, Generalized anxiety disorder F41.1 ; [place] or depression F32.9 and Attention deficit hyperactivity disorder F90.9 [facility] [address] [address] Feb, [facility] [address] [place] [id number] [place] [address] Jan, [facility] [address] [address] Dec, [facility] [address] [address] Dec, [facility] [address] [address] Dec, Generalized anxiety disorder F41.1 ; [place] or depression F32.9 and Attention deficit hyperactivity disorder F90.9 [facility] [address] [address] Oct, [facility] [address] [address] Oct, [facility] [address] [address] Sep, [facility] [address] [address] Sep, [facility] [address] [address] Aug, [facility] [address] [address] Aug, Generalized anxiety disorder F41.1 ; [place] or depression F32.9 and Attention deficit hyperactivity disorder F90.9 [facility] [address] [address] Aug, [facility] [address] [address] Aug, [facility] [address] [address] Jun, [facility] [address] [place] [id number] [place] [address] Jun, [facility] [address] [address] Jun, Attention deficit hyperactivity disorder F90.9 ; Generalized anxiety disorder F41.1 and Major depression F32.9 [facility] [address] [address] Jun, [facility] [address] [address] Apr, [facility] [address] [address] Mar, [facility] [address] [address] Mar, [facility] [address] [address] Feb, ADD (attention deficit disorder) 314.00 ; Major depressive disorder, recurrent episode, moderate 296.32 and Generalized anxiety disorder 300.02 [facility] [address] [address] Feb, [facility] [address] [address] Feb, [facility] [address] [address] Jan, [facility] [address] [address] Jan, [facility] [address] [address] Jan, [facility] [address] [address] Jan, [facility] [address] [place] [id number] [place] [address] Dec, [facility] [address] [address] Dec, [facility] [address] [place] [id number] [place] [address] Dec, [facility] [address] [address] [id number] [place] [address] November, Attention deficit disorder of childhood 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 314.00 ; Generalized anxiety disorder 300.02 and Major depressive disorder, recurrent episode, moderate 296.32 [facility] [address] [place] [id number] [place] [address] November, [facility] [address] [place] [id number] [place] [address] November, [facility] [address] [place] [address] [id number] [place] [address] November, Anxiety state 300.00 [facility] [address] [place] [id number] [place] [address] Oct, [facility] [address] [place] [id number] [place] [address] Oct, [facility] [address] [address] [id number] [place] [address] Sep, [facility] [address] [place] [address] [id number] [place] [address] Sep, [facility] [address] [place] [address] [id number] [place] [address] Sep, [facility] [address] [address] [id number] [place] [address] Sep, [facility] [address] [address] [id number] [place] [address] Sep, [facility] [address] [place] [address] [id number] [place] [address] Sep, [facility] [address] [place] [address] [id number] [place] [address] Aug, [facility] [address] [place] [address] [id number] [place] [address] Aug, [facility] [address] [id number] [place] [address] 10 Aug, 2014 [facility] [address] [id number] [place] [address] Aug, 2014 [facility] [address] [id number] [place] [address] Aug, 2014 [facility] [address] [id number] [place] [address] Aug, 2014 [facility] [address] [id number] [place] [address] Aug, [facility] [address] [id number] [place] [address] Aug, [facility] [address] [id number] [place] [address] Jul, [facility] [address] [id number] [place] [address] Jul, [facility] [address] [id number] [place] [address] Jul, [facility] [address] [id number] [place] [address] Jul, [facility] [address] [id number] [place] [address] Jul, [facility] [address] [id number] [place] [address] Jul, [facility] [address] [id number] [place] [address] Jun, [facility] [address] [id number] [place] [address] Jun, [facility] [address] [id number] [place] [address] Jun, [facility] [address] [id number] [place] [address] Jun, [facility] [address] [id number] [place] [address] Jun, [facility] [address] [facility] [id number] [place] [address] Jun, [facility] [address] [facility] [id number] [place] [address] May, [facility] [address] [id number] [place] [address] May, [facility] [address] [id number] [place] [address] May, [facility] [address] [facility] [id number] [place] [address] May, [facility] [address] [id number] [place] [address] May, [facility] [address] [id number] [place] [address] May, [facility] [address] [id number] [place] [address] May, [facility] [address] [id number] [place] [address] May, [facility] [address] [id number] [place] [address] May, [facility] [address] [id number] [place] [address] May, [facility] [address] [id number] [place] [address] Apr, [facility] [address] [facility] [id number] [place] [address] Apr, [facility] [address] [id number] [place] [address] Apr, [facility] [address] [id number] [place] [address] Apr, [facility] [address] [id number] [place] [address] Apr, [facility] [address] [id number] [place] [address] Apr, [facility] [address] [id number] [place] [address] Apr, [facility] [address] [facility] [id number] [place] [address] Apr, [facility] [address] [id number] [place] [address] 15 Mar, 2014 [facility] [address] [facility] [id number] [place] [address] 15 Mar, 2014 [facility] [address] [id number] [place] [address] Mar, [facility] [address] [id number] [place] [address] Mar, [facility] [address] [id number] [place] [address] Mar, [facility] [address] [id number] [place] [address] Mar, [facility] [address] [id number] [place] [address] Feb, [facility] [address] [id number] [place] [address] Feb, [facility] [address] [id number] [place] [address] Feb, [facility] [address] [id number] [place] [address] Feb, [facility] [address] [facility] [id number] [place] [address] Feb, [facility] [address] [id number] [place] [address] Feb, [facility] [address] [id number] [place] [address] Jan, [facility] [address] [id number] [place] [address] Jan, [facility] [address] [id number] [place] [address] Jan, [facility] [address] [facility] [id number] [place] [address] Jan, [facility] [address] [facility] [id number] [place] [address] Jan, [facility] [address] [id number] [place] [address] Jan, [facility] [address] [facility] [id number] [place] [address] Dec, [facility] [address] [id number] [place] [address] Dec, [facility] [address] [id number] [place] [address] Dec, [facility] [address] [id number] [place] [address] Dec, [facility] [address] [id number] [place] [address] Dec, [facility] [address] [id number] [place] [address] November, [facility] [address] [id number] [place] [address] November, [facility] [address] [id number] [place] [address] November, [facility] [address] [id number] [place] [address] November, [facility] [address] [facility] [id number] [place] [address] November, [facility] [address] [id number] [place] [address] November, [facility] [address] [id number] [place] [address] November, [facility] [address] [id number] [place] [address] November, [facility] [address] [facility] [id number] [place] [address] Oct, [facility] [address] [facility] [id number] [place] [address] Oct, [facility] [address] [id number] [place] [address] Oct, [facility] [address] [id number] [place] [address] Oct, [facility] [address] [facility] [id number] [place] [address] Oct, [facility] [address] [id number] [place] [address] Oct, [facility] [address] [id number] [place] [address] Sep, [facility] [address] [id number] [place] [address] Sep, [facility] [address] [id number] [place] [address] Sep, [facility] [address] [id number] [place] [address] Sep, [facility] [address] [id number] [place] [address] Sep, [facility] [address] [id number] [place] [address] Sep, [facility] [address] [facility] [id number] [place] [address] Aug, [facility] [address] [facility] [id number] [place] [address] Aug, [facility] [address] [id number] [place] [address] Jul, [facility] [address] [id number] [place] [address] Jul, [facility] [address] [id number] [place] [address] 17 Jul, 2013 [facility] [address] [facility] [id number] [place] [address] 17 Jul, 2013 [facility] [address] [id number] [place] [address] 15 Jul, 2013 [facility] [address] [id number] [place] [address] 15 Jul, 2013 [facility] [address] [id number] [place] [address] 13 Jul, 2013 [facility] [address] [id number] [place] [address] Jul, [facility] [address] [id number] [place] [address] Jul, [facility] [address] [id number] [place] [address] Jul, [facility] [address] [id number] [place] [address] 07 Jul, 2013 [facility] [address] [id number] [place] [address] Jul, [facility] [address] [id number] [place] [address] Jun, [facility] [address] [id number] [place] [address] Jun, [facility] [address] [id number] [place] [address] Jun, [facility] [address] [id number] [place] [address] 20 Jun, 2013 [facility] [address] [id number] [place] [address] 13 Jun, 2013 [facility] [address] [id number] [place] [address] 13 Jun, 2013 [facility] [address] [id number] [place] [address] Jun, [facility] [address] [id number] [place] [address] Jun, [facility] [id number] [place] [address] May, [facility] [address] [id number] [place] [address] May, [facility] [address] [address] [id number] [place] [address] May, [facility] [address] [id number] [place] [address] May, [facility] [address] [id number] [place] [address] Apr, [facility] [address] [id number] [place] [address] Apr, [facility] [address] [id number] [place] [address] Apr, [facility] [id number] [place] [address] Mar, [facility] [id number] [place] [address] Feb, [facility] [id number] [place] [address] Jan, [facility] [id number] [place] [address] Jan, [facility] [id number] [place] [address] Jan, IMMUNIZATIONS No Known Immunizations SOCIAL HISTORY [...]
--- OUTSIDE RECORDS SUMMARY | 2020-01-12 11:34 | XMS REPORT ---
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 Active 38080807 Problem Essential hypertension, benign 401.1 Active 6860187 Problem Anxiety state, unspecified 300.00 Act disha 011178009 Problem Other and unspecified hyperlipidemia 272.4 Active 24480428 Problem Major depressive disorder, recurrent episode, moderate 296 .32 Active 26637977 Problem PTSD (post-traumatic stress disorder) F43.10 Active 23378583 Problem Generalized anxiety disorder 300.02 A ctive 93316218 Problem Anxiety F41.9 Active 76304152 Problem Depressive disorder, not elsewhere classified 311 Active 34822521 Problem Attention deficit hyperactivity disorder F90.9 Active 679991938 Problem Major depression F32.9 Active 370 563585 Problem Generalized anxiety disorder F41.1 A ctive 31192066 Problem Major depressive disorder, recurrent, moderate F33 .1 Active 42856522 ALLERGIES No Information ENCOUNTERS Encounter Location Date Diagnosis [place] [id number] [address] May, [place] [address] [address] May, Major depressive disorder, recurrent, mo derate F33.1 ; Anxiety F41.9 ; PTSD (post-traumatic stress disorder) F43.10 and Neurocognitive disorder R41.9 [place] [address] [address] 13 Jun, 2016 [facility] [address] [address] May, Generalized anxiety disorder F41.1 ; Luis Angel or depression F32.9 and Attention deficit hyperactivity disorder F90.9 [facility] [address] [address] Feb, [facility] [address] [place] [id number] [place] [address] Jan, [facility] [address] [address] Dec, [facility] [address] [address] Dec, [facility] [address] [address] Dec, Generalized anxiety disorder F41.1 ; Luis Angel or depression F32.9 and Attention deficit hyperactivity disorder F90.9 [facility] [address] [address] Oct, [facility] [address] [address] Oct, [facility] [address] [address] Sep, [facility] [address] [address] Sep, [facility] [address] [address] Aug, [facility] [address] [address] Aug, Generalized anxiety disorder F41.1 ; Luis Angel or depression F32.9 and Attention deficit hyperactivity disorder F90.9 [facility] [address] [address] Aug, [facility] [address] [address] Aug, [facility] [address] [address] Jun, [facility] [address] [place] [id number] [place] [address] Jun, [facility] [address] [address] Jun, Attention deficit hyperactivity disorder F90.9 ; Generalized anxiety disorder F41.1 and Major depression F32.9 [facility] [address] [address] Jun, [facility] [address] [address] Apr, [facility] [address] [address] Mar, [facility] [address] [address] Mar, [facility] [address] [address] Feb, ADD (attention deficit disorder) 314.00 ; Major depressive disorder, recurrent episode, moderate 296.32 and Generalized anxiety disorder 300.02 [facility] [address] [address] Feb, [facility] [address] [address] Feb, [facility] [address] [address] Jan, [facility] [address] [address] Jan, [facility] [address] [address] Jan, [facility] [address] [address] Jan, [facility] [address] [place] [id number] [place] [address] Dec, [facility] [address] [address] Dec, [facility] [address] [id number] [place] [address] Dec, [facility] [address] [address] [id number] [place] [address] November, Attention deficit disorder of childhood 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 314.00 ; Generalized anxiety disorder 300.02 and Major depressive disorder, recurrent episode, moderate 296.32 [facility] [address] [address] [id number] [place] [address] November, [facility] [address] [place] [address] [id number] [place] [address] November, [facility] [address] [place] [address] [id number] [place] [address] November, Anxiety state 300.00 [facility] [address] [place] [address] [id number] [place] [address] Oct, [facility] [address] [place] [address] [id number] [place] [address] Oct, [facility] [address] [place] [address] [id number] [place] [address] Sep, [facility] [address] [place] [address] [id number] [place] [address] Sep, [facility] [address] [address] [id number] [place] [address] Sep, [facility] [address] [address] [id number] [place] [address] Sep, [facility] [address] [address] [id number] [place] [address] Sep, [facility] [address] [address] [id number] [place] [address] Sep, [facility] [address] [address] [id number] [place] [address] Aug, [facility] [address] [address] [id number] [place] [address] Aug, [facility] [address] [id number] [place] [address] 10 Aug, 2014 [facility] [address] [id number] [place] [address] Aug, 2014 [facility] [address] [id number] [place] [address] Aug, 2014 [facility] [address] [id number] [place] [address] Aug, 2014 [facility] [address] [id number] [place] [address] Aug, [facility] [address] [id number] [place] [address] Aug, [facility] [address] [id number] [place] [address] Jul, [facility] [address] [id number] [place] [address] Jul, [facility] [address] [id number] [place] [address] Jul, [facility] [address] [id number] [place] [address] Jul, [facility] [address] [id number] [place] [address] Jul, [facility] [address] [id number] [place] [address] Jul, [facility] [address] [id number] [place] [address] Jun, [facility] [address] [id number] [place] [address] Jun, [facility] [address] [id number] [place] [address] Jun, [facility] [address] [id number] [place] [address] Jun, [facility] [address] [id number] [place] [address] Jun, [facility] [address] [facility] [id number] [place] [address] Jun, [facility] [address] [facility] [id number] [place] [address] May, [facility] [address] [id number] [place] [address] May, [facility] [address] [id number] [place] [address] May, [facility] [address] [facility] [id number] [place] [address] May, [facility] [address] [id number] [place] [address] May, [facility] [address] [id number] [place] [address] May, [facility] [address] [id number] [place] [address] May, [facility] [address] [id number] [place] [address] May, [facility] [address] [id number] [place] [address] May, [facility] [address] [id number] [place] [address] May, [facility] [address] [id number] [place] [address] Apr, [facility] [address] [facility] [id number] [place] [address] Apr, [facility] [address] [id number] [place] [address] Apr, [facility] [address] [id number] [place] [address] Apr, [facility] [address] [id number] [place] [address] Apr, [facility] [address] [id number] [place] [address] Apr, [facility] [address] [id number] [place] [address] Apr, [facility] [address] [facility] [id number] [place] [address] Apr, [facility] [address] [id number] [place] [address] 15 Mar, 2014 [facility] [address] [facility] [id number] [place] [address] 15 Mar, 2014 [facility] [address] [id number] [place] [address] Mar, [facility] [address] [id number] [place] [address] Mar, [facility] [address] [id number] [place] [address] Mar, [facility] [address] [id number] [place] [address] Mar, [facility] [address] [id number] [place] [address] Feb, [facility] [address] [id number] [place] [address] Feb, [facility] [address] [id number] [place] [address] Feb, [facility] [address] [id number] [place] [address] Feb, [facility] [address] [facility] [id number] [place] [address] Feb, [facility] [address] [id number] [place] [address] Feb, [facility] [address] [id number] [place] [address] Jan, [facility] [address] [id number] [place] [address] Jan, [facility] [address] [id number] [place] [address] Jan, [facility] [address] [facility] [id number] [place] [address] Jan, [facility] [address] [facility] [id number] [place] [address] Jan, [facility] [address] [id number] [place] [address] Jan, [facility] [address] [facility] [id number] [place] [address] Dec, [facility] [address] [id number] [place] [address] Dec, [facility] [address] [id number] [place] [address] Dec, [facility] [address] [id number] [place] [address] Dec, [facility] [address] [id number] [place] [address] Dec, [facility] [address] [id number] [place] [address] November, [facility] [address] [id number] [place] [address] November, [facility] [address] [id number] [place] [address] November, [facility] [address] [id number] [place] [address] November, [facility] [address] [facility] [id number] [place] [address] November, [facility] [address] [id number] [place] [address] November, [facility] [address] [id number] [place] [address] November, [facility] [address] [id number] [place] [address] November, [facility] [address] [facility] [id number] [place] [address] Oct, [facility] [address] [facility] [id number] [place] [address] Oct, [facility] [address] [id number] [place] [address] Oct, [facility] [address] [id number] [place] [address] Oct, [facility] [address] [facility] [id number] [place] [address] Oct, [facility] [address] [id number] [place] [address] Oct, [facility] [address] [id number] [place] [address] Sep, [facility] [address] [id number] [place] [address] Sep, [facility] [address] [id number] [place] [address] Sep, [facility] [address] [id number] [place] [address] Sep, [facility] [address] [id number] [place] [address] Sep, [facility] [address] [id number] [place] [address] Sep, [facility] [address] [facility] [id number] [place] [address] Aug, [facility] [address] [facility] [id number] [place] [address] Aug, [facility] [address] [id number] [place] [address] Jul, [facility] [address] [id number] [place] [address] Jul, [facility] [address] [id number] [place] [address] 17 Jul, 2013 [facility] [address] [facility] [id number] [place] [address] 17 Jul, 2013 [facility] [address] [id number] [place] [address] 15 Jul, 2013 [facility] [address] [id number] [place] [address] 15 Jul, 2013 [facility] [address] [id number] [place] [address] 13 Jul, 2013 [facility] [address] [id number] [place] [address] Jul, [facility] [address] [id number] [place] [address] Jul, [facility] [address] [id number] [place] [address] Jul, [facility] [address] [id number] [place] [address] 07 Jul, 2013 [facility] [address] [id number] [place] [address] Jul, [facility] [address] [id number] [place] [address] Jun, [facility] [address] [id number] [place] [address] Jun, [facility] [address] [id number] [place] [address] Jun, [facility] [address] [id number] [place] [address] 20 Jun, 2013 [facility] [address] [id number] [place] [address] 13 Jun, 2013 [facility] [address] [id number] [place] [address] 13 Jun, 2013 [facility] [address] [id number] [place] [address] Jun, [facility] [address] [id number] [place] [address] Jun, [facility] [id number] [place] [address] May, [facility] [address] [id number] [place] [address] May, [facility] [id number] [place] [address] May, [facility] [id number] [place] [address] May, [facility] [id number] [place] [address] Apr, [facility] [id number] [place] [address] Apr, [facility] [id number] [place] [address] Apr, [facility] [id number] [place] [address] Mar, [facility] [id number] [place] [address] Feb, [facility] [id number] [place] [address] Jan, [facility] [id number] [place] [address] Jan, [facility] [id number] [place] [address] Jan, IMMUNIZATIONS No Known Immunizations SOCIAL HISTORY [...]
--- OUTSIDE RECORDS SUMMARY | 2020-01-12 11:34 | XMS REPORT ---
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 Name Role Phone Migration, Doctor Unavailable Unavailable PROBLEMS Type Condition ICD9-CM Code [id number] Code Onset Dates Condition S tatus SNOMED Code Problem Pain in joint, lower leg 719.46 Activ e 006896350 Problem Attention deficit disorder o f childhood 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 314.00 Active 76740675 Problem Essential hypertension, benign 401.1 Active 5373971 Problem Anxiety state, unspecified 300.00 Act disha 096077329 Problem Other and unspecified hyperlipidemia 272.4 Active 12547230 Problem Major depressive disorder, recurrent episode, moderate 296 .32 Active 35801052 Problem PTSD (post-traumatic stress disorder) F43.10 Active 89321949 Problem Generalized anxiety disorder 300.02 A ctive 05868668 Problem Anxiety F41.9 Active 84050944 Problem Depressive disorder, not elsewhere classified 311 Active 77767755 Problem Attention deficit hyperactivity disorder F90.9 Active 766131406 Problem Major depression F32.9 Active 370 960517 Problem Generalized anxiety disorder F41.1 A ctive 26294061 Problem Major depressive disorder, recurrent, moderate F33 .1 Active [id number] ALLERGIES No Information ENCOUNTERS Encounter Location Date Diagnosis [place] [address] [address] May, [place] [address] [address] May, Major depressive disorder, recurrent, mo derate F33.1 ; Anxiety F41.9 ; PTSD (post-traumatic stress disorder) F43.10 and Neurocognitive disorder R41.9 [place] [address] [address] Jun, [place] [address] [address] May, Generalized anxiety disorder F41.1 ; [place] or depression F32.9 and Attention deficit hyperactivity disorder F90.9 [facility] [place] [address] [id number] [place] [address] Feb, [facility] [place] [address] [id number] [place] [address] Jan, [facility] [place] [address] [id number] [place] [address] Dec, [facility] [place] [id number] [place] [address] Dec, [facility] [place] [address] [id number] [place] [address] Dec, Generalized anxiety disorder F41.1 ; [place] Angel or depression F32.9 and Attention deficit hyperactivity disorder F90.9 [facility] [place] [id number] [place] [address] Oct, [facility] [place] [id number] [place] [address] Oct, [facility] [place] [id number] [place] [address] Sep, [facility] [place] [id number] [place] [address] Sep, [facility] [place] [id number] [place] [address] Aug, [facility] [place] [id number] [place] [address] Aug, Generalized anxiety disorder F41.1 ; [place] Angel or depression F32.9 and Attention deficit hyperactivity disorder F90.9 [facility] [place] [id number] [place] [address] Aug, [facility] [place] [id number] [place] [address] Aug, [facility] [place] [address] [id number] [place] [address] Jun, [facility] [place] [id number] [place] [address] Jun, [facility] [place] [id number] [place] [address] Jun, Attention deficit hyperactivity disorder F90.9 ; Generalized anxiety disorder F41.1 and Major depression F32.9 [facility] [place] [id number] [place] [address] Jun, [facility] [place] [address] [id number] [place] [address] Apr, [facility] [place] [id number] [place] [address] Mar, [facility] [place] [address] [address] Mar, [facility] [place] [address] [id number] [place] [address] Feb, ADD (attention deficit disorder) 314.00 ; Major depressive disorder, recurrent episode, moderate 296.32 and Generalized anxiety disorder 300.02 [facility] [place] [id number] [place] [address] Feb, [facility] [place] [id number] [place] [address] Feb, [facility] [place] [id number] [place] [address] Jan, [facility] [place] [address] [id number] [place] [address] Jan, [facility] [place] [address] [place] [id number] [place] [address] Jan, [facility] [place] [address] [place] [address] [id number] [place] [address] Jan, [facility] [place] [address] [place] [address] [id number] [place] [address] Dec, [facility] [place] [address] [place] [id number] [place] [address] Dec, [facility] [place] [address] [place] [id number] [place] [address] Dec, [facility] [place] [address] [place] [address] [id number] [place] [address] November, Attention deficit disorder of childhood 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 314.00 ; Generalized anxiety disorder 300.02 and Major depressive disorder, recurrent episode, moderate 296.32 [facility] [place] [address] [place] [id number] [place] [address] November, [facility] [place] [address] [address] November, [facility] [place] [id number] [place] [address] November, Anxiety state 300.00 [facility] [place] [address] [address] Oct, [facility] [place] [address] [address] Oct, [facility] [place] [id number] [place] [address] Sep, [facility] [place] [address] [place] [id number] [place] [address] Sep, [facility] [place] [address] [address] Sep, [facility] [place] [address] [place] [address] [id number] [place] [address] Sep, [facility] [place] [address] [place] [id number] [place] [address] Sep, [facility] [place] [address] [place] [id number] [place] [address] Sep, [facility] [place] [address] [id number] [place] [address] Aug, [facility] [place] [address] [place] [id number] [place] [address] Aug, [facility] [place] [address] [address] [id number] [place] [address] Aug, [facility] [place] [facility] [address] [id number] [place] [address] Aug, 2014 [facility] [place] [facility] [address] [id number] [place] [address] Aug, 2014 [facility] [place] [facility] [address] [id number] [place] [address] Aug, 2014 [facility] [place] [facility] [address] [id number] [place] [address] Aug, [facility] [place] [facility] [address] [id number] [place] [address] Aug, [facility] [place] [facility] [address] [id number] [place] [address] Jul, [facility] [place] [facility] [address] [id number] [place] [address] Jul, [facility] [place] [facility] [address] [id number] [place] [address] Jul, [facility] [place] [facility] [address] [id number] [place] [address] Jul, [facility] [place] [facility] [address] [id number] [place] [address] Jul, [facility] [place] [facility] [address] [id number] [place] [address] Jul, [facility] [place] [facility] [address] [id number] [place] [address] Jun, [facility] [place] [facility] [address] [id number] [place] [address] Jun, [facility] [place] [facility] [address] [id number] [place] [address] Jun, [facility] [place] [facility] [address] [id number] [place] [address] Jun, [facility] [place] [facility] [address] [id number] [place] [address] Jun, [facility] [place] [facility] [address] [id number] [place] [address] Jun, [facility] [place] [facility] [address] [facility] [id number] [place] [address] May, [facility] [place] [facility] [address] [id number] [place] [address] May, [facility] [place] [facility] [address] [id number] [place] [address] May, [facility] [place] [facility] [address] [id number] [place] [address] May, [facility] [place] [facility] [address] [id number] [place] [address] May, [facility] [place] [facility] [address] [id number] [place] [address] May, [facility] [place] [facility] [address] [id number] [place] [address] May, [facility] [place] [facility] [address] [id number] [place] [address] May, [facility] [place] [facility] [address] [id number] [place] [address] May, [facility] [place] [facility] [address] [id number] [place] [address] May, [facility] [place] [facility] [address] [id number] [place] [address] Apr, [facility] [place] [facility] [address] [id number] [place] [address] Apr, [facility] [place] [facility] [address] [id number] [place] [address] Apr, [facility] [place] [facility] [address] [id number] [place] [address] Apr, [facility] [place] [facility] [address] [id number] [place] [address] Apr, [facility] [place] [facility] [address] [id number] [place] [address] Apr, [facility] [place] [facility] [address] [id number] [place] [address] Apr, [facility] [place] [facility] [address] [facility] [id number] [place] [address] Apr, [facility] [place] [facility] [address] [facility] [id number] [place] [address] Mar, [facility] [place] [facility] [address] [id number] [place] [address] 15 Mar, 2014 [facility] [place] [facility] [address] [facility] [id number] [place] [address] Mar, [facility] [place] [facility] [address] [facility] [id number] [place] [address] Mar, [facility] [place] [facility] [address] [id number] [place] [address] Mar, [facility] [place] [facility] [address] [id number] [place] [address] Mar, [facility] [place] [facility] [address] [id number] [place] [address] Feb, [facility] [place] [facility] [address] [id number] [place] [address] Feb, [facility] [place] [facility] [address] [id number] [place] [address] Feb, [facility] [place] [facility] [address] [id number] [place] [address] Feb, [facility] [place] [facility] [address] [id number] [place] [address] Feb, [facility] [place] [facility] [address] [facility] [id number] [place] [address] Feb, [facility] [place] [facility] [address] [id number] [place] [address] Jan, [facility] [place] [facility] [address] [id number] [place] [address] Jan, [facility] [place] [facility] [address] [id number] [place] [address] Jan, [facility] [place] [facility] [address] [id number] [place] [address] Jan, [facility] [place] [facility] [address] [facility] [id number] [place] [address] Jan, [facility] [place] [facility] [address] [facility] [id number] [place] [address] Jan, [facility] [place] [facility] [address] [facility] [id number] [place] [address] Dec, [facility] [place] [facility] [address] [facility] [id number] [place] [address] Dec, [facility] [place] [facility] [address] [facility] [id number] [facility] [address] Dec, [facility] [place] [facility] [address] [facility] [id number] [place] [address] Dec, [facility] [place] [facility] [address] [id number] [place] [address] Dec, [facility] [place] [facility] [address] [facility] [id number] [place] [address] November, [facility] [place] [facility] [address] [id number] [place] [address] November, [facility] [place] [facility] [address] [id number] [place] [address] November, [facility] [place] [facility] [address] [id number] [place] [address] November, [facility] [place] [facility] [address] [facility] [id number] [place] [address] November, [facility] [place] [facility] [address] [facility] [id number] [place] [address] November, [facility] [place] [facility] [address] [facility] [id number] [place] [address] November, [facility] [place] [facility] [address] [id number] [place] [address] November, [facility] [place] [facility] [address] [id number] [place] [address] Oct, [facility] [place] [facility] [address] [facility] [id number] [place] [address] Oct, [facility] [place] [facility] [address] [facility] [id number] [place] [address] Oct, [facility] [place] [facility] [address] [id number] [place] [address] Oct, [facility] [place] [facility] [address] [id number] [place] [address] Oct, [facility] [place] [facility] [address] [facility] [id number] [place] [address] Oct, [facility] [place] [facility] [address] [id number] [place] [address] Sep, [facility] [place] [facility] [address] [id number] [place] [address] Sep, [facility] [place] [facility] [address] [id number] [place] [address] Sep, [facility] [place] [facility] [address] [id number] [place] [address] Sep, [facility] [place] [facility] [address] [id number] [place] [address] Sep, [facility] [place] [facility] [address] [id number] [place] [address] Sep, [facility] [place] [facility] [address] [id number] [place] [address] Aug, [facility] [place] [facility] [address] [facility] [id number] [place] [address] Aug, [facility] [place] [facility] [address] [id number] [place] [address] Jul, [facility] [place] [facility] [address] [id number] [place] [address] Jul, [facility] [place] [facility] [address] [id number] [place] [address] Jul, [facility] [place] [facility] [address] [id number] [place] [address] 17 Jul, 2013 [facility] [place] [facility] [address] [id number] [place] [address] 15 Jul, 2013 [facility] [place] [facility] [address] [id number] [place] [address] 15 Jul, 2013 [facility] [place] [facility] [address] [id number] [place] [address] 13 Jul, 2013 [facility] [place] [facility] [address] [id number] [place] [address] 13 Jul, 2013 [facility] [place] [facility] [address] [id number] [place] [address] 07 Jul, 2013 [facility] [place] [facility] [address] [id number] [place] [address] 07 Jul, 2013 [facility] [place] [facility] [address] [id number] [place] [address] 07 Jul, 2013 [facility] [place] [facility] [address] [id number] [place] [address] 07 Jul, 2013 [facility] [place] [facility] [address] [id number] [place] [address] Jun, [facility] [place] [facility] [address] [id number] [place] [address] 23 Jun, 2013 [facility] [place] [facility] [address] [id number] [place] [address] 20 Jun, 2013 [facility] [place] [facility] [address] [id number] [place] [address] 20 Jun, 2013 [facility] [place] [facility] [address] [id number] [place] [address] 13 Jun, 2013 [facility] [place] [facility] [address] [id number] [place] [address] 13 Jun, 2013 [facility] [place] [facility] [address] [id number] [place] [address] 11 Jun, 2013 [facility] [place] [facility] [address] [id number] [place] [address] Jun, [facility] [place] [id number] [place] [address] May, [facility] [place] [id number] [place] [address] May, [facility] [place] [id number] [place] [address] May, [facility] [place] [id number] [place] [address] May, [facility] [place] [id number] [place] [address] Apr, [facility] [place] [id number] [place] [address] Apr, [facility] [place] [id number] [place] [address] Apr, [facility] [place] [id number] [place] [address] Mar, [facility] [place] [id number] [place] [address] Feb, [facility] [place] [id number] [place] [address] Jan, [facility] [place] [id number] [place] [address] Jan, [facility] [place] [id number] [place] [address] Jan, IMMUNIZATIONS No Known Immunizations SOCIAL HISTORY Never Assessed REASON FOR VISIT PLAN OF CARE VITAL SIGNS Height 69 in 2013-09-07 Weight 185.2 lbs 2013-09-07 Heart Rate 100 bpm 2013-09-07 Blood pressure systolic 152 mmHg 2013-09-07 Blood pressure diastolic 98 mmHg 2013-09-07 MEDICATIONS Unknown Medications RESULTS No Results PROCEDURES [...]
--- OUTSIDE RECORDS SUMMARY | 2020-01-12 11:34 | XMS REPORT ---
Author Author Cj PADILLA Organization [facility] Address [address] [place] [address] Care Team Providers Care Retail Loss Prevention Investigator Name Role Phone JUAN JOSÉ PADILLA Unavailable PROBLEMS Type Condition ICD9-CM Code [id number] Code Onset Dates Condition S tatus SNOMED Code Problem Pain in joint, lower leg 719.46 Activ e 666696668 Problem Attention deficit disorder o f childhood 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 314.00 Active 70745976 Problem Essential hypertension, benign 401.1 Active 3946256 Problem Anxiety state, unspecified 300.00 Act disha 913763697 Problem Other and unspecified hyperlipidemia 272.4 Active 68872884 Problem Major depressive disorder, recurrent episode, moderate 296 .32 Active 34530745 Problem PTSD (post-traumatic stress disorder) F43.10 Active 78462954 Problem Generalized anxiety disorder 300.02 A ctive 47982093 Problem Anxiety F41.9 Active 17441327 Problem Depressive disorder, not elsewhere classified 311 Active 79952125 Problem Attention deficit hyperactivity disorder F90.9 Active 437398477 Problem Major depression F32.9 Active 370 943367 Problem Generalized anxiety disorder F41.1 A ctive 48955036 Problem Major depressive disorder, recurrent, moderate F33 .1 Active 50561126 ALLERGIES No Information ENCOUNTERS Encounter Location Date Diagnosis [place] [id number] [address] May, [place] [address] [address] May, Major depressive disorder, recurrent, mo derate F33.1 ; Anxiety F41.9 ; PTSD (post-traumatic stress disorder) F43.10 and Neurocognitive disorder R41.9 [place] [address] [address] 13 Jun, 2016 [facility] [address] [address] May, Generalized anxiety disorder F41.1 ; Luis Angel or depression F32.9 and Attention deficit hyperactivity disorder F90.9 [facility] [address] [address] Feb, [facility] [id number] [place] [address] Jan, [facility] [address] [address] Dec, [facility] [address] [address] Dec, [facility] [address] [address] Dec, Generalized anxiety disorder F41.1 ; Luis Angel or depression F32.9 and Attention deficit hyperactivity disorder F90.9 [facility] [address] [address] Oct, [facility] [address] [address] Oct, [facility] [address] [address] Sep, [facility] [address] [address] Sep, [facility] [address] [address] Aug, [facility] [address] [address] Aug, Generalized anxiety disorder F41.1 ; Luis Angel or depression F32.9 and Attention deficit hyperactivity disorder F90.9 [facility] [address] [address] Aug, [facility] [address] [address] Aug, [facility] [address] [address] Jun, [facility] [address] [place] [id number] [place] [address] Jun, [facility] [address] [address] Jun, Attention deficit hyperactivity disorder F90.9 ; Generalized anxiety disorder F41.1 and Major depression F32.9 [facility] [address] [address] Jun, [facility] [address] [address] Apr, [facility] [address] [address] Mar, [facility] [address] [address] Mar, [facility] [address] [address] Feb, ADD (attention deficit disorder) 314.00 ; Major depressive disorder, recurrent episode, moderate 296.32 and Generalized anxiety disorder 300.02 [facility] [address] [address] Feb, [facility] [address] [address] Feb, [facility] [address] [address] Jan, [facility] [address] [address] Jan, [facility] [address] [address] Jan, [facility] [address] [address] Jan, [facility] [address] [place] [address] [id number] [place] [address] Dec, [facility] [address] [address] Dec, [facility] [address] [place] [address] [id number] [place] [address] Dec, [facility] [address] [place] [id number] [place] [address] November, Attention deficit disorder of childhood 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 314.00 ; Generalized anxiety disorder 300.02 and Major depressive disorder, recurrent episode, moderate 296.32 [facility] [address] [place] [address] [id number] [place] [address] November, [facility] [address] [place] [address] [id number] [place] [address] November, [facility] [address] [place] [id number] [place] [address] November, Anxiety state 300.00 [facility] [address] [place] [id number] [place] [address] Oct, [facility] [address] [place] [address] [id number] [place] [address] Oct, [facility] [id number] [place] [address] Sep, [facility] [address] [place] [id number] [place] [address] Sep, [facility] [address] [place] [id number] [place] [address] Sep, [facility] [id number] [place] [address] Sep, [facility] [address] [place] [address] [id number] [place] [address] Sep, [facility] [address] [place] [address] [id number] [place] [address] Sep, [facility] [address] [place] [address] [id number] [place] [address] Aug, [facility] [address] [place] [address] [id number] [place] [address] Aug, [facility] [address] [id number] [place] [address] 10 Aug, 2014 [facility] [address] [id number] [place] [address] Aug, 2014 [facility] [address] [id number] [place] [address] Aug, 2014 [facility] [address] [id number] [place] [address] Aug, 2014 [facility] [address] [id number] [place] [address] Aug, [facility] [address] [id number] [place] [address] Aug, [facility] [address] [id number] [place] [address] Jul, [facility] [address] [id number] [place] [address] Jul, [facility] [address] [id number] [place] [address] Jul, [facility] [address] [id number] [place] [address] Jul, [facility] [address] [id number] [place] [address] Jul, [facility] [address] [id number] [place] [address] Jul, [facility] [address] [id number] [place] [address] Jun, [facility] [address] [id number] [place] [address] Jun, [facility] [address] [id number] [place] [address] Jun, [facility] [address] [id number] [place] [address] Jun, [facility] [address] [id number] [place] [address] Jun, [facility] [address] [facility] [id number] [place] [address] Jun, [facility] [address] [facility] [id number] [place] [address] May, [facility] [address] [id number] [place] [address] May, [facility] [address] [id number] [place] [address] May, [facility] [address] [facility] [id number] [place] [address] May, [facility] [address] [id number] [place] [address] May, [facility] [address] [id number] [place] [address] May, [facility] [address] [id number] [place] [address] May, [facility] [address] [id number] [place] [address] May, [facility] [address] [id number] [place] [address] May, [facility] [address] [id number] [place] [address] May, [facility] [address] [id number] [place] [address] Apr, [facility] [address] [facility] [id number] [place] [address] Apr, [facility] [address] [id number] [place] [address] Apr, [facility] [address] [id number] [place] [address] Apr, [facility] [address] [id number] [place] [address] Apr, [facility] [address] [id number] [place] [address] Apr, [facility] [address] [id number] [place] [address] Apr, [facility] [address] [facility] [id number] [place] [address] Apr, [facility] [address] [id number] [place] [address] 15 Mar, 2014 [facility] [address] [facility] [id number] [place] [address] 15 Mar, 2014 [facility] [address] [id number] [place] [address] Mar, [facility] [address] [id number] [place] [address] Mar, [facility] [address] [id number] [place] [address] Mar, [facility] [address] [id number] [place] [address] Mar, [facility] [address] [id number] [place] [address] Feb, [facility] [address] [id number] [place] [address] Feb, [facility] [address] [id number] [place] [address] Feb, [facility] [address] [id number] [place] [address] Feb, [facility] [address] [facility] [id number] [place] [address] Feb, [facility] [address] [id number] [place] [address] Feb, [facility] [address] [id number] [place] [address] Jan, [facility] [address] [id number] [place] [address] Jan, [facility] [address] [id number] [place] [address] Jan, [facility] [address] [facility] [id number] [place] [address] Jan, [facility] [address] [facility] [id number] [place] [address] Jan, [facility] [address] [id number] [place] [address] Jan, [facility] [address] [facility] [id number] [place] [address] Dec, [facility] [address] [id number] [place] [address] Dec, [facility] [address] [id number] [place] [address] Dec, [facility] [address] [id number] [place] [address] Dec, [facility] [address] [id number] [place] [address] Dec, [facility] [address] [id number] [place] [address] November, [facility] [address] [id number] [place] [address] November, [facility] [address] [id number] [place] [address] November, [facility] [address] [id number] [place] [address] November, [facility] [address] [facility] [id number] [place] [address] November, [facility] [address] [id number] [place] [address] November, [facility] [address] [id number] [place] [address] November, [facility] [address] [id number] [place] [address] November, [facility] [address] [facility] [id number] [place] [address] Oct, [facility] [address] [facility] [id number] [place] [address] Oct, [facility] [address] [id number] [place] [address] Oct, [facility] [address] [id number] [place] [address] Oct, [facility] [address] [facility] [id number] [place] [address] Oct, [facility] [address] [id number] [place] [address] Oct, [facility] [address] [id number] [place] [address] Sep, [facility] [address] [id number] [place] [address] Sep, [facility] [address] [id number] [place] [address] Sep, [facility] [address] [id number] [place] [address] Sep, [facility] [address] [id number] [place] [address] Sep, [facility] [address] [id number] [place] [address] Sep, [facility] [address] [facility] [id number] [place] [address] Aug, [facility] [address] [facility] [id number] [place] [address] Aug, [facility] [address] [id number] [place] [address] Jul, [facility] [address] [id number] [place] [address] Jul, [facility] [address] [id number] [place] [address] 17 Jul, 2013 [facility] [address] [facility] [id number] [place] [address] 17 Jul, 2013 [facility] [address] [id number] [place] [address] 15 Jul, 2013 [facility] [address] [id number] [place] [address] 15 Jul, 2013 [facility] [address] [id number] [place] [address] 13 Jul, 2013 [facility] [address] [id number] [place] [address] Jul, [facility] [address] [id number] [place] [address] Jul, [facility] [address] [id number] [place] [address] Jul, [facility] [address] [id number] [place] [address] 07 Jul, 2013 [facility] [address] [id number] [place] [address] Jul, [facility] [address] [id number] [place] [address] Jun, [facility] [address] [id number] [place] [address] Jun, [facility] [address] [id number] [place] [address] Jun, [facility] [address] [id number] [place] [address] 20 Jun, 2013 [facility] [address] [id number] [place] [address] 13 Jun, 2013 [facility] [address] [id number] [place] [address] 13 Jun, 2013 [facility] [address] [id number] [place] [address] Jun, [facility] [address] [id number] [place] [address] Jun, [facility] [id number] [place] [address] May, [facility] [address] [id number] [place] [address] May, [facility] [id number] [place] [address] May, [facility] [id number] [place] [address] May, [facility] [id number] [place] [address] Apr, [facility] [id number] [place] [address] Apr, [facility] [id number] [place] [address] Apr, [facility] [id number] [place] [address] Mar, [facility] [id number] [place] [address] Feb, [facility] [id number] [place] [address] Jan, [facility] [id number] [place] [address] Jan, [facility] [id number] [place] [address] Jan, IMMUNIZATIONS No Known Immunizations SOCIAL HISTORY [...]
--- OUTSIDE RECORDS SUMMARY | 2020-01-12 11:35 | XMS REPORT ---
Author Author Cj LINDO Organization [facility] Address Unknown Care Team Providers Care Cop Examiner Name Role Phone JULIO LIDNO Unavailable PROBLEMS Type Condition ICD9-CM Code [id number] Code Onset Dates Condition S tatus SNOMED Code Problem Attention deficit disorder o f childhood 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 314.00 Active 04378122 Problem Anxiety state, unspecified 300.00 Act disha [id number] Problem Depressive disorder, not elsewhere classified 311 Active 43537112 Problem Major depressive disorder, recurrent episode, moderate 296 .32 Active 60669302 Problem Generalized anxiety disorder 300.02 A ctive 63646142 Problem Generalized anxiety disorder F41.1 A ctive 34355251 Problem Major depression F32.9 Active 370 785690 Problem Essential hypertension, benign 401.1 Active 2497188 Problem Pain in joint, lower leg 719.46 Activ e 059273976 Problem Attention deficit hyperactivity disorder F90.9 Active 844963593 Problem Other and unspecified hyperlipidemia 272.4 Active 80481669 ALLERGIES Unknown Allergies SOCIAL HISTORY No smoking Hx information available PLAN OF CARE VITAL SIGNS MEDICATIONS Medication Instructions Dosage Frequency Start Date End Date Duration S tatus Adderall 30 MG Orally Once a day 2 tablets 24h Jun, Active RESULTS No Results PROCEDURES No Known procedures IMMUNIZATIONS No Known Immunizations
--- OUTSIDE RECORDS SUMMARY | 2020-01-12 11:35 | XMS REPORT ---
Author Cj Ordoñez Organization [employer] Address Unknown Phone Unavailable Care Team Providers Care Application Designer Name Role Phone JULIO LINDO Unavailable Allergies [...] Date End Date Status Dosage Adderall [facility] [place] [address]-09 30 MG Orally Once a day qAM Sunil to sign for Alfonzo 2 tablets Results No Known Results Summary Purpose [employer] Submission
--- OUTSIDE RECORDS SUMMARY | 2020-01-12 11:35 | XMS REPORT ---
Author Cj Ordoñez Organization [employer] Address Unknown Phone Unavailable Care Team Providers Care Signs And Displays Sales Representative Name Role Phone JULIO LINDO Unavailable [...] Start Date End Date Status Dosage Alprazolam [facility] [address]-21 2 MG Orally Thre e times a day PRN anxiety MUST LAST 30 Days November 12, 2014 1 tablet Results No Known Results Summary Purpose [employer] Submission
--- OUTSIDE RECORDS SUMMARY | 2020-01-12 11:35 | XMS REPORT ---
Author jC Ordoñez Organization [employer] Address Unknown Phone Unavailable Care Team Providers Care Retreader Name Role Phone JULIO LINDO CP Unavailable [...] disorder, not elsewhere classified 311 Active Medications No Known Medications Results No Known Results Summary Purpose [employer] Submission
--- OUTSIDE RECORDS SUMMARY | 2020-01-12 11:35 | XMS REPORT ---
Author Cj Ordoñez Organization [employer] Address Unknown Phone Unavailable Care Team Providers Care Electronics Commodity Manager Name Role Phone JULIO LINDO Unavailable Allergies [...] Start Date End Date Status Dosage Adderall [facility] [address]-43 30 MG Orally Onc e a day qAM Dr Romero to sign for Alfonzo 2 tablets Results No Known Results Summary Purpose [employer] Submission
--- OUTSIDE RECORDS SUMMARY | 2020-01-12 11:36 | XMS REPORT | Continuity of Care Document ---
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 OLECRANON BURSITIS 12/16/2017 Kiya Eid-Alon A 996.67 INFECTION AND INFLAMMATORY REACTION DUE TO OTHER INTERNAL ORTHOPEDIC DEVICE, IMPLANT, AND GRAFT 12/16/2017 Zach Eid W M70.22 OLECRANON BURSITIS, LEFT ELBOW 12/16/2017 Cristhian Eidu A T84.615A INFECT/INFLM REACTION DUE TO INT FIX OF LEFT ULNA, INIT 12/17/2017 Zach Eid W 726.33 OLECRANON BURSITIS 12/17/2017 Cristhian Eidu A 996.67 INFECTION AND INFLAMMATORY REACTION DUE TO OTHER INTERNAL ORTHOPEDIC DEVICE, IMPLANT, AND GRAFT 12/17/2017 Zach Eid W M70.22 OLECRANON BURSITIS, LEFT ELBOW 12/17/2017 Kiya Eid-Alon A T84.615A INFECT/INFLM REACTION DUE TO INT FIX OF LEFT ULNA, INIT 12/18/2017 Kiya Eid-Alon A 996.67 INFECTION AND INFLAMMATORY REACTION DUE TO OTHER INTERNAL ORTHOPEDIC DEVICE, IMPLANT, AND GRAFT 12/18/2017 Kiya Eid-Alon A T84.615A INFECT/INFLM REACTION DUE TO INT FIX OF LEFT ULNA, INIT 12/19/2017 Escobar Joel A 996.67 INFECTION AND INFLAMMATORY REACTION DUE TO OTHER INTERNAL ORTHOPEDIC DEVICE, IMPLANT, AND GRAFT 12/19/2017 Escobar Joel T84.615A INFECT/INFLM REACTION DUE TO INT FIX OF LEFT ULNA, INIT 12/20/2017 Eid, Kiya-Alon W 726.33 OLECRANON BURSITIS 12/20/2017 Eid, Kiya-Alon A 996.67 INFECTION AND INFLAMMATORY REACTION DUE TO OTHER INTERNAL ORTHOPEDIC DEVICE, IMPLANT, AND GRAFT 12/20/2017 Eid, Kiya-Alon W M70.22 OLECRANON BURSITIS, LEFT ELBOW 12/20/2017 Eid, Kiya-Alon A T84.615A INFECT/INFLM REACTION DUE TO INT FIX OF LEFT ULNA, INIT 12/21/2017 Eid, Kiya-Alon W 726.33 OLECRANON BURSITIS 12/21/2017 Eid, Kiya-Alon A 996.67 INFECTION AND INFLAMMATORY REACTION DUE TO OTHER INTERNAL ORTHOPEDIC DEVICE, IMPLANT, AND GRAFT 12/21/2017 Eid, Kiya-Alon W M70.22 OLECRANON BURSITIS, LEFT ELBOW 12/21/2017 Eid, Kiya-Alon A T84.615A INFECT/INFLM REACTION DUE TO INT FIX OF LEFT ULNA, INIT 12/22/2017 Eid, Kiya-Alon W 726.33 OLECRANON BURSITIS 12/22/2017 Eid, Kiya-Alon A 996.67 INFECTION AND INFLAMMATORY REACTION DUE TO OTHER INTERNAL ORTHOPEDIC DEVICE, IMPLANT, AND GRAFT 12/22/2017 Eid, Kiya-Alon W M70.22 OLECRANON BURSITIS, LEFT ELBOW 12/22/2017 Eid, Kiya-Alon A T84.615A INFECT/INFLM REACTION DUE TO INT FIX OF LEFT ULNA, INIT 12/23/2017 Eid, Kiya-Alon W 726.33 OLECRANON BURSITIS 12/23/2017 Stanton, Kiya-Alon A 996.66 INFECTION AND INFLAMMATORY REACTION DUE TO INTERNAL JOINT PROSTHESIS 12/23/2017 Stanton, Kiya-Alon W M70.22 OLECRANON BURSITIS, LEFT ELBOW 12/23/2017 Eid, Kiya-Alon A T84.59XA INFECTION AND INFLAMMATORY REACTION DUE TO OTHER INTERNAL JOINT PROSTHESIS, INITIAL ENCOUNTER 12/24/2017 Eid, Kiya-Alon W 726.33 OLECRANON BURSITIS 12/24/2017 Eid, Kiya-Alon W 996.66 INFECTION AND INFLAMMATORY REACTION DUE TO INTERNAL JOINT PROSTHESIS 12/24/2017 Eid, Kiya-Alon W M70.22 OLECRANON BURSITIS, LEFT ELBOW 12/24/2017 Eid, Kiya-Alon W T84.59XA INFECT/INFLM REACTION DUE TO OTH INTERNAL JOINT PROSTH, INIT 12/25/2017 Eid, Kiya-Alon W 726.33 OLECRANON BURSITIS 12/25/2017 Eid, Kiya-Alon A 996.66 INFECTION AND INFLAMMATORY REACTION DUE TO INTERNAL JOINT PROSTHESIS 12/25/2017 Eid, Kiya-Alon W M70.22 OLECRANON BURSITIS, LEFT ELBOW 12/25/2017 Eid, Kiya-Alon A T84.59XA INFECT/INFLM REACTION DUE TO OTH INTERNAL JOINT PROSTH, INIT 12/26/2017 Eid, Kiya-Alon W 726.33 OLECRANON BURSITIS 12/26/2017 Eid, Kiya-Alon A 996.66 INFECTION AND INFLAMMATORY REACTION DUE TO INTERNAL JOINT PROSTHESIS 12/26/2017 Eid, Kiya-Alon W M70.22 OLECRANON BURSITIS, LEFT ELBOW 12/26/2017 Eid, Kiya-Alon A T84.59XA INFECT/INFLM REACTION DUE TO OTH INTERNAL JOINT PROSTH, INIT 12/27/2017 Eid, Kiya-Alon W 726.33 OLECRANON BURSITIS 12/27/2017 Eid, Kiya-Alon A 996.66 INFECTION AND INFLAMMATORY REACTION DUE TO INTERNAL JOINT PROSTHESIS 12/27/2017 Eid, Kiya-Alon W M70.22 OLECRANON BURSITIS, LEFT ELBOW 12/27/2017 Eid, Kiya-Alon A T84.59XA INFECT/INFLM REACTION DUE TO OTH INTERNAL JOINT PROSTH, INIT 12/28/2017 Eid, Kiya-Alon W 726.33 OLECRANON BURSITIS 12/28/2017 Eid, Kiya-Alon A 996.66 INFECTION AND INFLAMMATORY REACTION DUE TO INTERNAL JOINT PROSTHESIS 12/28/2017 Eid, Kiya-Alon W M70.22 OLECRANON BURSITIS, LEFT ELBOW 12/28/2017 Eid, Kiya-Alon A T84.59XA INFECT/INFLM REACTION DUE TO OTH INTERNAL JOINT PROSTH, INIT 12/29/2017 Eid, Kiya-Alon W 726.33 OLECRANON BURSITIS 12/29/2017 Eid, Kiya-Alon W M70.22 OLECRANON BURSITIS, LEFT ELBOW 12/29/2017 Eid, Kiya-Alon A 996.66 INFECTION AND INFLAMMATORY REACTION DUE TO INTERNAL JOINT PROSTHESIS 12/29/2017 Eid, Kiya-Alon A T84.59XA INFECTION AND INFLAMMATORY REACTION DUE TO OTHER INTERNAL JOINT PROSTHESIS, INITIAL ENCOUNTER 12/30/2017 Eid, Kiya-Alon W 726.33 OLECRANON BURSITIS 12/30/2017 Eid, Kiya-Alon A 996.66 INFECTION AND INFLAMMATORY REACTION DUE TO INTERNAL JOINT PROSTHESIS 12/30/2017 Eid, Kiya-Alon W M70.22 OLECRANON BURSITIS, LEFT ELBOW 12/30/2017 Eid, Kiya-Alon A T84.59XA INFECT/INFLM REACTION DUE TO OTH INTERNAL JOINT PROSTH, INIT 12/31/2017 Eid, Kiya-Alon W 996.66 INFECTION AND INFLAMMATORY REACTION DUE TO INTERNAL JOINT PROSTHESIS 12/31/2017 Eid, Kiya-Alon W T84.59XA INFECT/INFLM REACTION DUE TO OTH INTERNAL JOINT PROSTH, INIT 01/01/2018 Chacha Zaldivar W 726.33 OLECRANON BURSITIS 01/01/2018 Ronyb, Chacha A 996.66 INFECTION AND INFLAMMATORY REACTION DUE TO INTERNAL JOINT PROSTHESIS 01/01/2018 Ronyb, Chacha W M70.22 OLECRANON BURSITIS, LEFT ELBOW 01/01/2018 Ronyb, Chacha A T84.59XA INFECT/INFLM REACTION DUE TO OTH INTERNAL JOINT PROSTH, INIT 01/02/2018 Eid, Kiya-Alon W 726.33 OLECRANON BURSITIS 01/02/2018 Eid, Kiya-Alon A 996.66 INFECTION AND INFLAMMATORY REACTION DUE TO INTERNAL JOINT PROSTHESIS 01/02/2018 Eid, Kiya-Alon W M70.22 OLECRANON BURSITIS, LEFT ELBOW 01/02/2018 Eid, Kiya-Alon A T84.59XA INFECT/INFLM REACTION DUE TO OTH INTERNAL JOINT PROSTH, INIT 01/03/2018 Eid, Kiya-Alon W 726.33 OLECRANON BURSITIS 01/03/2018 Eid, Kiya-Alon A 996.66 INFECTION AND INFLAMMATORY REACTION DUE TO INTERNAL JOINT PROSTHESIS 01/03/2018 Eid, Kiya-Alon W M70.22 OLECRANON BURSITIS, LEFT ELBOW 01/03/2018 Eid, Kiya-Alon A T84.59XA INFECT/INFLM REACTION DUE TO OTH INTERNAL JOINT PROSTH, INIT 01/04/2018 Eid, Kiya-Alon W 726.33 OLECRANON BURSITIS 01/04/2018 Eid, Kiya-Alon A 996.66 INFECTION AND INFLAMMATORY REACTION DUE TO INTERNAL JOINT PROSTHESIS 01/04/2018 Eid, Kiya-Alon W M70.22 OLECRANON BURSITIS, LEFT ELBOW 01/04/2018 Eid, Kiya-Alon A T84.59XA INFECT/INFLM REACTION DUE TO OTH INTERNAL JOINT PROSTH, INIT 01/05/2018 Eid, Kiya-Alon W 726.33 OLECRANON BURSITIS 01/05/2018 Eid, Kyia-Alon A 996.66 INFECTION AND INFLAMMATORY REACTION DUE TO INTERNAL JOINT PROSTHESIS 01/05/2018 Eid, Kiya-Alon W M70.22 OLECRANON BURSITIS, LEFT ELBOW 01/05/2018 Eid, Kiya-Alon A T84.59XA INFECT/INFLM REACTION DUE TO OTH INTERNAL JOINT PROSTH, INIT 01/06/2018 Eid, Kiya-Laon W 726.33 OLECRANON BURSITIS 01/06/2018 Eid, Kiya-Alon A 996.66 INFECTION AND INFLAMMATORY REACTION DUE TO INTERNAL JOINT PROSTHESIS 01/06/2018 Eid, Kiya-Alon W M70.22 OLECRANON BURSITIS, LEFT ELBOW 01/06/2018 Eid, Kiya-Alon A T84.59XA INFECT/INFLM REACTION DUE TO OTH INTERNAL JOINT PROSTH, INIT 2018 Eid, Kiya-Alon W 726.33 OLECRANON BURSITIS 2018 Eid, Kiya-Alon A 996.66 INFECTION AND INFLAMMATORY REACTION DUE TO INTERNAL JOINT PROSTHESIS 2018 Eid, Kiya-Alon W M70.22 OLECRANON BURSITIS, LEFT ELBOW 2018 Eid, Kiya-Alon A T84.59XA INFECT/INFLM REACTION DUE TO OTH INTERNAL JOINT PROSTH, INIT 01/08/2018 Dionte Johnson W 726.33 OLECRANON BURSITIS 01/08/2018 Dionte Johnson A 996.66 INFECTION AND INFLAMMATORY REACTION DUE TO INTERNAL JOINT PROSTHESIS 01/08/2018 Dionte Johnson W M70.22 OLECRANON BURSITIS, LEFT ELBOW 01/08/2018 Dionte Johnson T84.59 XA INFECT/INFLM REACTION DUE TO OTH INTERNAL JOINT PROSTH, INIT 01/09/2018 Eid, Kiya-Alon W 726.33 OLECRANON BURSITIS 01/09/2018 Eid, Kiya-Alon A 996.66 INFECTION AND INFLAMMATORY REACTION DUE TO INTERNAL JOINT PROSTHESIS 01/09/2018 Eid, Kiya-Alon W M70.22 OLECRANON BURSITIS, LEFT ELBOW 01/09/2018 Eid, Kiya-Alon A T84.59XA INFECT/INFLM REACTION DUE TO OTH INTERNAL JOINT PROSTH, INIT 01/10/2018 Eid, Kiya-Alon W 726.33 OLECRANON BURSITIS 01/10/2018 Eid, Kiya-Alon A 996.66 INFECTION AND INFLAMMATORY REACTION DUE TO INTERNAL JOINT PROSTHESIS 01/10/2018 Eid, Kiya-Alon W M70.22 OLECRANON BURSITIS, LEFT ELBOW 01/10/2018 Eid, Kiya-Alon A T84.59XA INFECT/INFLM REACTION DUE TO OTH INTERNAL JOINT PROSTH, INIT 01/11/2018 Eid, Kiya-Alon W 726.33 OLECRANON BURSITIS 01/11/2018 Eid, Kiya-Alon A 996.66 INFECTION AND INFLAMMATORY REACTION DUE TO INTERNAL JOINT PROSTHESIS 01/11/2018 Eid, Kiya-Alon W M70.22 OLECRANON BURSITIS, LEFT ELBOW 01/11/2018 Zach Eid A T84.59XA INFECT/INFLM REACTION DUE TO OTH INTERNAL JOINT PROSTH, INIT 01/12/2018 Zach Eid W 726.33 OLECRANON BURSITIS 01/12/2018 Zach Eid A 996.66 INFECTION AND INFLAMMATORY REACTION DUE TO INTERNAL JOINT PROSTHESIS 01/12/2018 Zach Eid W M70.22 OLECRANON BURSITIS, LEFT ELBOW 01/12/2018 Zach Eid A T84.59XA INFECT/INFLM REACTION DUE TO OTH INTERNAL JOINT PROSTH, INIT 01/12/2018 TOM HARRISON, JELANI Reynaga Ot G47.33 OBSTRUCTIVE SLEEP APNEA (ADULT) (PEDIATR 01/12/2018 RIVERA HAMMER DO Ot 715.36 LOC OSTEOARTH NOS-L/LEG 01/12/2018 RIVERA HAMMER DO Ot V72.63 PRE-PROCEDURAL LABORATORY EXAMINATION 01/12/2018 RIVERA HAMMER DO Ot V74.8 SCREEN-BACTERIAL DIS NEC 01/12/2018 JOSUE SWENSON MD Ot 272. 4 HYPERLIPIDEMIA NEC/NOS 01/12/2018 JOSUE SWENSON MD Ot 397. 0 TRICUSPID VALVE DISEASE 01/12/2018 JOSUE SWENSON MD Ot 401. 9 HYPERTENSION NOS 01/12/2018 JOSUE SWENSON MD Ot 414. 00 CORON ATHEROSCLER NOS TYPE VESSEL, NATIV 01/12/2018 JOSUE SWENSON MD Ot 424. 0 MITRAL VALVE DISORDER 01/12/2018 JOSUE SWENSON MD Ot 786. 05 SHORTNESS OF BREATH 01/12/2018 JOSUE SWENSON MD Ot 414. 00 CORON ATHEROSCLER NOS TYPE VESSEL, NATIV 01/12/2018 JOSUE SWENSON MD Ot V64. 3 NO PROC FOR REASONS NEC 01/12/2018 JOSUE SWENSON MD Ot 272. 4 HYPERLIPIDEMIA NEC/NOS 01/12/2018 JOSUE SWENSON MD Ot 401. 9 HYPERTENSION NOS 01/12/2018 JOSUE SWENSON MD Ot 414. 00 CORON ATHEROSCLER NOS TYPE VESSEL, NATIV 01/12/2018 JOSUE SWENSON MD Ot 786. 05 SHORTNESS OF BREATH 01/12/2018 RIVERA HAMMER DO Ot 718.86 JT DERANGEMENT NEC-L/LEG 01/12/2018 RIVERA HAMMER DO Ot V72.63 PRE-PROCEDURAL LABORATORY EXAMINATION 01/12/2018 RIVERA HAMMER DO Ot V72.83 EXAM PRE-OPERATIVE NEC 01/12/2018 RIVERA HAMMER DO Ot V74.8 SCREEN-BACTERIAL DIS NEC 01/12/2018 RIVERA HAMMER DO Ot V43.65 KNEE JOINT REPLACEMENT STATUS 01/12/2018 RIVERA HAMMER DO Ot V58.61 ANTICOAGULANTS,LT,CURRENT USE 01/12/2018 RIVERA HAMMER DO Ot V58.83 ENCOUNTER FOR THERAPEUTIC DRUG MONITORIN 01/12/2018 TOM HARRISON, JELANI Reynaga Ot G47.33 OBSTRUCTIVE SLEEP APNEA (ADULT) (PEDIATR 01/13/2018 Stanton, Kiya-Alon W 726.33 OLECRANON BURSITIS 01/13/2018 Stanton, Kiya-Alon A 996.66 INFECTION AND INFLAMMATORY REACTION DUE TO INTERNAL JOINT PROSTHESIS 01/13/2018 Stanton, Kiya-Alon W M70.22 OLECRANON BURSITIS, LEFT ELBOW 01/13/2018 Stanton, Kiya-Alon A T84.59XA INFECT/INFLM REACTION DUE TO OTH INTERNAL JOINT PROSTH, INIT 01/14/2018 Stanton, Kiya-Alon W 726.33 OLECRANON BURSITIS 01/14/2018 Stanton, Kiya-Alon A 996.66 INFECTION AND INFLAMMATORY REACTION DUE TO INTERNAL JOINT PROSTHESIS 01/14/2018 Stanton, Kiya-Alon W M70.22 OLECRANON BURSITIS, LEFT ELBOW 01/14/2018 Stanton, Kiya-Alon A T84.59XA INFECT/INFLM REACTION DUE TO OTH INTERNAL JOINT PROSTH, INIT 01/15/2018 Stanton, Kiya-Alon W 726.33 OLECRANON BURSITIS 01/15/2018 Stanton, Kiya-Alon A 996.66 INFECTION AND INFLAMMATORY REACTION DUE TO INTERNAL JOINT PROSTHESIS 01/15/2018 Stanton, Kiya-Alon W M70.22 OLECRANON BURSITIS, LEFT ELBOW 01/15/2018 Stanton, Kiya-Alon A T84.59XA INFECT/INFLM REACTION DUE TO OTH INTERNAL JOINT PROSTH, INIT 01/16/2018 Stanton, Kiya-Alon W 726.33 OLECRANON BURSITIS 01/16/2018 Eid, Kiya-Alon A 996.66 INFECTION AND INFLAMMATORY REACTION DUE TO INTERNAL JOINT PROSTHESIS 01/16/2018 Eid, Kiya-Alon W M70.22 OLECRANON BURSITIS, LEFT ELBOW 01/16/2018 Eid, Kiya-Alon A T84.59XA INFECT/INFLM REACTION DUE TO OTH INTERNAL JOINT PROSTH, INIT 01/17/2018 Eid, Kiya-Alon W 726.33 OLECRANON BURSITIS 01/17/2018 Eid, Kiya-Alon A 996.66 INFECTION AND INFLAMMATORY REACTION DUE TO INTERNAL JOINT PROSTHESIS 01/17/2018 Eid, Kiya-Alon W M70.22 OLECRANON BURSITIS, LEFT ELBOW 01/17/2018 Eid, Kiya-Alon A T84.59XA INFECT/INFLM REACTION DUE TO OTH INTERNAL JOINT PROSTH, INIT 01/18/2018 Eid, Kiya-Alon W 726.33 OLECRANON BURSITIS 01/18/2018 Eid, Kiya-Alon A 996.66 INFECTION AND INFLAMMATORY REACTION DUE TO INTERNAL JOINT PROSTHESIS 01/18/2018 Eid, Kiya-Alon W M70.22 OLECRANON BURSITIS, LEFT ELBOW 01/18/2018 Eid, Kiya-Alon A T84.59XA INFECT/INFLM REACTION DUE TO OTH INTERNAL JOINT PROSTH, INIT 01/19/2018 Eid, Kiya-Alon W 726.33 OLECRANON BURSITIS 01/19/2018 Eid, Kiya-Alon A 996.66 INFECTION AND INFLAMMATORY REACTION DUE TO INTERNAL JOINT PROSTHESIS 01/19/2018 Eid, Kiya-Alon W M70.22 OLECRANON BURSITIS, LEFT ELBOW 01/19/2018 Eid, Kiya-Alon A T84.59XA INFECT/INFLM REACTION DUE TO OTH INTERNAL JOINT PROSTH, INIT 01/20/2018 Eid, Kiya-Alon W 726.33 OLECRANON BURSITIS 01/20/2018 Eid, Kiya-Alon A 996.66 INFECTION AND INFLAMMATORY REACTION DUE TO INTERNAL JOINT PROSTHESIS 01/20/2018 Eid, Kiya-Alon W M70.22 OLECRANON BURSITIS, LEFT ELBOW 01/20/2018 Eid, Kiya-Alon A T84.59XA INFECT/INFLM REACTION DUE TO OTH INTERNAL JOINT PROSTH, INIT 01/21/2018 Eid, Kiya-Alon W 726.33 OLECRANON BURSITIS 01/21/2018 Eid, Kiya-Alon A 996.66 INFECTION AND INFLAMMATORY REACTION DUE TO INTERNAL JOINT PROSTHESIS 01/21/2018 Eid, Kiya-Alon W M70.22 OLECRANON BURSITIS, LEFT ELBOW 01/21/2018 Eid, Kiya-Alon A T84.59XA INFECT/INFLM REACTION DUE TO OTH INTERNAL JOINT PROSTH, INIT 01/22/2018 Eid, Kiya-Alon W 726.33 OLECRANON BURSITIS 01/22/2018 Eid, Kiya-Alon A 996.66 INFECTION AND INFLAMMATORY REACTION DUE TO INTERNAL JOINT PROSTHESIS 01/22/2018 Eid, Kiya-Alon W M70.22 OLECRANON BURSITIS, LEFT ELBOW 01/22/2018 Eid, Kiya-Alon A T84.59XA INFECT/INFLM REACTION DUE TO OTH INTERNAL JOINT PROSTH, INIT 01/23/2018 Eid, Kiya-Alon W 726.33 OLECRANON BURSITIS 01/23/2018 Eid, Kiya-Alon A 996.66 INFECTION AND INFLAMMATORY REACTION DUE TO INTERNAL JOINT PROSTHESIS 01/23/2018 Eid, Kiya-Alon W M70.22 OLECRANON BURSITIS, LEFT ELBOW 01/23/2018 Eid, Kiya-Alon A T84.59XA INFECT/INFLM REACTION DUE TO OTH INTERNAL JOINT PROSTH, INIT 01/24/2018 Eid, Kiya-Alon W 726.33 OLECRANON BURSITIS 01/24/2018 Eid, Kiya-Alon A 996.66 INFECTION AND INFLAMMATORY REACTION DUE TO INTERNAL JOINT PROSTHESIS 01/24/2018 Eid, Kiya-Alon W M70.22 OLECRANON BURSITIS, LEFT ELBOW 01/24/2018 Eid, Kiya-Alon A T84.59XA INFECT/INFLM REACTION DUE TO OTH INTERNAL JOINT PROSTH, INIT 01/25/2018 Eid, Kiya-Alon W 726.33 OLECRANON BURSITIS 01/25/2018 Edi, Kiya-Alon A 996.66 INFECTION AND INFLAMMATORY REACTION DUE TO INTERNAL JOINT PROSTHESIS 01/25/2018 Eid, Kiya-Alon W M70.22 OLECRANON BURSITIS, LEFT ELBOW 01/25/2018 Eid, Kiya-Alon A T84.59XA INFECT/INFLM REACTION DUE TO OTH INTERNAL JOINT PROSTH, INIT 01/26/2018 Eid, Kiya-Alon W 726.33 OLECRANON BURSITIS 01/26/2018 Eid, Kiya-Alon A 996.66 INFECTION AND INFLAMMATORY REACTION DUE TO INTERNAL JOINT PROSTHESIS 01/26/2018 Eid, Kiya-Alon W M70.22 OLECRANON BURSITIS, LEFT ELBOW 01/26/2018 Eid, Kiya-Alon A T84.59XA INFECT/INFLM REACTION DUE TO OTH INTERNAL JOINT PROSTH, INIT 01/27/2018 Eid, Kiya-Alon W 726.33 OLECRANON BURSITIS 01/27/2018 Eid, Kiya-Alon A 996.66 INFECTION AND INFLAMMATORY REACTION DUE TO INTERNAL JOINT PROSTHESIS 01/27/2018 Eid, Kiya-Alon W M70.22 OLECRANON BURSITIS, LEFT ELBOW 01/27/2018 Eid, Kiya-Alon A T84.59XA INFECT/INFLM REACTION DUE TO OTH INTERNAL JOINT PROSTH, INIT 01/28/2018 Eid, Kiya-Alon W 726.33 OLECRANON BURSITIS 01/28/2018 Eid, Kiya-Alon A 996.66 INFECTION AND INFLAMMATORY REACTION DUE TO INTERNAL JOINT PROSTHESIS 01/28/2018 Eid, Kiya-Alon W M70.22 OLECRANON BURSITIS, LEFT ELBOW 01/28/2018 Eid, Kiya-Alon A T84.59XA INFECT/INFLM REACTION DUE TO OTH INTERNAL JOINT PROSTH, INIT 01/29/2018 Eid, Kiya-Alon W 726.33 OLECRANON BURSITIS 01/29/2018 Eid, Kiya-Alon A 996.66 INFECTION AND INFLAMMATORY REACTION DUE TO INTERNAL JOINT PROSTHESIS 01/29/2018 Eid, Kiya-Alon W M70.22 OLECRANON BURSITIS, LEFT ELBOW 01/29/2018 Eid, Kiya-Alon A T84.59XA INFECT/INFLM REACTION DUE TO OTH INTERNAL JOINT PROSTH, INIT 01/30/2018 Chacha Zaldivar W 726.33 OLECRANON BURSITIS 01/30/2018 Devinmajorshara, Chacha A 996.66 INFECTION AND INFLAMMATORY REACTION DUE TO INTERNAL JOINT PROSTHESIS 01/30/2018 Devinmajorb, Chacha W M70.22 OLECRANON BURSITIS, LEFT ELBOW 01/30/2018 Devinmajorb, Chacha A T84.59XA INFECT/INFLM REACTION DUE TO OTH INTERNAL JOINT PROSTH, INIT 01/31/2018 Eid, Kiya-Alon W 726.33 OLECRANON BURSITIS 01/31/2018 Eid, Kiya-Alon A 996.66 INFECTION AND INFLAMMATORY REACTION DUE TO INTERNAL JOINT PROSTHESIS 01/31/2018 Eid, Kiya-Alon W M70.22 OLECRANON BURSITIS, LEFT ELBOW 01/31/2018 Eid, Kiya-Alon A T84.59XA INFECT/INFLM REACTION DUE TO OTH INTERNAL JOINT PROSTH, INIT 02/01/2018 Eid, Kiya-Alon W 726.33 OLECRANON BURSITIS 02/01/2018 Eid, Kiya-Alon A 996.66 INFECTION AND INFLAMMATORY REACTION DUE TO INTERNAL JOINT PROSTHESIS 02/01/2018 Eid, Kiya-Alon W M70.22 OLECRANON BURSITIS, LEFT ELBOW 02/01/2018 Eid, Kiya-Alon A T84.59XA INFECT/INFLM REACTION DUE TO OTH INTERNAL JOINT PROSTH, INIT 02/02/2018 Eid, Kiya-Alon W 726.33 OLECRANON BURSITIS 02/02/2018 Eid, Kiya-Alon A 996.66 INFECTION AND INFLAMMATORY REACTION DUE TO INTERNAL JOINT PROSTHESIS 02/02/2018 Eid, Kiya-Alon W M70.22 OLECRANON BURSITIS, LEFT ELBOW 02/02/2018 Eid, Kiya-Alon A T84.59XA INFECT/INFLM REACTION DUE TO OTH INTERNAL JOINT PROSTH, INIT 02/03/2018 Eid, Kiya-Alon W 726.33 OLECRANON BURSITIS 02/03/2018 Eid, Kiya-Alon A 996.66 INFECTION AND INFLAMMATORY REACTION DUE TO INTERNAL JOINT PROSTHESIS 02/03/2018 Eid, Kiya-Alon W M70.22 OLECRANON BURSITIS, LEFT ELBOW 02/03/2018 Eid, Kiya-Alon A T84.59XA INFECT/INFLM REACTION DUE TO OTH INTERNAL JOINT PROSTH, INIT 02/17/2018 Eid, Kiya-Alon W 401.9 UNSPECIFIED ESSENTIAL HYPERTENSION 02/17/2018 Eid, Kiya-Alon W 785.1 PALPITATIONS 02/17/2018 Eid, Kiya-Alon W 787.0 NAUSEA AND VOMITING 02/17/2018 Eid, Kiya-Alon W 789.66 ABDOMINAL TENDERNESS, EPIGASTRIC 02/17/2018 Eid, HughAlon W I10 ESSENTIAL (PRIMARY) HYPERTENSION 02/17/2018 Eid, HughAlon W R00.2 PALPITATIONS 02/17/2018 Eid, Kiya-Alon W R10.816 EPIGASTRIC ABDOMINAL TENDERNESS 02/17/2018 Eid, HughAlon W R11.2 NAUSEA WITH VOMITING, UNSPECIFIED 02/17/2018 W 296.30 MARIANNA OR DEPRESSIVE DISORDER, RECURRENT EPISODE, UNSPECIFIED DEGREE 02/17/2018 W 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 02/17/2018 W 599.0 URIN GIULIANA TRACT INFECTION, SITE NOT SPECIFIED 02/17/2018 W F33.9 HERI R DEPRESSIVE DISORDER, RECURRENT, UNSPECIFIED 02/17/2018 W N39.0 URIN GIULIANA TRACT INFECTION, SITE NOT SPECIFIED 02/17/2018 W R45.86 EMO TIONAL LABILITY 02/17/2018 Eid, HughAlon W 401.9 UNSPECIFIED ESSENTIAL HYPERTENSION 02/17/2018 Eid, Kiya-Alon W 785.1 PALPITATIONS 02/17/2018 Eid, Kiya-Alon W 787.0 NAUSEA AND VOMITING 02/17/2018 Eid, Kiya-Alon W 789.66 ABDOMINAL TENDERNESS, EPIGASTRIC 02/17/2018 Eid, Kiya-Alon W I10 ESSENTIAL (PRIMARY) HYPERTENSION 02/17/2018 Eid, Kiya-Alon W R00.2 PALPITATIONS 02/17/2018 Eid, Kiya-Alon W R10.816 EPIGASTRIC ABDOMINAL TENDERNESS 02/17/2018 Eid, Kiya-Alon W R11.2 NAUSEA WITH VOMITING, UNSPECIFIED 03/09/2018 W 309.0 ADJU STMENT DISORDER WITH DEPRESSED MOOD 03/09/2018 W 401.9 UNSP ECIFIED ESSENTIAL HYPERTENSION 03/09/2018 W 780.2 SYNC OPE AND COLLAPSE 03/09/2018 W F43.21 ADJ USTMENT DISORDER WITH DEPRESSED MOOD 03/09/2018 W I10 ESSENT IAL (PRIMARY) HYPERTENSION 03/09/2018 W R55 SYNCOP E AND COLLAPSE 03/09/2018 W T88.7XXD U NSPECIFIED ADVERSE EFFECT OF DRUG OR MEDICAMENT, SUBSEQUENT ENCOUNTER 03/09/2018 W V58.89 ENC OUNTER FOR OTHER SPECIFIED AFTERCARE 03/10/2018 Eid, Kiya-Alon W 780.2 SYNCOPE AND COLLAPSE 03/10/2018 Eid, Kiya-Alon W R55 SYNCOPE AND COLLAPSE 03/10/2018 Eid, Kiya-Alon W 780.2 SYNCOPE AND COLLAPSE 03/10/2018 Eid, Kiya-Alon W R55 SYNCOPE AND COLLAPSE 03/22/2018 W 401.9 UNSP ECIFIED ESSENTIAL HYPERTENSION 03/22/2018 W I10 ESSENT IAL (PRIMARY) HYPERTENSION 03/22/2018 W V15.81 PER ASHLEY HISTORY OF NONCOMPLIANCE WITH MEDICAL TREATMENT, PRESENTING HAZARDS TO HEALTH 03/22/2018 W Z91.14 PAT IENT'S OTHER NONCOMPLIANCE WITH MEDICATION REGIMEN 03/30/2018 W 787.01 MARLON SEA WITH VOMITING 03/30/2018 W R11.2 NAUS EA WITH VOMITING, UNSPECIFIED 04/06/2018 W 296.30 MARIANNA OR DEPRESSIVE DISORDER, RECURRENT EPISODE, UNSPECIFIED DEGREE 04/06/2018 W F33.9 HERI R DEPRESSIVE DISORDER, RECURRENT, UNSPECIFIED 04/12/2018 W 296.30 MARIANNA OR DEPRESSIVE DISORDER, RECURRENT EPISODE, UNSPECIFIED DEGREE 04/12/2018 W 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 04/12/2018 W 401.9 UNSP ECIFIED ESSENTIAL HYPERTENSION 04/12/2018 W F33.9 HERI R DEPRESSIVE DISORDER, RECURRENT, UNSPECIFIED 04/12/2018 W G47.8 OTHE R SLEEP DISORDERS 04/12/2018 W I10 ESSENT IAL (PRIMARY) HYPERTENSION 06/28/2018 Ronny Marc A 787.01 NAUSEA WITH VOMITING 06/28/2018 Ronny Marc A R11.2 NAUSEA WITH VOMITING, UNSPECIFIED 07/26/2018 W 477.8 DALE RGIC RHINITIS DUE TO OTHER ALLERGEN 07/26/2018 W 478.0 HYPE RTROPHY OF NASAL TURBINATES 07/26/2018 W 784.91 POS TNASAL DRIP 07/26/2018 W J30.2 OTHE R SEASONAL ALLERGIC RHINITIS 07/26/2018 W J34.3 HYPE RTROPHY OF NASAL TURBINATES 07/26/2018 W R09.82 POS TNASAL DRIP 08/10/2018 W 780.52 INS OMNIA, UNSPECIFIED 08/10/2018 W G47.00 INS OMNIA, UNSPECIFIED 08/16/2018 W 401.9 UNSP ECIFIED ESSENTIAL HYPERTENSION 08/16/2018 W 780.52 INS OMNIA, UNSPECIFIED 08/16/2018 W G47.00 INS OMNIA, UNSPECIFIED 08/16/2018 W I10 ESSENT IAL (PRIMARY) HYPERTENSION 09/07/2018 W 309.81 POS TTRAUMATIC STRESS DISORDER 09/07/2018 W 381.9 UNSP ECIFIED EUSTACHIAN TUBE DISORDER 09/07/2018 W 478.0 HYPE RTROPHY OF NASAL TURBINATES 09/07/2018 W 780.52 INS OMNIA, UNSPECIFIED 09/07/2018 W F43.10 POS T-TRAUMATIC STRESS DISORDER, UNSPECIFIED 09/07/2018 W G47.00 INS OMNIA, UNSPECIFIED 09/07/2018 W H69.90 UNS PECIFIED EUSTACHIAN TUBE DISORDER, UNSPECIFIED EAR 09/07/2018 W J34.3 HYPE RTROPHY OF NASAL TURBINATES 09/16/2018 W 309.81 POS TTRAUMATIC STRESS DISORDER 09/16/2018 W 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 09/16/2018 W F43.10 POS T-TRAUMATIC STRESS DISORDER, UNSPECIFIED 09/16/2018 W G47.8 OTHE R SLEEP DISORDERS 10/04/2018 W 477.9 DALE RGIC RHINITIS, CAUSE UNSPECIFIED 10/04/2018 W J30.9 DALE RGIC RHINITIS, UNSPECIFIED 10/26/2018 W 088.81 LYM E DISEASE 10/26/2018 W 461.9 ACUT E SINUSITIS, UNSPECIFIED 10/26/2018 W 787.01 MARLON SEA WITH VOMITING 10/26/2018 W A69.20 LYM E DISEASE, UNSPECIFIED 10/26/2018 W E906.4 BIT E OF NONVENOMOUS ARTHROPOD 10/26/2018 W J01.90 ACU TE SINUSITIS, UNSPECIFIED 10/26/2018 W R11.2 NAUS EA WITH VOMITING, UNSPECIFIED 10/26/2018 W W57.XXXA B ITTEN OR STUNG BY NONVENOMOUS INSECT AND OTHER NONVENOMOUS ARTHROPODS, INITIAL ENCOUNTER 11/10/2018 W 401.9 UNSP ECIFIED ESSENTIAL HYPERTENSION 11/10/2018 W 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 4 HYPERLIPIDEMIA NEC/NOS 11/17/2018 JOSUE SWENSON MD Ot 397. 0 TRICUSPID VALVE DISEASE 11/17/2018 JOSUE SWENSON MD Ot 401. 9 HYPERTENSION NOS 11/17/2018 JOSUE SWENSON MD Ot 414. 00 CORON ATHEROSCLER NOS TYPE VESSEL, NATIV 11/17/2018 JOSUE SWENSON MD Ot 424. 0 MITRAL VALVE DISORDER 11/17/2018 JOSUE SWENSON MD Ot 786. 05 SHORTNESS OF BREATH 11/17/2018 JOSUE SWENSON MD Ot 414. 00 CORON ATHEROSCLER NOS TYPE VESSEL, NATIV 11/17/2018 JOSUE SWENSON MD Ot V64. 3 NO PROC FOR REASONS NEC 11/17/2018 JOSUE SWENSON MD Ot 272. 4 HYPERLIPIDEMIA NEC/NOS 11/17/2018 JOSUE SWENSON MD Ot 401. 9 HYPERTENSION NOS 11/17/2018 JOSUE SWENSON MD Ot 414. 00 CORON ATHEROSCLER NOS TYPE VESSEL, NATIV 11/17/2018 JOSUE SWENSON MD Ot 786. 05 SHORTNESS OF BREATH 11/17/2018 HARMAN DO, RIVERA F Ot 718.86 JT DERANGEMENT NEC-L/LEG 11/17/2018 RIVERA HAMMER DO Ot V72.63 PRE-PROCEDURAL LABORATORY EXAMINATION 11/17/2018 RIVERA HAMMER DO Ot V72.83 EXAM PRE-OPERATIVE NEC 11/17/2018 RIVERA HAMMER DO Ot V74.8 SCREEN-BACTERIAL DIS NEC 11/17/2018 RIVERA HAMMER DO Ot V43.65 KNEE JOINT REPLACEMENT STATUS 11/17/2018 RIVERA HAMMER DO Ot V58.61 ANTICOAGULANTS,LT,CURRENT USE 11/17/2018 RIVERA HAMMER DO Ot V58.83 ENCOUNTER FOR THERAPEUTIC DRUG MONITORIN 11/18/2018 BRANDON WOOIN L GROUP MANAGING DIRECTOR Ot R10.84 GENERALIZED ABDOMINAL PAIN 11/18/2018 BRANDON WOOIN L GROUP MANAGING DIRECTOR Ot R11.2 NAUSEA WITH VOMITING, UNSPECIFIED 11/18/2018 AMNA, ZEKE L GROUP MANAGING DIRECTOR Ot R19.7 DIARRHEA, UNSPECIFIED 11/18/2018 AMNA, ZEKE L GROUP MANAGING DIRECTOR Ot Z90.49 ACQUIRED ABSENCE OF OTHER SPECIFIED PART 11/24/2018 W 401.9 UNSP ECIFIED ESSENTIAL HYPERTENSION 11/24/2018 W I10 ESSENT IAL (PRIMARY) HYPERTENSION 11/29/2018 W 401.9 UNSP ECIFIED ESSENTIAL HYPERTENSION 11/29/2018 W 461.9 ACUT E SINUSITIS, UNSPECIFIED 11/29/2018 W I10 ESSENT IAL (PRIMARY) HYPERTENSION 11/29/2018 W J01.90 ACU TE SINUSITIS, UNSPECIFIED 12/08/2018 AMNABRANDONIN L GROUP MANAGING DIRECTOR Ot R10.84 GENERALIZED ABDOMINAL PAIN 12/08/2018 AMNABRANDON GONSALEZIN L GROUP MANAGING DIRECTOR Ot R11.2 NAUSEA WITH VOMITING, UNSPECIFIED 12/08/2018 BRANDON WOOIN L GROUP MANAGING DIRECTOR Ot R19.7 DIARRHEA, UNSPECIFIED 12/08/2018 AMNA, ZEKE L GROUP MANAGING DIRECTOR Ot Z90.49 ACQUIRED ABSENCE OF OTHER SPECIFIED PART 12/08/2018 W 401.9 UNSP ECIFIED ESSENTIAL HYPERTENSION 12/08/2018 W 692.9 CONT ACT DERMATITIS AND OTHER ECZEMA, UNSPECIFIED CAUSE 12/08/2018 W I10 ESSENT IAL (PRIMARY) HYPERTENSION 12/08/2018 W L23.9 DALE RGIC CONTACT DERMATITIS, UNSPECIFIED CAUSE 12/15/2018 Eid, Kiya-Alon W 401.9 UNSPECIFIED ESSENTIAL HYPERTENSION 12/15/2018 Eid, Kiya-Alon W 780.60 FEVER, UNSPECIFIED 12/15/2018 Mike Eidn-Alon W I10 ESSENTIAL (PRIMARY) HYPERTENSION 12/15/2018 Eid, Kiya-Alon W R50.9 FEVER, UNSPECIFIED 12/15/2018 Eid, Kiya-Alon W 401.9 UNSPECIFIED ESSENTIAL HYPERTENSION 12/15/2018 Eid, Kiya-Alon W 780.60 FEVER, UNSPECIFIED 12/15/2018 Eid, Kiya-Alon W 780.8 GENERALIZED HYPERHIDROSIS 12/15/2018 Eid, Kiya-Alon W I10 ESSENTIAL (PRIMARY) HYPERTENSION 12/15/2018 Eid, Kiya-Alon W R50.9 FEVER, UNSPECIFIED 12/15/2018 Eid, Kiya-Alon W R61 GENERALIZED HYPERHIDROSIS 12/15/2018 W 401.9 UNSP ECIFIED ESSENTIAL HYPERTENSION 12/15/2018 W 780.60 FEV ER, UNSPECIFIED 12/15/2018 W 780.8 GENE RALIZED HYPERHIDROSIS 12/15/2018 W I10 ESSENT IAL (PRIMARY) HYPERTENSION 12/15/2018 W R50.9 FEVE R, UNSPECIFIED 12/15/2018 W R61 GENERA LIZED HYPERHIDROSIS 12/15/2018 Eid, Cristhianu W 401.9 UNSPECIFIED ESSENTIAL HYPERTENSION 12/15/2018, Cristhianu W 780.60 FEVER, UNSPECIFIED 12/15/2018 Eid, Kiya-Alon W 780.8 GENERALIZED HYPERHIDROSIS 12/15/2018, Kiya-Alon W I10 ESSENTIAL (PRIMARY) HYPERTENSION 12/15/2018, Cristhianu W R50.9 FEVER, UNSPECIFIED 12/15/2018 Eid, Cristhianu W R61 GENERALIZED HYPERHIDROSIS 12/23/2018 W 786.05 SAMANTHA RTNESS OF BREATH 12/23/2018 W R06.02 SAMANTHA RTNESS OF BREATH 01/12/2019 W 346.90 KENIA MARLA, UNSPECIFIED, WITHOUT MENTION OF INTRACTABLE MIGRAINE, WITHOUT MENTION OF STATUS MIGRAINOSUS 01/12/2019 W G43.909 CA GRAINE, UNSPECIFIED, NOT INTRACTABLE, WITHOUT STATUS MIGRAINOSUS 01/16/2019 W 698.8 OTHE R SPECIFIED PRURITIC CONDITIONS 01/16/[address] BITE, NONVENOMOUS, OF OTHER, MULTIPLE, AND UNSPECIFIED SITES, WITHOUT MENTION OF INFECTION 01/16/2019 W L29.8 OTHE R PRURITUS 01/16/2019 W T14.8 OTHE R INJURY OF UNSPECIFIED BODY REGION 01/08/2020 HARMAN DO, RIVERA Park Ot 718.86 JT DERANGEMENT NEC-L/LEG 01/08/2020 HARMAN DO, RIVERA Park Ot V72.63 PRE-PROCEDURAL LABORATORY EXAMINATION 01/08/2020 HARMAN DO, RIVERA [place] Ot V72.83 EXAM PRE-OPERATIVE NEC 01/08/2020 HARMAN DO, RIVERA [place] Ot V74.8 SCREEN-BACTERIAL DIS NEC 01/08/2020 HARMAN DO, RIVERA [place] Ot V43.65 KNEE JOINT REPLACEMENT STATUS 01/08/2020 HARMAN DO, RIVERA [place] Ot V58.61 ANTICOAGULANTS,LT,CURRENT USE 01/08/2020 HARMAN DO, RIVERA Park Ot V58.83 ENCOUNTER FOR THERAPEUTIC DRUG MONITORIN 01/08/2020 AMNA, ZEKE L GROUP MANAGING DIRECTOR Ot R10.84 GENERALIZED ABDOMINAL PAIN 01/08/2020 AMNA, ZEKE L GROUP MANAGING DIRECTOR Ot R11.2 NAUSEA WITH VOMITING, UNSPECIFIED 01/08/2020 AMNA, ZEKE L GROUP MANAGING DIRECTOR Ot R19.7 DIARRHEA, UNSPECIFIED 01/08/2020 AMNA, ZEKE L GROUP MANAGING DIRECTOR Ot Z90.49 ACQUIRED ABSENCE OF OTHER SPECIFIED PART 01/08/2020 MERCEDES MEEHAN GROUP MANAGING DIRECTOR Ot J98.4 OTHER DISORDERS OF LUNG 01/08/2020 MERCEDES MEEHAN GROUP MANAGING DIRECTOR Ot R05 COUGH 01/08/2020 MERCEDES MEEHAN GROUP MANAGING DIRECTOR Ot R06.02 SHORTNESS OF BREATH 01/08/2020 MERCEDES MEEHAN GROUP MANAGING DIRECTOR Ot Z90.49 ACQUIRED ABSENCE OF OTHER SPECIFIED PART 01/08/2020 MERCEDES MEEHAN GROUP MANAGING DIRECTOR Ot Z95.1 PRESENCE OF AORTOCORONARY BYPASS GRAFT 01/08/2020 MERCEDES MEEHAN GROUP MANAGING DIRECTOR Ot Z98.890 OTHER SPECIFIED POSTPROCEDURAL STATES 01/08/2020 JOSUE SWENSON MD Ot E78. 5 HYPERLIPIDEMIA, UNSPECIFIED 01/08/2020 JOSUE SWENSON MD Ot I10 ESSENTIAL (PRIMARY) HYPERTENSION 01/08/2020 JOSUE SWENSON MD Ot I25. 10 ATHSCL HEART DISEASE OF [place] CORONARY 01/08/2020 JOSUE SWENSON MD Ot I34. 0 NONRHEUMATIC MITRAL (VALVE) INSUFFICIENC 01/08/2020 JOSUE SWENSON MD Ot R00. 2 PALPITATIONS 01/08/2020 JOSUE SWENSON MD Ot R55 SYNCOPE AND COLLAPSE 01/09/2020 JOSUE SWENSON MD Ot E78. 5 HYPERLIPIDEMIA, UNSPECIFIED 01/09/2020 JOSUE SWENSON MD Ot I10 ESSENTIAL (PRIMARY) HYPERTENSION 01/09/2020 JOSUE SWENSON MD Ot I25. 10 ATHSCL HEART DISEASE OF [place] CORONARY 01/09/2020 JOSUE SWENSON MD Ot J98. 6 DISORDERS OF DIAPHRAGM 01/09/2020 JOSUE SWENSON MD Ot R00. 2 PALPITATIONS 01/10/2020 JOSUE SWENSON MD Ot E78. 5 HYPERLIPIDEMIA, UNSPECIFIED 01/10/2020 JOSUE SWENSON MD Ot I10 ESSENTIAL (PRIMARY) HYPERTENSION 01/10/2020 JOSUE SWENSON MD Ot I25. 10 ATHSCL HEART DISEASE OF [place] CORONARY 01/10/2020 JOSUE SWENSON MD Ot I34. 0 NONRHEUMATIC MITRAL (VALVE) INSUFFICIENC 01/10/2020 JOSUE SWENSON MD Ot R00. 2 PALPITATIONS 01/10/2020 JOSUE SWENSON MD Ot R55 SYNCOPE AND COLLAPSE 01/10/2020 HARMANRIVERA JORDAN DO Ot V43.65 KNEE JOINT REPLACEMENT STATUS 01/10/2020 HARMAN RIVERA LU Ot V58.61 ANTICOAGULANTS,LT,CURRENT USE 01/10/2020 HARMANRIVERA JORDAN DO Ot V58.83 ENCOUNTER FOR THERAPEUTIC DRUG MONITORIN 01/10/2020 BRANDON WOOIN Claude GROUP MANAGING DIRECTOR Ot R10.84 GENERALIZED ABDOMINAL PAIN 01/10/2020 BRANDON WOOIN L GROUP MANAGING DIRECTOR Ot R11.2 NAUSEA WITH VOMITING, UNSPECIFIED 01/10/2020 BRANDON WOOIN L GROUP MANAGING DIRECTOR Ot R19.7 DIARRHEA, UNSPECIFIED 01/10/2020 BRANDON WOOIN L GROUP MANAGING DIRECTOR Ot Z90.49 ACQUIRED ABSENCE OF OTHER SPECIFIED PART 01/10/2020 MERCEDES MEEHAN APRN Ot J98.4 OTHER DISORDERS OF LUNG 01/10/2020 MERCEDES MEEHAN GROUP MANAGING DIRECTOR Ot R05 COUGH 01/10/2020 MERCEDES MEEHAN APRN Ot R06.02 SHORTNESS OF BREATH 01/10/2020 MERCEDES MEEHAN APRN Ot Z90.49 ACQUIRED ABSENCE OF OTHER SPECIFIED PART 01/10/2020 MERCEDES MEEHAN APRN Ot Z95.1 PRESENCE OF AORTOCORONARY BYPASS GRAFT 01/10/2020 MERCEDES MEEHAN APRN Ot Z98.890 OTHER SPECIFIED POSTPROCEDURAL STATES 01/10/2020 JOSUE SWENSON MD Ot E78. 5 HYPERLIPIDEMIA, UNSPECIFIED 01/10/2020 JOSUE SWENSON MD Ot I10 ESSENTIAL (PRIMARY) HYPERTENSION 01/10/2020 JOSUE SWENSON MD, Ot I25. 10 ATHSCL HEART DISEASE OF [place] CORONARY 01/10/2020 JOSUE SWENSON MD Ot I34. 0 NONRHEUMATIC MITRAL (VALVE) INSUFFICIENC 01/10/2020 JOSUE SWENSON MD Ot R00. 2 PALPITATIONS 01/10/2020 JOSUE SWENSON MD Ot R55 SYNCOPE AND COLLAPSE 01/10/2020 JOSUE SWENSON MD Ot E78. 5 HYPERLIPIDEMIA, UNSPECIFIED 01/10/2020 JOSUE SWENSON MD Ot I10 ESSENTIAL (PRIMARY) HYPERTENSION 01/10/2020 JOSUE SWENSON MD Ot I25. 10 ATHSCL HEART DISEASE OF [place] CORONARY 01/10/2020 JOSUE SWENSON MD, Ot J98. 6 DISORDERS OF DIAPHRAGM 01/10/2020 JOSUE SWENSON MD Ot R00. 2 PALPITATIONS Procedures Code Description Performed By Per formed On 81.54 TOTA L KNEE REPLACEMENT 08/08/2013 86017 UA L SHANE DIP 10/16/2013 00.82 REVI S OF KNEE REPLACEMENT, FEMORAL COMPO 07/24/2014 28039 AMERITOX 10/18/2014 Results Test Result Range Urinalysis - 11/20/16 12:17 Icotest N/A Negative Urine Crystals 4+ Amorphous Urine Volume Urine Volume Sufficient (10mL) Urine Yeast No Yeast present Urine-Appearance Cloudy Clear Urine-Bacteria Negative Urine-Bilirubin Negative Negative Urine-Blood Negative Negative Urine-Color Yellow Colorless-Lt. [place] ow Urine-Glucose Negative Negative Urine-Ketones Trace Negative Urine-Leukocytes Negative Negative Urine-Nitrite Negative Negative Urine-Other Culture to follow per Doctor's order Urine-pH 5.5 5-8.5 Urine-Protein Negative Negative Urine-RBC Negative Urine-Specific [place] 1.015 1.000-1 .030 Urine-WBC 0-2/HPF Urobilinogen 0.2 E.U./dL 0.2-1.0 Urine Culture - 11/20/16 12:17 PRELIM CULTURE RESULTS No Growth 24 hours FINAL CULTURE RESULTS No Growth 48 hours MEDIA PLATED Setup at 12:39 on 11/20/2016 CULTURE SOURCE VOID Lactic Acid - 03/26/17 21:36 Lactic Acid 16.5 mg/dL 4.5-19.8 Urinalysis - 03/26/17 21:36 Icotest N/A Negative Urine Volume Urine Volume Sufficient (10mL) Urine Yeast No Yeast present Urine-Appearance Clear Clear Urine-Bacteria Negative Urine-Bilirubin Negative Negative Urine-Blood Negative Negative Urine-Color Yellow Colorless-[place] ow Urine-Glucose Negative Negative Urine-Ketones Negative Negative Urine-Leukocytes Negative Negative Urine-Nitrite Negative Negative Urine-Other Urine Saved if Culture Need ed (48hrs from time of collection) Urine-pH 7.0 5-8.5 Urine-Protein Negative Negative Urine-RBC Negative Urine-Specific [place] 1.015 1.000-1 .030 Urine-WBC Nothing Seen on Microscopic Urobilinogen 0.2 E.U./dL 0.2-1.0 Blood Culture - 03/26/17 21:36 PRELIM CULTURE RESULTS Blood Culture Negativ e, No Growth Day 1 FINAL CULTURE RESULTS Blood Culture Negative , No Growth Day 5 MEDIA PLATED Blood Culture Media Position A13 CULTURE SOURCE SECOND BLOOD SITE Blood Culture - 03/26/17 21:36 PRELIM CULTURE RESULTS Blood Culture Negativ e, No Growth Day 1 FINAL CULTURE RESULTS Blood Culture Negative , No Growth Day 5 MEDIA PLATED Blood Culture Media Position A12 CULTURE SOURCE FIRST BLOOD SITE Comprehensive Metabolic Panel - 03/27/17 07:00 Albumin 3.3 g/dL 3.6-5.1 ALP 78 U/L 35-130 ALT 20 U/L 6-45 Anion Gap 12 6-14 AST 14 U/L 2-40 BUN 7 mg/dL 5-25 Calcium 8.6 mg/dL 8.3-10.4 Chloride 110 mmol/L 95-114 CO2 21 mEq/L 22-33 Creat 1.05 mg/dL 0.50-1.50 eGFR 72 mL/min/1.73m2 >59 Globulin 3.0 g/dL 2.3-3.5 Glucose 105 mg/dL 70-110 Osmo 284 280-295 Potassium 4.6 mmol/L 3.5-5.3 Sodium 138 mmol/L 134-148 TBil 0.4 mg/dL 0.2-1.2 TP 6.3 g/dL 6.0-8.3 Rapid Drug Screen,Medical - 03/27/17 20: 37 Amphetamine NEGATIVE NEGATIVE Barbiturates NEGATIVE NEGATIVE Benzodiazepines POSITIVE NEGATIVE Cocaine NEGATIVE NEGATIVE Marijuana NEGATIVE NEGATIVE Methylenedioxymethamphetamine NEGATIVE NEGATIVE Opiates POSITIVE NEGATIVE Oxycodone NEGATIVE NEGATIVE Phencyclidine NEGATIVE NEGATIVE Propoxyphene NEGATIVE NEGATIVE Tricyclic Antidepressant POSITIVE NEGAT ZULEMA Comprehensive Metabolic Panel - 03/28/17 05:25 Albumin 3.4 g/dL 3.6-5.1 ALP 84 U/L 35-130 ALT 20 U/L 6-45 Anion Gap 15 6-14 AST 14 U/L 2-40 BUN 6 mg/dL 5-25 Calcium 8.7 mg/dL 8.3-10.4 Chloride 107 mmol/L 95-114 CO2 19 mEq/L 22-33 Creat 0.80 mg/dL 0.50-1.50 eGFR 99 mL/min/1.73m2 >59 Globulin 3.0 g/dL 2.3-3.5 Glucose 108 mg/dL 70-110 Osmo 281 280-295 Potassium 4.1 mmol/L 3.5-5.3 Sodium 137 mmol/L 134-148 TBil 0.4 mg/dL 0.2-1.2 TP 6.4 g/dL 6.0-8.3 Thyroid Stimulating Hormone - 06/02/17 1 1:23 TSH 0.89 mIU/mL 0.32-5.00 Other Culture - 11/09/17 15:49 PRELIM CULTURE RESULTS Abundant Gram Positiv e - Coag Positive Staph - CHRISTINE / ID to Follow MEDIA PLATED Setup at 16:28 on 11/09/2017 Sensi - 11/09/17 15:49 FINAL CULTURE RESULTS Staphylococcus aureus ([place]) Ampicillin/Sulbactam <=8/4 Ampicillin 4 Amoxicillin/K Clavulanate <=4/2 Ceftriaxone <=8 Clindamycin <=0.5 Cefoxitin Screen <=4 Ciprofloxacin <=1 Daptomycin <=0.5 Erythromycin >4 Nitrofurantoin <=32 Gentamicin <=4 Gentamicin Synergy Screen N/R Inducible Clindamycin >4/0.5 Levofloxacin <=1 Linezolid 4 Moxifloxacin <=0.5 Oxacillin <=0.25 Penicillin 8 Rifampin <=1 Streptomycin Synergy N/R Synercid <=0.5 Trimethoprim/ Sulfamethoxazole <=0.5/9.5 Tetracycline <=4 Vancomycin 2 MRSA Screen - 12/03/17 14:05 FINAL CULTURE RESULTS MRSA Negative Nasal Culture MEDIA PLATED Setup at 14:19 on 12/03/2017 Urinalysis - 12/03/17 14:05 Icotest N/A Negative Urine Volume Urine Volume Sufficient (10mL) Urine-Appearance Clear Clear Urine-Bacteria Trace Urine-Bilirubin Negative Negative Urine-Blood Negative Negative Urine-Color Yellow Colorless-Lt[place] ow Urine-Epithelial Cells 0-5/HPF Urine-Glucose Negative Negative Urine-Ketones Negative Negative Urine-Leukocytes Negative Negative Urine-Nitrite Negative Negative Urine-pH 5.5 5-8.5 Urine-Protein Negative Negative Urine-RBC Negative Urine-Specific [place] 1.020 1.000-1 .030 Urine-WBC Negative Urobilinogen 0.2 E.U./dL 0.2-1.0 Comprehensive Metabolic Panel - 12/03/17 14:06 Albumin 3.8 g/dL 3.6-5.1 ALP 94 U/L 35-130 ALT 12 U/L 6-45 Anion Gap 14 6-14 AST 14 U/L 2-40 BUN 9 mg/dL 5-25 Calcium 9.1 mg/dL 8.3-10.4 Chloride 111 mmol/L 95-114 CO2 22 mEq/L 22-33 Creat 0.87 mg/dL 0.50-1.50 eGFR 90 mL/min/1.73m2 >59 Globulin 2.5 g/dL 2.3-3.5 Glucose 101 mg/dL 70-110 Osmo 294 280-295 Potassium 4.1 mmol/L 3.5-5.3 Sodium 143 mmol/L 134-148 TBil 0.6 mg/dL 0.2-1.2 TP 6.3 g/dL 6.0-8.3 Other Culture - 12/06/17 14:43 PRELIM CULTURE RESULTS No Growth 24 hours FINAL CULTURE RESULTS No Growth 48 hours Anaerobic Culture - 12/06/17 14:43 ANAEROBIC CULTURE FINAL REPORT RESULT 1 NO ANAEROBIC GROWTH IN 72 HOURS. Anaerobic Culture - 12/06/17 14:43 Anaerobic Culture Note BMP - 12/07/17 11:24 Anion Gap 13 6-14 BUN 13 mg/dL 5-25 Calcium 8.9 mg/dL 8.3-10.4 Chloride 112 mmol/L 95-114 CO2 22 mEq/L 22-33 Creat 0.80 mg/dL 0.50-1.50 eGFR 99 mL/min/1.73m2 >59 Glucose 104 mg/dL 70-110 Osmo 296 280-295 Potassium 3.9 mmol/L 3.5-5.3 Sodium 143 mmol/L 134-148 Vancomycin Trough - 12/08/17 09:06 Vanco Trough 3.4 ug/mL 10.0-20.0 Urinalysis - 02/17/18 14:42 Icotest N/A Negative Urine Volume Urine Volume Sufficient (10mL) Urine-Appearance Clear Clear Urine-Bacteria 1+ Urine-Bilirubin Negative Negative Urine-Blood Negative Negative Urine-Color Yellow Colorless-[place] ow Urine-Epithelial Cells 0-5/HPF Urine-Glucose Negative Negative Urine-Ketones Negative Negative Urine-Leukocytes Negative Negative Urine-Mucus 1+ Urine-Nitrite Negative Negative Urine-Other Culture to follow Urine-pH 6.0 5-8.5 Urine-Protein Negative Negative Urine-RBC 2-5/HPF Urine-Specific [place] 1.025 1.000-1 .030 Urine-WBC 2-5/HPF Urobilinogen 0.2 E.U./dL 0.2-1.0 Holter Monitor 48 hour - 03/10/18 09:22 Holter Monitor 48 Hour Complete Comprehensive Metabolic Panel - 06/28/18 14:15 Albumin 4.0 g/dL 3.6-5.1 ALP 90 U/L 35-130 ALT 40 U/L 6-45 Anion Gap 17 6-14 AST 26 U/L 2-40 BUN 5 mg/dL 5-25 Calcium 9.5 mg/dL 8.3-10.4 Chloride 88 mmol/L 95-114 CO2 30 mEq/L 22-33 Creat 0.91 mg/dL 0.50-1.50 eGFR 85 mL/min/1.73m2 >59 Globulin 3.5 g/dL 2.3-3.5 Glucose 143 mg/dL 70-110 Osmo 273 280-295 Potassium 3.1 Result Verified by Repeat Analysis m mol/L 3.5- 5.3 Sodium 132 mmol/L 134-148 TBil 0.4 mg/dL 0.2-1.2 TP 7.5 g/dL 6.0-8.3 Metanephrines, Frac, Qn, 24-Hr - 9 14:04 NORMETANEPHRINE, UR 367 UG/L UNDEFINED NORMETANEPHR.,U,24H 440 UG/24 HR 82-500 METANEPHRINE, UR 131 UG/L UNDEFINED METANEPHRINE, U,24HR 157 UG/24 HR 45-290 Metanephrines, Frac, Qn, 24-Hr - 9 14:04 Normetanephrine, Ur 367 ug/L Undefined Metanephrine, Ur 131 ug/L Undefined Normetanephr.,U,24h 440 ug/24 hr 82-500 Metanephrine, U,24hr 157 ug/24 hr 45-290 Blood Culture - 11/15/18 16:47 PRELIM CULTURE RESULTS Blood Culture Negativ e, No Growth Day 1 FINAL CULTURE RESULTS Blood Culture Negative , No Growth Day 5 MEDIA PLATED Blood Culture Media Position C45 CULTURE SOURCE Right Arm Blood Culture - 11/15/18 16:47 PRELIM CULTURE RESULTS Blood Culture Negativ e, No Growth Day 1 FINAL CULTURE RESULTS Blood Culture Negative , No Growth Day 5 MEDIA PLATED Blood Culture Media Position A13 CULTURE SOURCE Left Arm Complete blood count (CBC) with automate d white blood cell (WBC) differential - 11/17/18 08:34 Blood leukocytes automated count (number/volume) 7.0 10*3/uL 4.3-11.0 Blood erythrocytes automated count (number/volume) 5.19 10*6/uL 4.35-5.85 Venous blood hemoglobin measurement (mass/volume) 15.4 g/dL 13.3-17.7 Blood hematocrit (volume fraction) 44 % 40-54 Automated erythrocyte mean corpuscular volume 85 [ foz_us] 80-99 Automated erythrocyte mean corpuscular h emoglobin (mass per erythrocyte) 30 pg 25-34 Automated erythrocyte mean corpuscular h emoglobin concentration measurement (mass/volume) 35 g/dL 32-36 Automated erythrocyte distribution width ratio 13. 0 % 10.0- 14.5 Automated blood platelet count (count/volume) 229 10*3/uL 130-400 Automated blood platelet mean volume measurement 9.0 [foz_us] 7.4-10.4 Automated blood neutrophils/100 leukocytes 60 % 42-75 Automated blood lymphocytes/100 leukocytes 23 % 12-44 Blood monocytes/100 leukocytes 16 % 0-12 Automated blood eosinophils/100 leukocytes 1 % 0-10 Automated blood basophils/100 leukocytes 0 % 0-10 Blood neutrophils automated count (number/volume) 4.2 10*3 1.8-7.8 Blood lymphocytes automated count (number/volume) 1.6 10*3 1.0-4.0 Blood monocytes automated count (number/volume) 1. 1 10*3 0.0-1.0 Automated eosinophil count 0.1 10*3/uL 0 .0-0.3 Automated blood basophil count (count/volume) 0.0 10*3/uL 0.0-0.1 Comprehensive metabolic panel - 11/17/18 08:34 Serum or plasma sodium measurement (moles/volume) 133 mmol/L 135-145 Serum or plasma potassium measurement (moles/volume) 3.2 mmol/L 3.6-5.0 Serum or plasma chloride measurement (moles/volume) 94 mmol/L 98-107 Carbon dioxide 27 mmol/L 21-32 Serum or plasma anion gap determination (moles/volume) 12 mmol/L 5-14 Serum or plasma urea nitrogen measurement (mass/volume ) 12 mg/dL 7-18 Serum or plasma creatinine measurement (mass/volume) 0.97 mg/dL 0.60-1.30 Serum or plasma urea nitrogen/creatinine mass ratio 12 NRG Serum or plasma creatinine measurement w ith calculation of estimated glomerular filtration rate > NRG Serum or plasma glucose measurement (mass/volume) 108 mg/dL 70-105 Serum or plasma calcium measurement (mass/volume) 9.2 mg/dL 8.5-10.1 Serum or plasma total bilirubin measurement (mass/volu me) 0.5 mg/dL 0.1-1.0 Serum or plasma alkaline phosphatase rené surement (enzymatic activity/volume) 95 U/L 40-136 Serum or plasma aspartate aminotransfera se measurement (enzymatic activity/volume) 16 U/L 5-34 Serum or plasma alanine aminotransferase measurement (enzymatic activity/volume) 20 U/L 0-55 Serum or plasma protein measurement (mass/volume) 7.2 g/dL 6.4-8.2 Serum or plasma albumin measurement (mass/volume) 4.2 g/dL 3.2-4.5 CALCIUM CORRECTED 9.0 mg/dL 8.5-10.1 Serum or plasma amylase measurement (enz ymatic activity/volume) - 11/17/18 08:34 Serum or plasma amylase measurement (enzymatic activit y/volume) 36 U/L 25-125 Lipase - 11/17/18 08:34 Lipase 15 U/L 8-78 C-Reactive Protein - 12/15/18 14:30 C-Reactive Protein 0.19 mg/dL 0.00-0.50 Blood Culture - 12/15/18 14:30 PRELIM CULTURE RESULTS Blood Culture Negativ e, No Growth Day 1 FINAL CULTURE RESULTS Blood Culture Negative , No Growth Day 5 MEDIA PLATED Setup at 21:26 on 12/15/2018X [id number] Culture Media Position B31 CULTURE SOURCE drawn @ Left AC Ehrlichia Ab Panel - 12/15/18 14:30 E. CHAFFEENSIS (HME) IGG TITER NEGATIVE NEG:<1:64 E. CHAFFEENSIS (HME) IGM TITER NEGATIVE NEG:<1:20 HGE IGG TITER NEGATIVE NEG:<1:64 HGE IGM TITER NEGATIVE NEG:<1:20 Kalyan Con Spotted Fever, IgM - 12/15/18 14:30 [facility] SPOTTED FEVER, IGM 0.30 INDEX 0.00-0.89 Francisella tularensis Antibody IFA - 14:30 FRANCISELLA TULARENSIS IGG NEGATIVE NEG ATIVE FRANCISELLA TULARENSIS IGM NEGATIVE NEG ATIVE Anticardiolip Ab, IgA/G/M, Qn - 12/15/19 15:33 Anticardiolipin Ab,IgG,Qn <9 GPL U/mL 0- 14 Anticardiolipin Ab,IgM,Qn <9 MPL U/mL 0- 12 Anticardiolipin Ab,IgA,Qn <9 APL U/mL 0- 11 Francisella tularensis Abs - 12/15/18 14 :30 Francisella tularensis IgG Negative Neg ative Francisella tularensis IgM Negative Neg ative Ehrlichia Ab Panel - 12/15/18 14:30 E. chaffeensis (HME) IgG Titer Negative Neg:<1:64 E. chaffeensis (HME) IgM Titer Negative Neg:<1:20 HGE IgG Titer Negative Neg:<1:64 HGE IgM Titer Negative Neg:<1:20 Blood Culture - 12/15/18 15:00 PRELIM CULTURE RESULTS Blood Culture Negativ e, No Growth Day 1 FINAL CULTURE RESULTS Blood Culture Negative , No Growth Day 5 MEDIA PLATED Setup at 21:25 on 12/15/2018X [id number] Culture Media Position A11 CULTURE SOURCE drawn @ Right AC Arterial Blood Gas - 12/23/18 11:15 Base -1.00 mmol/L 1.80-4.20 HCO3 24 mmol/L 20-31 O2 Sat 96 % 95-100 pCO2 41 mm/Hg 35-45 pH 7.38 7.35-7.45 PO2 80 mm/Hg 80-95 Thyroid Stimulating Hormone - 08/08/19 1 4:11 TSH 0.58 mIU/mL 0.32-5.00 CBC with Auto Diff - 10/23/19 15:24 Baso% 0.30 % 0.00-2.50 Eos 0.2 K/uL 0.0-0.7 Eos% 3.3 % 0.0-7.0 Hct 43.6 % 42.0-52.0 Hgb 15.5 g/dL 14.0-17.0 Lym 1.33 K/uL 0.60-3.40 Lym% 18.0 % 10.0-50.0 MCH 31.1 pg 27.0-31.2 MCHC 35.6 g/dL 32.0-36.0 MCV 87.4 fL 80.0-97.0 [place]% 11.7 % 0.0-12.0 MPV 8.5 fL 7.4-10.0 [place]% 66.7 % 37.0-80.0 Plt 197 K/uL 150-400 RBC 4.99 M/uL 4.20-5.40 RDW 12.6 % 11.6-14.8 WBC 7.38 K/uL 5.00-10.00 [place] 4.93 K/uL 2.00-6.90 [place] 0.9 K/uL 0.0-0.9 Baso 0.0 K/uL 0.0-0.2 Urine Culture - 11/06/19 14:15 PRELIM CULTURE RESULTS No Growth 24 hours FINAL CULTURE RESULTS No Growth 48 hours CULTURE SOURCE [id number] Arterial blood gas measurement - 0 16:05 Blood pCO2 40 mm[Hg] 35-45 Blood pO2 89 mm[Hg] 79-93 Arterial blood bicarbonate measurement (moles/volume) 23 mmol/L 23-27 Arterial blood base excess by calculation -1.1 mmo l/L -2.5-2.5 Arterial blood oxygen saturation measurement 97 % 94-100 * Inhaled oxygen flow rate RA NRG Arterial blood pH measurement with patient temperature correction 7.38 7.37-7.43 Arterial blood carbon dioxide, total measurement (mole s/volume) 24.5 mmol/L 21.0-31.0 Body site L RAD NRG Assessment of wrist artery patency prior to arterial p uncture YES-POS NRG Setting of ventilation mode NO NR G Measurement of body temperature 36.7 NRG Coronavirus SARS-CoV-2 SO 2018 - 0 07:40 Coronavirus Ab [Units/volume] in Serum Negative Negative Automated blood complete blood count (he mogram) panel - 01/12/20 07:50 Blood leukocytes automated count (number/volume) 6.2 10*3/uL 4.3-11.0 Blood erythrocytes automated count (number/volume) 4.69 10*6/uL 4.35-5.85 Venous blood hemoglobin measurement (mass/volume) 13.9 g/dL 13.3-17.7 Blood hematocrit (volume fraction) 40 % 40-54 Automated erythrocyte mean corpuscular volume 85 [ foz_us] 80-99 Automated erythrocyte mean corpuscular h emoglobin (mass per erythrocyte) 30 pg 25-34 Automated erythrocyte mean corpuscular h emoglobin concentration measurement (mass/volume) 35 g/dL 32-36 Automated erythrocyte distribution width ratio 13. 6 % 10.0- 14.5 Automated blood platelet count (count/volume) 211 10*3/uL 130-400 Automated blood platelet mean volume measurement 8.7 [foz_us] 7.4-10.4 Complete urinalysis with reflex to cultu re - 01/12/20 07:50 Urine color determination YELLOW NRG Urine clarity determination CLEAR NR G Urine pH measurement by test strip 5.5 5-9 Specific gravity of urine by test strip 1.010 1.016-1.022 Urine protein assay by test strip, semi-quantitative NEGATIVE NEGATIVE Urine glucose detection by automated test strip NE GATIVE NEGATIVE Erythrocytes detection in urine sediment by light micr oscopy NEGATIVE NEGATIVE Urine ketones detection by automated test strip NE GATIVE NEGATIVE Urine nitrite detection by test strip NEGATIVE NEGATIVE Urine total bilirubin detection by test strip NEGA TIVE NEGATIVE Urine urobilinogen measurement by automated test strip (mass/volume) 0.2 mg/dL < = 1.0 Urine leukocyte esterase detection by dipstick NEG ATIVE NEGATIVE Automated urine sediment erythrocyte cou nt by microscopy (number/high power field) NONE NRG Automated urine sediment leukocyte count by microscopy (number/high power field) RARE NRG Bacteria detection in urine sediment by light microsco py NEGATIVE NRG Crystals detection in urine sediment by light microsco py NONE NRG Casts detection in urine sediment by light microscopy NONE NRG Mucus detection in urine sediment by light microscopy NEGATIVE NRG Complete urinalysis with reflex to culture NO NRG PT panel in platelet poor plasma by coag ulation assay - 01/12/20 07:50 Prothrombin time (PT) in platelet poor plasma by coagu lation assay 13.3 s 12.2-14.7 INR in platelet poor plasma or blood by coagulation as say 1.0 0.8-1.4 Activated partial thromboplastin time (a PTT) in platelet poor plasma bycoagulation assay - 01/12/20 07:50 Activated partial thromboplastin time (a PTT) in platelet poor plasma bycoagulation assay 27 s 24-35 Comprehensive metabolic panel - 01/12/20 07:50 Serum or plasma sodium measurement (moles/volume) 137 mmol/L 135-145 Serum or plasma potassium measurement (moles/volume) 3.4 mmol/L 3.6-5.0 Serum or plasma chloride measurement (moles/volume) 104 mmol/L 98-107 Carbon dioxide 22 mmol/L 21-32 Serum or plasma anion gap determination (moles/volume) 11 mmol/L 5-14 Serum or plasma urea nitrogen measurement (mass/volume ) 12 mg/dL 7-18 Serum or plasma creatinine measurement (mass/volume) 1.23 mg/dL 0.60-1.30 Serum or plasma urea nitrogen/creatinine mass ratio 10 NRG Serum or plasma creatinine measurement w ith calculation of estimated glomerular filtration rate 60 NRG Serum or plasma glucose measurement (mass/volume) 101 mg/dL 70-105 Serum or plasma calcium measurement (mass/volume) 8.7 mg/dL 8.5-10.1 Serum or plasma total bilirubin measurement (mass/volu me) 0.4 mg/dL 0.1-1.0 Serum or plasma alkaline phosphatase rené surement (enzymatic activity/volume) 81 U/L 40-136 Serum or plasma aspartate aminotransfera se measurement (enzymatic activity/volume) 22 U/L 5-34 Serum or plasma alanine aminotransferase measurement (enzymatic activity/volume) 35 U/L 0-55 Serum or plasma protein measurement (mass/volume) 7.1 g/dL 6.4-8.2 Serum or plasma albumin measurement (mass/volume) 4.2 g/dL 3.2-4.5 CALCIUM CORRECTED 8.5 mg/dL 8.5-10.1 Lipid 1996 panel - 01/12/20 07:50 Serum or plasma triglyceride measurement (mass/volume) 88 mg/dL <150 Serum or plasma cholesterol measurement (mass/volume) 123 mg/dL < 200 Serum or plasma cholesterol in HDL measurement (mass/v olume) 44 mg/dL 40-60 Cholesterol in LDL [mass/volume] in serum or plasma by direct assay 65 mg/dL 1-129 Serum or plasma cholesterol in VLDL measurement (mass/ volume) 18 mg/dL 5-40 Encounters ACCT No. Visit Date/Time Discharge Status Pt. Type Provider Facility Loc./Unit Complaint [id number] 10/24/2014 15:32:00 10/24/2014 23:59: 59 CLS Outpatient JUAN JOSÉ PADILLA APRN [id number] 10/15/2014 09:35:00 10/15/2014 23:59: 59 CLS Outpatient JULIO VU [id number] 10/12/2014 13:29:00 10/12/2014 23:59: 59 CLS Outpatient JUAN JOSÉ PADILLA APRN [id number] 08/17/2014 09:39:00 08/17/2014 23:59: 59 CLS Outpatient JUAN JOSÉ PADILLA APRN [id number] 07/16/2014 11:08:00 07/16/2014 23:59: 59 CLS Outpatient JULIO VU [id number] 02/14/2014 10:52:00 02/14/2014 23:59: 59 CLS Outpatient MINE HULL APRN [id number] 10/16/2013 08:38:00 10/16/2013 23:59: 59 CLS Outpatient JUAN JOSÉ PADILLA APRN [id number] 10/16/2013 08:38:00 10/16/2013 23:59: 59 CLS Outpatient JUAN JOSÉ PADILLA APRN [id number] 09/07/2013 11:39:00 09/07/2013 23:59: 59 CLS Outpatient MINE HULL APRN [id number] 05/22/2013 12:51:00 05/22/2013 23:59: 59 CLS Outpatient MINE HULL APRN [id number] 01/12/2013 07:51:00 01/12/2013 23:59: 59 CLS Outpatient JUAN JOSÉ PADILLA APRN [id number] 01/02/2020 16:00:00 01/02/2020 23:59 :00 DIS Outpatient WIGGINSMALAIKA [id number] 12/05/2019 15:23:00 12/05/2019 23:59 :00 DIS Outpatient MALAIKA WIGGINS [id number] 11/06/2019 16:52:00 11/06/2019 23:59 :00 DIS Outpatient MALAIKA WIGGINS [id number] 11/06/2019 15:01:00 11/06/2019 23:59 :00 DIS Outpatient MALAIKA WIGGINS [id number] 10/23/2019 15:42:00 10/23/2019 23:59 :00 DIS Outpatient MALAIKA WIGGINS [id number] 10/23/2019 15:16:00 10/23/2019 23:59 :00 DIS Outpatient MALAIKA WIGGINS [id number] 09/26/2019 14:03:00 09/26/2019 23:59 :00 DIS Outpatient MALAIKA WIGGINS [id number] 09/08/2019 15:09:00 09/08/2019 23:59 :00 DIS Outpatient Cindy Garvin [id number] 09/05/2019 08:35:00 09/05/2019 23:59 :00 DIS Outpatient MALAIKA WIGGINS [id number] 08/21/2019 15:27:00 08/21/2019 23:59 :00 DIS Outpatient MALAIKA WIGGINS [id number] 08/08/2019 14:11:00 08/08/2019 23:59 :00 DIS Outpatient JOSUE SWENSON [id number] 06/12/2019 13:16:00 06/12/2019 23:59 :00 DIS Outpatient MALAIKA WIGGINS [id number] 05/30/2019 16:45:00 05/30/2019 23:59: 00 DIS Outpatient MALAIKA WIGGINS [id number] 05/08/2019 14:49:00 05/08/2019 23:59: 00 DIS Outpatient MALAIKA WIGGINS [id number] 05/01/2019 12:54:00 05/01/2019 23:59 :00 DIS Outpatient MALAIKA WIGGINS [id number] 04/18/2019 14:50:00 04/18/2019 23:59: 00 DIS Outpatient UznigaChristine [id number] 04/11/2019 16:00:00 04/11/2019 23:59: 00 DIS Outpatient Zuniga, Christine [id number] 01/18/2019 00:00:00 01/18/2019 23:59: 00 DIS Outpatient Hugh EidAlon [id number] 12/23/2018 11:17:00 12/23/2018 23:59: 00 DIS Outpatient Hugh EidAlon [id number] 12/15/2018 20:45:00 12/15/2018 23:59: 00 DIS Outpatient Hugh EidAlon [id number] 11/15/2018 16:45:00 11/15/2018 23:59: 00 DIS Outpatient MEHDI MORRIS [id number] 11/15/2018 13:57:00 11/15/2018 23:59: 00 DIS Outpatient Hugh EidAlon [id number] 06/28/2018 12:53:00 06/28/2018 17:32: 00 DIS Outpatient [facility] [id number] 04/19/2018 15:50:00 04/19/2018 23:59: 00 DIS Outpatient JELANI SANTOS [id number] 03/10/2018 09:18:00 03/10/2018 23:59: 00 DIS Outpatient Hugh EidAlon [id number] 02/17/2018 14:41:00 02/17/2018 23:59: 00 DIS Outpatient Hugh EidAlon [id number] 02/03/2018 07:04:00 02/03/2018 08:20: 00 DIS Outpatient Hugh EidAlon [id number] 02/02/2018 09:00:00 02/02/2018 23:59: 00 DIS Outpatient ILIANA, ROXANA [id number] 02/02/2018 08:40:00 02/02/2018 23:59: 00 DIS Outpatient ILIANA, ROXANA [id number] 02/02/2018 07:04:00 02/02/2018 08:31: 00 DIS Outpatient Eid, Cristhianu [id number] 02/01/2018 07:21:00 02/01/2018 08:34: 00 DIS Outpatient Eid, Cristhianu [id number] 01/31/2018 07:10:00 01/31/2018 08:18: 00 DIS Outpatient Eid, Cristhianu [id number] 01/30/2018 08:11:00 01/30/2018 09:24: 00 DIS Outpatient Brokob, Chacha [id number] 01/29/2018 07:22:00 01/29/2018 08:33: 00 DIS Outpatient Eid, Critshianu [id number] 01/28/2018 07:17:00 01/28/2018 08:40: 00 DIS Outpatient Eid, HughAlon [id number] 01/27/2018 07:03:00 01/27/2018 08:15: 00 DIS Outpatient Eid, HughAlon [id number] 01/26/2018 07:12:00 01/26/2018 08:23: 00 DIS Outpatient Eid, HughAlon [id number] 01/25/2018 06:49:00 01/25/2018 08:11: 00 DIS Outpatient Eid, HughAlon [id number] 01/24/2018 06:59:00 01/24/2018 08:13: 00 DIS Outpatient Eid, KiyaKenyatta [id number] 01/23/2018 07:02:00 01/23/2018 08:05: 00 DIS Outpatient Eid, HughAlon [id number] 01/22/2018 07:28:00 01/22/2018 08:49: 00 DIS Outpatient Eid, KiyaKenyatta [id number] 01/21/2018 07:23:00 01/21/2018 08:37: 00 DIS Outpatient Eid, KiyaKenyatta [id number] 01/20/2018 07:29:00 01/20/2018 08:41: 00 DIS Outpatient Eid, KiyaKenyatta [id number] 01/19/2018 07:41:00 01/19/2018 08:51: 00 DIS Outpatient Eid, Kiya-Alon [id number] 01/18/2018 07:42:00 01/18/2018 09:00: 00 DIS Outpatient Eid, Kiya-Alon [id number] 01/17/2018 07:02:00 01/17/2018 08:15: 00 DIS Outpatient Eid, Kiya-Alon [id number] 01/16/2018 07:33:00 01/16/2018 08:53: 00 DIS Outpatient Eid, Kiya-Alon [id number] 01/15/2018 07:30:00 01/15/2018 08:45: 00 DIS Outpatient Eid, Kiya-Alon [id number] 01/14/2018 07:15:00 01/14/2018 08:31: 00 DIS Outpatient Eid, KiyaKenyatta [id number] 01/13/2018 07:06:00 01/13/2018 08:20: 00 DIS Outpatient Eid, Kiya-Alon [id number] 01/12/2018 07:25:00 01/12/2018 08:50: 00 DIS Outpatient Eid, Kiya-Alon [id number] 01/11/2018 07:24:00 01/11/2018 08:32: 00 DIS Outpatient Eid, Kiya-Alon [id number] 01/10/2018 07:17:00 01/10/2018 08:33: 00 DIS Outpatient Eid, Kiya-Alon [id number] 01/09/2018 07:00:00 01/09/2018 08:32: 00 DIS Outpatient Eid, KiyaCarli [id number] 01/08/2018 07:34:00 01/08/2018 09:04: 00 DIS Outpatient GossDionte swan [id number] 2018 07:50:00 2018 09:08: 00 DIS Outpatient Eid, Zach [id number] 01/06/2018 07:37:00 01/06/2018 09:03: 00 DIS Outpatient Eid, Kiya-Alon [id number] 01/05/2018 07:45:00 01/05/2018 09:02: 00 DIS Outpatient Eid, Zach [id number] 01/04/2018 07:53:00 01/04/2018 09:15: 00 DIS Outpatient Eid, Kiya-Alon [id number] 01/03/2018 07:52:00 01/03/2018 09:17: 00 DIS Outpatient Eid, KiyaKenyatta [id number] 01/02/2018 07:49:00 01/02/2018 09:18: 00 DIS Outpatient Eid, HughAlon [id number] 01/01/2018 07:46:00 01/01/2018 09:01: 00 DIS Outpatient Brokob, Chacha [id number] 12/31/2017 08:03:00 12/31/2017 09:20: 00 DIS Outpatient Eid, HughAlon [id number] 12/30/2017 08:27:00 12/30/2017 09:50: 00 DIS Outpatient Eid, KiyaCarli [id number] 12/29/2017 08:05:00 12/29/2017 09:05: 00 DIS Outpatient Eid, KiyaCarli [id number] 12/28/2017 08:12:00 12/28/2017 10:22: 00 DIS Outpatient Eid, KiyaCarli [id number] 12/27/2017 08:54:00 12/27/2017 10:40: 00 DIS Outpatient Eid, KiyaCarli [id number] 12/26/2017 08:13:00 12/26/2017 09:41: 00 DIS Outpatient Eid, KiyaCarli [id number] 12/25/2017 08:30:00 12/25/2017 10:31: 00 DIS Outpatient Eid, KiyaCarli [id number] 12/24/2017 08:41:00 12/24/2017 10:20: 00 DIS Outpatient Eid, Zach [id number] 12/23/2017 08:34:00 12/23/2017 09:50: 00 DIS Outpatient Eid, KiyaCarli [id number] 12/22/2017 10:07:00 12/22/2017 23:59: 00 DIS Outpatient ILIANA, ROXANA [id number] 12/22/2017 08:43:00 12/22/2017 10:05: 00 DIS Outpatient Eid, Zach [id number] 12/21/2017 13:43:00 12/21/2017 23:59: 00 DIS Outpatient TOM, JELANI [id number] 12/21/2017 08:21:00 12/21/2017 09:39: 00 DIS Outpatient Eid, Zach [id number] 12/20/2017 08:16:00 12/20/2017 09:26: 00 DIS Outpatient Eid, KiyaAlon [id number] 12/19/2017 08:19:00 12/19/2017 09:50: 00 DIS Outpatient PaoniEscobar [id number] 12/18/2017 08:31:00 12/18/2017 09:38: 00 DIS Outpatient Eid, HughAlon [id number] 12/17/2017 07:03:00 12/17/2017 09:00: 00 DIS Outpatient Eid, HughAlon [id number] 12/16/2017 08:54:00 12/16/2017 10:03: 00 DIS Outpatient Eid, HughAlon [id number] 12/15/2017 08:16:00 12/15/2017 09:42: 00 DIS Outpatient Eid, HughAlon [id number] 12/14/2017 08:39:00 12/14/2017 10:05: 00 DIS Outpatient Eid, HughAlon [id number] 12/13/2017 07:57:00 12/13/2017 09:16: 00 DIS Outpatient Eid, HughAlon [id number] 12/12/2017 08:28:00 12/12/2017 09:55: 00 DIS Outpatient Eid, Kiya-Alon [id number] 12/11/2017 08:09:00 12/11/2017 09:25: 00 DIS Outpatient Eid, Kiya-Alon [id number] 12/10/2017 08:43:00 12/10/2017 10:20: 00 DIS Outpatient Eid, Kiya-Alon [id number] 12/09/2017 07:32:00 12/09/2017 09:37: 00 DIS Outpatient Eid, Kiya-Alon [id number] 12/08/2017 08:45:00 12/08/2017 12:20: 00 DIS Outpatient Eid, Kiya-Alon [id number] 12/07/2017 10:42:00 12/07/2017 13:30: 00 DIS Outpatient Eid, KiyaCalri [id number] 12/06/2017 09:37:00 12/06/2017 16:30: 00 DIS Outpatient ILIANAROXANA [id number] 12/03/2017 13:31:00 12/03/2017 23:59: 00 DIS Outpatient SpenceroJamarcus [id number] 12/01/2017 08:42:00 12/01/2017 23:59: 00 DIS Outpatient ILIANAROXANA FERREIRA [id number] 11/09/2017 15:49:00 11/09/2017 23:59: 00 DIS Outpatient Stanton, Zach [id number] 11/05/2017 12:35:00 11/05/2017 23:59: 00 DIS Outpatient Stanton, Zach [id number] 11/05/2017 11:47:00 11/05/2017 23:59: 00 DIS Outpatient Eid, Zach [id number] 10/27/2017 10:28:00 10/27/2017 23:59: 00 DIS Outpatient Eid, Zach [id number] 06/02/2017 11:12:00 06/02/2017 23:59: 00 DIS Outpatient Eid, Zach [id number] 06/02/2017 09:21:00 06/02/2017 23:59: 00 DIS Outpatient Zach Eid [id number] 03/26/2017 20:54:00 03/28/2017 09:37: 00 DIS Inpatient Eid, Zach [facility] MED-SURG [id number] 11/20/2016 12:16:00 11/20/2016 23:59: 00 DIS Outpatient Zach Eid [id number] 01/16/2019 15:01:00 Document Registration [id number] 01/12/2019 13:07:00 Document Registration [id number] 12/23/2018 08:27:00 Document Registration [id number] 12/15/2018 13:44:00 Document Registration [id number] 12/08/2018 15:05:00 Document Registration [id number] 11/29/2018 09:08:00 Document Registration [id number] 11/24/2018 16:14:00 Document Registration [id number] 11/10/2018 13:03:00 Document Registration [id number] 10/26/2018 13:20:00 Document Registration [id number] 10/04/2018 10:58:00 Document Registration [id number] 09/16/2018 13:03:00 Document Registration [id number] 09/07/2018 13:34:00 Document Registration [id number] 08/16/2018 14:25:00 Document Registration [id number] 08/10/2018 13:30:00 Document Registration [id number] 07/26/2018 13:28:00 Document Registration [id number] 07/01/2018 01:15:30 Document Registration [id number] 04/12/2018 10:21:00 Document Registration [id number] 04/06/2018 14:10:00 Document Registration [id number] 03/30/2018 14:05:00 Document Registration [id number] 03/22/2018 09:50:00 Document Registration [id number] 03/09/2018 14:06:00 Document Registration [id number] 02/17/2018 13:17:00 Document Registration [id number] 12/14/2017 13:20:00 Document Registration [id number] 12/09/2017 11:07:00 Document Registration [id number] 11/17/2017 09:54:00 Document Registration [id number] 11/09/2017 13:21:00 Document Registration [id number] 11/05/2017 10:06:00 Document Registration [id number] 11/02/2017 09:57:00 Document Registration [id number] 10/21/2017 10:31:00 Document Registration [id number] 08/04/2017 14:52:00 Document Registration [id number] 07/13/2017 09:29:00 Document Registration [id number] 06/02/2017 10:02:00 Document Registration [id number] 05/18/2017 09:30:00 Document Registration [id number] 05/07/2017 08:31:00 Document Registration [id number] 04/27/2017 15:37:00 Document Registration [id number] 04/13/2017 08:38:00 Document Registration [id number] 04/02/2017 10:51:00 Document Registration [id number] 03/27/2017 01:33:11 Document Registration [id number] 12/05/2015 10:09:00 Document Registration [id number] 12/16/2017 18:13:00 Document Registration [id number] 11/21/2018 18:07:00 Document Registration [id number] 12/19/2019 14:10:00 Document Registration [id number] 12/21/2018 12:14:00 Document Registration [id number] 01/08/2020 07:56:00 020 23:59:59 CLS Outpatient LEELA HARRISON, JOSUE Cardoso [facility] CARD SYNCOPE,HYPERLIPIDEMIA,HTN,CAD,PALPITATIONS [id number] 01/04/2020 09:33:00 020 23:59:59 CLS Outpatient LEELA HARRISON, JOSUE Cardoso [facility] CARD SYNCOPE,HYPERLIPIDEMIA,HTN,CAD,PALPITATIONS [id number] 12/08/2019 13:50:00 020 23:59:59 CLS Outpatient MERCEDES MEEHAN [employer] [facility] RT SOB,COUGH,DYSPNEA,ABNORMALITIES OF BREATHING [id number] 11/17/2018 08:21:00 019 23:59:59 CLS Outpatient ZEKE WOO [employer]NA[employer]ING DIRECT[employer] [facility] RAD GENERALIZED ABD PAIN [id number] 12/21/2017 15:09:00 018 23:59:59 CLS Preadmit TOM HARRISON, JELANI Reynaga [facility] SLEEP LUI [id number] 11/24/2017 09:55:00 018 14:35:00 DIS Outpatient JAMARCUS MULLIGAN MD [facility] ENDO REFLUX [id number] 11/22/2017 06:23:00 018 15:57:00 DIS Outpatient JAMARCUS MULLIGAN MD [facility] PREOP COLO/EGD [id number] 03/24/2017 09:18:00 017 12:17:00 DIS Outpatient DAMEON AUGUSTE MD [facility] REHAB LEFT TKA [id number] 08/16/2014 09:00:00 015 23:59:59 CLS Outpatient RIVERA HAMMER DO [facility] REHAB S/P R TKR [id number] 08/02/2014 15:02:00 015 23:59:59 CLS Outpatient RIVERA HAMMER DO [facility] HH ANTICOAG THERAP Y, TKR [id number] 07/24/2014 05:50:00 16:15:00 DIS Inpatient RIVERA HAMMER DO [facility] SURGICAL RIGHT TOAL KNEE INSTAB ILITY [id number] 07/19/2014 09:46:00 23:59:59 CLS Outpatient HARMAN LU RIVERA [place] [facility] PREOP RIGHT TOTAL KNE E INSTABILITY [id number] 06/13/2014 11:22:00 23:59:59 CLS Outpatient JOSUE SWENSON MD [facility] CARD CAD,HTN,HLP SOB [id number] 06/06/2014 11:56:00 23:59:59 CLS Outpatient JOSUE SWENSON MD [facility] CARD CAD,HTN,HLP SOB [id number] 06/04/2014 09:12:00 09:12:00 CAN Preadmit RIVERA HAMMER DO [facility] LAB TOTAL KNEE REVISION [id number] 05/04/2014 13:51:00 23:59:59 CLS Outpatient JOSUE SWENSON MD [facility] CARD CAD,HTN,HLP,SOB [id number] 11/23/2013 14:17:00 15:09:00 DIS Outpatient CON VILLAGOMEZ APRN [facility] REHAB S/P R TKR;PCL TEAR;KNEE INSTABILITY [id number] 08/08/2013 10:15:00 17:07:00 DIS Inpatient HARMAN LU RIVERA Xavier [facility] SURGICAL RIGHT KNEE DEGENERATIV E JOINT DISEASE [id number] 08/01/2013 09:49:00 23:59:59 CLS Outpatient HARMAN LU RIVERA [place] [facility] PREOP RIGHT KNEE DEGE NERATVIE JOINT DISEASE [id number] 07/25/2013 12:18:00 10:15:00 DIS Inpatient MALENA MCCABE DO [facility] SURGICAL NAIL GUN INJURY [id number] 01/12/2020 09:00:00 P EN Preadmit JOSUE SWENSON MD [facility] CATH ABN STRESS TEST,CP,CAD,SOB,H LP [id number] 01/10/2020 06:59:[address] Outpatient LEELA HARRISON, JOSUE Cardoso [facility] [id number] 12/11/2011 09:44:00 Document Registration [id number] 12/17/2010 10:49:00 Document Registration [id number] 11/27/2010 06:17:00 Document Registration [id number] 03/06/2010 08:52:00 Document Registration [id number] 12/22/2018 12:15:00 Document Registration [id number] 12/20/2018 14:13:00 Document Registration
== END 2020-01-12 14:00 | disposition home or self-care (01) ==
LOC: CATH 07:06 → SDC 09:41 → CATH 14:00
PROVIDERS: ATTEND Internal Medicine Cardiovascular Disease
DX: I25.10 Atherosclerotic heart disease of native coronary artery without angina pectoris (principal); R07.9 Chest pain, unspecified; Z95.1 Presence of aortocoronary bypass graft; R94.39 Abnormal result of other cardiovascular function study; I10 Essential (primary) hypertension; E78.5 Hyperlipidemia, unspecified; I07.1 Rheumatic tricuspid insufficiency; M19.91 Primary osteoarthritis, unspecified site; F17.220 Nicotine dependence, chewing tobacco, uncomplicated
CPT/HCPCS: 71045; 80053; 80061; 81000; 85027; 85610; 85730; 87081; 93455; C1760; C1894; 36415

== ENCOUNTER → 2020-05-16 | Outpatient (CLI) | payer MEDICARE ==
[~2020-05-16] MED LIST changes: +ATOR40TA70 PO; +CARV25TA PO; +CETI10TA17 PO; +DONE10TA41 PO; +HYDR25TA4 PO; +ISOS30TA3 PO; +LIPA1CAP67 PO; +LISI40TA PO; +METO5TAB2 PO; +MONT10TA26 PO; -PANT40TA3 PO; +PANT40TA52 PO; +PRAZ2CAP2 PO; +QUET100T PO; +RT-ALBUINH INH; +TOPI50TA13 PO; +TRZ50T PO; +VORT20TA PO
== END ==
LOC: LABNPT 12:55
PROVIDERS: ATTEND Nurse Practitioner Family
DX: Z20.828 Contact with and (suspected) exposure to other viral communicable diseases (principal)
CPT/HCPCS: 87635

== ENCOUNTER → 2021-09-03 | Outpatient (CLI) | payer MEDICARE, OTHER ==
[~2021-09-03] MED LIST changes: -ISOS30TA3 PO; +ISOS30TA82 PO; -LISI-552 PO; +LISI20TA26 PO; -LISI40TA PO; +LISI40TA9 PO; +MONT-40 PO; -MONT10TA26 PO
--- NOTE | 2021-09-03 11:29 | Diagnostic Imaging Report ---
PROCEDURE: US DOPPLER ABD/COMPLETE. TECHNIQUE: Multiple Real-time grayscale images were obtained over the kidneys in various projections. Duplex evaluation of renal arteries was also attempted. INDICATION: Hypertension. FINDINGS: The right kidney measures 11.8 x 5.7 x 5.3 cm and the left 10.3 x 5.4 x 6.2 cm. The cortical thickness and echogenicity are normal. There is no calculus or hydronephrosis. There is a cyst in the mid left kidney measuring 3.2 cm in diameter. Doppler evaluation of the renal arteries was performed bilaterally. Velocities within the proximal, mid, and distal renal arteries bilaterally are normal. The renal artery to aorta ratios are normal. Duplex waveforms appear to be normal. There is no evidence of renal artery stenosis. IMPRESSION: Left renal cyst. The study is otherwise unremarkable. There are no findings to suggest renal artery stenosis. Dictated by: Dictated on workstation # [id number]
== END ==
LOC: RAD 10:00
PROVIDERS: ATTEND Internal Medicine Cardiovascular Disease
DX: N28.1 Cyst of kidney, acquired (principal); I10 Essential (primary) hypertension
CPT/HCPCS: 93975

== ENCOUNTER → 2021-10-28 | Outpatient (CLI) | payer MEDICARE, OTHER ==
[~2021-10-28] MED LIST changes: +RT-ALBUTEROL SULF 2.5 MG/3 ML PRE-MIX VIAL INH ONE
== END ==
LOC: RT 14:09
PROVIDERS: ATTEND Nurse Practitioner
DX: R05.3 Chronic cough (principal)
CPT/HCPCS: 94060; 94726; 94729

== ENCOUNTER → 2023-04-23 | Outpatient (CLI) | payer MEDICARE, OTHER ==
[~2023-04-23] MED LIST changes: -RT-ALBUTEROL SULF 2.5 MG/3 ML PRE-MIX VIAL INH ONE; +TOPI-241 PO; -TOPI50TA13 PO
[2023-04-23 10:23] LABS: HEMATOCRIT 39 % (40-54); HEMOGLOBIN 12.7 g/dL (13.3-17.7); MEAN CORPUSCULAR HEMOGLOBIN 30 pg (25-34); MEAN CORPUSCULAR HGB CONC 33 g/dL (32-36); MEAN CORPUSCULAR VOLUME 91 fL (80-99); MEAN PLATELET VOLUME 8.3 fL (9.0-12.2); PLATELET COUNT 256 10^3/uL (130-400); WHITE BLOOD COUNT 9.5 10^3/uL (4.3-11.0)
--- NOTE | 2023-04-23 12:30 | Diagnostic Imaging Report ---
INDICATION: Soft tissue mass in the right neck. Sonographic interrogation of the area palpable abnormality was performed. This appears to correspond to the region of the right submandibular gland. There is asymmetry between the right and left submandibular gland. Right submandibular glands proximal by 5.9 x 1.8 x 3.1 cm and left side gland is 2.9 x 1.2 x 1.4 cm. There is a small approximately 5 mm cyst within the right submandibular gland. No lymphadenopathy is detected. Thyroid is unremarkable. IMPRESSION: There is asymmetric enlargement of the right submandibular gland, perhaps owing to sialoadenitis. CT soft tissue neck with contrast would be useful for further evaluation if clinically indicated. No other abnormalities are seen. Dictated by: Dictated on workstation # [id number]
== END ==
LOC: RAD 10:13
PROVIDERS: ATTEND Nurse Practitioner
DX: R22.1 Localized swelling, mass and lump, neck (principal)
CPT/HCPCS: 36415; 76536; 85027